=== PATIENT | female | born 1970 | race Caucasian/White ===

== ENCOUNTER 2022-06-15 09:57 | Outpatient (CLI) | payer OTHER, SELFPAY | END 2022-06-15 09:58 | disposition home or self-care (01) | PROVIDERS: PCP Emergency Medicine; Visit Provider Emergency Medicine | DX: Z00.00 Encounter for general adult medical examination without abnormal findings (principal); E11.9 Type 2 diabetes mellitus without complications; E78.5 Hyperlipidemia, unspecified | CPT/HCPCS: 80053; 80061; 82043; 82570 ==

== ENCOUNTER 2023-02-13 14:05 | Outpatient (CLI) | payer OTHER, SELFPAY | END 2023-02-13 14:06 | disposition home or self-care (01) | LOC: LKVREF 14:07 | PROVIDERS: PCP Emergency Medicine; Visit Provider Emergency Medicine | DX: E78.5 Hyperlipidemia, unspecified (principal); E11.9 Type 2 diabetes mellitus without complications; G25.71 Drug induced akathisia; T43.505A Adverse effect of unspecified antipsychotics and neuroleptics, initial encounter | CPT/HCPCS: 84439; 84443 ==

== ENCOUNTER 2023-02-20 12:29 | Outpatient (CLI) | payer OTHER, SELFPAY | END 2023-02-20 12:30 | disposition home or self-care (01) | PROVIDERS: PCP Emergency Medicine; Visit Provider Emergency Medicine | DX: R79.89 Other specified abnormal findings of blood chemistry (principal); E78.5 Hyperlipidemia, unspecified; E11.9 Type 2 diabetes mellitus without complications | CPT/HCPCS: 80053; 80061; 82043; 82570 ==

== ENCOUNTER 2023-03-12 13:33 | Outpatient (CLI) | payer OTHER, SELFPAY ==
--- NOTE | 2023-03-12 13:20 | CRLHL7_ITS ---
For Patients: As a result of the Century Cures Act, medical imaging exams and procedure reports are released immediately into your electronic medical record. You may view this report before your referring provider. If you have questions, please contact your health care provider. BILATERAL SCREENING MAMMOGRAM WITH COMPUTER-AIDED DETECTION TECHNIQUE: CC and MLO views were obtained. These mammographic images have been obtained using full-field digital technique. These mammographic images were interpreted with the benefit of computer-aided detection. COMPARISON FILM: 08/03/20, 07/12/18. FINDINGS: There are scattered areas of fibroglandular density IMPRESSION: There is no radiographic evidence for malignancy. ASSESSMENT: BI-RADS Category 1: Negative RECOMMENDATION: Routine screening mammogram in 1 year. A lay language report of this examination will be provided to the patient. Denilson Huynh M.D. Diagnostic Radiologist [email or web address] HARLEY/[email or web address] Transcribed: 5:04 p.mJacquelin wilson/Dictated by: Denilson Huynh MD @ 03/22/2023 12:48:00 PM (Electronically Signed)
--- NOTE | 2023-03-12 14:00 | CRLHL7_ITS ---
For Patients: As a result of the Century Cures Act, medical imaging exams and procedure reports are released immediately into your electronic medical record. You may view this report before your referring provider. If you have questions, please contact your health care provider. INDICATION: Lung cancer screening. Significant smoking history. TECHNIQUE: Low-dose volumetric helical scanning of the thorax was performed without IV contrast material. Coronal and sagittal reconstructions were obtained. COMPARISON: None. FINDINGS: A noncalcified pleural-based 7 mm right upper lobe nodule is noted on image 33 of series 3. A similar noncalcified pleural-based 5 mm right upper lobe nodule is noted on image 27. A noncalcified 5 mm right apical nodule is noted on image 21. A noncalcified 3 mm right lower lobe nodule is noted on image 55. A noncalcified, triangular, perifissural 6 mm left lower lobe nodule is noted on image 80. The lungs are clear. There is no significant airway abnormality. No pleural effusion is demonstrated. There is no mediastinal or hilar adenopathy. The heart size is normal. Calcified coronary arterial plaque is demonstrated. Images of the upper abdomen are unremarkable except for postop changes of cholecystectomy. IMPRESSION: 1. Noncalcified pulmonary nodules, as above, the largest a pleural-based 7 mm right upper lobe nodule. Lung-RADS CATEGORY 2: BENIGN APPEARANCE OR BEHAVIOR: Continue annual screening with low-dose chest CT in 12 months. 2. Coronary artery disease. Please note that all CT scans at this facility use dose modulation, iterative reconstruction, and/or weight-based dosing when appropriate to reduce radiation dose to as low as reasonably achievable. Dictated by Marcio King MD @ 03/13/2023 8:55:59 AM (Electronically Signed)
== END 2023-03-12 13:34 | disposition home or self-care (01) ==
LOC: MAMMO 13:34
PROVIDERS: PCP Emergency Medicine; Visit Provider Emergency Medicine
DX: Z12.31 Encounter for screening mammogram for malignant neoplasm of breast (principal); F17.210 Nicotine dependence, cigarettes, uncomplicated; R91.8 Other nonspecific abnormal finding of lung field; I25.10 Atherosclerotic heart disease of native coronary artery without angina pectoris; Z12.2 Encounter for screening for malignant neoplasm of respiratory organs
CPT/HCPCS: 71271; 77067

== ENCOUNTER 2023-04-02 09:51 | Outpatient (CLI) | payer OTHER, SELFPAY | END 2023-04-02 09:52 | disposition home or self-care (01) | LOC: OP CLINIC 09:53 | PROVIDERS: PCP Emergency Medicine; Visit Provider Internal Medicine | DX: Z53.8 Procedure and treatment not carried out for other reasons (principal) ==

== ENCOUNTER 2023-04-06 09:47 | Outpatient (CLI) | payer OTHER, SELFPAY ==
--- NOTE | 2023-04-06 10:47 | W.ANESCHARGE ---
Anesthesia Charges Start Date/Time Anesthesia Start Date: 04/06/23 Anesthesia Start Time: 10:40 Stop Date/Time Anesthesia Stop Date: 04/06/23 Anesthesia Stop Time: 11:11
--- NOTE | 2023-04-06 11:14 | W.ANESCHARGE ---
Anesthesia Charges Start Date/Time Anesthesia Start Date: 04/06/23 Anesthesia Start Time: 10:40 Stop Date/Time Anesthesia Stop Date: 04/06/23 Anesthesia Stop Time: 11:11
== END 2023-04-06 09:48 | disposition home or self-care (01) ==
LOC: OP CLINIC 09:48
PROVIDERS: PCP Emergency Medicine; Visit Provider Internal Medicine
DX: Z12.11 Encounter for screening for malignant neoplasm of colon (principal); K57.30 Diverticulosis of large intestine without perforation or abscess without bleeding
CPT/HCPCS: 00811; 00812; 45378; J2704

== ENCOUNTER 2023-04-17 20:37 | Outpatient (CLI) | payer OTHER, SELFPAY | END 2023-04-17 20:38 | disposition home or self-care (01) | LOC: LKVREF 20:38 | PROVIDERS: PCP Emergency Medicine; Visit Provider Emergency Medicine | DX: E11.9 Type 2 diabetes mellitus without complications (principal); Z13.21 Encounter for screening for nutritional disorder | CPT/HCPCS: 82043; 82565; 82570; 82607 ==

== ENCOUNTER 2023-06-21 20:39 | Emergency (ER) | payer OTHER, SELFPAY ==
[2023-06-21 20:49] VITALS: BP 130/84; PULSE 116; RESP 20; TEMP 36.7; O2SAT 95; BMI 30.9
--- NOTE | 2023-06-21 21:01 | CT_ITS ---
Patient: DELMY JORDAN Facility:?[facility] RIS Patient ID:?[id number] Site Patient ID:?[id number] Site :?[id number] Study:?CT-Abdomen/Pelvis W/O-06/21/2023 9:42:23 PM Ordering Physician:GITA Final Report: INDICATION: Pelvic pain, hematuria TECHNIQUE: CT Abdomen and pelvis without i.v. contrast. Coronal and sagittal reformats were obtained. COMPARISON: None FINDINGS: Lower chest: Unremarkable. Liver: Unremarkable. Spleen: Unremarkable. Pancreas: Unremarkable. Gallbladder: Previous cholecystectomy noted with no significant intra- or extrahepatic biliary ductal dilatation seen. Kidney: Mild right hydroureter is present with infiltration of the surrounding periureteral fat seen. No obstructing calculi are identified. Adrenal: Unremarkable. Bowel: Moderate diverticulosis of the sigmoid colon is present with no evidence of diverticulitis. There is a gasless density near the ileocecal valve without any apparent obstruction of the terminal ileum. This is most likely due to small bowel contents incompletely mixing with cecal stool. The appendix is not identified. Vascular: Unremarkable. Lymph: Unremarkable. Peritoneum: Unremarkable. No pneumoperitoneum is seen. No significant ascites is noted. Pelvis: The patient is status post hysterectomy. Soft tissue: Unremarkable. Bone: Ill-defined patchy sclerosis of the left posterior iliac bone is seen. IMPRESSIONS: 1. Mild right hydroureter is present with infiltration of the surrounding periureteral fat seen. No obstructing calculi are identified. Correlation with history and urinalysis is recommended to distinguish between a recently passed stone or an ascending urinary tract infection. 2. Ill-defined patchy sclerosis of the left posterior iliac bone is seen. Further evaluation with MRI or bone scan is recommended, especially if there is history of primary malignancy. Dictated by Carroll Woo MD @ 06/21/2023 9:48:59 PM Please note that all CT scans at this facility use dose modulation, iterative reconstruction, and/or weight-based dosing when appropriate to reduce radiation dose to as low as reasonably achievable. Dictated by: Carroll Woo MD @ 06/21/2023 21:49:02 Signed by:?Carroll Woo MD @06/21/2023 9:49:02 PM (Electronic Signature)
[2023-06-21 21:03] LABS: Appearance Urine Turbid (Clear); Bilirubin Urine Negative (Negative); Blood Urine 3+ (Negative); Glucose Urine Negative (Negative); Ketones Urine Negative (Negative); Leukocyte Esterase Urine Trace (Negative); Nitrite Urine Negative (Negative); Protein Urine 3+ (Negative); Specific Gravity Urine 1.025 (1.000-1.030)
[2023-06-21 21:07] LABS: Color Urine Red (Yellow)
[2023-06-21 21:08] LABS: RBC Urine >100 (0-2); WBC Urine 0-2 (0-5)
[2023-06-21 21:32] LABS: Basophils Absolute Auto 0.02 K/uL (0.00-0.30); Basophils Percent Auto 0.2 % (0.0-3.0); Eosinophils Absolute Auto 0.11 K/uL (0.00-0.50); Eosinophils Percent Auto 1.1 % (0.0-7.0); Hematocrit 40.7 % (33.0-51.0); Hemoglobin* 13.3 gm/dL (12.0-16.0); Immature Granulocytes Abs Auto 0.03 K/uL (0.00-0.30); Immature Granulocytes Pct Auto 0.3 %; Lymphocytes Absolute Auto 2.42 K/uL (0.90-2.90); Lymphocytes Percent Auto 23.6 % (20-44); Mean Corpuscular HGB Conc 33 gm/dL (32-36); Mean Corpuscular Hemoglobin 31 pg (26-34); Mean Corpuscular Volume 96 fL (80-100); Monocytes Percent Auto 5.1 % (0.0-11.0); Neutrophils Absolute Auto 7.16 K/uL (1.7-7.0); Neutrophils Percent Auto 69.7 % (42.0-72.0); Platelet Count* 253 K/uL (140-440); RDW Coefficient of Variation % 14.3 % (11.5-15.5); Red Blood Count 4.25 m/uL (4.00-5.20); White Blood Count* 10.26 K/uL (4.50-11.00)
[2023-06-21 21:33] LABS: Slide Review Reflex No
[2023-06-21 21:49] LABS: Chloride* 108 mmol/L (96-114); Potassium* 3.9 mmol/L (3.6-5.1); Sodium* 140 mmol/L (135-149)
[2023-06-21 21:51] LABS: Creatinine* 0.5 mg/dL (0.5-1.5); Est. Creatinine Clearance* 112.36; Estimated Glomerular Filt Rate 112 ml/min
[2023-06-21 21:52] LABS: Anion Gap 3 mEq/L (7-15); Blood Urea Nitrogen* 12 mg/dL (7-30); Calcium* 9.1 mg/dL (8.4-10.6); Carbon Dioxide* 29 mmol/L (20-32); Glucose* 91 mg/dL (60-115)
[2023-06-21 21:56] LABS: C Reactive Protein* 5.7 mg/dL (0.5-1.0)
[2023-06-21 21:59] VITALS: BP 117/67; PULSE 107; RESP 18; O2SAT 95
--- NOTE | 2023-06-21 23:40 | ED_ITS ---
HPI - General Adult General Date Seen: 06/21/23 Chief complaint: Abdominal Pain Stated complaint: Peeing blood, pelvic pain for a week, diverticulti Time Seen by Provider: 06/21/23 20:45 Source: patient, RN notes reviewed and old records reviewed Mode of arrival: ambulatory Limitations: no limitations History of Present Illness HPI narrative: Patient is a 52-year-old woman here with her for evaluation of hematuria and pelvic discomfort. She has noted some pelvic pain which she says has been across her entire pelvis for the past week to week and a half. She has taken occasional Tylenol for that. She denies any dysuria, frequency, or changes in her chronic urinary urgency. She has not had any vomiting, fevers or chills. Occasionally has had a little nausea. Tonight she noted hematuria which is what ultimately prompted her to come in. She has not had any unilateral flank pain but she says she has had some pain that radiates both sides of her back. She is status post hysterectomy. No vaginal bleeding. Other abdominal surgeries include and cholecystectomy. Other medical history reviewed. She does smoke, denies alcohol use. Here tonight with her . Related Data Home Medications Medication Instructions Recorded Confirmed sertraline 100 mg tablet 100 mg PO DAILY 02/13/23 06/21/23 risperidone 1 mg tablet mg PO 03/15/23 05/08/23 Previous Rx's Medication Instructions Recorded cyclobenzaprine 10 mg tablet 10 mg PO TID PRN muscle spasm #30 12/05/22 tabs lorazepam 0.5 mg tablet 0.5 mg PO BID PRN restlessness 02/13/23 #10 tabs pimecrolimus 1 % topical cream 1 applic topical BID #30 grams 02/20/23 (Elidel) albuterol sulfate 90 mcg/actuation 2 puff inhalation Q4H PRN 03/15/23 aerosol inhaler (Ventolin HFA) shortness of breath or wheezing #8.5 grams atorvastatin 80 mg tablet 80 mg PO QDAY #90 tabs 03/15/23 budesonide-formoterol HFA 160 2 puff inhalation BID #10.2 grams 03/15/23 mcg-4.5 mcg/actuation aerosol inhaler (Symbicort) gabapentin 600 mg tablet 600 mg PO TID #270 tabs 03/15/23 ipratropium 0.5 mg-albuterol 3 mg 3 ml inhalation TID #90 mL 03/15/23 (2.5 mg base)/3 mL nebulization soln metformin 500 mg tablet 1,000 mg (2 x 500 mg) PO BID #360 03/15/23 tabs sumatriptan succinate 100 mg tablet 100 mg PO .As Needed PRN migraine 03/15/23 headache #9 tabs albuterol sulfate 90 mcg/actuation 2 puff inhalation Q4H PRN 03/21/23 aerosol inhaler (Proventil HFA) shortness of breath or wheezing #8.5 grams peg 3350-electrolytes 236 240 ml PO ONCE #4,000 mL 03/30/23 gram-22.74 gram-6.74 gram-5.86 gram solution (Golytely) bupropion HCl 100 mg tablet,12 hr 100 mg PO QAM #30 tabs 04/30/23 sustained-release semaglutide 1 mg/dose (4 mg/3 mL) 1 mg (0.75 mL) subcut QWEEK #3 mL 04/30/23 subcutaneous pen injector (Ozempic) prednisone 20 mg tablet 40 mg (2 x 20 mg) PO QDAY #10 tabs 05/02/23 semaglutide 2 mg/dose (8 mg/3 mL) 2 mg (0.75 mL) subcut QWEEK #3 mL 05/02/23 subcutaneous pen injector (Ozempic) famotidine 20 mg tablet (Pepcid) 20 mg PO BID #60 tabs 05/08/23 ibuprofen 800 mg tablet 800 mg PO TID PRN pain #30 tabs 05/24/23 Allergies Allergy/AdvReac Type Severity Reaction Status Date / Time No Known Allergies Allergy Unknown Verified 06/21/23 20:49 Review of Systems Status of ROS: Reports: 10 or more systems reviewed and unremarkable except as noted in History and below [facility] Medical History SOB (shortness of breath) ?R06.02 - Shortness of breath (ICD-10) Cough ?R05.9 - Cough, unspecified (ICD-10) Rib fracture ?S22.39XA - Fracture of one rib, unspecified side, initial encounter for closed fracture (ICD-10) CAD (coronary artery disease) ?I25.10 - Atherosclerotic heart disease of [place] coronary artery without angina pectoris (ICD-10) Tubular adenoma ?D36.9 - Benign neoplasm, unspecified site (ICD-10) Eyelid dermatitis, allergic/contact ?H01.119 - Allergic dermatitis of unspecified eye, unspecified eyelid (ICD- 10) Elevated TSH ?R79.89 - Other specified abnormal findings of blood chemistry (ICD-10) Hoarseness of voice ?R49.0 - Dysphonia (ICD-10) Screening mammogram for breast cancer ?Z12.31 - Encounter for screening mammogram for malignant neoplasm of breast (ICD-10) Smoking greater than 40 pack years ?F17.210 - Nicotine dependence, cigarettes, uncomplicated (ICD-10) Antipsychotic-induced akathisia ?G25.71 - Drug induced akathisia (ICD-10) ?T43.505A - Adverse effect of unspecified antipsychotics and neuroleptics, initial encounter (ICD-10) Radicular pain ?M54.10 - Radiculopathy, site unspecified (ICD-10) Chronic constipation ?K59.09 - Other constipation (ICD-10) DOS (diffuse esophageal spasm) ?K22.4 - Dyskinesia of esophagus (ICD-10) Diverticulitis ?K57.92 - Diverticulitis of intestine, part unspecified, without perforation or abscess without bleeding (ICD-10) Encounter for smoking cessation counseling ?Z71.6 - Tobacco abuse counseling (ICD-10) Neuropathy ?G62.9 - Polyneuropathy, unspecified (ICD-10) Migraine ?G43.909 - Migraine, unspecified, not intractable, without status migrainosus (ICD-10) Depression ?F32.A - Depression, unspecified (ICD-10) Hand pain ?M79.643 - Pain in unspecified hand (ICD-10) Gestational diabetes ?O24.419 - Gestational diabetes mellitus in , unspecified control (ICD-10) Diabetes mellitus type 2, controlled ?E11.9 - Type 2 diabetes mellitus without complications (ICD-10) Cigarette smoker ?F17.210 - Nicotine dependence, cigarettes, uncomplicated (ICD-10) COPD (chronic obstructive pulmonary disease) ?J44.9 - Chronic obstructive pulmonary disease, unspecified (ICD-10) Hyperlipemia ?E78.5 - Hyperlipidemia, unspecified (ICD-10) Surgical History Hx of tonsillectomy ?Z90.89 - Acquired absence of other organs (ICD-10) History of repair of anterior cruciate ligament of right knee ?Z98.890 - Other specified postprocedural states (ICD-10) S/P NINA-BSO (total abdominal hysterectomy and bilateral salpingo-oophorectomy) ?Z90.710 - Acquired absence of both cervix and uterus (ICD-10) ?Z90.722 - Acquired absence of ovaries, bilateral (ICD-10) ?Z90.79 - Acquired absence of other genital organ(s) (ICD-10) History of endometriosis ?Z87.42 - Personal history of other diseases of the female genital tract (ICD-10) Hx laparoscopic cholecystectomy ?Z90.49 - Acquired absence of other specified parts of digestive tract (ICD- 10) History of carpal tunnel surgery of right wrist ?Z98.890 - Other specified postprocedural states (ICD-10) Hx of hernia repair ?Z98.890 - Other specified postprocedural states (ICD-10) ?Z87.19 - Personal history of other diseases of the digestive system (ICD-10) Hx of section ?Z98.891 - History of uterine scar from previous surgery (ICD-10) History of ear surgery ?Z98.890 - Other specified postprocedural states (ICD-10) Hx of colonoscopy ?Z98.890 - Other specified postprocedural states (ICD-10) Hx of esophagogastroduodenoscopy ?Z98.890 - Other specified postprocedural states (ICD-10) H/O dilation and curettage ?Z98.890 - Other specified postprocedural states (ICD-10) Family History Father Pancreatic cancer Long QT syndrome Brother Bipolar 1 disorder Schizophrenia Mother Coronary artery disease Social History Smoking Status: Current every day smoker Exam Narrative: Exam Narrative: Vital signs as noted above. In general, an alert, well-appearing patient. She looks comfortable. Head: Normocephalic, atraumatic. Eyes: Pupils are equal reactive. Extraocular movements are full. Conjunctivae are normal. ENT: Mucous membranes are moist. Throat is normal. Neck: Supple without lymphadenopathy. Heart: Regular rate and rhythm. No murmur or rub. Lungs: Clear bilaterally. No increased work of breathing, crackles or wheezes. Abdomen: Soft and nontender. No rebound guarding or rigidity. Extremities: Well perfused. No edema. No calf tenderness. Pulses intact. Neurologic: Patient is alert and oriented to person and place. Speech is fluent. Face is symmetric. Moves all extremities equally. Affect: Normal. Skin: Warm and dry. Well perfused. Const: Vital Signs, click to edit/add: Vital Signs - 24 hr 06/21/23 20:49 06/21/23 21:59 Temperature 98.1 F Pulse Rate [Left P ulse Oximeter] 116 H 107 H Respiratory Rate 20 18 Blood Pressure [Ri ght Upper Arm] 130/84 117/67 Pulse Oximetry 95 95 Oxygen Delivery Me thod Room Air Room Air Documenting provider has reviewed patient's vital signs: yes Course Course ED Course: I ordered a CT scan without contrast. Diagnostic considerations would include urinary tract infection, bladder or kidney stones, renal mass, other obstructive process. Labs were notable for a normal white blood cell count of 10.3, normal hemoglobin of 13.3 and normal platelets. Metabolic panel is really unremarkable, CRP was little elevated at 5.7. Creatinine was 0.5. UA notable for greater than 100 red cells, 0-2 white cells. Negative nitrites. Patient was comfortable here while here, did not require anything for pain. CT abdomen read by radiology as follows:FINDINGS: Lower chest: Unremarkable. Liver: Unremarkable. Spleen: Unremarkable. Pancreas: Unremarkable. Gallbladder: Previous cholecystectomy noted with no significant intra- or extrahepatic biliary ductal dilatation seen. Kidney: Mild right hydroureter is present with infiltration of the surrounding periureteral fat seen. No obstructing calculi are identified. Adrenal: Unremarkable. Bowel: Moderate diverticulosis of the sigmoid colon is present with no evidence of diverticulitis. There is a gasless density near the ileocecal valve without any apparent obstruction of the terminal ileum. This is most likely due to small bowel contents incompletely mixing with cecal stool. The appendix is not identified. Vascular: Unremarkable. Lymph: Unremarkable. Peritoneum: Unremarkable. No pneumoperitoneum is seen. No significant ascites is noted. Pelvis: The patient is status post hysterectomy. Soft tissue: Unremarkable. Bone: Ill-defined patchy sclerosis of the left posterior iliac bone is seen. IMPRESSIONS: 1. Mild right hydroureter is present with infiltration of the surrounding periureteral fat seen. No obstructing calculi are identified. Correlation with history and urinalysis is recommended to distinguish between a recently passed stone or an ascending urinary tract infection. 2. Ill-defined patchy sclerosis of the left posterior iliac bone is seen. Further evaluation with MRI or bone scan is recommended, especially if there is history of primary malignancy. I discussed all this with the patient. I did neglect to put the iliac bone findings on her discharge instructions, but I reviewed this carefully with both patient and her has been. She tells me that she has been seeing an orthopedic clinic recently for problems with her sciatic nerve, and has been waiting on ins urance approval to get an MRI of her back. We discussed ways to show the orthopedic clinic the report and or images from tonight CT scan and she plans to follow this up with them. With regard to the hematuria, it is possible that she simply passed a stone. Right now she is comfortable. Discussed with her at this time that there was no evidence of urinary tract infection or obvious source of obstruction but it does look like that kidney is obstructed. If hematuria and discomfort do not resolve over the next day or 2 I would recommend Urology follow-up to make sure that there is not some sort of soft tissue process. Return to the ER at any time for severe uncontrolled pain, fevers, chills, vomiting, urinary retention, or other acute worsening. Vital Signs Vital signs: Initial Vital Signs Temperature 98.1 F 06/21/23 20:49 Temperature Source Temporal Artery Scan 06/21/23 20:49 Pulse Rate 116 H 06/21/23 20:49 Pulse Rhythm Regular, Irregularly Irregular 06/21/23 20:49 Respiratory Rate 20 06/21/23 20:49 Blood Pressure 130/84 06/21/23 20:49 Blood Pressure Mean 99 06/21/23 20:49 Blood Pressure Position Sitting 06/21/23 20:49 Pulse Oximetry 95 06/21/23 20:49 Oxygen Delivery Method Room Air 06/21/23 20:49 Vital Signs Temperature 98.1 F 06/21/23 20:49 Pulse Rate 116 H 06/21/23 20:49 Respiratory Rate 20 06/21/23 20:49 Blood Pressure 130/84 06/21/23 20:49 Pulse Oximetry 95 06/21/23 20:49 Oxygen Delivery Method Room Air 06/21/23 20:49 Temperature 98.1 F 06/21/23 20:49 Pulse Rate 107 H 06/21/23 21:59 Respiratory Rate 18 06/21/23 21:59 Blood Pressure 117/67 06/21/23 21:59 Pulse Oximetry 95 06/21/23 21:59 Oxygen Delivery Method Room Air 06/21/23 21:59 Medical Decision Making Lab Data Labs: Lab Results 06/21/23 06/21/23 Range/Units 20:43 21:25 WBC 10.26 (4.50-11.00) K/uL RBC 4.25 (4.00-5.20) m/uL Hgb 13.3 (12.0-16.0) gm/dL Hct 40.7 (33.0-51.0) % MCV 96 (80-100) fL MCH 31 (26-34) pg MCHC 33 (32-36) gm/dL RDW Coeff of [place] 14.3 (11.5-15.5) % Plt Count 253 (140-440) K/uL Neut % (Auto) 69.7 (42.0-72.0) % Lymph % (Auto) 23.6 (20-44) % [place] % (Auto) 5.1 (0.0-11.0) % Eos % (Auto) 1.1 (0.0-7.0) % Baso % (Auto) 0.2 (0.0-3.0) % Neut # (Auto) 7.16 H (1.7-7.0) K/uL Lymph # (Auto) 2.42 (0.90-2.90) K/uL [place] # (Auto) 0.50 (0.00-0.90) K/UL Eos # (Auto) 0.11 (0.00-0.50) K/uL Baso # (Auto) 0.02 (0.00-0.30) K/uL Abs Immat Gran (auto) 0.03 (0.00-0.30) K/uL Imm/Tot Granulo (auto) 0.3 % Sodium 140 (135-149) mmol/L Potassium 3.9 (3.6-5.1) mmol/L Chloride 108 (96-114) mmol/L Carbon Dioxide 29 (20-32) mmol/L Anion Gap 3 L (7-15) mEq/L BUN 12 (7-30) mg/dL Creatinine 0.5 (0.5-1.5) mg/dL Estimated Creat Clear 112.36 Estimated GFR 112 ml/min Glucose 91 (60-115) mg/dL Calcium 9.1 (8.4-10.6) mg/dL C-Reactive Protein 5.7 H (0.5-1.0) mg/dL Urine Color Red A Cancelled (Yellow) Urine Appearance Turbid A Cancelled (Clear) Urine pH 7.0 Cancelled (5.0-8.5) Ur Specific [place] 1.025 Cancelled (1.000-1.030) Urine Protein 3+ A Cancelled (Negative) Urine Glucose (UA) Negative Cancelled (Negative) Urine Ketones Negative Cancelled (Negative) Urine Blood 3+ A Cancelled (Negative) Urine Nitrite Negative Cancelled (Negative) Urine Bilirubin Negative Cancelled (Negative) Urine Urobilinogen 1.0 Cancelled (0.2-1.0) Ur Leukocyte Esterase Trace A Cancelled (Negative) Urine RBC >100 A Cancelled (0-2) Urine WBC 0-2 Cancelled (0-5) Urine WBC Clumps Cancelled Ur Squamous Epith Cells None Cancelled (None-Few) [place] Biurate Crystals Cancelled Calcium Carbonate Cryst Cancelled Calcium Phosphate Cryst Cancelled Calcium Oxalate Crystal Cancelled Cystine Crystals Cancelled Uric Acid Crystals Cancelled Triple Phos Crystals Cancelled Sulfur Crystals Cancelled Cholesterol Crystals Cancelled Tyrosine Crystals Cancelled Hippuric Acid Crystals Cancelled Amorphous Sediment Cancelled Other Sediment Cancelled Urine Bacteria None Cancelled (None) Fatty Casts Cancelled Hyaline Casts Cancelled Fine Granular Casts Cancelled Coarse Granular Casts Cancelled Waxy Casts Cancelled RBC Casts Cancelled WBC Casts Cancelled Other Casts Cancelled Urine Starch Cancelled Urine Mucus Cancelled Urine Trichomonas Cancelled Urine Yeast Cancelled Discharge Plan Discharge Clinical Impression: Hydronephrosis, Hematuria Patient Disposition: Home, Self-Care Condition: Improved Instructions: Hematuria (ED), Hydronephrosis (ED) Additional Instructions: Ibuprofen if needed. Blood in your urine and discomfort should resolve over the next 1-2 days. If not, please call Urology on Sunday to be seen in follow-up.[phone] is the phone number for [place] [facility]. They have multiple clinic locations. If at any time you have severe uncontrolled pain, new symptoms such as fever, chills, vomiting, inability to void, return to the emergency department. Prescriptions: No Action sertraline 100 mg tablet 100 mg PO DAILY lorazepam 0.5 mg tablet 0.5 mg PO BID PRN (Reason: restlessness ) Qty: 10 0RF risperidone 1 mg tablet PO sumatriptan succinate 100 mg tablet 100 mg PO .As Needed PRN (Reason: migraine headache) Qty: 9 11RF Rx Instructions: ONE TAB AT ONSET OF HEADACHE, MAY REPEAT ONCE IN 2 HRS, MAX 200 MG/24 HRS metformin 500 mg tablet 1,000 mg PO BID Qty: 360 3RF gabapentin 600 mg tablet 600 mg PO TID Qty: 270 3RF budesonide-formoterol [Symbicort] 160-4.5 mcg/actuation HFA aerosol inhaler 2 puff inhalation BID Qty: 10.2 5RF albuterol sulfate [Ventolin HFA] 90 mcg/actuation HFA aerosol inhaler 2 puff inhalation Q4H PRN (Reason: shortness of breath or wheezing) Qty: 8.5 11RF ipratropium-albuterol 0.5 mg-3 mg(2.5 mg base)/3 mL solution for nebulization 3 ml inhalation TID Qty: 90 11RF atorvastatin 80 mg tablet 80 mg PO QDAY Qty: 90 1RF Ozempic 2 mg/dose (8 mg/3 mL) pen injector 2 mg subcut QWEEK Qty: 3 2RF prednisone 20 mg tablet 40 mg PO QDAY Qty: 10 0RF pimecrolimus [Elidel] 1 % cream 1 applic topical BID Qty: 30 0RF famotidine [Pepcid] 20 mg tablet 20 mg PO BID Qty: 60 5RF cyclobenzaprine 10 mg tablet 10 mg PO TID PRN (Reason: muscle spasm) Qty: 30 0RF albuterol sulfate [Proventil HFA] 90 mcg/actuation HFA aerosol inhaler 2 puff inhalation Q4H PRN (Reason: shortness of breath or wheezing) Qty: 8.5 11RF peg 3350-electrolytes [Golytely] 236-22.74-6.74 -5.86 gram recon soln 240 ml PO ONCE Qty: 4000 0RF Rx Instructions: 4pm day prior to procedure. Drink 8oz glass every 15 minutes until 1/2 of solution is gone. 6 hours prior to your procedure time drink 8oz glass every 15 minutes until remaining solution is gone. bupropion HCl 100 mg tablet sustained-release 12 hr 100 mg PO QAM Qty: 30 0RF Ozempic 1 mg/dose (4 mg/3 mL) pen injector 1 mg subcut QWEEK Qty: 3 0RF ibuprofen 800 mg tablet 800 mg PO TID PRN (Reason: pain) Qty: 30 0RF Follow Up/Referrals: Ilana Steve MD [Primary Care Provider] - Stand Alone Forms: [facility] Info Instructions
== END 2023-06-21 22:51 | disposition home or self-care (01) ==
PROVIDERS: Emergency Provider Emergency Medicine; PCP Emergency Medicine
DX: R31.9 Hematuria, unspecified (principal); N13.2 Hydronephrosis with renal and ureteral calculous obstruction
CPT/HCPCS: 36415; 74176; 80048; 81001; 85025; 86140; 87086; 87186; 99284

== ENCOUNTER 2023-10-04 13:37 | Outpatient (REF) | payer OTHER, SELFPAY ==
[2023-10-04 14:06] LABS: Basophils Absolute Auto 0.03 K/uL (0.00-0.30); Basophils Percent Auto 0.6 % (0.0-3.0); Eosinophils Percent Auto 2.1 % (0.0-7.0); Hematocrit 40.2 % (33.0-51.0); Hemoglobin* 13.4 gm/dL (12.0-16.0); Immature Granulocytes Abs Auto 0.06 K/uL (0.00-0.30); Immature Granulocytes Pct Auto 1.3 %; Lymphocytes Absolute Auto 1.17 K/uL (0.90-2.90); Lymphocytes Percent Auto 24.7 % (20-44); Mean Corpuscular HGB Conc 33 gm/dL (32-36); Mean Corpuscular Hemoglobin 32 pg (26-34); Mean Corpuscular Volume 96 fL (80-100); Monocytes Percent Auto 0.4 % (0.0-11.0); Neutrophils Absolute Auto 3.36 K/uL (1.7-7.0); Neutrophils Percent Auto 70.9 % (42.0-72.0); Platelet Count* 240 K/uL (140-440); RDW Coefficient of Variation % 12.3 % (11.5-15.5); White Blood Count* 4.74 K/uL (4.50-11.00)
[2023-10-04 14:21] LABS: Slide Review Reflex No
== END 2023-10-04 13:38 | disposition home or self-care (01) ==
LOC: NPINS 13:37
PROVIDERS: Internal Medicine Hematology & Oncology; PCP Emergency Medicine
DX: J38.1 Polyp of vocal cord and larynx (principal); C83.38 Diffuse large B-cell lymphoma, lymph nodes of multiple sites
CPT/HCPCS: 85025

== ENCOUNTER 2023-10-24 10:11 | Outpatient (CLI) | payer OTHER, SELFPAY | END 2023-10-24 10:12 | disposition home or self-care (01) | LOC: NFLDREF 10-29 07:03 | PROVIDERS: PCP Physician Assistant Medical; Referring Provider Emergency Medicine; Visit Provider Emergency Medicine | DX: E78.2 Mixed hyperlipidemia (principal) | CPT/HCPCS: 80061 ==

== ENCOUNTER 2023-10-25 11:57 | Outpatient (REF) | payer OTHER, SELFPAY ==
[2023-10-25 12:36] LABS: Basophils Absolute Auto 0.02 K/uL (0.00-0.30); Basophils Percent Auto 0.3 % (0.0-3.0); Eosinophils Absolute Auto 0.04 K/uL (0.00-0.50); Eosinophils Percent Auto 0.6 % (0.0-7.0); Hematocrit 42.3 % (33.0-51.0); Hemoglobin* 14.2 gm/dL (12.0-16.0); Immature Granulocytes Abs Auto 0.04 K/uL (0.00-0.30); Immature Granulocytes Pct Auto 0.6 %; Lymphocytes Percent Auto 15.5 % (20-44); Mean Corpuscular HGB Conc 34 gm/dL (32-36); Mean Corpuscular Hemoglobin 32 pg (26-34); Mean Corpuscular Volume 94 fL (80-100); Monocytes Percent Auto 0.6 % (0.0-11.0); Neutrophils Percent Auto 82.4 % (42.0-72.0); Platelet Count* 233 K/uL (140-440); RDW Coefficient of Variation % 12.8 % (11.5-15.5); Red Blood Count 4.51 m/uL (4.00-5.20)
[2023-10-25 12:38] LABS: Slide Review Reflex No
== END 2023-10-25 11:58 | disposition home or self-care (01) ==
LOC: NPINS 11:57
PROVIDERS: PCP Physician Assistant Medical; Visit Provider Internal Medicine Hematology & Oncology
DX: J38.1 Polyp of vocal cord and larynx (principal); C83.38 Diffuse large B-cell lymphoma, lymph nodes of multiple sites
CPT/HCPCS: 85025

== ENCOUNTER 2023-11-01 15:04 | Outpatient (REF) | payer OTHER, SELFPAY ==
[2023-11-01 15:42] LABS: Basophils Percent Auto 1.8 % (0.0-3.0); Eosinophils Percent Auto 2.3 % (0.0-7.0); Hematocrit 39.1 % (33.0-51.0); Hemoglobin* 12.7 gm/dL (12.0-16.0); Lymphocytes Percent Auto 46.2 % (20-44); Mean Corpuscular HGB Conc 33 gm/dL (32-36); Mean Corpuscular Hemoglobin 31 pg (26-34); Mean Corpuscular Volume 97 fL (80-100); Monocytes Percent Auto 14.6 % (0.0-11.0); Neutrophils Percent Auto 35.1 % (42.0-72.0); Platelet Count* 163 K/uL (140-440); RDW Coefficient of Variation % 13.6 % (11.5-15.5); Red Blood Count 4.04 m/uL (4.00-5.20)
[2023-11-01 16:01] LABS: Slide Review Reflex Yes; White Blood Count* 1.71 K/uL (4.50-11.00)
[2023-11-01 16:02] LABS: Slide Review Acceptable Review (Acceptable)
== END 2023-11-01 15:05 | disposition home or self-care (01) ==
LOC: NPINS 15:04
PROVIDERS: PCP Physician Assistant Medical; Visit Provider Internal Medicine Hematology & Oncology
DX: J38.1 Polyp of vocal cord and larynx (principal); C83.38 Diffuse large B-cell lymphoma, lymph nodes of multiple sites
CPT/HCPCS: 85025

== ENCOUNTER 2023-11-20 18:24 | Inpatient (IN) | payer OTHER, SELFPAY ==
[2023-11-20] VITALS (23 sets, daily range): BP systolic 87–132; BP diastolic 37–79; PULSE 91–134; RESP 16–20; TEMP 37.3–39.6; O2SAT 86–96; BMI 29.5; BMI 29.6
--- NOTE | 2023-11-20 18:45 | CRLHL7_ITS ---
For Patients: As a result of the Century Cures Act, medical imaging exams and procedure reports are released immediately into your electronic medical record. You may view this report before your referring provider. If you have questions, please contact your health care provider. INDICATION: Dyspnea. TECHNIQUE: Chest radiographs, 2 views. COMPARISON: None. FINDINGS: Cardiovascular/Mediastinum: Normal heart size. Unremarkable. Lungs: No focal consolidation. Linear band like opacification of the lungs bilaterally, likely subsegmental atelectasis and/or scarring. Airways: Trachea remains midline. Pleura: No pleural effusions or pneumothorax. Bones: No acute osseous abnormalities. Upper abdomen: Unremarkable. IMPRESSION: No acute cardiopulmonary process. Dictated by Stevo Sheldon MD @ 11/20/2023 7:28:36 PM (Electronically Signed)
[2023-11-20] MEDS: ACETAMINOPHEN 500 MG TABLET 1000 MG PO (19:02)
--- OUTSIDE RECORDS SUMMARY | 2023-11-20 19:19 | XMS_ITS | Encounter Summary ---
Author Organization [facility] Address [address] [place] [address] Care Team Providers Care Securities And Real Estate Director Name Role Phone Umberto Mauricio Primary Care Provider [phone] [facility] Encounter Details Date Type Department Care Team (Late st Contact Info) Description 11/08/2021 MyC Medical Advice [facility] [id number] [place] [id number] Jonas Doss, DAG COATER Social History Tobacco Use Types Packs/Day Years Used Date Smoking Tobacco: Every Day Cigarettes Smokeless Tobacco: Never Comments:30 yrs Alcohol Use Standard Drinks/Week Comments No 0 (1 standard drink = 0.6 oz pur e alcohol) Social Connection and Isolation Panel [NHANES] A nswer Date Recorded In a typical week, how many times do you talk on the phone with family, friends, or neighbors? Three times a week 10/20/2021 How often do you get togethe r with friends or relatives? Once a week 10/20/2021 How often do you attend chur ch or sikh services? Patient declined 10/20/2021 Do you belong to any clubs o r organizations such as alevism groups, unions, fraternal or athletic groups, or school groups? Patient declined 10/20/2021 Attends Club or Organization Meetings Not on smitha e 10/20/2021 Are you , , di vorced, , never , or living with a partner? 10/20/2021 AUDIT-C Answer Date Recorded Q1: How often do you have a drink containing alc ohol? Monthly or less 10/20/2021 Q2: How many drinks containi ng alcohol do you have on a typical day when you are drinking? 1 or 2 10/20/2021 Q3: How often do you have si x or more drinks on one occasion? Never 10/20/2021 Overall Financial Resource Strain (CARDIA) Answe r Date Recorded How hard is it for you to pa y for the very basics like food, housing, medical care, and heating? Somewhat hard 10/20/2021 PHQ-2 Answer Date Recorded PHQ-2 Score 0 10/20/2021 [facility] - Occupational Stress Questionnaire Answer Date Recorded Do you feel stress - tense, restless, nervous, or anxious, or unable to sleep at night because your mind is troubled all the time - these days? Not at all 10/20/2021 Exercise Vital Sign Answer Date Recorde d On average, how many days pe r week do you engage in moderate to strenuous exercise (like a brisk walk)? 4 days 10/20/2021 On average, how many minutes do you engage in exercise at this level? 20 min 10/20/2021 Hunger Vital Sign Answer Date Recorded Within the past 12 months, y ou worried that your food would run out before you got the money to buy more. Patient declined Within the past 12 months, t he food you bought just didn't last and you didn't have money to get more. Patient declined 09/2021 PRAPARE - Transportation Answer Date Re corded In the past 12 months, has l ack of transportation kept you from medical appointments or from getting medications? No 09/2021 In the past 12 months, has l ack of transportation kept you from meetings, work, or from getting things needed for daily living? No 10/20/2021 Sex and Gender Information Value Date Recorded Sex Assigned at Not on file Gender Identity Not on file Sexual Orientation Not on file COVID-19 Exposure Response Date Recorded In the last 10 days, have yo u been in contact with someone who was confirmed or suspected to have Coronavirus/COVID-19? No / Unsure 10/20/2021 2:14 PM CDT documented as of this encounter Plan of Treatment Not on file documented as of this encounter Visit Diagnoses Not on filedocumented in this encounter Additional Health Concerns Assessment Noted Time PHQ-9 Depression Total Score: 0 10/21/19 22 2:21 PM CDT documented as of this encounter Care Teams Securities And Real Estate Director Relationship Specialty Start Date End Date Umberto Mauricio PCP - General Family Practice 04/29/19 Clinic - [facility] [id number] [place], [place] [address] [address] Assigned PCP 03/08/23 documented as of this encounter
--- OUTSIDE RECORDS SUMMARY | 2023-11-20 19:19 | XMS_ITS | Encounter Summary ---
Author Organization [facility] Address [address] [place] [address] Care Team Providers Care Eviscerator Name Role Phone Umberto Mauricio Primary Care Provider Asad Coreas MD Unavailable [phone] [facility] e Encounter Details Date Type Department Care Team (Late st Contact Info) Description 08/18/2021 MyC Medical Advice [facility] [id number] [place] [phone] Susie Osei LIBRARY SCIENCE PROFESSOR Social History Tobacco Use Types Packs/Day Years Used Date Smoking Tobacco: Every Day Cigarettes Smokeless Tobacco: Never Comments:30 yrs Alcohol Use Standard Drinks/Week Comments No 0 (1 standard drink = 0.6 oz pur e alcohol) Sex and Gender Information Value Date Recorded Sex Assigned at Not on file Gender Identity Not on file Sexual Orientation Not on file documented as of this encounter Plan of Treatment Not on file documented as of this encounter Visit Diagnoses Not on filedocumented in this encounter Care Teams Eviscerator Relationship Specialty Start Date End Date Umberto Mauricio PCP - General Family Practice 04/29/19 [place] [address] [place] [address] Assigned PCP 05/05/21 10/28/21 [facility] [address] [place] [address] Assigned PCP 03/08/23 documented as of this encounter
--- OUTSIDE RECORDS SUMMARY | 2023-11-20 19:19 | XMS_ITS | Encounter Summary ---
Author Organization [facility] Address [address] [place] [address] Care Team Providers Care Roof Painter Name Role Phone Umberto Mauricio Primary Care Provider Asad Coreas MD Unavailable [phone] [facility] Encounter Details Date Type Department Care Team (Late st Contact Info) Description 05/23/2021 Documentation Only INTERFACED REPORT Unknown, Provider Social History Tobacco Use Types Packs/Day Years Used Date Smoking Tobacco: Every Day Smokeless Tobacco: Never Alcohol Use Standard Drinks/Week Comments No 0 [...] suspected to have Coronavirus/COVID-19? No / Unsure 05/25/2021 12:39 PM CDT documented as of this encounter Plan of Treatment Not on file documented as of this encounter Visit Diagnoses Not on filedocumented in this encounter Additional Health Concerns Infection Onset Date Last Indicated Resolved Time Rule Out COVID-19 05/22/2021 05/22/2021 05/23/2021 12:28 AM CDT documented as of this encounter Care Teams Roof Painter Relationship Specialty Start Date End Date Umberto Mauricio PCP - General Family Practice 04/29/19 [place] [address] [place] [address] Assigned PCP 05/05/21 10/28/21 [facility] [address] [place] [address] Assigned PCP 03/08/23 documented as of this encounter
--- OUTSIDE RECORDS SUMMARY | 2023-11-20 19:19 | XMS_ITS | Encounter Summary ---
Author Organization [facility] Address [address] [place] [address] Care Team Providers Care Windows Server Support Technician Name Role Phone Umberto Mauricio Primary Care Provider [phone] Asad Coreas MD Unavailable [phone] Clinic - [facility] e Reason for Visit * Reason Onset Date Comments Call Back 08/24/2021 Pt would like to be seen for med check Encounter Details Date Type Department Care Team (Late st Contact Info) Description 08/24/2021 Telephone [facility] [id number] [place] [phone] [place] [address] [place] [address] Call Back (Pt would like to be seen for med check) Social History Tobacco Use Types Packs/Day Years Used Date Smoking Tobacco: Every Day Cigarettes Smokeless Tobacco: Never Comments:30 yrs Alcohol Use Standard Drinks/Week Comments No 0 (1 standard drink = 0.6 oz pur e alcohol) Sex and Gender Information Value Date Recorded Sex Assigned at Not on file Gender Identity Not on file Sexual Orientation Not on file documented as of this encounter Miscellaneous Notes * Telephone Encounter - Jaycee Kat - 08/24/2021 8:46 AM CDT Reason for call: Other Patient called regarding (reason for call): call back Additional comments: Patient is calling because she would like to be seen for a medication check with Dr Coreas. Patient needs to have a yearly review of medications. Please call patient if she can orcannot be added to the schedule. Phone number to reach patient: Home number on file [phone] (home) Best Time: Any time Can we leave a detailed message on this number? YES Travel screening: Not Applicable documented in this encounter Plan of Treatment Not on file documented as of this encounter Visit Diagnoses Not on filedocumented in this encounter Care Teams Windows Server Support Technician Relationship Specialty Start Date End Date Umberto Mauricio PCP - General Family Practice 04/29/19 [place] [address] [place] [address] Assigned PCP 05/05/21 10/28/21 [facility] [address] [place] [address] Assigned PCP 03/08/23 documented as of this encounter
--- OUTSIDE RECORDS SUMMARY | 2023-11-20 19:19 | XMS_ITS | Referral Summary ---
Author Organization [facility] Address [address] [place] [address] Care Team Providers Care Finish Specialist Name Role Phone Umberto Mauricio Primary Care Provider [phone] [facility] Unavailabl e Allergies No known active allergies Medications Medication Sig Dispensed Refills Start Date End Date Status ibuprofen (ADVIL/MOTRIN) 600 MG tablet Take 600 mg by mouth 3 times daily as needed (pain) Active blood glucose monitoring (NO BRAND SPECIFIED) meter device kit Use to test blood sugar as directed. Pt tests once monthly when she remembers. Unknown brand. Active acetaminophen (TYLENOL) 500 MG tablet Take 1,500 mg by mouth daily and 1500 mg once daily as needed for migraine prevention. Active albuterol (PROAIR HFA/PROVENTIL HFA/VENTOLIN HFA) 108 (90 Base) MCG/ACT inhalerIndications :COPD with chronic bronchitis (H) Inhale 2 puffs into the lungs every 4 hours as needed for wheezing (1st choice) 18 g 12/14/2022 Active ARIPiprazole (ABILIFY) 10 MG tabletIndications: Severe episode of recurrent major depressive disorder, with psychotic features (H) Take 1 tablet (10 mg) by mouth daily 60 tablet 12/15/2022 Active atorvastatin (LIPITOR) 40 MG tabletIndications: Hypercholesterolem ia Take 1 tablet (40 mg) by mouth every morning 60 tablet 12/14/2022 Active budesonide-formote rol (SYMBICORT) 160-4.5 MCG/ACT InhalerIndications :COPD with chronic bronchitis (H) Inhale 2 puffs into the lungs two times daily 10.2 g 12/14/2022 Active gabapentin (NEURONTIN) 600 MG tabletIndications: Severe episode of recurrent major depressive disorder, with psychotic features (H) Take 1 tablet (600 mg) by mouth 3 times daily 180 tablet 12/14/2022 Active ipratropium - albuterol 0.5 mg/2.5 mg/3 mL (DUONEB) 0.5-2.5 (3) MG/3ML neb solutionIndication s:COPD with chronic bronchitis (H) Take 1 vial (3 mLs) by nebulization 3 times daily 540 mL 12/14/2022 Active metFORMIN (GLUCOPHAGE) 500 MG tabletIndications: Type 2 diabetes mellitus without complication, without long-term current use of insulin (H) Take 2 tablets (1,000 mg) by mouth 2 times daily (with meals) (Morning and lunchtime) 240 tablet 12/14/2022 Active sertraline (ZOLOFT) 100 MG tabletIndications: Severe episode of recurrent major depressive disorder, with psychotic features (H) Take 1 tablet (100 mg) by mouth daily 60 tablet 12/15/2022 Active SUMAtriptan (IMITREX) 100 MG tabletIndications: Intractable chronic migraine without aura and without status migrainosus Take 1 tablet (100 mg) by mouth at onset of headache for migraine -may repeat once in 2 hours. Max 200 mg in 24 hours. 60 tablet 12/14/2022 Active nicotine (NICORETTE) 2 MG gumIndications:Tob acco use disorder Place 1 each (2 mg) inside cheek every hour as needed for smoking cessation 240 each 12/14/2022 Active nicotine (NICODERM CQ) 21 MG/24HR 24 hr patchIndications:T obacco use disorder Place 1 patch onto the skin daily 60 patch 12/15/2022 Active cyclobenzaprine (FLEXERIL) 10 MG tabletIndications: Intractable chronic migraine without aura and without status migrainosus Take 1 tablet (10 mg) by mouth 2 times daily as needed for muscle spasms 45 tablet 1 12/15/2022 Active Active Problems Problem Noted Date Diagnosed Date Major depressive disorder 12/12/2022 Paranoia 12/07/2022 Shortness of breath 04/30/2019 Mixed incontinence 03/02/2016 Chronic constipation 08/28/2015 COPD with chronic bronchitis 08/28/2015 BMI 33.0-33.9,adult 04/23/2014 Asthma, moderate persistent 02/09/2014 COPD (chronic obstructive pulmonary disease) Diabetic neuropathy 05/01/2013 Type 2 diabetes mellitus 04/06/2011 Hypercholesterolemia 04/05/2011 Severe recurrent major depressive disorder with psychosis 03/29/2011 Tobacco use disorder 03/12/2008 Immunizations Name Administration Dates Next Due COVID-19 MONOVALENT 12+ (Pfizer) 08/24/2020,07/14 Flu, Unspecified 12/14/2017, 7,09/25/2015,2014,11/24/2012,01/19/2011,01/10/2007,1 02/13/2001 HepB 09/25/2015,11/13/2012 HepB, Unspecified 09/25/2015,11/13/2012 Hepatitis B, Adult 07/11/2016,09/25/2015, 013 Influenza (IIV3) PF 02/21/2012,01/19/2011,2006 Influenza Vaccine >6 months,quad, PF ,11/28/2018,12/14/2017,2016,09/25/2015,01/06/2015 Influenza Vaccine, 6+MO IM (QUADRIVALENT W/PRESERVATIVES) 09/25/2015 Influenza, seasonal, injectable, PF 01/19/2011,0 03/29/2006 Pneumococcal 20 valent Conju gate (Prevnar 20) 08/21/2021 Pneumococcal 23 valent 01/21/2013,02/21/2012 TDAP (Adacel,Boostrix) 10/05/2021 TDAP Vaccine (Boostrix) 02/21/2012 Td (Adult), Adsorbed 10/28/2002,02/11/1995 Zoster recombinant adjuvante d (SHINGRIX) 08/21/2021,05/23/2021 Social History Tobacco Use Types Packs/Day Years [...] 10/20/2021 How often do you attend chur or quaker services? Patient declined 10/20/2021 Do you belong to any clubs o r organizations such as faith groups, unions, fraternal or athletic groups, or school groups? Patient declined 10/20/2021 Attends Club or Organization Meetings Not on smitha e 10/20/2021 Are you , , di vorced, , never , or living with a partner? 10/20/2021 AUDIT-C Answer Date Recorded Q1: How often do you have a drink containing alc ohol? 2-4 times a month 12/12/2022 Q2: How many drinks containi ng alcohol do you have on a typical day when you are drinking? 3 or 4 12/12/2022 Q3: How often do you have si x or more drinks on one occasion? Never 12/12/2022 Overall Financial Resource Strain (CARDIA) Answe r Date Recorded How hard is it for you to pa y for the very basics like food, housing, medical care, and heating? Somewhat hard 10/20/2021 PHQ-2 Answer Date Recorded PHQ-2 Score 0 10/20/2021 [facility] - Occupational Stress [...] things needed for daily living? No 10/20/2021 Adolescent Education Answer Date Record ed Getting School Help Needed Not on file 11/27 Sex and Gender Information Value Date Recorded Sex Assigned at Not on file Gender Identity Not on file Sexual Orientation Not on file Last Filed Vital Signs Vital Sign Reading Time Taken Comments Blood Pressure 119/69 12/15/2022 5:00 AM CDT Pulse 84 12/15/2022 5:00 AM CDT Temperature 36.8 ??C (98.2 ??F) 12/15/2022 5:00 AM CD T Respiratory Rate 16 12/15/2022 5:00 AM CDT Oxygen Saturation 92% 12/15/2022 5:00 AM CDT Inhaled Oxygen Concentration - - Weight 82.6 kg (182 lb) 12/12/2022 1:41 PM CDT Height 162.6 cm (5' 4) 12/12/2022 1:41 PM CDT Body Mass Index 31.24 12/12/2022 1:41 PM CDT Plan of Treatment Not on file Medical Devices Implanted Type Area Ink Jet Operator Device Identifier Shelf Expiration Date Model / Serial / Lot Mesh Sling Single Incision Altis [id number] Implanted:Qty: 1 on 01/24/2016 by Magnus Denis MD at [facility] Mesh N/A: Vagina COLOPLAST 09/11/2018 [id number] / [id number] / [id number] Procedures Procedure Name Priority Date/Time Associated Diagnosis Comments HEMOGLOBIN A1C Routine 12/12/2022 2:24 PM CDT BASIC METABOLIC PANEL STAT 12/07/2022 1:[address] CHEST PE ABDOMEN PELVIS W CONTRAST STAT 05/23/2021 12:00 AM CDT from Last 3 Months or Most Recently Relevant to Health Maintenance Results * (ABNORMAL) Hemoglobin A1c (12/12/2022 2:24 PM CDT) [facility] Estimated Average Glucose 154 mg/dL 12/12/2022 2:58 PM CDT [facility] Hemoglobin A1C 7.0(H) <5.7 % 12/12/2022 2:58 PM CDT [facility] Comment: Normal <5.7% Prediabetes 5.7-6.4% ?? Diabetes 6.5% or higher Note: Adopted from ADA consensus guidelines. Blood STRUCTURE OF RIGHT UPPER LIMB / Unknown Venipuncture / Unknown 12/12/2022 2:24 PM CDT 12/12/2022 2:28 PM CDT Alfreda Salcido ENGRAVER TENDER LAB - BLOOD ORDERABL ES [facility] [address] [place] [id number], [facility] [phone] * (ABNORMAL) Basic metabolic panel (12/07/2022 1:58 PM CDT) [facility] Sodium 135 135 - 145 mmol/L 12/07/2022 2:51 PM [facility]T [facility] Comment:Reference intervals for this test were updated on 11/07/2022 to more accurately reflect our healthy population. There may be differences in the flagging of prior results with similar values performed with this method. Interpretation of those prior results can be made in the context of the updated reference intervals. Potassium 4.4 3.4 - 5.3 mmol/L 12/07/2022 2:51 PM CDT LAB[facility]ORY Chloride 99 98 - 107 mmol/L 12/07/2022 2:51 PM CDT [facility] Carbon Dioxide (CO2) 25 22 - 29 mmol/L 12/07/2022 2:51 PM CDT [facility] Anion Gap 11 7 - 15 mmol/L 12/07/2022 2:51 PM [facility] Urea Nitrogen 10.5 6.0 - 20.0 mg/dL 12/07/2022 2:51 PM [facility]T [facility] Creatinine 0.72 0.51 - 0.95 mg/dL 12/07/2022 2:51 PM CDT [facility] GFR Estimate >90 >60 mL/min/1. 73m2 12/07/2022 2:51 PM CDT [facility] Calcium 9.2 8.6 - 10.0 mg/dL 12/07/2022 2:51 PM [facility] Glucose 186(H) 70 - 99 mg/dL 12/07/2022 2:51 PM CDT [facility] Blood STRUCTURE OF RIGHT UPPER LIMB / Unknown Venipuncture / Unknown 12/07/2022 1:58 PM CDT 12/07/2022 2:08 PM CDT Jesus Soliz MD LAB - BLOOD ORDERABL ES LABORATORY [facility] Acute Care Lab [address] floor, [address] [place] [address], [facility] [phone] * CT Chest (PE) Abdomen Pelvis w Contrast (05/23/2021 12:00 AM CDT) Anatomical Region Laterality Modality Chest, SUBRAD CT BODY, UMP CT CHEST, RAD CT Computed Tomography 05/22/2021 11:5 9 PM CDT Impressions 05/23/2021 1:14 AM CDT IMPRESSION: 1. Nondisplaced recent-appearing fracture of the lateral aspect of the right seventh rib. 2. No other acute abnormality identified in the chest, abdomen or pelvis. 3. No visualized pulmonary embolus. 4. Colonic diverticulosis without evidence of diverticulitis. Narrative 05/23/2021 1:14 AM CDT EXAM: CT CHEST WITH CONTRAST - PULMONARY EMBOLISM PROTOCOL CT ABDOMEN AND PELVIS WITH CONTRAST LOCATION: [facility] DATE/TIME: 05/22/2021 11:59 PM INDICATION: Pleuritic pain. Right flank pain. Recent rib fracture and pneumonia. COMPARISON: 04/06/2021 and 04/29/2019 - CT chest. 11/30/2017 - CT abdomen and pelvis. TECHNIQUE: CT angiogram chest and routine CT abdomen pelvis with IV contrast. Pulmonary arterial phase through the chest and venous phase through the abdomen and pelvis. Dose reduction techniques were used. CONTRAST: 90 mL Isovue-370. FINDINGS: ANGIOGRAM CHEST: No visualized pulmonary embolus. The thoracic aorta is normal in caliber without dissection. Atherosclerotic calcification in the thoracic aorta. LUNGS AND PLEURA: Mild emphysematous changes in the lungs. 0.5 cm nodule in the central aspect of the right lung apex (series 7 image 42). 0.4 cm subpleural nodule in the posterior aspect of the right upper lobe (series 7 image 48). These nodules were also present on 04/29/2019 and are therefore consistent with benign etiology. A few hazy and curvilinear opacities in the dependent aspects of bilateral lung bases, most likely representing atelectasis and/or scarring. MEDIASTINUM/AXILLAE: Unremarkable. CORONARY ARTERY CALCIFICATION: Absent. HEPATOBILIARY: Small low-attenuation focus in the right lobe of the liver, too small to characterize. Prior cholecystectomy. SPLEEN: Mild splenomegaly. The spleen measures 14.5 cm in craniocaudal dimension. PANCREAS: Unremarkable. ADRENAL GLANDS: Unremarkable. KIDNEYS/BLADDER: Unremarkable. BOWEL: Several colonic diverticula are present without evidence of diverticulitis. The appendix is not visualized. No convincing bowel wall thickening, pneumatosis or free intraperitoneal gas. LYMPH NODES: Unremarkable. PELVIC ORGANS: No acute findings. MUSCULOSKELETAL: Nondisplaced recent-appearing fracture of the lateral aspect of the right seventh rib. Nonacute fracture of the lateral aspect of the right eighth rib. OTHER: None. Procedure Note Julian Mcdonald MD - 05/23/2021 EXAM: CT CHEST WITH CONTRAST - PULMONARY EMBOLISM PROTOCOL CT ABDOMEN AND PELVIS WITH CONTRAST LOCATION: [facility] DATE/TIME: 05/22/2021 11:59 PM INDICATION: Pleuritic pain. Right flank pain. Recent rib fracture andpneumonia. COMPARISON: 04/06/2021 and 04/29/2019 - CT chest. 11/30/2017 - CT abdomen and pelvis. TECHNIQUE: CT angiogram chest and routine CT abdomen pelvis with IVcontrast. Pulmonary arterial phase through the chest and venous phasethrough the abdomen and pelvis. Dose reduction techniques were used. CONTRAST: 90 mL Isovue-370. FINDINGS: ANGIOGRAM CHEST: No visualized pulmonary embolus. The thoracic aorta isnormal in caliber without dissection. Atherosclerotic calcification in thethoracic aorta. LUNGS AND PLEURA: Mild emphysematous changes in the lungs. 0.5 cm nodulein the central aspect of the right lung apex (series 7 image 42). 0.4 cmsubpleural nodule in the posterior aspect of the right upper lobe (series7 image 48). These nodules were also present on 04/29/2019 and are therefore consistent with benignetiology. A few hazy and curvilinear opacities in the dependent aspects ofbilateral lung bases, most likely representing atelectasis and/orscarring. MEDIASTINUM/AXILLAE: Unremarkable. CORONARY ARTERY CALCIFICATION: Absent. HEPATOBILIARY: Small low-attenuation focus in the right lobe of the liver,too small to characterize. Prior cholecystectomy. SPLEEN: Mild splenomegaly. The spleen measures 14.5 cm in craniocaudaldimension. PANCREAS: Unremarkable. ADRENAL GLANDS: Unremarkable. KIDNEYS/BLADDER: Unremarkable. BOWEL: Several colonic diverticula are present without evidence ofdiverticulitis. The appendix is not visualized. No convincing bowel wallthickening, pneumatosis or free intraperitoneal gas. LYMPH NODES: Unremarkable. PELVIC ORGANS: No acute findings. MUSCULOSKELETAL: Nondisplaced recent-appearing fracture of the lateralaspect of the right seventh rib. Nonacute fracture of the lateral aspectof the right eighth rib. OTHER: None. IMPRESSION: 1. Nondisplaced recent-appearing fracture of the lateral aspect of theright seventh rib. 2. No other acute abnormality identified in the chest, abdomen orpelvis. 3. No visualized pulmonary embolus. 4. Colonic diverticulosis without evidence of diverticulitis. Aamir Bethea MD IMG CT ORDERABLES from Last 3 Months or Most Recently Relevant to Health Maintenance Advance Directives For more information, please contact: [phone] * Full Code (Latest Code Status on File) Date Activated Date Inactivated Comments 12/12/2022 12:49 PM 12/15/2022 1:09 PM All basic and advanced life-sustaining interventions are performed as appropriate Question Answer Comments Code status determined by: Unable to dis cuss and no AD/POLST on file; continue PREVIOUSLY ORDERED code status * Full Code Date Activated Date Inactivated Comments 04/30/2019 1:23 AM 05/01/2019 1:10 PM Question Answer Comments Code status determined by: Discussion with dell nt/legal decision maker Care Teams Finish Specialist Relationship Specialty Start Date End Date Umberto Mauricio PCP - General Family Practice 04/29/19 [facility] [address] [place] [address] Assigned PCP 03/08/23
--- OUTSIDE RECORDS SUMMARY | 2023-11-20 19:19 | XMS_ITS | Encounter Summary ---
Author Organization [facility] Address [address] [place] [address] Care Team Providers Care Latex Fashions Designer Name Role Phone Umberto Mauricio Primary Care Provider Asad Coreas MD Unavailable [phone] [facility] e Encounter Details Date Type Department Care Team (Late st Contact Info) Description 08/24/2021 MyC Medical Advice [facility] [id number] [place] [id number] Joseline Steiner Social History Tobacco Use Types Packs/Day Years [...] on filedocumented in this encounter Care Teams Latex Fashions Designer Relationship Specialty Start Date End Date Umberto Mauricio PCP - General Family Practice 04/29/19 [place] [address] [place] [address] Assigned PCP 05/05/21 10/28/21 [facility] [address] [place] [address] Assigned PCP 03/08/23 documented as of this encounter
--- OUTSIDE RECORDS SUMMARY | 2023-11-20 19:19 | XMS_ITS | Clinical Summary ---
Author Organization [facility] Address [address] [place] [address] Care Team Providers Care Planning Advisor Name Role Phone Umberto Mauricio Primary Care Provider [facility] Unavailabl e Allergies No known active allergies [...] 10/28/2002,02/11/1995 Zoster recombinant adjuvante d (SHINGRIX) 08/21/2021,05/23/2021 Family History Medical History Relation Comments Bipolar Disorder Brother Schizophrenia Brother Other Cancer Father Diabetes Mother Hyperlipidemia Mother Hypertension Mother Relation Status Comments Brother Father Mother Social History Tobacco Use Types Packs/Day Years [...] often do you attend chur ch or latter day services? Patient declined 10/20/2021 Do you belong to any clubs o r organizations such as scientology groups, unions, fraternal or athletic groups, or [...] Answer Date Recorded PHQ-2 Score 0 10/20/2021 [facility] - Occupational Stress Questionnaire Answer Date Recorded [...] 12/12/2022 1:41 PM CDT Plan of Treatment Health Maintenance Due Date Last Done Comments ADVANCE CARE PLANNING 1969 ANNUAL REVIEW OF HM ORDERS 1969 COPD ACTION PLAN 1969 CT COLONOGRAPHY 1969 DEPRESSION ACTION PLAN 1969 DIABETIC FOOT EXAM 1969 EYE EXAM 1969 FIT 1969 FLEX SIG 1969 LIPID 1969 MICROALBUMIN 1969 SPIROMETRY 1969 sDNA (Cologuard) 1969 COLONOSCOPY 08/15/1979 COLORECTAL CANCER SCREENING 08/15/1979 HIV SCREENING 1984 DEXA 08/15/1987 HEPATITIS C SCREENING 08/15/1987 PAP 1990 YEARLY PREVENTIVE VISIT 03/29/2012 03/29/2011, 03/12 PHQ-9 04/19/2022 10/20/2021 LUNG CANCER SCREENING 05/23/2022 05/23/2021 , 04/06/2021, 08/06/2019, Additional history exists NICOTINE/TOBACCO CESSATION COUNSELING Q 1 YR 05/25/2022 05/25/2021 MAMMO SCREENING 08/03/2022 08/03/2020, 05/0 04/2012, 03/29/2011 A1C 03/14/2023 12/12/2022, 04/30/2019 COVID-19 Vaccine ( season) 2023 11/08/2022, 08/24/2020, 08/03/2020 INFLUENZA VACCINE (#1) 2023 , 01/08/2022, 11/28/2019, Additional history exists BMP 12/08/2023 12/07/2022, 05/13, 04/30/2019, Additional history exists DTAP/TDAP/TD IMMUNIZATION (3 - Td or Tdap) 10/06/2031 10/05/2021, 02/21/2012, 10/28/2002, Additional history exists RSV VACCINE (1 - 1-dose 75+ series) 2044 HEPATITIS B IMMUNIZATION Completed 017, 09/25/2015, 09/25/2015, Additional history exists Pneumococcal Vaccine: Pediatrics (0 to 5 Years) and At-Risk Patients (6 to 64 Years) Completed 08/21/2021, 01/21/2013, 02/21/2012 ZOSTER IMMUNIZATION Completed 08/21/2021, 2 HPV IMMUNIZATION Aged Out No longer e ligible based on patient's age to complete this topic MENINGITIS IMMUNIZATION Aged Out No l onger eligible based on patient's age to complete this topic RSV MONOCLONAL ANTIBODY Aged Out No l onger eligible based on patient's age to complete this topic Medical Devices Implanted Type Area Wincher Device Identifier Shelf Expiration Date Model / Serial / Lot Mesh Sling Single Incision Altis [id number] Implanted:Qty: 1 on 01/24/2016 by Magnus Denis MD at [facility] Mesh N/A: Vagina COLOPLAST 09/11/2018 [id number] / [id number] / [id number] Procedures Procedure Name Priority Date/Time Associated Diagnosis Comments HEMOGLOBIN A1C Routine 12/12/2022 2:24 PM CDT BASIC METABOLIC PANEL STAT 12/07/2022 1:[address] CHEST PE ABDOMEN PELVIS W CONTRAST STAT 05/23/2021 12:00 AM CDT from Last 3 Months or Most Recently Relevant to Health Maintenance Results * (ABNORMAL) Hemoglobin A1c (12/12/2022 2:24 PM CDT) [facility] Estimated Average Glucose 154 mg/dL 12/12/2022 2:58 PM CDT [facility] Hemoglobin A1C 7.0(H) <5.7 % 12/12/2022 2:58 PM CDT [facility] Comment: Normal <5.7% Prediabetes 5.7-6.4% ?? Diabetes 6.5% or higher Note: Adopted from ADA consensus guidelines. Blood STRUCTURE OF RIGHT UPPER LIMB / Unknown Venipuncture / Unknown 12/12/2022 2:24 PM CDT 12/12/2022 2:28 PM CDT Alfreda Salcido CNP LAB - BLOOD ORDERABL ES [facility] Acute Care Lab [address] [place] [phone], [facility] [phone] * (ABNORMAL) Basic metabolic panel (12/07/2022 1:58 PM CDT) [facility] Sodium 135 135 - 145 mmol/L 12/07/2022 [...] MD LAB - BLOOD ORDERABL ES LABORATORY [facility] Acute Care Lab [address] 1[address] floor, [address] [place] [address], [facility] [phone] * CT Chest (PE) Abdomen Pelvis w [...] CT ABDOMEN AND PELVIS WITH CONTRAST LOCATION: [facility] DATE/TIME: 05/22/2021 11:59 PM INDICATION: Pleuritic pain. [...] CT ABDOMEN AND PELVIS WITH CONTRAST LOCATION: [facility] DATE/TIME: 05/22/2021 11:59 PM INDICATION: Pleuritic pain. [...] Colonic diverticulosis without evidence of diverticulitis. Aamir TORIBIO CT ORDERABLES from Last 3 Months or Most Recently Relevant to Health Maintenance Advance Directives For more information, please contact: [phone] * Full Code (Latest Code Status on [...] with dell nt/legal decision maker Care Teams Planning Advisor Relationship Specialty Start Date End Date Umberto Mauricio PCP - General Family Practice 04/29/19 [facility] [address] [place] [address] Assigned PCP 03/08/23
--- OUTSIDE RECORDS SUMMARY | 2023-11-20 19:19 | XMS_ITS | Encounter Summary ---
Author Organization [place] Address [address] [place] [address] Care Team Providers Care Divisional Merchandising Manager Name Role Phone Umberto Mauricio Primary Care Provider [phone] Asad Coreas MD Unavailable [phone] [facility] e Encounter Details Date Type Department Care Team (Late st Contact Info) Description 05/26/2021 MyC Medical Advice [facility] [address] [place] [address] [place] [address] [place] [address] Social History Tobacco Use Types Packs/Day Years [...] on filedocumented in this encounter Care Teams Divisional Merchandising Manager Relationship Specialty Start Date End Date Umberto Mauricio PCP - General Family Practice 04/29/19 [place] [address] [place] [address] Assigned PCP 05/05/21 10/28/21 [facility] [address] [place] [address] Assigned PCP 03/08/23 documented as of this encounter
--- OUTSIDE RECORDS SUMMARY | 2023-11-20 19:20 | XMS_ITS | Clinical Summary ---
Author Organization [facility] Address [address] [place] [address] Care Team Providers Care Mobile Phone Salesperson Name Role Phone Jessica Rivas MD Primary Care Provider [phone] Source Comments You are receiving this document as you are listed as the primary care provider,follow-up provider, or the patient has been referred to you for consultation.This is in compliance with the Medicare and[facility] EHR Incentive Program,which states Providers who transition their patient to another setting of careor provider of care or refers their patient to another provider of care shouldprovide summary care record for each transition of care or referral. [facility] Allerg[facility] No known active allergies Medications Medication Sig Dispensed Refills Start Date End Date Status blood glucose calibration (ONE TOUCH NORMAL CONTROL) NORMAL liquidIndications:D iabetes mellitus type II (HRC) Use with new strips and prn. Exp 90 days after opening. 1 Each 11 05/03/2011 Active lancets (ONE TOUCH DELICA LANCETS)Indications :Diabetes mellitus, type 2 (HRC) Use once daily as directed. Pharmacy dispense brand based on insurance. 100 Each 3 04/25/2013 Active ONE TOUCH ULTRA TEST strip TEST ONCE DAILY 100 Each 1 09/01/2014 Active MetFORMIN (AKA FORTAMET) 1000 MG ER tabletIndications:D iabetes mellitus, type 2 (HRC) TAKE ONE TABLET BY MOUTH ONCE DAILY WITH BREAKFAST 30 Tab 0 08/12/2015 Active Additional Information Patient taking differently: 2,000 mg, Reported on 06/26/2019 atorvastatin (AKA LIPITOR) 40 MG tabletIndications:D iabetes mellitus, type 2 (HRC) TAKE ONE TABLET BY MOUTH ONCE DAILY 30 Tab 0 08/12/2015 Active gabapentin (NEURONTIN) 600 MG tablet Take 600 mg by mouth. 03/03/2018 Active SUMAtriptan (IMITREX) 100 MG tablet Take 100 mg by mouth. 11/21/2017 Active budesonide-formoter ol (SYMBICORT) 80-4.5 MCG/ACT inhalerIndications: Wheezing Inhale 2 Puffs two times a day. Rinse mouth/gargle after use. 30.6 g 11 04/21/2019 Active ALBUterol sulfate HFA (VENTOLIN HFA) 108 (90 Base) MCG/ACT inhalerIndications: Wheezing Inhale 1-2 Puffs every 6 hours as needed for Wheezing. 1 Inhaler 11 04/21/2019 Active escitalopram (LEXAPRO) 10 MG tabletIndications:P ersistent depressive disorder (HRC),Anxiety (HRC) Take 1 Tablet by mouth daily. 90 Tablet 06/26/2019 Active risperiDONE (RISPERDAL) 4 MG tabletIndications:P sychosis, unspecified psychosis type (HRC) Take 1 Tablet by mouth daily. 90 Tablet 06/26/2019 Active Additional Information Patient not taking.Reported on 04/06/2021 varenicline (CHANTIX) 1 MG tablet Take 1 mg by mouth. 04/01/2019 Activ e buPROPion (WELLBUTRIN XL) 150 MG 24 hour release tablet Take 1 Tablet by mouth every morning. 90 Tablet 04/15/2020 Active Additional Information Patient not taking.Reported on 04/06/2021 naltrexone (REVIA) 50 MG tablet Take 0.25-0.5 Tablets by mouth daily. 45 Tablet 04/15/2020 Active guaiFENesin-codeine (ROBITUSSINAC) 100-10 MG/5ML solution Take 10 mL by mouth every 4 hours as needed. 118 mL 04/06/2021 Active doxycycline hyclate (VIBRA-TABS) 100 MG tabletIndications:C ough Take 1 Tablet (100 mg) by mouth two times a day. Pharmacy may substitute hyclate or monohydrate tab or capsule based on insurance. 20 Tablet 04/06/2021 Active ipratropium-albuter ol (DUONEB) 0.5-2.5 (3) mg/3ml nebulizer solution Inhale 3 mL every 6 hours as needed for Wheezing. 120 mL 3 04/06/2021 Active Active Problems Problem Noted Date Diagnosed Date Tobacco dependence 04/23/2014 BMI 33.0-33.9,adult 04/23/2014 Constipation 04/23/2014 Overview (11/12/2014): Epic Asthma, moderate persistent 02/09/2014 COPD (chronic obstructive pulmonary disease) Diabetic neuropathy 05/01/2013 Type 2 diabetes mellitus wit hout complication, without long-term current use of insulin 04/06/2011 Hypercholesterolemia 04/05/2011 Depression, major, recurrent, severe with psycho sis 03/29/2011 Tobacco use disorder 03/12/2008 Mixed incontinence urge and stress (male)(female ) 03/12/2008 Immunizations Name Administration Dates Next Due Flu Vac (3+ yrs) 02/21/2012,01/19/2011, 7 Flu Vac Preserv Free (3+yrs) 01/19/2011,03/29/19 07 HepB Adult (Engerix-B, 20+ y rs, 3 dose series) 07/11/2016,09/25/2015,11/13/2012 HepB, Unspecified Formulation 09/25/2015, 013 Influenza ([place] Only) (Flul aval Quad 0.5, 3+ yrs) 09/25/2015 Influenza IIV4 (Quadrivalent ) 0.5mL (24705) 11/28/2018,12/14/2017,11/13/2016,2015,01/06/2015 Influenza, Unspecified Formulation 11/24/2012, PPSV23 (Pneumovax) 01/14/2013,02/21/2012 Td 10/28/2002,02/11/1995 Tdap 02/21/2012 Varicella 03/22/1998(Deferred: Immune by [facility]) Family History Medical History Relation Name Comments Alcohol/Drug Abuse Father Cancer, Other Father pancreati c Ca at 53 Diabetes, Type II Mother Hypertension Mother Inflammatory Bowel Disease Mother Migraines Mother Obesity Mother Alcohol/Drug Abuse Brother 2 Obesity Maternal Grandmother Amblyopia/Strabismus Other 1 cousin Anxiety Other 2 siblings Depression Other 3 siblings Migraines Other 4 self Other Other 5 family Osteoporosis Paternal Grandmother Other Sister 3 RA Cancer, Breast Negative Family History Cancer, Ovary Negative Family History Relation Name Status Comments Father (Age 53) Mother Alive Brother 1 Alive Brother 2 Daughter Alive Maternal Grandfather Maternal Grandmother Other 1 Other 2 Other 3 Other 4 Other 5 Paternal Grandfather Paternal Grandmother Sister 1 Alive Sister 2 Alive Sister 3 Son Alive Social History Tobacco Use Types Packs/Day Years Used Date Smoking Tobacco: Former Cigarettes 1 30 Smokeless Tobacco: Never Tobacco Cessation:Ready to Q uit: Yes Alcohol Use Standard Drinks/Week Comments No 0 (1 standard drink = 0.6 oz pur e alcohol) Sex and Gender Information Value Date Recorded Sex Assigned at Not on file Gender Identity Not on file Sexual Orientation Not on file Last Filed Vital Signs Vital Sign Reading Time Taken Comments Blood Pressure 124/85 04/06/2021 1:58 PM WARHEAD MAINTENANCE SPECIALIST Pulse 106 04/06/2021 1:58 PM WARHEAD MAINTENANCE SPECIALIST Temperature 36.8 ??C (98.2 ??F) 04/06/2021 1:58 PM CS T Respiratory Rate 18 04/06/2021 1:58 PM WARHEAD MAINTENANCE SPECIALIST Oxygen Saturation 96% 04/06/2021 1:58 PM WARHEAD MAINTENANCE SPECIALIST Inhaled Oxygen Concentration - - Weight 100.2 kg (221 lb) 04/15/2020 7:41 AM WARHEAD MAINTENANCE SPECIALIST Height 162.6 cm (5' 4) 04/15/2020 7:41 AM WARHEAD MAINTENANCE SPECIALIST Body Mass Index 37.93 04/15/2020 7:41 AM WARHEAD MAINTENANCE SPECIALIST Plan of Treatment Health Maintenance Due Date Last Done Comments Cervical Cancer Screening Due 1969 Colon Cancer Screening Plan Due 1969 Diabetes: Eye Exam 1969 HIV Screening (Preventive Services) 1985 Adult Preventive Visit 03/29/2012 03/29/2011, 2008 Mammogram 06/14/2013 06/14/2012, 03/29/2011 Pneumococcal (2 - PCV) 01/14/2014 01/14/2013, 2012 Diabetes: Foot Exam 04/24/2014 04/24/2013 ( Completed), 02/19/2012 Diabetes: Urine Microalbumin 10/09/2014 10/09/2013, 06/14/2012, 05/03/2011 Diabetes: Lipid Panel 02/25/2019 02/25/2014 , 10/09/2013, 04/22/2013, Additional history exists Zoster/Shingles (1 of 2) 08/15/2019 Diabetes: HGBA1C 12/25/2020 06/24/2020, , 01/22/2019, Additional history exists DTaP/Tdap/Td (2 - Tdap) 02/20/2022 02/20/19 13, 10/28/2002, 02/11/1995 Diabetes: Creatinine 04/06/2022 04/06/2021, 02/25/2014, 04/22/2013, Additional history exists COVID-19 Vaccine ( season) 2023 08/24/2020, 08/03/2020 Influenza (#1) 2023 11/28/2019, 11/12, 12/14/2017, Additional history exists Hep C Screening (Preventive Services) Completed 04/23/2014 HepB Completed 07/11/2016, 09/12, 09/25/2015, Additional history exists HepA Aged Out No longer eligi ble based on patient's age to complete this topic Hib Aged Out No longer eligi ble based on patient's age to complete this topic IPV (Polio) Aged Out No longer eligi ble based on patient's age to complete this topic RSV Aged Out No longer eligi ble based on patient's age to complete this topic MCV4 Aged Out No longer eligi ble based on patient's age to complete this topic Procedures Procedure Name Priority Date/Time Associated Diagnosis Comments BASIC METABOLIC PANEL STAT 04/06/2021 2:43 PM WARHEAD MAINTENANCE SPECIALIST SOB (shortness of breath) Cough HEPATITIS C ANTIBODY, WITH REFLEX Routine 04/23/2014 3:01 PM CDT RUQ pain LIPID PANEL & DIRECT LDL (IF NEEDED) Routine 02/25/2014 8:53 AM WARHEAD MAINTENANCE SPECIALIST Hypercholesterolemia HGB A1C Routine 02/25/2014 8:53 AM WARHEAD MAINTENANCE SPECIALIST Type II or unspecified type diabetes mellitus without mention of complication, not stated as uncontrolled ALBUMIN/CREAT RATIO Routine 10/09/2013 7:37 AM CDT Diabetes mellitus, type 2 MM MAMMOGRAM SCREENING BILAT W CAD Routine 06/14/2012 7:57 AM CDT from Last 3 Months or Most Recently Relevant to Health Maintenance Results * (ABNORMAL) Basic Metabolic Panel (04/06/2021 2:43 PM WARHEAD MAINTENANCE SPECIALIST) Sodium 145 136 - 145 mmol/L 04/06/2021 3:24 PM [facility] Potassium 4.0 3.5 - 5.1 mmol/L 04/06/2021 3:24 PM [facility] Chloride 109 98 - 109 mmol/L 04/06/2021 3:24 PM [facility] CO2 25 20 - 29 mmol/L 04/06/2021 3:24 PM [facility] Anion Gap 11 7 - 16 mmol/L 04/06/2021 3:24 PM [facility] Calcium 9.3 8.4 - 10.4 mg/dL 04/06/2021 3:24 PM [facility] BUN 8 7 - 26 mg/dL 04/06/2021 3:24 PM [facility] Creatinine 0.70 0.55 - 1.02 mg/dL 04/06/2021 3:24 PM [facility] GFR, Estimated >60 >60 mL/min/1.7 3m2 04/06/2021 3:24 PM [facility] Glucose 137(H) 70 - 100 mg/dL 04/06/2021 3:24 PM [facility] Comment:The given reference range is for the fasting state. Non-fasting reference range for glucose is 70 - 180 mg/dL. Hours Fasting Unknown 04/06/2021 3:24 PM [facility] Blood Venipuncture / Unknown 04/06/2021 2:43 PM WARHEAD MAINTENANCE SPECIALIST 04/06/2021 2:45 PM WARHEAD MAINTENANCE SPECIALIST Nitza Mccarty MD LAB_1 [facility] [address] [place] [address], [facility] [phone] * HEPATITIS C ANTIBODY, WITH REFLEX (04/23/2014 3:01 PM CDT) Anti-HCV Negative (Non Reactive) NEGNR [facility] Comment:Does Not Rule Out In fection with HCV 04/23/2014 3:01 PM CDT 04/23/2014 3:03 PM CDT Narrative [facility] - 04/24/2014 11:29 AM CDT Performed at [facility], [address] [place] [address] ??[id number] Juvenal Cabrera MD LAB_1 Performing Organization Address [facility] de Phone Number [facility] [phone] * (ABNORMAL) LIPID PANEL AND DIRECT LDL(IF NEEDED) (02/25/2014 8:53 AM WARHEAD MAINTENANCE SPECIALIST) Hours Fasting 12 hours [facility] Cholesterol 249(H) 0 - 199 mg/dl [facility] Triglyceride 120 0 - 149 mg/dl [facility] HDL 56 >40 mg/dl [facility] LDL, Calc. 169(H) 0 - 129 mg/dl [facility] Non HDL Chol, Calc 193 mg/dl [facility] 02/25/2014 8:53 AM WARHEAD MAINTENANCE SPECIALIST 02/25/2014 9:08 AM WARHEAD MAINTENANCE SPECIALIST Narrative [facility] - 02/25/2014 4:50 PM WARHEAD MAINTENANCE SPECIALIST Performed at [facility], [address] [place] [address] ??[phone] Jessica Rivas MD LAB_1 Performing Organization Address [facility] de Phone Number [facility] [phone] * (ABNORMAL) HGB A1C (02/25/2014 8:53 AM WARHEAD MAINTENANCE SPECIALIST) Hgb A1c 6.2(H) 4.3 - 5.6 % [facility] Comment: See (NOTE) For patients not previously diagnosed with diabetes: 5.7-6.4%: Increased risk for diabetes (prediabetic) 6.5% and greater: Diagnostic for diabetes ?? For diabetic patients: <8.0%: Goal of therapy for ages 18-75 - physicians may recommend a higher or lower goal for specific individuals 02/25/2014 8:53 AM WARHEAD MAINTENANCE SPECIALIST 02/25/2014 9:08 AM WARHEAD MAINTENANCE SPECIALIST Narrative [facility] - 02/25/2014 3:40 PM WARHEAD MAINTENANCE SPECIALIST Performed at [facility], [address] [place] [address] ??[phone] Jessica Rivas MD LAB_1 Performing Organization Address [facility] de Phone Number [facility] [phone] * MICROALB/CREAT RATIO (10/09/2013 7:37 AM CDT) Albumin, Urine, Random <0.5 mg/dl [facility] Creatinine,Ur Random 131.3 mg/dl [facility] Alb/Creat Ratio, Urine, Random <4 <30 mg/g creatinine [facility] Urine specimen (specimen) 10/09/2013 7:37 AM CDT 10/09/2013 7:45 AM CDT Narrative [facility] - 10/09/2013 1:25 PM CDT Performed at [facility], [address] [place] [address] ??[phone] Jessica Rivas MD LAB_1 Performing Organization Address [facility] de Phone Number [facility] [employer] [phone] * MAMMOGRAM SCREENING BILATERAL (06/14/2012 7:57 AM CDT) Anatomical Region Laterality Modality Breast Bilateral Mammography 06/14/2012 7:57 AM CDT Narrative 06/15/2012 4:32 PM CDT Clinical History: ??Asymptomatic. Comparison: 03/29/2011 Breast Density: ??Average. Findings: Conventional craniocaudal and mediolateral oblique views were obtained. ??There is no evidence for spiculated masses, architectural distortion, asymmetry or suspicious calcifications. ?? Impression: ??No evidence of malignancy. Recommend routine annual screening mammography. This study was evaluated with the assistance of Computer-Aided Detection. ACR 1: Negative. A lay language report of this examination will be mailed to the patient. Electronically Signed By: Hannah Sanderson Dictated By: Hannah Sanderson Date: 06/15/2012 16:32:33 Procedure Note Hannah Sanderson MD - 06/25/2012 Clinical History: Asymptomatic. Comparison: 03/29/2011 Breast Density: Average. Findings: Conventional craniocaudal and mediolateral oblique views were obtained. There is no evidence for spiculated masses, architectural distortion, asymmetry or suspicious calcifications. Impression: No evidence of malignancy. Recommend routine annual screening mammography. This study was evaluated with the assistance of Computer-AidedDetection. ACR 1: Negative. A lay language report of this examination will be mailed to the patient. Electronically Signed By: Hannah Sanderson Dictated By: Hannah Sanderson Date: 06/15/2012 16:32:33 Jessica Rivas MD RAD [facility] from Last 3 Months or Most Recently Relevant to Health Maintenance Care Teams Mobile Phone Salesperson Relationship Specialty Start Date End Date Jessica Rivas MD [address] [place] [address] PCP - General Family Practice 05/10/11
--- OUTSIDE RECORDS SUMMARY | 2023-11-20 19:20 | XMS_ITS | Encounter Summary ---
Author Organization [facility] Address [address] [place] [address] Care Team Providers Care Thin Film Technician Name Role Phone Jessica Rivas MD Primary Care Provider Encounter Details Date Type Department Care Team (Late st Contact Info) Description 05/05/2014 Consent for Procedure/Treatme [facility] [address] [facility] [place] [address] Juvenal Cabrera MD INFORMED CONSENT FOR TREATMENTS OR PROCEDURES Social History Tobacco Use Types Packs/Day Years Used Date Smoking Tobacco: Every Day Cigarettes 1 30 Smokeless Tobacco: Never Alcohol Use Standard Drinks/Week [...] Infection Onset Date Last Indicated Resolved Time R/O COVID19 04/06/2021 04/06/2021 04/07/2021 5:46 AM NUTS AND BOLTS ASSEMBLER documented as of this encounter Care Teams Thin Film Technician Relationship Specialty Start Date End Date Jessica Rivas MD [address] [place] [address] PCP - General Family Practice 05/10/11 documented as of this encounter
--- OUTSIDE RECORDS SUMMARY | 2023-11-20 19:20 | XMS_ITS | Continuity of Care Document ---
Author Organization [facility] Address [address] [address] [place] [address] Phone Care Team Providers Care Sr Solutions Consultant Name Role Phone Unavailable Unavailable Unavailable Allergies, Adverse Reactions, Alerts Substance Reaction Status Criticality No Known Allergies Active No Inform ation Medications Medication Instructions Dosage Effective Dates (start - stop) Status Comments DICYCLOMINE 10MG CAP TAKE 1 CAPSULE BY MOUTH THREE TIMES DAILY 10 MG - Active ProAir HFA 90 mcg/actuation aerosol inhaler inhale 2 puff by inhalation route every 4 - 6 hours as needed - Active SYMBICORT (unknown strength) inhale 2 puff by inhalation route 2 times every day in the morning and evening Not Available - Active atorvastatin 40 mg tablet take 1 tablet by oral route every day 40 MG - Active Chantix 1 mg tablet take 1 tablet by oral route 2 times every day with glass of water after meals 1 MG - Active gabapentin 600 mg tablet take 1 tablet by oral route 3 times every day 600 MG - Active metformin 1,000 mg tablet take 1 tablet by oral route every day with morning and evening meals 1000 MG - Active rizatriptan 10 mg tablet take 1 tablet by oral route once daily as needed for migraines - Active dicyclomine 10 mg capsule take 1 capsule by oral route 3 times every day 10 MG - No Longer Active Procedures Procedure Date Offic/outpt E&m New Mod Sever 8 Advance Directives Directive Yes / No Effective Date File Name No Information Encounters Encounter Description Practice Location Reason(s) For Visit Diagnoses Date Provider Providers Copied on Encounter [facility], [address] [address], [place], [id number], [place] tel:[phone] [facility] No Information No Information Offic/outpt E&m New Mod Sever [facility], [address] [address], [place], [id number], [place] tel:[phone] [facility] GI Symptoms or Concerns (chief complaint) Abdominal pain, right upper quadrantDivert iculitis No Information Umberto Mauricio MD. tel:[phone] erring Provider: Referral Self, USE FOR SELF REFERRALS. Family History Family Member Type Diagnosis Age At Onset Father Problem (finding) cancer Payers Payer name Insurance type Covered democrat ID Esha gerardo(iam Morrow [id number] Social History Type Description Quantity Date Captured Comments Sex Female Smoking Status No Information Chief Complaint And Reason For Visit No Information Reason For Referral Reason For Referral No Information Plan Of Treatment Date Type Action Status Referral Ordered: CT Abdomen And Pelvis WITH Contrast Appointment date/timeframe: 11/30/2017 ordered History Of Present Illness Encounter Date Complaint History Of Prese nt Illness GI Symptoms or Concerns New kwasi ent visit.A 47-year-old female, who comes to the office today to discuss right upper quadrant pain. She recently underwent EGD and colonoscopy in January 2017 by [place] [facility] Those procedures are reviewed. EGD was negative and biopsies were negative. Colonoscopy showed an adenoma with otherwise negative biopsies of the colon. In early August 2017, she had an episode of abdominal pain. CT scan performed through the office of her primary care physician, Dr. Mauricio, showed a mild left-sided diverticulitis. She was treated with antibiotics for 2 weeks, which she finished last Sunday.Her pain is located in the right upper quadrant. It is chronic and feels like something is tugging or pulling or something is being kicked in the right upper quadrant. She is status post cholecystectomy. The pain increases with motion and decreases with ibuprofen. It is not related to bowel movements. There is no rectal bleeding or melena. There is n Functional Status Date Functional Assessmen t No Information Instructions Date Instruction Additional Infor kt 1. At this juncture, I would recommend a CT scan of the abdomen to confirm that the diverticulitis is healed. This will be ordered today and it also gives a better chance to reevaluate the right upper quadrant. Patient will be notified of the results.2. Add dicyclomine 10 mg t.i.d. with meals. Patient was given a new prescription #90 to her pharmacy of choice with a refill.3. High-fiber diet 25 g daily was discussed with the patient and we discussed the role of fiber in the maintenance of regular bowel habits. She was given literature regarding this today as part of her after visit summary.4. I do not have followup scheduled with this patient, but I would be more than happy to see her back as needed and/or requested or if any new GI relatable symptoms crop up. Otherwise, she should follow up with her primary care provider in [place], Dr. Mauricio.5. Patient's questions were answered today to her satisfaction. She voices understanding and agrees with the above plan. Related to Abdominal pain, right upper quadrant Abdominal Pain Related to Abdom inal pain, right upper quadrant High Fiber Diet Related to Abdom inal pain, right upper quadrant Assessments Type Assessment Date No Information Patient Care Teams Name Effective Dates (start - stop) Status Members No Information
--- OUTSIDE RECORDS SUMMARY | 2023-11-20 19:20 | XMS_ITS | Encounter Summary ---
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
--- OUTSIDE RECORDS SUMMARY | 2023-11-20 19:20 | XMS_ITS | Encounter Summary ---
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
--- OUTSIDE RECORDS SUMMARY | 2023-11-20 19:20 | XMS_ITS | Clinical Summary ---
Author Organization [facility] Address [address] [place] [address] Care Team Providers Care Carbon Dioxide Operator Name Role Phone Elsewhere, Pcp Primary Care Provider Unavailabl e Source Comments Patient records contain information from all sites at [facility]. For routine questions regarding patient records, call [phone] during business hours, M-F 8:00 AM - 5:00 PM Central Time. Record requests for emergency care only can be directed to [phone] at any time.[facility] Allergies No known active allergies Medications Medication Sig Dispensed Refills Start Date End Date Status SUMAtriptan (IMITREX) 100 mg tablet GIVE AT MINIMUM 2 HOURS APART. MAXIMUM DOSE OF 200 MG PER 24 HOURS. 3 Active ipratropium-albu teroL (DUONEB) 0.5-2.5 mg/3 mL nebulizer solution INHALE 1 VIAL BY MOUTH VIA NEBULIZER EVERY 6 HOURS NEEDED FOR SHORTNESS OF BREATH 3 Active gabapentin (NEURONTIN) 600 mg tablet Take 600 mg by mouth 3 (three) times a day. 3 Active budesonide-formo teroL (Symbicort) 160-4.5 mcg/actuation inhaler Inhale 2 puffs 2 (two) times a day. 2 Active atorvastatin (Lipitor) 80 mg tablet Take 80 mg by mouth daily. 3 Active Ventolin HFA 90 mcg/actuation inhaler INHALE 1 TO 2 PUFFS BY MOUTH EVERY 4 HOURS NEEDED FOR WHEEZING 1ST CHOICE 3 Active nebulizer accessories kit Nebulizer, disposable neb kit x 4, reuseable neb kit x 1, mask x 1, filters x 1. Frequency of use: every 6 hours as needed; Medication: Albuterol or Duoneb. Length of need: 99 months 2 Active blood sugar diagnostic strips (Blood Glucose Test Strips) daily. 5 Active lancets 30 gauge misc Use once daily as directed. Pharmacy dispense brand based on insurance. 4 Active buPROPion (Wellbutrin SR) 100 mg 12 hr tablet Take 1 tablet by mouth daily. Active hydrOXYzine (Atarax) 50 mg tablet Take 50-100 mg by mouth at bedtime as needed for anxiety (sleep). 4 Active QUEtiapine (SEROqueL) 200 mg tablet Take 200 mg by mouth at bedtime as needed. Dosen't take regularly due to drowsiness 4 Active metFORMIN (Glucophage) 500 mg tablet Take 1,000 mg by mouth 2 (two) times a day with meals. 3 Active Mounjaro 5 mg/0.5 mL pen injector injection 4 Active acetaminophen (TylenoL) 500 mg tablet Take 2 tablets (1,000 mg total) by mouth every 6 (six) hours as needed for pain. Please do not take more than 4,000 mg in 24 hours. 4 Active omeprazole (PriLOSEC) [address] capsule Take 1 capsule (40 mg total) by mouth daily before morning meal. 30 capsule 2 4 11/29/19 24 Active cyclobenzaprine (FlexeriL) 10 mg tabletIndication s:Sciatica Left Take 1 tablet (10 mg total) by mouth 3 (three) times a day as needed for muscle spasms for up to 5 days. 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 Take on Days 1 through 10 for tumor lysis syndrome prophylaxis 10 tablet 4 Active lidocaine viscous (Xylocaine) 2 % mucosal solution MIX 5 ML OF LIDOCAINE, ANTACID SUSPENSION, AND DIPHENHYDRAMINE LIQUID AND TAKE BY MOUTH FOUR TIMES A DAY AFTER MEALS AND AT BEDTIME. HOLD IN MOUTH FOR 1 MINUTE. 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 Days 1 through 5 of each cycle. 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 Days 1 through 5 of each cycle. 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 Results 11/14/2023 Orders Only Division of Hematology in [place], [place] [address] [place] [phone] External, Ordering ProviderAlonzo 11/09/2023 10:15 AM CDT Infusion Department of Oncology in [place], [place] [address] [place] [phone] Eric Renner M.D. 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) 11/08/2023 1:51 PM CDT - 11/08/2023 11:59 PM CDT Hospital Encounter Department of Radiology, [facility] in [place], [place] [address] [place] [phone] Eric Renner M.D. 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) Discharge Disposition: Home or Self Care 11/07/2023 10:00 AM CDT Clinical Communication Virtual Review in [place], [place] [address] [place] [address] Previsit Preparation (TAMRA DD) 11/02/2023 Clinical Communication Division of Hematology in [place], [place] [address] [place] [phone] Eric Renner M.D. Results 11/01/2023 Orders Only Division of Hematology in [place], [place] [address] [place] [phone] External, Ordering ProviderAlonzo 11/01/2023 Clinical Communication Division of Hematology in [place], [place] [address] [place] [phone] Eric Renner M.D. Results 10/23/2023 Orders Only Division of Hematology in [place], [place] [address] [place] [phone] Eric Renner M.D. 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 Rst hem lymph chemo 10/19/2023 7:30 AM CDT Infusion Department of Oncology in [place], [place] [address] [place] [phone] Eric Renner M.D. 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) 10/17/2023 Refill Division of Hematology in [address] [phone] Eric Renner M.D. Med Refill 10/17/2023 Orders Only [facility] [address] [place] [phone] Ahmet Martinez, PharmKristine, R.Ph. 10/16/2023 8:00 AM CDT Clinical Communication Virtual Review in [address] [phone] 10/11/2023 Clinical Communication Division of Hematology in [address] [phone] Eliza Collins M.D. External Lab Entry 09/28/2023 9:40 AM CDT Office Visit Department of Oncology in [address] [phone] Marina Rosario APRN, C.N.P., M.S.N. Marjan Bourgeois, R.N., O.C.N. 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 FORM/total and permanent disability loan program 09/28/2023 Clinical Communication Division of Hematology in [place], [place] [address] [place] [phone] Eric Renner M.D. Rst hem lymph chemo 09/27/2023 1:30 PM CDT Office Visit Division of Hematology in [place], [place] [address] [place] [phone] Eric Renner M.D. 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 Med Question 09/18/2023 Clinical Communication Division of Hematology in [place], [place] [address] [place] [phone] Eric Renner M.D. NEW HEM LYMPH CHEMO 09/18/2023 Orders Only Division of Hematology in [place], [place] [address] [place] [phone] Eric Renner M.D. 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 Madeleine Catherine M.A., [facility] Polyp Of Vocal Cord And Larynx 09/14/2023 2:00 PM CDT Ancillary Procedure Department of Otorhinolaryngology 09/14/2023 8:15 AM CDT - 09/14/2023 11:59 PM CDT Hospital Encounter Department of Radiology, [facility], in [place], [place] [address] [place] [phone] Eric Renner M.D. Diffuse Large B Cell Lymphoma Unspecified Site (HCC) Discharge Disposition: Home or Self Care 09/14/2023 6:13 AM CDT - 09/14/2023 8:14 AM CDT Hospital Encounter Department of Cardiovascular Diseases in [place], [place] [address] [place] [phone] Eric Renner M.D. Diffuse Large B Cell Lymphoma Unspecified Site (HCC) Discharge Disposition: Home or Self Care 09/14/2023 2:00 AM CDT Ancillary Procedure Department of Otorhinolaryngology 09/14/2023 Clinical Communication Division of Hematology in [place], [place] [address] [place] [phone] Eric Renner M.D. MARY/FORMS 09/14/2023 Clinical Communication Division of Hematology in [place], [place] [address] [place] [phone] Eric Renner M.D. Med Question 09/12/2023 Orders Only Division of Hematology in [place], [place] [address] [place] [phone] Eric Renner M.D. 09/12/2023 Clinical Communication Division of Hematology in [place], [place] [address] [place] [phone] Eric Renner M.D. Echo Scheduling 09/11/2023 2:34 PM CDT - 09/11/2023 11:59 PM CDT Hospital Encounter Department of Laboratory Medicine and Pathology, [place], [place] [address] [place] [phone] Eric Renner M.D. Diffuse Large B Cell Lymphoma Unspecified Site (HCC) Discharge Disposition: Home or Self Care 09/11/2023 2:30 PM CDT - 09/11/2023 2:33 PM CDT Hospital Encounter Department of Laboratory Medicine and Pathology, [facility] in [place], [place] [address] [place] [phone] Eric Renner M.D. Diffuse Large B Cell Lymphoma Unspecified Site (HCC) Discharge Disposition: Home or Self Care 09/11/2023 1:00 PM CDT Comprehensive Visit Division of Hematology in [place], [place] [address] [place] [phone] Eric Renner M.D. Diffuse Large B Cell Lymphoma Unspecified Site (HCC) 09/11/2023 Clinical Communication Division of Hematology in [place], [place] [address] [place] [phone] Eric Renner M.D. MARY/FORMS 08/31/2023 9:15 PM CDT Ancillary Procedure Department of General Surgery 08/31/2023 2:29 PM CDT Anesthesia Event [facility] [address] [place] [phone] Sugey Underwood M.D., Ph.D. Dereje Hill APRN, ART OBJECTS SALESPERSON, MNA 08/31/2023 12:38 PM CDT - 08/31/2023 2:45 PM CDT Surgery [facility] [address] [place] [phone] Larry Moore M.D. MICROSCOPIC DIRECT LARYNGOSCOPY WITH CARBON DIOXIDE LASER, biopsy, 08/31/2023 8:22 AM CDT - 08/31/2023 5:05 PM CDT Hospital Encounter [facility] [address] [place] [phone] Ghulam Horowitz M.D. Polyp Of Vocal Cord And Larynx Discharge Disposition: Home or Self Care 08/30/2023 Documentation Department of Orthopedic Surgery in [address] [phone] Jose Zhang M.D. 08/30/2023 Orders Only Department of Orthopedic Surgery in [address] [phone] Jose Zhang M.D. Diffuse Large B Cell Lymphoma Unspecified Site (HCC) (Primary Dx) 08/24/2023 Clinical Communication Department of Radiology, [facility] in [place], [place] [address] [place] [phone] Ishmael Zavala M.D. Follow-up (Post procedure call) 08/23/2023 12:27 PM CDT - 08/23/2023 5:28 PM CDT Hospital Encounter Department of Radiology, [facility], in [place], [place] [address] [place] [phone] Jose Zhang M.D. Tumor Bone Discharge Disposition: Home or Self Care 08/23/2023 9:00 AM CDT Comprehensive Visit Department of Orthopedic Surgery in [address] [phone] Jose Zhang M.D. Tumor Bone 08/22/2023 2:00 PM CDT Ancillary Procedure Department of Otorhinolaryngology 08/22/2023 12:08 PM CDT - 08/22/2023 11:59 PM CDT Hospital Encounter Department of Radiology, [facility], in [place], [place] [address] [place] [phone] Kendra Garcia M.D. Polyp Of Vocal Cord And Larynx Discharge Disposition: Home or Self Care 08/22/2023 10:00 AM CDT Comprehensive Visit Department of Otorhinolaryngology in [place], [place] [address] [place] [phone] Caridad Cardozo, Ph.D. 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 Polyp Of Vocal Cord And Larynx 08/22/2023 8:21 AM CDT - 08/22/2023 12:07 PM CDT Hospital Encounter Department of Laboratory Medicine and Pathology, [facility] in [place], [place] [address] [place] [phone] Jose Zhang M.D. Tumor Bone Discharge Disposition: Home or Self Care 08/21/2023 8:30 AM CDT Clinical Communication Virtual Review in [place], [place] [address] [place] [address] Pre-visit Intake 08/21/2023 Clinical Communication Department of Otorhinolaryngology in [address] [phone] Kendra Garcia M.D. from Last 3 Months Family History Medical History Relation Name Comments Pancreatic cancer Father Bonilla Hitchcock at 53 Hypertension Maternal Grandfather Meño Diabetes Maternal Grandmother Zayda Obesity Maternal Grandmother Zayda Stroke Maternal Grandmother Zayda several strokes Coronary artery disease Mother Callie Diabetes Mother Callie Obesity Mother Callie Diabetes Mother's Brother 1 William Diabetes Mother's Brother 2 Mat Diabetes Mother's Brother 3 Aleks Migraines Mother's Brother 3 Aleks Diabetes Mother's Brother 4 Art Thyroid disease Paternal Grandmother Sofia Gestational diabetes Sister 1 Lauren Obesity Sister 1 Lauren Gestational diabetes Sister 2 Monika Obesity Sister 2 Monika Rheum arthritis Sister 2 Monika Thyroid disease Sister 2 Monika underactive thyroid Relation Name Status Comments Father Bonilla Hitchcock Maternal Grandfather Meño Maternal Grandmother Zayda Mother Callie Mother's Brother 1 William Mother's Brother 2 Mat Mother's Brother 3 Aleks Mother's Brother 4 Art Paternal Grandmother Sofia Sister 1 Lauren Sister 2 Monika Social History Tobacco Use Types Packs/Day Years Used Date Smoking Tobacco: Every Day Cigarettes 1.5 81.8 Started: 02/12/1982 Smokeless Tobacco: Never Tobacco Cessation:Ready to Q uit: Not Asked; Counseling Given: Not Answered Alcohol Use Standard Drinks/Week Comments Not Currently 0 (1 standard drink = 0.6 oz pur e alcohol) rarely [facility] Utilities Answer Date Recorded In the past 12 months has e [employer], gas, oil, or water [employer] threatened to shut off services in your home? No 08/15/2023 Exercise Vital Sign Answer Date Recorde d On average, how many days pe r week do you engage in moderate to strenuous exercise (like a brisk walk)? 0 days 08/15/2023 On average, how many minutes do you engage in exercise at this level? 0 min 08/15/2023 Hunger Vital Sign Answer Date Recorded Within the past 12 months, y ou worried that your food would run out before you got the money to buy more. Never true 08/15/19 Within the past 12 months, t he food you bought just didn't last and you didn't have money to get more. Never true 08/15/2023 PRAPARE - Transportation Answer Date Re corded In the past 12 months, has l ack of transportation kept you from medical appointments or from getting medications? No 04/2023 In the past 12 months, has l ack of transportation kept you from meetings, work, or from getting things needed for daily living? No 08/15/2023 Nutrition Answer Date Recorded On average, how many serving s of fruits and vegetables do you eat per day (serving size is equal to 1 cup or approximately the size of a tennis ball)? 0-2 08/15/2023 Dental Answer Date Recorded Dental: Regular Dentist Yes 08/15/19 Employment Answer Date Recorded Employment status Unemployed/not in th e paid workforce but seeking employment 08/15/2023 Housing Stability Answer Date Recorded What is your living situation today? I have a [facility] place to live 08/15/2023 Sex and Gender Information Value Date Recorded Sex Assigned at Female 08/15/2023 7:51 AM CDT Gender Identity Female 08/15/2023 7:51 AM CDT Sexual Orientation Straight 08/15/2023 7: 51 AM CDT Last Filed Vital Signs Vital Sign Reading Time Taken Comments Blood Pressure 112/72 11/09/2023 8:42 AM CDT Pulse 123 11/09/2023 8:42 AM CDT Temperature 36.1 ??C (97 ??F) 11/09/2023 8:42 AM CDT Respiratory Rate 18 08/31/2023 4:40 PM CDT Oxygen Saturation 91% 11/09/2023 8:42 AM CDT Inhaled Oxygen Concentration - - Weight 80.6 kg (177 lb 9.3 oz) 11/09/2023 8:42 A M CDT Height 166.6 cm (5' 5.59) 11/09/2023 8:42 AM CD T Body Mass Index 29.02 11/09/2023 8:42 AM CDT Plan of Treatment Upcoming Encounters Date Type Department Care Team (Latest Contact Info) Description 11/28/2023 2:15 PM CDT Office Visit Department of Otorhinolaryngology in [place], [place] [address] [place] [phone] Kendra Garcia M.D. [address] [place] [phone] 11/29/2023 7:45 AM CDT Clinical Communication Virtual Review in [place], [place] [address] [place] [phone] 11/30/2023 7:00 AM CDT Appointment Department of Laboratory Medicine and Pathology, [facility], in [place], [place] [address] [place] [phone] Eric Renner M.D. [address] [place] [phone] 11/30/2023 9:00 AM CDT Office Visit Division of Hematology in [place], [place] [address] [place] [phone] Aníbal Reece APRN, C.N.P., M.S.N. [address] [place] [phone] 11/30/2023 12:15 PM CDT Infusion Department of Oncology in [place], [place] [address] [place] [phone] Eric Renner M.D. [address] [place] [phone] 12/20/2023 7:45 AM COMMUNICATIONS MARKETING INTERN Clinical Communication Virtual Review in [place], [place] [address] [place] [phone] 12/21/2023 7:00 AM COMMUNICATIONS MARKETING INTERN Appointment Department of Laboratory Medicine and Pathology, [facility] in [place], [place] [address] [place] [phone] Eric Renner M.D. [address] [place] [phone] 12/21/2023 9:00 AM COMMUNICATIONS MARKETING INTERN Office Visit Division of Hematology in [place], [place] [address] [place] [phone] Zulma Hickey APRN, C.N.P., M.S.N. [address] [place] [phone] 12/21/2023 10:00 AM COMMUNICATIONS MARKETING INTERN Infusion Department of Oncology in [place], [place] [address] [place] [phone] Eric Renner M.D. [address] [place] [phone] 01/11/2024 7:00 AM COMMUNICATIONS MARKETING INTERN Appointment Department of Laboratory Medicine and Pathology, [facility], in [place], [place] [address] [place] [phone] Eric Renner M.D. [address] [place] [phone] 01/11/2024 9:00 AM COMMUNICATIONS MARKETING INTERN Office Visit Division of Hematology in [place], [place] [address] [place] [phone] Susu Cameron M.D. [address] [place] [phone] 01/11/2024 10:15 AM COMMUNICATIONS MARKETING INTERN Infusion Department of Oncology in [place], [place] [address] [place] [phone] Eric Renner M.D. [address] [place] [phone] 01/14/2024 9:15 AM COMMUNICATIONS MARKETING INTERN Diagnostic Department of Otorhinolaryngology in [place], [place] [address] [place] [address] Eric Renner M.D. [address] [place] [phone] Wendy Moon Au.D., C.C.C.-A [address] [place] [phone] 01/14/2024 1:00 PM COMMUNICATIONS MARKETING INTERN Diagnostic Department of Otorhinolaryngology in [place], [place] [address] [place] [address] Eric Renner M.D. [address] [place] [phone] Osiel Middleton Au.D. [address] [place] [phone] 01/14/2024 4:00 PM COMMUNICATIONS MARKETING INTERN Clinical Support Department of Otorhinolaryngology in [place], [place] [address] [place] [phone] Eric Renner M.D. [address] [place] [phone] Taj Nicolas PGirish [address] [place] [phone] Health Maintenance Due Date Last Done Comments CT Colonography 1969 Cologuard 1969 FIT 1969 Tobacco Cessation counseling 1969 Lung Cancer Screening 08/05/2020 08/06/2019 COVID-19 Vaccine (3 - Pfizer risk series) 09/21/2020 08/24/2020, 08/03/2020 Mammogram 08/03/2021 08/03/2020, 07/14, 06/14/2012, Additional history exists Depression Screening (Annual PHQ-2) 02/12/2023 Influenza Vaccine (#1) 2023 , 01/08/2022, 11/28/2019, Additional history exists Lipid (Cholesterol) Screening 09/30/2026 09/30/2021, 06/24/2020, 01/22/2019, Additional history exists Fasting Glucose for Diabetes Screening 11/08/2026 11/09/2023, 10/17/2023, 09/27/2023, Additional history exists Colonoscopy 02/06/2027 02/06/2017 Colorectal Cancer Screening 02/06/2027 DTaP,Tdap,and Td Vaccines (3 - Td or Tdap) 10/06/2031 10/05/2021, 02/21/2012, 10/28/2002, Additional history exists Hepatitis B Vaccines Completed 07/11/2016, 09/25/2015, 11/13/2012 Pneumococcal vaccine (0-64 years) Completed 08/21/2021, 01/21/2013, 01/14/2013, Additional history exists Zoster Vaccines Completed 08/21/2021, 05/23/2021 HPV Vaccines Aged Out No longer eligi ble based on patient's age to complete this topic Procedures Procedure Name Priority Date/Time Associated Diagnosis Comments CBC WITH DIFFERENTIAL, B Routine 024 10:00 AM CDT COMPREHENSIVE METABOLIC PANEL, S/P Routine 11/09/2023 7:13 AM CDT 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) CBC WITH DIFFERENTIAL, B Routine 024 7:13 AM CDT 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) PET CT WHOLE BODY RAD - Routine (most inpatients and all outpatients) 11/08/2023 3:56 PM CDT 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) CBC WITH DIFFERENTIAL, B Routine 024 10:15 AM CDT COMPREHENSIVE METABOLIC PANEL, S/P Routine 10/17/2023 10:11 AM CDT 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) CBC WITH DIFFERENTIAL, B Routine 024 10:11 AM CDT 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) HEMATOLOGY/ONCOLOGY - BLOOD, EXTERNAL LAB RESULTS Routine 10/11/2023 LACTATE DEHYDROGENASE (LD), S Routine 09/27/2023 10:24 AM CDT 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) PHOSPHORUS (INORGANIC), S Routine 2023 10:24 AM CDT 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) URIC ACID, S/P Routine 09/27/2023 10:24 AM CDT 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) COMPREHENSIVE METABOLIC PANEL, S/P Routine 09/27/2023 10:24 AM CDT 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) CBC WITH DIFFERENTIAL, B Routine 024 10:24 AM CDT 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) OTORHINOLARYNGOLOGY IMAGE EXAM Routine 09/14/2023 2:[address] WHOLE BODY RAD - Routine (most inpatients and all outpatients) 09/14/2023 11:35 AM CDT Diffuse Large B Cell Lymphoma Unspecified Site (HCC) (TTE) 2D ECHO DOPPLER COLOR Routine 09/14/2023 7:38 AM CDT Diffuse Large B Cell Lymphoma Unspecified Site (HCC) OTORHINOLARYNGOLOGY IMAGE EXAM Routine 09/14/2023 2:00 AM CDT DIPSTICK, U Routine 09/11/2023 3:00 PM CDT IL OSMOLALITY ASSAY URINE Routine 2023 3:00 PM CDT MICROSCOPIC MANUAL Routine 09/11/2023 3:00 PM CDT PH, RANDOM, U Routine 09/11/2023 3:00 PM CDT URINALYSIS WITH MICROSCOPIC Routine 09/11/2023 3:00 PM CDT Diffuse Large B Cell Lymphoma Unspecified Site (HCC) LEUKEMIA/LYMPHOMA PHENOTYPE, B Routine 09/11/2023 2:56 PM CDT Diffuse Large B Cell Lymphoma Unspecified Site (HCC) GLUCOSE, FASTING, S/P Routine 09/11/2023 2:56 PM CDT Diffuse Large B Cell Lymphoma Unspecified Site (HCC) QN LYMPHOCYTE SUBSETS: T, B, AND NK, B Routine 09/11/2023 2:55 PM CDT Diffuse Large B Cell Lymphoma Unspecified Site (HCC) QUANTITATIVE M-PROTEIN STUDY, S Routine 09/11/2023 2:55 PM CDT Diffuse Large B Cell Lymphoma Unspecified Site (HCC) URIC ACID, S/P Routine 09/11/2023 2:55 PM CDT Diffuse Large B Cell Lymphoma Unspecified Site (HCC) POTASSIUM, S/P Routine 09/11/2023 2:55 PM CDT Diffuse Large B Cell Lymphoma Unspecified Site (HCC) LACTATE DEHYDROGENASE (LD), S Routine 09/11/2023 2:55 PM CDT Diffuse Large B Cell Lymphoma Unspecified Site (HCC) CREATININE WITH EGFR, S/P Routine 2023 2:55 PM CDT Diffuse Large B Cell Lymphoma Unspecified Site (HCC) CBC WITH DIFFERENTIAL, B Routine 024 2:55 PM CDT Diffuse Large B Cell Lymphoma Unspecified Site (HCC) CALCIUM, TOT, S/P Routine 09/11/2023 2:55 PM CDT Diffuse Large B Cell Lymphoma Unspecified Site (HCC) BILIRUBIN, TOT, S/P Routine 09/11/2023 2:55 PM CDT Diffuse Large B Cell Lymphoma Unspecified Site (HCC) [id number] (BETA-2-M), S Routine 09/11/2023 2:55 PM CDT Diffuse Large B Cell Lymphoma Unspecified Site (HCC) ASPARTATE AMINOTRANSFERASE (AST), S/P Routine 09/11/2023 2:55 PM CDT Diffuse Large B Cell Lymphoma Unspecified Site (HCC) ALKALINE PHOSPHATASE, S/P Routine 2023 2:55 PM CDT Diffuse Large B Cell Lymphoma Unspecified Site (HCC) 25-HYDROXYVITAMIN D2 AND D3, S Routine 09/11/2023 2:55 PM CDT Diffuse Large B Cell Lymphoma Unspecified Site (HCC) HIV-1/-2 AG AND AB SCREEN, PLASMA Routine 09/11/2023 2:55 PM CDT Diffuse Large B Cell Lymphoma Unspecified Site (HCC) HBS ANTIGEN SCRN, S Routine 09/11/2023 2:55 PM CDT Diffuse Large B Cell Lymphoma Unspecified Site (HCC) HCV AB W/REFLEX TO HCV PCR, S Routine 09/11/2023 2:55 PM CDT Diffuse Large B Cell Lymphoma Unspecified Site (HCC) HBC TOTAL AB SCRN, S Routine 09/11/2023 2:55 PM CDT Diffuse Large B Cell Lymphoma Unspecified Site (HCC) SURGERY IMAGE EXAM Routine 08/31/2023 4:06 PM CDT SURGICAL PATHOLOGY, [facility] Routine 08/31/2023 3:18 PM CDT Polyp Of Vocal Cord And Larynx GLUCOSE POCT, B Routine 08/31/2023 3:07 PM CDT LDA ANE ENDOTRACHEAL AIRWAY Routine 08/31/2023 2:44 PM CDT MICROSCOPIC DIRECT LARYNGOSCOPY WITH CARBON DIOXIDE LASER 08/31/2023 2:13 PM CDT Polyp Of Vocal Cord And Larynx Case Notes 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 at 8:26 CT BONE BIOPSY RAD - Routine (most inpatients and all outpatients) 08/23/2023 3:46 PM CDT Tumor Bone CYTOLOGY FINE NEEDLE ASPIRATION (INCLUDES CORE BIOPSIES Timed 08/23/2023 2:58 PM CDT Tumor Bone GLUCOSE POCT, B Routine 08/23/2023 2:07 PM CDT B-CELL LYMPHOMA, FISH, TISSUE Routine 08/23/2023 10:56 AM CDT ECG Routine 08/22/2023 2:40 PM CDT Polyp Of Vocal Cord And Larynx CT NECK LARYNX WITH IV CONTRAST RAD - Routine (most inpatients and all outpatients) 08/22/2023 1:07 PM CDT Polyp Of Vocal Cord And Larynx OTORHINOLARYNGOLOGY IMAGE EXAM Routine 08/22/2023 10:28 AM CDT LACTATE DEHYDROGENASE (LD), S Routine 08/22/2023 8:49 AM CDT Tumor Bone C-REACTIVE PROTEIN (CRP), S/P Routine 08/22/2023 8:49 AM CDT Tumor Bone COMPREHENSIVE METABOLIC PANEL, S/P Routine 08/22/2023 8:49 AM CDT Tumor Bone [id number] (BETA-2-M), S Routine 08/22/2023 8:49 AM CDT Tumor Bone IMMUNOGLOBULIN FREE LIGHT CHAINS, S Routine 08/22/2023 8:48 AM CDT Tumor Bone SEDIMENTATION RATE, B Routine 08/22/2023 8:48 AM CDT Tumor Bone CBC WITH DIFFERENTIAL, B Routine 024 8:48 AM CDT Tumor Bone from Last 3 Months Results * CBC with Differential, Blood (11/14/2023 10:00 AM CDT) Only the most recent of7 resultswithin the time period is included. EXT Leukocytes 5.80 4.50 - 11.00 K/uL [facility] EXT RBC 4.09 4.00 - 5.20 m/uL [facility] EXT Hemoglobin 13.0 12.0 - 16.0 gm/dL [facility] EXT Hematocrit 39.1 33.0 - 51.0 % [facility] EXT MCV 96 80 - 100 fL [facility] EXT Platelet Count 219 140 - 440 K/uL [facility] EXT Neutrophils 4.80 1.7 - 7.0 K/uL [facility] EXT Lymphocytes 0.90 0.90 - 2.90 K/uL [facility] EXT Monocytes 0.10 0.00 - 0.90 K/UL [facility] EXT Eosinophils 0.07 0.00 - 0.50 K/uL [facility] EXT Basophils 0.02 0.00 - 0.30 K/uL [facility] 11/14/2023 10:0 0 AM CDT Narrative [facility] - 11/14/2023 2:19 PM CDT External results verified in Extract by Zulma Ray on 11/14/2023 at 02:10 PM. Virgil Ordering Provider External MKristine LAB BLOO D ADD-ON [facility] [address] [place] [address], [facility] [phone] * (ABNORMAL) Comprehensive Metabolic Panel (11/09/2023 7:13 AM CDT) Only the most recent of4 resultswithin the time period is included. Potassium, S 5.1 3.6 - 5.2 mmol/L 11/09/2023 8:24 AM CDT DTL Sodium, S 146(H) 135 - 145 mmol/L 11/09/2023 8:24 AM CDT DTL Chloride, S 109(H) 98 - 107 mmol/L 11/09/2023 8:24 AM CDT DTL Bicarbonate, S 26 22 - 29 mmol/L 11/09/2023 8:24 AM CDT DTL Anion Gap 11 7 - 15 11/09/2023 8:24 AM CDT DTL BUN (Blood Urea Nitrogen), S 8 6 - 21 mg/dL 11/09/2023 8:24 AM CDT DTL Creatinine 0.86 0.59 - 1.04 mg/dL 11/09/2023 8:24 AM CDT DTL Estimated GFR (eGFR) 80 >=60 mL/min/BS A 11/09/2023 8:24 AM CDT DTL Comment: Estimated GFR calculated using the 2020 CKD_EPI creatinine equation. Calcium, Total, S 9.5 8.6 - 10.0 mg/dL 11/09/2023 8:24 AM CDT DTL Glucose, S 110 70 - 140 mg/dL 11/09/2023 8:24 AM CDT DTL Protein, Total, S 6.2(L) 6.3 - 7.9 g/dL 11/09/2023 8:24 AM CDT DTL Albumin, S 4.0 3.5 - 5.0 g/dL 11/09/2023 8:24 AM CDT DTL Aspartate Aminotransferase (AST), S 20 8 - 43 U/L 11/09/2023 8:24 AM CDT DTL Alkaline Phosphatase, S 112(H) 35 - 104 U/L 11/09/2023 8:24 AM CDT DTL Alanine Aminotransferase (ALT), S 24 7 - 45 U/L 11/09/2023 8:24 AM CDT DTL Bilirubin, Total, S <0.2 0.0 - 1.2 mg/dL 11/09/2023 8:24 AM CDT DTL Blood (Blood, Venous) 11/09/2023 7:13 AM CDT 11/09/2023 7:58 AM CDT Eric Monzon M.D. LAB BLOOD ADD-ON [facility] [address] [place] [address], [facility] DTL [facility] [address] [place] [address] * PET CT Whole Body FDG (11/08/2023 3:56 PM CDT) Only the most recent of2 resultswithin the time period is included. Anatomical Region Laterality Modality Whole body, Nuclear Medicine PET RST LOS, PET ARZ LOS, Nuclear Medicine PET FLA LOS, Nuclear Medicine N/A Positron Emission Tomogr aphy (PET), Positron Emission Tomography (PET) Impressions 11/08/2023 5:36 PM CDT Positive response to interval chemotherapy. Jc response score 2. Narrative 11/08/2023 5:36 PM CDT EXAM: ??PET CT WHOLE BODY FDG Serum glucose at time of F-18 FDG injection was 106 mg/dL. Patient followed standard dietary/fasting requirements for this exam. RADIOPHARMACEUTICAL/MEDS: Route: intravenous fludeoxyglucose F 18 injection SNF (FDG F-18),9.88 millicurie TECHNIQUE: ??F-18 FDG PET/CT scan was performed from the vertex through the toes with low dose, non-contrast, free-breathing CT images for attenuation correction and anatomic localization (AC/AL), with imaging beginning at approximately 60 minutes after radiotracer injection. COMPARISON: ??09/14/2023 PET/CT. INDICATION: ??Diffuse large B-cell lymphoma, status post therapy. Restaging. ??Subsequent treatment strategy. FINDINGS: ??Compared with 09/14/2023, there has been a positive response to interval chemotherapy. The large intensely FDG avid mass involving the left sacral ala, left iliac bone, and left acetabulum, and extending into the extraosseous soft tissues, including both the iliacus and gluteal musculature shows decreased size and uptake. The extraosseous soft tissue component appears to have completely involuted. There is only mild/moderate heterogeneous activity remaining within the bone. For example within the left sacral ala the current SUVmax measures 3.5 (axial fused image 266), previously 26.8. Previously seen FDG avid retroperitoneal, right common iliac, left internal iliac, and left external iliac chain lymph nodes have decreased in size and now show only faint uptake below mediastinal blood pool. The spleen is now normal sized and demonstrates normal metabolic activity. Mildly FDG avid mediastinal, pulmonary hilar, and bilateral axillary lymph nodes have also resolved. Mild diffuse increased uptake throughout the skeletal bone marrow should be reactive secondary to chemotherapy. No focal FDG avid osseous lesions. Probable inflammatory uptake along the upper esophagus (axial fused image 112). Mild inflammatory uptake along the right tibia from ACL repair. Presumed urinary contamination. Metformin related activity throughout the bowel. The FDG activity is otherwise physiologic. Significant incidental findings on the low-dose unenhanced CT fusion images: Maxillary sinus cysts. Bilateral dependent atelectasis. Coronary artery calcification. Trace pericardial effusion. Cholecystectomy. Hysterectomy. Extensive colonic diverticulosis. Patchy sclerosis in the left ilium. Scattered skeletal degenerative changes. Procedure Note Carson Mason M.D. - 11/08/2023 EXAM: PET CT WHOLE BODY FDG Serum glucose at time of F-18 FDG injection was 106 mg/dL. Patientfollowed standard dietary/fasting requirements for this exam. RADIOPHARMACEUTICAL/MEDS: Route: intravenous fludeoxyglucose F 18 injection SNF (FDG F-18),9.88 millicurie TECHNIQUE: F-18 FDG PET/CT scan was performed from the vertex through thetoes with low dose, non-contrast, free-breathing CT images for attenuationcorrection and anatomic localization (AC/AL), with imaging beginning atapproximately 60 minutes after radiotracer injection. COMPARISON: 09/14/2023 PET/CT. INDICATION: Diffuse large B-cell lymphoma, status post therapy.Restaging. Subsequent treatment strategy. FINDINGS: Compared with 09/14/2023, there has been a positive response tointerval chemotherapy. The large intensely FDG avid mass involving theleft sacral ala, left iliac bone, and left acetabulum, and extending intothe extraosseous soft tissues, including both the iliacus and gluteal musculature shows decreased sizeand uptake. The extraosseous soft tissue component appears to havecompletely involuted. There is only mild/moderate heterogeneous activityremaining within the bone. For example within the left sacral ala the current SUVmax measures 3.5 (axial fusedimage 266), previously 26.8. Previously seen FDG avid retroperitoneal, right common iliac, leftinternal iliac, and left external iliac chain lymph nodes have decreasedin size and now show only faint uptake below mediastinal blood pool. Thespleen is now normal sized and demonstrates normal metabolic activity. Mildly FDG avid mediastinal,pulmonary hilar, and bilateral axillary lymph nodes have also resolved.Mild diffuse increased uptake throughout the skeletal bone marrow shouldbe reactive secondary to chemotherapy. No focal FDG avid osseous lesions. Probable inflammatory uptake along the upper esophagus (axial fused ). Mild inflammatory uptake along the right tibia from ACL repair.Presumed urinary contamination. Metformin related activity throughout thebowel. The FDG activity is otherwise physiologic. Significant incidental findings on the low-dose unenhanced CT fusionimages: Maxillary sinus cysts. Bilateral dependent atelectasis. Coronaryartery calcification. Trace pericardial effusion. Cholecystectomy.Hysterectomy. Extensive colonic diverticulosis. Patchy sclerosis in the left ilium. Scattered skeletaldegenerative changes. IMPRESSION: Positive response to interval chemotherapy. Deauville response score 2. Eric Monzon M.D. IMG NM IL OCEDURES * Hematology/Oncology - Blood, External Lab Results (10/11/2023) Pathologist [facility] EXT Hemoglobin 14 OTHER (SPECIFY IN HYDROELECTRIC OPERATOR) EXT Hematocrit 42.4 OTHER (SPECIFY IN HYDROELECTRIC OPERATOR) EXT WBC 1.30 OTHER (SPE CIFY IN HYDROELECTRIC OPERATOR) EXT Absolute Neutrophil Count 0.10 OTHER (SPECIFY IN HYDROELECTRIC OPERATOR) EXT Lymphs Absolute 0.8 OTHER (SPECIFY IN HYDROELECTRIC OPERATOR) EXT Platelet Count 261 OTHER (SPECIFY IN HYDROELECTRIC OPERATOR) Blood 10/11/2023 Historical Provider LAB BLOOD NON ADD-ON OTHER (SPECIFY IN HYDROELECTRIC OPERATOR) N/A * Uric Acid (09/27/2023 10:24 AM CDT) Only the most recent of2 resultswithin the time period is included. Pathologist [facility] Uric Acid, S 4.0 2.7 - 6.1 mg/dL 09/27/2023 11:18 AM CDT DTL Blood (Blood, Venous) 09/27/2023 10:24 AM CDT 09/27/2023 10:58 AM CDT Eric Monzon M.D. LAB BLOOD ADD-ON [facility] [address] [place] [address], [place] DTL [facility] [address] [place] [address] * Phosphorus Inorganic (09/27/2023 10:24 AM CDT) Phosphorus (Inorganic), S 3.9 2.5 - 4.5 mg/dL 09/27/2023 11:18 AM CDT DTL Blood (Blood, Venous) 09/27/2023 10:24 AM CDT 09/27/2023 10:58 AM CDT Eric Monzon M.D. LAB BLOOD ADD-ON Performing Organization Address City/[facility]/ZIP Co de Phone Number [facility] [address] [place] [address] * (ABNORMAL) LD (Lactate Dehydrogenase) (09/27/2023 10:24 AM CDT) Only the most recent of3 resultswithin the time period is included. Lactate Dehydrogenase (LD), S 285(H) 122 - 222 U/L 09/27/2023 11:18 AM CDT DT Blood (Blood, Venous) 09/27/2023 10:24 AM CDT 09/27/2023 10:58 AM CDT Eric Monzon M.D. LAB BLOOD NON ADD-ON Performing Organization Address City/[facility]/ZIP Co de Phone Number [facility] [address] [place] [address] * Otorhinolaryngology Image Exam-Otorhinolaryngology Image Exam (09/14/2023 2:00 PM CDT) Only the most recent of3 resultswithin the time period is included. 09/14/2023 2:00 PM CDT Narrative [facility] - 09/14/2023 2:20 PM CDT This order has been created and auto-finalized to support the import of images acquired without order. The clinical documentation to support these images can be found on the encounter that produced images. Provider Not In System IMG NON RAD IMAGI NG PROCEDURES [facility] NA * (TTE) 2D ECHO DOPPLER COLOR (09/14/2023 7:38 AM CDT) Ejection Fraction 59 MC CV EIMS Mid-Ascending Aorta 30 MC CV EIMS LV Mass Index 75 MC CV EIMS LV End-Diastolic Diameter 45 MC CV EIMS LV End-Systolic Diameter 31 MC CV EIMS LV End-Diastolic Volume 87 MC CV EIMS LV End-Systolic Volume 36 MC CV EIMS MV E Velocity 0.8 MC CV EIMS MV A Velocity 0.9 MC CV EIMS MV E/A 0.89 MC CV EIMS MV e' Velocity Medial 0.07 MC CV EIMS MV e' Velocity Lateral 0.08 MC CV EIMS MV E/e' Medial 11.4 MC CV EIMS MV E/e' Lateral 10 MC CV EIMS Left ventricular stroke volume index 38 MC CV EIMS Cardiac Output 6.88 MC CV EIMS Cardiac Index 3.62 MC CV EIMS LV Global Longitudinal Strain -17 MC CV EIMS LV Interventricular Septal Wall Thickness 10 MC CV EIMS LV Posterior Wall Thickness 9 MC CV EIMS LV Relative Wall Thickness 40 MC CV EIMS Tricuspid Annular S? 0.11 MC CV EIMS RA Pressure 5 MC CV EIMS AV mean gradient 5 MC CV EIMS Aortic valve area 2.78 MC CV EIMS Aortic Valve Dimensionless Index 0.8 MC CV EIMS Aortic Valve Systolic Peak Velocity 1.4 MC CV EIMS Anatomical Region Laterality Modality Echocardiography 09/14/2023 6:28 AM CDT Impressions 09/14/2023 7:58 AM CDT There are no previous [facility] echocardiograms available for comparison. Patient was in extreme pain laying in left lateral position. Optimal images acquired in left lateral position, intermittently, based on patients pain tolerance. LEFT VENTRICLE:Normal left ventricular chamber size. Normal left ventricular geometry. Calculated 2-D biplane volumetric left ventricular ejection fraction of 59%. Left ventricular strain assessment was performed but not reported based on solar sales rep's judgment (limited image quality) No regional wall motion abnormalities. Normal left ventricular filling pressure. RIGHT VENTRICLE:Normal right ventricular chamber size. Normal right ventricular systolic function. Unable to detect peak tricuspid regurgitation velocity for pulmonary artery systolic pressure calculation. ATRIA:Normal left atrial size by visual estimate. Normal right atrial size. CARDIAC VALVES:Trileaflet aortic valve. Thickened aortic valve. No aortic valve regurgitation. Thickened mitral valve. Calcified mitral annulus. Trivial mitral valve regurgitation. Normal pulmonary valve. Trivial pulmonary valve regurgitation. Normal tricuspid valve. Trivial tricuspid valve regurgitation. OTHER ECHO FINDINGS:Normal inferior vena cava size with normal inspiratory collapse (>50%). Normal mid ascending aorta diameter of 30 mm. Abdominal aorta incompletely visualized. Normal abdominal aorta Doppler flow pattern. No atrial level shunt by color flow imaging. No intracardiac mass or thrombus, but the left atrial appendage cannot be visualized adequately with transthoracic echo to exclude thrombus in this location. No ??pericardial effusion. Prominent anterior epicardial fat layer. For the complete report, see the Order-Level Documents. Narrative 09/14/2023 7:58 AM CDT For the complete report, see the Order-Level Documents. Hemodynamics Heart Rate: 91 BPM Blood Pressure: 97 / 64 mmHg ECG: Sinus rhythm Final Impressions 1. Normal left ventricular chamber size, no regional wall motion abnormalities, calculated 2-D biplane volumetric ejection fraction of 59%. 2. Normal left ventricular geometry, normal filling pressure. 3. Normal right ventricular chamber size, normal systolic function, unable to detect peak tricuspid regurgitation velocity for pulmonary artery systolic pressure calculation. 4. No ??significant valvular heart disease. 5. No ??pericardial effusion. Procedure Note Ivonne Norman M.D., Ph.D. - 09/14/2023 For the complete report, see the Order-Level Documents. Hemodynamics Heart Rate: 91 BPM Blood Pressure: 97 / 64 mmHg ECG: Sinus rhythm Final Impressions 1. Normal left ventricular chamber size, no regional wall motionabnormalities, calculated 2-D biplane volumetric ejection fraction of59%. 2. Normal left ventricular geometry, normal filling pressure. 3. Normal right ventricular chamber size, normal systolic function, unableto detect peak tricuspid regurgitation velocity for pulmonary arterysystolic pressure calculation. 4. No significant valvular heart disease. 5. No pericardial effusion. Findings There are no previous [facility] echocardiograms available forcomparison. Patient was in extreme pain laying in left lateral position.Optimal images acquired in left lateral position, intermittently, based onpatients pain tolerance. LEFT VENTRICLE:Normal left ventricular chamber size. Normal leftventricular geometry. Calculated 2-D biplane volumetric left ventricularejection fraction of 59%. Left ventricular strain assessment was performedbut not reported based on solar sales rep's judgment (limited image quality)No regional wall motion abnormalities. Normal left ventricular fillingpressure. RIGHT VENTRICLE:Normal right ventricular chamber size. Normal rightventricular systolic function. Unable to detect peak tricuspidregurgitation velocity for pulmonary artery systolic pressurecalculation. ATRIA:Normal left atrial size by visual estimate. Normal right atrialsize. CARDIAC VALVES:Trileaflet aortic valve. Thickened aortic valve. No aorticvalve regurgitation. Thickened mitral valve. Calcified mitral annulus.Trivial mitral valve regurgitation. Normal pulmonary valve. Trivialpulmonary valve regurgitation. Normal tricuspid valve. Trivial tricuspidvalve regurgitation. OTHER ECHO FINDINGS:Normal inferior vena cava size with normal inspiratorycollapse (>50%). Normal mid ascending aorta diameter of 30 mm. Abdominalaorta incompletely visualized. Normal abdominal aorta Doppler flowpattern. No atrial level shunt by color flow imaging. No intracardiac massor thrombus, but the left atrial appendage cannot be visualized adequatelywith transthoracic echo to exclude thrombus in this location. Nopericardial effusion. Prominent anterior epicardial fat layer. For the complete report, see the Order-Level Documents. Authorizing Provider Result Aura Monzon M.D. CV ECHO P ROCEDURES * Osmolality, Urine (09/11/2023 3:00 PM CDT) Osmolality, U 536 150 - 1150 mOsm/kg 09/11/2023 3:36 PM CDT DTL Urine 09/11/2023 3:00 PM CDT 09/11/2023 3:22 PM CDT Narrative Authorizing Provider Result Aura Monzon M.D. LAB URINE ORDERABLES [facility] [address] [place] [address], [facility] DTL [facility] [address] [place] [address] * Dipstick, Urine (09/11/2023 3:00 PM CDT) Hemoglobin, QL, U Negative Negative 09/11/2023 3:24 PM CDT DTL Leukocyte Esterase, U Negative Negative 09/11/2023 3:24 PM CDT DTL Nitrite, U Negative Negative 09/11/2023 3:24 PM CDT DTL Ketone, U Negative Negative mg/dL 09/11/2023 3:24 PM CDT DTL Glucose, U Negative Negative mg/dL 09/11/2023 3:24 PM CDT DTL Urine 09/11/2023 3:00 PM CDT 09/11/2023 3:22 PM CDT Eric Monzon M.D. LAB URINE ORDERABLES [facility] [address] [place] [address], [facility] [address] [place] [address] * pH, Random, Urine (09/11/2023 3:00 PM CDT) Pathologist [facility] pH, Random, U 5.1 4.5 - 8.0 09/11/2023 3:36 PM CDT DTL Urine 09/11/2023 3:00 PM CDT 09/11/2023 3:22 PM CDT Narrative Authorizing Provider Result Aura Monzon M.D. LAB URINE ORDERABLES [facility] [address] [place] [address], [address] [address] * (ABNORMAL) Microscopic Manual (09/11/2023 3:00 PM CDT) Microscopy Abnormal 09/11/2023 4:28 PM CDT DTL RBC <3 <3 /hpf 09/11/2023 4:28 PM CDT DTL WBC 1-3 /hpf 09/11/2023 4:28 PM CDT DTL Comment: ----REFERENCE VALUE---- <4 ??(Males) <11 (Females) Casts, Hyaline 11-20 /lpf 09/11/2023 4:28 PM CDT DTL Casts, Granular Occas(A) /lpf 4:28 PM CDT DTL Renal Epithelial Cells 1-3(A) /hpf 09/11/2023 4:28 PM CDT DTL Squamous Epithelial Cells, U 1-3 /hpf 09/11/2023 4:28 PM CDT DTL Urine 09/11/2023 3:00 PM CDT 09/11/2023 3:22 PM CDT Eric Monzon M.D. LAB URINE ORDERABLES [facility] [address] [place] [address], [facility] [address] [place] [address] * Urinalysis, with Microscopic: Urine, Midstream (09/11/2023 3:00 PM CDT) Source Urine, Urine, Midstream 09/11/2023 3:22 PM CDT DTL Color, U Yellow 09/11/2023 3:22 PM CDT DTL Clarity, U Clear 09/11/2023 3:22 PM CDT DTL Protein, U 8 <26 mg/dL 09/11/2023 4:06 PM CDT DTL Protein/Osmol ality 0.15 <0.42 ratio 09/11/2023 4:06 PM CDT DTL Predicted 24 HR Protein, U 119 <229 mg/24 h 09/11/2023 4:06 PM CDT DTL Predicted Range 29-482 mg/24 h 09/11/2023 4:06 PM CDT DTL Comment Micro done on <5 mL 09/11/2023 4:27 PM CDT DTL Urine (Urine, Midstream) 09/11/2023 3:00 PM CDT 09/11/2023 3:22 PM CDT Eric Monzon M.D. LAB URINE ORDERABLES [facility] [address] [place] [address], [place] DTL [facility] [address] [place] [address] * Leukemia/Lymphoma Immunophenotyping by Flow Cytometry, Blood (09/11/2023 2:56 PM CDT) LCMSB Result Performed 09/12/2023 12:36 PM CDT DTL Final Diagnosis: Peripheral blood, flow cytometric immunophenotyping: Normal immunophenotyping results. ??No monotypic B-cell population or increase in blasts identified. Reviewed by: Becca Segovia M.D. 09/12/2023 12:36 PM CDT DTL Special Studies: WBC: ??5.5 x 10(9)/L %Lymphs (CBC/automated differential): ??32% #Lymphs (CBC/automated differential): ??1.7 x 10(9)/L Results: Blasts: ??Not increased by CD45/side scatter and CD34. B-cells: ??No monotypic; normal expression pattern of CD19, CD10, surface kappa and lambda. T-cells/NK-cells: ??No aberrant phenotype by CD3 and CD16. Quality Assessment: ??Specimen received within validated guidelines. 09/12/2023 12:36 PM CDT DTL Microscopic Description A Rusvxj-Fuoizy-dsllfi d slide prepared from the flow cytometry specimen is examined. ??No morphologic features of acute leukemia or lymphoma are identified. 09/12/2023 12:36 PM CDT DTL Comment: ----ADDITIONAL INFORMATION---- This test was developed using an analyte specific reagent. Its performance characteristics were determined by [facility] in a manner consistent with CLIA requirements. This test has not been cleared or approved by the U.S. Food and Drug Administration. Blood (Blood, Venous) 09/11/2023 2:56 PM CDT 09/11/2023 3:20 PM CDT Eric Monzon M.D. LAB SHILO IC TESTING Performing Organization Address [facility]/ZIP Co de Phone Number [facility] [address] [place] [address], [address] [address] * (ABNORMAL) Glucose, Fasting (09/11/2023 2:56 PM CDT) Glucose, P 103(H) 70 - 100 mg/dL 09/11/2023 3:40 PM CDT DTL Last Intake 8 hr 09/11/2023 3:08 PM CDT DTL Blood (Blood, Venous) 09/11/2023 2:56 PM CDT 09/11/2023 3:08 PM CDT Eric Monzon M.D. LAB BLOOD NON ADD-ON Performing Organization Address [facility] Co de Phone Number [facility] [address] [place] [address], [address] [address] * (ABNORMAL) Quantitative M-protein Study (09/11/2023 2:55 PM CDT) Immunoglobulin A (IgA), S 142 61 - 356 mg/dL 09/12/2023 8:05 AM CDT [facility] Immunoglobulin M (IgM), S 319(H) 37 - 286 mg/dL 09/12/2023 8:04 AM CDT [facility] Immunoglobulin G (IgG), S 720(L) 767 - 1590 mg/dL 09/12/2023 8:04 AM CDT [facility] Therapeutic Antibody Administered? Unspecified 09/12/2023 6:09 AM CDT [facility] Flag, M-protein Isotype Negative Negative 09/12/2023 5:43 PM CDT [facility] QMPTS Interpretation No monoclonal protein detected. 09/12/2023 5:43 PM CDT [facility] Comment: ----ADDITIONAL INFORMATION---- The submitted sample was assayed by five separate immunopurifications for IgG, IgA, IgM, kappa and lambda. ??The result reflects the findings of either no monoclonal protein detected or those monoclonal immunoglobulins that were detected. This test was developed and its performance characteristics determined by [facility] in a manner consistent with CLIA requirements. This test has not been cleared or approved by the U.S. Food and Drug Administration. Blood (Blood, Venous) 09/11/2023 2:55 PM CDT 09/12/2023 6:17 AM CDT Narrative [facility] - 09/12/2023 5:43 PM CDT Specimen Information: Specimen ID: [id number] Specimen Type: Blood Specimen Collection Start Date: 09/11/2023 ??2:55 PM Specimen Received Date: 09/12/2023 ??6:17 AM Specimen ID: [id number] Specimen Type: Blood Specimen Collection Start Date: 09/11/2023 ??2:55 PM Specimen Received Date: 09/12/2023 ??6:09 AM Eric Monzon M.D. LAB BLOOD ADD-ON [facility] [address] [place] [address] [facility] [address] [place] [address] [facility] [address] [place] [address] [place] [address] * HBs Antigen Scrn, Serum (09/11/2023 2:55 PM CDT) HBs Antigen Scrn, S Negative Negative 09/11/2023 7:33 PM CDT [facility] Blood (Blood, Venous) 09/11/2023 2:55 PM CDT 09/11/2023 6:41 PM CDT Eric Monzon M.D. LAB MICRO BIOLOGY - BLOOD ORDERABLES [facility] [address] [place] [address] [facility] [address] [place] [address] * HBc Total Ab Scrn, Serum (09/11/2023 2:55 PM CDT) [facility] HBc Total Ab Scrn, S Negative Negative 09/11/2023 7:33 PM CDT [facility] Blood (Blood, Venous) 09/11/2023 2:55 PM CDT 09/11/2023 6:41 PM CDT Eric Monzon M.D. LAB MICRO BIOLOGY - BLOOD ORDERABLES [facility] [address] [place] [address] [facility] [address] [place] [address] * HIV-1/-2 Ag and Ab Screen, Plasma (09/11/2023 2:55 PM CDT) [facility] HIV-1/-2 Ag and Ab Screen, P Negative Negative 09/11/2023 7:28 PM CDT [facility] Comment: Negative result does not rule out HIV infection. If exposure to HIV infection occurred <14 days ago, contact the laboratory to request addition of HIV-1/HIV-2 RNA detection, Plasma (HIP12). Blood (Blood, Venous) 09/11/2023 2:55 PM CDT 09/11/2023 6:41 PM CDT Eric Monzon M.D. LAB MICRO BIOLOGY - BLOOD ORDERABLES [facility] [address] [place] [address] [facility] [address] [place] [address] * (ABNORMAL) Quantitative Lymphocyte Subsets: T, B, and Natural Killer (NK) (09/11/2023 2:55 PM CDT) [facility] CD45 Total Lymph Count 2.40 0.82 - 2.84 thou/mcL 09/12/2023 10:27 AM CDT [facility] % CD3 (T Cells) 49(L) 58 - 86 % 10:27 AM CDT [facility] CD3 (T Cells) 1169 550 - 2202 cells/mcL 09/12/2023 10:27 AM CDT [facility] % CD4 (T Cells) 28(L) 32 - 64 % 10:27 AM CDT [facility] CD4 (T Cells) 676 365 - 1437 cells/mcL 09/12/2023 10:27 AM CDT [facility] % CD8 (T Cells) 21 11 - 40 % 10:27 AM CDT [facility] CD8 T Cells 506 117 - 846 cells/mcL 09/12/2023 10:27 AM CDT [facility] % CD19 (B Cells) 44(H) 5 - 24 % 09/12/19 24 10:27 AM CDT [facility] CD19 (B Cells) 1066(H) 60 - 409 cells/mcL 09/12/2023 10:27 AM CDT [facility] % CD16+CD56 (NK cells) 6 5 - 28 % 09/12/2023 10:27 AM CDT [facility] CD16+CD56 (NK cells) 153 59 - 513 cells/mcL 09/12/2023 10:27 AM CDT [facility] 4/8 Ratio 1.3 >=0.9 09/12/2023 10:27 AM CDT [facility] Comment: ----ADDITIONAL INFORMATION---- This test was developed using an analyte specific reagent. Its performance characteristics were determined by [facility] in a manner consistent with CLIA requirements. This test has not been cleared or approved by the U.S. Food and Drug Administration. Blood (Blood, Venous) 09/11/2023 2:55 PM CDT 09/11/2023 6:38 PM CDT Eric Monzon M.D. LAB BLOOD ADD-ON [facility] [address] [place] [address] [facility] [address] [place] [address] [place] [address] * HCV Ab w/Reflex to HCV PCR, Serum (09/11/2023 2:55 PM CDT) HCV Ab, S Negative Negative 09/11/2023 7:30 PM CDT [facility] Comment: Consumption of high-dose biotin supplement within 12 hours of blood collection for this test can cause false-negative results. Blood (Blood, Venous) 09/11/2023 2:55 PM CDT 09/11/2023 6:41 PM CDT Narrative Authorizing Provider Result Aura Monzon M.D. LAB MICRO BIOLOGY - BLOOD ORDERABLES Performing Organization Address [facility]/ZIP Co de Phone Number [facility] [address] [place] [address] [facility] [address] [place] [address] * 25-Hydroxyvitamin D2 and D3 (09/11/2023 2:55 PM CDT) Pathologist [facility] 25-Hydroxy D2 <4.0 ng/mL 09/12/2023 4:44 PM CDT [facility] 25-Hydroxy D3 29 ng/mL 09/12/2023 4:44 PM CDT SDS 25-Hydroxy D Total 29 ng/mL 2023 4:44 PM CDT [facility] Comment: ----REFERENCE VALUE---- 25-HYDROXY D TOTAL (D2+D3) Optimum levels in the healthy population are 20-50. ----ADDITIONAL INFORMATION---- This test was developed and its performance characteristics determined by [facility] in a manner consistent with CLIA requirements. This test has not been cleared or approved by the U.S. Food and Drug Administration. Blood (Blood, Venous) 09/11/2023 2:55 PM CDT 09/12/2023 7:05 AM CDT Narrative Authorizing Provider Result Aura Monzon M.D. LAB BLOOD ADD-ON Performing Organization Address City/[facility]/ZIP Co de Phone Number [facility] [address] [place] [address] [facility] [address] [place] [address] [place] [address] * AST (Aspartate Aminotransferase) (09/11/2023 2:55 PM CDT) Aspartate Aminotransferase (AST), S 24 8 - 43 U/L 09/11/2023 3:44 PM CDT DTL Blood (Blood, Venous) 09/11/2023 2:55 PM CDT 09/11/2023 3:26 PM CDT Eric Monzon M.D. LAB BLOOD ADD-ON [facility] [address] [place], [place] [address] [place] [address] [address] [place] [address] * Potassium (09/11/2023 2:55 PM CDT) Pathologist [facility] Potassium, S 5.1 3.6 - 5.2 mmol/L 09/11/2023 3:44 PM CDT DTL Blood (Blood, Venous) 09/11/2023 2:55 PM CDT 09/11/2023 3:26 PM CDT Narrative Authorizing Provider Result Aura Monzon M.D. LAB BLOOD ADD-ON Performing Organization Address City/[facility]/ZIP Co de Phone Number [facility] [address] [place] [address], [facility] [address] [place] [address] * (ABNORMAL) Alkaline Phosphatase (09/11/2023 2:55 PM CDT) Alkaline Phosphatase, S 141(H) 35 - 104 U/L 09/11/2023 3:44 PM CDT DTL Blood (Blood, Venous) 09/11/2023 2:55 PM CDT 09/11/2023 3:26 PM CDT Narrative Authorizing Provider Result Aura Monzon M.D. LAB BLOOD ADD-ON [facility] [address] [place] [address], [facility] [address] [place] [address] * Creatinine with Estimated GFR (09/11/2023 2:55 PM CDT) Creatinine 0.95 0.59 - 1.04 mg/dL 09/11/2023 3:44 PM CDT DT Estimated GFR (eGFR) 71 >=60 mL/min/BSA 09/11/2023 3:44 PM CDT DT Comment: Estimated GFR calculated using the 2020 CKD_EPI creatinine equation. Blood (Blood, Venous) 09/11/2023 2:55 PM CDT 09/11/2023 3:26 PM CDT Eric Monzon M.D. LAB BLOOD ADD-ON Performing Organization Address City/[facility]/ZIP Co de Phone Number [facility] [address] [place], [place] [address] [address] [place] [address] * (ABNORMAL) Calcium, Total (09/11/2023 2:55 PM CDT) Calcium, Total, S 10.1(H) 8.6 - 10.0 mg/dL 09/11/2023 3:44 PM CDT DT Blood (Blood, Venous) 09/11/2023 2:55 PM CDT 09/11/2023 3:26 PM CDT Eric Monzon M.D. LAB BLOOD ADD-ON [facility] [address] [place], [place] [address] [place] [address] * Bilirubin, Total (09/11/2023 2:55 PM CDT) Bilirubin, Total, S 0.4 0.0 - 1.2 mg/dL 09/11/2023 3:44 PM CDT DT Blood (Blood, Venous) 09/11/2023 2:55 PM CDT 09/11/2023 3:26 PM CDT Eric Monzon M.D. LAB BLOOD ADD-ON Performing Organization Address [facility] Co de Phone Number [facility] [address] [place] [address], [facility] [address] [place] [address] * (ABNORMAL) Zxit-2-Bhaoymeeuhvtc (Beta-2-M) (09/11/2023 2:55 PM CDT) Only the most recent of2 resultswithin the time period is included. Ycgb-1-Jvnitfg obulin, S 2.97(H) 1.21 - 2.70 mcg/mL 09/12/2023 9:00 AM CDT [facility] Blood (Blood, Venous) 09/11/2023 2:55 PM CDT 09/12/2023 6:17 AM CDT Eric Monzon M.D. LAB BLOOD ADD-ON Performing Organization Address [facility] de Phone Number [facility] [address] [place] [address] [facility] [address] [place] [address] * MICROSCOPIC DIRECT LARYNGOSCOPY WITH CARBON DIOXIDE LASER-Surgery Image Exam (08/31/2023 4:06 PM CDT) Narrative [facility] - 08/31/2023 4:06 PM CDT This order has been created and auto-finalized to support the import of images acquired without order. The clinical documentation to support these images can be found on the encounter that produced images. Provider Not In System IMG NON RAD IMAGI NG PROCEDURES Performing Organization Address [facility] Co de Phone Number [facility] NA * Surgical Pathology, Frozen Lab (08/31/2023 3:18 PM CDT) 09/09/2023 5:17 PM CDT [facility] Participated in the Interpretation Denilson Rendon M.D. -Pathology Resident 09/09/2023 5:17 PM CDT [facility] Report electronically signed by Ruben Isaacs M.D. I verify that I have examined all relevant slides/materials for the specimen(s) and rendered or confirmed the diagnosis. 09/09/2023 5:17 PM CDT [facility] Frozen Intraoperative Report A. ??Larynx, right true vocal fold, biopsy: ??Minute fragment of benign squamous epithelium. ??No definite neoplasm is identified. B. ??Larynx, right true vocal fold No. 2, biopsy: ??Benign squamous mucosa. Signed by Ruben Isaacs M.D. 09/03/2023 5:21 PM 09/09/2023 5:17 PM CDT [facility] Gross Description A. ??Received fresh labeled right true vocal fold biopsy is a 0.6 x 0.6 x 0.2 cm aggregate of mcqueen-white soft tissue. All submitted for frozen and permanent sections. ??Grossed by Jim Art.Shama., P.A. ([facility]). B. ??Received fresh labeled right true vocal fold biopsy No. 2 is a 0.4 x 0.2 x 0.1 cm fragment of mcqueen-white tissue. ??All submitted for frozen and permanent sections. Grossed by Xavi Narvaez M.D.-Pathology Resident. 09/09/2023 5:17 PM CDT [facility] Block Summary A Right true vocal fold biopsy A1 Vocal fold biopsy - Frozen B Right true vocal fold biopsy #2 B1 Biopsy #2- Frozen 09/09/2023 5:17 PM CDT [facility] Interpretation FINAL DIAGNOSIS A. ??Larynx, right true vocal fold, biopsy: ??Minute fragment of hyperkeratotic squamous epithelium. B. ??Larynx, right true vocal fold No. 2, biopsy: ??Benign squamous mucosa. 09/09/2023 5:17 PM CDT [facility] Tissue (Vocal Cord) 08/31/2023 3:18 PM CDT Tissue (Vocal Cord) 08/31/2023 3:38 PM CDT Larry Moore M.D. LAB SURG PATH ORDERA BLES Performing Organization Address City/[facility]/ZIP Co de Phone Number [facility] [address] [place] [address], [facility] STMA 200 [facility] [address] [place] [address] * Glucose, POCT (08/31/2023 3:07 PM CDT) Only the most recent of2 resultswithin the time period is included. Glucose, POCT, B 102 70 - 140 mg/dL 08/31/2023 3:11 PM CDT PCS[facility] Site Capillary 08/31/2023 3:11 PM CDT PCSM Blood 08/31/2023 3:07 PM CDT 08/31/2023 3:11 PM CDT Unknown Provider LAB POCT ORDERABLES- MANUAL Performing Organization Address City/[facility] Co de Phone Number POC RST [facility] [address] [place] [address], [facility] PCSM [facility] POC [address] [place] [address] * LDA ANE ENDOTRACHEAL AIRWAY (08/31/2023 2:44 PM CDT) Narrative Melanie Jones APRN, CRNA, DNAP - 08/31/2023 2:44 PM CDT Melanie Jones APRN, CRNA, DNAP ? 08/31/2023 ??2:51 PM Airway Date/Time: 08/31/2023 2:44 PM Performed by: Melanie Jones APRN, CRNA, DNAP Authorized by: Buddy Morton M.D., M.S. ?? Patient location during procedure: OR / Procedure Area PROCEDURE DETAILS: Mask difficulty assessment: easy mask Final airway type: direct laryngoscopy, intubation Laryngeal Manipulation: no ?? Final airway difficulty of direct laryngoscopy (DL): 0-easy Final best view of glottic structures - Cormack/Lehane Score: grade 2A ETT location: oral Blade type: El 2 Tube size: 5 ETT distance at teeth/gum: 20 Oral tube type: laser Cuffed: yes Leak Test Performed: no ?? Number of attempt to successful placement: 1 Airway confirmation: bilateral breath sounds, positive ETCO2 and bilateral chest rise Other previous techniques attempted: none PRE PROCEDURE DETAILS: Pre evaluation for airway management: procedure Urgency: elective Preop assessment of probable difficulty: no difficulty anticipated Preoxygenation: bag valve mask SEDATION / ANESTHESIA Anesthesia method: anesthesia POST PROCEDURE DETAILS: ? Procedure outcome: successful ?? Notable Events: no complications Buddy Morton M.D., M.S. ANESTHESIA ORDERABLES * CT Bone Biopsy (08/23/2023 3:46 PM CDT) Anatomical Region Laterality Modality Body, Musculoskeletal RST LO S, Abdominal RST LOS, Musculoskeletal ARZ LOS, Neuroradiology ARZ LOS, Vascular Interventional ARZ LOS, Procedure FLA LOS, Muskuloskeletal FLA LOS, Procedural, Procedural NWWI LOS Computed Tomography, C omputed Tomography Impressions 08/23/2023 4:[address]-guided biopsy of the extraosseous soft tissue adjacent to the left iliac bone. 2. CT-guided biopsy of the left iliac bone. EP Narrative 08/23/2023 4:18 PM CDT EXAM: CT BONE BIOPSY PRE-PROCEDURE: Patient seen, evaluated, history reviewed, and approved for sedation. Airway, heart, and lung exam satisfactory for sedation. Discussed risks, benefits, alternatives for procedure, and/or sedation. The roles and responsibilities of care team members, residents, and fellows were discussed. Patient understands information and questions answered. Informed consent obtained from the patient. Immediately prior to starting the procedure, in the presence of the assisting personnel, a procedural pause was conducted to verify correct patient identity and verification of procedure to be performed, and as applicable, correct side and site, correct patient position, availability of implants, special equipment, or special requirements, and all image and specimen identification data. INTRAPROCEDURE: Moderate sedation was administered by sedation nurse under my supervision. The patient was continuously monitored with real time oxygen saturation, heart rate, ECG rhythm strip and blood pressure throughout administration of the sedation and performance of the procedure. The total intra-procedural sedation time was: 33 minutes. TECHNIQUE: Sterile;1% lidocaine for local anesthesia and CT Guidance. Requested was posterior pelvic mass biopsy. Preprocedural imaging of outside MR pelvis 08/07/2023 demonstrates diffuse marrow replacement of the left pelvis, with prominent adjacent extraosseous soft tissue. Case was discussed with the ordering provider Dr. Jose Zhang [phone] who requested the extraosseous soft tissue to biopsy. The nodular area soft tissue demonstrated on MR pelvis 08/07/2023 (series 12 image 7) was selected, because of the prominent flow voids within the dominant component suggesting of encased vasculature (series 9 image 16). In talking with the patient, the patient was adamant that the iliac bone was to be biopsied. Therefore, both locations were biopsied. SITE #1 TARGET LOCATION: Extraosseous soft tissue nodule as seen on MR pelvis 08/07/2023 (series 12 image 7). TARGET LESION SIZE: Approximately 2.5 cm. BIOPSY INSTRUMENT: 17/18 gauge BioPince. NUMBER OF SAMPLES OBTAINED: 10. SITE #2 TARGET LOCATION: Marrow replacement of the left iliac bone. TARGET LESION SIZE: N/a BIOPSY INSTRUMENT: 11/13 gauge On Control. NUMBER OF SAMPLES OBTAINED: 4. COMPLICATION: None immediate. ? BLOOD LOSS: None. PATIENT INSTRUCTIONS: Patient may be dismissed from the radiology department when dismissal criteria met. 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 Procedure Note Ishmael Zavala M.D. - 08/23/2023 EXAM: CT BONE BIOPSY PRE-PROCEDURE: Patient seen, evaluated, history reviewed, and approved forsedation. Airway, heart, and lung exam satisfactory for sedation.Discussed risks, benefits, alternatives for procedure, and/or sedation.The roles and responsibilities of care team members, residents, and fellows were discussed. Patient understandsinformation and questions answered. Informed consent obtained from thepatient. Immediately prior to starting the procedure, in the presence ofthe assisting personnel, a procedural pause was conducted to verify correct patient identity and verificationof procedure to be performed, and as applicable, correct side and site,correct patient position, availability of implants, special equipment, orspecial requirements, and all image and specimen identification data. INTRAPROCEDURE: Moderate sedation was administered by sedation nurse undermy supervision. The patient was continuously monitored with real timeoxygen saturation, heart rate, ECG rhythm strip and blood pressurethroughout administration of the sedation and performance of the procedure. The total intra-procedural sedation timewas: 33 minutes. TECHNIQUE: Sterile;1% lidocaine for local anesthesia and CT Guidance.Requested was posterior pelvic mass biopsy. Preprocedural imaging ofoutside MR pelvis 08/07/2023 demonstrates diffuse marrow replacement of theleft pelvis, with prominent adjacent extraosseous soft tissue. Case was discussed with the ordering providerDr. Jose Zhang [phone] who requested the extraosseous soft tissue tobiopsy. The nodular area soft tissue demonstrated on MR pelvis 08/07/2023(series 12 image 7) was selected, because of the prominent flow voids within the dominant componentsuggesting of encased vasculature (series 9 image 16). In talking with thepatient, the patient was adamant that the iliac bone was to be biopsied.Therefore, both locations were biopsied. SITE #1 TARGET LOCATION: Extraosseous soft tissue nodule as seen on MR pelvis08/07/2023 (series 12 image 7). TARGET LESION SIZE: Approximately 2.5 cm. BIOPSY INSTRUMENT: 17/18 gauge BioPince. NUMBER OF SAMPLES OBTAINED: 10. SITE #2 TARGET LOCATION: Marrow replacement of the left iliac bone. TARGET LESION SIZE: N/a BIOPSY INSTRUMENT: 11/13 gauge On Control. NUMBER OF SAMPLES OBTAINED: 4. COMPLICATION: None immediate. BLOOD LOSS: None. PATIENT INSTRUCTIONS: Patient may be dismissed from the radiologydepartment when dismissal criteria met. POST-PROCEDURE DIAGNOSIS: Indeterminate marrow replacement of the leftiliac bone with prominent extra osseous soft tissue. IMPRESSION: 1. CT-guided biopsy of the extraosseous soft tissue adjacent to the leftiliac bone. 2. CT-guided biopsy of the left iliac bone. EP Jose Zhang M.D. [facility] PROCEDURES * (ABNORMAL) Cytology Fine Needle Aspiration (including core biopsies) (08/23/2023 2:58 PM CDT) (A) 1:09 PM CDT DTL Disclaimer This test was developed and its performance characteristics determined by [facility] in a manner consistent with CLIA requirements. This test has not been cleared or approved by the U.S. Food and Drug Administration. Test results for (IHC or ANNABEL) testing are valid for specimens fixed between 6 and 72 hours. ??Delay to fixation, under fixation or over fixation fall outside of guidelines and may affect these results. (A) 08/30/2023 1:09 PM CDT DTL Participated in the Interpretation Teresa Nicholas M.D., Ph.D. -Pathology Resident(A) 08/30/2023 1:09 PM CDT DTL Report electronically signed by Lyssa Salas M.D. I verify that I have examined all relevant slides/materials for the specimen(s) and rendered or confirmed the diagnosis. (A) 08/30/2023 1:09 PM CDT DTL Gross Description A: Received 10 alcohol-fixed smears and tissue. Additionally, received in formalin labeled with the patient's name, medical record number and pelvis, left, nodule are eight pale mcqueen softtissue cores and nine fragments, measuring 0.1 cm in average diameter and ranging from 0.1-1.2 cm in length. Specimens are submitteden toto in cassettes A1-A2, A1 containing four cores, A2 containing four cores and nine fragments. ??Grossed by MOM B: Received 3 alcohol-fixed smears and tissue. Additionally, received in formalin labeled with the patient's name, medical record number and bone, left iliac lesion are two pale mcqueen firm tissues consistent with bone and four fragments, measuring 0.2 cm in average diameter and ranging from 0.1-0.8 cm in length. ??The specimens are submitted en toto in cassette B1. The specimen was decalcified prior to processing. Additionally, received in the same container are multiple red-brown probable blood clot material, measuring 1.4 x 0.7 x 0.2 cm in aggregate. ??The specimens are submitted en toto in cassette B2. The specimen was not decalcified prior to processing. ??Grossed by [facility](A) 08/30/2023 1:09 PM CDT DTL Source A. Soft Tissue, Pelvis, Left, Nodule, fine needle aspiration B. Bone, Left iliac lesion, fine needle aspiration (A) 08/30/2023 1:09 PM CDT DTL Interpretation A. Soft Tissue, Pelvis, Left, Nodule, fine needle aspiration (smears/core biopsy): Positive for malignancy. Diffuse large B-cell lymphoma, not otherwise specified. Germinal center B-cell phenotype per the Kaden algorithm. BCL2-positive/MYC-nega tive by immunohistochemistry (not a double-expresser). Positive for a BCL2 gene rearrangement but negative for MYC and BCL6 gene rearrangements by interphase FISH (not a double-hit lymphoma). Immunoperoxidase studies were performed on paraffin sections of the soft tissue biopsy, block A1, using antibodies directed against the following antigens: CD3, CD10, CD20, BCL2, BCL6, MUM1 and MYC . ??Current cutoff values for positivity are: CD10, BCL6 and MUM1 greater than/equal to 30%; MYC greater than/equal to 40%; BCL2 greater than 50%. The neoplastic cells are positive for CD10, CD20, BCL2 (90%), BCL6 (80%), and are negative/beneath cut off for all other markers tested. FISH analysis for BLYM, soft tissue, pelvis, left, nodule ([id number]; block A1; 08/23/2023): ?? The result is abnormal and indicates a BCL2 rearrangement in 51% of nuclei. No rearrangement of MYC or BCL6 and no fusion of MYC and IGH was observed. See cytogenetic report for complete details. B. Bone, Left iliac lesion, fine needle aspiration (smears/core biopsy): Positive for malignancy. ??B-cell lymphoma, not further classifiable due to extensive crush artifact. Morphologically, there is trabecular bone in which the bone marrow is extensively replaced by an atypical lymphoid infiltrate with extensive accompanying fibrosis. ??The cell cytology cannot be discerned due to the crush artifact. Immunoperoxidase studies were performed on paraffin sections of the bone biopsy, block B1, using antibodies directed against the following antigens: CD3 and CD20. The neoplastic cells are diffusely [id number] and are negative for CD3.(A) 08/30/2023 1:09 PM CDT DTL Tissue (Pelvis, Left) 08/23/2023 2:58 PM CDT Biopsy (Bone) 08/23/2023 3:0 0 PM CDT Jose Zhang M.D. LAB SURG PATH DANIELLE LOYA [facility] [address] [place] [address], [facility] DTL [address] [place] [address] * B-cell Lymphoma, FISH, Tissue (08/23/2023 10:56 AM CDT) Result Summary Positive 08/30/2023 1:05 PM CDT DTL Disclaimer This test was developed and its performance characteristics determined by [facility] in a manner consistent with CLIA requirements. This test has not been cleared or approved by the U.S. Food and Drug Administration. This test is intended to be used as an adjunct to existing clinical and pathologic information and is not intended as a sole diagnostic or screening assay. Since only a portion of the tumor was evaluated, it is possible the result obtained may not represent the entire tumor population. Testing results are optimized for non-decalcified paraffin embedded specimens with a cold ischemia time of less than 1 hour, fixed in 10% neutral buffered formalin between 6 and 72 hours; results obtained from specimens fixed outside these parameters should be interpreted accordingly. This test does not rule out other chromosome or molecular abnormalities. 08/30/2023 1:05 PM CDT DTL Released By Lyssa Salas M.D. 08/30/2023 1:05 PM CDT DTL Result Table ----- Abnormality Name ? Result ?? Abn% Cutoff% 18q21(BCL2 sep) ? Abnormal 51 ?? <25.0 ?? 8q24.1(MYC sep) ? Normal ? <25.0 ?? t(8;14) MYC/IGH fusion ? Normal ? <15.0 ?? 3q27(BCL6 sep) ? Normal ? <25.0 ?? ----- 08/30/2023 1:05 PM CDT DTL Result nuc annabel(3'WLD9p5-8,5'B SZ9l7-5)(3'BCL2 con 5'NXH5v9-7)[51/100 ] 08/30/2023 1:05 PM CDT DTL Reason for Referral rule out [facility] 08/30/2023 1:05 PM CDT DTL Specimen Tissue, Slides, Formalin 08/30/2023 1:05 PM CDT DTL Source soft tissue, pelvis, left, nodule 08/30/2023 1:05 PM CDT DTL Tissue ID [id number] 08/30/2023 1:05 PM CDT DTL Method Locus and probes ?[Strategy;#Nucle i;Vendor] ----- 3q27(3'BCL6,5'BCL6 ) ?[BAP;100;AM] 8CEN(D8Z2),8q24.1( MYC),14q32(IGH) ?[DFISH;100;AM] 8q24.1(5'MYC,3'MYC ) ?[BAP;100;AM] 18q21(3'BCL2,5'BCL 2) ? [BAP;100;AM] Probe strategies include: DFISH=dual color, double fusion; BAP=break-apart probe. Scoring Method: Manual Probe vendors include: AM = [email or web address] ([place], [place]) 08/30/2023 1:05 PM CDT DTL Additional Information A portion of the testing process was performed at [facility] site [id number]. 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 No rearrangement of MYC or BCL6 and no fusion of MYC and IGH was observed. FISH studies interpreted in consultation with Arielle Pérez M.D. This test was ordered in the context of a [facility] pathology consultation/case (#[id number]), and this result should be interpreted within the context of the pathology consultation/repor t. 08/30/2023 1:05 PM CDT DTL Tissue 08/23/2023 10:5 6 AM CDT 08/28/2023 11:44 AM CDT Jose Zhang M.D. LAB GENETIC TESTIN G Performing Organization Address City/State/RUST Co de Phone Number [facility] [address] [place] [address], [facility] DT [address] [facility] [address] [place] [address] * ECG 12 Lead (08/22/2023 2:40 PM CDT) Ventricular Rate ECG/Min 117 BPM MUSE IL Interval 120 ms MUSE QRSD Interval 78 ms MUSE QT Interval 342 ms MUSE QTC Interval 477 ms MUSE P [place] 57 degrees MUSE R [place] 87 degrees MUSE T Wave [place] 40 degrees MUSE 08/22/2023 2:40 PM CDT 08/22/2023 3:24 PM CDT Impressions MUSE - 08/22/2023 2:53 PM CDT Sinus tachycardia Low anterior forces Nonspecific T wave abnormality No previous ECGs available Reviewed by ALEX Barclay Narrative Procedure Note Mario Garcia M.D. - 08/22/2023 IMPRESSION: Sinus tachycardia Low anterior forces Nonspecific T wave abnormality No previous ECGs available Reviewed by ALEX Barclay Kendra Garcia M.D. ECG ORDERABLES MUSE NA * CT Neck Larynx with IV Contrast (08/22/2023 1:07 PM CDT) Anatomical Region Laterality Modality Neck, Neuroradiology RST LOS , Neuroradiology ARZ LOS, Neuroradiology FLA LOS N/A Computed Tomography, Compute d Tomography 08/23/2023 9:22 AM CDT Impressions 08/22/2023 2:54 PM CDT No clear abnormality identified within the larynx, however adduction of the vocal cords limits evaluation of the larynx. Narrative 08/22/2023 2:54 PM CDT EXAM: CT NECK LARYNX WITH IV CONTRAST COMPARISON: None. FINDINGS: CT of the neck performed with special cuts through the larynx. Imaging acquisition was performed with the larynx fully adducted which limits sensitivity of detection for small submucosal tumors. No clear mass is identified. No evidence for deeper extension of tumor or infiltration within the adjacent fat planes. There is relative narrowing of the supraglottic airway which may be due to underlying adduction of the focal folds or due to mild edema. No evidence for cervical lymphadenopathy. Mildly prominent 6 mm right paratracheal lymph node, presumably reactive. The parotid and some mandibular glands are normal. Normal evaluation through the thyroid. Dominant left vertebral artery. Visualized intracranial contents are normal. Mucous retention cyst left maxillary sinus. Nothing for osseous metastatic disease. Moderate cervical spondylosis which is greatest at C6-7. Kendra Garcia M.D. IMG CT PROCEDURES * (ABNORMAL) CRP (C-Reactive Protein) (08/22/2023 8:49 AM CDT) C-Reactive Protein (CRP), S 12.6(H) <5.0 mg/L 08/22/2023 9:51 AM CDT DTL Blood (Blood, Venous) 08/22/2023 8:49 AM CDT 08/22/2023 9:25 AM CDT Jose Zhang M.D. LAB BLOOD ADD-ON [facility] [address] [place] [address], [facility] [address] [place] [address] * Immunoglobulin Free Light Chains (08/22/2023 8:48 AM CDT) Morley Free Light Chain, S 1.76 0.3300 - 1.94 mg/dL 08/22/2023 1:34 PM CDT SDSC Lambda Free Light Chain, S 1.97 0.5700 - 2.63 mg/dL 08/22/2023 1:35 PM CDT [facility] Morley/Lambda FLC Ratio 0.8934 0.2600 - 1.65 08/22/2023 1:35 PM CDT [facility] Blood (Blood, Venous) 08/22/2023 8:48 AM CDT 08/22/2023 1:04 PM CDT Jose Zhang M.D. LAB BLOOD ADD-ON [facility] [address] [place] [address] [facility] [address] [place] [address] * Sedimentation Rate (08/22/2023 8:48 AM CDT) Sedimentation Rate, B 16 2 - 22 mm/h 08/22/2023 11:23 AM CDT DTL Blood (Blood, Venous) 08/22/2023 8:48 AM CDT 08/22/2023 9:14 AM CDT Jose Zhang M.D. LAB BLOOD ADD-ON [facility] [address] [place] [address], [place] DTL [facility] [address] [place] [address] from Last 3 Months Additional Health Concerns Infection Onset Date Last Indicated Protective Environment 09/19/2023 Care Teams Carbon Dioxide Operator Relationship Specialty Start Date End Date Elsewhere, Pcp PCP - General Internal Medicine 08/21/23
--- OUTSIDE RECORDS SUMMARY | 2023-11-20 19:20 | XMS_ITS | Encounter Summary ---
Author Organization [facility] Address [address] [place] [address] Care Team Providers Care Insole Taper Name Role Phone Jessica Rivas MD Primary Care Provider [phone] Encounter Details Date Type Department Care Team (Late st Contact Info) Description 04/27/2015 Correspondence External to External, [place] [address] [employer] [facility] [employer] Social History Tobacco Use Types Packs/Day Years [...] R/O COVID19 04/06/2021 04/06/2021 04/07/2021 5:46 AM MANAGER CARDIOLOGY documented as of this encounter Care Teams Insole Taper Relationship Specialty Start Date End Date Jessica Rivas MD [address] [place] [address] PCP - General Family Practice 05/10/11 documented as of this encounter
--- OUTSIDE RECORDS SUMMARY | 2023-11-20 19:20 | XMS_ITS | Encounter Summary ---
Author Organization [place] Address [address] [place] [id number] Care Team Providers Care Automobile Appraiser Name Role Phone Deisi Guillen MD Primary Care Provider + [facility] Sarah Germanfield Primary Care Provider Umberto Mauricio Primary Care Provider [phone] Asad Coreas MD Unavailable [phone] [facility] Unavailabl e Reason for Visit * Reason Onset Date Comments MH/CD Inpatient 06/22/2016 Encounter Details Date Type Department Care Team ([facility] st Contact Info) Description 06/22/[address] [facility] Behavioral Health Intake [address] [place] [address] [phone] Generic, Behavioral Intake, MH/CD Inpatient Social History Tobacco Use Types Packs/Day Years [...] encounter Miscellaneous Notes * Telephone Encounter - Marleny Carranza - 06/22/2016 10:40 PM CDT S: pt is a 45 yr old fem in [facility] ED for psychosis report by Aydee Chauhan: Auriculotherapist reports hx of MDD w/ psychosis. Family reports increasing paranoia. Pt reports people are watching them and listening to them. Pt reports people are listening through the TV. reports pt does not believe he is working and that he is bringing home is time sheets. Pt reports SI w/ no plan or intent. A: vol R: pt is d/c home documented in this encounter Plan of Treatment Not on file documented as of this encounter Visit Diagnoses Not on filedocumented in this encounter Additional Health Concerns Infection Onset Date Last Indicated Resolved Time Rule Out COVID-19 Comment:Negative per lab 3..20 04/30/2019 04/30/2019 020 7:13 PM CDT Rule Out COVID-19 05/22/2021 05/22/2021 05/23/2021 12:28 AM CDT documented as of this encounter Care Teams Automobile Appraiser Relationship Specialty Start Date End Date Deisi Guillen MD [facility] [address] [place] [address] PCP - General Family Practice 01/24/16 06/22/18 [facility] [address] [place] [address] PCP - General 06/23/18 04/28/19 Umberto Mauricio [address] [place] [address] PCP - General Family Practice 04/29/19 [place] [address] [place] [address] Assigned PCP 05/05/21 10/28/21 [facility] [address] [place] [address] Assigned PCP 03/08/23 documented as of this encounter
--- OUTSIDE RECORDS SUMMARY | 2023-11-20 19:20 | XMS_ITS | Encounter Summary ---
Author Organization [facility] Address [address] [place] [address] Care Team Providers Care Tape Calender Name Role Phone Jessica Rivas MD Primary Care Provider [phone] Encounter Details Date Type Department Care Team (Latest Contact Info) Description 04/07/1998 Orders Only Anila, Radha Flatwork Presser Social History Tobacco Use Types Packs/Day Years [...] R/O COVID19 04/06/2021 04/06/2021 04/07/2021 5:46 AM CERTIFIED SURGICAL TECH/FIRST ASSISTANT documented as of this encounter Care Teams Tape Calender Relationship Specialty Start Date End Date Jessica Rivas MD [address] [place] [address] PCP - General Family Practice 05/10/11 documented as of this encounter
--- OUTSIDE RECORDS SUMMARY | 2023-11-20 19:21 | XMS_ITS | Encounter Summary ---
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 200 [place] [address] [address] [place] [address] [place] [phone] Referral ID Status Reason Start Date Expiration Date V isits Requested Visits Authorized [id number] Authorized 09/18/2023 09/18/2024 1 99 Encounter Details Date Type Department Care Team (Latest Contact Info) Description 11/09/2023 7:00 AM CDT - 11/09/2023 11:59 PM CDT Hospital Encounter Department of Laboratory Medicine and Pathology, [facility], in [place], [place] [address] [place] [phone] Eric Renner M.D. 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 I have a [facility] place to live 08/15/2023 Sex and Gender Information Value Date Recorded Sex Assigned at Female 08/15/2023 7:51 AM CDT Gender Identity Female 08/15/2023 7:51 AM CDT Sexual Orientation Straight 08/15/2023 7: 51 AM CDT documented as of this encounter Medications at Time of Discharge Medication Sig Dispensed Refills Start Date End Date acetaminophen (TylenoL) 500 mg tablet Take 2 tablets (1,000 mg total) by mouth every 6 (six) hours as needed for pain. Please do not take more than 4,000 mg in 24 hours. 08/31/2023 atorvastatin (Lipitor) 80 mg tablet Take 80 mg by mouth daily. 06/03/2022 blood sugar diagnostic strips (Blood Glucose Test Strips) daily. 09/01/2014 budesonide-formoter oL (Symbicort) 160-4.5 mcg/actuation inhaler Inhale 2 puffs 2 (two) times a day. 10/05/2021 buPROPion (Wellbutrin SR) 100 mg 12 hr tablet Take 1 tablet by mouth daily. gabapentin (NEURONTIN) 600 mg tablet Take 600 mg by mouth 3 (three) times a day. 05/11/2022 hydrOXYzine (Atarax) 50 mg tablet Take 50-100 mg by mouth at bedtime as needed for anxiety (sleep). 08/12/2023 ipratropium-albuter oL (DUONEB) 0.5-2.5 mg/3 mL nebulizer solution INHALE 1 VIAL BY MOUTH VIA NEBULIZER EVERY 6 HOURS NEEDED FOR SHORTNESS OF BREATH 05/09/2022 lancets 30 gauge misc Use once daily as directed. Pharmacy dispense brand based on insurance. 04/25/2013 lidocaine viscous (Xylocaine) 2 % mucosal solution MIX 5 ML OF LIDOCAINE, ANTACID SUSPENSION, AND DIPHENHYDRAMINE LIQUID AND TAKE BY MOUTH FOUR TIMES A DAY AFTER MEALS AND AT BEDTIME. HOLD IN MOUTH FOR 1 MINUTE. DO NOT EAT OR DRINK FOR 15 TO 30 MINUTES AFTER USE 100 mL 2 10/17/2023 metFORMIN (Glucophage) 500 mg tablet Take 1,000 mg by mouth 2 (two) times a day with meals. 12/14/2022 Mounjaro 5 mg/0.5 mL pen injector injection 08/21/2023 nebulizer accessories kit Nebulizer, disposable neb kit x 4, reuseable neb kit x 1, mask x 1, filters x 1. Frequency of use: every 6 hours as needed; Medication: Albuterol or Duoneb. Length of need: 99 months 01/11/2022 omeprazole (PriLOSEC) [address] capsule Take 1 capsule (40 mg total) by mouth daily before morning meal. 30 capsule 2 08/31/2023 11/29/2023 ondansetron (Zofran) 8 mg tabletIndications:D iffuse Large B Cell Lymphoma Lymph Nodes Of Multiple Sites (HCC) Take 1 tablet (8 mg total) by mouth every 8 (eight) hours as needed for nausea or vomiting (unrelieved by prochlorperazine). 30 tablet 3 09/27/2023 09/26/2024 prochlorperazine (Compazine) 10 mg tabletIndications:D iffuse Large B Cell Lymphoma Lymph Nodes Of Multiple Sites (HCC) Take 1 tablet (10 mg total) by mouth every 6 (six) hours as needed for nausea or vomiting. 30 tablet 3 09/27/2023 09/26/2024 QUEtiapine (SEROqueL) 200 mg tablet Take 200 mg by mouth at bedtime as needed. Dosen't take regularly due to drowsiness 07/12/2023 SUMAtriptan (IMITREX) 100 mg tablet GIVE AT MINIMUM 2 HOURS APART. MAXIMUM DOSE OF 200 MG PER 24 HOURS. 06/03/2022 Ventolin HFA 90 mcg/actuation inhaler INHALE 1 TO 2 PUFFS BY MOUTH EVERY 4 HOURS NEEDED FOR WHEEZING 1ST CHOICE 06/05/2022 predniSONE (Deltasone) 50 mg tabletIndications:D iffuse Large B Cell Lymphoma Lymph Nodes Of Multiple Sites (HCC) Take 2 tablets (100 mg total) by mouth daily for 5 doses. Days 1 through 5 of each cycle. (Prior to chemotherapy if a chemo day) 10 tablet 11/09/2023 11/14/2023 documented as of this encounter Plan of Treatment Upcoming Encounters Date Type Department Care Team (Latest Contact Info) Description 11/28/2023 2:15 PM CDT Office Visit Department of Otorhinolaryngology in [place], [place] [address] [place] [phone] Kendra Garcia M.D. [address] [place] [phone] 11/29/2023 7:45 AM CDT Clinical Communication Virtual Review in [place], [place] 200 [place] [phone] 11/30/2023 7:00 AM CDT Appointment Department of Laboratory Medicine and Pathology, [facility] in [place], [place] [address] [place] [phone] Eric Renner M.D. [address] [place] [phone] 11/30/2023 9:00 AM CDT Office Visit Division of Hematology in [place], [place] [address] [place] [phone] Aníbal Reece APRN, C.N.P., M.S.N. [address] [place] [phone] 11/30/2023 12:15 PM CDT Infusion Department of Oncology in [place], [place] [address] [place] [phone] Eric Renner M.D. [address] [place] [phone] 12/20/2023 7:45 AM TRANSMISSION SUPERINTENDENT Clinical Communication Virtual Review in [place], [place] [address] [place] [phone] 12/21/2023 7:00 AM TRANSMISSION SUPERINTENDENT Appointment Department of Laboratory Medicine and Pathology, [facility], in [place], [place] [address] [place] [phone] Eric Renner M.D. [address] [place] [phone] 12/21/2023 9:00 AM TRANSMISSION SUPERINTENDENT Office Visit Division of Hematology in [place], [place] [address] [place] [phone] Zulma Hickey APRN, C.N.P., M.S.N. [address] [place] [phone] 12/21/2023 10:00 AM TRANSMISSION SUPERINTENDENT Infusion Department of Oncology in [place], [place] [address] [place] [phone] Eric Renner M.D. [address] [place] [phone] 01/11/2024 7:00 AM TRANSMISSION SUPERINTENDENT Appointment Department of Laboratory Medicine and Pathology, [facility] in [place], [place] [address] [place] [phone] Eric Renner M.D. [address] [place] [phone] 01/11/2024 9:00 AM TRANSMISSION SUPERINTENDENT Office Visit Division of Hematology in [place], [place] [address] [place] [phone] Susu Cameron M.D. [address] [place] [phone] 01/11/2024 10:15 AM TRANSMISSION SUPERINTENDENT Infusion Department of Oncology in [place], [place] [address] [place] [phone] Eric Renner M.D. [address] [place] [phone] 01/14/2024 9:15 AM TRANSMISSION SUPERINTENDENT Diagnostic Department of Otorhinolaryngology in [place], [place] [address] [place] [phone] Eric Renenr M.D. [address] [place] [phone] Wendy Moon Au.D., C.C.C.-A [address] [place] [phone] 01/14/2024 1:00 PM TRANSMISSION SUPERINTENDENT Diagnostic Department of Otorhinolaryngology in [place], [place] [address] [place] [phone] Eric Renner M.D. [address] [place] [phone] Osiel Middleton Au.D. [address] [place] [phone] 01/14/2024 4:00 PM TRANSMISSION SUPERINTENDENT Clinical Support Department of Otorhinolaryngology in [place], [place] [address] [place] [phone] Eric Renner M.D. 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 LAB BLOOD ADD-ON [facility] [address] [place] [address], [facility] DTL [facility] 200 [place] [address] * (ABNORMAL) CBC with Differential, Blood (11/09/2023 7:13 AM CDT) Hemoglobin 13.7 11.6 - 15.0 g/dL 11/09/2023 7:45 AM CDT DTL Hematocrit 41.5 35.5 - 44.9 % 11/09/2023 7:45 AM CDT DTL Erythrocytes 4.29 3.92 - 5.13 x10(12)/L 11/09/2023 7:45 AM CDT DTL MCV 96.7 78.2 - 97.9 fL 11/09/2023 7:45 AM CDT DTL RBC Distrib Width 15.2 12.2 - 16.1 % 11/09/2023 7:45 AM CDT DTL Platelet Count 282 157 - 371 x10(9)/L 11/09/2023 7:45 AM CDT DTL Leukocytes 9.0 3.4 - 9.6 x10(9)/L 11/09/2023 7:45 AM CDT DTL Neutrophils 6.96(H) 1.56 - 6.45 x10(9)/L 11/09/2023 7:45 AM CDT DHPM Lymphocytes 0.90(L) 0.95 - 3.07 x10(9)/L 11/09/2023 7:45 AM CDT DTL Monocytes 1.01(H) 0.26 - 0.81 x10(9)/L 11/09/2023 7:45 AM CDT DTL Eosinophils <0.03 0.03 - 0.48 x10(9)/L 11/09/2023 7:45 AM CDT DTL Basophils 0.07 0.01 - 0.08 x10(9)/L 11/09/2023 7:45 AM CDT DTL Blood (Blood, Venous) 11/09/2023 7:13 AM CDT 11/09/2023 7:36 AM CDT Eric Monzon M.D. 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
--- OUTSIDE RECORDS SUMMARY | 2023-11-20 19:21 | XMS_ITS | Encounter Summary ---
Author Organization [facility] Address [address] [place] [address] Care Team Providers Care Learning Specialist Name Role Phone Elsewhere, Pcp Primary Care Provider Unavailabl e Encounter Details Date Type Department Care Team (Late st Contact Info) Description 11/14/2023 Orders Only Division of Hematology in [place], [place] [address] [place] [phone] External, Ordering Provider, Alonzo Social History Tobacco Use Types Packs/Day Years Used Date Smoking Tobacco: Every Day Cigarettes 1.5 81.8 Started: 02/12/1982 Smokeless Tobacco: Never Alcohol Use Standard Drinks/Week Comments Not Currently 0 (1 standard drink = 0.6 oz pur e alcohol) rarely [facility] Utilities Answer Date Recorded In the past [...] money to buy more. Never true 08/15/19 24 Within the past 12 months, t he [...] Answer Date Recorded Employment status Unemployed/not in [employer] paid workforce but seeking employment 08/15/2023 Housing Stability Answer Date Recorded What is your living situation today? I have a [facility] place to live 08/15/2023 Sex and Gender Information Value Date Recorded Sex Assigned at Female 08/15/2023 7:51 AM CDT Gender Identity Female 08/15/2023 7:51 AM CDT Sexual Orientation Straight 08/15/2023 7: 51 AM CDT documented as of this encounter Plan of Treatment Upcoming Encounters Date Type Department Care Team (Latest Contact Info) Description 11/28/2023 2:15 PM CDT Office Visit Department of Otorhinolaryngology in [place], [place] [address] [place] [phone] Kendra Garcia M.D. [address] [place] [phone] 11/29/2023 7:45 AM CDT Clinical Communication Virtual Review in [place], [place] [address] [place] [phone] 11/30/2023 7:00 AM CDT Appointment Department of Laboratory Medicine and Pathology, [facility], in [place], [place] [address] [place] [phone] Eric Renner M.D. [address] [place] [phone] 11/30/2023 9:00 AM CDT Office Visit Division of Hematology in [place], [place] [address] [place] [phone] Aníbal Reece APRN, C.N.Ad., M.S.N. [address] [place] [phone] 11/30/2023 12:15 PM CDT Infusion Department of Oncology in [place], [place] [address] [place] [phone] Eric Renner M.D. [address] [place] [phone] 12/20/2023 7:45 AM CRANBERRY SORTER Clinical Communication Virtual Review in [place], [place] [address] [place] [phone] 12/21/2023 7:00 AM CRANBERRY SORTER Appointment Department of Laboratory Medicine and Pathology, [facility] in [place], [place] [address] [place] [phone] Eric Renner M.D. [address] [place] [phone] 12/21/2023 9:00 AM CRANBERRY SORTER Office Visit Division of Hematology in [place], [place] [address] [place] [phone] Zulma Hickey APRN, C.NMaggi., M.S.N. [address] [place] [phone] 12/21/2023 10:00 AM CRANBERRY SORTER Infusion Department of Oncology in [place], [place] [address] [place] [phone] Eric Renner M.D. [address] [place] [phone] 01/11/2024 7:00 AM CRANBERRY SORTER Appointment Department of Laboratory Medicine and Pathology, [facility] in [place], [place] [address] [place] [phone] Eric Renner M.D. [address] [place] [address] 01/11/2024 9:00 AM CRANBERRY SORTER Office Visit Division of Hematology in [place], [place] [address] [place] [phone] Susu Cameron M.D. [address] [place] [phone] 01/11/2024 10:15 AM CRANBERRY SORTER Infusion Department of Oncology in [place], [place] [address] [place] [phone] Eric Renner M.D. [address] [place] [phone] 01/14/2024 9:15 AM CRANBERRY SORTER Diagnostic Department of Otorhinolaryngology in [place], [place] [address] [place] [address] Eric Renner M.D. [address] [place] [phone] Wendy Moon Au.D., C.C.CJacquelin-A [address] [place] [phone] 01/14/2024 1:00 PM CRANBERRY SORTER Diagnostic Department of Otorhinolaryngology in [place], [place] [address] [place] [phone] Eric Renner M.D. [address] [place] [phone] Osiel Middleton Au.D. [address] [place] [phone] 01/14/2024 4:00 PM CRANBERRY SORTER Clinical Support Department of Otorhinolaryngology in [place], [place] [address] [place] [phone] Eric Renner M.D. [address] [place] [phone] Taj Nicolas P.T. [address] [place] [phone] documented as of this encounter Procedures Procedure Name Priority Date/Time Associated Diagnosis Comments CBC WITH DIFFERENTIAL, B Routine 11/14/2023 10:00 AM CDT documented in this encounter Results * CBC with Differential, Blood (11/14/2023 10:00 AM CDT) EXT Leukocytes 5.80 4.50 - 11.00 K/uL [facility] EXT RBC 4.09 4.00 - 5.20 m/uL [facility] EXT Hemoglobin 13.0 12.0 - 16.0 gm/dL [facility] EXT Hematocrit 39.1 33.0 - 51.0 % [facility] EXT MCV 96 80 - [address] [facility] EXT Platelet Count 219 140 - 440 K/uL [facility] EXT Neutrophils 4.80 1.7 - 7.0 K/uL [facility] EXT Lymphocytes 0.90 0.90 - 2.90 K/uL [facility] EXT Monocytes 0.10 0.00 - 0.90 K/UL [facility] EXT Eosinophils 0.07 0.00 - 0.50 K/uL [facility] EXT Basophils 0.02 0.00 - 0.30 K/uL [facility] 11/14/2023 10:[address] [facility] - 11/14/2023 2:19 PM CDT External results verified in Extract by Zulma Ray on 11/14/2023 at 02:10 PM. Virgil Ordering Provider Gonzales Rosado LAB BLOO D ADD-ON [facility] [address] [place] [address] documented in this encounter Visit Diagnoses Not on filedocumented in this encounter Additional Health Concerns Infection Onset Date Last Indicated Resolved Time Protective Environment 09/19/2023 09/19/2023 documented as of this encounter Care Teams Learning Specialist Relationship Specialty Start Date End Date Elsewhere, Pcp PCP - General Internal Medicine 08/21/23 documented as of this encounter
--- OUTSIDE RECORDS SUMMARY | 2023-11-20 19:21 | XMS_ITS ---
Author Organization [facility] Address [address] [place] [address] Care Team Providers Care Nanosystems Engineer Name Role Phone Unavailable Unavailable Unavailable Surgery Details Not on file Complications Check Surgery Details section. Procedure Estimated Blood Loss Check Surgery Details section. Procedure Findings Check Surgery Details section. Procedure Specimens Taken Check Surgery Details section.
--- OUTSIDE RECORDS SUMMARY | 2023-11-20 19:21 | XMS_ITS | Referral Summary ---
Author Organization [facility] Address [address] [place] [id number] Care Team Providers Care Aws Architect Name Role Phone Elsewhere, Pcp Primary Care Provider Unavailabl e Source Comments Patient records contain information from all sites at [facility]. For routine questions regarding patient records, call [phone] during business hours, M-F 8:00 AM - 5:00 PM Central Time. Record requests for emergency care only can be directed to [phone] at any time.[facility] Encounters Date Type Department Care Team Description 11/15/2023 Clinical Communication Division of Hematology in [place], [place] [address] [place] [phone] Eric Renner M.D. Results 11/14/2023 Orders Only Division of Hematology in [place], [place] [address] [place] [phone] External, Ordering Provider, Alonzo 11/09/2023 Orders Only [facility] [address] [place] [phone] Carmen Hudson, Pharm.D., R.Ph. 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) 11/09/2023 10:15 AM CDT Infusion Department of Oncology in [place], [place] [address] [place] [phone] Eric Renner M.D. 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) (Primary Dx) 11/09/2023 7:00 AM CDT - 11/09/2023 11:59 PM CDT Hospital Encounter Department of Laboratory Medicine and Pathology, [facility], in [place], [place] [address] [place] [phone] Eric Renner M.D. 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) Discharge Disposition: Home or Self Care 11/09/2023 9:00 AM CDT Office Visit Division of Hematology in [place], [place] [address] [place] [phone] Eric Renner M.D. 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) 11/08/2023 1:51 PM CDT - 11/08/2023 11:59 PM CDT Hospital Encounter Department of Radiology, [facility] in [place], [place] [address] [place] [phone] Eric Renner M.D. 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) Discharge Disposition: Home or Self Care 11/07/2023 10:00 AM CDT Clinical Communication Virtual Review in [place], [place] 200 [place] [address] Previsit Preparation (TAMRA DD) 11/02/2023 Clinical Communication Division of Hematology in [address] [address] Eric Renner M.D. Results 11/01/2023 Orders Only Division of Hematology in [address] [phone] Gonzales, Dany Asif M.D. 11/01/2023 Clinical Communication Division of Hematology in [place], [place] [address] [place] [phone] Eric Renner M.D. Results 10/23/2023 Orders Only Division of Hematology in [address] [phone] Eric Renner M.D. 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) (Primary Dx) 10/22/2023 Clinical Communication Division of Hematology in [place], [place] [address] [place] [phone] Eric Renner M.D. Rst hem lymph chemo 10/19/2023 7:30 AM CDT Infusion Department of Oncology in [address] [phone] Eric Renner M.D. 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) (Primary Dx) 10/17/2023 Orders Only [facility] [address] [place] [phone] Sal Keen, PharmJacquelinD., R.Ph. 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) 10/17/2023 Refill Division of Hematology in [address] [address] Eric Renner M.D. Med Refill 10/17/2023 Orders Only [facility] [address] [place] [phone] Ahmet Martinez, Milton, R.Ph. 10/17/2023 11:30 AM CDT Office Visit Division of Hematology in [address] [phone] Eric Renner M.D. Vertigo Benign Paroxysmal Positional Bilateral (Primary Dx); 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) 10/17/2023 9:30 AM CDT - 10/17/2023 11:59 PM CDT Hospital Encounter Department of Laboratory Medicine and Pathology, [facility], in [place], [place] [address] [place] [phone] Eric Renner M.D. 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) (Primary Dx) Discharge Disposition: Home or Self Care 10/16/2023 8:00 AM CDT Clinical Communication Virtual Review in [address] [phone] 10/11/2023 Clinical Communication Division of Hematology in [place], [place] [address] [place] [phone] Eliza Collins M.D. External Lab Entry 09/28/2023 Clinical Communication Division of Hematology in [place], [place] [address] [place] [phone] Eric Renner M.D. FORM/total and permanent disability loan program 09/28/2023 9:40 AM CDT Office Visit Department of Oncology in [place], [place] [address] [place] [phone] Marina Rosario APRN, C.N.P., M.S.N. Marjan Bourgeois, R.N., O.C.N. 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) (Primary Dx) 09/28/2023 Clinical Communication Division of Hematology in [place], [place] [address] [place] [phone] Eric Renner M.D. Rst hem lymph chemo 09/28/2023 7:30 AM CDT Infusion Department of Oncology in [place], [place] [address] [place] [phone] Eric Renner M.D. 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) (Primary Dx) 09/27/2023 Clinical Communication Division of Hematology in [place], [place] [address] [place] [phone] Yennifer Montoya PharmJacquelinD., R.Ph., BCOP 09/27/2023 9:57 AM CDT - 09/27/2023 11:59 PM CDT Hospital Encounter Department of Laboratory Medicine and Pathology, [facility], in [place], [place] [address] [place] [phone] Eric Renner M.D. 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) Discharge Disposition: Home or Self Care 09/27/2023 11:00 AM CDT Education Division of Hematology in [address] [phone] Eric Renner M.D. Kimball, Valerie M RJacquelinN. 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) 09/27/2023 1:30 PM CDT Office Visit Division of Hematology in [place], [place] [address] [place] [phone] Eric Renner M.D. 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) (Primary Dx) 09/26/2023 10:00 AM CDT Admin Visit Department of Oncology in [place], [place] [address] [place] [phone] Yennifer Montoya, Pharm.D., R.Ph., BCOP 09/20/2023 Clinical Communication Division of Hematology in [place], [place] [address] [place] [phone] Eric Renner M.D. Med Question 09/18/2023 Clinical Communication Division of Hematology in [place], [place] [address] [place] [phone] Eric Renner M.D. NEW HEM LYMPH CHEMO 09/18/2023 Orders Only Division of Hematology in [place], [place] [address] [place] [phone] Eric Renner M.D. 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) (Primary Dx) 09/14/2023 2:00 PM CDT Ancillary Procedure Department of Otorhinolaryngology 09/14/2023 2:00 AM CDT Ancillary Procedure Department of Otorhinolaryngology 09/14/2023 Clinical Communication Division of Hematology in [place], [place] [address] [place] [phone] Eric Renner M.D. MARY/FORMS 09/14/2023 Clinical Communication Division of Hematology in [place], [place] [address] [place] [phone] Eric Renner M.D. Med Question 09/14/2023 8:15 AM CDT - 09/14/2023 11:59 PM CDT Hospital Encounter Department of Radiology, [facility], in [place], [place] [address] [place] [phone] Eric Renner M.D. Diffuse Large B Cell Lymphoma Unspecified Site (HCC) Discharge Disposition: Home or Self Care 09/14/2023 6:13 AM CDT - 09/14/2023 8:14 AM CDT Hospital Encounter Department of Cardiovascular Diseases in [place], [place] [address] [place] [phone] Eric Renner M.D. Diffuse Large B Cell Lymphoma Unspecified Site (HCC) Discharge Disposition: Home or Self Care 09/14/2023 2:30 PM CDT Clinical Support Department of Otorhinolaryngology in [address] [phone] Kendra Garcia M.D. Rigelman, Lindsay A, M.A., [facility] [employer] Polyp Of Vocal Cord And Larynx 09/12/2023 Orders Only Division of Hematology in [address] [phone] Eric Renner M.D. 09/12/2023 Clinical Communication Division of Hematology in [address] [phone] Eric Renner M.D. Echo Scheduling 09/11/2023 Clinical Communication Division of Hematology in [place], [place] [address] [place] [phone] Eric Renner M.D. MARY/FORMS 09/11/2023 2:34 PM CDT - 09/11/2023 11:59 PM CDT Hospital Encounter Department of Laboratory Medicine and Pathology, [facility], in [place], [place] [address] [place] [phone] Eric Renner M.D. Diffuse Large B Cell Lymphoma Unspecified Site (HCC) Discharge Disposition: Home or Self Care 09/11/2023 2:30 PM CDT - 09/11/2023 2:33 PM CDT Hospital Encounter Department of Laboratory Medicine and Pathology, [facility], in [place], [place] [address] [place] [phone] Eric Renner M.D. Diffuse Large B Cell Lymphoma Unspecified Site (HCC) Discharge Disposition: Home or Self Care 09/11/2023 1:00 PM CDT Comprehensive Visit Division of Hematology in [place], [place] [address] [place] [phone] Eric Renner M.D. Diffuse Large B Cell Lymphoma Unspecified Site (HCC) 08/31/2023 9:15 PM CDT Ancillary Procedure Department of General Surgery 08/31/2023 2:29 PM CDT Anesthesia Event [facility] OR [address] [place] [phone] Sugey Underwood M.D., Ph.D. Dereje Hill, AR MANAGER, [facility], [facility] 08/31/2023 12:38 PM CDT - 08/31/2023 2:45 PM CDT Surgery [facility] OR [address] [place] [phone] Larry Moore M.D. MICROSCOPIC DIRECT LARYNGOSCOPY WITH CARBON DIOXIDE LASER, biopsy, 08/31/2023 8:22 AM CDT - 08/31/2023 5:05 PM CDT Hospital Encounter [facility] [address] [place] [phone] Ghulam Horowitz M.D. Polyp Of Vocal Cord And Larynx Discharge Disposition: Home or Self Care 08/30/2023 Documentation Department of Orthopedic Surgery in [place], [place] [address] [place] [phone] Jose Zhang M.D. 08/30/2023 Orders Only Department of Orthopedic Surgery in [place], [place] [address] [place] [phone] Jose Zhang M.D. Diffuse Large B Cell Lymphoma Unspecified Site (HCC) (Primary Dx) 08/24/2023 Clinical Communication Department of Radiology, [facility] in [place], [place] [address] [place] [phone] Ishmael Zavala M.D. Follow-up (Post procedure call) 08/23/2023 12:27 PM CDT - 08/23/2023 5:28 PM CDT Hospital Encounter Department of Radiology, [facility] in [place], [place] [address] [place] [phone] Jose Zhang M.D. Tumor Bone Discharge Disposition: Home or Self Care 08/23/2023 9:00 AM CDT Comprehensive Visit Department of Orthopedic Surgery in [address] [phone] Jose Zhang M.D. Tumor Bone 08/22/2023 12:08 PM CDT - 08/22/2023 11:59 PM CDT Hospital Encounter Department of Radiology, [facility] in [place], [place] [address] [place] [phone] Kendra Garcia M.D. Polyp Of Vocal Cord And Larynx Discharge Disposition: Home or Self Care 08/22/2023 2:00 PM CDT Ancillary Procedure Department of Otorhinolaryngology 08/22/2023 8:21 AM CDT - 08/22/2023 12:07 PM CDT Hospital Encounter Department of Laboratory Medicine and Pathology, [facility] in [place], [place] [address] [place] [phone] Jose Zhang M.D. Tumor Bone Discharge Disposition: Home or Self Care 08/22/2023 10:00 AM CDT Comprehensive Visit Department of Otorhinolaryngology in [address] [phone] Caridad Cardozo, Ph.D. Polyp Of Vocal Cord And Larynx (Primary Dx) 08/22/2023 9:30 AM CDT Comprehensive Visit Department of Otorhinolaryngology in [address] [phone] Kendra Garcia M.D. Polyp Of Vocal Cord And Larynx 08/21/2023 Clinical Communication Department of Otorhinolaryngology in [place], [place] [address] [place] [address] Kendra Garcia M.D. 08/21/2023 8:30 AM CDT Clinical Communication Virtual Review in [place], [place] 200 [place] [address] Pre-visit Intake from Last 3 Months Allergies No known active allergies Medications Medication [...] Polyp Of Vocal Cord And Larynx 08/22/2023 Social History Tobacco Use Types Packs/Day Years Used Date Smoking Tobacco: Every Day Cigarettes 1.5 81.8 Started: 02/12/1982 Smokeless Tobacco: Never Tobacco Cessation:Ready to Q uit: Not Asked; Counseling Given: Not Answered Alcohol Use Standard Drinks/Week Comments Not Currently 0 (1 standard drink = 0.6 oz pur e alcohol) rarely [facility] Utilities Answer Date Recorded In the past 12 months has e [employer], gas, oil, or water [employer] threatened to shut off services in your [...] your living situation today? I have a [facility] place to live 08/15/2023 Sex and [...] CDT Office Visit Department of Otorhinolaryngology in [place], [place] [address] [place] [phone] Kendra Garcia M.D. [address] [place] [phone] 11/29/2023 7:45 AM CDT Clinical Communication Virtual Review in [address] [phone] 11/30/2023 7:00 AM CDT Appointment Department of Laboratory Medicine and Pathology, [facility] in [place], [place] [address] [place] [phone] Eric Renner M.D. [address] [place] [phone] 11/30/2023 9:00 AM CDT Office Visit Division of Hematology in [address] [phone] Aníbal Reece, FAVIOLA, C.N.P., M.S.N. [address] [place] [phone] 11/30/2023 12:15 PM CDT Infusion Department of Oncology in [address] [phone] Eric Renner M.D. [address] [place] [phone] 12/20/2023 7:45 AM COOK HOUSE SUPERVISOR Clinical Communication Virtual Review in [address] [phone] 12/21/2023 7:00 AM COOK HOUSE SUPERVISOR Appointment Department of Laboratory Medicine and Pathology, [facility] in [place], [place] [address] [place] [phone] Eric Renner M.D. [address] [place] [phone] 12/21/2023 9:00 AM COOK HOUSE SUPERVISOR Office Visit Division of Hematology in [place], [place] [address] [place] [phone] Zulma Hickey APRN, C.N.P., M.S.N. [address] [place] [phone] 12/21/2023 10:00 AM COOK HOUSE SUPERVISOR Infusion Department of Oncology in [place], [place] [address] [place] [phone] Eric Renner M.D. [address] [place] [phone] 01/11/2024 7:00 AM COOK HOUSE SUPERVISOR Appointment Department of Laboratory Medicine and Pathology, [facility], in [place], [place] [address] [place] [phone] Eric Renner M.D. [address] [place] [phone] 01/11/2024 9:00 AM COOK HOUSE SUPERVISOR Office Visit Division of Hematology in [place], [place] [address] [place] [phone] Susu Cameron M.D. [address] [place] [phone] 01/11/2024 10:15 AM COOK HOUSE SUPERVISOR Infusion Department of Oncology in [place], [place] [address] [place] [phone] Eric Renner M.D. [address] [place] [phone] 01/14/2024 9:15 AM COOK HOUSE SUPERVISOR Diagnostic Department of Otorhinolaryngology in [place], [place] [address] [place] [phone] Eric Renner M.D. [address] [place] [phone] Wendy Moon Au.D., C.C.CJacquelin-A [address] [place] [phone] 01/14/2024 1:00 PM COOK HOUSE SUPERVISOR Diagnostic Department of Otorhinolaryngology in [place], [place] [address] [place] [phone] Eric Renner M.D. [address] [place] [phone] Osiel Middleton Au.D. [address] [place] [phone] 01/14/2024 4:00 PM COOK HOUSE SUPERVISOR Clinical Support Department of Otorhinolaryngology in [place], [place] [address] [place] [phone] Eric Renner M.D. 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 at 8:26 CT BONE BIOPSY RAD - [...] Routine 08/22/2023 8:49 AM CDT Tumor Bone [id number] (BETA-2-M), S Routine 08/22/2023 8:49 AM CDT [...] EXT Leukocytes 5.80 4.50 - 11.00 K/uL [facility] EXT RBC 4.09 4.00 - 5.20 m/uL [facility] EXT Hemoglobin 13.0 12.0 - 16.0 gm/dL [facility] EXT Hematocrit 39.1 33.0 - 51.0 % [facility] EXT MCV 96 80 - 100 fL [facility] EXT Platelet Count 219 140 - 440 K/uL [facility] EXT Neutrophils 4.80 1.7 - 7.0 K/uL [facility] EXT Lymphocytes 0.90 0.90 - 2.90 K/uL [facility] EXT Monocytes 0.10 0.00 - 0.90 K/UL [facility] EXT Eosinophils 0.07 0.00 - 0.50 K/uL [facility] EXT Basophils 0.02 0.00 - 0.30 K/uL [facility] 11/14/2023 10:0 0 AM CDT Narrative [facility] - 11/14/2023 2:19 PM CDT External results verified in Extract by Zulma Ray on 11/14/2023 at 02:10 PM. Virgil Ordering Provider External M.DJacquelin LAB BLOO D ADD-ON [facility] [address] [place] [address] * (ABNORMAL) Comprehensive Metabolic Panel (11/09/2023 7:13 [...] Eric Monzon M.D. LAB BLOOD ADD-ON [facility] [address] [place] [address], [facility] DTL [facility] [address] [place] [address] * PET CT Whole Body FDG (11/08/2023 3:56 PM CDT) Only the most recent of2 resultswithin the time period is included. Anatomical Region Laterality Modality Whole body, Nuclear Medicine PET RST LOS, PET ARZ LOS, Nuclear Medicine PET FLA LOS, Nuclear Medicine N/A Positron Emission Tomogr aphy (PET), Positron Emission Tomography (PET) Impressions 11/08/2023 5:36 PM CDT Positive response to interval chemotherapy. Jenille response score 2. Narrative 11/08/2023 5:36 PM CDT EXAM: ??PET CT WHOLE BODY FDG Serum glucose at time of F-18 FDG injection was 106 mg/dL. Patient followed standard dietary/fasting requirements for this exam. RADIOPHARMACEUTICAL/MEDS: Route: intravenous fludeoxyglucose F 18 injection CORRECTION (FDG F-18),9.88 millicurie TECHNIQUE: ??F-18 FDG PET/CT [...] RADIOPHARMACEUTICAL/MEDS: Route: intravenous fludeoxyglucose F 18 injection CORRECTION (FDG F-18),9.88 millicurie TECHNIQUE: F-18 FDG PET/CT [...] uptake along the upper esophagus (axial fused [id number]). Mild inflammatory uptake along the right tibia from ACL repair.Presumed urinary contamination. Metformin related activity throughout thebowel. The FDG activity is otherwise physiologic. Significant incidental findings on the low-dose unenhanced CT fusionimages: Maxillary sinus cysts. Bilateral dependent atelectasis. Coronaryartery calcification. Trace pericardial effusion. Cholecystectomy.Hysterectomy. Extensive colonic diverticulosis. Patchy sclerosis in the left ilium. Scattered skeletaldegenerative changes. IMPRESSION: Positive response to interval chemotherapy. Jc response score 2. Eric Monzon M.D. IMG NM DC OCEDURES * Hematology/Oncology - Blood, External Lab Results (10/11/2023) EXT Hemoglobin 14 OTHER (SPECIFY IN DOG RACES MANAGER) EXT Hematocrit 42.4 OTHER (SPECIFY IN DOG RACES MANAGER) EXT WBC 1.30 OTHER (SPE CIFY IN DOG RACES MANAGER) EXT Absolute Neutrophil Count 0.10 OTHER (SPECIFY IN DOG RACES MANAGER) EXT Lymphs Absolute 0.8 OTHER (SPECIFY IN DOG RACES MANAGER) EXT Platelet Count 261 OTHER (SPECIFY IN DOG RACES MANAGER) Blood 10/11/2023 Historical Provider LAB BLOOD NON ADD-ON OTHER (SPECIFY IN DOG RACES MANAGER) N/A * Uric Acid (09/27/2023 10:24 AM CDT) Only the most recent of2 resultswithin the time period is included. Uric Acid, S 4.0 2.7 - 6.1 mg/dL 09/27/2023 11:18 AM CDT DTL Blood (Blood, Venous) 09/27/2023 10:24 AM CDT 09/27/2023 10:58 AM CDT Eric Monzon M.D. LAB BLOOD ADD-ON [facility] [address] [place] [address], [facility] [address] [place] [address] * Phosphorus Inorganic (09/27/2023 10:24 AM CDT) Phosphorus (Inorganic), S 3.9 2.5 - 4.5 mg/dL 09/27/2023 11:18 AM CDT DTL Blood (Blood, Venous) 09/27/2023 10:24 AM CDT 09/27/2023 10:58 AM CDT Eric Monzon M.D. LAB BLOOD ADD-ON Performing Organization Address [facility] Co de Phone Number [facility] [address] [place] [address], [facility] 200 [place] [address] * (ABNORMAL) LD (Lactate Dehydrogenase) (09/27/2023 10:24 AM CDT) Only the most recent of3 resultswithin the time period is included. Lactate Dehydrogenase (LD), S 285(H) 122 - 222 U/L 09/27/2023 11:18 AM CDT DTL Blood (Blood, Venous) 09/27/2023 10:24 AM CDT 09/27/2023 10:58 AM CDT Eric Monzon M.D. LAB BLOOD NON ADD-ON Performing Organization Address [facility] de Phone Number [facility] [address] [place] [address], [facility] [address] [place] [address] * Otorhinolaryngology Image Exam-Otorhinolaryngology Image Exam (09/14/2023 [...] RAD IMAGI NG PROCEDURES Performing Organization Address [facility] Co de Phone Number [facility]IMS NA * (TTE) 2D ECHO DOPPLER [...] 7:58 AM CDT There are no previous [facility] echocardiograms available for comparison. Patient was in extreme pain laying in left lateral position. Optimal images acquired in left lateral position, intermittently, based on patients pain tolerance. LEFT VENTRICLE:Normal left ventricular chamber size. Normal left ventricular geometry. Calculated 2-D biplane volumetric left ventricular ejection fraction of 59%. Left ventricular strain assessment was performed but not reported based on yellow pages space salesperson's judgment (limited image quality) No regional wall [...] pericardial effusion. Findings There are no previous [facility] echocardiograms available forcomparison. Patient was in extreme pain laying in left lateral position.Optimal images acquired in left lateral position, intermittently, based onpatients pain tolerance. LEFT VENTRICLE:Normal left ventricular chamber size. Normal leftventricular geometry. Calculated 2-D biplane volumetric left ventricularejection fraction of 59%. Left ventricular strain assessment was performedbut not reported based on yellow pages space salesperson's judgment (limited image quality)No regional wall motion [...] the complete report, see the Order-Level Documents. Eric Monzon M.D. CV ECHO P ROCEDURES * Osmolality, Urine (09/11/2023 3:00 PM CDT) Pathologist [facility] Osmolality, U 536 150 - 1150 mOsm/kg 09/11/2023 3:36 PM CDT DTL Urine 09/11/2023 3:00 PM CDT 09/11/2023 3:22 PM CDT Eric Monzon M.D. LAB URINE ORDERABLES [facility] [address] [place] [address], [facility]Department [facility] Affairs [facility] [address] [place] [address] * Dipstick, Urine (09/11/2023 3:00 PM CDT) [...] CDT Eric Monzon M.D. LAB URINE ORDERABLES Performing Organization Address City/[facility]/ZIP Co de Phone Number [facility] [address] [place] [address], [facility] [address] [place] [address] * pH, Random, Urine (09/11/2023 3:00 PM CDT) pH, Random, U 5.1 4.5 - 8.0 09/11/2023 3:36 PM CDT DTL Urine 09/11/2023 3:00 PM CDT 09/11/2023 3:22 PM CDT Eric Monzon M.D. LAB URINE ORDERABLES Performing Organization Address City/[facility] Co de Phone Number [facility] [address] [place] [address], [facility] [address] [place] [address] * (ABNORMAL) Microscopic Manual (09/11/2023 3:00 PM [...] Eric Monzon M.D. LAB URINE ORDERABLES [facility] [address] [place] [address], [facility] DTL [facility] [address] [place] [address] * Urinalysis, with Microscopic: Urine, Midstream (09/11/2023 [...] Eric Monzon M.D. LAB URINE ORDERABLES [facility] [address] [place] [address], [facility] DTL [facility] [address] [place] [address] * Leukemia/Lymphoma Immunophenotyping by Flow Cytometry, Blood [...] 12:36 PM CDT DTL Microscopic Description A Xtvmpb-Labqor-etduop d slide prepared from the flow cytometry specimen is examined. ??No morphologic features of acute leukemia or lymphoma are identified. 09/12/2023 12:36 PM CDT DTL Comment: ----ADDITIONAL INFORMATION---- This test was developed using an analyte specific reagent. Its performance characteristics were determined by [facility] in a manner consistent with CLIA requirements. This test has not been cleared or approved by the U.S. Food and Drug Administration. Blood (Blood, Venous) 09/11/2023 2:56 PM CDT 09/11/2023 3:20 PM CDT Eric Monzon M.D. LAB SHILO IC TESTING [facility] [address] [place] [address], [facility] DTL [address] [place] [address] * (ABNORMAL) Glucose, Fasting (09/11/2023 2:56 PM CDT) Glucose, P 103(H) 70 - 100 mg/dL 09/11/2023 3:40 PM CDT DTL Last Intake 8 hr 09/11/2023 3:08 PM CDT DTL Blood (Blood, Venous) 09/11/2023 2:56 PM CDT 09/11/2023 3:08 PM CDT Eric Monzon M.D. LAB BLOOD NON ADD-ON [facility] [address] [place] [address], [facility] DTDepartment of Veterans Affairs [facility] [address] [place] [address] * (ABNORMAL) Quantitative M-protein Study (09/11/2023 2:55 [...] developed and its performance characteristics determined by [facility] in a manner consistent with CLIA requirements. This test has not been cleared or approved by the U.S. Food and Drug Administration. Blood (Blood, Venous) 09/11/2023 2:55 PM CDT 09/12/2023 6:17 AM CDT Narrative [facility] - 09/12/2023 5:43 PM CDT Specimen Information: Specimen ID: [id number] Specimen Type: Blood Specimen Collection Start Date: 09/11/2023 ??2:55 PM Specimen Received Date: 09/12/2023 ??6:17 AM Specimen ID: [id number] Specimen Type: Blood Specimen Collection Start Date: 09/11/2023 ??2:55 PM Specimen Received Date: 09/12/2023 ??6:09 AM Eric Monzon M.D. LAB BLOOD ADD-ON Performing Organization Address City/[facility]/ZIP Co de Phone Number [facility] [address] [place] [address] [facility] [address] [place] [address] [place] [id number] [place] [address] [place] [address] * HBs Antigen Scrn, Serum (09/11/2023 2:55 PM CDT) Pathologist [facility] HBs Antigen Scrn, S Negative Negative 09/11/2023 7:33 PM CDT [facility] Blood (Blood, Venous) 09/11/2023 2:55 PM CDT 09/11/2023 6:41 PM CDT Eric Monzon M.D. LAB MICRO BIOLOGY - BLOOD ORDERABLES Performing Organization Address City/[facility]/ZIP Co de Phone Number [facility] [address] [place] [address] [facility] [address] [place] [address] * HBc Total Ab Scrn, Serum (09/11/2023 2:55 PM CDT) Pathologist [facility] HBc Total Ab Scrn, S Negative Negative 09/11/2023 7:33 PM CDT [facility] Blood (Blood, Venous) 09/11/2023 2:55 PM CDT 09/11/2023 6:41 PM CDT Eric Monzon M.D. LAB MICRO BIOLOGY - BLOOD ORDERABLES Performing Organization Address City/[facility]/ZIP Co de Phone Number [facility] [address] [place] [address] [facility] [address] [place] [address] * HIV-1/-2 Ag and Ab Screen, Plasma (09/11/2023 2:55 PM CDT) [facility] HIV-1/-2 Ag and Ab Screen, P Negative Negative 09/11/2023 7:28 PM CDT [facility] Comment: Negative result does not rule out HIV infection. If exposure to HIV infection occurred <14 days ago, contact the laboratory to request addition of HIV-1/HIV-2 RNA detection, Plasma (HIP12). Blood (Blood, Venous) 09/11/2023 2:55 PM CDT 09/11/2023 6:41 PM CDT Eric Monzon M.D. LAB MICRO BIOLOGY - BLOOD ORDERABLES Performing Organization Address City/[facility]/ZIP Co de Phone Number [facility] [address] [place] [address] [facility] [address] [place] [address] * (ABNORMAL) Quantitative Lymphocyte Subsets: T, B, and Natural Killer (NK) (09/11/2023 2:55 PM CDT) [facility] CD45 Total Lymph Count 2.40 0.82 - [...] reagent. Its performance characteristics were determined by [facility] in a manner consistent with CLIA requirements. This test has not been cleared or approved by the U.S. Food and Drug Administration. Blood (Blood, Venous) 09/11/2023 2:55 PM CDT 09/11/2023 6:38 PM CDT Eric Monzon M.D. LAB BLOOD ADD-ON [facility] [address] [place] [address] [facility] [address] [place] [address] [place] [address] * HCV Ab w/Reflex to HCV PCR, Serum (09/11/2023 2:55 PM CDT) HCV Ab, S Negative Negative 09/11/2023 7:30 PM CDT [facility] Comment: Consumption of high-dose biotin supplement within 12 hours of blood collection for this test can cause false-negative results. Blood (Blood, Venous) 09/11/2023 2:55 PM CDT 09/11/2023 6:41 PM CDT Narrative Authorizing Provider Result Aura Monzon M.D. LAB MICRO BIOLOGY - BLOOD ORDERABLES Performing Organization Address [facility] Co de Phone Number [facility] [address] [place] [address] [facility] [address] [place] [address] * 25-Hydroxyvitamin D2 and D3 (09/11/2023 2:55 PM CDT) 25-Hydroxy D2 <4.0 ng/mL 09/12/2023 4:44 PM CDT SDSC 25-Hydroxy D3 29 ng/mL 09/12/2023 4:44 PM CDT SDS 25-Hydroxy D Total 29 ng/mL 2023 4:44 PM CDT [facility] Comment: ----REFERENCE VALUE---- 25-HYDROXY D TOTAL (D2+D3) Optimum levels in the healthy population are 20-50. ----ADDITIONAL INFORMATION---- This test was developed and its performance characteristics determined by [facility] in a manner consistent with CLIA requirements. This test has not been cleared or approved by the U.S. Food and Drug Administration. Blood (Blood, Venous) 09/11/2023 2:55 PM CDT 09/12/2023 7:05 AM CDT Narrative Authorizing Provider Result Aura Monzon M.D. LAB BLOOD ADD-ON Performing Organization Address City/[facility] Co de Phone Number [facility] [address] [place] [address] [facility] [place] [address] * AST (Aspartate Aminotransferase) (09/11/2023 2:55 PM CDT) Aspartate Aminotransferase (AST), S 24 8 - 43 U/L 09/11/2023 3:44 PM CDT DTL Blood (Blood, Venous) 09/11/2023 2:55 PM CDT 09/11/2023 3:26 PM CDT Eric Monzon M.D. LAB BLOOD ADD-ON [facility] [address] [place], [place] [id number] [place] [address] 200 [place] [address] * Potassium (09/11/2023 2:55 PM CDT) Potassium, S 5.1 3.6 - 5.2 mmol/L 09/11/2023 3:44 PM CDT DTL Blood (Blood, Venous) 09/11/2023 2:55 PM CDT 09/11/2023 3:26 PM CDT Narrative Authorizing Provider Result Aura Monzon M.D. LAB BLOOD ADD-ON Performing Organization Address City/[facility]/ZIP Co de Phone Number [facility] [address] [place], [place] [phone] [place] [address] [address] [place] [address] * (ABNORMAL) Alkaline Phosphatase (09/11/2023 2:55 PM CDT) Alkaline Phosphatase, S 141(H) 35 - 104 U/L 09/11/2023 3:44 PM CDT DTL Blood (Blood, Venous) 09/11/2023 2:55 PM CDT 09/11/2023 3:26 PM CDT Narrative Authorizing Provider Result Aura Monzon M.D. LAB BLOOD ADD-ON [facility] [address] [place], [place] [phone] [place] [address] * Creatinine with Estimated GFR (09/11/2023 2:55 PM CDT) Creatinine 0.95 0.59 - 1.04 mg/dL 09/11/2023 3:44 PM CDT DTL Estimated GFR (eGFR) 71 >=60 mL/min/BSA 09/11/2023 3:44 PM CDT DTL Comment: Estimated GFR calculated using the 2020 CKD_EPI creatinine equation. Blood (Blood, Venous) 09/11/2023 2:55 PM CDT 09/11/2023 3:26 PM CDT Eric Monzon M.D. LAB BLOOD ADD-ON Performing Organization Address City/[facility]/ZIP Co de Phone Number [facility] [address] [place], [place] [phone] [place] [address] [address] [place] [address] * (ABNORMAL) Calcium, Total (09/11/2023 2:55 PM CDT) Calcium, Total, S 10.1(H) 8.6 - 10.0 mg/dL 09/11/2023 3:44 PM CDT DTL Blood (Blood, Venous) 09/11/2023 2:55 PM CDT 09/11/2023 3:26 PM CDT Eric Monzon M.D. LAB BLOOD ADD-ON Performing Organization Address [facility] Co de Phone Number [facility] [address] [place], [place] [phone] [place] [address] [address] [place] [address] * Bilirubin, Total (09/11/2023 2:55 PM CDT) Bilirubin, Total, S 0.4 0.0 - 1.2 mg/dL 09/11/2023 3:44 PM CDT DTL Blood (Blood, Venous) 09/11/2023 2:55 PM CDT 09/11/2023 3:26 PM CDT Eric Monzon M.D. LAB BLOOD ADD-ON Performing Organization Address City/[facility]/ZIP Co de Phone Number [facility] [address] [place] [id number], [facility] DTL [facility] [facility] [address] [place] [address] * (ABNORMAL) Kyva-2-Pfdwmmqdoaslx (Beta-2-M) (09/11/2023 2:55 PM CDT) Only the most recent of2 resultswithin the time period is included. Xumi-0-Wtwjfgu obulin, S 2.97(H) 1.21 - 2.70 mcg/mL 09/12/2023 9:00 AM CDT [facility] Blood (Blood, Venous) 09/11/2023 2:55 PM CDT 09/12/2023 6:17 AM CDT Eric Monzon M.D. LAB BLOOD ADD-ON Performing Organization Address City/[facility]/ZIP Co de Phone Number [facility] [address] [place] [address] [facility] [address] [place] [address] * MICROSCOPIC DIRECT LARYNGOSCOPY WITH CARBON DIOXIDE [...] RAD IMAGI NG PROCEDURES Performing Organization Address City/[facility]/ZIP Co de Phone Number IIMS NA * [...] for frozen and permanent sections. ??Grossed by Marlon Art, P.A. ([facility]). B. ??Received fresh labeled right true vocal [...] Moore M.D. LAB SURG PATH ORDERA BLES [facility] [address] [place] [address], [facility] [address] [place] [address] * Glucose, POCT (08/31/2023 3:07 PM CDT) Only the most recent of2 resultswithin the time period is included. Glucose, POCT, B 102 70 - 140 mg/dL 08/31/2023 3:11 PM CDT PCSM Site Capillary 08/31/2023 3:11 PM CDT PCSM Blood 08/31/2023 3:07 PM CDT 08/31/2023 3:11 PM CDT Unknown Provider LAB POCT ORDERABLES- [facility] [address] [place] [address], [facility] POC [address] [place] [address] * LDA ANE ENDOTRACHEAL AIRWAY (08/31/2023 2:44 PM CDT) Narrative Melanie Jones APRN, CRNA DNAP - 08/31/2023 2:44 PM CDT Melanie Jones APRN, CRNA DNAAd ? 08/31/2023 ??2:51 PM Airway Date/Time: 08/31/2023 2:44 PM Performed by: Melanie Jones APRN, CRNA DNAAd Authorized by: uBddy Morton M.D., M.S. ?? Patient location during [...] with the ordering provider Dr. Jose Zhang [phone] who requested the extraosseous soft tissue to [...] discussed with the ordering providerDr. Jose Zhang [phone] who requested the extraosseous soft tissue tobiopsy. [...] left iliac bone. EP Jose Zhang M.D. IMG CT PROCEDURES * (ABNORMAL) Cytology Fine Needle Aspiration (including core biopsies) (08/23/2023 2:58 PM CDT) (A) 1:09 PM CDT DTL Disclaimer This test was developed and its performance characteristics determined by [facility] in a manner consistent with CLIA requirements. [...] four cores and nine fragments. ??Grossed by [facility] B: Received 3 alcohol-fixed smears and tissue. [...] not decalcified prior to processing. ??Grossed by [facility](A) 08/30/2023 1:09 PM CDT DTL Source A. [...] for BLYM, soft tissue, pelvis, left, nodule ([id number]; block A1; 08/23/2023): ?? The result is [...] and CD20. The neoplastic cells are diffusely CE94-lvdomans and are negative for CD3.(A) 08/30/2023 1:09 PM CDT DTL Tissue (Pelvis, Left) 08/23/2023 2:58 PM CDT Biopsy (Bone) 08/23/2023 3:0 0 PM CDT Jose Zhang M.D. LAB SURG PATH DANIELLE LOYA [facility] [address] [place] [address], [facility] DTL [address] [place] [address] * B-cell Lymphoma, FISH, Tissue (08/23/2023 10:56 AM CDT) Pathologist [facility] Result Summary Positive 08/30/2023 1:05 PM CDT DTL Disclaimer This test was developed and its performance characteristics determined by [facility] in a manner consistent with CLIA requirements. [...] 08/30/2023 1:05 PM CDT DTL Result nuc annabel(3'WCC4o7-6,5'B GH0z4-3)(3'BCL2 con 5'BSB8t9-6)[51/100 ] 08/30/2023 1:05 PM CDT DTL Reason for Referral rule out [facility] 08/30/2023 1:05 PM CDT DTL Specimen Tissue, Slides, Formalin 08/30/2023 1:05 PM CDT DTL Source soft tissue, pelvis, left, nodule 08/30/2023 1:05 PM CDT DTL Tissue ID [id number] 08/30/2023 1:05 PM CDT DTL Method Locus and probes ?[Strategy;#Nucle i;Vendor] ----- 3q27(3'BCL6,5'BCL6 ) ?[BAP;100;AM] 8CEN(D8Z2),8q24.1( MYC),14q32(IGH) ?[DFISH;100;AM] 8q24.1(5'MYC,3'MYC ) ?[BAP;100;AM] 18q21(3'BCL2,5'BCL 2) ? [BAP;100;AM] Probe strategies include: DFISH=dual color, double fusion; BAP=break-apart probe. Scoring Method: Manual Probe vendors include: AM = [employer] ([place], [place]) 08/30/2023 1:05 PM CDT DTL Additional Information A portion of the testing process was performed at [facility] site [id number]. 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 No rearrangement of MYC or BCL6 and no fusion of MYC and IGH was observed. FISH studies interpreted in consultation with Arielle Pérez M.D. This test was ordered in the context of a [facility] pathology consultation/case (#[id number]), and this result should be interpreted within the context of the pathology consultation/repor t. 08/30/2023 1:05 PM CDT DTL Tissue 08/23/2023 10:5 6 AM CDT 08/28/2023 11:44 AM CDT Jose Zhang M.D. LAB GENETIC TESTIN G Performing Organization Address City/[facility] Co de Phone Number [facility] [address] [place] [address], [facility] DTL 200 [facility] [address] [place] [address] * ECG 12 Lead (08/22/2023 2:40 PM CDT) Ventricular Rate ECG/Min 117 BPM MUSE DC Interval 120 ms MUSE QRSD Interval 78 ms MUSE QT Interval 342 ms MUSE QTC Interval 477 ms MUSE P [place] 57 degrees MUSE R [place] 87 degrees MUSE T Wave [place] 40 degrees MUSE 08/22/2023 2:40 PM CDT [...] Jose Zhang M.D. LAB BLOOD ADD-ON [facility] [address] [place] [address], [place] [facility] [address] [place] [address] * Immunoglobulin Free Light Chains (08/22/2023 8:48 AM CDT) Umbarger Free Light Chain, S 1.76 0.3300 - 1.94 mg/dL 08/22/2023 1:34 PM CDT [facility] Lambda Free Light Chain, S 1.97 0.5700 - 2.63 mg/dL 08/22/2023 1:35 PM CDT [facility] Umbarger/Lambda FLC Ratio 0.8934 0.2600 - 1.65 08/22/2023 1:35 PM CDT [facility] Blood (Blood, Venous) 08/22/2023 8:48 AM CDT 08/22/2023 1:04 PM CDT Jose Zhang M.D. LAB BLOOD ADD-ON [facility] [address] [place] [address] [facility] [address] [place] [address] * Sedimentation Rate (08/22/2023 8:48 AM CDT) Pathologist [facility] Sedimentation Rate, B 16 2 - 22 mm/h 08/22/2023 11:23 AM CDT DT Blood (Blood, Venous) 08/22/2023 8:48 AM CDT 08/22/2023 9:14 AM CDT Jose Zhang M.D. LAB BLOOD ADD-ON [facility] [address] [place] [address], [facility] [address] [place] [address] from Last 3 Months Additional Health Concerns Infection Onset Date Last Indicated Protective Environment 09/19/2023 Care Teams Aws Architect Relationship Specialty Start Date End Date Elsewhere, Pcp PCP - General Internal Medicine 08/21/23
--- OUTSIDE RECORDS SUMMARY | 2023-11-20 19:21 | XMS_ITS | Encounter Summary ---
Author Organization [facility] Address [address] [place] [address] Care Team Providers Care Tool And Die Technician Name Role Phone Elsewhere, Pcp Primary Care Provider Unavailabl e Reason for Visit * Reason Onset Date Comments Results 11/15/2023 Encounter Details Date Type Department Care Team (Late st Contact Info) Description 11/15/2023 Clinical Communication Division of Hematology in [place], [place] [address] [place] [address] Eric Renner M.D. [address] [place] [address] Results Social History Tobacco Use Types Packs/Day Years Used Date Smoking Tobacco: Every Day Cigarettes 1.5 81.8 Started: 02/12/1982 Smokeless Tobacco: Never Alcohol Use Standard Drinks/Week Comments Not Currently 0 (1 standard drink = 0.6 oz pur e alcohol) rarely [facility] Utilities Answer Date Recorded In the past 12 months has [employer] gas, oil, or water [employer] threatened to shut off services in your [...] Answer Date Recorded Employment status Unemployed/not in e paid workforce but seeking employment 08/15/2023 Housing Stability Answer Date Recorded What is your living situation today? [facility] 08/15/2023 Sex and Gender Information Value Date Recorded Sex Assigned at Female 08/15/2023 7:51 AM CDT Gender Identity Female 08/15/2023 7:51 AM CDT Sexual Orientation Straight 08/15/2023 7: 51 AM CDT documented as of this encounter Miscellaneous Notes * Telephone Encounter - Mely Vergara, RJacquelinN. 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 No growth factor. Weekly labs Labs are within normal hematologic parameters. Test Result Information: Resulted Orders CBC with Differential, Blood Result Value Ref Range EXT Leukocytes 5.80 4.50 - 11.00 K/uL EXT RBC 4.09 4.00 - 5.20 m/uL EXT Hemoglobin 13.0 12.0 - 16.0 gm/dL EXT Hematocrit 39.1 33.0 - 51.0 % EXT MCV 96 80 - 100 fL EXT Platelet Count 219 140 - 440 K/uL EXT Neutrophils 4.80 1.7 - 7.0 K/uL EXT Lymphocytes 0.90 0.90 - 2.90 K/uL EXT Monocytes 0.10 0.00 - 0.90 K/UL EXT Eosinophils 0.07 0.00 - 0.50 K/uL EXT Basophils 0.02 0.00 - 0.30 K/uL Narrative External results verified in Extract by Zulma Ray on 11/14/2023 at 02:10 PM. Virgil Disposition/Recommendation: self-care is appropriate at this time, patient encouraged to call back with questions Information/Education: patient/caller able to teach back Caller agreeable to plan of care: yes documented in this encounter Plan of Treatment Upcoming Encounters Date Type Department Care Team (Latest Contact Info) Description 11/28/2023 2:15 PM CDT Office Visit Department of Otorhinolaryngology in [address] [phone] Kendra Garcia M.D. [address] [place] [phone] 11/29/2023 7:45 AM CDT Clinical Communication Virtual Review in [place], [place] [address] [place] [address] 11/30/2023 7:00 AM CDT Appointment Department of Laboratory Medicine and Pathology, [facility] in [address] [phone] Eric Renner M.D. [address] [place] [phone] 11/30/2023 9:00 AM CDT Office Visit Division of Hematology in [address] [phone] Aníbal Reece, ORDER DESK CALLER, C.N.P., M.S.N. [address] [place] [phone] 11/30/2023 12:15 PM CDT Infusion Department of Oncology in [address] [phone] Eric Renner M.D. [address] [place] [phone] 12/20/2023 7:45 AM LAUNDRY MACHINE MECHANIC Clinical Communication Virtual Review in [place], [place] [address] [place] [address] 12/21/2023 7:00 AM LAUNDRY MACHINE MECHANIC Appointment Department of Laboratory Medicine and Pathology, [facility] in [place], [place] [address] [place] [phone] Eric Renner M.D. [address] [place] [phone] 12/21/2023 9:00 AM LAUNDRY MACHINE MECHANIC Office Visit Division of Hematology in [place], [place] [address] [place] [phone] Zulma Hickey APRN, C.N.P., M.S.N. [address] [place] [phone] 12/21/2023 10:00 AM LAUNDRY MACHINE MECHANIC Infusion Department of Oncology in [place], [place] [address] [place] [phone] Eric Renner M.D. [address] [place] [phone] 01/11/2024 7:00 AM LAUNDRY MACHINE MECHANIC Appointment Department of Laboratory Medicine and Pathology, [facility], in [place], [place] [address] [place] [address] Eric Renner M.D. [address] [place] [phone] 01/11/2024 9:00 AM LAUNDRY MACHINE MECHANIC Office Visit Division of Hematology in [place], [place] [address] [place] [phone] Susu Cameron M.D. [address] [place] [address] 01/11/2024 10:15 AM LAUNDRY MACHINE MECHANIC Infusion Department of Oncology in [place], [place] [address] [place] [address] Eric Renner M.D. [address] [place] [phone] 01/14/2024 9:15 AM LAUNDRY MACHINE MECHANIC Diagnostic Department of Otorhinolaryngology in [place], [place] [address] [place] [address] Eric Renner M.D. [address] [place] [phone] Wendy Moon Au.D., C.C.CJacquelin-Grecia [address] [place] [phone] 01/14/2024 1:00 PM LAUNDRY MACHINE MECHANIC Diagnostic Department of Otorhinolaryngology in [place], [place] [address] [place] [address] Eric Renner M.D. [address] [place] [phone] Osiel Middleton Au.D. [address] [place] [phone] 01/14/2024 4:00 PM LAUNDRY MACHINE MECHANIC Clinical Support Department of Otorhinolaryngology in [place], [place] [address] [place] [address] Eric Renner M.D. [address] [place] [phone] Taj Nicolas PJacquelinT. [address] [place] [address] documented as of this encounter Visit Diagnoses Not on filedocumented in this encounter Additional Health Concerns Infection Onset Date Last Indicated Resolved Time Protective Environment 09/19/2023 09/19/2023 documented as of this encounter Care Teams Tool And Die Technician Relationship Specialty Start Date End Date Elsewhere, Pcp PCP - General Internal Medicine 08/21/23 documented as of this encounter
--- OUTSIDE RECORDS SUMMARY | 2023-11-20 19:21 | XMS_ITS | Encounter Summary ---
Author Organization [facility] Address [address] [place] [address] Care Team Providers Care Veterinary Meat Inspector Name Role Phone Elsewhere, Pcp Primary Care Provider Unavailabl e Encounter Details Date Type Department Care Team (Late st Contact Info) Description 11/09/2023 Orders Only [facility] [address] [place] [phone] Carmen Hudson, Pharm.D., R.Ph. 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 I have a [facility] place to live 08/15/2023 Sex and Gender Information Value Date Recorded Sex Assigned at Female 08/15/2023 7:51 AM CDT Gender Identity Female 08/15/2023 7:51 AM CDT Sexual Orientation Straight 08/15/2023 7: 51 AM CDT documented as of this encounter Plan of Treatment Upcoming Encounters Date Type Department Care Team (Latest Contact Info) Description 11/28/2023 2:15 PM CDT Office Visit Department of Otorhinolaryngology in [place], [place] [address] [place] [phone] Kendra Garcia M.D. [address] [place] [phone] 11/29/2023 7:45 AM CDT Clinical Communication Virtual Review in [place], [place] [address] [place] [address] 11/30/2023 7:00 AM CDT Appointment Department of Laboratory Medicine and Pathology, [facility], in [place], [place] [address] [place] [phone] Eric Renner M.D. [address] [place] [phone] 11/30/2023 9:00 AM CDT Office Visit Division of Hematology in [place], [place] [address] [place] [phone] Aníbal Reece APRN, C.N.P., M.S.N. [address] [place] [phone] 11/30/2023 12:15 PM CDT Infusion Department of Oncology in [place], [place] [address] [place] [phone] Eric Renner M.D. [address] [place] [phone] 12/20/2023 7:45 AM MOTHER HELPER Clinical Communication Virtual Review in [place], [place] 200 [place] [address] 12/21/2023 7:00 AM MOTHER HELPER Appointment Department of Laboratory Medicine and Pathology, [facility] in [place], [place] [address] [place] [phone] Eric Renner M.D. [address] [place] [phone] 12/21/2023 9:00 AM MOTHER HELPER Office Visit Division of Hematology in [place], [place] [address] [place] [phone] Zulma Hickey APRN, C.NJacquelinP., M.S.N. [address] [place] [phone] 12/21/2023 10:00 AM MOTHER HELPER Infusion Department of Oncology in [place], [place] [address] [place] [phone] Eric Renner M.D. [address] [place] [phone] 01/11/2024 7:00 AM MOTHER HELPER Appointment Department of Laboratory Medicine and Pathology, [facility], in [place], [place] [address] [place] [address] Eric Renner M.D. [address] [place] [phone] 01/11/2024 9:00 AM MOTHER HELPER Office Visit Division of Hematology in [place], [place] [address] [place] [address] Susu Cameron M.D. [address] [place] [phone] 01/11/2024 10:15 AM MOTHER HELPER Infusion Department of Oncology in [place], [place] [address] [place] [address] Eric Renner M.D. [address] [place] [phone] 01/14/2024 9:15 AM MOTHER HELPER Diagnostic Department of Otorhinolaryngology in [place], [place] [address] [place] [address] Eric Rnener M.D. [address] [place] [phone] Wendy Moon Au.D., C.C.C.-A [address] [place] [phone] 01/14/2024 1:00 PM MOTHER HELPER Diagnostic Department of Otorhinolaryngology in [place], [place] [address] [place] [address] Eric Renner M.D. [address] [place] [phone] Osiel Middleton Au.D. [address] [place] [phone] 01/14/2024 4:00 PM MOTHER HELPER Clinical Support Department of Otorhinolaryngology in [place], [place] [address] [place] [phone] Eric Renner M.D. 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
--- OUTSIDE RECORDS SUMMARY | 2023-11-20 19:21 | XMS_ITS | Encounter Summary ---
Author Organization [facility] Address [address] [place] [address] Care Team Providers Care Fish Agent Name Role Phone Elsewhere, Pcp Primary Care [...] MG VL CHEMO Eric Renner M.D. [address] [place] [phone] [address] [place] [address] [place] [phone] Referral ID Status Reason Start Date Expiration Date V isits Requested Visits Authorized [id number] Authorized 09/18/2023 09/18/2024 1 99 Encounter Details Date Type Department Care Team (Late st Contact Info) Description 11/09/2023 10:15 AM CDT Infusion Department of Oncology in [place], [place] [address] [place] [phone] Eric Renner M.D. 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 I have a [facility] place to live 08/15/2023 Sex and Gender Information Value Date Recorded Sex Assigned at Female 08/15/2023 7:51 AM CDT Gender Identity Female 08/15/2023 7:51 AM CDT Sexual Orientation Straight 08/15/2023 7: 51 AM CDT documented as of this encounter Plan of Treatment Upcoming Encounters Date Type Department Care Team (Latest Contact Info) Description 11/28/2023 2:15 PM CDT Office Visit Department of Otorhinolaryngology in [place], [place] [address] [place] [phone] Kendra Garcia M.D. [address] [place] [phone] 11/29/2023 7:45 AM CDT Clinical Communication Virtual Review in [place], [place] 200 [place] [address] 11/30/2023 7:00 AM CDT Appointment Department of Laboratory Medicine and Pathology, [facility] in [place], [place] [address] [place] [phone] Eric Renner M.D. [address] [place] [phone] 11/30/2023 9:00 AM CDT Office Visit Division of Hematology in [place], [place] [address] [place] [phone] Aníbal Reece, FAVIOLA, C.N.P., M.S.N. [address] [place] [phone] 11/30/2023 12:15 PM CDT Infusion Department of Oncology in [place], [place] [address] [place] [phone] Eric Renner M.D. [address] [place] [phone] 12/20/2023 7:45 AM HISTOLOGIC AIDE Clinical Communication Virtual Review in [place], [place] 200 [place] [address] 12/21/2023 7:00 AM HISTOLOGIC AIDE Appointment Department of Laboratory Medicine and Pathology, [facility] in [place], [place] [address] [place] [phone] Eric Renner M.D. [address] [place] [phone] 12/21/2023 9:00 AM HISTOLOGIC AIDE Office Visit Division of Hematology in [place], [place] [address] [place] [address] Zulma Hickey APRN, C.N.P., M.S.N. [address] [place] [phone] 12/21/2023 10:00 AM HISTOLOGIC AIDE Infusion Department of Oncology in [place], [place] [address] [place] [address] Eric Renner M.D. [address] [place] [phone] 01/11/2024 7:00 AM HISTOLOGIC AIDE Appointment Department of Laboratory Medicine and Pathology, [facility] in [place], [place] [address] [place] [address] Eric Renner M.D. [address] [place] [phone] 01/11/2024 9:00 AM HISTOLOGIC AIDE Office Visit Division of Hematology in [place], [place] [address] [place] [address] Susu Cameron M.D. [address] [place] [phone] 01/11/2024 10:15 AM HISTOLOGIC AIDE Infusion Department of Oncology in [place], [place] [address] [place] [address] Eric Renner M.D. [address] [place] [phone] 01/14/2024 9:15 AM HISTOLOGIC AIDE Diagnostic Department of Otorhinolaryngology in [place], [place] [address] [place] [phone] Eric Renner M.D. [address] [place] [phone] Wendy Moon Au.D., CJacquelinCJacquelinCJacquelin-A [address] [place] [phone] 01/14/2024 1:00 PM HISTOLOGIC AIDE Diagnostic Department of Otorhinolaryngology in [place], [place] [address] [place] [phone] Eric Renner M.D. [address] [place] [phone] Osiel Middleton Au.D. [address] [place] [phone] 01/14/2024 4:00 PM HISTOLOGIC AIDE Clinical Support Department of Otorhinolaryngology in [place], [place] [address] [place] [phone] Eric Renner M.D. [address] [place] [phone] Taj Nicolas, P.TJacquelin [address] [place] [phone] documented as of this encounter Visit Diagnoses Diagnosis 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)- Primary documented in this encounter Administered Medications Inactive Administered Medications - up to 3 most recent administrations Medication Order MAR Action Action Date Dose Rate Site acetaminophen tablet 650 mg (TylenoL) 650 mg, oral, Once, On Sun11/09/23 at 1100, For 1 dose, Administer 30 minutes prior to riTUXimab. Given 11/09/2023 11:00 AM CDT 650 mg cycloPHOSphamide 1,500 mg in NaCl 0.9% 350 mL IVPB (Cytoxan) 1,500 mg (rounded from 1,462.5 mg = 750 mg/m2 ? 1.95 m2 Treatment Plan BSA from Measured weight), intravenous, at 700 mL/hr, Administer over 30 Minutes, Once, On Sun11/09/23 at 1330, For 1 dose New Bag 11/09/2023 2:05 PM CDT 1,500 mg 700 mL/hr diphenhydrAMINE injection 25 mg (BenadryL) 25 mg, intravenous, Once, On Sun11/09/23 at 1100, For 1 dose, Administer 30 minutes prior to riTUXimab. Given 11/09/2023 11:00 AM CDT 25 mg DOXOrubicin injection 100 mg (Adriamycin) 100 mg (rounded from 97.5 mg = 50 mg/m2 ? 1.95 m2 Treatment Plan BSA from Measured weight), intravenous, Administer over 10 Minutes, Once, On Sun11/09/23 at 1300, For 1 dose, Administer IV push through a free flowing IV of 0.9% NaCL over approximately 10 minutes via Y-site. Protect from light. Given 11/09/2023 1:45 PM CDT 100 mg fosaprepitant in NaCl 0.9% IVPB 150 mg (Emend) 150 mg, intravenous, at 500 mL/hr, Administer over 30 Minutes, Once, On Sun11/09/23 at 1106, For 1 dose, Incompatible with solutions containing divalent cations (calcium, magnesium) including lactated Ringer's solution. If oral aprepitant ordered, discontinue IV fosaprepitant., Restriction Criteria (Pharmacy will review and approve if criteria met): Prescribing under the direction of Hematology/Oncology New Bag 11/09/2023 11:06 AM CDT 150 mg 500 mL/hr palonosetron injection 0.25 mg (Aloxi) 0.25 mg, intravenous, Once, On Sun11/09/23 at 1106, For 1 dose Given 11/09/2023 11:05 AM CDT 0.25 mg riTUXimab-abbs 700 mg in NaCl 0.9% IVPB (Truxima) 700 mg (rounded from 731.25 mg = 375 mg/m2 ? 1.95 m2 Treatment Plan BSA from Measured weight), intravenous, Once, On Sun11/09/23 at 1130, For 1 dose, Infuse over 90 minutes at 280 mL/hr for 30 minutes; then 560 mL/hr for 60 minutes., Restriction Criteria (Pharmacy will review and approve if criteria met): Meets rituximab algorithm criteria Rate/Dose Change 11/09/2023 12:30 PM CDT 560 mL/hr New Bag 11/09/2023 11:54 AM CDT 700 mg 280 mL/hr vinCRIStine 2 mg in NaCl 0.9% 60 mL IVPB (Oncovin) 2 mg (set by rule on 09/18/2023 3:34 PM), intravenous, Administer over 10 Minutes, Once, On Sun11/09/23 at 1300, For 1 dose, Not to exceed 2 mg per dose. For Intravenous Use Only -- FATAL if given INTRATHECALLY. If being given via PERIPHERAL IV, medication MUST be administered by gravity. If being given via CENTRAL LINE, medication may be administered by pump or gravity. Protect from light. New Bag 11/09/2023 1:55 PM CDT 2 mg documented in this encounter Additional Health Concerns Infection Onset Date Last Indicated Resolved Time Protective Environment 09/19/2023 09/19/2023 documented as of this encounter Care Teams Fish Agent Relationship Specialty Start Date End Date Elsewhere, Pcp PCP - General Internal Medicine 08/21/23 documented as of this encounter
--- OUTSIDE RECORDS SUMMARY | 2023-11-20 19:21 | XMS_ITS ---
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 Linked Problems Diffuse Large B Cell Lymphom a Lymph Nodes Of Multiple Sites (HCC) Treatment Medications Current Day (Day 1 , Cycle 4 - Planned for 11/30/2023) Next Day (Day 1, Cycle 5 - Planned for 12/21/2023) cycloPHOSphamide (Cytoxan)cycloPHOSphamide (Cytoxan) IVPB in 250 mL (1 g vial) (Cytoxan)DOXOrubicin (Adriamycin)riTUXimab-abbs (Truxima)riTUXimab-abbs (Truxima) IVPB (RESTRICTED) (Truxima)vinCRIStine (Oncovin)vinCRIStine (Oncovin) IVPB in 50 mL solution cycloPHOSphamide 1,500 mg in NaCl 0.9% 325 mL IVPB (Cytoxan)DOXOrubicin injection 100 mg (Adriamycin)riTUXimab-abbs 700 mg in NaCl 0.9% IVPB (Truxima)vinCRIStine 2 mg in NaCl 0.9% 52 mL IVPB (Oncovin) cycloPHOSphamide 1,500 mg in NaCl 0.9% 325 mL IVPB (Cytoxan)DOXOrubicin injection 100 mg (Adriamycin)riTUXimab-abbs 700 mg in NaCl 0.9% IVPB (Truxima)vinCRIStine 2 mg in NaCl 0.9% 52 mL IVPB (Oncovin) Vascular Access Patency - Peripheral Intravenous Catheter and Rapid Infusion Catheter* Plan Start Date:09/28/2023 Plan Provider:Marina Rosario APRN, C.N.P., M.S.N. 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 Past Plans No past plan information found. Radiation Treatments * No radiation treatments are documented for this patient in [facility]. Treatments may have been administered in another system. Lifetime Dose Tracking * Chemical Lifetime Dose Automatic Entry Manual Entr y doxorubicin 154.917 mg/m2 (300 mg) 154.917 mg/m2 (300 mg) 0 mg/m2 (0 mg) Pediatric total anthracycline 154.917 mg/m2 (300 mg) 154.917 mg/m2 (300 mg) 0 mg/m2 (0 mg) Adult total anthracycline 154.917 mg/m2 (300 mg) 154.917 mg/m2 (300 mg) 0 mg/m2 (0 mg)
--- OUTSIDE RECORDS SUMMARY | 2023-11-20 19:22 | XMS_ITS | Encounter Summary ---
Author Organization [facility] Address [address] [place] [address] Care Team Providers Care Marketing Education Teacher Name Role Phone Elsewhere, Pcp Primary Care Provider Unavailabl e Reason for Visit * Reason Onset Date Comments Rst hem lymph chemo 10/22/2023 Encounter Details Date Type Department Care Team (Latest Contact Info) Description 10/22/2023 Clinical Communication Division of Hematology in [place], [place] [address] [place] [address] Eric Renner M.D. [address] [place] [address] Rst hem lymph chemo Social History Tobacco Use Types Packs/Day Years Used Date Smoking Tobacco: Every Day Cigarettes 1.5 81.8 Started: 02/12/1982 Smokeless Tobacco: Never Alcohol Use Standard Drinks/Week Comments Not Currently 0 (1 standard drink = 0.6 oz pur e alcohol) rarely [facility] Utilities Answer Date Recorded In the past 12 months has e [employer], gas, oil, or water [employer] threatened to shut off services in your [...] your living situation today? I have a [facility] place to live 08/15/2023 Sex and [...] CDT Office Visit Department of Otorhinolaryngology in [place], [place] [address] [place] [phone] Kendra Garcia M.D. [address] [place] [phone] 11/29/2023 7:45 AM CDT Clinical Communication Virtual Review in [place], [place] 200 [place] [address] 11/30/2023 7:00 AM CDT Appointment Department of Laboratory Medicine and Pathology, [facility], in [place], [place] [address] [place] [phone] Eric Renner M.D. [address] [place] [phone] 11/30/2023 9:00 AM CDT Office Visit Division of Hematology in [place], [place] [address] [place] [phone] Aníbal Reece APRN, C.N.P., M.S.N. [address] [place] [phone] 11/30/2023 12:15 PM CDT Infusion Department of Oncology in [place], [place] [address] [place] [phone] Eric Renner M.D. [address] [place] [phone] 12/20/2023 7:45 AM TELECOMMUNICATIONS CABLE JOINTER Clinical Communication Virtual Review in [place], [place] 200 [place] [address] 12/21/2023 7:00 AM TELECOMMUNICATIONS CABLE JOINTER Appointment Department of Laboratory Medicine and Pathology, [facility], in [place], [place] [address] [place] [phone] Eric Renner M.D. [address] [place] [phone] 12/21/2023 9:00 AM TELECOMMUNICATIONS CABLE JOINTER Office Visit Division of Hematology in [place], [place] [address] [place] [phone] Zulma Hickey APRN, C.NJacquelinP., M.S.N. [address] [place] [phone] 12/21/2023 10:00 AM TELECOMMUNICATIONS CABLE JOINTER Infusion Department of Oncology in [place], [place] [address] [place] [phone] Eric Renner M.D. [address] [place] [phone] 01/11/2024 7:00 AM TELECOMMUNICATIONS CABLE JOINTER Appointment Department of Laboratory Medicine and Pathology, [facility], in [place], [place] [address] [place] [address] Eric Renner M.D. [address] [place] [phone] 01/11/2024 9:00 AM TELECOMMUNICATIONS CABLE JOINTER Office Visit Division of Hematology in [place], [place] [address] [place] [address] Susu Cameron M.D. [address] [place] [phone] 01/11/2024 10:15 AM TELECOMMUNICATIONS CABLE JOINTER Infusion Department of Oncology in [place], [place] [address] [place] [address] Eric Renner M.D. [address] [place] [phone] 01/14/2024 9:15 AM TELECOMMUNICATIONS CABLE JOINTER Diagnostic Department of Otorhinolaryngology in [place], [place] [address] [place] [address] Eric Renner M.D. [address] [place] [phone] Wendy Moon Au.D., C.C.C.-A [address] [place] [phone] 01/14/2024 1:00 PM TELECOMMUNICATIONS CABLE JOINTER Diagnostic Department of Otorhinolaryngology in [place], [place] [address] [place] [address] Eric Renner M.D. [address] [place] [phone] Osiel Middleton Au.D. [address] [place] [phone] 01/14/2024 4:00 PM TELECOMMUNICATIONS CABLE JOINTER Clinical Support Department of Otorhinolaryngology in [place], [place] [address] [place] [phone] Eric Renner M.D. [address] [place] [phone] Taj Nicolas, P.TJacquelin [address] [place] [phone] documented as of this encounter Visit Diagnoses Not on filedocumented in this encounter Additional Health Concerns Infection Onset Date Last Indicated Resolved Time Protective Environment 09/19/2023 09/19/2023 documented as of this encounter Care Teams Marketing Education Teacher Relationship Specialty Start Date End Date Elsewhere, Pcp PCP - General Internal Medicine 08/21/23 documented as of this encounter
--- OUTSIDE RECORDS SUMMARY | 2023-11-20 19:22 | XMS_ITS | Encounter Summary ---
Author Organization [facility] Address [address] [place] [address] Care Team Providers Care Patternmaker Hand Name Role Phone Elsewhere, Pcp Primary Care Provider Unavailabl e Reason for Visit * Episode Based Medications (Routine) - Authorized Specialty Diagnoses / Procedures Referred By Julio t Referred To Contact Diagnoses 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) Procedures NE ONDANSETRON HCL INJECTION NE PALONOSETRON HCL NE RITUXIMAB-ABBS 10MG INJ NE VINCRISTINE SULFATE 1 MG INJ INJ, CYCLOPHOSPHAMIDE, NOS NE DOXORUBIC HCL 10 MG VL CHEMO Eric Renner M.D. [address] [place] [phone] Rst Hem [place] [address] [place] [phone] Referral ID Status Reason Start Date Expiration Date V isits Requested Visits Authorized [id number] Authorized 09/18/2023 09/18/2024 1 99 Encounter Details Date Type Department Care Team (Late st Contact Info) Description 10/19/2023 7:30 AM CDT Infusion Department of Oncology in [place], [place] [address] [place] [phone] Eric Renner M.D. 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 I have a [facility] place to live 08/15/2023 Sex and [...] CDT Office Visit Department of Otorhinolaryngology in [place], [place] [address] [place] [phone] Kendra Garcia M.D. [address] [place] [phone] 11/29/2023 7:45 AM CDT Clinical Communication Virtual Review in [place], [place] [address] [place] [address] 11/30/2023 7:00 AM CDT Appointment Department of Laboratory Medicine and Pathology, [facility] in [place], [place] [address] [place] [phone] Eric Renner M.D. [address] [place] [phone] 11/30/2023 9:00 AM CDT Office Visit Division of Hematology in [place], [place] [address] [place] [phone] Aníbal Reece, FAVIOLA, C.N.P., M.S.N. [address] [place] [phone] 11/30/2023 12:15 PM CDT Infusion Department of Oncology in [place], [place] [address] [place] [phone] Eric Renner M.D. [address] [place] [phone] 12/20/2023 7:45 AM DIRECTOR OF PSYCHIATRY Clinical Communication Virtual Review in [place], [place] [address] [place] [address] 12/21/2023 7:00 AM DIRECTOR OF PSYCHIATRY Appointment Department of Laboratory Medicine and Pathology, [facility] in [place], [place] [address] [place] [phone] Eric Renner M.D. [address] [place] [phone] 12/21/2023 9:00 AM DIRECTOR OF PSYCHIATRY Office Visit Division of Hematology in [place], [place] [address] [place] [address] Zulma Hickey APRN, C.N.P., M.S.N. [address] [place] [phone] 12/21/2023 10:00 AM DIRECTOR OF PSYCHIATRY Infusion Department of Oncology in [place], [place] [address] [place] [address] Eric Renner M.D. [address] [place] [phone] 01/11/2024 7:00 AM DIRECTOR OF PSYCHIATRY Appointment Department of Laboratory Medicine and Pathology, [facility] in [place], [place] [address] [place] [address] Eric Renner M.D. [address] [place] [phone] 01/11/2024 9:00 AM DIRECTOR OF PSYCHIATRY Office Visit Division of Hematology in [place], [place] [address] [place] [address] Susu Cameron M.D. [address] [place] [phone] 01/11/2024 10:15 AM DIRECTOR OF PSYCHIATRY Infusion Department of Oncology in [place], [place] [address] [place] [address] Eric Renner M.D. [address] [place] [phone] 01/14/2024 9:15 AM DIRECTOR OF PSYCHIATRY Diagnostic Department of Otorhinolaryngology in [place], [place] [address] [place] [phone] Eric Renner M.D. [address] [place] [phone] Wendy Moon Au.D., C.CJacquelinCJacquelin-A [address] [place] [phone] 01/14/2024 1:00 PM DIRECTOR OF PSYCHIATRY Diagnostic Department of Otorhinolaryngology in [place], [place] [address] [place] [phone] Eric Renner M.D. [address] [place] [phone] Osiel Middleton Au.D. [address] [place] [phone] 01/14/2024 4:00 PM DIRECTOR OF PSYCHIATRY Clinical Support Department of Otorhinolaryngology in [place], [place] [address] [place] [phone] Eric Renner M.D. [address] [place] [phone] Taj Nicolas, P.TJacquelin [address] [place] [phone] documented as of this encounter Visit Diagnoses Diagnosis 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)- Primary documented in this encounter Administered Medications Inactive Administered Medications - up to 3 most recent administrations Medication Order MAR Action Action Date Dose Rate Site acetaminophen tablet 650 mg (TylenoL) 650 mg, oral, Once, On Sun10/19/23 at 0815, For 1 dose, Administer 30 minutes prior to riTUXimab. Given 10/19/2023 8:10 AM CDT 650 mg cycloPHOSphamide 1,500 mg in NaCl 0.9% 350 mL IVPB (Cytoxan) 1,500 mg (rounded from 1,462.5 mg = 750 mg/m2 ? 1.95 m2 Treatment Plan BSA from Measured weight), intravenous, at 700 mL/hr, Administer over 30 Minutes, Once, On Sun10/19/23 at 1045, For 1 dose New Bag 10/19/2023 12:25 PM CDT 1,500 mg 700 mL/hr diphenhydrAMINE injection 25 mg (BenadryL) 25 mg, intravenous, Once, On Sun10/19/23 at 0815, For 1 dose, Administer 30 minutes prior to riTUXimab. Given 10/19/2023 8:10 AM CDT 25 mg DOXOrubicin injection 100 mg (Adriamycin) 100 mg (rounded from 97.5 mg = 50 mg/m2 ? 1.95 m2 Treatment Plan BSA from Measured weight), intravenous, Administer over 10 Minutes, Once, On Sun10/19/23 at 1015, For 1 dose, Administer IV push through a free flowing IV of 0.9% NaCL over approximately 10 minutes via Y-site. Protect from light. Given 10/19/2023 12:11 PM CDT 100 mg fosaprepitant in NaCl 0.9% IVPB 150 mg (Emend) 150 mg, intravenous, at 500 mL/hr, Administer over 30 Minutes, Once, On Sun10/19/23 at 1015, For 1 dose, Incompatible with solutions containing divalent cations (calcium, magnesium) including lactated Ringer's solution. If oral aprepitant ordered, discontinue IV fosaprepitant., Restriction Criteria (Pharmacy will review and approve if criteria met): Prescribing under the direction of Hematology/Oncology New Bag 10/19/2023 8:15 AM CDT 150 mg 500 mL/hr palonosetron injection 0.25 mg (Aloxi) 0.25 mg, intravenous, Once, On Sun10/19/23 at 1015, For 1 dose Given 10/19/2023 8:10 AM CDT 0.25 mg riTUXimab-abbs 700 mg in NaCl 0.9% IVPB (Truxima) 700 mg (rounded from 731.25 mg = 375 mg/m2 ? 1.95 m2 Treatment Plan BSA from Measured weight), intravenous, Once, On Sun10/19/23 at 0845, For 1 dose, Proceed with initial rate of 100 mg/hr and increase by 100 mg/hr every 30 minutes to a maximum of 400 mg/hr., Restriction Criteria (Pharmacy will review and approve if criteria met): Meets rituximab algorithm criteria Rate/Dose Change 10/19/2023 10:40 AM CDT 400 mL/hr Rate/Dose Change 10/19/2023 10:08 AM CDT 300 mL /hr Rate/Dose Change 10/19/2023 9:38 AM CDT 200 mL/ hr vinCRIStine 2 mg in NaCl 0.9% 60 mL IVPB (Oncovin) 2 mg (set by rule on 09/18/2023 3:34 PM), intravenous, Administer over 10 Minutes, Once, On Sun10/19/23 at 1015, For 1 dose, Not to exceed 2 mg per dose. For Intravenous Use Only -- FATAL if given INTRATHECALLY. If being given via PERIPHERAL IV, medication MUST be administered by gravity. If being given via CENTRAL LINE, medication may be administered by pump or gravity. Protect from light. New Bag 10/19/2023 12:21 PM CDT 2 mg documented in this encounter Additional Health Concerns Infection Onset Date Last Indicated Resolved Time Protective Environment 09/19/2023 09/19/2023 documented as of this encounter Care Teams Patternmaker Hand Relationship Specialty Start Date End Date Elsewhere, Pcp PCP - General Internal Medicine 08/21/23 documented as of this encounter
--- OUTSIDE RECORDS SUMMARY | 2023-11-20 19:22 | XMS_ITS | Encounter Summary ---
Author Organization [facility] Address [address] [place] [address] Care Team Providers Care Photographic Lithographer Name Role Phone Elsewhere, Pcp Primary Care Provider Unavailabl e Reason for Visit * Reason Onset Date Comments Results 11/02/2023 Encounter Details Date Type Department Care Team (Late st Contact Info) Description 11/02/2023 Clinical Communication Division of Hematology in [place], [place] [address] [place] [address] Eric Renner M.D. [address] [place] [address] Results Social History Tobacco Use Types Packs/Day Years Used Date Smoking Tobacco: Every Day Cigarettes 1.5 81.8 Started: 02/12/1982 Smokeless Tobacco: Never Alcohol Use Standard Drinks/Week Comments Not Currently 0 (1 standard drink = 0.6 oz pur e alcohol) rarely [facility] Utilities Answer Date Recorded In the past 12 months has 20:20 [employer], gas, oil, or water [employer] threatened to shut off services in your [...] living situation today? I have a [facility] place to live 08/15/2023 Sex and Gender Information Value Date Recorded Sex Assigned at Female 08/15/2023 7:51 AM CDT Gender Identity Female 08/15/2023 7:51 AM CDT Sexual Orientation Straight 08/15/2023 7: 51 AM CDT documented as of this encounter Miscellaneous Notes * Telephone Encounter - Mely Vergara, R.N. - 11/02/2023 2:04 PM CDT SUBJECTIVE CHIEF COMPLAINT / REASON FOR CALL Results DLBCL, advanced stage R-CHOP Cycle 2, 10/18. No growth factor. Weekly labs WBC 7.71, ANC 0.6 Neutropenic precautions discussed with patient including good handwashing and oral hygiene, use of high filter mask, avoiding congested public areas and others with upper respiratory symptoms. Patient instructed to be evaluated urgently with fever of 100.4 F or higher, or a temperature of 100.0 F for more than one hour, or shaking chills regardless of temperature. Patient is feeling well. No complaints. Test Result Information: Resulted Orders CBC with Differential, Blood Result Value Ref Range EXT Leukocytes 1.71 (L) 4.50 - 11.00 K/uL EXT RBC 4.04 4.00 - 5.20 m/uL EXT Hemoglobin 12.7 12.0 - 16.0 gm/dL EXT Hematocrit 39.1 33.0 - 51.0 % EXT MCV 97 80 - 100 fL EXT Platelet Count 163 140 - 440 K/uL EXT Neutrophils 0.60 (L) 1.7 - 7.0 K/uL EXT Lymphocytes 0.80 (L) 0.90 - 2.90 K/uL EXT Monocytes 0.20 0.00 - 0.90 K/UL EXT Eosinophils 0.00 0.00 - 0.50 K/uL EXT Basophils 0.00 0.00 - 0.30 K/uL Narrative External results verified in Extract by Zulma Ray on 11/02/2023 at 07:49 AM. Virgil Disposition/Recommendation: self-care is appropriate at this time, patient encouraged to call back with questions Information/Education: patient/caller able to teach back Caller agreeable to plan of care: yes documented in this encounter Plan of Treatment Upcoming Encounters Date Type Department Care Team (Latest Contact Info) Description 11/28/2023 2:15 PM CDT Office Visit Department of Otorhinolaryngology in [place], [place] [address] [place] [phone] Kendra Garcia M.D. [address] [place] [phone] 11/29/2023 7:45 AM CDT Clinical Communication Virtual Review in [place], [place] 200 [place] [address] 11/30/2023 7:00 AM CDT Appointment Department of Laboratory Medicine and Pathology, [facility], in [place], [place] [address] [place] [phone] Eric Renner M.D. [address] [place] [phone] 11/30/2023 9:00 AM CDT Office Visit Division of Hematology in [place], [place] [address] [place] [phone] Aníbal Reece APRN, C.NMaggi., M.S.N. [address] [place] [phone] 11/30/2023 12:15 PM CDT Infusion Department of Oncology in [place], [place] [address] [place] [phone] Eric Renner M.D. [address] [place] [phone] 12/20/2023 7:45 AM SALES AND SUPPORT CENTER AGENT Clinical Communication Virtual Review in [place], [place] 200 [place] [address] 12/21/2023 7:00 AM SALES AND SUPPORT CENTER AGENT Appointment Department of Laboratory Medicine and Pathology, [facility] in [place], [place] [address] [place] [phone] Eric Renner M.D. [address] [place] [phone] 12/21/2023 9:00 AM SALES AND SUPPORT CENTER AGENT Office Visit Division of Hematology in [place], [place] [address] [place] [phone] Zulma Hickey APRN, C.NMaggi., M.S.N. [address] [place] [phone] 12/21/2023 10:00 AM SALES AND SUPPORT CENTER AGENT Infusion Department of Oncology in [place], [place] [address] [place] [phone] Eric Renner M.D. [address] [place] [phone] 01/11/2024 7:00 AM SALES AND SUPPORT CENTER AGENT Appointment Department of Laboratory Medicine and Pathology, [facility], in [place], [place] [address] [place] [phone] Eric Renner M.D. [address] [place] [address] 01/11/2024 9:00 AM SALES AND SUPPORT CENTER AGENT Office Visit Division of Hematology in [place], [place] [address] [place] [address] Susu Cameron M.D. [address] [place] [address] 01/11/2024 10:15 AM SALES AND SUPPORT CENTER AGENT Infusion Department of Oncology in [place], [place] [address] [place] [address] Eric Renner M.D. [address] [place] [phone] 01/14/2024 9:15 AM SALES AND SUPPORT CENTER AGENT Diagnostic Department of Otorhinolaryngology in [place], [place] [address] [place] [address] Eric Renner M.D. [address] [place] [phone] Wendy Moon Au.D., C.C.CJacquelin-A [address] [place] [phone] 01/14/2024 1:00 PM SALES AND SUPPORT CENTER AGENT Diagnostic Department of Otorhinolaryngology in [place], [place] [address] [place] [address] Eric Renner M.D. [address] [place] [phone] Osiel Middleton Au.D. [address] [place] [address] 01/14/2024 4:00 PM SALES AND SUPPORT CENTER AGENT Clinical Support Department of Otorhinolaryngology in [place], [place] [address] [place] [phone] Eric Renner M.D. [address] [place] [phone] Taj Nicolas, P.T. [address] [place] [phone] documented as of this encounter Visit Diagnoses Not on filedocumented in this encounter Additional Health Concerns Infection Onset Date Last Indicated Resolved Time Protective Environment 09/19/2023 09/19/2023 documented as of this encounter Care Teams Photographic Lithographer Relationship Specialty Start Date End Date Elsewhere, Pcp PCP - General Internal Medicine 08/21/23 documented as of this encounter
--- OUTSIDE RECORDS SUMMARY | 2023-11-20 19:22 | XMS_ITS | Encounter Summary ---
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 [address] [place] [phone] [address] [place] [address] [place] [phone] Referral ID Status Reason Start Date Expiration Date V isits Requested Visits Authorized [id number] Authorized 09/18/2023 09/18/2024 1 99 Encounter Details Date Type Department Care Team (Late st Contact Info) Description 11/09/2023 9:00 AM CDT Office Visit Division of Hematology in [place], [place] [address] [place] [phone] Eric Renner M.D. 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 I have a [facility] place to live 08/15/2023 Sex and Gender Information Value Date Recorded Sex Assigned at Female 08/15/2023 7:51 AM CDT Gender Identity Female 08/15/2023 7:51 AM CDT Sexual Orientation Straight 08/15/2023 7: 51 AM CDT documented as of this encounter Last Filed Vital Signs Vital Sign Reading Time Taken Comments Blood Pressure 112/72 11/09/2023 8:42 AM CDT Pulse 123 11/09/2023 8:42 AM CDT Temperature 36.1 ??C (97 ??F) 11/09/2023 8:42 AM CDT Respiratory Rate - - Oxygen Saturation 91% 11/09/2023 8:42 AM CDT Inhaled Oxygen Concentration - - Weight 80.6 kg (177 lb 9.3 oz) 11/09/2023 8:42 A M CDT Height 166.6 cm (5' 5.59) 11/09/2023 8:42 AM CD T Body Mass Index 29.02 11/09/2023 8:42 AM CDT documented in this encounter Progress Notes * Eric Renner M.D. - 11/09/2023 9:00 AM CDT Images from the original note were not included. SUBJECTIVE REFERRING PROVIDER Jose Zhang M.D. REASON FOR VISIT DLBCL, advanced stage IPI24: 33% event risk in 24mo LOG POND WORKER-IPI: 3 (intermediate risk) R-IPI: 2 (good prognosis) M-spike: absent Peripheral blood flow: No clonal B-cell population 1L: R-CHOP HISTORY OF PRESENT ILLNESS Patient is a 53 y.o. woman with previous medical history significant for tobacco use, hyperlipidemia, type 2 diabetes, COPD, and major depressive disorder with psychotic features, whose hematologicalhistory may be summarized as follows: August 07, 2023: MRI of the pelvis with and without contrast obtained to evaluate persistent/progressive pain of the left hip reportedly showed abnormalities on the left hip. Images not reviewed by [facility]. 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 September 14, 2023: Baseline PET-CT shows intensely FDG avid left pelvic mass along with FDG avid lymphadenopathy below diaphragm including spleen. September 28, 2023: Start of frontline therapy with R-CHOP. INTERVAL HISTORY Returns to clinic prior to cycle 3 of frontline therapy with R-CHOP for DLBCL. Last visit on October 17, 2023. In this interim she completed 2nd cycle of therapy, without major events. On my interview today she denies any significant change in baseline neuropathy. MEDICATIONS Reviewed REVIEW OF SYSTEMS All systems reviewed and negative except for HPI. OBJECTIVE Vitals: 11/09/23 0842 BP: 112/72 Patient Position: Sitting Pulse: (!) 123 Temp: 36.1 ??C Height: 166.6 cm Weight: 80.6 kg SpO2: 91% TempSrc: Tympanic Body surface area is 1.93 meters squared. PHYSICAL EXAM BP 112/72 (BP Location: Right arm, Patient Position: Sitting, Cuff Size: Regular) Pulse (!) 123 Temp 36.1 ??C (Tympanic) Ht 166.6 cm Wt 80.6 kg SpO2 91% BMI 29.02 kg/m?? Wt Readings from Last 3 Encounters: 11/09/23 80.6 kg 10/17/23 80 kg 09/28/23 84.1 kg General: Accompanied by . No acute distress. ECOG performance status is 0. Eyes: Examined and normal. ENT: No oral lesions or thrush. Heart: Regular rate and rhythm, S1 and S2 presents, no murmurs or gallops. Lungs: Symmetric expansion, no crackles, rales, rhonchi or wheezing. Abdomen: Soft, not tender to palpation, no peritoneal signs. No palpable masses or organomegaly. Spine: No tenderness to palpation or percussion of the entire spine. Joints: Examined and normal. Extremities: No clubbing, cyanosis, or edema. Neuro: Grossly nonfocal. Skin: No rash on limited examination. DIAGNOSTICS I have reviewed the recent relevant labs, CT, and diagnostics. LABORATORY Recent Results (from the past 72 hour(s)) CBC with Differential, Blood Collection Time: 11/09/23 7:13 AM Result Value Hemoglobin 13.7 Hematocrit 41.5 Erythrocytes 4.29 MCV 96.7 RBC Distrib Width 15.2 Platelet Count 282 Leukocytes 9.0 Neutrophils 6.96 (H) Lymphocytes 0.90 (L) Monocytes 1.01 (H) Eosinophils <0.03 Basophils 0.07 Comprehensive Metabolic Panel Collection Time: 11/09/23 7:13 AM Result Value Potassium, S 5.1 Sodium, S 146 (H) Chloride, S 109 (H) Bicarbonate, S 26 Anion Gap 11 BUN (Blood Urea Nitrogen), S 8 Creatinine 0.86 Estimated GFR (eGFR) 80 Calcium, Total, S 9.5 Glucose, S 110 Protein, Total, S 6.2 (L) Albumin, S 4.0 Aspartate Aminotransferase (AST), S 20 Alkaline Phosphatase, S 112 (H) Alanine Aminotransferase (ALT), S 24 Bilirubin, Total, S <0.2 RADIOLOGY Reviewed reports, per HPI. PATHOLOGY Reviewed report, per HPI. ASSESSMENT / PLAN #1 DLBCL, advanced stage Returns to clinic prior to cycle 3 of R-CHOP for DLBCL. Tolerated cycle 2 without major issues. Interim PET-CT shows a great response. Will proceed with cycle 3 as scheduled, without dose reductions. Follow-up: Return to clinic before next cycle Education We discussed the diagnosis and treatment plan in detail. The patient expressed understanding of thecontent. No apparent learning barriers were identified; learning preferences include listening. No orders of the defined types were placed in this encounter. Signed by: Bandar Monzon M.D. 11/09/2023 documented in this encounter Plan of Treatment Upcoming Encounters Date Type Department Care Team (Latest Contact Info) Description 11/28/2023 2:15 PM CDT Office Visit Department of Otorhinolaryngology in [address] [phone] Kendra Garcia M.D. [address] [place] [phone] 11/29/2023 7:45 AM CDT Clinical Communication Virtual Review in [place], [place] 200 [place] [phone] 11/30/2023 7:00 AM CDT Appointment Department of Laboratory Medicine and Pathology, [facility], in [address] [phone] Eric Renner M.D. [address] [place] [phone] 11/30/2023 9:00 AM CDT Office Visit Division of Hematology in [address] [phone] Aníbal Reece APRN, C.N.Ad., M.S.N. [address] [place] [phone] 11/30/2023 12:15 PM CDT Infusion Department of Oncology in [place], [place] [address] [place] [phone] Eric Renner M.D. [address] [place] [phone] 12/20/2023 7:45 AM ZIG ZAG SPRING MACHINE OPERATOR Clinical Communication Virtual Review in [place], [place] 200 [place] [phone] 12/21/2023 7:00 AM ZIG ZAG SPRING MACHINE OPERATOR Appointment Department of Laboratory Medicine and Pathology, [facility] in [place], [place] [address] [place] [phone] Eric Renner M.D. [address] [place] [phone] 12/21/2023 9:00 AM ZIG ZAG SPRING MACHINE OPERATOR Office Visit Division of Hematology in [address] [phone] Zulma Hickey APRN, C.N.Ad., M.S.N. [address] [place] [phone] 12/21/2023 10:00 AM ZIG ZAG SPRING MACHINE OPERATOR Infusion Department of Oncology in [place], [place] [address] [place] [phone] Eric Renner M.D. [address] [place] [phone] 01/11/2024 7:00 AM ZIG ZAG SPRING MACHINE OPERATOR Appointment Department of Laboratory Medicine and Pathology, [facility] in [address] [phone] Eric Renner M.D. [address] [place] [address] 01/11/2024 9:00 AM ZIG ZAG SPRING MACHINE OPERATOR Office Visit Division of Hematology in [place], [place] [address] [place] [address] Susu Cameron M.D. [address] [place] [phone] 01/11/2024 10:15 AM ZIG ZAG SPRING MACHINE OPERATOR Infusion Department of Oncology in [place], [place] [address] [place] [address] Eric Renner M.D. [address] [place] [phone] 01/14/2024 9:15 AM ZIG ZAG SPRING MACHINE OPERATOR Diagnostic Department of Otorhinolaryngology in [place], [place] [address] [place] [address] Eric Renner M.D. [address] [place] [phone] Wendy Moon Au.D., C.C.CJacquelin-A [address] [place] [phone] 01/14/2024 1:00 PM ZIG ZAG SPRING MACHINE OPERATOR Diagnostic Department of Otorhinolaryngology in [place], [place] [address] [place] [address] Eric Renner M.D. [address] [place] [phone] Osiel Middleton Au.D. [address] [place] [phone] 01/14/2024 4:00 PM ZIG ZAG SPRING MACHINE OPERATOR Clinical Support Department of Otorhinolaryngology in [place], [place] [address] [place] [phone] Eric Renner M.D. 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
--- OUTSIDE RECORDS SUMMARY | 2023-11-20 19:22 | XMS_ITS | Encounter Summary ---
Author Organization [facility] Address [address] [place] [address] Care Team Providers Care Freezer Unloader Name Role Phone Elsewhere, Pcp Primary Care Provider Unavailabl e Encounter Details Date Type Department Care Team (Late st Contact Info) Description 11/01/2023 Orders Only Division of Hematology in [place], [place] [address] [place] [address] External, Ordering Provider, Alonzo Social History Tobacco Use Types Packs/Day Years Used Date Smoking Tobacco: Every Day Cigarettes 1.5 81.8 Started: 02/12/1982 Smokeless Tobacco: Never Alcohol Use Standard Drinks/Week Comments Not Currently 0 (1 standard drink = 0.6 oz pur e alcohol) rarely [facility] Utilities Answer Date Recorded In [...] Answer Date Recorded Employment status Unemployed/not in [employer] paid workforce but seeking employment 08/15/2023 Housing Stability Answer Date Recorded What is your living situation today? I have a [facility] place to live 08/15/2023 Sex and [...] CDT Office Visit Department of Otorhinolaryngology in [place], [place] [address] [place] [phone] Kendra Garcia M.D. [address] [place] [phone] 11/29/2023 7:45 AM CDT Clinical Communication Virtual Review in [place], [place] 200 [place] [address] 11/30/2023 7:00 AM CDT Appointment Department of Laboratory Medicine and Pathology, [facility], in [place], [place] [address] [place] [phone] Eric Renner M.D. [address] [place] [phone] 11/30/2023 9:00 AM CDT Office Visit Division of Hematology in [place], [place] [address] [place] [phone] Aníbal Reece APRN, C.N.Ad., M.S.N. [address] [place] [phone] 11/30/2023 12:15 PM CDT Infusion Department of Oncology in [place], [place] [address] [place] [phone] Eric Renner M.D. [address] [place] [phone] 12/20/2023 7:45 AM EPITAXIAL REACTOR OPERATOR Clinical Communication Virtual Review in [place], [place] 200 [place] [address] 12/21/2023 7:00 AM EPITAXIAL REACTOR OPERATOR Appointment Department of Laboratory Medicine and Pathology, [facility] in [place], [place] [address] [place] [phone] Eric Renner M.D. [address] [place] [phone] 12/21/2023 9:00 AM EPITAXIAL REACTOR OPERATOR Office Visit Division of Hematology in [place], [place] [address] [place] [phone] Zulma Hickey APRN, C.NMaggi., M.S.N. [address] [place] [phone] 12/21/2023 10:00 AM EPITAXIAL REACTOR OPERATOR Infusion Department of Oncology in [place], [place] [address] [place] [phone] Eric Rennre M.D. [address] [place] [phone] 01/11/2024 7:00 AM EPITAXIAL REACTOR OPERATOR Appointment Department of Laboratory Medicine and Pathology, [facility] in [place], [place] [address] [place] [phone] Eric Renner M.D. [address] [place] [address] 01/11/2024 9:00 AM EPITAXIAL REACTOR OPERATOR Office Visit Division of Hematology in [place], [place] [address] [place] [address] Susu Cameron M.D. [address] [place] [phone] 01/11/2024 10:15 AM EPITAXIAL REACTOR OPERATOR Infusion Department of Oncology in [place], [place] [address] [place] [address] Eric Renner M.D. [address] [place] [phone] 01/14/2024 9:15 AM EPITAXIAL REACTOR OPERATOR Diagnostic Department of Otorhinolaryngology in [place], [place] [address] [place] [address] Eric Renner M.D. [address] [place] [phone] Wendy Moon Au.D., C.C.CJacquelin-A [address] [place] [phone] 01/14/2024 1:00 PM EPITAXIAL REACTOR OPERATOR Diagnostic Department of Otorhinolaryngology in [place], [place] [address] [place] [address] Eric Renner M.D. [address] [place] [phone] Osiel Middleton Au.D. [address] [place] [phone] 01/14/2024 4:00 PM EPITAXIAL REACTOR OPERATOR Clinical Support Department of Otorhinolaryngology in [place], [place] [address] [place] [phone] Eric Renner M.D. [address] [place] [phone] Taj Nicolas P.T. [address] [place] [phone] documented as of this encounter Procedures Procedure Name Priority Date/Time Associated Diagnosis Comments CBC WITH DIFFERENTIAL, B Routine 11/01/2023 10:15 AM CDT documented in this encounter Results * (ABNORMAL) CBC with Differential, Blood (11/01/2023 10:15 AM CDT) EXT Leukocytes 1.71(L) 4.50 - 11.00 K/uL [facility] EXT RBC 4.04 4.00 - 5.20 m/uL [facility] EXT Hemoglobin 12.7 12.0 - 16.0 gm/dL [facility] EXT Hematocrit 39.1 33.0 - 51.0 % [facility] EXT MCV 97 80 - 100 fL [facility] EXT Platelet Count 163 140 - 440 K/uL [facility] EXT Neutrophils 0.60(L) 1.7 - 7.0 K/uL [facility] EXT Lymphocytes 0.80(L) 0.90 - 2.90 K/uL [facility] EXT Monocytes 0.20 0.00 - 0.90 K/UL [facility] EXT Eosinophils 0.00 0.00 - 0.50 K/uL [facility] EXT Basophils 0.00 0.00 - 0.30 K/uL [facility] 11/01/2023 10:1 5 AM CDT Narrative [facility] - 11/01/2023 3:56 PM CDT External results verified in Extract by Zulma Ray on 11/02/2023 at 07:49 AM. Virgil Ordering Provider Gonzales Rosado LAB ASHUTOSH Benavidez ADD-ON [facility] [address] [place] [address] documented in this encounter Visit Diagnoses Not on filedocumented in this encounter Additional Health Concerns Infection Onset Date Last Indicated Resolved Time Protective Environment 09/19/2023 09/19/2023 documented as of this encounter Care Teams Freezer Unloader Relationship Specialty Start Date End Date Elsewhere, Pcp PCP - General Internal Medicine 08/21/23 documented as of this encounter
--- OUTSIDE RECORDS SUMMARY | 2023-11-20 19:22 | XMS_ITS | Encounter Summary ---
Author Organization [facility] Address [address] [place] [address] Care Team Providers Care Pipe Fittings Molder Name Role Phone Elsewhere, Pcp Primary Care Provider Unavailabl e Reason for Visit * Reason Onset Date Comments Previsit Preparation 11/07/2023 TAMRA DD Encounter Details Date Type Department Care Team (Latest Contact Info) Description 11/07/2023 10:00 AM CDT Clinical Communication Virtual Review in [place], [place] 200 [place] [address] Previsit Preparation (TAMRA DD) Social History Tobacco Use Types Packs/Day Years Used Date Smoking Tobacco: Every Day Cigarettes 1.5 81.8 Started: 02/12/1982 Smokeless Tobacco: Never Tobacco Cessation:Ready to Q uit: Not Asked; Counseling Given: Not Answered Alcohol Use Standard Drinks/Week Comments Not Currently 0 (1 standard drink = 0.6 oz pur e alcohol) rarely [facility] Utilities Answer Date Recorded In the past 12 months has e [employer] gas, oil, or water [employer] threatened to shut off services in your [...] your living situation today? I have a [facility] place to live 08/15/2023 Sex and Gender Information Value Date Recorded Sex Assigned at Female 08/15/2023 7:51 AM CDT Gender Identity Female 08/15/2023 7:51 AM CDT Sexual Orientation Straight 08/15/2023 7: 51 AM CDT documented as of this encounter Plan of Treatment Upcoming Encounters Date Type Department Care Team (Latest Contact Info) Description 11/28/2023 2:15 PM CDT Office Visit Department of Otorhinolaryngology in [place], [place] [address] [place] [phone] Kendra Garcia M.D. [address] [place] [phone] 11/29/2023 7:45 AM CDT Clinical Communication Virtual Review in [place], [place] 200 [place] [address] 11/30/2023 7:00 AM CDT Appointment Department of Laboratory Medicine and Pathology, [facility], in [place], [place] [address] [place] [phone] Eric Renner M.D. [address] [place] [phone] 11/30/2023 9:00 AM CDT Office Visit Division of Hematology in [place], [place] [address] [place] [phone] Aníbal Reece APRN, C.N.P., M.S.N. [address] [place] [phone] 11/30/2023 12:15 PM CDT Infusion Department of Oncology in [place], [place] [address] [place] [phone] Eric Renner M.D. [address] [place] [phone] 12/20/2023 7:45 AM BAR WELDER Clinical Communication Virtual Review in [place], [place] 200 [place] [address] 12/21/2023 7:00 AM BAR WELDER Appointment Department of Laboratory Medicine and Pathology, [facility] in [place], [place] [address] [place] [phone] Eric Renner M.D. [address] [place] [phone] 12/21/2023 9:00 AM BAR WELDER Office Visit Division of Hematology in [place], [place] [address] [place] [phone] Zulma Hickey APRN, C.N.P., M.S.N. [address] [place] [phone] 12/21/2023 10:00 AM BAR WELDER Infusion Department of Oncology in [place], [place] [address] [place] [phone] Eric Renner M.D. [address] [place] [phone] 01/11/2024 7:00 AM BAR WELDER Appointment Department of Laboratory Medicine and Pathology, [facility], in [place], [place] [address] [place] [address] Eric Renner M.D. [address] [place] [phone] 01/11/2024 9:00 AM BAR WELDER Office Visit Division of Hematology in [place], [place] [address] [place] [address] Susu Cameron M.D. [address] [place] [phone] 01/11/2024 10:15 AM BAR WELDER Infusion Department of Oncology in [place], [place] [address] [place] [address] Eric Renner M.D. [address] [place] [phone] 01/14/2024 9:15 AM BAR WELDER Diagnostic Department of Otorhinolaryngology in [place], [place] [address] [place] [address] Eric Renner M.D. [address] [place] [phone] Wendy Moon Au.D., C.C.C.-A [address] [place] [phone] 01/14/2024 1:00 PM BAR WELDER Diagnostic Department of Otorhinolaryngology in [place], [place] [address] [place] [address] Eric Renner M.D. [address] [place] [phone] Osiel Middleton Au.D. [address] [place] [phone] 01/14/2024 4:00 PM BAR WELDER Clinical Support Department of Otorhinolaryngology in [place], [place] [address] [place] [phone] Eric Renner M.D. [address] [place] [phone] Taj Nicolas, PJacquelinTJacquelin [address] [place] [phone] documented as of this encounter Visit Diagnoses Not on filedocumented in this encounter Additional Health Concerns Infection Onset Date Last Indicated Resolved Time Protective Environment 09/19/2023 09/19/2023 documented as of this encounter Care Teams Pipe Fittings Molder Relationship Specialty Start Date End Date Elsewhere, Pcp PCP - General Internal Medicine 08/21/23 documented as of this encounter
--- OUTSIDE RECORDS SUMMARY | 2023-11-20 19:22 | XMS_ITS | Encounter Summary ---
Author Organization [facility] Address [address] [place] [address] Care Team Providers Care Transportation Job Titles Name Role Phone Elsewhere, Pcp Primary Care Provider Unavailabl e Encounter Details Date Type Department Care Team (Late st Contact Info) Description 10/23/2023 Orders Only Division of Hematology in [place], [place] [address] [place] [address] Eric Renner M.D. 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 I have a [facility] place to live 08/15/2023 Sex and Gender Information Value Date Recorded Sex Assigned at Female 08/15/2023 7:51 AM CDT Gender Identity Female 08/15/2023 7:51 AM CDT Sexual Orientation Straight 08/15/2023 7: 51 AM CDT documented as of this encounter Plan of Treatment Upcoming Encounters Date Type Department Care Team (Latest Contact Info) Description 11/28/2023 2:15 PM CDT Office Visit Department of Otorhinolaryngology in [place], [place] [address] [place] [phone] Kendra Garcia M.D. [address] [place] [phone] 11/29/2023 7:45 AM CDT Clinical Communication Virtual Review in [place], [place] 200 [place] [phone] 11/30/2023 7:00 AM CDT Appointment Department of Laboratory Medicine and Pathology, [facility], in [place], [place] [address] [place] [phone] Eric Renner M.D. [address] [place] [phone] 11/30/2023 9:00 AM CDT Office Visit Division of Hematology in [place], [place] [address] [place] [phone] Aníbal Reece APRN, C.N.P., M.S.N. [address] [place] [phone] 11/30/2023 12:15 PM CDT Infusion Department of Oncology in [place], [place] [address] [place] [phone] Eric Renner M.D. [address] [place] [phone] 12/20/2023 7:45 AM CHIEF SUPPLY CHAIN OFFICER Clinical Communication Virtual Review in [place], [place] 200 [place] [address] 12/21/2023 7:00 AM CHIEF SUPPLY CHAIN OFFICER Appointment Department of Laboratory Medicine and Pathology, [facility], in [place], [place] [address] [place] [phone] Eric Renner M.D. [address] [place] [phone] 12/21/2023 9:00 AM CHIEF SUPPLY CHAIN OFFICER Office Visit Division of Hematology in [place], [place] [address] [place] [phone] Zulma Hickey APRN, C.NMaggi., M.S.N. [address] [place] [phone] 12/21/2023 10:00 AM CHIEF SUPPLY CHAIN OFFICER Infusion Department of Oncology in [place], [place] [address] [place] [phone] Eric Renner M.D. [address] [place] [phone] 01/11/2024 7:00 AM CHIEF SUPPLY CHAIN OFFICER Appointment Department of Laboratory Medicine and Pathology, [facility], in [place], [place] [address] [place] [address] Eric Renner M.D. [address] [place] [phone] 01/11/2024 9:00 AM CHIEF SUPPLY CHAIN OFFICER Office Visit Division of Hematology in [place], [place] [address] [place] [address] Susu Cameron M.D. [address] [place] [phone] 01/11/2024 10:15 AM CHIEF SUPPLY CHAIN OFFICER Infusion Department of Oncology in [place], [place] [address] [place] [address] Eric Renner M.D. [address] [place] [phone] 01/14/2024 9:15 AM CHIEF SUPPLY CHAIN OFFICER Diagnostic Department of Otorhinolaryngology in [place], [place] [address] [place] [address] Eric Renner M.D. [address] [place] [phone] Wendy Moon Au.D., C.C.C.-A [address] [place] [phone] 01/14/2024 1:00 PM CHIEF SUPPLY CHAIN OFFICER Diagnostic Department of Otorhinolaryngology in [place], [place] [address] [place] [address] Eric Renner M.D. [address] [place] [phone] Osiel Middleton Au.D. [address] [place] [phone] 01/14/2024 4:00 PM CHIEF SUPPLY CHAIN OFFICER Clinical Support Department of Otorhinolaryngology in [place], [place] [address] [place] [phone] Eric Renner M.D. [address] [place] [phone] Taj Nicolas, P.TJacquelin [address] [place] [phone] documented as of this encounter Visit Diagnoses Diagnosis 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)- Primary documented in this encounter Additional Health Concerns Infection Onset Date Last Indicated Resolved Time Protective Environment 09/19/2023 09/19/2023 documented as of this encounter Care Teams Transportation Job Titles Relationship Specialty Start Date End Date Elsewhere, Pcp PCP - General Internal Medicine 08/21/23 documented as of this encounter
--- OUTSIDE RECORDS SUMMARY | 2023-11-20 19:22 | XMS_ITS | Encounter Summary ---
Author Organization [facility] Address [address] [place] [id number] Care Team Providers Care Aviation Tactical Readiness Officer Name Role Phone Elsewhere, Pcp Primary Care Provider Unavailabl e Reason for Visit * Reason Onset Date Comments Results 11/01/2023 Encounter Details Date Type Department Care Team ([facility] st Contact Info) Description 11/01/2023 Clinical Communication Division of Hematology in [place], [place] [address] [place] [address] Eric Renner M.D. [address] [place] [address] Results Social History Tobacco Use Types Packs/Day Years Used Date Smoking Tobacco: Every Day Cigarettes 1.5 81.8 Started: 02/12/1982 Smokeless Tobacco: Never Alcohol Use Standard Drinks/Week Comments Not Currently 0 (1 standard drink = 0.6 oz pur e alcohol) rarely [facility] Utilities Answer Date Recorded In the past 12 months has [employer], gas, oil, or water [employer] threatened to shut off services in your [...] your living situation today? I have a [facility] place to live 08/15/2023 Sex and [...] CDT Office Visit Department of Otorhinolaryngology in [place], [place] [address] [place] [phone] Kendra Garcia M.D. [address] [place] [phone] 11/29/2023 7:45 AM CDT Clinical Communication Virtual Review in [place], [place] 200 [place] [phone] 11/30/2023 7:00 AM CDT Appointment Department of Laboratory Medicine and Pathology, [facility], in [place], [place] [address] [place] [phone] Eric Renner M.D. [address] [place] [phone] 11/30/2023 9:00 AM CDT Office Visit Division of Hematology in [place], [place] [address] [place] [phone] Aníbal Reece APRN, C.N.P., M.S.N. [address] [place] [phone] 11/30/2023 12:15 PM CDT Infusion Department of Oncology in [place], [place] [address] [place] [phone] Eric Renner M.D. [address] [place] [phone] 12/20/2023 7:45 AM PCB DESIGN ENGINEER Clinical Communication Virtual Review in [place], [place] 200 [place] [address] 12/21/2023 7:00 AM PCB DESIGN ENGINEER Appointment Department of Laboratory Medicine and Pathology, [facility], in [place], [place] [address] [place] [phone] rEic Renner M.D. [address] [place] [phone] 12/21/2023 9:00 AM PCB DESIGN ENGINEER Office Visit Division of Hematology in [place], [place] [address] [place] [phone] Zulma Hickey APRN, C.NMaggi., M.S.N. [address] [place] [phone] 12/21/2023 10:00 AM PCB DESIGN ENGINEER Infusion Department of Oncology in [place], [place] [address] [place] [phone] Eric Renner M.D. [address] [place] [phone] 01/11/2024 7:00 AM PCB DESIGN ENGINEER Appointment Department of Laboratory Medicine and Pathology, [facility], in [place], [place] [address] [place] [address] Eric Renner M.D. [address] [place] [phone] 01/11/2024 9:00 AM PCB DESIGN ENGINEER Office Visit Division of Hematology in [place], [place] [address] [place] [address] Susu Cameron M.D. [address] [place] [phone] 01/11/2024 10:15 AM PCB DESIGN ENGINEER Infusion Department of Oncology in [place], [place] [address] [place] [address] Eric Renner M.D. [address] [place] [phone] 01/14/2024 9:15 AM PCB DESIGN ENGINEER Diagnostic Department of Otorhinolaryngology in [place], [place] [address] [place] [address] Eric Renner M.D. [address] [place] [phone] Wendy Moon Au.D., C.C.C.-A [address] [place] [phone] 01/14/2024 1:00 PM PCB DESIGN ENGINEER Diagnostic Department of Otorhinolaryngology in [place], [place] [address] [place] [address] Eric Renner M.D. [address] [place] [phone] Osiel Middleton Au.D. [address] [place] [phone] 01/14/2024 4:00 PM PCB DESIGN ENGINEER Clinical Support Department of Otorhinolaryngology in [place], [place] [address] [place] [phone] Eric Renner M.D. [address] [place] [phone] Taj Nicolas, P.TJacquelin [address] [place] [phone] documented as of this encounter Visit Diagnoses Not on filedocumented in this encounter Additional Health Concerns Infection Onset Date Last Indicated Resolved Time Protective Environment 09/19/2023 09/19/2023 documented as of this encounter Care Teams Aviation Tactical Readiness Officer Relationship Specialty Start Date End Date Elsewhere, Pcp PCP - General Internal Medicine 08/21/23 documented as of this encounter
--- OUTSIDE RECORDS SUMMARY | 2023-11-20 19:22 | XMS_ITS | Encounter Summary ---
Author Organization [facility] Address [address] [place] [address] Care Team Providers Care Shellfish Weigher Name Role Phone Elsewhere, Pcp Primary Care Provider Unavailabl e Reason for Referral * MRI/CAT/PET Scan (Routine) - Closed Specialty Diagnoses / Procedures Referred By Julio faustin Referred To Contact Diagnoses 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) Procedures PET CT Whole Body FDG Eric Renner M.D. 200 [place] [address] [facility] Referral ID Status Reason Start Date Expiration Date Visits Re quested Visits Authorized [id number] Closed 11/08/2023 11/07/2024 1 1 Reason for Visit * MRI/CAT/PET Scan (Routine) - Closed Specialty Diagnoses / Procedures Referred By Julio faustin Referred To Contact Radiology Diagnoses 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) Procedures PET CT SKULL TO THIGH FDG RAD NM PET CT SKULL TO THIGH Eric Renner M.D. 200 [place] [address] [address] [facility] [address] [place] [address] Referral ID Status Reason Start Date Expiration Date Visits Re quested Visits Authorized [id number] Closed 11/08/2023 11/07/2024 1 1 Encounter Details Date Type Department Care Team (Latest Contact Info) Description 11/08/2023 1:51 PM CDT - 11/08/2023 11:59 PM CDT Hospital Encounter Department of Radiology, [facility], in [place], [place] [address] [place] [address] Eric Renner M.D. [address] [place] [address] 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) Discharge Disposition: Home or Self Care Social History Tobacco Use Types Packs/Day Years Used Date Smoking Tobacco: Every Day Cigarettes 1.5 81.8 Started: 02/12/1982 Smokeless Tobacco: Never Alcohol Use Standard Drinks/Week Comments Not Currently 0 (1 standard drink = 0.6 oz pur e alcohol) rarely [facility] Utilities Answer Date Recorded In the past 12 months has e [employer], gas, oil, or water [employer] threatened to shut off services in your [...] your living situation today? I have a [facility] place to live 08/15/2023 Sex and Gender [...] chemotherapy if a chemo day) 10 tablet 10/19/2023 11/09/2023 documented as of this encounter Plan of Treatment Upcoming Encounters Date Type Department Care Team (Latest Contact Info) Description 11/28/2023 2:15 PM CDT Office Visit Department of Otorhinolaryngology in [place], [place] [address] [place] [phone] Kendra Garcia M.D. [address] [place] [phone] 11/29/2023 7:45 AM CDT Clinical Communication Virtual Review in [place], [place] 200 [place] [address] 11/30/2023 7:00 AM CDT Appointment Department of Laboratory Medicine and Pathology, [place], [place] [address] [place] [phone] Eric Renner M.D. [address] [place] [phone] 11/30/2023 9:00 AM CDT Office Visit Division of Hematology in [address] [address] Aníbal Reece, FAVIOLA, C.N.P., M.S.N. [address] [place] [phone] 11/30/2023 12:15 PM CDT Infusion Department of Oncology in [place], [place] [address] [place] [phone] Eric Renner M.D. [address] [place] [phone] 12/20/2023 7:45 AM CNC LATHE PROGRAMMER Clinical Communication Virtual Review in [address] [phone] 12/21/2023 7:00 AM CNC LATHE PROGRAMMER Appointment Department of Laboratory Medicine and Pathology, [facility] in [place], [place] [address] [place] [phone] Eric Renner M.D. [address] [place] [phone] 12/21/2023 9:00 AM CNC LATHE PROGRAMMER Office Visit Division of Hematology in [place], [place] [address] [place] [address] Zulma Hickey APRN, C.N.P., M.S.N. [address] [place] [phone] 12/21/2023 10:00 AM CNC LATHE PROGRAMMER Infusion Department of Oncology in [place], [place] [address] [place] [address] Eric Renner M.D. [address] [place] [phone] 01/11/2024 7:00 AM CNC LATHE PROGRAMMER Appointment Department of Laboratory Medicine and Pathology, [facility] in [place], [place] [address] [place] [address] Eric Renner M.D. [address] [place] [phone] 01/11/2024 9:00 AM CNC LATHE PROGRAMMER Office Visit Division of Hematology in [place], [place] [address] [place] [phone] Susu Cameron M.D. [address] [place] [phone] 01/11/2024 10:15 AM CNC LATHE PROGRAMMER Infusion Department of Oncology in [place], [place] [address] [place] [phone] Eric Renner M.D. [address] [place] [phone] 01/14/2024 9:15 AM CNC LATHE PROGRAMMER Diagnostic Department of Otorhinolaryngology in [place], [place] [address] [place] [phone] Eric Renner M.D. [address] [place] [phone] Wendy Moon Au.D., C.CJacquelinCJacquelin-Grecia [address] [place] [phone] 01/14/2024 1:00 PM CNC LATHE PROGRAMMER Diagnostic Department of Otorhinolaryngology in [place], [place] [address] [place] [phone] Eric Renner M.D. [address] [place] [phone] Osiel Middleton Au.D. [address] [place] [phone] 01/14/2024 4:00 PM CNC LATHE PROGRAMMER Clinical Support Department of Otorhinolaryngology in [place], [place] [address] [place] [phone] Eric Renner M.D. [address] [place] [phone] Taj Nicolas, P.TJacquelin [address] [place] [phone] documented as of this encounter Procedures Procedure Name Priority Date/Time Associated Diagnosis Comments PET CT WHOLE BODY RAD - Routine (most inpatients and all outpatients) 11/08/2023 3:56 PM CDT 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) documented in this encounter Results * PET CT Whole Body FDG (11/08/2023 3:56 PM CDT) Anatomical Region Laterality Modality Whole body, Nuclear Medicine PET RST LOS, PET ARZ LOS, Nuclear Medicine PET FLA LOS, Nuclear Medicine N/A Positron Emission Tomogr aphy (PET), Positron Emission Tomography (PET) Impressions 11/08/2023 5:36 PM CDT Positive response to interval chemotherapy. Deauville response score 2. Narrative 11/08/2023 5:36 PM CDT EXAM: ??PET CT WHOLE BODY FDG Serum glucose at time of F-18 FDG injection was 106 mg/dL. Patient followed standard dietary/fasting requirements for this exam. RADIOPHARMACEUTICAL/MEDS: Route: intravenous fludeoxyglucose F 18 injection PENITENTIARY (FDG F-18),9.88 millicurie TECHNIQUE: ??F-18 FDG PET/CT [...] RADIOPHARMACEUTICAL/MEDS: Route: intravenous fludeoxyglucose F 18 injection PENITENTIARY (FDG F-18),9.88 millicurie TECHNIQUE: F-18 FDG PET/CT [...] uptake along the upper esophagus (axial fused [id number]). Mild inflammatory uptake along the right tibia [...] score 2. Eric Monzon M.D. IMG NM IA OCEDURES documented in this encounter Visit Diagnoses Diagnosis 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) documented in this encounter Administered Medications Inactive Administered Medications - up to 3 most recent administrations Medication Order MAR Action Action Date Dose Rate Site fludeoxyglucose F 18 injection PENITENTIARY (FDG F-18) 4.5-16.5 millicurie, intravenous, Once, On Jayleen 11/08/23 at 1445, For 1 dose, Imaging Protocol Orders Given 11/08/2023 2:19 PM CDT 9.88 millicuries documented in this encounter Additional Health Concerns Infection Onset Date Last Indicated Resolved Time Protective Environment 09/19/2023 09/19/2023 documented as of this encounter Care Teams Shellfish Weigher Relationship Specialty Start Date End Date Elsewhere, Pcp PCP - General Internal Medicine 08/21/23 documented as of this encounter
--- OUTSIDE RECORDS SUMMARY | 2023-11-20 19:23 | XMS_ITS | Encounter Summary ---
Author Organization [facility] Address [address] [place] [address] Care Team Providers Care Control Systems Technician Name Role Phone Elsewhere, Pcp Primary Care Provider Unavailabl e Reason for Referral * Outpatient (Routine) - Closed Specialty Diagnoses / Procedures Referred By Julio faustin Referred To Contact Hematology Oncology Marina Rosario APRN, C.N.P., M.S.N. 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 [address] [place] [address] [address] [place] [address] [place] [address] Referral ID Status Reason Start Date Expiration Date V isits Requested Visits Authorized [id number] Authorized 09/18/2023 09/18/2024 1 99 Encounter Details Date Type Department Care Team (Late st Contact Info) Description 09/28/2023 7:30 AM CDT Infusion Department of Oncology in [place], [place] [address] [place] [address] Eric Renner M.D. 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 I have a [facility] place to live 08/15/2023 Sex and Gender Information Value Date Recorded Sex Assigned at Female 08/15/2023 7:51 AM CDT Gender Identity Female 08/15/2023 7:51 AM CDT Sexual Orientation Straight 08/15/2023 7: 51 AM CDT documented as of this encounter Last Filed Vital Signs Vital Sign Reading Time Taken Comments Blood Pressure 120/66 09/28/2023 7:52 AM CDT Pulse 102 09/28/2023 7:52 AM CDT Temperature 36.8 ??C (98.2 ??F) 09/28/2023 7:52 AM CD T Respiratory Rate - - Oxygen Saturation - - Inhaled Oxygen Concentration - - Weight 84.1 kg (185 lb 4.8 oz) 09/28/2023 7:52 A M CDT Height - - Body Mass Index 30.8 09/27/2023 10:43 AM CDT documented in this encounter Plan of Treatment Upcoming Encounters Date Type Department Care Team (Latest Contact Info) Description 11/28/2023 2:15 PM CDT Office Visit Department of Otorhinolaryngology in [place], [place] [address] [place] [phone] Kendra Garcia M.D. [address] [place] [phone] 11/29/2023 7:45 AM CDT Clinical Communication Virtual Review in [place], [place] 200 [place] [address] 11/30/2023 7:00 AM CDT Appointment Department of Laboratory Medicine and Pathology, [facility], in [place], [place] [address] [place] [phone] Eric Renner M.D. [address] [place] [phone] 11/30/2023 9:00 AM CDT Office Visit Division of Hematology in [place], [place] [address] [place] [phone] Aníbal Reece APRN, C.N.P., M.S.N. [address] [place] [phone] 11/30/2023 12:15 PM CDT Infusion Department of Oncology in [place], [place] [address] [place] [phone] Eric Renner M.D. [address] [place] [phone] 12/20/2023 7:45 AM ACTIVITIES VOLUNTEER Clinical Communication Virtual Review in [place], [place] 200 [place] [address] 12/21/2023 7:00 AM ACTIVITIES VOLUNTEER Appointment Department of Laboratory Medicine and Pathology, [facility] in [place], [place] [address] [place] [phone] Eric Renner M.D. [address] [place] [phone] 12/21/2023 9:00 AM ACTIVITIES VOLUNTEER Office Visit Division of Hematology in [place], [place] [address] [place] [phone] Zulma Hickey APRN, C.N.P., M.S.N. [address] [place] [phone] 12/21/2023 10:00 AM ACTIVITIES VOLUNTEER Infusion Department of Oncology in [place], [place] [address] [place] [phone] Eric Renner M.D. [address] [place] [phone] 01/11/2024 7:00 AM ACTIVITIES VOLUNTEER Appointment Department of Laboratory Medicine and Pathology, [facility], in [place], [place] [address] [place] [address] Eric Renner M.D. [address] [place] [phone] 01/11/2024 9:00 AM ACTIVITIES VOLUNTEER Office Visit Division of Hematology in [place], [place] [address] [place] [address] Susu Cameron M.D. [address] [place] [phone] 01/11/2024 10:15 AM ACTIVITIES VOLUNTEER Infusion Department of Oncology in [place], [place] [address] [place] [address] Eric Renner M.D. [address] [place] [phone] 01/14/2024 9:15 AM ACTIVITIES VOLUNTEER Diagnostic Department of Otorhinolaryngology in [place], [place] [address] [place] [address] Eric Renner M.D. [address] [place] [phone] Wendy Moon Au.D., C.C.CJcaquelin-A [address] [place] [phone] 01/14/2024 1:00 PM ACTIVITIES VOLUNTEER Diagnostic Department of Otorhinolaryngology in [place], [place] [address] [place] [phone] Eric Renner M.D. [address] [place] [phone] Osiel Middleton Au.D. [address] [place] [phone] 01/14/2024 4:00 PM [facility] Clinical Support Department of Otorhinolaryngology in [place], [place] [address] [place] [phone] Eric Renner M.D. 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 Given 09/28/2023 8:06 AM CDT 650 mg cycloPHOSphamide 1,500 mg in NaCl 0.9% 350 mL IVPB (Cytoxan) 1,500 mg (rounded from 1,462.5 mg = 750 mg/m2 ? 1.95 m2 Treatment Plan BSA from Measured weight), intravenous, at 700 mL/hr, Administer over 30 Minutes, Once, On Sun09/28/23 at 1315, For 1 dose New Bag 09/28/2023 4:15 PM CDT 1,500 mg 700 mL/hr diphenhydrAMINE injection 50 mg (BenadryL) 50 mg, intravenous, Once, On Sun09/28/23 at 0815, For 1 dose, Administer 30 minutes prior to riTUXimab. Given 09/28/2023 8:14 AM CDT 50 mg DOXOrubicin injection 100 mg (Adriamycin) 100 mg (rounded from 97.5 mg = 50 mg/m2 ? 1.95 m2 Treatment Plan BSA from Measured weight), intravenous, Administer over 10 Minutes, Once, On Sun09/28/23 at 1245, For 1 dose, Administer IV push through a free flowing IV of 0.9% NaCL over approximately 10 minutes via Y-site. Protect from light. Given 09/28/2023 3:57 PM CDT 100 mg famotidine injection 20 mg (Pepcid) 20 mg, intravenous, Once, On Sun09/28/23 at 1045, For 1 dose, IV push over 2 minutes. Administer Famotidine (Pepcid??) if not already given for reaction management., Drug Monitoring Program: Pharmacist to adjust medication dosing based on indication and drug clearance factors. Given 09/28/2023 10:10 AM CDT 20 mg fosaprepitant in NaCl 0.9% IVPB 150 mg (Emend) 150 mg, intravenous, at 500 mL/hr, Administer over 30 Minutes, Once, On Sun09/28/23 at 1245, For 1 dose, Incompatible with solutions containing divalent cations (calcium, magnesium) including lactated Ringer's solution. If oral aprepitant ordered, discontinue IV fosaprepitant., Restriction Criteria (Pharmacy will review and approve if criteria met): Prescribing under the direction of Hematology/Oncology Yoshi Roberson 09/28/2023 3:26 PM CDT 150 mg 500 mL/hr palonosetron injection 0.25 mg (Aloxi) 0.25 mg, intravenous, Once, On Sun09/28/23 at 1245, For 1 dose Given 09/28/2023 3:23 PM CDT 0.25 mg riTUXimab-abbs 700 mg in NaCl 0.9% IVPB (Truxima) 700 mg (rounded from 731.25 mg = 375 mg/m2 ? 1.95 m2 Treatment Plan BSA from Measured weight), intravenous, Once, On Sun09/28/23 at 0845, For 1 dose, Initial infusion: Start rate of 50 mg/hour; if there is no reaction, increase the rate by 50 mg/hour increments every 30 minutes, to a maximum rate of 400 mg/hour.If adverse events occur, slow or stop, then continue at half previous rate. Start rate of 50 mg/hour; if there is no reaction, increase the rate by 50 mg/hour increments every 30 minutes, to a maximum rate of 400 mg/hour., Restriction Criteria (Pharmacy will review and approve if criteria met): Meets rituximab algorithm criteria Rate/Dose Change 09/28/2023 3:19 PM CDT 350 mL/hr Rate/Dose Change 09/28/2023 2:14 PM CDT 250 mL/ hr Rate/Dose Change 09/28/2023 1:57 PM CDT 200 mL/ hr vinCRIStine 2 mg in NaCl 0.9% 60 mL IVPB (Oncovin) 2 mg (set by rule on 09/18/2023 3:34 PM), intravenous, Administer over 10 Minutes, Once, On Sun09/28/23 at 1245, For 1 dose, Not to exceed 2 mg. For Intravenous Use Only -- FATAL if given INTRATHECALLY. If being given via PERIPHERAL IV, medication MUST be administered by gravity. If being given via CENTRAL LINE, medication may be administered by pump or gravity. Protect from light. New Bag 09/28/2023 3:57 PM CDT 2 mg documented in this encounter Additional Health Concerns Infection Onset Date Last Indicated Resolved Time Protective Environment 09/19/2023 09/19/2023 documented as of this encounter Care Teams Control Systems Technician Relationship Specialty Start Date End Date Elsewhere, Pcp PCP - General Internal Medicine 08/21/23 documented as of this encounter
--- OUTSIDE RECORDS SUMMARY | 2023-11-20 19:23 | XMS_ITS | Encounter Summary ---
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 200 [place] [address] [address] [place] [address] [place] [phone] Referral ID Status Reason Start Date Expiration Date V isits Requested Visits Authorized [id number] Authorized 09/18/2023 09/18/2024 1 99 Encounter Details Date Type Department Care Team (Latest Contact Info) Description 10/17/2023 9:30 AM CDT - 10/17/2023 11:59 PM CDT Hospital Encounter Department of Laboratory Medicine and Pathology, [facility], in [place], [place] [address] [place] [address] Eric Renner M.D. 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 I have a [facility] place to live 08/15/2023 Sex and [...] CDT Office Visit Department of Otorhinolaryngology in [place], [place] [address] [place] [phone] Kendra Garcia M.D. [address] [place] [phone] 11/29/2023 7:45 AM CDT Clinical Communication Virtual Review in [place], [place] 200 [place] [address] 11/30/2023 7:00 AM CDT Appointment Department of Laboratory Medicine and Pathology, [facility] in [place], [place] [address] [place] [phone] Eric Renner M.D. [address] [place] [phone] 11/30/2023 9:00 AM CDT Office Visit Division of Hematology in [place], [place] [address] [place] [phone] Aníbal Reece APRN, C.N.P., M.S.N. [address] [place] [phone] 11/30/2023 12:15 PM CDT Infusion Department of Oncology in [place], [place] [address] [place] [phone] Eric Renner M.D. [address] [place] [phone] 12/20/2023 7:45 AM HOME FIRE ALARM INSTALLER Clinical Communication Virtual Review in [place], [place] [address] [place] [address] 12/21/2023 7:00 AM HOME FIRE ALARM INSTALLER Appointment Department of Laboratory Medicine and Pathology, [facility], in [place], [place] [address] [place] [phone] Eric Renner M.D. [address] [place] [phone] 12/21/2023 9:00 AM HOME FIRE ALARM INSTALLER Office Visit Division of Hematology in [place], [place] [address] [place] [phone] Zulma Hickey APRN, C.N.P., M.S.N. [address] [place] [phone] 12/21/2023 10:00 AM HOME FIRE ALARM INSTALLER Infusion Department of Oncology in [place], [place] [address] [place] [phone] Eric Renner M.D. [address] [place] [phone] 01/11/2024 7:00 AM HOME FIRE ALARM INSTALLER Appointment Department of Laboratory Medicine and Pathology, [facility] in [place], [place] [address] [place] [phone] Eric Renner M.D. [address] [place] [phone] 01/11/2024 9:00 AM HOME FIRE ALARM INSTALLER Office Visit Division of Hematology in [place], [place] [address] [place] [phone] Susu Cameron M.D. [address] [place] [phone] 01/11/2024 10:15 AM HOME FIRE ALARM INSTALLER Infusion Department of Oncology in [place], [place] [address] [place] [phone] Eric Renner M.D. [address] [place] [phone] 01/14/2024 9:15 AM HOME FIRE ALARM INSTALLER Diagnostic Department of Otorhinolaryngology in [place], [place] [address] [place] [phone] Eric Renner M.D. [address] [place] [phone] Wendy Moon Au.D., C.C.C.-A [address] [place] [phone] 01/14/2024 1:00 PM HOME FIRE ALARM INSTALLER Diagnostic Department of Otorhinolaryngology in [place], [place] [address] [place] [address] Eric Renner M.D. [address] [place] [phone] Osiel Middleton Au.D. [address] [place] [phone] 01/14/2024 4:00 PM HOME FIRE ALARM INSTALLER Clinical Support Department of Otorhinolaryngology in [place], [place] [address] [place] [phone] Eric Renner M.D. 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) documented in this encounter Results * (ABNORMAL) Comprehensive Metabolic Panel (10/17/2023 10:11 AM CDT) Potassium, S 4.4 3.6 - 5.2 mmol/L 10/17/2023 11:30 AM CDT DTL Sodium, S 142 135 - 145 mmol/L 10/17/2023 11:30 AM CDT DTL Chloride, S 102 98 - 107 mmol/L 10/17/2023 11:30 AM CDT DTL Bicarbonate, S 28 22 - 29 mmol/L 10/17/2023 11:30 AM CDT DTL Anion Gap 12 7 - 15 10/17/2023 11:30 AM CDT DTL BUN (Blood Urea Nitrogen), S 18 6 - 21 mg/dL 10/17/2023 11:30 AM CDT DTL Creatinine 0.81 0.59 - 1.04 mg/dL 10/17/2023 11:30 AM CDT DTL Estimated GFR (eGFR) 86 >=60 mL/min/BS A 10/17/2023 11:30 AM CDT DTL Comment: Estimated GFR calculated using the 2020 CKD_EPI creatinine equation. Calcium, Total, S 9.7 8.6 - 10.0 mg/dL 10/17/2023 11:30 AM CDT DTL Glucose, S 131 70 - 140 mg/dL 10/17/2023 11:30 AM CDT DTL Protein, Total, S 6.8 6.3 - 7.9 g/dL 10/17/2023 11:30 AM CDT DTL Albumin, S 4.2 3.5 - 5.0 g/dL 10/17/2023 11:30 AM CDT DTL Aspartate Aminotransferase (AST), S 20 8 - 43 U/L 10/17/2023 11:30 AM CDT DTL Alkaline Phosphatase, S 111(H) 35 - 104 U/L 10/17/2023 11:30 AM CDT DTL Alanine Aminotransferase (ALT), S 30 7 - 45 U/L 10/17/2023 11:30 AM CDT DTL Bilirubin, Total, S <0.2 0.0 - 1.2 mg/dL 10/17/2023 11:30 AM CDT DTL Blood (Blood, Venous) 10/17/2023 10:11 AM CDT 10/17/2023 11:01 AM CDT Eric Monzon M.D. LAB BLOOD ADD-ON [facility] [address] [place] [address], [facility] [address] [place] [address] * (ABNORMAL) CBC with Differential, Blood (10/17/2023 10:11 AM CDT) Hemoglobin 13.9 11.6 - 15.0 g/dL 10/17/2023 11:23 AM CDT DTL Hematocrit 42.7 35.5 - 44.9 % 10/17/2023 11:23 AM CDT DTL Erythrocytes 4.47 3.92 - 5.13 x10(12)/L 10/17/2023 11:23 AM CDT DTL MCV 95.5 78.2 - 97.9 fL 10/17/2023 11:23 AM CDT DTL RBC Distrib Width 13.1 12.2 - 16.1 % 10/17/2023 11:23 AM CDT DTL Platelet Count 419(H) 157 - 371 x10(9)/L 10/17/2023 11:23 AM CDT DTL Leukocytes 6.8 3.4 - 9.6 x10(9)/L 10/17/2023 11:23 AM CDT DTL Neutrophils 4.52 1.56 - 6.45 x10(9)/L 10/17/2023 11:23 AM CDT DHPM Lymphocytes 1.48 0.95 - 3.07 x10(9)/L 10/17/2023 11:23 AM CDT DTL Monocytes 0.65 0.26 - 0.81 x10(9)/L 10/17/2023 11:23 AM CDT DTL Eosinophils 0.03 0.03 - 0.48 x10(9)/L 10/17/2023 11:23 AM CDT DTL Basophils 0.08 0.01 - 0.08 x10(9)/L 10/17/2023 11:23 AM CDT DTL Blood (Blood, Venous) 10/17/2023 10:11 AM CDT 10/17/2023 10:44 AM CDT Eric Monzon M.D. 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
--- OUTSIDE RECORDS SUMMARY | 2023-11-20 19:23 | XMS_ITS | Encounter Summary ---
Author Organization [facility] Address [address] [place] [address] Care Team Providers Care Electronic Imaging System Operator Name Role Phone Elsewhere, Pcp Primary Care Provider Unavailabl e Reason for Visit * Reason Onset Date Comments External Lab Entry 10/11/2023 Encounter Details Date Type Department Care Team (Latest Contact Info) Description 10/11/2023 Clinical Communication Division of Hematology in [place], [place] [address] [place] [address] Eliza Collins M.D. [address] [place] [address] External Lab Entry Social History Tobacco Use Types Packs/Day Years Used Date Smoking Tobacco: Every Day Cigarettes 1.5 81.8 Started: 02/12/1982 Smokeless Tobacco: Never Alcohol Use Standard Drinks/Week Comments Not Currently 0 (1 standard drink = 0.6 oz pur e alcohol) rarely [facility] Utilities Answer Date Recorded In the past 12 months has [employer], gas, oil, or water [employer] threatened to shut off services in your [...] your living situation today? I have a [facility] place to live 08/15/2023 Sex and Gender Information Value Date Recorded Sex Assigned at Female 08/15/2023 7:51 AM CDT Gender Identity Female 08/15/2023 7:51 AM CDT Sexual Orientation Straight 08/15/2023 7: 51 AM CDT documented as of this encounter Miscellaneous Notes * Addendum Note - Liat Ambriz, R.N. - 10/12/2023 11:49 AM CDTAddended by: LIAT AMBRIZ on: 10/12/2023 11:49 AM Modules accepted: Orders * Telephone Encounter - Liat Ambriz, R.N. - 10/12/2023 10:18 AM CDT SUBJECTIVE CHIEF COMPLAINT / REASON FOR CALL External Lab Entry DLBCL R-CHOP cycle 1 given on 09/28/23 I called and spoke with Ana and she is doing well other than her mouth feeling very tender. She has gingivitis at baseline. She has two mouth sores and has been using the sodium bicarb mouth rinses.I recommended that she brush her teeth with an extra soft toothbrush after every meal and to use the rinses very often. Will also discuss sending prescription for magic mouthwash with Dr. Herman. Neutropenic precautions discussed with patient including good handwashing and oral hygiene, use of high filter mask, avoiding congested public areas and others with upper respiratory symptoms. Patient instructed to be evaluated urgently with fever of 101 F or higher, or a temperature of 100.4 F formore than one hour, or shaking chills regardless of temperature. Test Result Information: 10/11/23 00:00 EXT Hemoglobin 14 (E) EXT Hematocrit 42.4 (E) EXT Platelet Count 261 (E) EXT Leukocytes 1.30 (E) EXT Lymphs Absolute 0.8 (E) EXT Absolute Neutrophil Count 0.10 (E) (E): External lab result Disposition/Recommendation: self-care is appropriate at this time, patient encouraged to call back with questions Information/Education: patient/caller able to teach back Caller agreeable to plan of care: yes * Telephone Encounter - Anne Marie Gaines - 10/12/2023 8:20 AM CDT Outside labs collected on 10/11/2023 have been received. The fax has been scanned into the patient record via [employer], and the CBC results are as noted below. Hemoglobin: 14.0 Hematocrit: 42.4 WBC: 1.30 ANC: 0.10 Platelets: 261 Please note: Are there additional labs reported on the outside report? No documented in this encounter Plan of Treatment Upcoming Encounters Date Type Department Care Team (Latest Contact Info) Description 11/28/2023 2:15 PM CDT Office Visit Department of Otorhinolaryngology in [address] [phone] Kendra Garcia M.D. [address] [place] [phone] 11/29/2023 7:45 AM CDT Clinical Communication Virtual Review in [place], [place] 200 [place] [phone] 11/30/2023 7:00 AM CDT Appointment Department of Laboratory Medicine and Pathology, [facility] in [place], [place] [address] [place] [phone] Eric Renner M.D. [address] [place] [phone] 11/30/2023 9:00 AM CDT Office Visit Division of Hematology in [place], [place] [address] [place] [phone] Aníbal Reece APRN, C.N.P., M.S.N. [address] [place] [phone] 11/30/2023 12:15 PM CDT Infusion Department of Oncology in [place], [place] [address] [place] [phone] Eric Renner M.D. [address] [place] [phone] 12/20/2023 7:45 AM RADIOLOGIC TECHNOLOGIST Clinical Communication Virtual Review in [place], [place] 200 [place] [phone] 12/21/2023 7:00 AM RADIOLOGIC TECHNOLOGIST Appointment Department of Laboratory Medicine and Pathology, [facility], in [place], [place] [address] [place] [phone] Eric Renner M.D. [address] [place] [phone] 12/21/2023 9:00 AM RADIOLOGIC TECHNOLOGIST Office Visit Division of Hematology in [place], [place] [address] [place] [phone] Zulma Hickey APRN, C.N.P., M.S.N. [address] [place] [phone] 12/21/2023 10:00 AM RADIOLOGIC TECHNOLOGIST Infusion Department of Oncology in [place], [place] [address] [place] [phone] Eric Renner M.D. [address] [place] [phone] 01/11/2024 7:00 AM RADIOLOGIC TECHNOLOGIST Appointment Department of Laboratory Medicine and Pathology, [facility] in [place], [place] [address] [place] [phone] Eric Renner M.D. [address] [place] [phone] 01/11/2024 9:00 AM RADIOLOGIC TECHNOLOGIST Office Visit Division of Hematology in [place], [place] [address] [place] [phone] Ssuu Cameron M.D. [address] [place] [phone] 01/11/2024 10:15 AM RADIOLOGIC TECHNOLOGIST Infusion Department of Oncology in [place], [place] [address] [place] [phone] Eric Renner M.D. [address] [place] [phone] 01/14/2024 9:15 AM RADIOLOGIC TECHNOLOGIST Diagnostic Department of Otorhinolaryngology in [place], [place] [address] [place] [phone] Eric Renner M.D. [address] [place] [phone] Wendy Moon Au.D., C.C.C.-A [address] [place] [phone] 01/14/2024 1:00 PM RADIOLOGIC TECHNOLOGIST Diagnostic Department of Otorhinolaryngology in [place], [place] [address] [place] [address] Eric Renner M.D. [address] [place] [phone] Osiel Middleton Au.D. [address] [place] [phone] 01/14/2024 4:00 PM RADIOLOGIC TECHNOLOGIST Clinical Support Department of Otorhinolaryngology in [place], [place] [address] [place] [address] Eric Renner M.D. [address] [place] [phone] Taj Nicolas P.T. [address] [place] [phone] documented as of this encounter Procedures Procedure Name Priority Date/Time Associated Diagnosis Comments HEMATOLOGY/ONCOLOGY - BLOOD, EXTERNAL LAB RESULTS Routine 10/11/2023 documented in this encounter Results * Hematology/Oncology - Blood, External Lab Results (10/11/2023) EXT Hemoglobin 14 OTHER (SPECIFY IN DOBBY LOOM WEAVER) EXT Hematocrit 42.4 OTHER (SPECIFY IN DOBBY LOOM WEAVER) EXT WBC 1.30 OTHER (SPE CIFY IN DOBBY LOOM WEAVER) EXT Absolute Neutrophil Count 0.10 OTHER (SPECIFY IN DOBBY LOOM WEAVER) EXT Lymphs Absolute 0.8 OTHER (SPECIFY IN DOBBY LOOM WEAVER) EXT Platelet Count 261 OTHER (SPECIFY IN DOBBY LOOM WEAVER) Blood 10/11/2023 Historical Provider LAB BLOOD NON ADD-ON OTHER (SPECIFY IN DOBBY LOOM WEAVER) N/A documented in this encounter Visit Diagnoses Not on filedocumented in this encounter Additional Health Concerns Infection Onset Date Last Indicated Resolved Time Protective Environment 09/19/2023 09/19/2023 documented as of this encounter Care Teams Electronic Imaging System Operator Relationship Specialty Start Date End Date Elsewhere, Pcp PCP - General Internal Medicine 08/21/23 documented as of this encounter
--- OUTSIDE RECORDS SUMMARY | 2023-11-20 19:23 | XMS_ITS | Encounter Summary ---
Author Organization [facility] Address [address] [place] [address] Care Team Providers Care Bottling Equipment Sales Representative Name Role Phone Elsewhere, Pcp Primary Care Provider Unavailabl e Encounter Details Date Type Department Care Team (Late st Contact Info) Description 10/17/2023 Orders Only [facility] [address] [place] [phone] Sal Keen, Pharm.D., R.Ph. 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 I have a [facility] place to live 08/15/2023 Sex and [...] CDT Office Visit Department of Otorhinolaryngology in [place], [place] [address] [place] [phone] Kendra Garcia M.D. [address] [place] [phone] 11/29/2023 7:45 AM CDT Clinical Communication Virtual Review in [place], [place] 200 [place] [phone] 11/30/2023 7:00 AM CDT Appointment Department of Laboratory Medicine and Pathology, [facility], in [place], [place] [address] [place] [phone] Eric Renner M.D. [address] [place] [phone] 11/30/2023 9:00 AM CDT Office Visit Division of Hematology in [place], [place] [address] [place] [phone] Aníbal Reece APRN, C.N.P., M.S.N. [address] [place] [phone] 11/30/2023 12:15 PM CDT Infusion Department of Oncology in [place], [place] [address] [place] [phone] Eric Renner M.D. [address] [place] [phone] 12/20/2023 7:45 AM TAIL TRIMMER Clinical Communication Virtual Review in [place], [place] 200 [place] [phone] 12/21/2023 7:00 AM TAIL TRIMMER Appointment Department of Laboratory Medicine and Pathology, [facility] in [place], [place] [address] [place] [phone] Eric Renner M.D. [address] [place] [phone] 12/21/2023 9:00 AM TAIL TRIMMER Office Visit Division of Hematology in [place], [place] [address] [place] [phone] Zulma Hickey APRN, C.N.P., M.S.N. [address] [place] [phone] 12/21/2023 10:00 AM TAIL TRIMMER Infusion Department of Oncology in [place], [place] [address] [place] [phone] Eric Renner M.D. [address] [place] [phone] 01/11/2024 7:00 AM TAIL TRIMMER Appointment Department of Laboratory Medicine and Pathology, [facility], in [place], [place] [address] [place] [address] Eric Renner M.D. [address] [place] [phone] 01/11/2024 9:00 AM TAIL TRIMMER Office Visit Division of Hematology in [place], [place] [address] [place] [phone] Susu Cameron M.D. [address] [place] [phone] 01/11/2024 10:15 AM TAIL TRIMMER Infusion Department of Oncology in [place], [place] [address] [place] [phone] Eric Renner M.D. [address] [place] [phone] 01/14/2024 9:15 AM TAIL TRIMMER Diagnostic Department of Otorhinolaryngology in [place], [place] [address] [place] [address] Eric Renner M.D. [address] [place] [phone] Wendy Moon Au.D., C.C.C.-A [address] [place] [phone] 01/14/2024 1:00 PM TAIL TRIMMER Diagnostic Department of Otorhinolaryngology in [place], [place] [address] [place] [address] Eric Renner M.D. [address] [place] [phone] Osiel Middleton Au.D. [address] [place] [phone] 01/14/2024 4:00 PM TAIL TRIMMER Clinical Support Department of Otorhinolaryngology in [place], [place] [address] [place] [phone] Eric Renner M.D. 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
--- OUTSIDE RECORDS SUMMARY | 2023-11-20 19:23 | XMS_ITS | Encounter Summary ---
Author Organization [facility] Address [address] [place] [address] Care Team Providers Care Script Supervisor Name Role Phone Elsewhere, Pcp Primary Care Provider Unavailabl e Encounter Details Date Type Department Care Team (Late st Contact Info) Description 10/17/2023 Orders Only [facility] [address] [place] [phone] Ahmet Martinez, Pharm.D., R.Ph. [address] [place] [phone] Social History Tobacco Use Types Packs/Day Years Used Date Smoking Tobacco: Every Day Cigarettes 1.5 81.8 Started: 02/12/1982 Smokeless Tobacco: Never Alcohol Use Standard Drinks/Week Comments Not Currently 0 (1 standard drink = 0.6 oz pur e alcohol) rarely [facility] Utilities Answer Date Recorded In the past 12 months has e [employer], gas, oil, or water [employer] threatened to shut off services in your [...] your living situation today? I have a [facility] place to live 08/15/2023 Sex and [...] CDT Office Visit Department of Otorhinolaryngology in [place], [place] [address] [place] [phone] Kendra Garcia M.D. [address] [place] [phone] 11/29/2023 7:45 AM CDT Clinical Communication Virtual Review in [place], [place] 200 [place] [phone] 11/30/2023 7:00 AM CDT Appointment Department of Laboratory Medicine and Pathology, [facility], in [place], [place] [address] [place] [phone] Eric Renner M.D. [address] [place] [phone] 11/30/2023 9:00 AM CDT Office Visit Division of Hematology in [place], [place] [address] [place] [phone] Aníbal Reece APRN C.N.Ad., M.S.N. [address] [place] [phone] 11/30/2023 12:15 PM CDT Infusion Department of Oncology in [place], [place] [address] [place] [phone] Eric Renner M.D. [address] [place] [phone] 12/20/2023 7:45 AM PIGMENT FURNACE TENDER Clinical Communication Virtual Review in [place], [place] 200 [place] [address] 12/21/2023 7:00 AM PIGMENT FURNACE TENDER Appointment Department of Laboratory Medicine and Pathology, [facility] in [place], [place] [address] [place] [phone] Eric Renner M.D. [address] [place] [phone] 12/21/2023 9:00 AM PIGMENT FURNACE TENDER Office Visit Division of Hematology in [place], [place] [address] [place] [phone] Zulma Hickey APRN, C.N.P., M.S.N. [address] [place] [phone] 12/21/2023 10:00 AM PIGMENT FURNACE TENDER Infusion Department of Oncology in [place], [place] [address] [place] [phone] Eric Renner M.D. [address] [place] [phone] 01/11/2024 7:00 AM PIGMENT FURNACE TENDER Appointment Department of Laboratory Medicine and Pathology, [facility], in [place], [place] [address] [place] [address] Eric Renner M.D. [address] [place] [phone] 01/11/2024 9:00 AM PIGMENT FURNACE TENDER Office Visit Division of Hematology in [place], [place] [address] [place] [address] Susu Cameron M.D. [address] [place] [phone] 01/11/2024 10:15 AM PIGMENT FURNACE TENDER Infusion Department of Oncology in [place], [place] [address] [place] [address] Eric Renner M.D. [address] [place] [phone] 01/14/2024 9:15 AM PIGMENT FURNACE TENDER Diagnostic Department of Otorhinolaryngology in [place], [place] [address] [place] [address] Eric Renner M.D. [address] [place] [phone] Wendy Moon Au.D., C.C.C.-A [address] [place] [phone] 01/14/2024 1:00 PM PIGMENT FURNACE TENDER Diagnostic Department of Otorhinolaryngology in [place], [place] [address] [place] [address] Eric Renner M.D. [address] [place] [phone] Osiel Middleton Au.D. [address] [place] [phone] 01/14/2024 4:00 PM PIGMENT FURNACE TENDER Clinical Support Department of Otorhinolaryngology in [place], [place] [address] [place] [phone] Eric Renner M.D. [address] [place] [phone] Taj Nicolas, P.TJacquelin [address] [place] [phone] documented as of this encounter Visit Diagnoses Not on filedocumented in this encounter Additional Health Concerns Infection Onset Date Last Indicated Resolved Time Protective Environment 09/19/2023 09/19/2023 documented as of this encounter Care Teams Script Supervisor Relationship Specialty Start Date End Date Elsewhere, Pcp PCP - General Internal Medicine 08/21/23 documented as of this encounter
--- OUTSIDE RECORDS SUMMARY | 2023-11-20 19:23 | XMS_ITS | Encounter Summary ---
Author Organization [facility] Address [address] [place] [address] Care Team Providers Care Water Mangle Tender Name Role Phone Elsewhere, Pcp Primary Care Provider Unavailabl e Reason for Visit * Outpatient (Routine) - Closed Specialty Diagnoses / Procedures Referred By Contac t Referred To Contact Hematology Oncology Marina Rosario APRN C.N.P., M.S.N. [address] [place] [phone] [facility] Referral ID Status Reason Start Date Expiration Date Visits Re quested Visits Authorized [id number] Closed 09/28/2023 03/29/2025 1 1 Encounter Details Date Type Department Care Team (Late st Contact Info) Description 09/28/2023 9:40 AM CDT Office Visit Department of Oncology in [place], [place] [address] [place] [phone] Marina Rosario APRN C.N.P., M.S.N. [address] [place] [phone] Marjan Bourgeois R.N., O.C.N. 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 - 09/28/2023 9:40 AM CDT Encounter created in error. documented in this encounter Plan of Treatment Upcoming Encounters Date Type Department Care Team (Latest Contact Info) Description 11/28/2023 2:15 PM CDT Office Visit Department of Otorhinolaryngology in [address] [phone] Kendra Garcia M.D. [address] [place] [phone] 11/29/2023 7:45 AM CDT Clinical Communication Virtual Review in [address] [phone] 11/30/2023 7:00 AM CDT Appointment Department of Laboratory Medicine and Pathology, [facility] in [address] [phone] Eric Renner M.D. [address] [place] [phone] 11/30/2023 9:00 AM CDT Office Visit Division of Hematology in [address] [phone] Aníbal Reece, FAVIOLA, C.N.P., M.S.N. [address] [place] [phone] 11/30/2023 12:15 PM CDT Infusion Department of Oncology in [place], [place] [address] [place] [phone] Eric Renner M.D. [address] [place] [phone] 12/20/2023 7:45 AM CAMPUS RECRUITING COORDINATOR Clinical Communication Virtual Review in [address] [phone] 12/21/2023 7:00 AM CAMPUS RECRUITING COORDINATOR Appointment Department of Laboratory Medicine and Pathology, [facility] in [place], [place] [address] [place] [address] Eric Renner M.D. [address] [place] [phone] 12/21/2023 9:00 AM CAMPUS RECRUITING COORDINATOR Office Visit Division of Hematology in [place], [place] [address] [place] [address] Zulma Hickey APRN, C.N.P., M.S.N. [address] [place] [phone] 12/21/2023 10:00 AM CAMPUS RECRUITING COORDINATOR Infusion Department of Oncology in [place], [place] [address] [place] [address] Eric Renner M.D. [address] [place] [phone] 01/11/2024 7:00 AM CAMPUS RECRUITING COORDINATOR Appointment Department of Laboratory Medicine and Pathology, [facility], in [place], [place] [address] [place] [address] Eric Renner M.D. [address] [place] [phone] 01/11/2024 9:00 AM CAMPUS RECRUITING COORDINATOR Office Visit Division of Hematology in [place], [place] [address] [place] [address] Susu Cameron M.D. [address] [place] [phone] 01/11/2024 10:15 AM CAMPUS RECRUITING COORDINATOR Infusion Department of Oncology in [place], [place] [address] [place] [address] Eric Renner M.D. [address] [place] [phone] 01/14/2024 9:15 AM CAMPUS RECRUITING COORDINATOR Diagnostic Department of Otorhinolaryngology in [place], [place] [address] [place] [address] Eric Renner M.D. [address] [place] [phone] Wendy Moon Au.D., C.CJacquelinCJacquelin-A [address] [place] [phone] 01/14/2024 1:00 PM CAMPUS RECRUITING COORDINATOR Diagnostic Department of Otorhinolaryngology in [place], [place] [address] [place] [address] Eric Renner M.D. [address] [place] [phone] Osiel Middleton Au.D. [address] [place] [phone] 01/14/2024 4:00 PM CAMPUS RECRUITING COORDINATOR Clinical Support Department of Otorhinolaryngology in [place], [place] [address] [place] [address] Eric Renner M.D. 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
--- OUTSIDE RECORDS SUMMARY | 2023-11-20 19:23 | XMS_ITS | Encounter Summary ---
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 200 [place] [address] [address] [place] [address] [place] [phone] Referral ID Status Reason Start Date Expiration Date V isits Requested Visits Authorized [id number] Authorized 09/18/2023 09/18/2024 1 99 Encounter Details Date Type Department Care Team (Latest Contact Info) Description 09/27/2023 9:57 AM CDT - 09/27/2023 11:59 PM CDT Hospital Encounter Department of Laboratory Medicine and Pathology, [facility], in [place], [place] [address] [place] [address] Eric Renner M.D. 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 I have a [facility] place to live 08/15/2023 Sex and [...] than 4,000 mg in 24 hours. 08/31/2023 allopurinoL (Zyloprim) 300 mg tabletIndications:Dif fuse Large B Cell Lymphoma Lymph Nodes Of Multiple Sites (HCC) Take 1 tablet (300 mg total) by mouth daily for 10 days. Take on Days 1 through 10 for tumor lysis syndrome prophylaxis 10 tablet 09/27/2023 atorvastatin (Lipitor) 80 mg tablet Take 80 mg by mouth daily. 06/03/2022 blood sugar diagnostic strips (Blood Glucose Test Strips) daily. 09/01/2014 budesonide-formoteroL (Symbicort) 160-4.5 mcg/actuation inhaler Inhale 2 puffs 2 (two) times a day. 10/05/2021 buPROPion (Wellbutrin SR) 100 mg 12 hr tablet Take 1 tablet by mouth daily. gabapentin (NEURONTIN) 600 mg tablet Take 600 mg by mouth 3 (three) times a day. 05/11/2022 hydrOXYzine (Atarax) 50 mg tablet Take 50-100 mg by mouth at bedtime as needed for anxiety (sleep). 08/12/2023 ipratropium-albuteroL (DUONEB) 0.5-2.5 mg/3 mL nebulizer solution INHALE 1 VIAL BY MOUTH VIA NEBULIZER EVERY 6 HOURS NEEDED FOR SHORTNESS OF BREATH 05/09/2022 lancets 30 gauge misc Use once daily as directed. Pharmacy dispense brand based on insurance. 04/25/2013 metFORMIN (Glucophage) 500 mg tablet Take 1,000 [...] 2 08/31/2023 11/29/2023 ondansetron (Zofran) 8 mg tabletIndications:Dif fuse Large B Cell Lymphoma Lymph Nodes Of Multiple Sites (HCC) Take 1 tablet (8 mg total) by mouth every 8 (eight) hours as needed for nausea or vomiting (unrelieved by prochlorperazine). 30 tablet 3 09/27/2023 09/26/2024 prochlorperazine (Compazine) 10 mg tabletIndications:Dif fuse Large B Cell Lymphoma Lymph Nodes Of [...] HOURS NEEDED FOR WHEEZING 1ST CHOICE 06/05/2022 oxyCODONE (Roxicodone) 5 mg immediate release tabletIndications:Pro longed Acute Pain/Traumatic Injury Take 1 tablet (5 mg total) by mouth every 6 (six) hours as needed for moderate pain or score 4-6 of 10 for up to 21 days Indication: Prolonged Acute Pain/Traumatic Injury. 30 tablet 09/11/2023 10/02/2023 predniSONE (Deltasone) 50 mg tabletIndications:Dif fuse Large B Cell Lymphoma Lymph Nodes Of Multiple Sites (HCC) Take 2 tablets (100 mg total) by mouth daily for 5 doses. Days 1 through 5 of each cycle. (Prior to chemotherapy if a chemo day) 10 tablet 09/28/2023 10/03/2023 famotidine (Pepcid) 20 mg tablet Take 20 mg by mouth daily. 07/27/2023 10/16/2023 documented as of this encounter Plan of Treatment Upcoming Encounters Date Type Department Care Team (Latest Contact Info) Description 11/28/2023 2:15 PM CDT Office Visit Department of Otorhinolaryngology in [place], [place] [address] [place] [address] Kendra Garcia M.D. [address] [place] [phone] 11/29/2023 7:45 AM CDT Clinical Communication Virtual Review in [place], [place] 200 [place] [address] 11/30/2023 7:00 AM CDT Appointment Department of Laboratory Medicine and Pathology, [facility] in [place], [place] [address] [place] [phone] Eric Renner M.D. [address] [place] [phone] 11/30/2023 9:00 AM CDT Office Visit Division of Hematology in [place], [place] [address] [place] [address] Aníbal Reece APRN, C.N.P., M.S.N. [address] [place] [phone] 11/30/2023 12:15 PM CDT Infusion Department of Oncology in [place], [place] [address] [place] [address] Eric Renner M.D. [address] [place] [phone] 12/20/2023 7:45 AM NUTRITION INTERNSHIP Clinical Communication Virtual Review in [place], [place] 200 [place] [address] 12/21/2023 7:00 AM NUTRITION INTERNSHIP Appointment Department of Laboratory Medicine and Pathology, [facility] in [place], [place] [address] [place] [phone] Eric Renner M.D. [address] [place] [phone] 12/21/2023 9:00 AM NUTRITION INTERNSHIP Office Visit Division of Hematology in [place], [place] [address] [place] [address] Zulma Hickey APRN, C.N.P., M.S.N. [address] [place] [phone] 12/21/2023 10:00 AM NUTRITION INTERNSHIP Infusion Department of Oncology in [place], [place] [address] [place] [address] Eric Renner M.D. [address] [place] [phone] 01/11/2024 7:00 AM NUTRITION INTERNSHIP Appointment Department of Laboratory Medicine and Pathology, [facility] in [place], [place] [address] [place] [address] Eric Renner M.D. [address] [place] [phone] 01/11/2024 9:00 AM NUTRITION INTERNSHIP Office Visit Division of Hematology in [place], [place] [address] [place] [phone] Susu Cameron M.D. [address] [place] [phone] 01/11/2024 10:15 AM NUTRITION INTERNSHIP Infusion Department of Oncology in [place], [place] [address] [place] [phone] Eric Renner M.D. [address] [place] [phone] 01/14/2024 9:15 AM NUTRITION INTERNSHIP Diagnostic Department of Otorhinolaryngology in [place], [place] [address] [place] [address] Eric Renner M.D. [address] [place] [address] Wendy Moon Au.D., CJacquelinCJacquelinCJacquelin-Grecia [address] [place] [phone] 01/14/2024 1:00 PM NUTRITION INTERNSHIP Diagnostic Department of Otorhinolaryngology in [place], [place] [address] [place] [address] Eric Renner M.D. [address] [place] [phone] Osiel Middleton Au.D. [address] [place] [phone] 01/14/2024 4:00 PM NUTRITION INTERNSHIP Clinical Support Department of Otorhinolaryngology in [place], [place] [address] [place] [address] Eric Renner M.D. 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 LAB BLOOD NON ADD-ON Performing Organization Address City/[facility]/ZIP Co de Phone Number [facility] 200 [place] [address], [facility] 200 [place] [address] * Phosphorus Inorganic (09/27/2023 10:24 AM CDT) Phosphorus (Inorganic), S 3.9 2.5 - 4.5 mg/dL 09/27/2023 11:18 AM CDT DTL Blood (Blood, Venous) 09/27/2023 10:24 AM CDT 09/27/2023 10:58 AM CDT Narrative Authorizing Provider Result Aura Monzon M.D. LAB BLOOD ADD-ON [facility] [address] [place] [address], [facility] 200 [place] [id number] * Uric Acid (09/27/2023 10:24 AM CDT) Uric Acid, S 4.0 2.7 - 6.1 mg/dL 09/27/2023 11:18 AM CDT DTL Blood (Blood, Venous) 09/27/2023 10:24 AM CDT 09/27/2023 10:58 AM CDT Eric Monzon M.D. LAB BLOOD ADD-ON [facility] [address] [place] [address], [facility] [address] [place] [address] * (ABNORMAL) Comprehensive Metabolic Panel (09/27/2023 10:24 AM CDT) Potassium, S 5.3(H) 3.6 - 5.2 mmol/L 09/27/2023 11:18 AM CDT DTL Sodium, S 143 135 - 145 mmol/L 09/27/2023 11:18 AM CDT DTL Chloride, S 105 98 - 107 mmol/L 09/27/2023 11:18 AM CDT DTL Bicarbonate, S 28 22 - 29 mmol/L 09/27/2023 11:18 AM CDT DTL Anion Gap 10 7 - 15 09/27/2023 11:18 AM CDT DTL BUN (Blood Urea Nitrogen), S 15 6 - 21 mg/dL 09/27/2023 11:18 AM CDT DTL Creatinine 0.76 0.59 - 1.04 mg/dL 09/27/2023 11:18 AM CDT DTL Estimated GFR (eGFR) >90 >=60 mL/min/BS A 09/27/2023 11:18 AM CDT DTL Comment: Estimated GFR calculated using the 2020 CKD_EPI creatinine equation. Calcium, Total, S 9.4 8.6 - 10.0 mg/dL 09/27/2023 11:18 AM CDT DTL Glucose, S 101 70 - 140 mg/dL 09/27/2023 11:18 AM CDT DTL Protein, Total, S 6.2(L) 6.3 - 7.9 g/dL 09/27/2023 11:18 AM CDT DTL Albumin, S 3.9 3.5 - 5.0 g/dL 09/27/2023 11:18 AM CDT DTL Aspartate Aminotransferase (AST), S 15 8 - 43 U/L 09/27/2023 11:18 AM CDT DTL Alkaline Phosphatase, S 137(H) 35 - 104 U/L 09/27/2023 11:18 AM CDT DTL Alanine Aminotransferase (ALT), S 14 7 - 45 U/L 09/27/2023 11:18 AM CDT DTL Bilirubin, Total, S <0.2 0.0 - 1.2 mg/dL 09/27/2023 11:18 AM CDT DTL Blood (Blood, Venous) 09/27/2023 10:24 AM CDT 09/27/2023 10:58 AM CDT Eric Monzon M.D. LAB BLOOD ADD-ON [address] [address], [facility] 200 [place] [address] * CBC with Differential, Blood (09/27/2023 10:24 AM CDT) Hemoglobin 13.3 11.6 - 15.0 g/dL 09/27/2023 11:18 AM CDT DTL Hematocrit 40.3 35.5 - 44.9 % 09/27/2023 11:18 AM CDT DTL Erythrocytes 4.13 3.92 - 5.13 x10(12)/L 09/27/2023 11:18 AM CDT DTL MCV 97.6 78.2 - 97.9 fL 09/27/2023 11:18 AM CDT DTL RBC Distrib Width 13.2 12.2 - 16.1 % 09/27/2023 11:18 AM CDT DTL Platelet Count 247 157 - 371 x10(9)/L 09/27/2023 11:18 AM CDT DTL Leukocytes 6.2 3.4 - 9.6 x10(9)/L 09/27/2023 11:18 AM CDT DTL Neutrophils 3.73 1.56 - 6.45 x10(9)/L 09/27/2023 11:54 AM CDT DHPM Comment:Rechecked Lymphocytes 1.77 0.95 - 3.07 x10(9)/L 09/27/2023 11:54 AM CDT DTL Monocytes 0.50 0.26 - 0.81 x10(9)/L 09/27/2023 11:54 AM CDT DTL Eosinophils 0.15 0.03 - 0.48 x10(9)/L 09/27/2023 11:54 AM CDT DTL Basophils 0.03 0.01 - 0.08 x10(9)/L 09/27/2023 11:54 AM CDT DTL Blood (Blood, Venous) 09/27/2023 10:24 AM CDT 09/27/2023 10:48 AM CDT Eric Monzon M.D. LAB BLOOD ADD-ON [facility] 200 [place] [address], [facility] DTL [facility] [address] [place] [address] 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
--- OUTSIDE RECORDS SUMMARY | 2023-11-20 19:23 | XMS_ITS | Encounter Summary ---
Author Organization [facility] Address [address] [place] [address] Care Team Providers Care Dairy Supplies Sales Representative Name Role Phone Elsewhere, Pcp Primary Care Provider Unavailabl e Reason for Visit * Reason Onset Date Comments Rst hem lymph chemo 09/28/2023 Encounter Details Date Type Department Care Team (Latest Contact Info) Description 09/28/2023 Clinical Communication Division of Hematology in [place], [place] [address] [place] [address] Eric Renner M.D. [address] [place] [address] Rst hem lymph chemo Social History Tobacco Use Types Packs/Day Years Used Date Smoking Tobacco: Every Day Cigarettes 1.5 81.8 Started: 02/12/1982 Smokeless Tobacco: Never Alcohol Use Standard Drinks/Week Comments Not Currently 0 (1 standard drink = 0.6 oz pur e alcohol) rarely [facility] Utilities Answer Date Recorded In the past 12 months has e [employer], gas, oil, or water [employer] threatened to shut off services in your [...] your living situation today? I have a [facility] place to live 08/15/2023 Sex and [...] CDT Office Visit Department of Otorhinolaryngology in [place], [place] [address] [place] [phone] Kendra Garcia M.D. [address] [place] [phone] 11/29/2023 7:45 AM CDT Clinical Communication Virtual Review in [place], [place] 200 [place] [address] 11/30/2023 7:00 AM CDT Appointment Department of Laboratory Medicine and Pathology, [facility], in [place], [place] [address] [place] [phone] Eric Renner M.D. [address] [place] [phone] 11/30/2023 9:00 AM CDT Office Visit Division of Hematology in [place], [place] [address] [place] [phone] Aníbal Reece APRN, C.N.P., M.S.N. [address] [place] [phone] 11/30/2023 12:15 PM CDT Infusion Department of Oncology in [place], [place] [address] [place] [phone] Eric Renner M.D. [address] [place] [phone] 12/20/2023 7:45 AM BUSINESS ACCOUNT EXECUTIVE Clinical Communication Virtual Review in [place], [place] 200 [place] [address] 12/21/2023 7:00 AM BUSINESS ACCOUNT EXECUTIVE Appointment Department of Laboratory Medicine and Pathology, [facility], in [place], [place] [address] [place] [phone] Eric Renner M.D. [address] [place] [phone] 12/21/2023 9:00 AM BUSINESS ACCOUNT EXECUTIVE Office Visit Division of Hematology in [place], [place] [address] [place] [phone] Zulma Hickey APRN, C.NJacquelinP., M.S.N. [address] [place] [phone] 12/21/2023 10:00 AM BUSINESS ACCOUNT EXECUTIVE Infusion Department of Oncology in [place], [place] [address] [place] [phone] Eric Renner M.D. [address] [place] [phone] 01/11/2024 7:00 AM BUSINESS ACCOUNT EXECUTIVE Appointment Department of Laboratory Medicine and Pathology, [facility], in [place], [place] [address] [place] [address] Eric Renner M.D. [address] [place] [phone] 01/11/2024 9:00 AM BUSINESS ACCOUNT EXECUTIVE Office Visit Division of Hematology in [place], [place] [address] [place] [address] Susu Cameron M.D. [address] [place] [phone] 01/11/2024 10:15 AM BUSINESS ACCOUNT EXECUTIVE Infusion Department of Oncology in [place], [place] [address] [place] [address] Eric Renner M.D. [address] [place] [phone] 01/14/2024 9:15 AM BUSINESS ACCOUNT EXECUTIVE Diagnostic Department of Otorhinolaryngology in [place], [place] [address] [place] [address] Eric Renner M.D. [address] [place] [phone] Wendy Moon Au.D., C.C.C.-A [address] [place] [phone] 01/14/2024 1:00 PM BUSINESS ACCOUNT EXECUTIVE Diagnostic Department of Otorhinolaryngology in [place], [place] [address] [place] [address] Eric Renner M.D. [address] [place] [phone] Osiel Middleton Au.D. [address] [place] [phone] 01/14/2024 4:00 PM BUSINESS ACCOUNT EXECUTIVE Clinical Support Department of Otorhinolaryngology in [place], [place] [address] [place] [phone] Eric Renner M.D. [address] [place] [phone] Taj Nicolas, P.TJacquelin [address] [place] [phone] documented as of this encounter Visit Diagnoses Not on filedocumented in this encounter Additional Health Concerns Infection Onset Date Last Indicated Resolved Time Protective Environment 09/19/2023 09/19/2023 documented as of this encounter Care Teams Dairy Supplies Sales Representative Relationship Specialty Start Date End Date Elsewhere, Pcp PCP - General Internal Medicine 08/21/23 documented as of this encounter
--- OUTSIDE RECORDS SUMMARY | 2023-11-20 19:23 | XMS_ITS | Encounter Summary ---
Author Organization [facility] Address [address] [place] [address] Care Team Providers Care Fretted Instruments Inspector Name Role Phone Elsewhere, Pcp Primary Care Provider Unavailabl e Reason for Visit * Reason Onset Date Comments FORM/total and permanent disability loan program 09/28/2023 Encounter Details Date Type Department Care Team (Latest Contact Info) Description 09/28/2023 Clinical Communication Division of Hematology in [place], [place] [address] [place] [address] Eric Renner M.D. [address] [place] [address] FORM/total and permanent disability loan program Social History Tobacco Use Types Packs/Day Years Used Date Smoking Tobacco: Every Day Cigarettes 1.5 81.8 Started: 02/12/1982 Smokeless Tobacco: Never Alcohol Use Standard Drinks/Week Comments Not Currently 0 (1 standard drink = 0.6 oz pur e alcohol) rarely [facility] Utilities Answer Date Recorded In the past 12 months has th e [employer], gas, oil, or water [employer] threatened to shut off services in your [...] your living situation today? I have a [facility] place to live 08/15/2023 Sex and [...] CDT Office Visit Department of Otorhinolaryngology in [place], [place] [address] [place] [phone] Kendra Garcia M.D. [address] [place] [phone] 11/29/2023 7:45 AM CDT Clinical Communication Virtual Review in [place], [place] 200 [place] [address] 11/30/2023 7:00 AM CDT Appointment Department of Laboratory Medicine and Pathology, [facility], in [place], [place] [address] [place] [phone] Eric Renner M.D. [address] [place] [phone] 11/30/2023 9:00 AM CDT Office Visit Division of Hematology in [place], [place] [address] [place] [phone] Aníbal Reece APRN, Yassine.N.P., M.S.N. [address] [place] [phone] 11/30/2023 12:15 PM CDT Infusion Department of Oncology in [place], [place] [address] [place] [phone] Eric Renner M.D. [address] [place] [phone] 12/20/2023 7:45 AM PEDIATRIC RN Clinical Communication Virtual Review in [place], [place] 200 [place] [address] 12/21/2023 7:00 AM PEDIATRIC RN Appointment Department of Laboratory Medicine and Pathology, [facility] in [place], [place] [address] [place] [phone] Eric Renner M.D. [address] [place] [phone] 12/21/2023 9:00 AM PEDIATRIC RN Office Visit Division of Hematology in [place], [place] [address] [place] [phone] Zulma Hickey APRN, Yassine.N.P., M.S.N. [address] [place] [phone] 12/21/2023 10:00 AM PEDIATRIC RN Infusion Department of Oncology in [place], [place] [address] [place] [phone] Eric Renner M.D. [address] [place] [phone] 01/11/2024 7:00 AM PEDIATRIC RN Appointment Department of Laboratory Medicine and Pathology, [facility], in [place], [place] [address] [place] [address] Eric Renner M.D. [address] [place] [phone] 01/11/2024 9:00 AM PEDIATRIC RN Office Visit Division of Hematology in [place], [place] [address] [place] [address] Susu Cameron M.D. [address] [place] [phone] 01/11/2024 10:15 AM PEDIATRIC RN Infusion Department of Oncology in [place], [place] [address] [place] [address] Eric Renner M.D. [address] [place] [phone] 01/14/2024 9:15 AM PEDIATRIC RN Diagnostic Department of Otorhinolaryngology in [place], [place] [address] [place] [address] Eric Renner M.D. [address] [place] [phone] Wendy Moon Au.D., C.C.C.-A [address] [place] [phone] 01/14/2024 1:00 PM PEDIATRIC RN Diagnostic Department of Otorhinolaryngology in [place], [place] [address] [place] [address] Eric Renner M.D. [address] [place] [phone] Osiel Middleton Au.D. [address] [place] [phone] 01/14/2024 4:00 PM PEDIATRIC RN Clinical Support Department of Otorhinolaryngology in [place], [place] [address] [place] [phone] Eric Renner M.D. [address] [place] [phone] Taj Nicolas, P.TJacquelin [address] [place] [phone] documented as of this encounter Visit Diagnoses Not on filedocumented in this encounter Additional Health Concerns Infection Onset Date Last Indicated Resolved Time Protective Environment 09/19/2023 09/19/2023 documented as of this encounter Care Teams Fretted Instruments Inspector Relationship Specialty Start Date End Date Elsewhere, Pcp PCP - General Internal Medicine 08/21/23 documented as of this encounter
--- OUTSIDE RECORDS SUMMARY | 2023-11-20 19:23 | XMS_ITS | Encounter Summary ---
Author Organization [facility] Address [address] [place] [address] Care Team Providers Care Fancy Wire Drawer Name Role Phone Elsewhere, Pcp Primary Care Provider Unavailabl e Encounter Details Date Type Department Care Team (Latest Contact Info) Description 10/16/2023 8:00 AM CDT Clinical Communication Virtual Review in [place], [place] [address] [place] [address] Social History Tobacco Use Types Packs/Day Years Used Date Smoking Tobacco: Every Day Cigarettes 1.5 81.8 Started: 02/12/1982 Smokeless Tobacco: Never Alcohol Use Standard Drinks/Week Comments Not Currently 0 (1 standard drink = 0.6 oz pur e alcohol) rarely [facility] Utilities Answer Date Recorded In the [...] Answer Date Recorded Employment status Unemployed/not in [employer] paid workforce but seeking employment 08/15/2023 Housing Stability Answer Date Recorded What is your living situation today? I have a [facility] place to live 08/15/2023 Sex and [...] CDT Office Visit Department of Otorhinolaryngology in [place], [place] [address] [place] [phone] Kendra Garcia M.D. [address] [place] [phone] 11/29/2023 7:45 AM CDT Clinical Communication Virtual Review in [place], [place] [address] [place] [address] 11/30/2023 7:00 AM CDT Appointment Department of Laboratory Medicine and Pathology, [facility], in [place], [place] [address] [place] [phone] Eric Renner M.D. [address] [place] [phone] 11/30/2023 9:00 AM CDT Office Visit Division of Hematology in [place], [place] [address] [place] [phone] Aníbal Reece APRN, C.NMaggi., M.S.N. [address] [place] [phone] 11/30/2023 12:15 PM CDT Infusion Department of Oncology in [place], [place] [address] [place] [phone] Eric Renner M.D. [address] [place] [phone] 12/20/2023 7:45 AM SHAREPOINT ENGINEER Clinical Communication Virtual Review in [place], [place] 200 [place] [address] 12/21/2023 7:00 AM SHAREPOINT ENGINEER Appointment Department of Laboratory Medicine and Pathology, [facility] in [place], [place] [address] [place] [phone] Eric Renner M.D. [address] [place] [phone] 12/21/2023 9:00 AM SHAREPOINT ENGINEER Office Visit Division of Hematology in [place], [place] [address] [place] [phone] Zulma Hickey APRN, C.NWalter, M.S.N. [address] [place] [phone] 12/21/2023 10:00 AM SHAREPOINT ENGINEER Infusion Department of Oncology in [place], [place] [address] [place] [phone] Eric Renner M.D. [address] [place] [phone] 01/11/2024 7:00 AM SHAREPOINT ENGINEER Appointment Department of Laboratory Medicine and Pathology, [facility], in [place], [place] [address] [place] [phone] Eric Renner M.D. [address] [place] [address] 01/11/2024 9:00 AM SHAREPOINT ENGINEER Office Visit Division of Hematology in [place], [place] [address] [place] [phone] Susu Cameron M.D. [address] [place] [phone] 01/11/2024 10:15 AM SHAREPOINT ENGINEER Infusion Department of Oncology in [place], [place] [address] [place] [address] Eric Renner M.D. [address] [place] [phone] 01/14/2024 9:15 AM SHAREPOINT ENGINEER Diagnostic Department of Otorhinolaryngology in [place], [place] [address] [place] [address] Eric Renner M.D. [address] [place] [phone] Wendy Moon Au.D., C.C.CJacquelin-A [address] [place] [phone] 01/14/2024 1:00 PM SHAREPOINT ENGINEER Diagnostic Department of Otorhinolaryngology in [place], [place] [address] [place] [address] Eric Renner M.D. [address] [place] [phone] Osiel Middleton Au.D. [address] [place] [phone] 01/14/2024 4:00 PM SHAREPOINT ENGINEER Clinical Support Department of Otorhinolaryngology in [place], [place] [address] [place] [phone] Eric Renner M.D. [address] [place] [phone] Taj Nicolas, P.T. 200 [place] [phone] documented as of this encounter Visit Diagnoses Not on filedocumented in this encounter Additional Health Concerns Infection Onset Date Last Indicated Resolved Time Protective Environment 09/19/2023 09/19/2023 documented as of this encounter Care Teams Fancy Wire Drawer Relationship Specialty Start Date End Date Elsewhere, Pcp PCP - General Internal Medicine 08/21/23 documented as of this encounter
--- OUTSIDE RECORDS SUMMARY | 2023-11-20 19:23 | XMS_ITS | Encounter Summary ---
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 200 [place] [address] [facility] Referral ID Status Reason Start Date Expiration Date Visits Re quested Visits Authorized [id number] Closed 11/08/2023 11/07/2024 1 1 * Outpatient (Routine) - Authorized Specialty Diagnoses / Procedures Referred By Julio faustin Referred To Contact Diagnoses Vertigo Benign Paroxysmal Positional Bilateral Procedures Vestibular rehabilitation therapy PT/OT Eric Renner M.D. 200 [place] [address] [facility] Referral ID Status Reason Start Date Expiration Date V isits Requested Visits Authorized [id number] Authorized 10/17/2023 10/16/2024 1 1 * Outpatient (Routine) - Authorized Specialty Diagnoses / Procedures Referred By Julio faustin Referred To Contact Diagnoses Vertigo Benign Paroxysmal Positional Bilateral Procedures Audio-Vestibular Balance evaluation Eric Renner M.D. 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 [address] [place] [phone] [facility] [place] [address] [place] [phone] Referral ID Status Reason Start Date Expiration Date V isits Requested Visits Authorized [id number] Authorized 09/18/2023 09/18/2024 1 99 Encounter Details Date Type Department Care Team (Late st Contact Info) Description 10/17/2023 11:30 AM CDT Office Visit Division of Hematology in [place], [place] [address] [place] [phone] Eric Renner M.D. 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) Social History Tobacco Use Types Packs/Day Years Used Date Smoking Tobacco: Every Day Cigarettes 1.5 81.8 Started: 02/12/1982 Smokeless Tobacco: Never Alcohol Use Standard Drinks/Week Comments Not Currently 0 (1 standard drink = 0.6 oz pur e alcohol) rarely [facility] Utilities Answer Date Recorded In the past 12 months has e electric, gas, oil, or water company [...] Sign Reading Time Taken Comments Blood Pressure 124/81 10/17/2023 11:32 AM CDT Pulse 121 10/17/2023 11:32 AM CDT Temperature 36.3 ??C (97.3 ??F) 10/17/2023 11:32 AM C DT Respiratory Rate - - Oxygen Saturation 96% 10/17/2023 11:32 AM CDT Inhaled Oxygen Concentration - - Weight 80 kg (176 lb 7.7 oz) 10/17/2023 11:32 AM CDT Height 165.7 cm (5' 5.24) 10/17/2023 11:32 AM C DT Body Mass Index 29.16 10/17/2023 11:32 AM CDT documented in this encounter Progress Notes * Eric Renner M.D. - 10/17/2023 11:30 AM CDT SUBJECTIVE REFERRING PROVIDER Jose Zhang M.D. REASON FOR VISIT DLBCL, advanced stage IPI24: 33% event risk in 24mo [employer]ER-IPI: 3 (intermediate risk) R-IPI: 2 (good prognosis) [...] the left hip. Images not reviewed by [facility] Radiology. August 23, 2023: CT-guided needle [...] HISTORY Returns to clinic prior to cycle 2 of frontline therapy with R-CHOP for DLBCL. Last visit on 2023, prior to starting therapy. No major interval events. She did experience mucositis of the 1st cycle. A prescription for magic mouthwash was sent to her local pharmacy but this was not available locally. She was evaluated locally in an urgent care facility and given a prescription for antibiotics with interval improvement. On my interview today, she reports to be feeling well and ready for another treatment. Denies any significant peripheral neuropathy at this time. MEDICATIONS Reviewed REVIEW OF SYSTEMS All systems reviewed and negative except for HPI. OBJECTIVE Vitals: 10/17/23 1132 BP: 124/81 Patient Position: Sitting Pulse: (!) 121 Temp: 36.3 ??C Height: 165.7 cm Weight: 80 kg SpO2: 96% TempSrc: Tympanic Body surface area is 1.92 meters squared. PHYSICAL EXAM BP 124/81 (BP Location: Right arm, Patient Position: Sitting, Cuff Size: Regular) Pulse (!) 121 Temp 36.3 ??C (Tympanic) Ht 165.7 cm Wt 80 kg SpO2 96% BMI 29.16 kg/m?? Wt Readings from Last 3 Encounters: 10/17/23 80 kg 09/28/23 84.1 kg 09/27/23 84 kg General: Accompanied by . No acute distress. ECOG performance status is 0. Eyes: Examined and normal. ENT: No oral lesions or thrush. Lymph: No palpable lymphadenopathy on the neck, supraclavicular, infraclavicular, axillary, epitrochlear regions. Heart: Regular rate and rhythm, S1 and [...] DIAGNOSTICS I have reviewed the recent relevant labs and diagnostics. LABORATORY Recent Results (from the past 72 hour(s)) CBC with Differential, Blood Collection Time: 10/17/23 10:11 AM Result Value Hemoglobin 13.9 Hematocrit 42.7 Erythrocytes 4.47 MCV 95.5 RBC Distrib Width 13.1 Platelet Count 419 (H) Leukocytes 6.8 Neutrophils 4.52 Lymphocytes 1.48 Monocytes 0.65 Eosinophils 0.03 Basophils 0.08 Comprehensive Metabolic Panel Collection Time: 10/17/23 10:11 AM Result Value Potassium, S 4.4 Sodium, S 142 Chloride, S 102 Bicarbonate, S 28 Anion Gap 12 BUN (Blood Urea Nitrogen), S 18 Creatinine 0.81 Estimated GFR (eGFR) 86 Calcium, Total, S 9.7 Glucose, S 131 Protein, Total, S 6.8 Albumin, S 4.2 Aspartate Aminotransferase (AST), S 20 Alkaline Phosphatase, S 111 (H) Alanine Aminotransferase (ALT), S 30 Bilirubin, Total, S <0.2 RADIOLOGY Reviewed reports, per HPI. PATHOLOGY Reviewed report, per HPI. ASSESSMENT / PLAN #1 DLBCL, advanced stage Returns to clinic prior to cycle 2 of R-CHOP for DLBCL. Tolerated cycle 1 without major issues. Alltests are appropriate to proceed with cycle 2 without any delays or dose reductions. Plan is to repeat PET-CT before next cycle. #2 Mucositis She developed mucositis after cycle 1 of R-CHOP. Prescription for magic mouthwash was given but shewas unable to access it from local pharmacy. Prescription is ready for her at the [facility] pharmacy today. She may use it as needed. Follow-up: Return to clinic before next cycle Education We discussed the diagnosis and treatment plan in detail. The patient expressed understanding of thecontent. No apparent learning barriers were identified; learning preferences include listening. No orders of the defined types were placed in this encounter. Signed by: Bandar Monzon M.D. 10/17/2023 documented in this encounter Plan of Treatment Upcoming Encounters Date Type Department Care Team (Latest Contact Info) Description 11/28/2023 2:15 PM CDT Office Visit Department of Otorhinolaryngology in [place], [place] [address] [place] [phone] Kendra Garcia M.D. [address] [place] [phone] 11/29/2023 7:45 AM CDT Clinical Communication Virtual Review in [place], [place] 200 [place] [phone] 11/30/2023 7:00 AM CDT Appointment Department of Laboratory Medicine and Pathology, [facility], in [place], [place] [address] [place] [phone] Eric Renner M.D. [address] [place] [phone] 11/30/2023 9:00 AM CDT Office Visit Division of Hematology in [place], [place] [address] [place] [phone] Aníbal Reece APRN, C.N.P., M.S.N. [address] [place] [phone] 11/30/2023 12:15 PM CDT Infusion Department of Oncology in [place], [place] [address] [place] [phone] Eric Renner M.D. [address] [place] [phone] 12/20/2023 7:45 AM RN NEUROSURGICAL Clinical Communication Virtual Review in [place], [place] 200 [place] [phone] 12/21/2023 7:00 AM RN NEUROSURGICAL Appointment Department of Laboratory Medicine and Pathology, [facility] in [place], [place] [address] [place] [phone] Eric Renner M.D. [address] [place] [phone] 12/21/2023 9:00 AM RN NEUROSURGICAL Office Visit Division of Hematology in [place], [place] [address] [place] [phone] Zulma Hickey APRN, C.N.P., M.S.N. [address] [place] [phone] 12/21/2023 10:00 AM RN NEUROSURGICAL Infusion Department of Oncology in [place], [place] [address] [place] [phone] Eric Renner M.D. [address] [place] [phone] 01/11/2024 7:00 AM RN NEUROSURGICAL Appointment Department of Laboratory Medicine and Pathology, [facility], in [place], [place] [address] [place] [address] Eric Renner M.D. [address] [place] [phone] 01/11/2024 9:00 AM RN NEUROSURGICAL Office Visit Division of Hematology in [place], [place] [address] [place] [phone] Susu Cameron M.D. [address] [place] [phone] 01/11/2024 10:15 AM RN NEUROSURGICAL Infusion Department of Oncology in [place], [place] [address] [place] [phone] Eric Renner M.D. [address] [place] [phone] 01/14/2024 9:15 AM RN NEUROSURGICAL Diagnostic Department of Otorhinolaryngology in [place], [place] [address] [place] [phone] Eric Renner M.D. [address] [place] [phone] Wendy Moon Au.D., C.C.C.-A [address] [place] [phone] 01/14/2024 1:00 PM RN NEUROSURGICAL Diagnostic Department of Otorhinolaryngology in [place], [place] [address] [place] [phone] Eric Renner M.D. [address] [place] [phone] Osiel Middleton Au.D. [address] [place] [phone] 01/14/2024 4:00 PM RN NEUROSURGICAL Clinical Support Department of Otorhinolaryngology in [place], [place] [address] [place] [phone] Eric Renner M.D. [address] [place] [phone] Taj Nicolas P.T. [address] [place] [phone] documented as of this encounter Results * PET CT Whole [...] RADIOPHARMACEUTICAL/MEDS: Route: intravenous fludeoxyglucose F 18 injection [facility] (FDG F-18),9.88 millicurie TECHNIQUE: ??F-18 FDG PET/CT [...] RADIOPHARMACEUTICAL/MEDS: Route: intravenous fludeoxyglucose F 18 injection [facility] (FDG F-18),9.88 millicurie TECHNIQUE: F-18 FDG PET/CT [...] uptake along the upper esophagus (axial fused [id number]). Mild inflammatory uptake along the right tibia [...] Deauville response score 2. Eric Monzon M.D. 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
--- OUTSIDE RECORDS SUMMARY | 2023-11-20 19:23 | XMS_ITS | Encounter Summary ---
Author Organization [facility] Address [address] [place] [address] Care Team Providers Care Bryologist Name Role Phone Elsewhere, Pcp Primary Care Provider Unavailabl e Reason for Visit * Reason Comments Med Refill Encounter Details Date Type Department Care Team (Late st Contact Info) Description 10/17/2023 Refill Division of Hematology in [place], [place] [address] [place] [phone] Eric Renner M.D. [address] [place] [address] Med Refill Social History Tobacco Use Types Packs/Day Years Used Date Smoking Tobacco: Every Day Cigarettes 1.5 81.8 Started: 02/12/1982 Smokeless Tobacco: Never Alcohol Use Standard Drinks/Week Comments Not Currently 0 (1 standard drink = 0.6 oz pur e alcohol) rarely [facility] Utilities Answer Date Recorded In the past 12 months has [employer], gas, oil, or water [employer] threatened to shut off services in your [...] living situation today? I have a [facility] place to live 08/15/2023 Sex [...] CDT Office Visit Department of Otorhinolaryngology in [place], [place] [address] [place] [phone] Kendra Garcia M.D. [address] [place] [phone] 11/29/2023 7:45 AM CDT Clinical Communication Virtual Review in [place], [place] [address] [place] [address] 11/30/2023 7:00 AM CDT Appointment Department of Laboratory Medicine and Pathology, [facility], in [place], [place] [address] [place] [phone] Eric Renner M.D. [address] [place] [phone] 11/30/2023 9:00 AM CDT Office Visit Division of Hematology in [place], [place] [address] [place] [phone] Aníbal Reece APRN, C.N.P., M.S.N. [address] [place] [phone] 11/30/2023 12:15 PM CDT Infusion Department of Oncology in [place], [place] [address] [place] [phone] Eric Renner M.D. [address] [place] [phone] 12/20/2023 7:45 AM DIRECT CARE COUNSELOR Clinical Communication Virtual Review in [place], [place] 200 [place] [address] 12/21/2023 7:00 AM DIRECT CARE COUNSELOR Appointment Department of Laboratory Medicine and Pathology, [facility] in [place], [place] [address] [place] [phone] Eric Renner M.D. [address] [place] [phone] 12/21/2023 9:00 AM DIRECT CARE COUNSELOR Office Visit Division of Hematology in [place], [place] [address] [place] [phone] Zulma Hickey APRN, Yassine.N.P., M.S.N. [address] [place] [phone] 12/21/2023 10:00 AM DIRECT CARE COUNSELOR Infusion Department of Oncology in [place], [place] [address] [place] [phone] Eric Renner M.D. [address] [place] [phone] 01/11/2024 7:00 AM DIRECT CARE COUNSELOR Appointment Department of Laboratory Medicine and Pathology, [facility], in [place], [place] [address] [place] [address] Eric Renner M.D. [address] [place] [phone] 01/11/2024 9:00 AM DIRECT CARE COUNSELOR Office Visit Division of Hematology in [place], [place] [address] [place] [address] Susu Cameron M.D. [address] [place] [phone] 01/11/2024 10:15 AM DIRECT CARE COUNSELOR Infusion Department of Oncology in [place], [place] [address] [place] [address] Eric Renner M.D. [address] [place] [phone] 01/14/2024 9:15 AM DIRECT CARE COUNSELOR Diagnostic Department of Otorhinolaryngology in [place], [place] [address] [place] [address] Eric Renner M.D. [address] [place] [phone] Wendy Moon Au.D., C.C.C.-A [address] [place] [phone] 01/14/2024 1:00 PM DIRECT CARE COUNSELOR Diagnostic Department of Otorhinolaryngology in [place], [place] [address] [place] [address] Eric Renner M.D. [address] [place] [phone] Osiel Middleton Au.D. [address] [place] [phone] 01/14/2024 4:00 PM DIRECT CARE COUNSELOR Clinical Support Department of Otorhinolaryngology in [place], [place] [address] [place] [phone] Eric Renner M.D. 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
--- OUTSIDE RECORDS SUMMARY | 2023-11-20 19:23 | XMS_ITS | Encounter Summary ---
Author Organization [facility] Address [address] [place] [address] Care Team Providers Care Wood Casket Maker Name Role Phone Elsewhere, Pcp Primary Care Provider Unavailabl e Encounter Details Date Type Department Care Team (Late st Contact Info) Description 09/27/2023 Clinical Communication Division of Hematology in [place], [place] [address] [place] [address] Yennifer Montoya, Pharm.D., R.Ph., [facility] [address] [place] [address] Social History Tobacco Use Types Packs/Day Years Used Date Smoking Tobacco: Every Day Cigarettes 1.5 81.8 Started: 02/12/1982 Smokeless Tobacco: Never Alcohol Use Standard Drinks/Week Comments Not Currently 0 (1 standard drink = 0.6 oz pur e alcohol) rarely C Utilities Answer Date Recorded In the past 12 months has e [employer], gas, oil, or water [employer] threatened to shut off services in your [...] your living situation today? I have a [facility] place to live 08/15/2023 Sex and [...] CDT Office Visit Department of Otorhinolaryngology in [place], [place] [address] [place] [phone] Kendra Garcia M.D. [address] [place] [phone] 11/29/2023 7:45 AM CDT Clinical Communication Virtual Review in [place], [place] [address] [place] [address] 11/30/2023 7:00 AM CDT Appointment Department of Laboratory Medicine and Pathology, [facility], in [place], [place] [address] [place] [phone] Eric Renner M.D. [address] [place] [phone] 11/30/2023 9:00 AM CDT Office Visit Division of Hematology in [place], [place] [address] [place] [phone] Aníbal Reece APRN, C.N.P., M.S.N. [address] [place] [phone] 11/30/2023 12:15 PM CDT Infusion Department of Oncology in [place], [place] [address] [place] [phone] Eric Renner M.D. [address] [place] [phone] 12/20/2023 7:45 AM DIRECTOR IMAGING Clinical Communication Virtual Review in [place], [place] 200 [place] [address] 12/21/2023 7:00 AM DIRECTOR IMAGING Appointment Department of Laboratory Medicine and Pathology, [facility] in [place], [place] [address] [place] [phone] Eric Renner M.D. [address] [place] [phone] 12/21/2023 9:00 AM DIRECTOR IMAGING Office Visit Division of Hematology in [place], [place] [address] [place] [phone] Zulma Hickey APRN, C.N.Ad., M.S.N. [address] [place] [phone] 12/21/2023 10:00 AM DIRECTOR IMAGING Infusion Department of Oncology in [place], [place] [address] [place] [phone] Eric Renner M.D. [address] [place] [phone] 01/11/2024 7:00 AM DIRECTOR IMAGING Appointment Department of Laboratory Medicine and Pathology, [facility], in [place], [place] [address] [place] [address] Eric Renner M.D. [address] [place] [phone] 01/11/2024 9:00 AM DIRECTOR IMAGING Office Visit Division of Hematology in [place], [place] [address] [place] [address] Susu Cameron M.D. [address] [place] [phone] 01/11/2024 10:15 AM DIRECTOR IMAGING Infusion Department of Oncology in [place], [place] [address] [place] [address] Eric Renner M.D. [address] [place] [phone] 01/14/2024 9:15 AM DIRECTOR IMAGING Diagnostic Department of Otorhinolaryngology in [place], [place] [address] [place] [address] Eric Renner M.D. [address] [place] [phone] Wendy Moon Au.D., C.C.CJacquelin-A [address] [place] [phone] 01/14/2024 1:00 PM DIRECTOR IMAGING Diagnostic Department of Otorhinolaryngology in [place], [place] [address] [place] [address] Eric Renner M.D. [address] [place] [phone] Osiel Middleton Au.D. [address] [place] [phone] 01/14/2024 4:00 PM DIRECTOR IMAGING Clinical Support Department of Otorhinolaryngology in [place], [place] [address] [place] [phone] Eric Renner M.D. [address] [place] [phone] Taj Nicolas, PJacquelinTJacquelin [address] [place] [phone] documented as of this encounter Visit Diagnoses Not on filedocumented in this encounter Additional Health Concerns Infection Onset Date Last Indicated Resolved Time Protective Environment 09/19/2023 09/19/2023 documented as of this encounter Care Teams Wood Casket Maker Relationship Specialty Start Date End Date Elsewhere, Pcp PCP - General Internal Medicine 08/21/23 documented as of this encounter
--- NOTE | 2023-11-20 19:24 | ED_ITS ---
<Statement entered by Shanna Molina MD - 11/20/23 21:11> I didn't participate in this note. No billing. HPI - General Adult General Chief complaint: Fever Stated complaint: Fever, short of breath Time Seen by Provider: 11/20/23 18:43 Source: patient and family Mode of arrival: ambulatory Limitations: no limitations History of Present Illness HPI narrative: 53-year-old female presenting today with fevers, body aches, chills that started today. Patient has been having body aches for about a week but the fever started today. She is currently undergoing chemotherapy for lymphoma, has had 3/6 treatments so far. She has a cough that is generally nonproductive. She does not feel short of breath. No new diarrhea or constipation. Appetite is decreased today. She took Tylenol this morning. Related Data Home Medications ?Medication ?Instructions ?Recorded ?Confirmed oxycodone 5 mg capsule 5 mg PO BID PRN 09/18/23 10/24/23 Previous Rx's ?Medication ?Instructions ?Recorded lorazepam 0.5 mg tablet 0.5 mg PO BID PRN restlessness 02/13/23 #10 tabs albuterol sulfate 90 mcg/actuation 2 puff inhalation Q4H PRN 03/15/23 aerosol inhaler (Ventolin HFA) shortness of breath or wheezing #8.5 grams gabapentin 600 mg tablet 600 mg PO TID #270 tabs 03/15/23 ipratropium 0.5 mg-albuterol 3 mg 3 ml inhalation TID #90 mL 03/15/23 (2.5 mg base)/3 mL nebulization soln metformin 500 mg tablet 1,000 mg (2 x 500 mg) PO BID #360 03/15/23 tabs sumatriptan succinate 100 mg tablet 100 mg PO .As Needed PRN migraine 03/15/23 headache #9 tabs bupropion HCl 100 mg tablet,12 hr 100 mg PO QAM #30 tabs 04/30/23 sustained-release atorvastatin 80 mg tablet 80 mg PO QDAY #90 tabs 07/25/23 budesonide-formoterol HFA 160 2 puff inhalation BID #10.2 grams 07/31/23 mcg-4.5 mcg/actuation aerosol inhaler (Symbicort) oxycodone 5 mg tablet 2.5 - 5 mg (0.5 - 1 x 5 mg) PO Q6H 08/27/23 PRN pain #30 tabs nystatin 100,000 unit/mL oral 500,000 unit (5 mL) PO QID #120 mL 10/04/23 suspension tirzepatide 10 mg/0.5 mL 10 mg (0.5 mL) subcut QWEEK #2 mL 10/16/23 subcutaneous pen injector (Mounjaro) lidocaine HCl 2 % mucosal solution 1 applic mucous membrane BID PRN 10/24/23 (Lidocaine Viscous) pain #100 mL nicotine 21 mg/24 hr daily 1 patch transdermal Q24H #28 ea 10/24/23 transdermal patch tirzepatide 12.5 mg/0.5 mL 12.5 mg (0.5 mL) subcut QWEEK #2 mL 10/24/23 subcutaneous pen injector (Mounjaro) tirzepatide 15 mg/0.5 mL 15 mg (0.5 mL) subcut QWEEK #2 mL 10/24/23 subcutaneous pen injector (Mounjaro) varenicline 0.5 mg (11)-1 mg (42) See Rx Instructions PO PER PKG DIR 10/24/23 tablets in a dose pack (Chantix #53 ea Starting Month Box) varenicline 1 mg tablet (Chantix 1 mg PO BID #56 tabs 10/24/23 Continuing Month Box) ibuprofen 800 mg tablet 800 mg PO TID PRN pain #60 tabs 11/14/23 oxycodone 5 mg tablet 5 - 10 mg (1 - 2 x 5 mg) PO Q4-6H 11/14/23 PRN pain #60 tabs cyclobenzaprine 10 mg tablet 10 mg PO TID PRN muscle spasm #30 11/19/23 tabs Allergies Allergy/AdvReac Type Severity Reaction Status Date / Time No Known Allergies Allergy Unknown Verified 10/24/23 09:29 Review of Systems Status of ROS: Reports: 10 or more systems reviewed and unremarkable except as noted in History and below [facility] Medical History Stomatitis ?K12.1 - Other forms of stomatitis (ICD-10) At risk for inadequate pain control ?Z91.89 - Other specified personal risk factors, not elsewhere classified (ICD-10) Diffuse large B cell lymphoma ?C83.30 - Diffuse large B-cell lymphoma, unspecified site (ICD-10) Bone lesion ?M89.9 - Disorder of bone, unspecified (ICD-10) SOB (shortness of breath) ?R06.02 - Shortness of breath (ICD-10) Cough ?R05.9 - Cough, unspecified (ICD-10) Rib fracture ?S22.39XA - Fracture of one rib, unspecified side, initial encounter for closed fracture (ICD-10) CAD (coronary artery disease) ?I25.10 - Atherosclerotic heart disease of [place] coronary artery without angina pectoris (ICD-10) Tubular adenoma ?D36.9 - Benign neoplasm, unspecified site (ICD-10) Eyelid dermatitis, allergic/contact ?H01.119 - Allergic dermatitis of unspecified eye, unspecified eyelid (ICD- 10) Elevated TSH ?R79.89 - Other specified abnormal findings of blood chemistry (ICD-10) Hoarseness of voice ?R49.0 - Dysphonia (ICD-10) Screening mammogram for breast cancer ?Z12.31 - Encounter for screening mammogram for malignant neoplasm of breast (ICD-10) Smoking greater than 40 pack years ?F17.210 - Nicotine dependence, cigarettes, uncomplicated (ICD-10) Antipsychotic-induced akathisia ?G25.71 - Drug induced akathisia (ICD-10) ?T43.505A - Adverse effect of unspecified antipsychotics and neuroleptics, initial encounter (ICD-10) Radicular pain ?M54.10 - Radiculopathy, site unspecified (ICD-10) Chronic constipation ?K59.09 - Other constipation (ICD-10) DOS (diffuse esophageal spasm) ?K22.4 - Dyskinesia of esophagus (ICD-10) Diverticulitis ?K57.92 - Diverticulitis of intestine, part unspecified, without perforation or abscess without bleeding (ICD-10) Encounter for smoking cessation counseling ?Z71.6 - Tobacco abuse counseling (ICD-10) Neuropathy ?G62.9 - Polyneuropathy, unspecified (ICD-10) Migraine ?G43.909 - Migraine, unspecified, not intractable, without status migrainosus (ICD-10) Depression ?F32.A - Depression, unspecified (ICD-10) Hand pain ?M79.643 - Pain in unspecified hand (ICD-10) Gestational diabetes ?O24.419 - Gestational diabetes mellitus in , unspecified control (ICD-10) Diabetes mellitus type 2, controlled ?E11.9 - Type 2 diabetes mellitus without complications (ICD-10) Cigarette smoker ?F17.210 - Nicotine dependence, cigarettes, uncomplicated (ICD-10) COPD (chronic obstructive pulmonary disease) ?J44.9 - Chronic obstructive pulmonary disease, unspecified (ICD-10) Hyperlipemia ?E78.5 - Hyperlipidemia, unspecified (ICD-10) Surgical History Hx of tonsillectomy ?Z90.89 - Acquired absence of other organs (ICD-10) History of repair of anterior cruciate ligament of right knee ?Z98.890 - Other specified postprocedural states (ICD-10) S/P NINA-BSO (total abdominal hysterectomy and bilateral salpingo-oophorectomy) ?Z90.710 - Acquired absence of both cervix and uterus (ICD-10) ?Z90.722 - Acquired absence of ovaries, bilateral (ICD-10) ?Z90.79 - Acquired absence of other genital organ(s) (ICD-10) History of endometriosis ?Z87.42 - Personal history of other diseases of the female genital tract (ICD-10) Hx laparoscopic cholecystectomy ?Z90.49 - Acquired absence of other specified parts of digestive tract (ICD- 10) History of carpal tunnel surgery of right wrist ?Z98.890 - Other specified postprocedural states (ICD-10) Hx of hernia repair ?Z98.890 - Other specified postprocedural states (ICD-10) ?Z87.19 - Personal history of other diseases of the digestive system (ICD-10) Hx of section ?Z98.891 - History of uterine scar from previous surgery (ICD-10) History of ear surgery ?Z98.890 - Other specified postprocedural states (ICD-10) Hx of colonoscopy ?Z98.890 - Other specified postprocedural states (ICD-10) Hx of esophagogastroduodenoscopy ?Z98.890 - Other specified postprocedural states (ICD-10) H/O dilation and curettage ?Z98.890 - Other specified postprocedural states (ICD-10) Family History Father Pancreatic cancer Long QT syndrome Brother Bipolar 1 disorder Schizophrenia Mother Coronary artery disease Social History Smoking Status: Current every day smoker Non-prescribed substance use: denies use Exam Narrative: Exam Narrative: Well-nourished well-developed patient in no acute distress. Alert and oriented. Answers questions appropriately. Mood and affect are appropriate. Thoughts are goal oriented and rational. No tangential or magical thinking noted. Patient speaks in full sentences without needing to catch her breath. HEENT: Normocephalic atraumatic. Pupils are equally round reactive to light. Extraocular muscles are intact. Conjunctivae are moist without any icterus noted. Moist mucous membranes. Posterior pharynx is normal. Cardiovascular: Heart is regular rate and rhythm S1 and S2 are present without any murmurs. Lungs: Clear to auscultation bilaterally no wheezes rhonchi or rales are appreciated. Patient takes deep breaths without any discomfort. Abdomen: Soft and nontender nondistended with normal bowel sounds. Extremities: Bilateral lower extremities are without edema. Skin: Well perfused. Const: Vital Signs, click to edit/add: Vital Signs - 24 hr 11/20/23 18:34 11/20/23 18:45 11/20/23 19:02 Temperature 103.2 F H 103.2 F H Pulse Rate [Left P ulse Oximeter] 134 H Respiratory Rate 20 Blood Pressure [Ri ght Upper Arm] 123/79 Pulse Oximetry 92 90 Oxygen Delivery Me thod Room Air 11/20/23 19:24 11/20/23 19:51 Temperature 103.2 F H 100.0 F H Pulse Rate [Left P ulse Oximeter] Respiratory Rate Blood Pressure [Ri ght Upper Arm] Pulse Oximetry Oxygen Delivery Me thod Course Course ED Course: Patient received a 1000 mg of Tylenol. She did not receive IV fluids as there is a national IV fluids shortage at this time patient does not appear to be septic. Chest x-ray, read by me, does not show any acute pathology. CBC shows a white cell count of 0.7, hemoglobin 11, platelet count 124. 20% neutrophils. Absolute neutrophil count of 140. Despite Tylenol temperature remain elevated at 100, pulse remained elevated at 112. Blood culture was drawn. Started the patient on IV Zosyn for neutropenic fever. Chemistries were unremarkable. Lactate 1.6. Normal LFTs. CRP elevated at 13.4. Normal procalcitonin. UA was turbid, otherwise unremarkable. Triple swab negative. Vital Signs Vital signs: Initial Vital Signs Temperature 103.2 F H 11/20/23 18:34 Temperature Source Oral 11/20/23 18:34 Pulse Rate 134 H 11/20/23 18:34 Respiratory Rate 20 11/20/23 18:34 Blood Pressure 123/79 11/20/23 18:34 Blood Pressure Mean 93 11/20/23 18:34 Blood Pressure Position Sitting 11/20/23 18:34 Pulse Oximetry 92 11/20/23 18:34 Oxygen Delivery Method Room Air 11/20/23 18:34 Vital Signs Temperature 103.2 F H 11/20/23 18:34 Pulse Rate 134 H 11/20/23 18:34 Respiratory Rate 20 11/20/23 18:34 Blood Pressure 123/79 11/20/23 18:34 Pulse Oximetry 92 11/20/23 18:34 Oxygen Delivery Method Room Air 11/20/23 18:34 Temperature 100.0 F H 11/20/23 19:51 Pulse Rate 134 H 11/20/23 18:34 Respiratory Rate 20 11/20/23 18:34 Blood Pressure 123/79 11/20/23 18:34 Pulse Oximetry 90 11/20/23 18:45 Oxygen Delivery Method Room Air 11/20/23 18:34 Medications Administered Medications: Discontinued Medications Generic Name Dose Route Start Last Admin Trade Name Freq PRN Reason Stop Dose Admin Acetaminophen 1,000 mg 11/20/23 18:45 11/20/23 19:02 Acetaminophen 500 Mg Tablet PO 11/20/23 18:46 1,000 mg ONCE ONE Administration Piperacillin Sod/Tazobactam 100 mls @ 200 mls/hr 11/20/23 19:52 11/20/23 20:26 Sod 3.375 gm/ Sodium Chloride IVPB 11/20/23 19:53 200 mls/hr ONCE ONE Administration Medical Decision Making MDM Narrative Medical decision making narrative: 53-year-old female with neutropenic fever, source unclear. Patient will be admitted for further management. Lab Data Lab results reviewed: Yes I reviewed the patient's lab results Labs: Lab Results 11/20/23 Range/Units 19:10 WBC 0.70 L* (4.50-11.00) K/uL RBC 3.41 L (4.00-5.20) m/uL Hgb 11.0 L (12.0-16.0) gm/dL Hct 33.0 (33.0-51.0) % MCV 97 (80-100) fL MCH 32 (26-34) pg MCHC 33 (32-36) gm/dL RDW Coeff of Randall 14.5 (11.5-15.5) % Plt Count 124 L (140-440) K/uL Neut % (Auto) 20.0 L (42.0-72.0) % Lymph % (Auto) 50.0 H (20-44) % Tama % (Auto) 25.7 H (0.0-11.0) % Eos % (Auto) 1.4 (0.0-7.0) % Baso % (Auto) 2.9 (0.0-3.0) % Neut # (Auto) 0.10 L (1.7-7.0) K/uL Lymph # (Auto) 0.40 L (0.90-2.90) K/uL Tama # (Auto) 0.20 (0.00-0.90) K/UL Eos # (Auto) 0.00 (0.00-0.50) K/uL Baso # (Auto) 0.00 (0.00-0.30) K/uL Abs Immat Gran (auto) 0.00 (0.00-0.30) K/uL Imm/Tot Granulo (auto) 0.0 % Diff Slide Review Acceptable Review (Acceptable) Sodium 136 (135-149) mmol/L Potassium 3.6 (3.6-5.1) mmol/L Chloride 104 (96-114) mmol/L Carbon Dioxide 28 (20-32) mmol/L Anion Gap 4 L (7-15) mEq/L BUN 11 (7-30) mg/dL Creatinine 0.6 (0.5-1.5) mg/dL Estimated Creat Clear 92.56 Estimated GFR 107 ml/min Glucose 165 H (60-115) mg/dL Lactate 1.6 (0.5-1.9) mmol/L Calcium 8.9 (8.4-10.6) mg/dL Total Bilirubin 0.3 (0.1-1.5) mg/dL Direct Bilirubin 0.1 (0.0-0.5) mg/dL AST 16 (12-35) U/L ALT 17 (4-35) U/L Alkaline Phosphatase 82 (40-150) U/L C-Reactive Protein 13.4 H (0.5-1.0) mg/dL Total Protein 6.4 (6.0-8.3) g/dL Albumin 3.9 (3.3-5.0) g/dL Procalcitonin 0.07 (<0.50) ng/mL Urine Color Yellow (Yellow) Urine Appearance Turbid A (Clear) Urine pH 7.5 (5.0-8.5) Ur Specific Mobile 1.020 (1.000-1.030) Urine Protein Negative (Negative) Urine Glucose (UA) Negative (Negative) Urine Ketones Trace A (Negative) Urine Blood Negative (Negative) Urine Nitrite Negative (Negative) Urine Bilirubin Negative (Negative) Urine Urobilinogen 0.2 (0.2-1.0) Ur Leukocyte Esterase Negative (Negative) Urine RBC 0-2 (0-2) Urine WBC 0-2 (0-5) Ur Squamous Epith Cells Few (None-Few) Urine Bacteria None (None) SARS-CoV-2 (PCR) Negative SARS-CoV-2 (Negative) Influenza Type A (PCR) Negative PCR FLU A (Negative) Influenza Type B (PCR) Negative PCR FLU B (Negative) RSV (PCR) Negative PCR RSV (Negative) Imaging Data Chest x-ray: Attestation: I have reviewed the pertinent imaging results. Radiologist's impression: Chest radiographs, 2 views. COMPARISON: None. FINDINGS: Cardiovascular/Mediastinum: Normal heart size. Unremarkable. Lungs: No focal consolidation. Linear band like opacification of the lungs bilaterally, likely subsegmental atelectasis and/or scarring. Airways: Trachea remains midline. Pleura: No pleural effusions or pneumothorax. Bones: No acute osseous abnormalities. Upper abdomen: Unremarkable. IMPRESSION: No acute cardiopulmonary process. Discharge Plan Discharge Clinical Impression: Neutropenic fever Patient Disposition: Admitted As Observation Condition: Stable Prescriptions: No Action lorazepam 0.5 mg tablet 0.5 mg PO BID PRN (Reason: restlessness ) Qty: 10 0RF sumatriptan succinate 100 mg tablet 100 mg PO .As Needed PRN (Reason: migraine headache) Qty: 9 11RF Rx Instructions: ONE TAB AT ONSET OF HEADACHE, MAY REPEAT ONCE IN 2 HRS, MAX 200 MG/24 HRS metformin 500 mg tablet 1,000 mg PO BID Qty: 360 3RF gabapentin 600 mg tablet 600 mg PO TID Qty: 270 3RF albuterol sulfate [Ventolin HFA] 90 mcg/actuation HFA aerosol inhaler 2 puff inhalation Q4H PRN (Reason: shortness of breath or wheezing) Qty: 8.5 11RF ipratropium-albuterol 0.5 mg-3 mg(2.5 mg base)/3 mL solution for nebulization 3 ml inhalation TID Qty: 90 11RF oxycodone 5 mg capsule 5 mg PO BID PRN Rx Instructions: 2-3 Mounjaro 12.5 mg/0.5 mL pen injector 12.5 mg subcut QWEEK Qty: 2 0RF Mounjaro 15 mg/0.5 mL pen injector 15 mg subcut QWEEK Qty: 2 0RF nicotine 21 mg/24 hr patch 24 hour 1 patch transdermal Q24H Qty: 28 1RF varenicline [Chantix Starting Month Box] 0.5 mg (11)- 1 mg (42) tablets,dose pack See Rx Instructions PO PER PKG DIR Qty: 53 0RF Rx Instructions: PO PER PKG DIR brand name varenicline [Chantix Continuing Month Box] 1 mg tablet 1 mg PO BID Qty: 56 0RF lidocaine HCl [Lidocaine Viscous] 2 % solution 1 applic mucous membrane BID PRN (Reason: pain) Qty: 100 1RF bupropion HCl 100 mg tablet sustained-release 12 hr 100 mg PO QAM Qty: 30 0RF atorvastatin 80 mg tablet 80 mg PO QDAY Qty: 90 1RF budesonide-formoterol [Symbicort] 160-4.5 mcg/actuation HFA aerosol inhaler 2 puff inhalation BID Qty: 10.2 2RF oxycodone 5 mg tablet 2.5 - 5 mg PO Q6H PRN (Reason: pain) Qty: 30 0RF nystatin 100,000 unit/mL suspension 500,000 unit PO QID Qty: 120 0RF Rx Instructions: swish and swallow 4 times a day. Mounjaro 10 mg/0.5 mL pen injector 10 mg subcut QWEEK Qty: 2 0RF oxycodone 5 mg tablet 5 - 10 mg PO Q4-6H PRN (Reason: pain) Qty: 60 0RF ibuprofen 800 mg tablet 800 mg PO TID PRN (Reason: pain) Qty: 60 0RF cyclobenzaprine 10 mg tablet 10 mg PO TID PRN (Reason: muscle spasm) Qty: 30 0RF Follow Up/Referrals: Porfirio Orosco PA-C [Primary Care Provider] -
--- OUTSIDE RECORDS SUMMARY | 2023-11-20 19:24 | XMS_ITS | Encounter Summary ---
Author Organization [facility] Address [address] [place] [address] Care Team Providers Care School Boat Driver Name Role Phone Elsewhere, Pcp Primary Care Provider Unavailabl e Reason for Visit * Reason Onset Date Comments MARY/FORMS 09/14/2023 Encounter Details Date Type Department Care Team (Late st Contact Info) Description 09/14/2023 Clinical Communication Division of Hematology in [place], [place] [address] [place] [address] Eric Renner M.D. [address] [place] [address] MARY/FORMS Social History Tobacco Use Types Packs/Day Years Used Date Smoking Tobacco: Every Day Cigarettes 1.5 81.8 Started: 02/12/1982 Smokeless Tobacco: Never Alcohol Use Standard Drinks/Week Comments Not Currently 0 (1 standard drink = 0.6 oz pur e alcohol) rarely [facility] Utilities Answer Date Recorded In the past 12 months has e [employer], gas, oil, or water [employer] threatened to shut off services in your [...] living situation today? I have a [facility] place to live 08/15/2023 Sex and [...] CDT Office Visit Department of Otorhinolaryngology in [place], [place] [address] [place] [phone] Kendra Garcia M.D. [address] [place] [phone] 11/29/2023 7:45 AM CDT Clinical Communication Virtual Review in [place], [place] 200 [place] [address] 11/30/2023 7:00 AM CDT Appointment Department of Laboratory Medicine and Pathology, [facility], in [place], [place] [address] [place] [phone] Eric Renner M.D. [address] [place] [phone] 11/30/2023 9:00 AM CDT Office Visit Division of Hematology in [place], [place] [address] [place] [phone] Aníbal Reece APRN, C.N.P., M.S.N. [address] [place] [phone] 11/30/2023 12:15 PM CDT Infusion Department of Oncology in [place], [place] [address] [place] [phone] Eric Renner M.D. [address] [place] [phone] 12/20/2023 7:45 AM FORGING DIE SINKER Clinical Communication Virtual Review in [place], [place] 200 [place] [address] 12/21/2023 7:00 AM FORGING DIE SINKER Appointment Department of Laboratory Medicine and Pathology, [facility], in [place], [place] [address] [place] [phone] Eric Renner M.D. [address] [place] [phone] 12/21/2023 9:00 AM FORGING DIE SINKER Office Visit Division of Hematology in [place], [place] [address] [place] [phone] Zulma Hickey APRN, C.NJacquelinP., M.S.N. [address] [place] [phone] 12/21/2023 10:00 AM FORGING DIE SINKER Infusion Department of Oncology in [place], [place] [address] [place] [phone] Eric Renner M.D. [address] [place] [phone] 01/11/2024 7:00 AM FORGING DIE SINKER Appointment Department of Laboratory Medicine and Pathology, [facility], in [place], [place] [address] [place] [address] Eric Renner M.D. [address] [place] [phone] 01/11/2024 9:00 AM FORGING DIE SINKER Office Visit Division of Hematology in [place], [place] [address] [place] [address] Susu Cameron M.D. [address] [place] [phone] 01/11/2024 10:15 AM FORGING DIE SINKER Infusion Department of Oncology in [place], [place] [address] [place] [address] Eric Renner M.D. [address] [place] [phone] 01/14/2024 9:15 AM FORGING DIE SINKER Diagnostic Department of Otorhinolaryngology in [place], [place] [address] [place] [address] Eric Renner M.D. [address] [place] [phone] Wendy Moon Au.D., C.C.C.-A [address] [place] [phone] 01/14/2024 1:00 PM FORGING DIE SINKER Diagnostic Department of Otorhinolaryngology in [place], [place] [address] [place] [address] Eric Renner M.D. [address] [place] [phone] Osiel Middleton Au.D. [address] [place] [phone] 01/14/2024 4:00 PM FORGING DIE SINKER Clinical Support Department of Otorhinolaryngology in [place], [place] [address] [place] [phone] Eric Renner M.D. [address] [place] [phone] Taj Nicolas, P.TJacquelin [address] [place] [phone] documented as of this encounter Visit Diagnoses Not on filedocumented in this encounter Additional Health Concerns Infection Onset Date Last Indicated Resolved Time Protective Environment 09/19/2023 09/19/2023 documented as of this encounter Care Teams School Boat Driver Relationship Specialty Start Date End Date Elsewhere, Pcp PCP - General Internal Medicine 08/21/23 documented as of this encounter
--- OUTSIDE RECORDS SUMMARY | 2023-11-20 19:24 | XMS_ITS | Encounter Summary ---
Author Organization [facility] Address [address] [place] [address] Care Team Providers Care Turning Sander Operator Name Role Phone Elsewhere, Pcp Primary Care Provider Unavailabl e Encounter Details Date Type Department Care Team (Late st Contact Info) Description 09/26/2023 10:00 AM CDT Admin Visit Department of Oncology in [place], [place] [address] [place] [address] Yennifer Montoya, Pharm.D., R.Ph., [facility] [address] [place] [address] Social History Tobacco Use Types Packs/Day Years Used Date Smoking Tobacco: Every Day Cigarettes 1.5 81.8 Started: 02/12/1982 Smokeless Tobacco: Never Alcohol Use Standard Drinks/Week Comments Not Currently 0 (1 standard drink = 0.6 oz pur e alcohol) rarely [facility] Utilities Answer Date Recorded In the past 12 months has e [employer], gas, oil, or water [email or web address] threatened to shut off services in your [...] living situation today? I have a [facility] place to live 08/15/2023 Sex and Gender Information Value Date Recorded Sex Assigned at Female 08/15/2023 7:51 AM CDT Gender Identity Female 08/15/2023 7:51 AM CDT Sexual Orientation Straight 08/15/2023 7: 51 AM CDT documented as of this encounter Plan of Treatment Upcoming Encounters Date Type Department Care Team (Latest Contact Info) Description 11/28/2023 2:15 PM CDT Office Visit Department of Otorhinolaryngology in [place], [place] [address] [place] [phone] Kendra Garcia M.D. [address] [place] [phone] 11/29/2023 7:45 AM CDT Clinical Communication Virtual Review in [place], [place] 200 [place] [address] 11/30/2023 7:00 AM CDT Appointment Department of Laboratory Medicine and Pathology, [facility], in [place], [place] [address] [place] [phone] Eric Renner M.D. [address] [place] [phone] 11/30/2023 9:00 AM CDT Office Visit Division of Hematology in [place], [place] [address] [place] [phone] Aníbal Reece APRN, C.N.P., M.S.N. [address] [place] [phone] 11/30/2023 12:15 PM CDT Infusion Department of Oncology in [place], [place] [address] [place] [phone] Eric Renner M.D. [address] [place] [phone] 12/20/2023 7:45 AM CAPONIZER Clinical Communication Virtual Review in [place], [place] 200 [place] [address] 12/21/2023 7:00 AM CAPONIZER Appointment Department of Laboratory Medicine and Pathology, [facility] in [place], [place] [address] [place] [phone] Eric Renner M.D. [address] [place] [phone] 12/21/2023 9:00 AM CAPONIZER Office Visit Division of Hematology in [place], [place] [address] [place] [phone] Zulma Hickey APRN, C.N.P., M.S.N. [address] [place] [phone] 12/21/2023 10:00 AM CAPONIZER Infusion Department of Oncology in [place], [place] [address] [place] [phone] Eric Renner M.D. [address] [place] [phone] 01/11/2024 7:00 AM CAPONIZER Appointment Department of Laboratory Medicine and Pathology, [facility], in [place], [place] [address] [place] [address] Eric Renner M.D. [address] [place] [phone] 01/11/2024 9:00 AM CAPONIZER Office Visit Division of Hematology in [place], [place] [address] [place] [address] Susu Cameron M.D. [address] [place] [phone] 01/11/2024 10:15 AM CAPONIZER Infusion Department of Oncology in [place], [place] [address] [place] [address] Eric Renner M.D. [address] [place] [phone] 01/14/2024 9:15 AM CAPONIZER Diagnostic Department of Otorhinolaryngology in [place], [place] [address] [place] [address] Eric Renner M.D. [address] [place] [phone] Wendy Moon Au.D., C.C.C.-A [address] [place] [phone] 01/14/2024 1:00 PM CAPONIZER Diagnostic Department of Otorhinolaryngology in [place], [place] [address] [place] [address] Eric Renner M.D. [address] [place] [phone] Osiel Middleton Au.D. [address] [place] [phone] 01/14/2024 4:00 PM CAPONIZER Clinical Support Department of Otorhinolaryngology in [place], [place] [address] [place] [phone] Eric Renner M.D. [address] [place] [phone] Taj Nicolas, PJacquelinTJacquelin [address] [place] [phone] documented as of this encounter Visit Diagnoses Not on filedocumented in this encounter Additional Health Concerns Infection Onset Date Last Indicated Resolved Time Protective Environment 09/19/2023 09/19/2023 documented as of this encounter Care Teams Turning Sander Operator Relationship Specialty Start Date End Date Elsewhere, Pcp PCP - General Internal Medicine 08/21/23 documented as of this encounter
--- OUTSIDE RECORDS SUMMARY | 2023-11-20 19:24 | XMS_ITS | Encounter Summary ---
Author Organization [facility] Address [address] [place] [address] Care Team Providers Care Tread Cutter Name Role Phone Elsewhere, Pcp Primary Care Provider Unavailabl e Reason for Visit * Reason Onset Date Comments Med Question 09/14/2023 Encounter Details Date Type Department Care Team (Late st Contact Info) Description 09/14/2023 Clinical Communication Division of Hematology in [place], [place] [address] [place] [address] Eric Renner M.D. [address] [place] [address] Med Question Social History Tobacco Use Types Packs/Day Years Used Date Smoking Tobacco: Every Day Cigarettes 1.5 81.8 Started: 02/12/1982 Smokeless Tobacco: Never Alcohol Use Standard Drinks/Week Comments Not Currently 0 (1 standard drink = 0.6 oz pur e alcohol) rarely [facility] Utilities Answer Date Recorded In the past 12 months has [employer], gas, oil, or water [employer] threatened to shut off services in your [...] living situation today? I have a [facility] place to live 08/15/2023 Sex [...] CDT Office Visit Department of Otorhinolaryngology in [place], [place] [address] [place] [phone] Kendra Garcia M.D. [address] [place] [phone] 11/29/2023 7:45 AM CDT Clinical Communication Virtual Review in [place], [place] 200 [place] [address] 11/30/2023 7:00 AM CDT Appointment Department of Laboratory Medicine and Pathology, [facility], in [place], [place] [address] [place] [phone] Eric Renner M.D. [address] [place] [phone] 11/30/2023 9:00 AM CDT Office Visit Division of Hematology in [place], [place] [address] [place] [phone] Aníbal Reece APRN, C.N.P., M.S.N. [address] [place] [phone] 11/30/2023 12:15 PM CDT Infusion Department of Oncology in [place], [place] [address] [place] [phone] Eric Renner M.D. [address] [place] [phone] 12/20/2023 7:45 AM TILE FINISHER Clinical Communication Virtual Review in [place], [place] 200 [place] [address] 12/21/2023 7:00 AM TILE FINISHER Appointment Department of Laboratory Medicine and Pathology, [facility], in [place], [place] [address] [place] [phone] Eric Renner M.D. [address] [place] [phone] 12/21/2023 9:00 AM TILE FINISHER Office Visit Division of Hematology in [place], [place] [address] [place] [phone] Zulma Hickey APRN, C.NMaggi., M.S.N. [address] [place] [phone] 12/21/2023 10:00 AM TILE FINISHER Infusion Department of Oncology in [place], [place] [address] [place] [phone] Eric Renner M.D. [address] [place] [phone] 01/11/2024 7:00 AM TILE FINISHER Appointment Department of Laboratory Medicine and Pathology, [facility], in [place], [place] [address] [place] [address] Eric Renner M.D. [address] [place] [phone] 01/11/2024 9:00 AM TILE FINISHER Office Visit Division of Hematology in [place], [place] [address] [place] [address] Susu Cameron M.D. [address] [place] [phone] 01/11/2024 10:15 AM TILE FINISHER Infusion Department of Oncology in [place], [place] [address] [place] [address] Eric Renner M.D. [address] [place] [phone] 01/14/2024 9:15 AM TILE FINISHER Diagnostic Department of Otorhinolaryngology in [place], [place] [address] [place] [address] Eric Renner M.D. [address] [place] [phone] Wendy Moon Au.D., C.C.C.-A [address] [place] [phone] 01/14/2024 1:00 PM TILE FINISHER Diagnostic Department of Otorhinolaryngology in [place], [place] [address] [place] [address] Eric Renner M.D. [address] [place] [phone] Osiel Middleton Au.D. [address] [place] [phone] 01/14/2024 4:00 PM TILE FINISHER Clinical Support Department of Otorhinolaryngology in [place], [place] [address] [place] [phone] Eric Renner M.D. [address] [place] [phone] Taj Nicolas, P.TJacquelin [address] [place] [phone] documented as of this encounter Visit Diagnoses Not on filedocumented in this encounter Additional Health Concerns Infection Onset Date Last Indicated Resolved Time Protective Environment 09/19/2023 09/19/2023 documented as of this encounter Care Teams Tread Cutter Relationship Specialty Start Date End Date Elsewhere, Pcp PCP - General Internal Medicine 08/21/23 documented as of this encounter
--- OUTSIDE RECORDS SUMMARY | 2023-11-20 19:24 | XMS_ITS | Encounter Summary ---
Author Organization [facility] Address [address] [place] [address] Care Team Providers Care Stand Up Forklift Operator Name Role Phone Elsewhere, Pcp Primary Care Provider Unavailabl e Reason for Visit * Reason Onset Date Comments Med Question 09/20/2023 Encounter Details Date Type Department Care Team (Late st Contact Info) Description 09/20/2023 Clinical Communication Division of Hematology in [place], [place] [address] [place] [address] Eric Renner M.D. [address] [place] [address] Med Question Social History Tobacco Use Types Packs/Day Years Used Date Smoking Tobacco: Every Day Cigarettes 1.5 81.8 Started: 02/12/1982 Smokeless Tobacco: Never Alcohol Use Standard Drinks/Week Comments Not Currently 0 (1 standard drink = 0.6 oz pur e alcohol) rarely [facility] Utilities Answer Date Recorded In the past 12 months has [employer], gas, oil, or water [employer] threatened to shut off services in your [...] your living situation today? I have a [facility] place to live 08/15/2023 Sex and [...] CDT Office Visit Department of Otorhinolaryngology in [place], [place] [address] [place] [phone] Kendra Garcia M.D. [address] [place] [phone] 11/29/2023 7:45 AM CDT Clinical Communication Virtual Review in [place], [place] 200 [place] [address] 11/30/2023 7:00 AM CDT Appointment Department of Laboratory Medicine and Pathology, [facility], in [place], [place] [address] [place] [phone] Eric Renner M.D. [address] [place] [phone] 11/30/2023 9:00 AM CDT Office Visit Division of Hematology in [place], [place] [address] [place] [phone] Aníbal Reece APRN, C.N.P., M.S.N. [address] [place] [phone] 11/30/2023 12:15 PM CDT Infusion Department of Oncology in [place], [place] [address] [place] [phone] Eric Renner M.D. [address] [place] [phone] 12/20/2023 7:45 AM NETBACKUP ENGINEER Clinical Communication Virtual Review in [place], [place] 200 [place] [address] 12/21/2023 7:00 AM NETBACKUP ENGINEER Appointment Department of Laboratory Medicine and Pathology, [facility], in [place], [place] [address] [place] [phone] Eric Renner M.D. [address] [place] [phone] 12/21/2023 9:00 AM NETBACKUP ENGINEER Office Visit Division of Hematology in [place], [place] [address] [place] [phone] Zulma Hickey APRN, C.NMaggi., M.S.N. [address] [place] [phone] 12/21/2023 10:00 AM NETBACKUP ENGINEER Infusion Department of Oncology in [place], [place] [address] [place] [phone] Eric Renner M.D. [address] [place] [phone] 01/11/2024 7:00 AM NETBACKUP ENGINEER Appointment Department of Laboratory Medicine and Pathology, [facility], in [place], [place] [address] [place] [address] Eric Renner M.D. [address] [place] [phone] 01/11/2024 9:00 AM NETBACKUP ENGINEER Office Visit Division of Hematology in [place], [place] [address] [place] [address] Susu Cameron M.D. [address] [place] [phone] 01/11/2024 10:15 AM NETBACKUP ENGINEER Infusion Department of Oncology in [place], [place] [address] [place] [address] Eric Renner M.D. [address] [place] [phone] 01/14/2024 9:15 AM NETBACKUP ENGINEER Diagnostic Department of Otorhinolaryngology in [place], [place] [address] [place] [address] Eric Renner M.D. [address] [place] [phone] Wendy Moon Au.D., C.C.C.-A [address] [place] [phone] 01/14/2024 1:00 PM NETBACKUP ENGINEER Diagnostic Department of Otorhinolaryngology in [place], [place] [address] [place] [address] Eric Renner M.D. [address] [place] [phone] Osiel Middleton Au.D. [address] [place] [phone] 01/14/2024 4:00 PM NETBACKUP ENGINEER Clinical Support Department of Otorhinolaryngology in [place], [place] [address] [place] [phone] Eric Renner M.D. [address] [place] [phone] Taj Nicolas, P.TJacquelin [address] [place] [phone] documented as of this encounter Visit Diagnoses Diagnosis Sciatica Left documented in this encounter Additional Health Concerns Infection Onset Date Last Indicated Resolved Time Protective Environment 09/19/2023 09/19/2023 documented as of this encounter Care Teams Stand Up Forklift Operator Relationship Specialty Start Date End Date Elsewhere, Pcp PCP - General Internal Medicine 08/21/23 documented as of this encounter
--- OUTSIDE RECORDS SUMMARY | 2023-11-20 19:24 | XMS_ITS | Encounter Summary ---
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 200 [place] [address] [facility] Referral ID Status Reason Start Date Expiration Date Visits Re quested Visits Authorized [id number] Closed 09/11/2023 09/10/2024 1 1 Encounter Details Date Type Department Care Team (Latest Contact Info) Description 09/14/2023 8:15 AM CDT - 09/14/2023 11:59 PM CDT Hospital Encounter Department of Radiology, [facility], in [place], [place] [address] [place] [address] Eric Renner M.D. [address] [place] [address] Diffuse Large B Cell Lymphoma Unspecified Site [...] the past 12 months has th e [employer], gas, oil, or water [employer] threatened to shut off services in your [...] [facility] today? [facility] 08/15/2023 Sex and Gender [...] morning meal. 30 capsule 2 08/31/2023 11/29/2023 QUEtiapine (SEROqueL) 200 mg tablet Take 200 [...] 06/05/2022 oxyCODONE (Roxicodone) 5 mg immediate release tabletIndications:Prol onged Acute Pain/Traumatic Injury Take 1 tablet (5 mg total) by mouth every 6 (six) hours as needed for moderate pain or score 4-6 of 10 for up to 21 days Indication: Prolonged Acute Pain/Traumatic Injury. 30 tablet 09/11/2023 10/02/2023 cyclobenzaprine (FLEXERIL) 10 mg tabletIndications:Scia corry Left Take 1 tablet (10 mg total) by mouth 3 (three) times a day as needed for muscle spasms for up to 5 days. 15 tablet 06/06/2022 09/20/2023 famotidine (Pepcid) 20 mg tablet Take 20 mg by mouth daily. 07/27/2023 10/16/2023 documented as of this encounter Plan of Treatment Upcoming Encounters Date Type Department Care Team (Latest Contact Info) Description 11/28/2023 2:15 PM CDT Office Visit Department of Otorhinolaryngology in [place], [place] [address] [place] [phone] Kendra Garcia M.D. [address] [place] [phone] 11/29/2023 7:45 AM CDT Clinical Communication Virtual Review in [place], [place] [address] [place] [phone] 11/30/2023 7:00 AM CDT Appointment Department of Laboratory Medicine and Pathology, [facility], in [place], [place] [address] [place] [phone] Eric Renner M.D. [address] [place] [phone] 11/30/2023 9:00 AM CDT Office Visit Division of Hematology in [place], [place] [address] [place] [phone] Aníbal Reece APRN, C.N.P., M.S.N. [address] [place] [phone] 11/30/2023 12:15 PM CDT Infusion Department of Oncology in [place], [place] [address] [place] [phone] Eric Renner M.D. [address] [place] [phone] 12/20/2023 7:45 AM PALEONTOLOGICAL HELPER Clinical Communication Virtual Review in [place], [place] [address] [place] [address] 12/21/2023 7:00 AM PALEONTOLOGICAL HELPER Appointment Department of Laboratory Medicine and Pathology, [facility], in [place], [place] [address] [place] [phone] Eric Renner M.D. [address] [place] [phone] 12/21/2023 9:00 AM PALEONTOLOGICAL HELPER Office Visit Division of Hematology in [place], [place] [address] [place] [phone] Zulma Hickey APRN, C.N.P., M.S.N. [address] [place] [phone] 12/21/2023 10:00 AM PALEONTOLOGICAL HELPER Infusion Department of Oncology in [place], [place] [address] [place] [address] Eric Renner M.D. [address] [place] [phone] 01/11/2024 7:00 AM PALEONTOLOGICAL HELPER Appointment Department of Laboratory Medicine and Pathology, [facility] in [place], [place] [address] [place] [address] Eric Renner M.D. [address] [place] [phone] 01/11/2024 9:00 AM PALEONTOLOGICAL HELPER Office Visit Division of Hematology in [place], [place] [address] [place] [phone] Susu Cameron M.D. [address] [place] [phone] 01/11/2024 10:15 AM PALEONTOLOGICAL HELPER Infusion Department of Oncology in [place], [place] [address] [place] [phone] Eric Renner M.D. [address] [place] [phone] 01/14/2024 9:15 AM PALEONTOLOGICAL HELPER Diagnostic Department of Otorhinolaryngology in [place], [place] [address] [place] [phone] Eric Renner M.D. [address] [place] [phone] Wendy Moon Au.D., C.C.C.-A [address] [place] [phone] 01/14/2024 1:00 PM PALEONTOLOGICAL HELPER Diagnostic Department of Otorhinolaryngology in [place], [place] [address] [place] [address] Eric Renner M.D. [address] [place] [phone] Osiel Middleton Au.D. [address] [place] [phone] 01/14/2024 4:00 PM PALEONTOLOGICAL HELPER Clinical Support Department of Otorhinolaryngology in [place], [place] [address] [place] [address] Eric Renner M.D. 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 ??Intense FDG activity at the left pelvic mass consistent with biopsy-proven lymphoma. 2. ??Intense FDG activity within lymphadenopathy below the diaphragm. Mild uptake in the right hilum is indeterminate, could be reactive; however, involvement by lymphoproliferative disease cannot be completely excluded. 3. ??Hypermetabolic splenomegaly suggestive of splenic involvement by lymphoproliferative disease. Narrative 09/14/2023 12:06 PM CDT EXAM: ??PET CT WHOLE BODY FDG Serum glucose at time of F-18 FDG injection was 130 mg/dL. Patient followed standard dietary/fasting requirements for this exam. RADIOPHARMACEUTICAL/MEDS: Route: intravenous fludeoxyglucose F 18 injection CORRECTION (FDG F-18),4.93 millicurie TECHNIQUE: ??F-18 FDG PET/CT scan was performed from the vertex through the toes with low dose, non-contrast, free-breathing CT images for attenuation correction and anatomic localization (AC/AL), with imaging beginning at approximately 60 minutes after radiotracer injection. COMPARISON: ??MR pelvis 08/07/2023. CT neck 08/22/2023. INDICATION: ??Staging lymphoma. New diagnosis of diffuse large B-cell lymphoma of the left pelvis. Initial treatment strategy. The patient reports no recent vaccinations. FINDINGS: ??Intense FDG activity at the infiltrative mass centered in the left iliac bone extending to the left sacrum and left acetabulum as well as surrounding left pelvic musculature with SUV max of 26.8 (images 256). Intense FDG uptake in a few retroperitoneal and left pelvic lymph nodes. For example a 14 mm in short axis aortocaval node with SUV max of 20.8 (images 228), a 10 mm in short axis left periaortic node with SUV max of 17.4 (images 228), a retrocaval node with SUV max of 5.5 (images 221), a right common iliac node measuring 9 mm with SUV max of 6.7 (images 249) and a 24 x 15 mm node along the left pelvic wall with SUV max of 18.1 (images 275). Mild FDG activity in the right hilum with SUV max of 4 (image 132) is indeterminate, could represent reactive lymph node; however, involvement by lymphoproliferative disease cannot be excluded. Splenomegaly with diffuse FDG activity, greater than hepatic parenchyma. Spleen measures 18.5 cm on coronal views. No focal hepatic lesions. Diffuse uptake throughout the left hemicolon without any distinct mass or inflammatory fat stranding on CT fused images. No evidence of additional hypermetabolic osseous lesions. Incidental findings on low-dose unenhanced CT fused images: ??Mucous retention cyst versus polyp in the left maxillary sinus. Cholecystectomy. Scattered aortic calcification. Colonic diverticulosis. Scattered degenerative-like of the skeleton. Eric Monzon M.D. 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
--- OUTSIDE RECORDS SUMMARY | 2023-11-20 19:24 | XMS_ITS | Encounter Summary ---
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 200 [place] [address] [facility] Referral ID Status Reason Start Date Expiration Date Visits Re quested Visits Authorized [id number] Closed 09/11/2023 09/10/2024 1 1 Encounter Details Date Type Department Care Team (Latest Contact Info) Description 09/14/2023 6:13 AM CDT - 09/14/2023 8:14 AM CDT Hospital Encounter Department of Cardiovascular Diseases in [place], [place] [address] [place] [address] [place] [address] Diffuse Large B Cell Lymphoma Unspecified Site [...] your living situation today? I have a [employer] [facility] place to live 08/15/2023 Sex and Gender [...] CDT Office Visit Department of Otorhinolaryngology in [place], [place] [address] [place] [phone] Kendra Garcia M.D. [address] [place] [phone] 11/29/2023 7:45 AM CDT Clinical Communication Virtual Review in [place], [place] 200 [place] [address] 11/30/2023 7:00 AM CDT Appointment Department of Laboratory Medicine and Pathology, [facility], in [place], [place] [address] [place] [phone] Eric Renner M.D. [address] [place] [phone] 11/30/2023 9:00 AM CDT Office Visit Division of Hematology in [place], [place] [address] [place] [address] Aníbal Reece APRN, C.N.P., M.S.N. [address] [place] [phone] 11/30/2023 12:15 PM CDT Infusion Department of Oncology in [place], [place] [address] [place] [phone] Eric Renner M.D. [address] [place] [phone] 12/20/2023 7:45 AM TON CONTAINER FILLER Clinical Communication Virtual Review in [place], [place] [address] [place] [address] 12/21/2023 7:00 AM TON CONTAINER FILLER Appointment Department of Laboratory Medicine and Pathology, [facility] in [place], [place] [address] [place] [phone] Eric Renner M.D. [address] [place] [phone] 12/21/2023 9:00 AM TON CONTAINER FILLER Office Visit Division of Hematology in [place], [place] [address] [place] [address] Zulma Hickey APRN, C.N.P., M.S.N. [address] [place] [phone] 12/21/2023 10:00 AM TON CONTAINER FILLER Infusion Department of Oncology in [place], [place] [address] [place] [phone] Eric Renner M.D. [address] [place] [phone] 01/11/2024 7:00 AM TON CONTAINER FILLER Appointment Department of Laboratory Medicine and Pathology, [facility] in [place], [place] [address] [place] [phone] Eric Renner M.D. [address] [place] [phone] 01/11/2024 9:00 AM TON CONTAINER FILLER Office Visit Division of Hematology in [place], [place] [address] [place] [phone] Susu Cameron M.D. [address] [place] [phone] 01/11/2024 10:15 AM TON CONTAINER FILLER Infusion Department of Oncology in [place], [place] [address] [place] [phone] Eric Renner M.D. [address] [place] [phone] 01/14/2024 9:15 AM TON CONTAINER FILLER Diagnostic Department of Otorhinolaryngology in [place], [place] [address] [place] [phone] Eric Renner M.D. [address] [place] [phone] Wendy Moon Au.D., C.C.C.-A [address] [place] [phone] 01/14/2024 1:00 PM TON CONTAINER FILLER Diagnostic Department of Otorhinolaryngology in [place], [place] [address] [place] [address] Eric Renner M.D. [address] [place] [phone] Osiel Middleton Au.D. [address] [place] [phone] 01/14/2024 4:00 PM TON CONTAINER FILLER Clinical Support Department of Otorhinolaryngology in [place], [place] [address] [place] [phone] Eric Renner M.D. 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 Patient was in extreme pain laying in left lateral position. Optimal images acquired in left lateral position, intermittently, based on patients pain tolerance. LEFT VENTRICLE:Normal left ventricular chamber size. Normal left ventricular geometry. Calculated 2-D biplane volumetric left ventricular ejection fraction of 59%. Left ventricular strain assessment was performed but not reported based on tensioning machine operator's judgment (limited image quality) No regional wall [...] pericardial effusion. Findings There are no previous [facility] echocardiograms available forcomparison. Patient was in extreme pain laying in left lateral position.Optimal images acquired in left lateral position, intermittently, based onpatients pain tolerance. LEFT VENTRICLE:Normal left ventricular chamber size. Normal leftventricular geometry. Calculated 2-D biplane volumetric left ventricularejection fraction of 59%. Left ventricular strain assessment was performedbut not reported based on tensioning machine operator's judgment (limited image quality)No regional wall motion [...] Documents. Eric Monzon M.D. 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
--- OUTSIDE RECORDS SUMMARY | 2023-11-20 19:24 | XMS_ITS | Encounter Summary ---
Author Organization [facility] Address [address] [place] [address] Care Team Providers Care Manager Development Name Role Phone Elsewhere, Pcp Primary Care Provider Unavailabl e Reason for Referral * Outpatient (Routine) Specialty Diagnoses / Procedures Referred By Contac t Referred To Contact Hematology Oncology Eric Barr M.D. [address] [place] [address] [facility] Referral ID Status Reason Start Date Expiration Date Visits Re quested Visits Authorized * Outpatient (Routine) Specialty Diagnoses / Procedures Referred By Contac t Referred To Contact Hematology Oncology Eric Barr M.D. [address] [place] [address] [facility] Referral ID Status Reason Start Date Expiration Date Visits Re quested Visits Authorized * Outpatient (Routine) Specialty Diagnoses / Procedures Referred By Contac t Referred To Contact Hematology Oncology Eric Barr M.D. [address] [place] [address] [facility] Referral ID Status Reason Start Date Expiration Date Visits Re quested Visits Authorized * Outpatient (Routine) Specialty Diagnoses / Procedures Referred By Julio faustin Referred To Contact Hematology Oncology Eric Barr M.D. [address] [place] [phone] [facility] Referral ID Status Reason Start Date Expiration Date Visits Re quested Visits Authorized * Outpatient (Routine) Specialty Diagnoses / Procedures Referred By Julio t Referred To Contact Hematology Oncology Eric Barr M.D. [address] [place] [address] [facility] Referral ID Status Reason Start Date Expiration Date Visits Re quested Visits Authorized Reason for Visit * Outpatient (Routine) - Closed Specialty Diagnoses / Procedures Referred By Julio t Referred To Contact Hematology Oncology Eric Barr M.D. [address] [place] [phone] [facility] Referral ID Status Reason Start Date Expiration Date Visits Re quested Visits Authorized [id number] Closed 09/18/2023 03/19/2025 1 1 Encounter Details Date Type Department Care Team (Late st Contact Info) Description 09/27/2023 1:30 PM CDT Office Visit Division of Hematology in [place], [place] [address] [place] [phone] Eric Barr M.D. [address] [place] [phone] 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) (Primary Dx) Social History Tobacco Use Types Packs/Day Years Used Date Smoking Tobacco: Every Day Cigarettes 1.5 81.8 Started: 02/12/1982 Smokeless Tobacco: Never Alcohol Use Standard Drinks/Week Comments Not Currently 0 (1 standard drink = 0.6 oz pur e alcohol) rarely [facility] Utilities Answer Date Recorded In the past [...] your living situation today? I have a [facility] place to live 08/15/2023 Sex and Gender Information Value Date Recorded Sex Assigned at Female 08/15/2023 7:51 AM CDT Gender Identity Female 08/15/2023 7:51 AM CDT Sexual Orientation Straight 08/15/2023 7: 51 AM CDT documented as of this encounter Progress Notes * Eric Barr M.D. - 09/27/2023 1:30 PM CDT SUBJECTIVE REFERRING PROVIDER Jose Zhang M.D. REASON FOR VISIT DLBCL, advanced stage IPI24: 33% event risk in 24mo HAND SUTURE WINDER-IPI: 3 (intermediate risk) R-IPI: 2 (good prognosis) [...] the left hip. Images not reviewed by [facility]. August 23, 2023: CT-guided needle biopsy [...] with R-CHOP. INTERVAL HISTORY Returns to clinic for discussion of treatment for her newly diagnosed diffuse large B-cell lymphoma. Last clinic visit on September 11, 2023, in this interim no major clinical events. MEDICATIONS Reviewed REVIEW OF SYSTEMS All systems reviewed and negative except for HPI. OBJECTIVE There were no vitals filed for this visit. There is no height or weight on file to calculate BSA. PHYSICAL EXAM There were no vitals taken for this visit. Wt Readings from Last 3 Encounters: 09/27/23 84 kg 09/11/23 82.3 kg 08/31/23 80.2 kg General: Accompanied by . No acute distress. ECOG performance status is [0]. Counseling visit, patient not fully examined. DIAGNOSTICS I have reviewed the recent relevant labs, CT, MRI, and diagnostics. LABORATORY Recent Results (from the past 72 hour(s)) CBC with Differential, Blood Collection Time: 09/27/23 10:24 AM Result Value Hemoglobin 13.3 Hematocrit 40.3 Erythrocytes 4.13 MCV 97.6 RBC Distrib Width 13.2 Platelet Count 247 Leukocytes 6.2 Neutrophils 3.73 Lymphocytes 1.77 Monocytes 0.50 Eosinophils 0.15 Basophils 0.03 Comprehensive Metabolic Panel Collection Time: 09/27/23 10:24 AM Result Value Potassium, S 5.3 (H) Sodium, S 143 Chloride, S 105 Bicarbonate, S 28 Anion Gap 10 BUN (Blood Urea Nitrogen), S 15 Creatinine 0.76 Estimated GFR (eGFR) >90 Calcium, Total, S 9.4 Glucose, S 101 Protein, Total, S 6.2 (L) Albumin, S 3.9 Aspartate Aminotransferase (AST), S 15 Alkaline Phosphatase, S 137 (H) Alanine Aminotransferase (ALT), S 14 Bilirubin, Total, S <0.2 Uric Acid Collection Time: 09/27/23 10:24 AM Result Value Uric Acid, S 4.0 Phosphorus Inorganic Collection Time: 09/27/23 10:24 AM Result Value Phosphorus (Inorganic), S 3.9 LD (Lactate Dehydrogenase) Collection Time: 09/27/23 10:24 AM Result Value Lactate Dehydrogenase (LD), S 285 (H) RADIOLOGY Reviewed reports, per HPI. PATHOLOGY Reviewed report, per HPI. ASSESSMENT / PLAN #1 DLBCL, advanced stage Reviewed with the patient the results of the tests obtained since our last visit which confirms my initial impression. She has advanced stage diffuse large B- cell lymphoma in day recommend treatment with R-CHOP for 6 cycles. This is scheduled to begin tomorrow. Prednisone has been kept at 100 mg daily for 5 days. [facility]. Plan to obtain interim PET-CT after 2 cycles. I personally reviewed with the patient the purpose of treatment which is curative intent along with potential risks of therapy. Patient in agreement to proceed. #2 Nicotine dependence #3 Tobacco use Discussed with the patient the importance of smoking cessation with the goal of optimizing cancer treatment outcomes. Offered referral to the smoking cessation clinic which she has declined at this time. Follow-up: Return to clinic before next cycle Education We discussed the diagnosis and treatment plan in detail. The patient expressed understanding of thecontent. No apparent learning barriers were identified; learning preferences include listening. Orders Placed This Encounter Procedures CBC with Differential, Blood Comprehensive Metabolic Panel CBC with Differential, Blood Comprehensive Metabolic Panel CBC with Differential, Blood Comprehensive Metabolic Panel CBC with Differential, Blood Comprehensive Metabolic Panel CBC with Differential, Blood Comprehensive Metabolic Panel Hematology office visit (clinic) [facility]; Lymphoma; Pre-Chemo Hematology office visit (clinic) [facility]; Lymphoma; Pre-Chemo Hematology office visit (clinic) [place]; Lymphoma; Pre-Chemo Hematology office visit (clinic) [facility]; Lymphoma; Pre-Chemo Hematology office visit (clinic) [facility]; Lymphoma; Pre-Chemo Signed by: Bandar Monzon M.D. 09/27/2023 documented in this encounter Miscellaneous Notes * Addendum Note - Eric Barr M.D. - 09/27/2023 1:30 PM CDT Addended by: ERIC BARR on: 09/27/2023 02:41 PM Modules accepted: Orders * Addendum Note - Winsome Montoya Pharm.D., R.Ph., [facility] - 09/27/2023 1:30 PM CDTAddended by: WINSOME MONTOYA on: 09/27/2023 05:03 PM Modules accepted: Orders Electronically signed by Winsome Montoya Pharm.DJacquelin, R.Ph., [facility] at 09/27/2023 5:03 PM CDT documented in this encounter Plan of Treatment Upcoming Encounters Date Type Department Care Team (Latest Contact Info) Description 11/28/2023 2:15 PM CDT Office Visit Department of Otorhinolaryngology in [place], [place] [address] [place] [phone] Kendra Garcia M.D. [address] [place] [phone] 11/29/2023 7:45 AM CDT Clinical Communication Virtual Review in [place], [place] [address] [place] [address] 11/30/2023 7:00 AM CDT Appointment Department of Laboratory Medicine and Pathology, [facility], in [place], [place] [address] [place] [phone] Eric Barr M.D. [address] [place] [phone] 11/30/2023 9:00 AM CDT Office Visit Division of Hematology in [place], [place] [address] [place] [phone] Aníbal Reece APRN, C.N.P., M.S.N. [address] [place] [phone] 11/30/2023 12:15 PM CDT Infusion Department of Oncology in [place], [place] [address] [place] [phone] Eric Barr M.D. [address] [place] [phone] 12/20/2023 7:45 AM PENSION ADMINISTRATOR Clinical Communication Virtual Review in [place], [place] [address] [place] [phone] 12/21/2023 7:00 AM PENSION ADMINISTRATOR Appointment Department of Laboratory Medicine and Pathology, [facility] in [place], [place] [address] [place] [phone] Eric Barr M.D. [address] [place] [phone] 12/21/2023 9:00 AM PENSION ADMINISTRATOR Office Visit Division of Hematology in [place], [place] [address] [place] [phone] Zulma Hickey APRN, C.N.P., M.S.N. [address] [place] [phone] 12/21/2023 10:00 AM PENSION ADMINISTRATOR Infusion Department of Oncology in [place], [place] [address] [place] [phone] Eric Barr M.D. [address] [place] [phone] 01/11/2024 7:00 AM PENSION ADMINISTRATOR Appointment Department of Laboratory Medicine and Pathology, [facility], in [place], [place] [address] [place] [address] Eric Barr M.D. [address] [place] [phone] 01/11/2024 9:00 AM PENSION ADMINISTRATOR Office Visit Division of Hematology in [place], [place] [address] [place] [phone] Susu Cameron M.D. [address] [place] [phone] 01/11/2024 10:15 AM PENSION ADMINISTRATOR Infusion Department of Oncology in [place], [place] [address] [place] [address] Eric Barr M.D. [address] [place] [phone] 01/14/2024 9:15 AM PENSION ADMINISTRATOR Diagnostic Department of Otorhinolaryngology in [place], [place] [address] [place] [phone] Eric Barr M.D. [address] [place] [phone] Wendy Moon Au.D., C.C.C.-A [address] [place] [phone] 01/14/2024 1:00 PM PENSION ADMINISTRATOR Diagnostic Department of Otorhinolaryngology in [place], [place] [address] [place] [address] Eric Barr M.D. [address] [place] [address] Osiel Middleton Au.D. [address] [place] [phone] 01/14/2024 4:00 PM [facility] Clinical Support Department of Otorhinolaryngology in [place], [place] [address] [place] [address] Eric Barr M.D. [address] [place] [phone] Taj Nicolas P.T. [address] [place] [phone] Scheduled Orders Name Type Priority Associated Diagnoses Orde r Schedule CBC with Differential, Blood Lab Routine 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) Expected: 11/30/2023, Expires: 11/29/2026 Comprehensive Metabolic Panel Lab Routine 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) Expected: 11/30/2023, Expires: 11/29/2024 CBC with Differential, Blood Lab Routine 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) Expected: 12/21/2023, Expires: 12/20/2026 Comprehensive Metabolic Panel Lab Routine 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) Expected: 12/21/2023, Expires: 12/20/2024 CBC with Differential, Blood Lab Routine 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) Expected: 01/11/2024, Expires: 01/10/2027 Comprehensive Metabolic Panel Lab Routine 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) Expected: 01/11/2024, Expires: 01/10/2025 Scheduled Referrals Name Type Priority Associated Diagnoses Order Schedule Hematology office visit (clinic) [place]; Lymphoma; Pre-Chemo Outpatient Referral Routine 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) Expected: 10/19/2023, Expires: 10/18/2024 Hematology office visit (clinic) [facility]; Lymphoma; Pre-Chemo Outpatient Referral Routine 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) Expected: 11/09/2023, Expires: 11/08/2024 Hematology office visit (clinic) [facility]; Lymphoma; Pre-Chemo Outpatient Referral Routine 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) Expected: 11/30/2023, Expires: 11/29/2024 Hematology office visit (clinic) [facility]; Lymphoma; Pre-Chemo Outpatient Referral Routine 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) Expected: 12/21/2023, Expires: 12/20/2024 Hematology office visit (clinic) [facility]; Lymphoma; Pre-Chemo Outpatient Referral Routine 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) Expected: 01/11/2024, Expires: 01/10/2025 documented as of this encounter Results * (ABNORMAL) Comprehensive Metabolic Panel (11/09/2023 7:13 AM CDT) [facility] Potassium, S 5.1 3.6 - 5.2 mmol/L [...] CDT Eric Monzon M.D. LAB BLOOD ADD-ON [address] [address], [facility] [address] [address] * (ABNORMAL) CBC with Differential, Blood (11/09/2023 [...] - 6.45 x10(9)/L 11/09/2023 7:45 AM CDT PM Lymphocytes 0.90(L) 0.95 - 3.07 x10(9)/L 11/09/2023 7:45 AM CDT DTL Monocytes 1.01(H) 0.26 - 0.81 x10(9)/L 11/09/2023 7:45 AM CDT DTL Eosinophils <0.03 0.03 - 0.48 x10(9)/L 11/09/2023 7:45 AM CDT DTL Basophils 0.07 0.01 - 0.08 x10(9)/L 11/09/2023 7:45 AM CDT DTL Blood (Blood, Venous) 11/09/2023 7:13 AM CDT 11/09/2023 7:36 AM CDT Eric Monzon M.D. LAB BLOOD ADD-ON [facility] [address] [place] [address], [facility] DTL [facility] [address] [place] [address] [facility] [address] [place] [address] * (ABNORMAL) Comprehensive Metabolic Panel (10/17/2023 10:11 AM CDT) [facility] Potassium, S 4.4 3.6 - 5.2 mmol/L [...] CDT Eric Monzon M.D. LAB BLOOD ADD-ON [facility] [address] [place] [address], [facility] DTL [facility] [address] [place] [address] * (ABNORMAL) CBC with Differential, Blood (10/17/2023 [...] CDT Eric Monzon M.D. LAB BLOOD ADD-ON [facility] [address] [place], [place] [phone] DTL [facility] [place] [address] [place] [address] [facility] [address] [place] [address] documented in this encounter Visit Diagnoses Diagnosis 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)- Primary documented in this encounter Additional Health Concerns Infection Onset Date Last Indicated Resolved Time Protective Environment 09/19/2023 09/19/2023 documented as of this encounter Care Teams Manager Development Relationship Specialty Start Date End Date Elsewhere, Pcp PCP - General Internal Medicine 08/21/23 documented as of this encounter
--- OUTSIDE RECORDS SUMMARY | 2023-11-20 19:24 | XMS_ITS | Encounter Summary ---
Author Organization [facility] Address [address] [place] [address] Care Team Providers Care Furniture Stainer Name Role Phone Elsewhere, Pcp Primary Care Provider Unavailabl e Reason for Visit * Outpatient (Routine) - Closed Specialty Diagnoses / Procedures Referred By Contdelia t Referred To Contact Diagnoses Polyp Of Vocal Cord And Larynx Procedures ENT Speech therapy Kendra Garcia M.D. [address] [place] [phone] [facility] Referral ID Status Reason Start Date Expiration Date Visits Re quested Visits Authorized [id number] Closed 08/31/2023 08/30/2024 1 1 Encounter Details Date Type Department Care Team (Latest Contact Info) Description 09/14/2023 2:30 PM CDT Clinical Support Department of Otorhinolaryngology in [place], [place] [address] [place] [phone] Kendra Garcia M.D. [address] [place] [phone] Madeleine Catherine M.A., [facility]ER [facility]IC-MINING CONSULTANT [address] [place] [phone] Polyp Of Vocal Cord And Larynx Social History Tobacco Use Types Packs/Day Years Used Date Smoking Tobacco: Every Day Cigarettes 1.5 81.8 Started: 02/12/1982 Smokeless Tobacco: Never Alcohol Use Standard Drinks/Week Comments Not Currently 0 (1 standard drink = 0.6 oz pur e alcohol) rarely [facility] Utilities Answer Date Recorded In the past [...] your living situation today? I have a [facility] place to live 08/15/2023 Sex and Gender Information Value Date Recorded Sex Assigned at Female 08/15/2023 7:51 AM CDT Gender Identity Female 08/15/2023 7:51 AM CDT Sexual Orientation Straight 08/15/2023 7: 51 AM CDT documented as of this encounter Consult Notes * Madeleine Catherine M.A., CCC-MINING CONSULTANT - 09/14/2023 2:30 PM CDT Images from the original note were not included. CHIEF COMPLAINT/ PURPOSE OF VISIT Dysphonia HISTORY OF PRESENT ILLNESS Ana Fuller is a pleasant 53 y.o. woman referred to Speech Pathology ENT by Dr. Moore of [facility]hin[facility]. 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 On August 22, 2023, she underwent an ENT evaluation with Dr. Garcia. Her laryngeal exam was notable for bilateral polypoid carditis with leukoplakic change. On August 31, 2023, she underwent Microdirect laryngoscopy with CO2 laser excision of bilateral vocal folds lesions. Pathology demonstrated minute fragment of hyperkeratotic squamous epithelium. 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 She is currently undergoing further workup but will likely require chemo immunotherapy. Please refer to clinical notes for complete history and details. The patient was accompanied to today's consultation by her spouse, Tino. Ms. Fuller reported that she has been recovering well from surgery. She denied persistent tongue pain/numbness or altered taste. She completed nearly two weeks of voice rest and has been gradually increasing her voice use. Shefeels that her speaking voice has improved and is now 90% of normal. She enjoys singing for fun in the car and continues to have reduced vocal range with particular difficulty with the higher ranges.She denied changes in her swallowing or breathing. She quit smoking for 2 weeks but reported that she has now resumed smoking a few cigarettes a day. PHYSICAL EXAMINATION I. Phonation: Phonatory quality during connected speech and sustained phonation is mildly rough/hoarse (+1) and low in pitch (-1) though much improved from her initial evaluation on 08/22/2023. Breathing pattern is nonlabored at rest. II. Patient Self-Assessment: Patient rates the speaking voice today as 90 percent of normal. Patient rates concern about voice as 3/7, and effort when speaking as 3/10, both on a scale where 7 equalsmost extreme concern or extreme effort. Patient has difficulty within 20-30 minutes of speaking. Total score on the Voice Handicap Index-10 (VHI-10) is 31/40. Social History Tobacco Use Smoking status: Every Day Current packs/day: 1.50 Average packs/day: 1.5 packs/day for 81.6 years (122.4 ttl pk-yrs) Types: Cigarettes Start date: 02/12/1982 Smokeless tobacco: Never Vaping Use Vaping status: never used Substance Use Topics Alcohol use: Not Currently Comment: rarely Drug use: Never V. Videostrobolaryngoscopy Description: To assess structure and function of the larynx and vocal folds relative to the patient's chief complaint, flexible laryngoscopy with videostroboscopy was performed as a separate procedure. Verbal consent was obtained, universal protocol was followed. Lidocaine and phenylephrine were instilled into the right and/or left nostril(s). Olympus chip tip scope waspassed and larynx visualized. Upon completion,scope was removed and patient tolerated the procedurewell. Videostrobolaryngoscopy Specific Findings: Vocal folds are mobile bilaterally with full abduction during sniff and adduction during phonation. There is some fullness of the bilateral true vocal foldsas well as some healing tissue along the medial and superior aspects of the true vocal folds. Basedon videostroboscopy, mucosal waveform is mildly reduced, right > left. Closure is near complete with only a small posterior glottic gap appreciated. There is minimal supraglottic compression. IMPRESSION Ms. Fuller is doing well status post C02 laser excision of bilateral vocal fold lesions. Her laryngeal exam shows continued healing and her voice clarity is improved. Today, she rated her speaking voice at 90% of normal. We discussed the importance of ongoing vocal hygiene with emphasis on smokingcessation. She was also instructed in a gentle gargling with phonation technique. She is scheduled to see Dr. Garcia for follow-up on November 28, 2023. She was encouraged to contact us with any questions or concerns. I wished her the best with her upcoming treatments for recently diagnosed lymphoma. It was a pleasure participating in her care. PATIENT EDUCATION Ready to learn, no apparent learning barriers identified; learning preferences include listening. Diagnosis and treatment plan explained; opportunity to ask questions given; patient expressed understanding of content. DIAGNOSIS #1 Dysphonia documented in this encounter Plan of Treatment Upcoming Encounters Date Type Department Care Team (Latest Contact Info) Description 11/28/2023 2:15 PM CDT Office Visit Department of Otorhinolaryngology in [place], [place] [address] [place] [phone] Kendra Garcia M.D. [address] [place] [phone] 11/29/2023 7:45 AM CDT Clinical Communication Virtual Review in [place], [place] 200 [place] [phone] 11/30/2023 7:00 AM CDT Appointment Department of Laboratory Medicine and Pathology, [facility] in [place], [place] [address] [place] [phone] Eric Renner M.D. [address] [place] [phone] 11/30/2023 9:00 AM CDT Office Visit Division of Hematology in [place], [place] [address] [place] [phone] Aníbal Reece, FAVIOLA, C.N.P., M.S.N. [address] [place] [phone] 11/30/2023 12:15 PM CDT Infusion Department of Oncology in [place], [place] [address] [place] [phone] Eric Renner M.D. [address] [place] [phone] 12/20/2023 7:45 AM HOT MILL SHEARER Clinical Communication Virtual Review in [place], [place] 200 [place] [phone] 12/21/2023 7:00 AM HOT MILL SHEARER Appointment Department of Laboratory Medicine and Pathology, [facility], in [place], [place] [address] [place] [phone] Eric Renner M.D. [address] [place] [phone] 12/21/2023 9:00 AM HOT MILL SHEARER Office Visit Division of Hematology in [place], [place] [address] [place] [phone] Zulma Hickey APRN, C.N.P., M.S.N. [address] [place] [phone] 12/21/2023 10:00 AM HOT MILL SHEARER Infusion Department of Oncology in [place], [place] [address] [place] [phone] Eric Renner M.D. [address] [place] [phone] 01/11/2024 7:00 AM HOT MILL SHEARER Appointment Department of Laboratory Medicine and Pathology, [facility] in [place], [place] [address] [place] [phone] Eric Renner M.D. [address] [place] [phone] 01/11/2024 9:00 AM HOT MILL SHEARER Office Visit Division of Hematology in [place], [place] [address] [place] [phone] Susu Cameron M.D. [address] [place] [phone] 01/11/2024 10:15 AM HOT MILL SHEARER Infusion Department of Oncology in [place], [place] [address] [place] [phone] Eric Renner M.D. [address] [place] [phone] 01/14/2024 9:15 AM HOT MILL SHEARER Diagnostic Department of Otorhinolaryngology in [place], [place] [address] [place] [phone] Eric Renner M.D. [address] [place] [phone] Wendy Moon Au.D., C.CJacquelinCJacquelin-A [address] [place] [phone] 01/14/2024 1:00 PM HOT MILL SHEARER Diagnostic Department of Otorhinolaryngology in [place], [place] [address] [place] [phone] Eric Renner M.D. [address] [place] [phone] Osiel Middleton Au.D. [address] [place] [phone] 01/14/2024 4:00 PM HOT MILL SHEARER Clinical Support Department of Otorhinolaryngology in [place], [place] [address] [place] [phone] Eric Renner M.D. [address] [place] [phone] Taj Nicolas, P.TJacquelin [address] [place] [phone] documented as of this encounter Visit Diagnoses Diagnosis Polyp Of Vocal Cord And Larynx documented in this encounter Care Teams Furniture Stainer Relationship Specialty Start Date End Date Elsewhere, Pcp PCP - General Internal Medicine 08/21/23 documented as of this encounter
--- OUTSIDE RECORDS SUMMARY | 2023-11-20 19:24 | XMS_ITS | Encounter Summary ---
Author Organization [facility] Address [address] [place] [phone] Care Team Providers Care Bass String Winder Name Role Phone Elsewhere, Pcp Primary Care Provider Unavailabl e Reason for Visit * Episode Based Medications (Routine) - Authorized Specialty Diagnoses / Procedures Referred By Julio t Referred To Contact Diagnoses 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) Procedures SD ONDANSETRON HCL INJECTION SD PALONOSETRON HCL SD RITUXIMAB-ABBS 10MG INJ SD VINCRISTINE SULFATE 1 MG INJ INJ, CYCLOPHOSPHAMIDE, NOS SD DOXORUBIC HCL 10 MG VL CHEMO Eric Renner M.D. [address] [place] [phone] [facility] [address] [place] [phone] Referral ID Status Reason Start Date Expiration Date V isits Requested Visits Authorized [id number] Authorized 09/18/2023 09/18/2024 1 99 Encounter Details Date Type Department Care Team (Late st Contact Info) Description 09/27/2023 11:00 AM CDT Education Division of Hematology in [place], [place] [address] [place] [phone] Eric Renner M.D. [address] [place] [phone] Martha Holman R.N. [address] [place] [address] [phone] 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) Social History Tobacco Use Types Packs/Day Years Used Date Smoking Tobacco: Every Day Cigarettes 1.5 81.8 Started: 02/12/1982 Smokeless Tobacco: Never Alcohol Use Standard Drinks/Week Comments Not Currently 0 (1 standard drink = 0.6 oz pur e alcohol) rarely [facility] Utilities Answer Date Recorded In [...] your living situation today? I have a [facility] place to live 08/15/2023 Sex and Gender Information Value Date Recorded Sex Assigned at Female 08/15/2023 7:51 AM CDT Gender Identity Female 08/15/2023 7:51 AM CDT Sexual Orientation Straight 08/15/2023 7: 51 AM CDT documented as of this encounter Last Filed Vital Signs Vital Sign Reading Time Taken Comments Blood Pressure 118/75 09/27/2023 10:43 AM CDT Pulse 101 09/27/2023 10:43 AM CDT Temperature 36.7 ??C (98.1 ??F) 09/27/2023 10:43 AM C DT Respiratory Rate - - Oxygen Saturation 95% 09/27/2023 10:43 AM CDT Inhaled Oxygen Concentration - - Weight 84 kg (185 lb 1.2 oz) 09/27/2023 10:43 AM CDT Height 165.2 cm (5' 5.04) 09/27/2023 10:43 AM C DT Body Mass Index 30.76 09/27/2023 10:43 AM CDT documented in this encounter Progress Notes * Martha Holman R.N., O.C.N. - 09/27/2023 11:00 AM CDT Chemotherapy education. Diagnosis: Diffuse Large B Cell Lymphoma Lab preference: Dr. Steve - [facility], [facility] Therapy plan: R-CHOP LEARNING NEEDS ASSESSMENT: done with patient and spouse. No apparent barriers to learning present, ready to learn. Learning preferences include listening, seeing, reading, doing. INSTRUCTED ON THE FOLLOWING EDUCATION TOPIC(s) Chemotherapy: R-CHOP. Patient verbalizes understanding. Potential side effects: patient may experience, but not limited to: fatigue, weakness, anorexia, nausea, vomiting, diarrhea, constipation, neutropenia, increased risk for infection, increased risk for bleeding. EDUCATION MATERIAL(s) PROVIDED: - Chemocare/Micromedex and supplemental drug sheets specific to treatment plan - Cardio-Oncology Exercise Program [id number] - Navigator Notes [id number] - Chemotherapy and You Support for People With Cancer ([employer] [place]) [id number] - Eating Hints Patients Before, During , and After Treatment [id number] - Information For Patients Receiving Chemotherapy [id number] (green sheet) - Live Well After Cancer Treatment [id number], Integrative Medicine Program [id number] - Lymphoma Post-Treatment Summary Visit [id number] - Lymphoma Treatment Workbook [id number] - Managing Side Effects of Chemotherapy video [id number]. Reviewed what to expect in chemo treatment area, contact info, side effects of chemotherapy and howto manage, as well as when to call. Questions answered. Per Dr. Herman treatment letter completed for weekly CBC with differential. RESPONSE: Will need reinforced teaching throughout treatment and subsequent cycles TIME WITH PATIENT: 90 min #1 Nurse education visit. documented in this encounter Plan of Treatment Upcoming Encounters Date Type Department Care Team (Latest Contact Info) Description 11/28/2023 2:15 PM CDT Office Visit Department of Otorhinolaryngology in [address] [phone] Kendra Garcia M.D. [address] [place] [phone] 11/29/2023 7:45 AM CDT Clinical Communication Virtual Review in [address] [phone] 11/30/2023 7:00 AM CDT Appointment Department of Laboratory Medicine and Pathology, [facility], in [address] [phone] Eric Renner M.D. [address] [place] [phone] 11/30/2023 9:00 AM CDT Office Visit Division of Hematology in [address] [phone] Aníbal Reece, FAVIOLA, C.N.P., M.S.N. [address] [place] [phone] 11/30/2023 12:15 PM CDT Infusion Department of Oncology in [address] [phone] Eric Renner M.D. [address] [place] [phone] 12/20/2023 7:45 AM CHAIN HOIST OPERATOR Clinical Communication Virtual Review in [place], [place] 200 [place] [phone] 12/21/2023 7:00 AM CHAIN HOIST OPERATOR Appointment Department of Laboratory Medicine and Pathology, [facility] in [place], [place] [address] [place] [phone] Eric Renner M.D. [address] [place] [phone] 12/21/2023 9:00 AM CHAIN HOIST OPERATOR Office Visit Division of Hematology in [place], [place] [address] [place] [phone] Zulma Hickey APRN, C.N.P., M.S.N. [address] [place] [phone] 12/21/2023 10:00 AM CHAIN HOIST OPERATOR Infusion Department of Oncology in [place], [place] [address] [place] [phone] Eric Renner M.D. [address] [place] [phone] 01/11/2024 7:00 AM CHAIN HOIST OPERATOR Appointment Department of Laboratory Medicine and Pathology, [facility], in [place], [place] [address] [place] [phone] Eric Renner M.D. [address] [place] [phone] 01/11/2024 9:00 AM CHAIN HOIST OPERATOR Office Visit Division of Hematology in [place], [place] [address] [place] [phone] Susu Cameron M.D. [address] [place] [phone] 01/11/2024 10:15 AM CHAIN HOIST OPERATOR Infusion Department of Oncology in [place], [place] [address] [place] [phone] Eric Renner M.D. [address] [place] [phone] 01/14/2024 9:15 AM CHAIN HOIST OPERATOR Diagnostic Department of Otorhinolaryngology in [place], [place] [address] [place] [phone] Eric Renner M.D. [address] [place] [phone] Wendy Moon Au.D., C.CJacquelinCJacquelin-Grecia [address] [place] [phone] 01/14/2024 1:00 PM CHAIN HOIST OPERATOR Diagnostic Department of Otorhinolaryngology in [place], [place] [address] [place] [phone] Eric Renner M.D. [address] [place] [phone] Osiel Middleton Au.D. [address] [place] [phone] 01/14/2024 4:00 PM CHAIN HOIST OPERATOR Clinical Support Department of Otorhinolaryngology in [place], [place] [address] [place] [phone] Eric Renner M.D. [address] [place] [phone] Taj Nicolas, P.TJacquelin [address] [place] [phone] documented as of this encounter Visit Diagnoses Diagnosis 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) documented in this encounter Additional Health Concerns Infection Onset Date Last Indicated Resolved Time Protective Environment 09/19/2023 09/19/2023 documented as of this encounter Care Teams Bass String Winder Relationship Specialty Start Date End Date Elsewhere, Pcp PCP - General Internal Medicine 08/21/23 documented as of this encounter
--- OUTSIDE RECORDS SUMMARY | 2023-11-20 19:24 | XMS_ITS | Encounter Summary ---
Author Organization [facility] Address [address] [place] [address] Care Team Providers Care Bike Mechanic Name Role Phone Elsewhere, Pcp Primary Care Provider Unavailabl e Encounter Details Date Type Department Care Team (Latest Contact Info) Description 09/14/2023 2:00 PM CDT Ancillary Procedure Department of Otorhinolaryngology Social History Tobacco Use Types Packs/Day Years Used Date Smoking Tobacco: Every Day Cigarettes 1.5 81.8 Started: 02/12/1982 Smokeless Tobacco: Never Alcohol Use Standard Drinks/Week Comments Not Currently 0 (1 standard drink = 0.6 oz pur e alcohol) rarely C Utilities Answer Date Recorded In the past 12 months has th e electric, gas, oil, or water [employer] threatened to shut off services in your [...] your living situation today? I have a [facility] place to live 08/15/2023 Sex and [...] CDT Office Visit Department of Otorhinolaryngology in [place], [place] [address] [place] [phone] Kendra Garcia M.D. [address] [place] [phone] 11/29/2023 7:45 AM CDT Clinical Communication Virtual Review in [place], [place] 200 [place] [phone] 11/30/2023 7:00 AM CDT Appointment Department of Laboratory Medicine and Pathology, [facility], in [place], [place] [address] [place] [phone] Eric Renner M.D. [address] [place] [phone] 11/30/2023 9:00 AM CDT Office Visit Division of Hematology in [place], [place] [address] [place] [address] Aníbal Reece, FAVIOLA, C.N.P., M.S.N. [address] [place] [phone] 11/30/2023 12:15 PM CDT Infusion Department of Oncology in [place], [place] [address] [place] [phone] Eric Renner M.D. [address] [place] [phone] 12/20/2023 7:45 AM TUBE TELLER Clinical Communication Virtual Review in [place], [place] 200 [place] [address] 12/21/2023 7:00 AM TUBE TELLER Appointment Department of Laboratory Medicine and Pathology, [facility] in [place], [place] [address] [place] [phone] Eric Renner M.D. [address] [place] [phone] 12/21/2023 9:00 AM TUBE TELLER Office Visit Division of Hematology in [place], [place] [address] [place] [phone] Zulma Hickey APRN, C.N.P., M.S.N. [address] [place] [phone] 12/21/2023 10:00 AM TUBE TELLER Infusion Department of Oncology in [place], [place] [address] [place] [phone] Eric Renner M.D. [address] [place] [phone] 01/11/2024 7:00 AM TUBE TELLER Appointment Department of Laboratory Medicine and Pathology, [facility], in [place], [place] [address] [place] [address] Eric Renner M.D. [address] [place] [address] 01/11/2024 9:00 AM TUBE TELLER Office Visit Division of Hematology in [place], [place] [address] [place] [address] Susu Cameron M.D. [address] [place] [phone] 01/11/2024 10:15 AM TUBE TELLER Infusion Department of Oncology in [place], [place] [address] [place] [address] Eric Renner M.D. [address] [place] [phone] 01/14/2024 9:15 AM TUBE TELLER Diagnostic Department of Otorhinolaryngology in [place], [place] [address] [place] [address] Eric Renner M.D. [address] [place] [phone] Wendy Moon Au.D., C.CJacquelinCJacquelin-Grecia [address] [place] [phone] 01/14/2024 1:00 PM TUBE TELLER Diagnostic Department of Otorhinolaryngology in [place], [place] [address] [place] [address] Eric Renner M.D. [address] [place] [phone] Osiel Middleton Au.D. [address] [place] [phone] 01/14/2024 4:00 PM TUBE TELLER Clinical Support Department of Otorhinolaryngology in [place], [place] [address] [place] [address] Eric Renner M.D. [address] [place] [address] Taj Nicolas PGirish [address] [place] [phone] documented as of this encounter Procedures Procedure Name Priority Date/Time Associated Diagnosis Comments OTORHINOLARYNGOLOGY IMAGE EXAM Routine 09/14/2023 2:00 PM CDT documented in this encounter Results * Otorhinolaryngology Image Exam-Otorhinolaryngology Image Exam (09/14/2023 2:00 PM CDT) 09/14/2023 2:00 PM CDT Narrative IIMS - 09/14/2023 2:20 PM CDT This order has been created and auto-finalized to support the import of images acquired without order. The clinical documentation to support these images can be found on the encounter that produced images. Provider Not In System IMG NON RAD IMAGI NG PROCEDURES IIMS NA documented in this encounter Visit Diagnoses Not on filedocumented in this encounter Care Teams Bike Mechanic Relationship Specialty Start Date End Date Elsewhere, Pcp PCP - General Internal Medicine 08/21/23 documented as of this encounter
--- OUTSIDE RECORDS SUMMARY | 2023-11-20 19:24 | XMS_ITS | Encounter Summary ---
Author Organization [facility] Address [address] [place] [address] Care Team Providers Care Monkey Trainer Name Role Phone Elsewhere, Pcp Primary Care Provider Unavailabl e Encounter Details Date Type Department Care Team (Latest Contact Info) Description 09/14/2023 2:00 AM CDT Ancillary Procedure Department of Otorhinolaryngology Social History Tobacco Use Types Packs/Day Years Used Date Smoking Tobacco: Every Day Cigarettes 1.5 81.8 Started: 02/12/1982 Smokeless Tobacco: Never Alcohol Use Standard Drinks/Week Comments Not Currently 0 (1 standard drink = 0.6 oz pur e alcohol) rarely C Utilities Answer Date Recorded In the past 12 months has th e electric, gas, oil, or water [employer] threatened to shut off services in your [...] living situation today? I have a [facility] place to live 08/15/2023 Sex and Gender Information Value Date Recorded Sex Assigned at Female 08/15/2023 7:51 AM CDT Gender Identity Female 08/15/2023 7:51 AM CDT Sexual Orientation Straight 08/15/2023 7: 51 AM CDT documented as of this encounter Plan of Treatment Upcoming Encounters Date Type Department Care Team (Latest Contact Info) Description 11/28/2023 2:15 PM CDT Office Visit Department of Otorhinolaryngology in [place], [place] [address] [place] [phone] Kendra Garcia M.D. [address] [place] [phone] 11/29/2023 7:45 AM CDT Clinical Communication Virtual Review in [place], [place] 200 [place] [address] 11/30/2023 7:00 AM CDT Appointment Department of Laboratory Medicine and Pathology, [facility], in [place], [place] [address] [place] [phone] Eric Renner M.D. [address] [place] [phone] 11/30/2023 9:00 AM CDT Office Visit Division of Hematology in [place], [place] [address] [place] [address] Aníbal Reece, FAVIOLA, C.N.P., M.S.N. [address] [place] [phone] 11/30/2023 12:15 PM CDT Infusion Department of Oncology in [place], [place] [address] [place] [phone] Eric Renner M.D. [address] [place] [phone] 12/20/2023 7:45 AM THREADING MACHINE FEEDER AUTOMATIC Clinical Communication Virtual Review in [place], [place] 200 [place] [address] 12/21/2023 7:00 AM THREADING MACHINE FEEDER AUTOMATIC Appointment Department of Laboratory Medicine and Pathology, [facility] in [place], [place] [address] [place] [phone] Eric Renner M.D. [address] [place] [phone] 12/21/2023 9:00 AM THREADING MACHINE FEEDER AUTOMATIC Office Visit Division of Hematology in [place], [place] [address] [place] [phone] Zulma Hickey APRN, C.N.P., M.S.N. [address] [place] [phone] 12/21/2023 10:00 AM THREADING MACHINE FEEDER AUTOMATIC Infusion Department of Oncology in [place], [place] [address] [place] [phone] Eric Renner M.D. [address] [place] [phone] 01/11/2024 7:00 AM THREADING MACHINE FEEDER AUTOMATIC Appointment Department of Laboratory Medicine and Pathology, [facility], in [place], [place] [address] [place] [address] Eric Renner M.D. [address] [place] [address] 01/11/2024 9:00 AM THREADING MACHINE FEEDER AUTOMATIC Office Visit Division of Hematology in [place], [place] [address] [place] [address] Susu Cameron M.D. [address] [place] [phone] 01/11/2024 10:15 AM THREADING MACHINE FEEDER AUTOMATIC Infusion Department of Oncology in [place], [place] [address] [place] [address] Eric Renner M.D. [address] [place] [phone] 01/14/2024 9:15 AM THREADING MACHINE FEEDER AUTOMATIC Diagnostic Department of Otorhinolaryngology in [place], [place] [address] [place] [address] Eric Renner M.D. [address] [place] [phone] Wendy Moon Au.D., C.CJacquelinCJacquelin-Grecia [address] [place] [phone] 01/14/2024 1:00 PM THREADING MACHINE FEEDER AUTOMATIC Diagnostic Department of Otorhinolaryngology in [place], [place] [address] [place] [address] Eric Renner M.D. [address] [place] [phone] Osiel Middleton Au.D. [address] [place] [phone] 01/14/2024 4:00 PM THREADING MACHINE FEEDER AUTOMATIC Clinical Support Department of Otorhinolaryngology in [place], [place] [address] [place] [address] Eric Renner M.D. [address] [place] [address] Taj Nicolas PGirish [address] [place] [phone] documented as of this encounter Procedures Procedure Name Priority Date/Time Associated Diagnosis Comments OTORHINOLARYNGOLOGY IMAGE EXAM Routine 09/14/2023 2:00 AM CDT documented in this encounter Results * ENT Procedure-Otorhinolaryngology Image Exam (09/14/2023 2:00 AM CDT) Narrative IIMS - 09/14/2023 2:19 PM CDT This order has been created and auto-finalized to support the import of images acquired without order. The clinical documentation to support these images can be found on the encounter that produced images. Provider Not In System IMG NON RAD IMAGI NG PROCEDURES IIMS NA documented in this encounter Visit Diagnoses Not on filedocumented in this encounter Care Teams Monkey Trainer Relationship Specialty Start Date End Date Elsewhere, Pcp PCP - General Internal Medicine 08/21/23 documented as of this encounter
--- OUTSIDE RECORDS SUMMARY | 2023-11-20 19:24 | XMS_ITS | Encounter Summary ---
Author Organization [facility] Address [address] [place] [address] Care Team Providers Care Loaders Name Role Phone Elsewhere, Pcp Primary Care Provider Unavailabl e Reason for Referral * Outpatient (Routine) - Closed Specialty Diagnoses / Procedures Referred By Contac roxie Referred To Contact Hematology Oncology Eric Renner M.D. 200 [place] [address] [facility] Referral ID Status Reason Start Date Expiration Date Visits Re quested Visits Authorized [id number] Closed 09/18/2023 03/19/2025 1 1 * Specialty Diagnoses / Procedures Referred By Julio faustin Referred To Contact Eric Renner M.D. 200 [place] [address] [facility] Referral ID Status Reason Start Date Expiration Date Visits Re quested Visits Authorized Encounter Details Date Type Department Care Team (Late st Contact Info) Description 09/18/2023 Orders Only Division of Hematology in [place], [place] [address] [place] [phone] Eric Renner M.D. 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 I have a [facility] place to live 08/15/2023 Sex [...] CDT Office Visit Department of Otorhinolaryngology in [place], [place] [address] [place] [phone] Kendra Garcia M.D. [address] [place] [phone] 11/29/2023 7:45 AM CDT Clinical Communication Virtual Review in [place], [place] 200 [place] [address] 11/30/2023 7:00 AM CDT Appointment Department of Laboratory Medicine and Pathology, [facility] in [place], [place] [address] [place] [phone] Eric Renner M.D. [address] [place] [phone] 11/30/2023 9:00 AM CDT Office Visit Division of Hematology in [address] [phone] Aníbal Reece, PICKER OPERATOR, C.N.P., M.S.N. [address] [place] [phone] 11/30/2023 12:15 PM CDT Infusion Department of Oncology in [place], [place] [address] [place] [phone] Eric Renner M.D. [address] [place] [phone] 12/20/2023 7:45 AM HAT TRIMMER Clinical Communication Virtual Review in [place], [place] 200 [place] [address] 12/21/2023 7:00 AM HAT TRIMMER Appointment Department of Laboratory Medicine and Pathology, [facility] in [place], [place] [address] [place] [address] Eric Renner M.D. [address] [place] [phone] 12/21/2023 9:00 AM HAT TRIMMER Office Visit Division of Hematology in [place], [place] [address] [place] [address] Zulma Hickey APRN, C.N.P., M.S.N. [address] [place] [phone] 12/21/2023 10:00 AM HAT TRIMMER Infusion Department of Oncology in [place], [place] [address] [place] [address] Eric Renner M.D. [address] [place] [phone] 01/11/2024 7:00 AM HAT TRIMMER Appointment Department of Laboratory Medicine and Pathology, [facility], in [place], [place] [address] [place] [address] Eric Renner M.D. [address] [place] [phone] 01/11/2024 9:00 AM HAT TRIMMER Office Visit Division of Hematology in [place], [place] [address] [place] [phone] Susu Cameron M.D. [address] [place] [phone] 01/11/2024 10:15 AM HAT TRIMMER Infusion Department of Oncology in [place], [place] [address] [place] [address] Eric Renner M.D. [address] [place] [phone] 01/14/2024 9:15 AM HAT TRIMMER Diagnostic Department of Otorhinolaryngology in [place], [place] [address] [place] [address] Eric Renner M.D. [address] [place] [phone] Wendy Moon Au.D., C.CJacquelinCJacquelin-A [address] [place] [phone] 01/14/2024 1:00 PM HAT TRIMMER Diagnostic Department of Otorhinolaryngology in [place], [place] [address] [place] [phone] Eric Renner M.D. [address] [place] [phone] Osiel Middleton Au.D. [address] [place] [phone] 01/14/2024 4:00 PM HAT TRIMMER Clinical Support Department of Otorhinolaryngology in [place], [place] [address] [place] [phone] Eric Renner M.D. [address] [place] [phone] Taj Nicolas, P.TJacquelin [address] [place] [phone] Scheduled Referrals Name Type Priority Associated Diagnoses Order Schedule Hematology - Chemo education visit (clinic) Outpatient Referral Routine 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) Expected: 09/27/2023, Expires: 09/26/2024 Hematology office visit (clinic) [place]; Lymphoma; Pre-Chemo Outpatient Referral Routine Expected : 09/27/2023, Expires: 12/18/2024 documented as of this encounter Results * (ABNORMAL) LD (Lactate Dehydrogenase) (09/27/2023 10:24 AM CDT) Lactate Dehydrogenase (LD), S 285(H) 122 - 222 U/L 09/27/2023 11:18 AM CDT DTL Blood (Blood, Venous) 09/27/2023 10:24 AM CDT 09/27/2023 10:58 AM CDT Eric Monzon M.D. LAB BLOOD NON ADD-ON Performing Organization Address City/[facility]/ZIP Co de Phone Number [facility] 200 [place] [address] * Phosphorus Inorganic (09/27/2023 10:24 AM CDT) [facility] Phosphorus (Inorganic), S 3.9 2.5 - 4.5 mg/dL 09/27/2023 11:18 AM CDT DT Blood (Blood, Venous) 09/27/2023 10:24 AM CDT 09/27/2023 10:58 AM CDT Eric Monzon M.D. LAB BLOOD ADD-ON [facility] [address] 200 [place] [address] * Uric Acid (09/27/2023 10:24 AM CDT) Pathologist [facility] Uric Acid, S 4.0 2.7 - 6.1 mg/dL 09/27/2023 11:18 AM CDT DTL Blood (Blood, Venous) 09/27/2023 10:24 AM CDT 09/27/2023 10:58 AM CDT Eric Monzon M.D. LAB BLOOD ADD-ON [facility] [address] [place] [address], [place] DTL [facility] [address] [place] [address] * (ABNORMAL) Comprehensive Metabolic Panel (09/27/2023 10:24 AM CDT) Pathologist [facility] Potassium, S 5.3(H) 3.6 - 5.2 mmol/L [...] CDT Eric Monzon M.D. LAB BLOOD ADD-ON [facility] [address] [place] [address], [facility] DTL [place] [address] [place] [address] * CBC with Differential, Blood (09/27/2023 10:24 [...] - 6.45 x10(9)/L 09/27/2023 11:54 AM CDT [facility] Comment:Rechecked Lymphocytes 1.77 0.95 - 3.07 x10(9)/L 09/27/2023 11:54 AM CDT DTL Monocytes 0.50 0.26 - 0.81 x10(9)/L 09/27/2023 11:54 AM CDT DTL Eosinophils 0.15 0.03 - 0.48 x10(9)/L 09/27/2023 11:54 AM CDT DTL Basophils 0.03 0.01 - 0.08 x10(9)/L 09/27/2023 11:54 AM CDT DTL Blood (Blood, Venous) 09/27/2023 10:24 AM CDT 09/27/2023 10:48 AM CDT Eric Monzon M.D. LAB BLOOD ADD-ON [facility] 200 [place] [address], [facility] DTL [facility] [address] [place] [address] DHPM [facility] 200 [place] [address] documented in this encounter Visit Diagnoses Diagnosis 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)- Primary documented in this encounter Care Teams Loaders Relationship Specialty Start Date End Date Elsewhere, Pcp PCP - General Internal Medicine 08/21/23 documented as of this encounter
--- OUTSIDE RECORDS SUMMARY | 2023-11-20 19:24 | XMS_ITS | Encounter Summary ---
Author Organization [facility] Address [address] [place] [address] Care Team Providers Care Pmo Business Analyst Name Role Phone Elsewhere, Pcp Primary Care Provider Unavailabl e Reason for Visit * Reason Onset Date Comments NEW HEM LYMPH CHEMO 09/18/2023 Encounter Details Date Type Department Care Team (Latest Contact Info) Description 09/18/2023 Clinical Communication Division of Hematology in [place], [place] [address] [place] [address] Eric Renner M.D. [address] [place] [address] NEW HEM LYMPH CHEMO Social History Tobacco Use Types Packs/Day Years Used Date Smoking Tobacco: Every Day Cigarettes 1.5 81.8 Started: 02/12/1982 Smokeless Tobacco: Never Alcohol Use Standard Drinks/Week Comments Not Currently 0 (1 standard drink = 0.6 oz pur e alcohol) rarely [facility] Utilities Answer Date Recorded In the past 12 months has e [employer], gas, oil, or water [employer] threatened to shut off services in your [...] Date Recorded Dental: Regular Dentist Yes 08/15/19 24 Employment Answer Date Recorded Employment status Unemployed/not in th e paid workforce but seeking employment 08/15/2023 Housing Stability Answer Date Recorded What is your living situation today? I have a [facility] place to live 08/15/2023 Sex and [...] CDT Office Visit Department of Otorhinolaryngology in [place], [place] [address] [place] [phone] Kenrda Garcia M.D. [address] [place] [phone] 11/29/2023 7:45 AM CDT Clinical Communication Virtual Review in [place], [place] 200 [place] [address] 11/30/2023 7:00 AM CDT Appointment Department of Laboratory Medicine and Pathology, [facility], in [place], [place] [address] [place] [phone] Eric Renner M.D. [address] [place] [phone] 11/30/2023 9:00 AM CDT Office Visit Division of Hematology in [place], [place] [address] [place] [phone] Aníbal Reece APRN, C.N.P., M.S.N. [address] [place] [phone] 11/30/2023 12:15 PM CDT Infusion Department of Oncology in [place], [place] [address] [place] [phone] Eric Renner M.D. [address] [place] [phone] 12/20/2023 7:45 AM MANAGER ADMINISTRATIVE SERVICES Clinical Communication Virtual Review in [place], [place] 200 [place] [address] 12/21/2023 7:00 AM MANAGER ADMINISTRATIVE SERVICES Appointment Department of Laboratory Medicine and Pathology, [facility], in [place], [place] [address] [place] [phone] Eric Renner M.D. [address] [place] [phone] 12/21/2023 9:00 AM MANAGER ADMINISTRATIVE SERVICES Office Visit Division of Hematology in [place], [place] [address] [place] [phone] Zulma Hickey APRN, C.NMaggi., M.S.N. [address] [place] [phone] 12/21/2023 10:00 AM MANAGER ADMINISTRATIVE SERVICES Infusion Department of Oncology in [place], [place] [address] [place] [phone] Eric Renner M.D. [address] [place] [phone] 01/11/2024 7:00 AM MANAGER ADMINISTRATIVE SERVICES Appointment Department of Laboratory Medicine and Pathology, [facility], in [place], [place] [address] [place] [address] Eric Renner M.D. [address] [place] [phone] 01/11/2024 9:00 AM MANAGER ADMINISTRATIVE SERVICES Office Visit Division of Hematology in [place], [place] [address] [place] [address] Susu Cameron M.D. [address] [place] [phone] 01/11/2024 10:15 AM MANAGER ADMINISTRATIVE SERVICES Infusion Department of Oncology in [place], [place] [address] [place] [address] Eric Renner M.D. [address] [place] [address] 01/14/2024 9:15 AM MANAGER ADMINISTRATIVE SERVICES Diagnostic Department of Otorhinolaryngology in [place], [place] [address] [place] [address] Eric Renner M.D. [address] [place] [address] Wendy Moon Au.D., C.C.C.-A [address] [place] [phone] 01/14/2024 1:00 PM MANAGER ADMINISTRATIVE SERVICES Diagnostic Department of Otorhinolaryngology in [place], [place] [address] [place] [address] Eric Renner M.D. [address] [place] [phone] Osiel Middleton Au.D. [address] [place] [phone] 01/14/2024 4:00 PM MANAGER ADMINISTRATIVE SERVICES Clinical Support Department of Otorhinolaryngology in [place], [place] [address] [place] [phone] Eric Renner M.D. [address] [place] [phone] Taj Nicolas, P.TJacquelin [address] [place] [phone] documented as of this encounter Visit Diagnoses Not on filedocumented in this encounter Additional Health Concerns Infection Onset Date Last Indicated Resolved Time Protective Environment 09/19/2023 09/19/2023 documented as of this encounter Care Teams Pmo Business Analyst Relationship Specialty Start Date End Date Elsewhere, Pcp PCP - General Internal Medicine 08/21/23 documented as of this encounter
--- OUTSIDE RECORDS SUMMARY | 2023-11-20 19:25 | XMS_ITS | Encounter Summary ---
Author Organization [facility] Address [address] [place] [address] Care Team Providers Care Industrial Economics Teacher Name Role Phone Elsewhere, Pcp Primary Care Provider Unavailabl e Reason for Visit * Reason Onset Date Comments MARY/FORMS 09/11/2023 Encounter Details Date Type Department Care Team (Late st Contact Info) Description 09/11/2023 Clinical Communication Division of Hematology in [place], [place] [address] [place] [address] Eric Renner M.D. [address] [place] [address] MARY/FORMS Social History Tobacco Use Types Packs/Day Years Used Date Smoking Tobacco: Every Day Cigarettes 1.5 81.8 Started: 02/12/1982 Smokeless Tobacco: Never Alcohol Use Standard Drinks/Week Comments Not Currently 0 (1 standard drink = 0.6 oz pur e alcohol) rarely [facility] Utilities Answer Date Recorded In the past 12 months has e [employer], gas, oil, or water [employer] threatened to shut off services in your [...] your living situation today? I have a [facility] place to live 08/15/2023 Sex [...] CDT Office Visit Department of Otorhinolaryngology in [place], [place] [address] [place] [phone] Kendra Garcia M.D. [address] [place] [phone] 11/29/2023 7:45 AM CDT Clinical Communication Virtual Review in [place], [place] 200 [place] [address] 11/30/2023 7:00 AM CDT Appointment Department of Laboratory Medicine and Pathology, [facility], in [place], [place] [address] [place] [phone] Eric Renner M.D. [address] [place] [phone] 11/30/2023 9:00 AM CDT Office Visit Division of Hematology in [place], [place] [address] [place] [phone] Aníbal Reece APRN, C.N.P., M.S.N. [address] [place] [phone] 11/30/2023 12:15 PM CDT Infusion Department of Oncology in [place], [place] [address] [place] [phone] Eric Renner M.D. [address] [place] [phone] 12/20/2023 7:45 AM ROUGH ROUNDER MACHINE Clinical Communication Virtual Review in [place], [place] 200 [place] [address] 12/21/2023 7:00 AM ROUGH ROUNDER MACHINE Appointment Department of Laboratory Medicine and Pathology, [facility], in [place], [place] [address] [place] [phone] Eric Renner M.D. [address] [place] [phone] 12/21/2023 9:00 AM ROUGH ROUNDER MACHINE Office Visit Division of Hematology in [place], [place] [address] [place] [phone] Zulma Hickey APRN, C.NJacquelinP., M.S.N. [address] [place] [phone] 12/21/2023 10:00 AM ROUGH ROUNDER MACHINE Infusion Department of Oncology in [place], [place] [address] [place] [phone] Eric Renner M.D. [address] [place] [phone] 01/11/2024 7:00 AM ROUGH ROUNDER MACHINE Appointment Department of Laboratory Medicine and Pathology, [facility], in [place], [place] [address] [place] [address] Eric Renner M.D. [address] [place] [phone] 01/11/2024 9:00 AM ROUGH ROUNDER MACHINE Office Visit Division of Hematology in [place], [place] [address] [place] [address] Susu Cameron M.D. [address] [place] [phone] 01/11/2024 10:15 AM ROUGH ROUNDER MACHINE Infusion Department of Oncology in [place], [place] [address] [place] [address] Eric Renner M.D. [address] [place] [phone] 01/14/2024 9:15 AM ROUGH ROUNDER MACHINE Diagnostic Department of Otorhinolaryngology in [place], [place] [address] [place] [address] Eric Renner M.D. [address] [place] [phone] Wendy Moon Au.D., C.C.C.-A [address] [place] [phone] 01/14/2024 1:00 PM ROUGH ROUNDER MACHINE Diagnostic Department of Otorhinolaryngology in [place], [place] [address] [place] [address] Eric Renner M.D. [address] [place] [phone] Osiel Middleton Au.D. [address] [place] [phone] 01/14/2024 4:00 PM ROUGH ROUNDER MACHINE Clinical Support Department of Otorhinolaryngology in [place], [place] [address] [place] [phone] Eric Renner M.D. [address] [place] [phone] Taj Nicolas, P.TJacquelin [address] [place] [phone] documented as of this encounter Visit Diagnoses Not on filedocumented in this encounter Additional Health Concerns Infection Onset Date Last Indicated Resolved Time Protective Environment 09/19/2023 09/19/2023 documented as of this encounter Care Teams Industrial Economics Teacher Relationship Specialty Start Date End Date Elsewhere, Pcp PCP - General Internal Medicine 08/21/23 documented as of this encounter
--- OUTSIDE RECORDS SUMMARY | 2023-11-20 19:25 | XMS_ITS | Encounter Summary ---
Author Organization [facility] Address [address] [place] [address] Care Team Providers Care Coil Wrapper Name Role Phone Elsewhere, Pcp Primary Care Provider Unavailabl e Encounter Details Date Type Department Care Team (Late st Contact Info) Description 09/12/2023 Orders Only Division of Hematology in [place], [place] [address] [place] [address] Eric Renner M.D. [address] [place] [address] Social History Tobacco Use Types Packs/Day Years Used Date Smoking Tobacco: Every Day Cigarettes 1.5 81.8 Started: 02/12/1982 Smokeless Tobacco: Never Alcohol Use Standard Drinks/Week Comments Not Currently 0 (1 standard drink = 0.6 oz pur e alcohol) rarely [facility] Utilities Answer Date Recorded In the past 12 months has e [employer], gas, oil, or water PPI threatened to shut off services in your [...] today? I have a [facility] place to live 08/15/2023 Sex and [...] CDT Office Visit Department of Otorhinolaryngology in [place], [place] [address] [place] [phone] Kendra Garcia M.D. [address] [place] [phone] 11/29/2023 7:45 AM CDT Clinical Communication Virtual Review in [place], [place] 200 [place] [address] 11/30/2023 7:00 AM CDT Appointment Department of Laboratory Medicine and Pathology, [facility], in [place], [place] [address] [place] [phone] Eric Renner M.D. [address] [place] [phone] 11/30/2023 9:00 AM CDT Office Visit Division of Hematology in [place], [place] [address] [place] [phone] Aníbal Reece APRN, C.N.P., M.S.N. [address] [place] [phone] 11/30/2023 12:15 PM CDT Infusion Department of Oncology in [place], [place] [address] [place] [phone] Eric Renner M.D. [address] [place] [phone] 12/20/2023 7:45 AM FACILITIES MAINTENANCE ENGINEER Clinical Communication Virtual Review in [place], [place] 200 [place] [address] 12/21/2023 7:00 AM FACILITIES MAINTENANCE ENGINEER Appointment Department of Laboratory Medicine and Pathology, [facility] in [place], [place] [address] [place] [phone] Eric Renner M.D. [address] [place] [phone] 12/21/2023 9:00 AM FACILITIES MAINTENANCE ENGINEER Office Visit Division of Hematology in [place], [place] [address] [place] [phone] Zulma Hickey APRN, C.N.P., M.S.N. [address] [place] [phone] 12/21/2023 10:00 AM FACILITIES MAINTENANCE ENGINEER Infusion Department of Oncology in [place], [place] [address] [place] [phone] Eric Renner M.D. [address] [place] [phone] 01/11/2024 7:00 AM FACILITIES MAINTENANCE ENGINEER Appointment Department of Laboratory Medicine and Pathology, [facility], in [place], [place] [address] [place] [address] Eric Renner M.D. [address] [place] [phone] 01/11/2024 9:00 AM FACILITIES MAINTENANCE ENGINEER Office Visit Division of Hematology in [place], [place] [address] [place] [address] Susu Cameron M.D. [address] [place] [phone] 01/11/2024 10:15 AM FACILITIES MAINTENANCE ENGINEER Infusion Department of Oncology in [place], [place] [address] [place] [address] Eric Renner M.D. [address] [place] [phone] 01/14/2024 9:15 AM FACILITIES MAINTENANCE ENGINEER Diagnostic Department of Otorhinolaryngology in [place], [place] [address] [place] [address] Eric Renner M.D. [address] [place] [phone] Wendy Moon Au.D., C.C.C.-A [address] [place] [phone] 01/14/2024 1:00 PM FACILITIES MAINTENANCE ENGINEER Diagnostic Department of Otorhinolaryngology in [place], [place] [address] [place] [address] Eric Renner M.D. [address] [place] [phone] Osiel Middleton Au.D. [address] [place] [phone] 01/14/2024 4:00 PM FACILITIES MAINTENANCE ENGINEER Clinical Support Department of Otorhinolaryngology in [place], [place] [address] [place] [phone] Eric Renner M.D. [address] [place] [phone] Taj Nicolas, PJacquelinTJacquelin [address] [place] [phone] documented as of this encounter Visit Diagnoses Not on filedocumented in this encounter Care Teams Coil Wrapper Relationship Specialty Start Date End Date Elsewhere, Pcp PCP - General Internal Medicine 08/21/23 documented as of this encounter
--- OUTSIDE RECORDS SUMMARY | 2023-11-20 19:25 | XMS_ITS | Encounter Summary ---
Author Organization [facility] Address [address] [place] [address] Care Team Providers Care Mutuel Machine Operator Name Role Phone Elsewhere, Pcp Primary Care Provider Unavailabl e Encounter Details Date Type Department Care Team (Latest Contact Info) Description 09/11/2023 2:30 PM CDT - 09/11/2023 2:33 PM CDT Hospital Encounter Department of Laboratory Medicine and Pathology, [facility] in [place], [place] [address] [place] [address] Eric Renner M.D. [address] [place] [address] Diffuse Large B Cell Lymphoma Unspecified Site (HCC) Discharge Disposition: Home or Self Care Social History Tobacco Use Types Packs/Day Years Used Date Smoking Tobacco: Every Day Cigarettes 1.5 81.8 Started: 02/12/1982 Smokeless Tobacco: Never Alcohol Use Standard Drinks/Week Comments Not Currently 0 (1 standard drink = 0.6 oz pur e alcohol) rarely [facility] Utilities Answer Date Recorded In [...] your living situation today? I have a [facility] place to live 08/15/2023 Sex and [...] HOURS NEEDED FOR WHEEZING 1ST CHOICE 06/05/2022 cyclobenzaprine (FLEXERIL) 10 mg tabletIndications:Scia corry Left [...] CDT Office Visit Department of Otorhinolaryngology in [place], [place] [address] [place] [phone] Kendra Garcia M.D. [address] [place] [phone] 11/29/2023 7:45 AM CDT Clinical Communication Virtual Review in [place], [place] 200 [place] [address] 11/30/2023 7:00 AM CDT Appointment Department of Laboratory Medicine and Pathology, [facility] in [place], [place] [address] [place] [phone] Eric Renner M.D. [address] [place] [phone] 11/30/2023 9:00 AM CDT Office Visit Division of Hematology in [place], [place] [address] [place] [phone] Aníbal Reece, FAVIOLA, C.N.P., M.S.N. [address] [place] [phone] 11/30/2023 12:15 PM CDT Infusion Department of Oncology in [place], [place] [address] [place] [phone] Eric Renner M.D. [address] [place] [phone] 12/20/2023 7:45 AM SMOKING PIPE REPAIRER Clinical Communication Virtual Review in [place], [place] 200 [place] [phone] 12/21/2023 7:00 AM SMOKING PIPE REPAIRER Appointment Department of Laboratory Medicine and Pathology, [facility], in [place], [place] [address] [place] [phone] Eric eRnner M.D. [address] [place] [phone] 12/21/2023 9:00 AM SMOKING PIPE REPAIRER Office Visit Division of Hematology in [place], [place] [address] [place] [address] Zulma Hickey APRN, C.N.P., M.S.N. [address] [place] [phone] 12/21/2023 10:00 AM SMOKING PIPE REPAIRER Infusion Department of Oncology in [place], [place] [address] [place] [phone] Eric Renner M.D. [address] [place] [phone] 01/11/2024 7:00 AM SMOKING PIPE REPAIRER Appointment Department of Laboratory Medicine and Pathology, [facility] in [place], [place] [address] [place] [phone] Eric Renner M.D. [address] [place] [phone] 01/11/2024 9:00 AM SMOKING PIPE REPAIRER Office Visit Division of Hematology in [place], [place] [address] [place] [address] Susu Cameron M.D. [address] [place] [phone] 01/11/2024 10:15 AM SMOKING PIPE REPAIRER Infusion Department of Oncology in [place], [place] [address] [place] [phone] Eric Renner M.D. [address] [place] [phone] 01/14/2024 9:15 AM SMOKING PIPE REPAIRER Diagnostic Department of Otorhinolaryngology in [place], [place] [address] [place] [phone] Eric Renner M.D. [address] [place] [phone] Wendy Moon Au.D., CJacquelinCJacquelinCJacquelin-Grecia [address] [place] [phone] 01/14/2024 1:00 PM SMOKING PIPE REPAIRER Diagnostic Department of Otorhinolaryngology in [place], [place] [address] [place] [phone] Eric Renner M.D. [address] [place] [phone] Osiel Middleton Au.D. [address] [place] [phone] 01/14/2024 4:00 PM SMOKING PIPE REPAIRER Clinical Support Department of Otorhinolaryngology in [place], [place] [address] [place] [phone] Eric Renner M.D. [address] [place] [phone] Taj Nicolas, P.TJacquelin [address] [place] [phone] documented as of this encounter Procedures Procedure Name Priority Date/Time Associated Diagnosis Comments LEUKEMIA/LYMPHOMA PHENOTYPE, B Routine 09/11/2023 2:56 PM CDT Diffuse Large B Cell Lymphoma Unspecified Site (HCC) GLUCOSE, FASTING, S/P Routine 09/11/2023 2:56 PM CDT Diffuse Large B Cell Lymphoma Unspecified Site (HCC) QUANTITATIVE M-PROTEIN STUDY, S Routine 09/11/2023 2:55 PM CDT Diffuse Large B Cell Lymphoma Unspecified Site (HCC) HBS ANTIGEN SCRN, S Routine 09/11/2023 2 :55 PM CDT Diffuse Large B Cell Lymphoma [...] Unspecified Site (HCC) ALKALINE PHOSPHATASE, S/P Routine 09/11/2023 2:55 PM CDT Diffuse Large B Cell Lymphoma Unspecified Site (HCC) LACTATE DEHYDROGENASE (LD), S Routine 09/11/2023 2:55 PM CDT Diffuse Large B Cell Lymphoma Unspecified Site (HCC) CREATININE WITH EGFR, S/P Routine 09/11/2023 2:55 PM CDT Diffuse Large B Cell Lymphoma Unspecified Site (HCC) CALCIUM, TOT, S/P Routine 09/11/2023 2:5 5 PM CDT Diffuse Large B Cell Lymphoma Unspecified Site (HCC) BILIRUBIN, TOT, S/P Routine 09/11/2023 2 :55 PM CDT Diffuse Large B Cell Lymphoma Unspecified Site (HCC) QFOS-1-[id number] (BETA-2-M), S Routine 09/11/2023 2:55 PM CDT Diffuse Large B Cell Lymphoma Unspecified Site (HCC) documented in this encounter Results * Leukemia/Lymphoma Immunophenotyping by Flow Cytometry, Blood [...] 12:36 PM CDT DTL Microscopic Description A Sbvdge-Qmbfzr-yzygdv d slide prepared from the flow cytometry specimen is examined. ??No morphologic features of acute leukemia or lymphoma are identified. 09/12/2023 12:36 PM CDT DTL Comment: ----ADDITIONAL INFORMATION---- This test was developed using an analyte specific reagent. Its performance characteristics were determined by [facility] in a manner consistent with CLIA requirements. This test has not been cleared or approved by the U.S. Food and Drug Administration. Blood (Blood, Venous) 09/11/2023 2:56 PM CDT 09/11/2023 3:20 PM CDT Eric Monzon M.D. LAB SHILO IC TESTING Performing Organization Address [facility]/ZIP Co de Phone Number [facility] [place] [address] [place] [address], [facility] [address] [address] * (ABNORMAL) Glucose, Fasting (09/11/2023 2:56 PM CDT) Glucose, P 103(H) 70 - 100 mg/dL 09/11/2023 3:40 PM CDT DTL Last Intake 8 hr 09/11/2023 3:08 PM CDT DTL Blood (Blood, Venous) 09/11/2023 2:56 PM CDT 09/11/2023 3:08 PM CDT Eric Monzon M.D. LAB BLOOD NON ADD-ON Performing Organization Address City/[facility]/ZIP Co de Phone Number [facility] [place] [address] [place] [address], [facility] [address] [place] [address] * (ABNORMAL) Quantitative Lymphocyte Subsets: T, B, and Natural Killer (NK) (09/11/2023 2:55 PM CDT) CD45 Total Lymph Count 2.40 0.82 - [...] reagent. Its performance characteristics were determined by [facility] in a manner consistent with CLIA requirements. This test has not been cleared or approved by the U.S. Food and Drug Administration. Blood (Blood, Venous) 09/11/2023 2:55 PM CDT 09/11/2023 6:38 PM CDT Eric Monzon M.D. LAB BLOOD ADD-ON [facility] [address] [place] [address] [facility] [address] [place] [address] [place] [address] * (ABNORMAL) Quantitative M-protein Study (09/11/2023 2:55 [...] developed and its performance characteristics determined by [facility] in a manner consistent with CLIA requirements. This test has not been cleared or approved by the U.S. Food and Drug Administration. Blood (Blood, Venous) 09/11/2023 2:55 PM CDT 09/12/2023 6:17 AM CDT Narrative [facility] - 09/12/2023 5:43 PM CDT Specimen Information: Specimen ID: [id number] Specimen Type: Blood Specimen Collection Start Date: 09/11/2023 ??2:55 PM Specimen Received Date: 09/12/2023 ??6:17 AM Specimen ID: [id number] Specimen Type: Blood Specimen Collection Start Date: 09/11/2023 ??2:55 PM Specimen Received Date: 09/12/2023 ??6:09 AM Eric Monzon M.D. LAB BLOOD ADD-ON [facility] [address] [place] [address] [facility] [address] [place] [address] [facility] [address] [place] [address] [place] [address] * Uric Acid (09/11/2023 2:55 PM CDT) Uric Acid, S 5.5 2.7 - 6.1 mg/dL 09/11/2023 3:44 PM CDT DTL Blood (Blood, Venous) 09/11/2023 2:55 PM CDT 09/11/2023 3:26 PM CDT Eric Monzon M.D. LAB BLOOD ADD-ON [facility] [place] [address] [place], [place] [phone] [place] [address] 200 [place] [address] * Potassium (09/11/2023 2:55 PM CDT) Pathologist [facility] Potassium, S 5.1 3.6 - 5.2 mmol/L 09/11/2023 3:44 PM CDT DTL Blood (Blood, Venous) 09/11/2023 2:55 PM CDT 09/11/2023 3:26 PM CDT Eric Monzon M.D. LAB BLOOD ADD-ON [facility] [place] [address] [place], [place] [phone] [place] [address] 200 [place] [address] * (ABNORMAL) LD (Lactate Dehydrogenase) (09/11/2023 2:55 PM CDT) Lactate Dehydrogenase (LD), S 320(H) 122 - 222 U/L 09/11/2023 3:44 PM CDT DTL Blood (Blood, Venous) 09/11/2023 2:55 PM CDT 09/11/2023 3:26 PM CDT Narrative Authorizing Provider Result Aura Monzon M.D. LAB BLOOD NON ADD-ON [facility] [place] [address] [place] [address], [place] DTL [facility] [address] [place] [address] * HIV-1/-2 Ag and Ab Screen, Plasma (09/11/2023 2:55 PM CDT) Pathologist [facility] HIV-1/-2 Ag and Ab Screen, P Negative Negative 09/11/2023 7:28 PM CDT [facility] Comment: Negative result does not rule out HIV infection. If exposure to HIV infection occurred <14 days ago, contact the laboratory to request addition of HIV-1/HIV-2 RNA detection, Plasma (HIP12). Blood (Blood, Venous) 09/11/2023 2:55 PM CDT 09/11/2023 6:41 PM CDT Narrative Authorizing Provider Result Aura Monzon M.D. LAB MICRO BIOLOGY - BLOOD ORDERABLES Performing Organization Address City/[facility]/ZIP Co de Phone Number [facility] [address] [place] [address] [facility] [address] [place] [address] * HBs Antigen Scrn, Serum (09/11/2023 2:55 PM CDT) Pathologist [facility] HBs Antigen Scrn, S Negative Negative 09/11/2023 7:33 PM CDT [facility] Blood (Blood, Venous) 09/11/2023 2:55 PM CDT 09/11/2023 6:41 PM CDT Narrative Authorizing Provider Result Aura Monzon M.D. LAB MICRO BIOLOGY - BLOOD ORDERABLES [facility] [address] [place] [address] [facility] [address] [place] [address] * HCV Ab w/Reflex to HCV PCR, Serum (09/11/2023 2:55 PM CDT) Pathologist [facility] HCV Ab, S Negative Negative 09/11/2023 7:30 PM CDT [facility] Comment: Consumption of high-dose biotin supplement within 12 hours of blood collection for this test can cause false-negative results. Blood (Blood, Venous) 09/11/2023 2:55 PM CDT 09/11/2023 6:41 PM CDT Eric Monzon M.D. LAB MICRO BIOLOGY - BLOOD ORDERABLES [facility] [address] [place] [address] [facility] [address] [place] [address] * HBc Total Ab Scrn, Serum (09/11/2023 2:55 PM CDT) [facility] HBc Total Ab Scrn, S Negative Negative 09/11/2023 7:33 PM CDT [facility] Blood (Blood, Venous) 09/11/2023 2:55 PM CDT 09/11/2023 6:41 PM CDT Eric Monzon M.D. LAB MICRO BIOLOGY - BLOOD ORDERABLES [facility] [address] [place] [address] [facility] [address] [place] [address] * Creatinine with Estimated GFR (09/11/2023 2:55 PM CDT) [facility] Creatinine 0.95 0.59 - 1.04 mg/dL 09/11/2023 3:44 PM CDT DTL Estimated GFR (eGFR) 71 >=60 mL/min/BSA 09/11/2023 3:44 PM CDT DTL Comment: Estimated GFR calculated using the 2020 CKD_EPI creatinine equation. Blood (Blood, Venous) 09/11/2023 2:55 PM CDT 09/11/2023 3:26 PM CDT Eric Monzon M.D. LAB BLOOD ADD-ON [facility] [address] [place] [address], [facility] DTL [facility] [address] [place] [address] * CBC with Differential, Blood (09/11/2023 2:55 PM CDT) Hemoglobin 14.4 11.6 - 15.0 g/dL 09/11/2023 3:21 PM CDT DTL Hematocrit 43.4 35.5 - 44.9 % 09/11/2023 3:21 PM CDT DTL Erythrocytes 4.51 3.92 - 5.13 x10(12)/L 09/11/2023 3:21 PM CDT DTL MCV 96.2 78.2 - 97.9 fL 09/11/2023 3:21 PM CDT DTL RBC Distrib Width 12.6 12.2 - 16.1 % 09/11/2023 3:21 PM CDT DTL Platelet Count 239 157 - 371 x10(9)/L 09/11/2023 3:21 PM CDT DTL Leukocytes 6.7 3.4 - 9.6 x10(9)/L 09/11/2023 3:21 PM CDT DTL Neutrophils 3.80 1.56 - 6.45 x10(9)/L 09/11/2023 7:02 PM CDT [facility] Comment:Rechecked Lymphocytes 2.28 0.95 - 3.07 x10(9)/L 09/11/2023 7:03 PM CDT DTL Monocytes 0.47 0.26 - 0.81 x10(9)/L 09/11/2023 7:03 PM CDT DTL Eosinophils 0.15 0.03 - 0.48 x10(9)/L 09/11/2023 7:03 PM CDT DTL Basophils 0.03 0.01 - 0.08 x10(9)/L 09/11/2023 7:03 PM CDT DTL Blood (Blood, Venous) 09/11/2023 2:55 PM CDT 09/11/2023 3:12 PM CDT Narrative Authorizing Provider Result Aura Monzon M.D. LAB BLOOD ADD-ON [facility] [place] [address] [place] [address], [facility] [address] [place] [address] [facility] [address] [place] [address] * (ABNORMAL) Calcium, Total (09/11/2023 2:55 PM CDT) Calcium, Total, S 10.1(H) 8.6 - 10.0 mg/dL 09/11/2023 3:44 PM CDT DTL Blood (Blood, Venous) 09/11/2023 2:55 PM CDT 09/11/2023 3:26 PM CDT Narrative Authorizing Provider Result Aura Monzon M.D. LAB BLOOD ADD-ON Performing Organization Address City/[facility]/ZIP Co de Phone Number [facility] [place] [address] [place] [address], [facility] [address] [place] [address] * Bilirubin, Total (09/11/2023 2:55 PM CDT) Bilirubin, Total, S 0.4 0.0 - 1.2 mg/dL 09/11/2023 3:44 PM CDT DTL Blood (Blood, Venous) 09/11/2023 2:55 PM CDT 09/11/2023 3:26 PM CDT Narrative Authorizing Provider Result Aura Monzon M.D. LAB BLOOD ADD-ON [facility] [place] [address] [place] [address], [facility] [address] [place] [address] * (ABNORMAL) Rneu-5-Jmffvqznghsxz (Beta-2-M) (09/11/2023 2:55 PM CDT) Ozgc-5-Jquwkoo obulin, S 2.97(H) 1.21 - 2.70 mcg/mL 09/12/2023 9:00 AM CDT [facility] Blood (Blood, Venous) 09/11/2023 2:55 PM CDT 09/12/2023 6:17 AM CDT Eric Monzon M.D. LAB BLOOD ADD-ON [facility] [address] [place] [address] [facility] [address] [place] [address] * AST (Aspartate Aminotransferase) (09/11/2023 2:55 PM CDT) Pathologist [facility] Aspartate Aminotransferase (AST), S 24 8 - 43 U/L 09/11/2023 3:44 PM CDT DT Blood (Blood, Venous) 09/11/2023 2:55 PM CDT 09/11/2023 3:26 PM CDT Eric Monzon M.D. LAB BLOOD ADD-ON [facility] [place] [address] [place] [address], [facility] [address] [place] [address] * (ABNORMAL) Alkaline Phosphatase (09/11/2023 2:55 PM CDT) Alkaline Phosphatase, S 141(H) 35 - 104 U/L 09/11/2023 3:44 PM CDT DT Blood (Blood, Venous) 09/11/2023 2:55 PM CDT 09/11/2023 3:26 PM CDT Eric Monzon M.D. LAB BLOOD ADD-ON [facility] [address] [place] [address], [place] DTL [facility] [address] [place] [address] * 25-Hydroxyvitamin D2 and D3 (09/11/2023 2:55 PM CDT) Pathologist [facility] 25-Hydroxy D2 <4.0 ng/mL 09/12/2023 4:44 PM CDT [facility] 25-Hydroxy D3 29 ng/mL 09/12/2023 4:44 PM CDT [facility] 25-Hydroxy D Total 29 ng/mL 2023 4:44 PM CDT [facility] Comment: ----REFERENCE VALUE---- 25-HYDROXY D TOTAL (D2+D3) Optimum levels in the healthy population are 20-50. ----ADDITIONAL INFORMATION---- This test was developed and its performance characteristics determined by [facility] in a manner consistent with CLIA requirements. This test has not been cleared or approved by the U.S. Food and Drug Administration. Blood (Blood, Venous) 09/11/2023 2:55 PM CDT 09/12/2023 7:05 AM CDT Eric Monzon M.D. LAB BLOOD ADD-ON [facility] [address] [place] [address] [facility] [address] [place] [address] [place] [address] documented in this encounter Visit Diagnoses Diagnosis Diffuse Large B Cell Lymphoma Unspecified Site (HCC) documented in this encounter Care Teams Mutuel Machine Operator Relationship Specialty Start Date End Date Elsewhere, Pcp PCP - General Internal Medicine 08/21/23 documented as of this encounter
--- OUTSIDE RECORDS SUMMARY | 2023-11-20 19:25 | XMS_ITS | Encounter Summary ---
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 [address] [place] [phone] Referral ID Status Reason Start Date Expiration Date Visits Re quested Visits Authorized [id number] 1 1 Encounter Details Date Type Department Care Team (Late st Contact Info) Description 08/31/2023 2:29 PM CDT Anesthesia Event RST ROMB MAIN OR [address] [place] [phone] Sugey Underwood M.D., Ph.D. [address] [place] [phone] Dereje Hill, CHIEF ENGINEER [employer]LLING [employer]OVERY, ALYSSA, MNA [address] [place] [phone] Anesthesia Record Procedure Summary Procedure Name Responsible Anesthesiologist Anesthesia Start Time Anesthesia Stop Time MICROSCOPIC DIRECT LARYNGOSCOPY WITH CARBON DIOXIDE LASER, biopsy, (Bilateral) Sugey Underwood M.D., Ph.D. 08/31/23 1429 08/31/23 1631 Events Date Time Event Comment 08/31/2023 1249 1429 An Start Machine/Equipme nt Checked Infection Precautions Followed Procedure/Site Verified NPO Status Verified Supine Standard ASA Monitors Applied 1440 An Induction 1444 An Intubation 1451 Turnover to Proceduralist 1458 Proc Start 1601 Proc Fin 1609 Turnover to ANE Staff 1610 Airway Removal Criteria Met 1610 Extubation/Airway Removed 1615 an stop data 1631 An End I completed my handoff to the receiving staff during which we 1. Identified the patient 2. Identified the responsible provider 3. Reviewed the pertinent medical history 4. Discussed the surgical course 5. Reviewed intra-op anesthesia management and issues during anesthesia 6. Set expectations for post-procedure period 7. Allowed opportunity for questions and acknowledgement of understanding. Meds Name Total fentanyl injection 50 mcg/mL 50 mcg lidocaine 2% (mg) injection 100 mg rocuronium 10 mg/mL injection 90 mg phenylephrine 100 mcg/mL injection 200 m cg ondansetron 4 mg/2 mL injection 4 mg propofol 10 mg/mL infusion 669.67 mg propofol 10 mg/mL injection 65 mg ketamine 10 mg/mL injection 65 mg remifentaniL 20 mcg/mL in NaCl 0.9% 100 mL infusion (Ultiva) 1.36 mg ceFAZolin injection 2,000 mg (Ancef) 2 g dexAMETHasone (Decadron) injection 4 mg/ mL 8 mg haloperidol 5 mg/mL injection 1 mg Lactated Ringers Free Drip 1,000 mL * Agents No agents on file. * Blood No blood administrations on file. Lines, Drains, and Airways Type Details Placement Removal Wound 08/31/23; 1523; N; Incision; Mouth; CO2 laser 08/31/23 1523 by Lizz Lopez RGavin Peripheral IV Placement Date: 08/12 11/05; Placement Time: 1220; Catheter Size: 20 G; Orientation: Left, Posterior; Location: Hand; Site Prep: Chlorhexidine (Preferred); Technique: Anatomical landmarks; Insertion Attempts: 1; Removal Date: 08/31/23; Removal Time: 17008/31/23 1220 by Nicolas Cameron 08/31/23 1701 by Phillip Costa RJacquelinNJacquelin ETT Placement Date: 08/12 11/05; Placement Time: 1444 (created via procedure documentation); Mask Ventilation: Easy mask; Technique: Direct laryngoscopy, intubation; Type: Laser; Single Lumen Tube Size: 5 mm; Cuffed: Yes; Blade Size: El 2; Location: Oral; Grade View: Grade 2A; Insertion Attempts: 1; Placement Verification: Bilateral breath sounds, Positive ETCO2, Symmetrical chest wall movement; Removal Date: 08/31/23; Removal Time: 1610 08/31/23 1444 by Melanie Jones APRN, ALYSSA, DNAAd 08/31/23 1610 by Melanie Jones APRN, CRNA, DNAP documented in this encounter Social History Tobacco Use Types Packs/Day Years Used Date Smoking Tobacco: Every Day Cigarettes 1.5 81.8 Started: 02/12/1982 Smokeless Tobacco: Never Alcohol Use Standard Drinks/Week Comments Not Currently 0 (1 standard drink = 0.6 oz pur e alcohol) rarely [facility] [employer] Answer Date Recorded In the past 12 months has [employer], gas, oil, or water [employer] threatened to shut off services in your [...] your living situation today? I have a [facility] place to live 08/15/2023 Sex and Gender Information Value Date Recorded Sex Assigned at Female 08/15/2023 7:51 AM CDT Gender Identity Female 08/15/2023 7:51 AM CDT Sexual Orientation Straight 08/15/2023 7: 51 AM CDT documented as of this encounter OR Notes * Anesthesia Postprocedure Evaluation - Sugey Underwood M.D., Ph.D. 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 Responsible Provider: Sugey Underwood M.D., Ph.D. Anesthesia Type: general ASA Status: 2 Anesthesia Type: general Last vitals Vitals Value Taken Time BP 118/73 08/31/23 1631 Temp 36.6 ??C 08/31/23 1625 Pulse 82 08/31/23 1640 Resp 18 08/31/23 1640 SpO2 94 % 08/31/23 1640 Please reference Vitals flowsheet for most recent vital signs. Anesthesia Post Evaluation Patient Disposition: dismissal Cardiovascular status: hemodynamics (HR & BP) acceptable Respiratory status: patent airway with spontaneous effort Temperature: normothermic Oxygen requirements: room air Level of consciousness: awake Pain score: pain adequately controlled and/or at baseline Post Op nausea/vomiting: none Hydration status: euvolemic * Anesthesia Procedure Notes - Melanie Jones APRN, FIRE CONTROL OFFICER, DNAP - 08/31/2023 2:50 PM CDTAssociated Order(s): Airway Airway Date/Time: 08/31/2023 2:44 PM Performed by: Melanie Jones APRN, CRNA, DNAP Authorized by: Buddy Morton M.D., M.S. Patient location during procedure: OR / Procedure Area PROCEDURE DETAILS: Mask difficulty assessment: easy mask Final airway type: direct laryngoscopy, intubation Laryngeal Manipulation: no Final airway difficulty of direct laryngoscopy (DL): 0-easy Final best view of glottic structures - Cormack/Lehane Score: grade 2A ETT location: oral Blade type: El 2 Tube size: 5 ETT distance at teeth/gum: 20 Oral tube type: laser Cuffed: yes Leak Test Performed: no Number of attempt to successful placement: 1 Airway confirmation: bilateral breath sounds, positive ETCO2 and bilateral chest rise Other previous techniques attempted: none PRE PROCEDURE DETAILS: Pre evaluation for airway management: procedure Urgency: elective Preop assessment of probable difficulty: no difficulty anticipated Preoxygenation: bag valve mask SEDATION / ANESTHESIA Anesthesia method: anesthesia POST PROCEDURE DETAILS: Procedure outcome: successful Notable Events: no complications * Anesthesia Preprocedure Evaluation - Buddy Morton M.D., M.S. - 08/31/2023 12:01 PM CDT Preprocedure Anesthesia & H&P Assessment Procedure Summary Date/Time: 08/31/23 1238 Procedure: MICROSCOPIC DIRECT LARYNGOSCOPY WITH CARBON DIOXIDE LASER, proceed as indicated. 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 Location: [address] / [facility] in [place], [place] Providers: Kendra Garcia M.D. Pertinent components of the patient's history including current problem list, medical history, surgical history, family history, social history, medications and allergies were reviewed. Present illness and pre-op diagnosis were confirmed. The planned surgery / procedure was verified with the patient / legal guardian. The patient's general health condition remains unchanged RELEVANT COMORBID CONDITIONS Respiratory (+) Polyp Of Vocal Cord And Larynx OBJECTIVE PHYSICAL EXAMINATION Airway (HEENT) Mallampati: III TM Distance: >3 FB Neck ROM: Full Mouth Opening: >3 cm Cardiovascular Rhythm: Regular Rate: Normal Functional Capacity: >4 METS Pulmonary Pulmonary Assessment: Non labored General / Constitutional Constitutional Assessment: Obese General State of Health:: healthy appearing and calm Neurological Neurologic Assessment: alert and alert and oriented x 3 Dental Dental Assessment: dentition intact ASSESSMENT / PLAN ANESTHESIA PLAN ASA: 2 Anesthesia Plan: general Patient seen and allergies reviewed, anesthesia plan and risks discussed directly with patient /legal guardian or through an payroll processor. The use of blood products not discussed Approval to Proceed: approved for anesthesia documented in this encounter Plan of Treatment Upcoming Encounters Date Type Department Care Team (Latest Contact Info) Description 11/28/2023 2:15 PM CDT Office Visit Department of Otorhinolaryngology in [address] [phone] Kendra Garcia M.D. [address] [place] [phone] 11/29/2023 7:45 AM CDT Clinical Communication Virtual Review in [place], [place] [address] [place] [phone] 11/30/2023 7:00 AM CDT Appointment Department of Laboratory Medicine and Pathology, [facility], in [place], [place] [address] [place] [phone] Eric Renner M.D. [address] [place] [phone] 11/30/2023 9:00 AM CDT Office Visit Division of Hematology in [place], [place] [address] [place] [phone] Aníbal Reece APRN, C.NMaggi., M.S.N. [address] [place] [phone] 11/30/2023 12:15 PM CDT Infusion Department of Oncology in [place], [place] [address] [place] [phone] Eric Renner M.D. [address] [place] [phone] 12/20/2023 7:45 AM COMBINE MECHANIC Clinical Communication Virtual Review in [place], [place] [address] [place] [phone] 12/21/2023 7:00 AM COMBINE MECHANIC Appointment Department of Laboratory Medicine and Pathology, [facility] in [place], [place] [address] [place] [phone] Eric Renner M.D. [address] [place] [phone] 12/21/2023 9:00 AM COMBINE MECHANIC Office Visit Division of Hematology in [place], [place] [address] [place] [phone] Zulma Hickey APRN, C.NWalter, M.S.N. [address] [place] [phone] 12/21/2023 10:00 AM COMBINE MECHANIC Infusion Department of Oncology in [place], [place] [address] [place] [phone] Eric Renner M.D. [address] [place] [phone] 01/11/2024 7:00 AM COMBINE MECHANIC Appointment Department of Laboratory Medicine and Pathology, [facility], in [place], [place] [address] [place] [phone] Eric Renner M.D. [address] [place] [phone] 01/11/2024 9:00 AM COMBINE MECHANIC Office Visit Division of Hematology in [place], [place] [address] [place] [phone] Susu Cameron M.D. [address] [place] [phone] 01/11/2024 10:15 AM COMBINE MECHANIC Infusion Department of Oncology in [place], [place] [address] [place] [phone] Eric Renner M.D. [address] [place] [phone] 01/14/2024 9:15 AM COMBINE MECHANIC Diagnostic Department of Otorhinolaryngology in [place], [place] [address] [place] [phone] Eric Renner M.D. [address] [place] [phone] Wendy Moon Au.D., C.C.CJacquelin-A [address] [place] [phone] 01/14/2024 1:00 PM COMBINE MECHANIC Diagnostic Department of Otorhinolaryngology in [place], [place] [address] [place] [phone] Eric Renner M.D. [address] [place] [phone] Osiel Middleton Au.D. [address] [place] [phone] 01/14/2024 4:00 PM COMBINE MECHANIC Clinical Support Department of Otorhinolaryngology in [place], [place] [address] [place] [phone] Eric Renner M.D. [address] [place] [phone] Taj Nicolas PGirish [address] [place] [address] [phone] documented as of this encounter Procedures Procedure Name Priority Date/Time Associated Diagnosis Comments LDA ANE ENDOTRACHEAL AIRWAY Routine 08/31/2023 2:44 PM CDT documented in this encounter Results * LDA ANE ENDOTRACHEAL AIRWAY (08/31/2023 2:44 PM CDT) Narrative Melanie Jones APRN, CRNA DNAP - 08/31/2023 2:44 PM CDT Melanie Jones APRN, CRNA DNAAd ? 08/31/2023 ??2:51 PM Airway Date/Time: 08/31/2023 2:44 PM Performed by: Melanie Jones APRN, CRNA DNAP Authorized by: Buddy Morton M.D., M.S. [...] complications Buddy Morton M.D., M.S. ANESTHESIA ORDERABLES documented in this encounter Visit Diagnoses Not on filedocumented in this encounter Administered Medications Inactive Administered Medications - up to 3 most recent administrations Medication Order MAR Action Action Date Dose Rate Site ceFAZolin injection 2,000 mg (Ancef) 2,000 mg (rounded from 2,005 mg = 25 mg/kg ? 80.2 kg), intravenous, Once, On Sun08/31/23 at 1430, For 1 dose, Intra-Op, Administer within 1 hour prior to surgical incision For immediate IV push administration, reconstitute vial per IVAG or package insert instructions. See IVAG for administration guidelines., Drug Monitoring Program: Pharmacist to adjust medication dosing based on indication and drug clearance factors., Indications: Prophylaxis, surgical Given 08/31/2023 2:52 PM CDT 2 g dexAMETHasone injection (Decadron) intravenous, As needed, Starting on Sun08/31/23 at 1452, Anesthesia Intra-op Given 08/31/2023 2:52 PM CDT 8 mg fentaNYL injection (Sublimaze) intravenous, As needed, Starting on Sun08/31/23 at 1436, Anesthesia Intra-op Given 08/31/2023 2:36 PM CDT 50 mcg haloperidol lactate injection (HaldoL) intravenous, As needed, Starting on Sun08/31/23 at 1527, Anesthesia Intra-op Given 08/31/2023 3:27 PM CDT 1 mg ketamine injection (Ketalar) intravenous, As needed, Starting on Sun08/31/23 at 1440, Anesthesia Intra-op Given 08/31/2023 2:40 PM CDT 65 mg Lactated Ringer's intravenous, Continuous Infusion: Per Instructions PRN, Starting on Sun08/31/23 at 1430, Anesthesia Intra-op New Bag 08/31/2023 4:12 PM CDT New Bag 08/31/2023 2:30 PM CDT lidocaine (PF) (cardiac) injection intravenous, As needed, Starting on Sun08/31/23 at 1440, Anesthesia Intra-op Given 08/31/2023 2:40 PM CDT 100 mg ondansetron (PF) injection (Zofran) intravenous, As needed, Starting on Sun08/31/23 at 1550, Anesthesia Intra-op Given 08/31/2023 3:50 PM CDT 4 mg phenylephrine injection intravenous, As needed, Starting on Sun08/31/23 at 1453, Anesthesia Intra-op Given 08/31/2023 2:57 PM CDT 100 mcg Given 08/31/2023 2:53 PM CDT 100 mcg propofol 10 mg/mL infusion (Diprivan) intravenous, Continuous Infusion: Per Instructions PRN, Starting on Sun08/31/23 at 1440, Anesthesia Intra-op Rate/Dose Change 08/31/2023 3:49 PM CDT 75 mcg/kg/min 36.09 mL/hr Rate/Dose Change 08/31/2023 3:04 PM CDT 100 mcg/kg/min 48. 12 mL/hr Rate/Dose Change 08/31/2023 3:01 PM CDT 125 mcg/kg/min 60. 15 mL/hr propofoL injection (Diprivan) intravenous, As needed, Starting on Sun08/31/23 at 1440, Anesthesia Intra-op Given 08/31/2023 2:40 PM CDT 65 mg remifentaniL 20 mcg/mL in NaCl 0.9% 100 mL infusion (Ultiva) intravenous, Continuous Infusion: Per Instructions PRN, Starting on Sun08/31/23 at 1440, Anesthesia Intra-op Rate/Dose Change 08/31/2023 3:01 PM CDT 0.2 mcg/kg/min 48.12 mL/hr Rate/Dose Change 08/31/2023 2:45 PM CDT 0.25 mcg/kg/min 60 .15 mL/hr New Bag 08/31/2023 2:40 PM CDT 0.2 mcg/kg/min 48.12 mL/ hr rocuronium injection (Zemuron) intravenous, As needed, Starting on Sun08/31/23 at 1441, Anesthesia Intra-op Given 08/31/2023 3:45 PM CDT 10 mg Given 08/31/2023 3:27 PM CDT 20 mg Given 08/31/2023 2:57 PM CDT 10 mg documented in this encounter Care Teams Mobile Plant Operators Relationship Specialty Start Date End Date Elsewhere, Pcp PCP - General Internal Medicine 08/21/23 documented as of this encounter
--- OUTSIDE RECORDS SUMMARY | 2023-11-20 19:25 | XMS_ITS | Encounter Summary ---
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 [address] [place] [phone] Referral ID Status Reason Start Date Expiration Date Visits Re quested Visits Authorized [id number] 1 1 Encounter Details Date Type Department Care Team (Late st Contact Info) Description 08/31/2023 12:38 PM CDT - 08/31/2023 2:45 PM CDT Surgery [facility]IN OR [address] [place] [phone] Larry Moore M.D. [address] [place] [phone] MICROSCOPIC DIRECT LARYNGOSCOPY WITH CARBON DIOXIDE LASER, biopsy, Social History Tobacco Use Types Packs/Day Years Used Date Smoking Tobacco: Every Day Cigarettes 1.5 81.8 Started: 02/12/1982 Smokeless Tobacco: Never Alcohol Use Standard Drinks/Week Comments Not Currently 0 (1 standard drink = 0.6 oz pur e alcohol) rarely [facility] Utilities Answer Date Recorded In the [...] your living situation today? I have a [facility] place to live 08/15/2023 Sex and Gender Information Value Date Recorded Sex Assigned at Female 08/15/2023 7:51 AM CDT Gender Identity Female 08/15/2023 7:51 AM CDT Sexual Orientation Straight 08/15/2023 7: 51 AM CDT documented as of this encounter Last Filed Vital Signs Vital Sign Reading Time Taken Comments Blood Pressure 109/74 08/31/2023 8:46 AM CDT Pulse 96 08/31/2023 8:46 AM CDT Temperature 37.3 ??C (99.1 ??F) 08/31/2023 8:46 AM CD T Respiratory Rate 16 08/31/2023 8:46 AM CDT Oxygen Saturation 91% 08/31/2023 8:46 AM CDT Inhaled Oxygen Concentration - - Weight 80.2 kg (176 lb 12.9 oz) 08/31/2023 8:46 AM CDT Height 162.5 cm (5' 3.98) 08/31/2023 8:46 AM CD T Body Mass Index 30.37 08/31/2023 8:46 AM CDT documented in this encounter Medications at Time of Discharge [...] 20 mg by mouth daily. 07/27/2023 10/16/2023 HYDROcodone-acetaminop hen (NORCO) 5-325 mg per tabletIndications:Acut e Pain Take 1 tablet by mouth every 6 (six) hours as needed for severe pain or score 7-10 of 10 for up to 6 doses Indication: Acute Pain. 6 tablet 06/06/2022 09/11/2023 ibuprofen 200 mg capsule Take 3 capsules (600 mg total) by mouth every 6 (six) hours as needed for pain. 08/31/2023 09/11/2023 ibuprofen 800 mg tablet Take 800 mg by mouth 3 (three) times a day as needed for pain. 09/11/2023 oxyCODONE (Roxicodone) 5 mg immediate release tablet Take 5 mg by mouth every 6 (six) hours as needed. 08/15/2023 09/11/2023 oxyCODONE (Roxicodone) 5 mg immediate release tabletIndications:Acut e Pain Take 1 tablet (5 mg total) by mouth every 4 (four) hours as needed for pain Indication: Acute Pain. 5 tablet 08/31/2023 09/11/2023 documented as of this encounter OR Notes * Op Note - Douse, Dontre M, M.D. - 08/31/2023 2:58 PM CDT Pre-op Diagnosis Polyp Of Vocal Cord And Larynx Post-op Diagnosis Polyp Of Vocal Cord And Larynx Fur Tanner A first responder actively participated and was necessary for one or more of the following: opening, exposure and visualization during the case, maintaining hemostasis, wound closure resulting in itssafe and expeditious completion. Findings As expected. Complications None Operative Note Narrative The patient was brought to the operating room and placed in the supine position. Jes[place] protocolwas followed. Informed consent was confirmed in the patient's chart. Patient was transferred over to the operative bed. General endotracheal anesthesia was induced, and the patient was intubated by the Anesthesia Team with a 5.0 laser-safe endotracheal tube without difficulty.The head of the bed was turned 90 degrees. The patient was positioned and draped in the usual fashion for this procedure. A procedure pause was taken to identify patient by name, clinic number, date of , procedure to be performed, weight, antibiotics, allergies, fire risk. Upper and lower dentition were protected with Aquaplast mouth guards. The Dedo laryngoscope was suspended and allowed for good visualization ofthe larynx. Pictures were taken with 0 degree and 70 degree Jj gama telescopes. Wet eyepads were placed, face was protected with wet towels, and a saline-soaked pledget was placed over the endotracheal tube cuff for laser precautions. The CO2 laser was used to perform 2 microflap biopsies of the right true vocal fold. Any residual leukoplakia was carefully ablated with the laser at 1 W defocused. Both the left and right true vocalcords did also have polypoid change consistent with polypoid corditis. I used the CO2 laser on 1 watt defocused again to shrink down the polypoid change taking care to preserve the superficial laminapropria layer bilaterally. Once this was accomplished, pictures were again taken with 0 degree and 70 degree Jj gama telescopes. Bleeding spots were cauterized. Hemostasis was achieved. The laryngoscope, pledget and mouth guards were removed. Counts were correct at the end of the case. Dakotah Garcia M.D. documented in this encounter Miscellaneous Notes * Pre-Procedure Note - Kendra Garcia M.D. - 08/31/2023 2:12 AM CDT OTORHINOLARYNGOLOGY - HEAD AND NECK SURGERY BRIEFING NOTE Ana Fuller is a 53 y.o. female who has PMH significant for polypoid corditis and leukoplakia who we will perform a MDL with CO2-assisted microflap biopsy proceeding as indicated bilaterally with the plan to possibly use KTP ANESTHESIA - ETT: 5-0 laser safe ETT taped to the left - Fio2: <30% while lasering - Paralysis: Yes full paralysis at induction if maskable - Abx: no abx - Decadron: 10mg (unless diabetic) - Pt position: supine - Arm tuck: Right arm tucked, Left arm out to anesthesia - Bed position: 90 degree turn with Left arm adjacent to anesthesia machine - Estimated Time: 1.5-2hr NURSING - Albarado: no - Patient postop status/disposition: outpatient - Meds: Epi pledgets - Prep: Aquaplast mouthguard prior to induction - Special equipment: Modified Dedo, Microscope, CO2 laser with micromanipulator, KTP laser available, 0 and 70-degree gama telescopes - Other concerns: none - follow-up: with me Dakotah Garcia M.D. Chief Administrative Manager [facility] Dept. of Otorhinolaryngology-Head & Neck Surgery documented in this encounter Plan of Treatment Upcoming Encounters Date Type Department Care Team (Latest Contact Info) Description 11/28/2023 2:15 PM CDT Office Visit Department of Otorhinolaryngology in [place], [place] [address] [place] [phone] Kendra Garcia M.D. [address] [place] [phone] 11/29/2023 7:45 AM CDT Clinical Communication Virtual Review in [place], [place] 200 [place] [phone] 11/30/2023 7:00 AM CDT Appointment Department of Laboratory Medicine and Pathology, [facility], in [place], [place] [address] [place] [phone] Eric Renner M.D. [address] [place] [phone] 11/30/2023 9:00 AM CDT Office Visit Division of Hematology in [place], [place] [address] [place] [phone] Aníbal Reece APRN, C.N.P., M.S.N. [address] [place] [phone] 11/30/2023 12:15 PM CDT Infusion Department of Oncology in [place], [place] [address] [place] [phone] Eric Renner M.D. [address] [place] [phone] 12/20/2023 7:45 AM ASSOCIATE BRAND MANAGER Clinical Communication Virtual Review in [place], [place] 200 [place] [phone] 12/21/2023 7:00 AM ASSOCIATE BRAND MANAGER Appointment Department of Laboratory Medicine and Pathology, [facility], in [place], [place] [address] [place] [phone] Eric Renner M.D. [address] [place] [phone] 12/21/2023 9:00 AM ASSOCIATE BRAND MANAGER Office Visit Division of Hematology in [place], [place] [address] [place] [phone] Zulma Hickey APRN, C.N.P., M.S.N. [address] [place] [phone] 12/21/2023 10:00 AM ASSOCIATE BRAND MANAGER Infusion Department of Oncology in [place], [place] [address] [place] [phone] Eric Renner M.D. [address] [place] [phone] 01/11/2024 7:00 AM ASSOCIATE BRAND MANAGER Appointment Department of Laboratory Medicine and Pathology, [facility] in [place], [place] [address] [place] [phone] Eric Renner M.D. [address] [place] [phone] 01/11/2024 9:00 AM ASSOCIATE BRAND MANAGER Office Visit Division of Hematology in [place], [place] [address] [place] [phone] Susu Cameron M.D. [address] [place] [phone] 01/11/2024 10:15 AM ASSOCIATE BRAND MANAGER Infusion Department of Oncology in [place], [place] [address] [place] [phone] Eric Renner M.D. [address] [place] [phone] 01/14/2024 9:15 AM ASSOCIATE BRAND MANAGER Diagnostic Department of Otorhinolaryngology in [place], [place] [address] [place] [phone] Eric Renner M.D. [address] [place] [phone] Wendy Moon Au.D., C.C.C.-A [address] [place] [phone] 01/14/2024 1:00 PM ASSOCIATE BRAND MANAGER Diagnostic Department of Otorhinolaryngology in [place], [place] [address] [place] [phone] Eric Renner M.D. [address] [place] [phone] Osiel Middleton Au.D. [address] [place] [phone] 01/14/2024 4:00 PM ASSOCIATE BRAND MANAGER Clinical Support Department of Otorhinolaryngology in [place], [place] [address] [place] [phone] Eric Renner M.D. [address] [place] [phone] Taj Nicolas PJacquelinTJacquelin [address] [place] [phone] Scheduled Referrals Name Type Priority Associated Diagnoses Order Schedule Otorhinolaryngology Post Op (clinic) Outpatient Referral Routine Expected: 12/01/2023, Expires: 11/30/2024 documented as of this encounter Procedures Procedure Name Priority Date/Time Associated Diagnosis Comments SURGICAL PATHOLOGY, FROZEN LAB Routine 08/31/2023 3:18 PM CDT Polyp Of Vocal Cord And Larynx GLUCOSE POCT, B Routine 08/31/2023 3:07 PM CDT MICROSCOPIC DIRECT LARYNGOSCOPY WITH CARBON DIOXIDE LASER 08/31/2023 2:13 PM CDT Polyp Of Vocal Cord And Larynx Case Notes BARREL RIFLER at 8:26 documented in this encounter Results * Surgical Pathology, Frozen Lab (08/31/2023 3:18 [...] permanent sections. ??Grossed by Marlon Art, P.A. ([facility]). B. ??Received fresh labeled right true [...] SURG PATH ORDERA BLES Performing Organization Address [facility]/ZIP Co de Phone Number [facility] [address] [place] [address], [facility] 200 [facility] 200 [place] [address] * Glucose, POCT (08/31/2023 3:07 PM CDT) Glucose, POCT, B 102 70 - 140 mg/dL 08/31/2023 3:11 PM CDT PCSM Site Capillary 08/31/2023 3:11 PM CDT PCSM Blood 08/31/2023 3:07 PM CDT 08/31/2023 3:11 PM CDT Unknown Provider LAB POCT ORDERABLES- MANUAL Performing Organization Address [facility] [[email or web address]] Co de Phone Number POC [facility] 200 [place] [address], [facility] PCSM [facility] POC [address] [place] [phone] documented in this encounter Visit Diagnoses Diagnosis Polyp Of Vocal Cord And Larynx- Primary Polyp Of Vocal Cord And Larynx documented in this encounter Admitting Diagnoses Diagnosis Polyp Of Vocal Cord And Larynx documented in this encounter Administered Medications Inactive Administered Medications - up to 3 most recent administrations Medication Order MAR Action Action Date Dose Rate Site acetaminophen tablet 1,000 mg (TylenoL) 1,000 mg, oral, Once, On Sun08/31/23 at 1230, For 1 dose, Pre-Op Given 08/31/2023 12:19 PM CDT 1,000 mg ipratropium-albuteroL 0.5-2.5 mg/3 mL nebulizer solution 3 mL (DuoNeb) 3 mL, nebulization, Once, On Sun08/31/23 at 1230, For 1 dose, Pre-Op Given 08/31/2023 1:32 PM CDT 3 mL lidocaine 4 % laryngotracheal solution (Xylocaine) As needed, Starting on Sun08/31/23 at 1604, Intra-Op Given 08/31/2023 4:04 PM CDT 4 mL Trachea documented in this encounter Active and Recently Administered Medications Times are shown in CDT. Scheduled Medication Order 08/29/2023 08/30/2023 08/31/2023 acetaminophen tablet 1,000 mg (TylenoL) (COMPLETED) 1,000 mg, oral, Once, On Sun08/31/23 at 1230, For 1 dose, Pre-Op 1219 (Given - Provid er: Francia Francis RJacquelinN.) ceFAZolin injection 2,000 mg (Ancef) (COMPLETED) 2,000 mg (rounded from 2,005 mg = [...] and drug clearance factors., Indications: Prophylaxis, surgical 1452 (Given - Provid er: Melanie Jones, TEXTILE MACHINE OPERATOR, CRYSTAL ATTACHER, DNAP) ipratropium-albuteroL 0.5-2.5 mg/3 mL nebulizer solution 3 mL (DuoNeb) (COMPLETED) 3 mL, nebulization, Once, On Sun08/31/23 at 1230, For 1 dose, Pre-Op 1332 (Given - Provid er: Zulma Cameron, R.N.) sodium chloride 0.9 % injection 3 mL 3 mL, intravenous, Every 12 hours scheduled, First dose on Sun08/31/23 at 2100, Pre-Op, Peripheral Intravenous Catheter and Rapid Infusion Catheter, when no infusion to maintain patency Continuous Medication Order 08/29/2023 08/30/2023 08/31/2023 Lactated Ringer's 20 mL/hr, intravenous, Continuous, Starting on Sun08/31/23 at 1230, Pre-Op 1230 (Due) Lactated Ringer's 50 mL/hr, intravenous, Continuous, Starting on Sun08/31/23 at 1530, PACU & Post-Op 1530 (Due) PRN Medication Order 08/29/2023 08/30/2023 08/31/2023 lidocaine 4 % laryngotracheal solution (Xylocaine) (CANCELED) As needed, Starting on Sun08/31/23 at 1604, Intra-Op 1604 (Given - Provid er: Larry Moore M.D.) sodium chloride 0.9 % injection 10 mL 10 mL, intravenous, As needed, line care, Starting on Sun08/31/23 at 1201, Pre-Op, Peripheral Intravenous Catheter and Rapid Infusion Catheter, prior to blood sampling, post blood transfusion or post blood sampling sodium chloride 0.9 % injection 3 mL 3 mL, intravenous, As needed, line care, Starting on Sun08/31/23 at 1201, Pre-Op, Prior to and following infusion and between multiple consecutive infusions: sodium chloride 0.9 % injection documented in this encounter Care Teams Sports Analyst Relationship Specialty Start Date End Date Elsewhere, Pcp PCP - General Internal Medicine 08/21/23 documented as of this encounter
--- OUTSIDE RECORDS SUMMARY | 2023-11-20 19:25 | XMS_ITS | Encounter Summary ---
Author Organization [facility] Address [address] [place] [address] Care Team Providers Care Corporate Aircraft Mechanic Name Role Phone Elsewhere, Pcp Primary Care Provider Unavailabl e Encounter Details Date Type Department Care Team (Late st Contact Info) Description 08/31/2023 9:15 PM CDT Ancillary Procedure Department of General Surgery Social History Tobacco Use Types Packs/Day Years [...] CDT Office Visit Department of Otorhinolaryngology in [place], [place] [address] [place] [phone] Kendra Garcia M.D. [address] [place] [phone] 11/29/2023 7:45 AM CDT Clinical Communication Virtual Review in [place], [place] 200 [place] [phone] 11/30/2023 7:00 AM CDT Appointment Department of Laboratory Medicine and Pathology, [facility], in [place], [place] [address] [place] [phone] Eric Renner M.D. [address] [place] [phone] 11/30/2023 9:00 AM CDT Office Visit Division of Hematology in [place], [place] [address] [place] [phone] Aníbal Reece, FAVIOLA, C.N.P., M.S.N. [address] [place] [phone] 11/30/2023 12:15 PM CDT Infusion Department of Oncology in [place], [place] [address] [place] [phone] Eric Renner M.D. [address] [place] [phone] 12/20/2023 7:45 AM CASCARA BARK CUTTER Clinical Communication Virtual Review in [place], [place] 200 [place] [phone] 12/21/2023 7:00 AM CASCARA BARK CUTTER Appointment Department of Laboratory Medicine and Pathology, [facility] in [place], [place] [address] [place] [phone] Eric Renner M.D. [address] [place] [phone] 12/21/2023 9:00 AM CASCARA BARK CUTTER Office Visit Division of Hematology in [place], [place] [address] [place] [phone] Zulma Hickey APRN, C.N.P., M.S.N. [address] [place] [phone] 12/21/2023 10:00 AM CASCARA BARK CUTTER Infusion Department of Oncology in [place], [place] [address] [place] [phone] Eric Renner M.D. [address] [place] [phone] 01/11/2024 7:00 AM CASCARA BARK CUTTER Appointment Department of Laboratory Medicine and Pathology, [facility], in [place], [place] [address] [place] [address] Eric Renner M.D. [address] [place] [phone] 01/11/2024 9:00 AM CASCARA BARK CUTTER Office Visit Division of Hematology in [place], [place] [address] [place] [address] Susu Cameron M.D. [address] [place] [phone] 01/11/2024 10:15 AM CASCARA BARK CUTTER Infusion Department of Oncology in [place], [place] [address] [place] [phone] Eric Renner M.D. [address] [place] [phone] 01/14/2024 9:15 AM CASCARA BARK CUTTER Diagnostic Department of Otorhinolaryngology in [place], [place] [address] [place] [address] Eric Renner M.D. [address] [place] [phone] Wendy Moon Au.D., C.C.CJacquelin-A [address] [place] [phone] 01/14/2024 1:00 PM CASCARA BARK CUTTER Diagnostic Department of Otorhinolaryngology in [place], [place] [address] [place] [address] Eric Renner M.D. [address] [place] [phone] Osiel Middleton Au.D. [address] [place] [phone] 01/14/2024 4:00 PM CASCARA BARK CUTTER Clinical Support Department of Otorhinolaryngology in [place], [place] [address] [place] [address] Eric Renner M.D. [address] [place] [phone] Taj Nicolas PGirish [address] [place] [phone] documented as of this encounter Procedures Procedure Name Priority Date/Time Associated Diagnosis Comments SURGERY IMAGE EXAM Routine 08/31/2023 4: 06 PM CDT documented in this encounter Results * MICROSCOPIC DIRECT LARYNGOSCOPY WITH CARBON DIOXIDE [...] on filedocumented in this encounter Care Teams Corporate Aircraft Mechanic Relationship Specialty Start Date End Date Elsewhere, Pcp PCP - General Internal Medicine 08/21/23 documented as of this encounter
--- OUTSIDE RECORDS SUMMARY | 2023-11-20 19:25 | XMS_ITS | Encounter Summary ---
Author Organization [facility] Address [address] [place] [address] Care Team Providers Care Video Technician Name Role Phone Elsewhere, Pcp Primary Care Provider Unavailabl e Encounter Details Date Type Department Care Team (Latest Contact Info) Description 09/11/2023 2:34 PM CDT - 09/11/2023 11:59 PM CDT Hospital Encounter Department of Laboratory Medicine and Pathology, [facility] in [place], [place] [address] [place] [address] Eric Renner M.D. 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 [address] [place] [phone] 11/29/2023 7:45 AM CDT Clinical Communication Virtual Review in [address] [phone] 11/30/2023 7:00 AM CDT Appointment Department of Laboratory Medicine and Pathology, [facility] in [place], [place] [address] [place] [phone] Eric Renner M.D. [address] [place] [phone] 11/30/2023 9:00 AM CDT Office Visit Division of Hematology in [address] [phone] Aníbal Reece, NATIONAL [employer]AT[employer] TRUCK DRIVER, C.N.P., M.S.N. [address] [place] [phone] 11/30/2023 12:15 PM CDT Infusion Department of Oncology in [address] [phone] Eric Renner M.D. [address] [place] [phone] 12/20/2023 7:45 AM MOVEMENT ASSEMBLER Clinical Communication Virtual Review in [address] [place] [phone] 12/21/2023 7:00 AM MOVEMENT ASSEMBLER Appointment Department of Laboratory Medicine and Pathology, [facility] in [place], [place] [address] [place] [phone] Eric Renner M.D. [address] [place] [phone] 12/21/2023 9:00 AM MOVEMENT ASSEMBLER Office Visit Division of Hematology in [place], [place] [address] [place] [phone] Zulma Hickey APRN, C.N.P., M.S.N. [address] [place] [phone] 12/21/2023 10:00 AM MOVEMENT ASSEMBLER Infusion Department of Oncology in [place], [place] [address] [place] [phone] Eric Renner M.D. [address] [place] [phone] 01/11/2024 7:00 AM MOVEMENT ASSEMBLER Appointment Department of Laboratory Medicine and Pathology, [facility], in [address] [phone] Eric Renner M.D. [address] [place] [phone] 01/11/2024 9:00 AM MOVEMENT ASSEMBLER Office Visit Division of Hematology in [address] [phone] Susu Cameron M.D. [address] [place] [phone] 01/11/2024 10:15 AM MOVEMENT ASSEMBLER Infusion Department of Oncology in [place], [place] [address] [place] [phone] Eric Renenr M.D. [address] [place] [phone] 01/14/2024 9:15 AM MOVEMENT ASSEMBLER Diagnostic Department of Otorhinolaryngology in [place], [place] [address] [place] [phone] Eric Renner M.D. [address] [place] [phone] Wendy Moon Au.D., C.C.CJacquelin-A [address] [place] [phone] 01/14/2024 1:00 PM MOVEMENT ASSEMBLER Diagnostic Department of Otorhinolaryngology in [place], [place] [address] [place] [phone] Eric Renner M.D. [address] [place] [phone] Osiel Middleton Au.D. [address] [place] [phone] 01/14/2024 4:00 PM MOVEMENT ASSEMBLER Clinical Support Department of Otorhinolaryngology in [place], [place] [address] [place] [phone] Eric Renner M.D. 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 LAB URINE ORDERABLES [facility] [place] [address] [place] [address], [facility] [address] [place] [address] * Osmolality, Urine (09/11/2023 3:00 PM CDT) Pathologist [facility] Osmolality, U 536 150 - 1150 mOsm/kg 09/11/2023 3:36 PM CDT DTL Urine 09/11/2023 3:00 PM CDT 09/11/2023 3:22 PM CDT Eric Monzon M.D. LAB URINE ORDERABLES Performing Organization Address City/[facility]/ZIP Co de Phone Number [facility] [place] [address] [place], [place] [phone] [place] [address] [address] [place] [address] * (ABNORMAL) Microscopic Manual (09/11/2023 3:00 PM [...] CDT Eric Monzon M.D. LAB URINE ORDERABLES [facility] [place] [address] [place] [address], [facility] [address] [place] [address] * pH, Random, Urine (09/11/2023 3:00 PM CDT) pH, Random, U 5.1 4.5 - 8.0 09/11/2023 3:36 PM CDT DTL Urine 09/11/2023 3:00 PM CDT 09/11/2023 3:22 PM CDT Eric Monzon M.D. LAB URINE ORDERABLES Performing Organization Address City/[facility] Co de Phone Number [facility] [place] [address] [place] [address], [facility] DTL [facility] [address] [place] [address] * Urinalysis, with Microscopic: Urine, Midstream (09/11/2023 [...] CDT Eric Monzon M.D. LAB URINE ORDERABLES [facility] [place] [address] [place] [address], [facility] [address] [place] [address] documented in this encounter Visit Diagnoses Diagnosis Diffuse Large B Cell Lymphoma Unspecified Site (HCC) documented in this encounter Care Teams Video Technician Relationship Specialty Start Date End Date Elsewhere, Pcp PCP - General Internal Medicine 08/21/23 documented as of this encounter
--- OUTSIDE RECORDS SUMMARY | 2023-11-20 19:25 | XMS_ITS | Encounter Summary ---
Author Organization [facility] Address [address] [place] [address] Care Team Providers Care National Account Manager Name Role Phone Elsewhere, Pcp Primary Care Provider Unavailabl e Reason for Visit * Reason Onset Date Comments Echo Scheduling 09/12/2023 Encounter Details Date Type Department Care Team (Latest Contact Info) Description 09/12/2023 Clinical Communication Division of Hematology in [place], [place] [address] [place] [address] Eric Renner M.D. [address] [place] [phone] Echo Scheduling Social History Tobacco Use Types Packs/Day Years Used Date Smoking Tobacco: Every Day Cigarettes 1.5 81.8 Started: 02/12/1982 Smokeless Tobacco: Never Alcohol Use Standard Drinks/Week Comments Not Currently 0 (1 standard drink = 0.6 oz pur e alcohol) rarely [facility] Utilities Answer Date Recorded In the past 12 months has [employer], gas, oil, or water [employer] threatened to shut off services in your [...] your living situation today? [facility] have a [facility] place [facility] 08/15/2023 Sex [...] CDT Office Visit Department of Otorhinolaryngology in [place], [place] [address] [place] [phone] Kendra Garcia M.D. [address] [place] [phone] 11/29/2023 7:45 AM CDT Clinical Communication Virtual Review in [place], [place] 200 [place] [phone] 11/30/2023 7:00 AM CDT Appointment Department of Laboratory Medicine and Pathology, [facility] in [place], [place] [address] [place] [phone] Eric Renner M.D. [address] [place] [phone] 11/30/2023 9:00 AM CDT Office Visit Division of Hematology in [place], [place] [address] [place] [phone] Aníbal Reece APRN, C.N.P., M.S.N. [address] [place] [phone] 11/30/2023 12:15 PM CDT Infusion Department of Oncology in [place], [place] [address] [place] [phone] Eric Renner M.D. [address] [place] [phone] 12/20/2023 7:45 AM SENIOR TAX SPECIALIST Clinical Communication Virtual Review in [place], [place] [address] [place] [phone] 12/21/2023 7:00 AM SENIOR TAX SPECIALIST Appointment Department of Laboratory Medicine and Pathology, [facility], in [place], [place] [address] [place] [phone] Eric Renner M.D. [address] [place] [phone] 12/21/2023 9:00 AM SENIOR TAX SPECIALIST Office Visit Division of Hematology in [place], [place] [address] [place] [phone] Zulma Hickey APRN, C.NMaggi., M.S.N. [address] [place] [phone] 12/21/2023 10:00 AM SENIOR TAX SPECIALIST Infusion Department of Oncology in [place], [place] [address] [place] [phone] Eric Renner M.D. [address] [place] [phone] 01/11/2024 7:00 AM SENIOR TAX SPECIALIST Appointment Department of Laboratory Medicine and Pathology, [facility] in [place], [place] [address] [place] [address] Eric Renner M.D. [address] [place] [phone] 01/11/2024 9:00 AM SENIOR TAX SPECIALIST Office Visit Division of Hematology in [place], [place] [address] [place] [address] Susu Cameron M.D. [address] [place] [phone] 01/11/2024 10:15 AM SENIOR TAX SPECIALIST Infusion Department of Oncology in [place], [place] [address] [place] [address] Eric Renner M.D. [address] [place] [phone] 01/14/2024 9:15 AM SENIOR TAX SPECIALIST Diagnostic Department of Otorhinolaryngology in [place], [place] [address] [place] [address] Eric Renner M.D. [address] [place] [phone] Wendy Moon Au.D., C.C.C.-A [address] [place] [phone] 01/14/2024 1:00 PM SENIOR TAX SPECIALIST Diagnostic Department of Otorhinolaryngology in [place], [place] [address] [place] [address] Eric Renner M.D. [address] [place] [phone] Osiel Middleton Au.D. [address] [place] [phone] 01/14/2024 4:00 PM SENIOR TAX SPECIALIST Clinical Support Department of Otorhinolaryngology in [place], [place] [address] [place] [phone] Eric Renner M.D. [address] [place] [phone] Taj Nicolas, P.TJacquelin [address] [place] [phone] documented as of this encounter Visit Diagnoses Not on filedocumented in this encounter Additional Health Concerns Infection Onset Date Last Indicated Resolved Time Protective Environment 09/19/2023 09/19/2023 documented as of this encounter Care Teams National Account Manager Relationship Specialty Start Date End Date Elsewhere, Pcp PCP - General Internal Medicine 08/21/23 documented as of this encounter
--- OUTSIDE RECORDS SUMMARY | 2023-11-20 19:25 | XMS_ITS | Encounter Summary ---
Author Organization [facility] Address [address] [place] [address] Care Team Providers Care Claims Consultant Name Role Phone Elsewhere, Pcp Primary Care Provider Unavailabl e Reason for Referral * MRI/CAT/PET Scan (Routine) - Closed Specialty Diagnoses / Procedures Referred By Julio faustin Referred To Contact Diagnoses Diffuse Large B Cell Lymphoma Unspecified Site (HCC) Procedures PET CT Whole Body FDG PET CT Skull to Thigh FDG PET CT Skull to Thigh FDG Eric Renner M.D. [address] [place] [address] [facility] Referral ID Status Reason Start Date Expiration Date Visits Re quested Visits Authorized [id number] Closed 09/11/2023 09/10/2024 1 1 * Medication Prior Authorization - Authorized Specialty Diagnoses / Procedures Referred By Julio t Referred To Contact Eric Renner M.D. [address] [place] [address] Referral ID Status Reason Start Date Expiration Date V isits Requested Visits Authorized [id number] Authorized 09/13/2023 09/12/2024 1 1 * Cardiovascular-Diagnostic (Routine) - Closed Specialty Diagnoses / Procedures Referred By Contdelia t Referred To Contact Diagnoses Diffuse Large B Cell Lymphoma Unspecified Site (HCC) Procedures Echo Transthoracic (TTE) Eric Renner M.D. [address] [place] [phone] [facility] Referral ID Status Reason Start Date Expiration Date Visits Re quested Visits Authorized [id number] Closed 09/11/2023 09/10/2024 1 1 Reason for Visit * Outpatient (Routine) - Closed Specialty Diagnoses / Procedures Referred By Julio faustin Referred To Contact Hematology Diagnoses Diffuse Large B Cell Lymphoma Unspecified Site (HCC) Jose Zhang M.D. [address] [place] [phone] [facility] Referral ID Status Reason Start Date Expiration Date Visits Re quested Visits Authorized [id number] Closed 08/30/2023 02/28/2025 1 1 Encounter Details Date Type Department Care Team (Latest Contact Info) Description 09/11/2023 1:00 PM CDT Comprehensive Visit Division of Hematology in [place], [place] [address] [place] [phone] Eric Renner M.D. [address] [place] [phone] Diffuse Large B Cell Lymphoma Unspecified Site (HCC) Social History Tobacco Use Types Packs/Day Years Used Date Smoking Tobacco: Every Day Cigarettes 1.5 81.8 Started: 02/12/1982 Smokeless Tobacco: Never Alcohol Use Standard Drinks/Week Comments Not Currently 0 (1 standard drink = 0.6 oz pur e alcohol) rarely [facility] Utilities Answer Date Recorded In the past 12 months has [employer], gas, oil, or water [employer] threatened to shut off services in your [...] your living situation today? I have a [facility] place to live 08/15/2023 Sex and Gender Information Value Date Recorded Sex Assigned at Female 08/15/2023 7:51 AM CDT Gender Identity Female 08/15/2023 7:51 AM CDT Sexual Orientation Straight 08/15/2023 7: 51 AM CDT documented as of this encounter Last Filed Vital Signs Vital Sign Reading Time Taken Comments Blood Pressure 107/73 09/11/2023 1:07 PM CDT Pulse 99 09/11/2023 1:07 PM CDT Temperature 36.6 ??C (97.8 ??F) 09/11/2023 1:07 PM CD T Respiratory Rate - - Oxygen Saturation 94% 09/11/2023 1:07 PM CDT Inhaled Oxygen Concentration - - Weight 82.3 kg (181 lb 8.8 oz) 09/11/2023 1:07 P M CDT Height 165.4 cm (5' 5.12) 09/11/2023 1:07 PM CD T Body Mass Index 30.1 09/11/2023 1:07 PM CDT documented in this encounter Consult Notes * Eric Renner M.D. - 09/11/2023 1:00 PM CDT SUBJECTIVE REFERRING PROVIDER Jose Zhang M.D. REASON FOR VISIT DLBCL HISTORY OF PRESENT ILLNESS Patient is a [...] the left hip. Images not reviewed by [facility]. 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 INTERVAL HISTORY Arriving in lymphoma clinic with a new diagnosis of DLBCL. Complains of pain of the left hip, worseat night, currently managed with oxycodone 5 mg Q 5 hours p.r.n. and ibuprofen. Admits to drenchingnight sweats. Denies unintentional weight loss. MEDICATIONS Reviewed MEDICAL/SURGICAL HISTORY Hyperlipidemia Type 2 diabetes, on metformin and Mounjaro COPD Vocal cord polyps Major depressive disorder with psychotic features Lymphoma, per HPI SOCIAL HISTORY Lives in [place], [place] with (Tino) and 3 dogs. Two adult children living in the [place]. Works in [employer]. Started smoking at age 12, smoked between 1-1/2 and 2-1/2 packs per day, quit2 weeks ago. Rare use of alcoholic beverages, maybe 3 times a year. FAMILY HISTORY Father of pancreatic cancer at age 53. No family history of hematological malignancies to her knowledge. REVIEW OF SYSTEMS All systems reviewed and negative except for HPI. OBJECTIVE There were no vitals filed for this visit. There is no height or weight on file to calculate BSA. PHYSICAL EXAM There were no vitals taken for this visit. Wt Readings from Last 3 Encounters: 08/31/23 80.2 kg General: Accompanied by . No acute distress. ECOG performance status is [0]. Counseling visit, patient not fully examined. DIAGNOSTICS I have reviewed the recent relevant labs, CT, MRI, and diagnostics. LABORATORY No results found for this or any previous visit (from the past 72 hour(s)). RADIOLOGY Reviewed reports, per HPI. PATHOLOGY Reviewed report, per HPI. ASSESSMENT / PLAN #1 DLBCL, advanced stage We had a long discussion during which I reviewed the general medical history, family history, social history, and the details of the lymphoma history. We proceeded to have a discussion regarding the classification of lymphoma histological subtypes during which I placed the patient's lymphoma in context with the other different lymphoma subtypes. She has been diagnosed with diffuse large B-cell lymphoma presenting with involvement of the left pelvic bone and a soft tissue adjacent mass. Additional testing will be required to complete initial investigation and are listed below. She will require treatment with chemo immunotherapy, additional details to be provided at next visit. #2 Nicotine dependence #3 Tobacco use Discussed with the patient the importance of smoking cessation with the goal of optimizing cancer treatment outcomes. Offered referral to the smoking cessation clinic which she has declined at this time. #4 Pain in the left pelvis secondary to #1 She is currently managing her pain with ibuprofen and oxycodone p.r.n.. I recommend her using as little ibuprofen as possible. I will provide her with a refill of her oxycodone immediate release prescription to last for approximately 3 weeks. I anticipate that her oxycodone requirements will decrease significantly once treatment starts. Follow-up: Return to clinic after tests Education We discussed the diagnosis and treatment plan in detail. The patient expressed understanding of thecontent. No apparent learning barriers were identified; learning preferences include listening. Orders Placed This Encounter Procedures HBc Total Ab Scrn, Serum HCV Ab w/Reflex to HCV PCR, Serum HBs Antigen Scrn, Serum HIV-1/-2 Ag and Ab Screen, Plasma PET CT Skull to Thigh FDG 25-Hydroxyvitamin D2 and D3 Alkaline Phosphatase AST (Aspartate Aminotransferase) Fuqi-0-Zsmrmthsmkzyr (Beta-2-M) Bilirubin, Total Calcium, Total CBC with Differential, Blood Creatinine with Estimated GFR Glucose, Fasting LD (Lactate Dehydrogenase) Potassium Urinalysis, with Microscopic: Urine, Midstream Uric Acid Quantitative M-protein Study Immunoglobulins (IgG, IgA, and IgM) Leukemia/Lymphoma Immunophenotyping by Flow Cytometry, Blood Quantitative Lymphocyte Subsets: T, B, and Natural Killer (NK) Hematology office visit (clinic) Echo Transthoracic (TTE) I personally spent 64 minutes in care of the patient today. Time includes both non face to face andface to face patient care. Signed by: Bandar Monzon M.D. 09/11/2023 documented in this encounter Plan of Treatment Upcoming Encounters Date Type Department Care Team (Latest Contact Info) Description 11/28/2023 2:15 PM CDT Office Visit Department of Otorhinolaryngology in [address] [phone] Kendra Garcia M.D. [address] [place] [phone] 11/29/2023 7:45 AM CDT Clinical Communication Virtual Review in [place], [place] 200 [place] [phone] 11/30/2023 7:00 AM CDT Appointment Department of Laboratory Medicine and Pathology, [facility] in [place], [place] [address] [place] [phone] Eric Renner M.D. [address] [place] [phone] 11/30/2023 9:00 AM CDT Office Visit Division of Hematology in [address] [phone] Aníbal Reece, ELECTRONEURODIAGNOSTIC TECHNICIAN, C.N.P., M.S.N. [address] [place] [phone] 11/30/2023 12:15 PM CDT Infusion Department of Oncology in [place], [place] [address] [place] [phone] Eric Renner M.D. [address] [place] [phone] 12/20/2023 7:45 AM BREWER HELPER Clinical Communication Virtual Review in [place], [place] [address] [place] [phone] 12/21/2023 7:00 AM BREWER HELPER Appointment Department of Laboratory Medicine and Pathology, [facility] in [place], [place] [address] [place] [phone] Eric Renner M.D. [address] [place] [phone] 12/21/2023 9:00 AM BREWER HELPER Office Visit Division of Hematology in [place], [place] [address] [place] [phone] Zulma Hickey APRN, C.N.P., M.S.N. [address] [place] [phone] 12/21/2023 10:00 AM BREWER HELPER Infusion Department of Oncology in [place], [place] [address] [place] [phone] Eric Renner M.D. [address] [place] [phone] 01/11/2024 7:00 AM BREWER HELPER Appointment Department of Laboratory Medicine and Pathology, [facility], in [place], [place] [address] [place] [phone] Eric Renner M.D. [address] [place] [phone] 01/11/2024 9:00 AM BREWER HELPER Office Visit Division of Hematology in [place], [place] [address] [place] [phone] Susu Cameron M.D. [address] [place] [phone] 01/11/2024 10:15 AM BREWER HELPER Infusion Department of Oncology in [place], [place] [address] [place] [address] Eric Renner M.D. [address] [place] [phone] 01/14/2024 9:15 AM BREWER HELPER Diagnostic Department of Otorhinolaryngology in [place], [place] [address] [place] [address] Eric Renner M.D. [address] [place] [phone] Wendy Moon Au.D., C.CJacquelinCJacquelin-Grceia [address] [place] [phone] 01/14/2024 1:00 PM BREWER HELPER Diagnostic Department of Otorhinolaryngology in [place], [place] [address] [place] [address] Eric Renner M.D. [address] [place] [phone] Osiel Middleton Au.D. [address] [place] [phone] 01/14/2024 4:00 PM BREWER HELPER Clinical Support Department of Otorhinolaryngology in [place], [place] [address] [place] [phone] Eric Renner M.D. [address] [place] [phone] Taj Nicolas, P.TJacquelin [address] [place] [phone] documented as of this encounter Results * [...] RADIOPHARMACEUTICAL/MEDS: Route: intravenous fludeoxyglucose F 18 injection MCC (FDG F-18),4.93 millicurie TECHNIQUE: ??F-18 FDG PET/CT [...] the skeleton. Eric Monzon M.D. IMG NM SD OCEDUBRIAN * (TTE) 2D ECHO DOPPLER COLOR (09/14/2023 [...] 7:58 AM CDT There are no previous [facility] echocardiograms available for comparison. Patient was in extreme pain laying in left lateral position. Optimal images acquired in left lateral position, intermittently, based on patients pain tolerance. LEFT VENTRICLE:Normal left ventricular chamber size. Normal left ventricular geometry. Calculated 2-D biplane volumetric left ventricular ejection fraction of 59%. Left ventricular strain assessment was performed but not reported based on waffle machine operator's judgment (limited image quality) No [...] pericardial effusion. Findings There are no previous [facility] echocardiograms available forcomparison. Patient was in extreme pain laying in left lateral position.Optimal images acquired in left lateral position, intermittently, based onpatients pain tolerance. LEFT VENTRICLE:Normal left ventricular chamber size. Normal leftventricular geometry. Calculated 2-D biplane volumetric left ventricularejection fraction of 59%. Left ventricular strain assessment was performedbut not reported based on waffle machine operator's judgment (limited image quality)No regional [...] Monzon M.D. CV ECHO P ROCEDURES * Urinalysis, with Microscopic: Urine, Midstream (09/11/2023 [...] CDT Eric Monzon M.D. LAB URINE ORDERABLES [facility] [address] [place] [address], [facility] [address] [place] [address] * Leukemia/Lymphoma Immunophenotyping by Flow Cytometry, Blood (09/11/2023 2:56 PM CDT) Pathologist [facility] LCMSB Result Performed 09/12/2023 12:36 PM CDT [...] 12:36 PM CDT DTL Microscopic Description A Fhixvc-Qzrmrf-kpswxd d slide prepared from the flow cytometry specimen is examined. ??No morphologic features of acute leukemia or lymphoma are identified. 09/12/2023 12:36 PM CDT DTL Comment: ----ADDITIONAL INFORMATION---- This test was developed using an analyte specific reagent. Its performance characteristics were determined by [facility] in a manner consistent with CLIA requirements. This test has not been cleared or approved by the U.S. Food and Drug Administration. Blood (Blood, Venous) 09/11/2023 2:56 PM CDT 09/11/2023 3:20 PM CDT Eric Monzon M.D. LAB SHILO IC TESTING Performing Organization Address City/[facility]/ZIP Co de Phone Number [facility] 200 [place] [address], [facility] DTL 200 [facility] 200 [place] [address] * (ABNORMAL) Glucose, Fasting (09/11/2023 2:56 PM CDT) Glucose, P 103(H) 70 - 100 mg/dL 09/11/2023 3:40 PM CDT DTL Last Intake 8 hr 09/11/2023 3:08 PM CDT DTL Blood (Blood, Venous) 09/11/2023 2:56 PM CDT 09/11/2023 3:08 PM CDT Eric Monzon M.D. LAB BLOOD NON ADD-ON [facility] [address] [place] [address], [facility] DTL [facility] [address] [place] [address] * (ABNORMAL) Quantitative Lymphocyte Subsets: T, B, and Natural Killer (NK) (09/11/2023 2:55 PM CDT) CD45 Total Lymph Count 2.40 0.82 - 2.84 thou/[facility] 09/12/2023 10:27 AM CDT SDSC % CD3 (T Cells) 49(L) 58 - 86 % 10:27 AM CDT SDSC CD3 (T Cells) 1169 550 - 2202 cells/[facility] 09/12/2023 10:27 AM CDT SDSC % CD4 (T Cells) 28(L) 32 - 64 % 10:27 AM CDT SDSC CD4 (T Cells) 676 365 - 1437 cells/[facility] 09/12/2023 10:27 AM CDT SDSC % CD8 (T Cells) 21 11 - 40 % 10:27 AM CDT SDSC CD8 T Cells 506 117 - 846 cells/[facility] 09/12/2023 10:27 AM CDT SDSC % CD19 (B Cells) 44(H) 5 - 24 % 09/12/19 24 10:27 AM CDT SDSC CD19 (B Cells) 1066(H) 60 - 409 cells/mcL 09/12/2023 10:27 AM CDT SDSC % CD16+CD56 (NK cells) 6 5 - 28 % 09/12/2023 10:27 AM CDT SDSC CD16+CD56 (NK cells) 153 59 - 513 cells/[facility] 09/12/2023 10:27 AM CDT SDSC 4/8 Ratio 1.3 >=0.9 09/12/2023 10:27 AM CDT SDSC Comment: ----ADDITIONAL INFORMATION---- This test was developed using an analyte specific reagent. Its performance characteristics were determined by [facility] in a manner consistent with CLIA requirements. This test has not been cleared or approved by the U.S. Food and Drug Administration. Blood (Blood, Venous) 09/11/2023 2:55 PM CDT 09/11/2023 6:38 PM CDT Eric Monzon M.D. LAB BLOOD ADD-ON [facility] [address] [place] [address] [facility] [address] [place] [address] [place] [address] * (ABNORMAL) Quantitative M-protein Study (09/11/2023 2:55 PM CDT) Pathologist [facility] Immunoglobulin A (IgA), S 142 61 - [...] developed and its performance characteristics determined by [facility] in a manner consistent with CLIA requirements. This test has not been cleared or approved by the U.S. Food and Drug Administration. Blood (Blood, Venous) 09/11/2023 2:55 PM CDT 09/12/2023 6:17 AM CDT Narrative [facility] - 09/12/2023 5:43 PM CDT Specimen Information: Specimen ID: [id number] Specimen Type: Blood Specimen Collection Start Date: 09/11/2023 ??2:55 PM Specimen Received Date: 09/12/2023 ??6:17 AM Specimen ID: [id number] Specimen Type: Blood Specimen Collection Start Date: 09/11/2023 ??2:55 PM Specimen Received Date: 09/12/2023 ??6:09 AM Eric Monzon M.D. LAB BLOOD ADD-ON [facility] [address] [place] [address] [facility] [address] [place] [address] [facility] [address] [place] [address] [place] [address] * Uric Acid (09/11/2023 2:55 PM CDT) Uric Acid, S 5.5 2.7 - 6.1 mg/dL 09/11/2023 3:44 PM CDT DTL Blood (Blood, Venous) 09/11/2023 2:55 PM CDT 09/11/2023 3:26 PM CDT Eric Monzon M.D. LAB BLOOD ADD-ON [facility] [address] [place] [address], [facility] [address] [place] [address] * Potassium (09/11/2023 2:55 PM CDT) Potassium, S 5.1 3.6 - 5.2 mmol/L 09/11/2023 3:44 PM CDT DTL Blood (Blood, Venous) 09/11/2023 2:55 PM CDT 09/11/2023 3:26 PM CDT Eric Monzon M.D. LAB BLOOD ADD-ON [facility] [address] [place] [address], [facility] [address] [place] [address] * (ABNORMAL) LD (Lactate Dehydrogenase) (09/11/2023 2:55 PM CDT) Pathologist [facility] Lactate Dehydrogenase (LD), S 320(H) 122 - 222 U/L 09/11/2023 3:44 PM CDT [facility] Blood (Blood, Venous) 09/11/2023 2:55 PM CDT 09/11/2023 3:26 PM CDT Eric Monzon M.D. LAB BLOOD NON ADD-ON [facility] [address] [place] [address], [facility] [address] [place] [address] * HIV-1/-2 Ag and Ab Screen, Plasma (09/11/2023 2:55 PM CDT) Pathologist [facility] HIV-1/-2 Ag and Ab Screen, P Negative Negative 09/11/2023 7:28 PM CDT [facility] Comment: Negative result does not rule out HIV infection. If exposure to HIV infection occurred <14 days ago, contact the laboratory to request addition of HIV-1/HIV-2 RNA detection, Plasma (HIP12). Blood (Blood, Venous) 09/11/2023 2:55 PM CDT 09/11/2023 6:41 PM CDT Narrative Authorizing Provider Result Aura Monzon M.D. LAB MICRO BIOLOGY - BLOOD ORDERABLES [facility] [address] [place] [address] [facility] [address] [place] [address] * HBs Antigen Scrn, Serum (09/11/2023 2:55 PM CDT) Pathologist [facility] HBs Antigen Scrn, S Negative Negative 09/11/2023 7:33 PM CDT [facility] Blood (Blood, Venous) 09/11/2023 2:55 PM CDT 09/11/2023 6:41 PM CDT Narrative Authorizing Provider Result Aura Monzon M.D. LAB MICRO BIOLOGY - BLOOD ORDERABLES [facility] [address] [place] [address] [facility] [address] [place] [address] * HCV Ab w/Reflex to HCV PCR, Serum (09/11/2023 2:55 PM CDT) HCV Ab, S Negative Negative 09/11/2023 7:30 PM CDT [facility] Comment: Consumption of high-dose biotin supplement within 12 hours of blood collection for this test can cause false-negative results. Blood (Blood, Venous) 09/11/2023 2:55 PM CDT 09/11/2023 6:41 PM CDT Narrative Authorizing Provider Result Aura Monzon M.D. LAB MICRO BIOLOGY - BLOOD ORDERABLES [facility] [address] [place] [address] [facility] [address] [place] [address] * HBc Total Ab Scrn, Serum (09/11/2023 2:55 PM CDT) HBc Total Ab Scrn, S Negative Negative 09/11/2023 7:33 PM CDT [facility] Blood (Blood, Venous) 09/11/2023 2:55 PM CDT 09/11/2023 6:41 PM CDT Narrative Authorizing Provider Result Aura Monzon M.D. LAB MICRO BIOLOGY - BLOOD ORDERABLES [facility] [address] [place] [address] [facility] [address] [place] [address] * Creatinine with Estimated GFR (09/11/2023 2:55 PM CDT) Creatinine 0.95 0.59 - 1.04 mg/dL 09/11/2023 3:44 PM CDT DTL Estimated GFR (eGFR) 71 >=60 mL/min/BSA 09/11/2023 3:44 PM CDT DTL Comment: Estimated GFR calculated using the 2020 CKD_EPI creatinine equation. Blood (Blood, Venous) 09/11/2023 2:55 PM CDT 09/11/2023 3:26 PM CDT Eric Monzon M.D. LAB BLOOD ADD-ON [facility] [address] [place] [address], [facility] [address] [place] [address] * CBC with Differential, Blood (09/11/2023 2:55 PM CDT) Pathologist [facility] Hemoglobin 14.4 11.6 - 15.0 g/dL 09/11/2023 [...] - 6.45 x10(9)/L 09/11/2023 7:02 PM CDT [facility] Comment:Rechecked Lymphocytes 2.28 0.95 - 3.07 x10(9)/L 09/11/2023 7:03 PM CDT DTL Monocytes 0.47 0.26 - 0.81 x10(9)/L 09/11/2023 7:03 PM CDT DTL Eosinophils 0.15 0.03 - 0.48 x10(9)/L 09/11/2023 7:03 PM CDT DTL Basophils 0.03 0.01 - 0.08 x10(9)/L 09/11/2023 7:03 PM CDT DTL Blood (Blood, Venous) 09/11/2023 2:55 PM CDT 09/11/2023 3:12 PM CDT Eric Monzon M.D. LAB BLOOD ADD-ON [facility] [address] [place], [place] [phone] [place] [phone] [place] [address] * (ABNORMAL) Calcium, Total (09/11/2023 2:55 PM CDT) Calcium, Total, S 10.1(H) 8.6 - 10.0 mg/dL 09/11/2023 3:44 PM CDT DTL Blood (Blood, Venous) 09/11/2023 2:55 PM CDT 09/11/2023 3:26 PM CDT Eric Monzon M.D. LAB BLOOD ADD-ON [facility] [address] [place], [place] [phone] [place] [address] * Bilirubin, Total (09/11/2023 2:55 PM CDT) Bilirubin, Total, S 0.4 0.0 - 1.2 mg/dL 09/11/2023 3:44 PM CDT DTL Blood (Blood, Venous) 09/11/2023 2:55 PM CDT 09/11/2023 3:26 PM CDT Narrative Authorizing Provider Result Aura Monzon M.D. LAB BLOOD ADD-ON [facility] [address] [place] [address], [facility] [address] [place] [address] * (ABNORMAL) Avpv-5-Xwmlcoalaiecg (Beta-2-M) (09/11/2023 2:55 PM CDT) Tepj-8-Lkumxwt obulin, S 2.97(H) 1.21 - 2.70 mcg/mL 09/12/2023 9:00 AM CDT [facility] Blood (Blood, Venous) 09/11/2023 2:55 PM CDT 09/12/2023 6:17 AM CDT Narrative Authorizing Provider Result Aura Monzon M.D. LAB BLOOD ADD-ON Performing Organization Address City/[facility]/ZIP Co de Phone Number [facility] [address] [place] [address] [facility] [address] [place] [address] * AST (Aspartate Aminotransferase) (09/11/2023 2:55 PM CDT) Aspartate Aminotransferase (AST), S 24 8 - 43 U/L 09/11/2023 3:44 PM CDT DT Blood (Blood, Venous) 09/11/2023 2:55 PM CDT 09/11/2023 3:26 PM CDT Narrative Authorizing Provider Result Aura Monzon M.D. LAB BLOOD ADD-ON [facility] [address] [place] [address], [facility] DTL [facility] [address] [place] [address] * (ABNORMAL) Alkaline Phosphatase (09/11/2023 2:55 PM CDT) Alkaline Phosphatase, S 141(H) 35 - 104 U/L 09/11/2023 3:44 PM CDT DTL Blood (Blood, Venous) 09/11/2023 2:55 PM CDT 09/11/2023 3:26 PM CDT Narrative Authorizing Provider Result Aura Monzon M.D. LAB BLOOD ADD-ON [facility] 200 [place] [address], [facility] [address] [place] [address] * 25-Hydroxyvitamin D2 and D3 (09/11/2023 2:55 PM CDT) Pathologist [facility] 25-Hydroxy D2 <4.0 ng/mL 09/12/2023 4:44 PM CDT SDS 25-Hydroxy D3 29 ng/mL 09/12/2023 4:44 PM CDT SDSC 25-Hydroxy D Total 29 ng/mL 2023 4:44 PM CDT SDS Comment: ----REFERENCE VALUE---- 25-HYDROXY D TOTAL (D2+D3) Optimum levels in the healthy population are 20-50. ----ADDITIONAL INFORMATION---- This test was developed and its performance characteristics determined by [facility] in a manner consistent with CLIA requirements. This test has not been cleared or approved by the U.S. Food and Drug Administration. Blood (Blood, Venous) 09/11/2023 2:55 PM CDT 09/12/2023 7:05 AM CDT Narrative Authorizing Provider Result Aura Monzon M.D. LAB BLOOD ADD-ON [facility] SUPPORT [facility] [address] [place] [address] [facility] [address] DIAZ [address] [place] [address] documented in this encounter Visit Diagnoses Diagnosis Diffuse Large B Cell Lymphoma Unspecified Site (HCC) Diffuse Large B Cell Lymphoma Unspecified Site (HCC) Diffuse Large B Cell Lymphoma Unspecified Site (HCC) Diffuse Large B Cell Lymphoma Unspecified Site (HCC) documented in this encounter Care Teams Claims Consultant Relationship Specialty Start Date End Date Elsewhere, Pcp PCP - General Internal Medicine 08/21/23 documented as of this encounter
--- OUTSIDE RECORDS SUMMARY | 2023-11-20 19:26 | XMS_ITS | Encounter Summary ---
Author Organization [facility] Address [address] [place] [address] Care Team Providers Care Steel Buffer Name Role Phone Elsewhere, Pcp Primary Care Provider Unavailabl e Encounter Details Date Type Department Care Team (Latest Contact Info) Description 08/21/2023 Clinical Communication Department of Otorhinolaryngology in [place], [place] [address] [place] [address] Kendra Garcia M.D. [address] [place] [address] Social History Tobacco Use Types Packs/Day Years Used Date Smoking Tobacco: Every Day Cigarettes 1.5 81.8 Started: 02/12/1982 Smokeless Tobacco: Never Alcohol Use Standard Drinks/Week Comments Not Currently 0 (1 standard drink = 0.6 oz pur e alcohol) rarely [facility] Utilities Answer Date Recorded In the past 12 months has e [employer], gas, oil, or water company threatened to [...] your living situation today? [facility] [employer] [facility] to live 08/15/2023 [...] CDT Office Visit Department of Otorhinolaryngology in [place], [place] [address] [place] [phone] Kendra Garcia M.D. [address] [place] [phone] 11/29/2023 7:45 AM CDT Clinical Communication Virtual Review in [place], [place] 200 [place] [address] 11/30/2023 7:00 AM CDT Appointment Department of Laboratory Medicine and Pathology, [facility], in [place], [place] [address] [place] [phone] Eric Renner M.D. [address] [place] [phone] 11/30/2023 9:00 AM CDT Office Visit Division of Hematology in [place], [place] [address] [place] [address] Aníbal Reece APRN, C.N.P., M.S.N. [address] [place] [phone] 11/30/2023 12:15 PM CDT Infusion Department of Oncology in [place], [place] [address] [place] [phone] Eric Renner M.D. [address] [place] [phone] 12/20/2023 7:45 AM KITCHEN CLEANER Clinical Communication Virtual Review in [place], [place] 200 [place] [address] 12/21/2023 7:00 AM KITCHEN CLEANER Appointment Department of Laboratory Medicine and Pathology, [facility] in [place], [place] [address] [place] [phone] Eric Renner M.D. [address] [place] [phone] 12/21/2023 9:00 AM KITCHEN CLEANER Office Visit Division of Hematology in [place], [place] [address] [place] [phone] Zulma Hickey APRN, C.N.P., M.S.N. [address] [place] [phone] 12/21/2023 10:00 AM KITCHEN CLEANER Infusion Department of Oncology in [place], [place] [address] [place] [address] Eric Renner M.D. [address] [place] [phone] 01/11/2024 7:00 AM KITCHEN CLEANER Appointment Department of Laboratory Medicine and Pathology, [facility], in [place], [place] [address] [place] [address] Eric Renner M.D. [address] [place] [phone] 01/11/2024 9:00 AM KITCHEN CLEANER Office Visit Division of Hematology in [place], [place] [address] [place] [address] Susu Cameron M.D. [address] [place] [phone] 01/11/2024 10:15 AM KITCHEN CLEANER Infusion Department of Oncology in [place], [place] [address] [place] [address] Eric Renner M.D. [address] [place] [phone] 01/14/2024 9:15 AM KITCHEN CLEANER Diagnostic Department of Otorhinolaryngology in [place], [place] [address] [place] [address] Eric Renner M.D. [address] [place] [phone] Wendy Moon Au.D., C.C.C.-A [address] [place] [phone] 01/14/2024 1:00 PM KITCHEN CLEANER Diagnostic Department of Otorhinolaryngology in [place], [place] [address] [place] [address] Eric Renner M.D. [address] [place] [phone] Osiel Middleton Au.D. [address] [place] [phone] 01/14/2024 4:00 PM KITCHEN CLEANER Clinical Support Department of Otorhinolaryngology in [place], [place] [address] [place] [phone] Eric Renner M.D. [address] [place] [phone] Taj Nicolas, P.TJacquelin [address] [place] [phone] documented as of this encounter Visit Diagnoses Not on filedocumented in this encounter Care Teams Steel Buffer Relationship Specialty Start Date End Date Elsewhere, Pcp PCP - General Internal Medicine 08/21/23 documented as of this encounter
--- OUTSIDE RECORDS SUMMARY | 2023-11-20 19:26 | XMS_ITS | Encounter Summary ---
Author Organization [facility] Address 200 [place] [address] Care Team Providers Care Enrollment Counselor Name Role Phone Elsewhere, Pcp Primary Care Provider Unavailabl e Reason for Visit * MRI/CAT/PET Scan (Routine) - Closed Specialty Diagnoses / Procedures Referred By Julio t Referred To Contact Radiology Diagnoses Polyp Of Vocal Cord And Larynx Procedures CT Neck Larynx with IV Contrast CT Neck Soft Tissue with IV Contrast Kendra Garcia M.D. 200 [place] [address] [facility] Referral ID Status Reason Start Date Expiration Date Visits Re quested Visits Authorized [id number] Closed 08/22/2023 08/21/2024 1 1 Encounter Details Date Type Department Care Team (Latest Contact Info) Description 08/22/2023 12:08 PM CDT - 08/22/2023 11:59 PM CDT Hospital Encounter Department of Radiology, [facility], in [place], [place] [address] [place] [address] Kendra Garcia M.D. [address] [place] [phone] Polyp Of Vocal Cord And Larynx Discharge Disposition: Home or Self Care Social History Tobacco Use Types Packs/Day Years Used Date Smoking Tobacco: Every Day Cigarettes 1.5 81.8 Started: 02/12/1982 Smokeless Tobacco: Never Alcohol Use Standard Drinks/Week Comments Not Currently 0 (1 standard drink = 0.6 oz pur e alcohol) rarely [facility] Utilities Answer Date Recorded In the [...] your living situation today? I have a [facility] place to live 08/15/2023 Sex and [...] Indication: Acute Pain. 5 tablet 08/31/2023 09/11/2023 Ozempic 2 mg/dose (8 mg/3 mL) injection Inject 2 mg under the skin every 7 (seven) days. 07/18/2023 08/31/2023 documented as of this encounter Plan of Treatment Upcoming Encounters Date Type Department Care Team (Latest Contact Info) Description 11/28/2023 2:15 PM CDT Office Visit Department of Otorhinolaryngology in [place], [place] [address] [place] [phone] Kendra Garcia M.D. [address] [place] [phone] 11/29/2023 7:45 AM CDT Clinical Communication Virtual Review in [place], [place] 200 [place] [phone] 11/30/2023 7:00 AM CDT Appointment Department of Laboratory Medicine and Pathology, [facility], in [place], [place] [address] [place] [phone] Eric Renner M.D. [address] [place] [phone] 11/30/2023 9:00 AM CDT Office Visit Division of Hematology in [place], [place] [address] [place] [phone] Aníbal Reece APRN, C.N.P., M.S.N. [address] [place] [phone] 11/30/2023 12:15 PM CDT Infusion Department of Oncology in [place], [place] [address] [place] [phone] Eric Renner M.D. [address] [place] [phone] 12/20/2023 7:45 AM EQUIPMENT ASSOCIATE Clinical Communication Virtual Review in [place], [place] 200 [place] [address] 12/21/2023 7:00 AM EQUIPMENT ASSOCIATE Appointment Department of Laboratory Medicine and Pathology, [facility], in [place], [place] [address] [place] [phone] Eric Renner M.D. [address] [place] [phone] 12/21/2023 9:00 AM EQUIPMENT ASSOCIATE Office Visit Division of Hematology in [place], [place] [address] [place] [phone] Zulma Hickey APRN, C.N.P., M.S.N. [address] [place] [phone] 12/21/2023 10:00 AM EQUIPMENT ASSOCIATE Infusion Department of Oncology in [place], [place] [address] [place] [phone] Eric Renner M.D. [address] [place] [phone] 01/11/2024 7:00 AM EQUIPMENT ASSOCIATE Appointment Department of Laboratory Medicine and Pathology, [facility] in [place], [place] [address] [place] [address] Eric Renner M.D. [address] [place] [phone] 01/11/2024 9:00 AM EQUIPMENT ASSOCIATE Office Visit Division of Hematology in [place], [place] [address] [place] [phone] Susu Cameron M.D. [address] [place] [phone] 01/11/2024 10:15 AM EQUIPMENT ASSOCIATE Infusion Department of Oncology in [place], [place] [address] [place] [phone] Eric Renner M.D. [address] [place] [phone] 01/14/2024 9:15 AM EQUIPMENT ASSOCIATE Diagnostic Department of Otorhinolaryngology in [place], [place] [address] [place] [phone] Eric Renner M.D. [address] [place] [phone] Wendy Moon Au.D., C.C.C.-A [address] [place] [phone] 01/14/2024 1:00 PM EQUIPMENT ASSOCIATE Diagnostic Department of Otorhinolaryngology in [place], [place] [address] [place] [address] Eric Renner M.D. [address] [place] [phone] Osiel Middleton Au.D. [address] [place] [phone] 01/14/2024 4:00 PM EQUIPMENT ASSOCIATE Clinical Support Department of Otorhinolaryngology in [place], [place] [address] [place] [address] Eric Renner M.D. [address] [place] [phone] Taj Nicloas PGirish [address] [place] [phone] documented as of this encounter Procedures Procedure Name Priority Date/Time Associated Diagnosis Comments CT NECK LARYNX WITH IV CONTRAST RAD - Routine (most inpatients and all outpatients) 08/22/2023 1:07 PM CDT Polyp Of Vocal Cord And Larynx documented in this encounter Results * CT Neck Larynx with IV Contrast [...] spondylosis which is greatest at C6-7. Kendra TORIBIO CT PROCEDURES documented in this encounter Visit Diagnoses Diagnosis Polyp Of Vocal Cord And Larynx documented in this encounter Administered Medications Inactive Administered Medications - up to 3 most recent administrations Medication Order MAR Action Action Date Dose Rate Site iohexoL 300 mg iodine/mL solution 1-200 mL (Omnipaque) 1-200 mL, intravenous, Once in imaging, contrast, Starting on Sun08/22/23 at 1218, For 1 dose, Imaging Protocol Orders, Dose per Radiant Medication Guidelines Given 08/22/2023 12:39 PM CDT 120 mL sodium chloride (PF) 0.9 % injection 1-100 mL 1-100 mL, intravenous, Once, On Sun08/22/23 at 1245, For 1 dose, Imaging Protocol Orders, Dose per Radiant Medication Guidelines Given 08/22/2023 12:39 PM CDT 50 mL documented in this encounter Care Teams Enrollment Counselor Relationship Specialty Start Date End Date Elsewhere, Pcp PCP - General Internal Medicine 08/21/23 documented as of this encounter
--- OUTSIDE RECORDS SUMMARY | 2023-11-20 19:26 | XMS_ITS | Encounter Summary ---
Author Organization [facility] Address [address] [place] [address] Care Team Providers Care Municipal Maintenance Worker Name Role Phone Elsewhere, Pcp Primary Care Provider Unavailabl e Reason for Referral * Outpatient (Routine) - Closed Specialty Diagnoses / Procedures Referred By Julio faustin Referred To Contact Diagnoses Polyp Of Vocal Cord And Larynx Procedures ENT Speech therapy Kendra Garcia M.D. 200 [place] [address] [facility] Referral ID Status Reason Start Date Expiration Date Visits Re quested Visits Authorized [id number] Closed 08/31/2023 08/30/2024 1 1 * Outpatient (Routine) - Authorized Specialty Diagnoses / Procedures Referred By Julio faustin Referred To Contact Otorhinolaryngology Kendra Garcia M.D. 200 [place] [address] Kendra Garcia M.D. 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 200 [place] [address] Referral ID Status Reason Start Date Expiration Date Visits Re quested Visits Authorized [id number] 1 1 Encounter Details Date Type Department Care Team (Latest Contact Info) Description 08/31/2023 8:22 AM CDT - 08/31/2023 5:05 PM CDT Hospital Encounter [facility] [place] [address] [place] [phone] Ghulam Horowitz M.D. 200 [place] [phone] Polyp Of Vocal Cord And Larynx Discharge Disposition: Home or Self Care Social History Tobacco Use Types Packs/Day Years Used Date Smoking Tobacco: Every Day Cigarettes 1.5 81.8 Started: 02/12/1982 Smokeless Tobacco: Never Alcohol Use Standard Drinks/Week Comments Not Currently 0 (1 standard drink = 0.6 oz pur e alcohol) rarely [facility] Utilities Answer Date Recorded In the past 12 months has th e [employer], gas, oil, or water [employer] threatened to shut off services in your [...] your living situation today? I have a [facility] place to live 08/15/2023 Sex and Gender Information Value Date Recorded Sex Assigned at Female 08/15/2023 7:51 AM CDT Gender Identity Female 08/15/2023 7:51 AM CDT Sexual Orientation Straight 08/15/2023 7: 51 AM CDT documented as of this encounter Last Filed Vital Signs Vital Sign Reading Time Taken Comments Blood Pressure 118/73 08/31/2023 4:30 PM CDT Pulse 82 08/31/2023 4:40 PM CDT Temperature 36.6 ??C (97.9 ??F) 08/31/2023 4:25 PM CD T Respiratory Rate 18 08/31/2023 4:40 PM CDT Oxygen Saturation 94% 08/31/2023 4:40 PM CDT Inhaled Oxygen Concentration - - [...] encounter OR Notes * Op Note - Kendra Garcia M.D. 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 Findings As expected. Complications None Operative Note Narrative The patient was brought to the operating room and placed in the supine position. [place] protocolwas followed. Informed consent was confirmed in [...] Other concerns: none - follow-up: with me Dkaotah Garcia M.D. Chief Onsite Case Manager [facility] Dept. of Otorhinolaryngology-Head & Neck Surgery documented in this encounter Plan of Treatment Upcoming Encounters Date Type Department Care Team (Latest Contact Info) Description 11/28/2023 2:15 PM CDT Office Visit Department of Otorhinolaryngology in [address] [phone] Kendra Garcia M.D. [address] [place] [phone] 11/29/2023 7:45 AM CDT Clinical Communication Virtual Review in [place], [place] 200 [place] [phone] 11/30/2023 7:00 AM CDT Appointment Department of Laboratory Medicine and Pathology, [facility], in [address] [phone] Eric Renner M.D. [address] [place] [phone] 11/30/2023 9:00 AM CDT Office Visit Division of Hematology in [address] [phone] Aníbal Reece, FINGERNAIL SCULPTURER, C.N.P., M.S.N. [address] [place] [phone] 11/30/2023 12:15 PM CDT Infusion Department of Oncology in [place], [place] [address] [place] [phone] Eric Renner M.D. [address] [place] [phone] 12/20/2023 7:45 AM CHOKE SETTER Clinical Communication Virtual Review in [place], [place] 200 [place] [phone] 12/21/2023 7:00 AM CHOKE SETTER Appointment Department of Laboratory Medicine and Pathology, [facility] in [place], [place] [address] [place] [phone] Eric Renner M.D. [address] [place] [phone] 12/21/2023 9:00 AM CHOKE SETTER Office Visit Division of Hematology in [place], [place] [address] [place] [phone] Zulma Hickey APRN, C.N.P., M.S.N. [address] [place] [phone] 12/21/2023 10:00 AM CHOKE SETTER Infusion Department of Oncology in [place], [place] [address] [place] [phone] Eric Renner M.D. [address] [place] [phone] 01/11/2024 7:00 AM CHOKE SETTER Appointment Department of Laboratory Medicine and Pathology, [facility], in [place], [place] [address] [place] [phone] Eric Renner M.D. [address] [place] [phone] 01/11/2024 9:00 AM CHOKE SETTER Office Visit Division of Hematology in [place], [place] [address] [place] [phone] Susu Cameron M.D. [address] [place] [phone] 01/11/2024 10:15 AM CHOKE SETTER Infusion Department of Oncology in [place], [place] [address] [place] [phone] Eric Renner M.D. [address] [place] [phone] 01/14/2024 9:15 AM CHOKE SETTER Diagnostic Department of Otorhinolaryngology in [place], [place] [address] [place] [phone] Eric Renner M.D. [address] [place] [phone] Wendy Moon Au.D., C.C.CJacquelin-Grecia [address] [place] [phone] 01/14/2024 1:00 PM CHOKE SETTER Diagnostic Department of Otorhinolaryngology in [place], [place] [address] [place] [phone] Eric Renner M.D. [address] [place] [phone] Osiel Middleton Au.D. [address] [place] [phone] 01/14/2024 4:00 PM CHOKE SETTER Clinical Support Department of Otorhinolaryngology in [place], [place] [address] [place] [phone] Eric Renner M.D. 200 [place] [phone] Taj Nicolas P.T. 200 [place] [address] Scheduled Referrals Name Type Priority Associated Diagnoses [...] Of Vocal Cord And Larynx Case Notes FIREWORKS INSPECTOR at 8:26 documented in this encounter Results [...] permanent sections. ??Grossed by Marlon Art, P.A. ([facility]). B. ??Received fresh labeled right true vocal [...] SURG PATH ORDERA BLES Performing Organization Address City/State/[facility] Co de Phone Number [facility] [address] [place] [address], [facility] [address] [facility] [address] [place] [address] * Glucose, POCT (08/31/2023 3:07 PM CDT) Glucose, POCT, B 102 70 - 140 mg/dL 08/31/2023 3:11 PM CDT PCSM Site Capillary 08/31/2023 3:11 PM CDT PCSM Blood 08/31/2023 3:07 PM CDT 08/31/2023 3:11 PM CDT Unknown Provider LAB POCT ORDERABLES- MANUAL POC [facility] [address] [place] [address], [facility] POC [address] [place] [address] documented in this encounter Visit Diagnoses Diagnosis Polyp Of Vocal Cord And Larynx- Primary documented in this encounter Admitting Diagnoses Diagnosis [...] Given 08/31/2023 1:32 PM CDT 3 mL documented in this encounter Active and Recently Administered Medications Times are shown in CDT. Scheduled Medication Order 08/29/2023 08/30/2023 08/31/2023 acetaminophen tablet 1,000 mg (TylenoL) (COMPLETED) 1,000 mg, oral, Once, On Sun08/31/23 at 1230, For 1 dose, Pre-Op 1219 (Given - Provid er: Francia Francis R.N.) ceFAZolin injection 2,000 mg (Ancef) (COMPLETED) 2,000 [...] and drug clearance factors., Indications: Prophylaxis, surgical 5582 (Given - Provid er: Melanie Jones, FINGERNAIL SCULPTURER, ANESTHESIOLOGY FELLOW, DNAP) ipratropium-albuteroL 0.5-2.5 mg/3 mL nebulizer solution 3 mL (DuoNeb) (COMPLETED) 3 mL, nebulization, Once, On Sun08/31/23 at 1230, For 1 dose, Pre-Op 1332 (Given - Provid er: Zulma Cameron R.N.) sodium chloride 0.9 % injection 3 [...] injection documented in this encounter Care Teams Municipal Maintenance Worker Relationship Specialty Start Date End Date Elsewhere, Pcp PCP - General Internal Medicine 08/21/23 documented as of this encounter
--- OUTSIDE RECORDS SUMMARY | 2023-11-20 19:26 | XMS_ITS | Encounter Summary ---
Author Organization [facility] Address [address] [place] [address] Care Team Providers Care Ict Developer Name Role Phone Elsewhere, Pcp Primary Care Provider Unavailabl e Encounter Details Date Type Department Care Team (Late st Contact Info) Description 08/30/2023 Documentation Department of Orthopedic Surgery in [place], [place] [address] [place] [address] Jose Zhang M.D. [address] [place] [address] Social History Tobacco Use Types Packs/Day Years Used Date Smoking Tobacco: Every Day Cigarettes 1.5 81.8 Started: 02/12/1982 Smokeless Tobacco: Never Alcohol Use Standard Drinks/Week Comments Not Currently 0 (1 standard drink = 0.6 oz pur e alcohol) rarely C Utilities Answer Date Recorded In the past 12 months has e [employer], gas, oil, or water [employer] threatened to shut off services in your [...] your living situation today? I have a [facility] place to live 08/15/2023 Sex and Gender Information Value Date Recorded Sex Assigned at Female 08/15/2023 7:51 AM CDT Gender Identity Female 08/15/2023 7:51 AM CDT Sexual Orientation Straight 08/15/2023 7: 51 AM CDT documented as of this encounter Progress Notes * Jose Zhang M.D. - 08/30/2023 2:15 PM CDT I called Ms. Fuller to go over the results of her biopsy with her. 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 We discuss that treatment for this is directed by Hematology. We will place orders for her to be evaluated by our hematology team to discuss her care moving forward. Multiple questions were answered to the best of our ability and she understands that the Hematology team we will be directing her care moving forward. We will always be available to assist in any way possible. documented in this encounter Plan of Treatment Upcoming Encounters Date Type Department Care Team (Latest Contact Info) Description 11/28/2023 2:15 PM CDT Office Visit Department of Otorhinolaryngology in [place], [place] [address] [place] [address] Kendra Garcia M.D. [address] [place] [phone] 11/29/2023 7:45 AM CDT Clinical Communication Virtual Review in [place], [place] 200 [place] [address] 11/30/2023 7:00 AM CDT Appointment Department of Laboratory Medicine [facility], [facility] [place] [place] [address] [place] [phone] Eric Renner M.D. [address] [place] [phone] 11/30/2023 9:00 AM CDT Office Visit Division of Hematology in [place], [place] [address] [place] [phone] Aníbal Reece, FAVIOLA, C.N.P., M.S.N. [address] [place] [phone] 11/30/2023 12:15 PM CDT Infusion Department of Oncology in [place], [place] [address] [place] [phone] Eric Renner M.D. [address] [place] [phone] 12/20/2023 7:45 AM LUMBER HANDLER Clinical Communication Virtual Review in [place], [place] 200 [place] [address] 12/21/2023 7:00 AM LUMBER HANDLER Appointment Department of Laboratory Medicine and Pathology, [facility], in [place], [place] [address] [place] [phone] Eric Renner M.D. [address] [place] [phone] 12/21/2023 9:00 AM LUMBER HANDLER Office Visit Division of Hematology in [place], [place] [address] [place] [address] Zulma Hickey APRN, C.N.P., M.S.N. [address] [place] [phone] 12/21/2023 10:00 AM LUMBER HANDLER Infusion Department of Oncology in [place], [place] [address] [place] [phone] Eric Renner M.D. [address] [place] [phone] 01/11/2024 7:00 AM LUMBER HANDLER Appointment Department of Laboratory Medicine and Pathology, [facility] [place], [place] [address] [place] [phone] Eric Renner M.D. [address] [place] [phone] 01/11/2024 9:00 AM LUMBER HANDLER Office Visit Division of Hematology in [place], [place] [address] [place] [phone] Susu Cameron M.D. [address] [place] [phone] 01/11/2024 10:15 AM LUMBER HANDLER Infusion Department of Oncology in [place], [place] [address] [place] [address] Eric Renner M.D. [address] [place] [phone] 01/14/2024 9:15 AM LUMBER HANDLER Diagnostic Department of Otorhinolaryngology in [place], [place] [address] [place] [phone] Eric Renner M.D. [address] [place] [phone] Wendy Moon Au.D., C.CJacquelinCJacquelin-A [address] [place] [phone] 01/14/2024 1:00 PM LUMBER HANDLER Diagnostic Department of Otorhinolaryngology in [place], [place] [address] [place] [phone] Eric Renner M.D. [address] [place] [phone] Osiel Middleton Au.D. [address] [place] [phone] 01/14/2024 4:00 PM LUMBER HANDLER Clinical Support Department of Otorhinolaryngology in [place], [place] [address] [place] [phone] Eric Renner M.D. [address] [place] [phone] Taj Nicolas, P.TJacquelin [address] [place] [phone] documented as of this encounter Visit Diagnoses Not on filedocumented in this encounter Care Teams Ict Developer Relationship Specialty Start Date End Date Elsewhere, Pcp PCP - General Internal Medicine 08/21/23 documented as of this encounter
--- OUTSIDE RECORDS SUMMARY | 2023-11-20 19:26 | XMS_ITS | Encounter Summary ---
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 200 [place] [address] [facility] Referral ID Status Reason Start Date Expiration Date Visits Re quested Visits Authorized [id number] Closed 08/30/2023 02/28/2025 1 1 Encounter Details Date Type Department Care Team (Late st Contact Info) Description 08/30/2023 Orders Only Department of Orthopedic Surgery in [place], [place] [address] [place] [phone] Jose Zhang M.D. 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 I have a [facility] place to live 08/15/2023 Sex [...] CDT Office Visit Department of Otorhinolaryngology in [place], [place] [address] [place] [address] Kendra Garcia M.D. [address] [place] [address] 11/29/2023 7:45 AM CDT Clinical Communication Virtual Review in [place], [place] 200 [place] [address] 11/30/2023 7:00 AM CDT Appointment Department of Laboratory Medicine and Pathology, [facility] in [place], [place] [address] [place] [phone] Eric Renner M.D. [address] [place] [phone] 11/30/2023 9:00 AM CDT Office Visit Division of Hematology in [place], [place] [address] [place] [phone] Aníbal Reece, FAVIOLA, C.N.P., M.S.N. [address] [place] [phone] 11/30/2023 12:15 PM CDT Infusion Department of Oncology in [place], [place] [address] [place] [phone] Eric Renner M.D. [address] [place] [phone] 12/20/2023 7:45 AM ARMAMENT REPAIRER Clinical Communication Virtual Review in [place], [place] 200 [place] [address] 12/21/2023 7:00 AM ARMAMENT REPAIRER Appointment Department of Laboratory Medicine and Pathology, [facility], in [place], [place] [address] [place] [phone] Eric Renner M.D. [address] [place] [phone] 12/21/2023 9:00 AM ARMAMENT REPAIRER Office Visit Division of Hematology in [place], [place] [address] [place] [phone] Zulma Hickey APRN, C.N.P., M.S.N. [address] [place] [phone] 12/21/2023 10:00 AM ARMAMENT REPAIRER Infusion Department of Oncology in [place], [place] [address] [place] [address] Eric Renner M.D. [address] [place] [phone] 01/11/2024 7:00 AM ARMAMENT REPAIRER Appointment Department of Laboratory Medicine and Pathology, [facility] in [place], [place] [address] [place] [phone] Eric Renner M.D. [address] [place] [phone] 01/11/2024 9:00 AM ARMAMENT REPAIRER Office Visit Division of Hematology in [place], [place] [address] [place] [phone] Susu Cameron M.D. [address] [place] [phone] 01/11/2024 10:15 AM ARMAMENT REPAIRER Infusion Department of Oncology in [place], [place] [address] [place] [phone] Eric Renner M.D. [address] [place] [phone] 01/14/2024 9:15 AM ARMAMENT REPAIRER Diagnostic Department of Otorhinolaryngology in [place], [place] [address] [place] [phone] Eric Renner M.D. [address] [place] [phone] Wendy Moon Au.D., C.C.C.-A [address] [place] [phone] 01/14/2024 1:00 PM ARMAMENT REPAIRER Diagnostic Department of Otorhinolaryngology in [place], [place] [address] [place] [phone] Eric Renner M.D. [address] [place] [phone] Osiel Middleton Au.D. [address] [place] [phone] 01/14/2024 4:00 PM ARMAMENT REPAIRER Clinical Support Department of Otorhinolaryngology in [place], [place] [address] [place] [phone] Eric Renner M.D. 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
--- OUTSIDE RECORDS SUMMARY | 2023-11-20 19:26 | XMS_ITS | Encounter Summary ---
Author Organization [facility] Address [address] [place] [address] Care Team Providers Care Chart Reader Name Role Phone Elsewhere, Pcp Primary Care Provider Unavailabl e Reason for Referral * Outpatient (Routine) - Closed Specialty Diagnoses / Procedures Referred By Julio faustin Referred To Contact Diagnoses Polyp Of Vocal Cord And Larynx Procedures ECG 12 Lead Kendra Garcia M.D. [address] [place] [address] [facility] Referral ID Status Reason Start Date Expiration Date Visits Re quested Visits Authorized [id number] Closed 08/22/2023 08/21/2024 1 1 Reason for Visit * Reason Comments Dysphonia * Outpatient (Routine) - Closed Specialty Diagnoses / Procedures Referred By Julio faustin Referred To Contact Otorhinolaryngology Diagnoses Polyp Of Vocal Cord And Larynx Guanakito Wills M.D. [address] [place] [address] [facility] Referral ID Status Reason Start Date Expiration Date Visits Re quested Visits Authorized [id number] Closed 05/08/2023 11/06/2024 1 1 Encounter Details Date Type Department Care Team (Latest Contact Info) Description 08/22/2023 9:30 AM CDT Comprehensive Visit Department of Otorhinolaryngology in [place], [place] 200 [place] [phone] Kendra Garcia M.D. [address] [place] [address] Polyp Of Vocal Cord And Larynx Social History Tobacco Use Types Packs/Day Years Used Date Smoking Tobacco: Every Day Cigarettes 1.5 81.8 Started: 02/12/1982 Smokeless Tobacco: Never Alcohol Use Standard Drinks/Week Comments Not Currently 0 (1 standard drink = 0.6 oz pur e alcohol) rarely [facility] Utilities Answer Date Recorded In [...] your living situation today? I have a [facility] place to live 08/15/2023 Sex and Gender Information Value Date Recorded Sex Assigned at Female 08/15/2023 7:51 AM CDT Gender Identity Female 08/15/2023 7:51 AM CDT Sexual Orientation Straight 08/15/2023 7: 51 AM CDT documented as of this encounter Consult Notes * Kendra Garcia M.D. - 08/22/2023 9:30 AM CDT Images from the original note were not included. [facility] Referring provider: Guanakito Wills M.D. CHIEF COMPLAINT Hoarseness HISTORY OF PRESENT ILLNESS Ms. Fuller is a 53 y.o. year old woman presenting in consultation at the request of Guanakito Wills M.D. for evaluation of hoarseness. This is a 53-year-old female with a 40 pack year history of smoking, presenting with dysphonia for over 10 to 15 years. She was previously seen by a local dovetailer who noted polypoid change of her vocal cords in 2008 or 2009. Surgical intervention was recommended, but she was unable to quitsmoking and did not undergo polyp removal. She now presents with worsening dysphonia and vocal strain. 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 A vocal cord biopsy was recommended. She presented here today for further evaluation and recommendations for management. The following portions of the patient's history were reviewed and updated as appropriate: allergies, current medications, family history, medical history, social history, surgical history, and problem list. Encounter review of systems was reviewed and pertinent responses are noted in the history. Social History Tobacco Use Smoking status: Every Day Current packs/day: 1.50 Average packs/day: 1.5 packs/day for 81.5 years (122.3 ttl pk-yrs) Types: Cigarettes Start date: 02/12/1982 Smokeless tobacco: Never Vaping Use Vaping status: never used Substance Use Topics Alcohol use: Not Currently Comment: rarely Drug use: Never PHYSICAL EXAMINATION Gen: Resting comfortably in no acute distress. Alert and oriented. No stridor or increased respiratory effort. Conversational voice is raspy and strained with a rough quality. Maximal phonation time is less than 10 seconds. ENT Ears: Externally normal in appearance, without scars, lesions, or masses. Nose: Externally normal in appearance. The mucosa is pink, the septum is midline, and the visible turbinates are normal on anterior rhinoscopy. Oral cavity: Mandibular simi are absent Dentition is present. No concerning lesions Oropharynx: Clear and free of masses or lesions. Neck: Supple without lymphadenopathy or thyromegaly. Thyrohyoid space is tight as in tender Neuro:Cranial nerves grossly intact. Skin: No incisions or scars in the neck. Flexible laryngoscopy: Verbal consent obtained and universal protocol followed. In order to evaluate the chief complaint, a flexible laryngoscopy was performed as a separate identifiable procedure. Two percent lidocaine with phenylephrine was instilled into the right and left nares. The flexible scope was passed. The larynx was examined, specifically the supraglottis, true vocal folds, and subglottis. Vocal fold adduction and abduction were assessed. The true vocal folds, arytenoids, and interarytenoid spaces were closely visualized to confirm presence or absence of erythema, edema, or structural lesions. Videostroboscopy was also performed to evaluate the vibratory potential and closure patterns of thetrue vocal folds. Mucosal wave and amplitude were assessed for symmetry. Periodicity and glottic closure were evaluated. The scope was removed. Specific findings: The patient's supraglottis was notable for supraglottic squeeze. The arytenoids were mobile on abduction and adduction. The mucosal wave was significantly distorted. There was notable leukoplakic post exchange manager the anterior 2/3 of the right vocal cord in the posterior third of the left true vocal fold. There was a view into the subglottis which was widely patent. IMPRESSION 1. Polyp Of Vocal Cord And Larynx 53 y.o. year old woman presenting with hoarseness. Assessment/plan: Ana Fuller is a 53 y.o. 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 The differential includes dysplasia (mild, moderate, or severe) and invasive squamous cell carcinoma, with infectious etiology such as fungal or bacterial laryngitis being lower on the list due to her extensive smoking history. The plan is to proceedwith a vocal cord biopsy in the operating room. Smoking cessation is strongly encouraged both before and after surgery to improve wound healing and prevent worsening of dysphonia and vocal strain. The patient understands the importance of quitting smoking and is aware of available smoking cessationclinics. Risks and benefits of direct laryngoscopy and biopsy were discussed. If the lesion is benign, a decision will be made to either end the case or work to reduce the polypoid corditis, with the expectation that the patient will quit smoking to allow her vocal cords to heal. Vocal rest for five to seven days will be required should she wish to proceed with surgical debulking of her polypoid corditis.If the lesion shows dysplasia, it will be removed during surgery. If invasive squamous cell carcinoma is found, the extent of the disease will determine the course of action, which may include chemotherapy, radiation, or surgery (if limited to a small are on the cords). A CT of the larynx will be ob tained for better evaluation of the larynx and potential neck disease. All questions were welcomed and addressed to the best of my abilities. PLAN I reviewed the exam with the patient and explained the findings. PATIENT EDUCATION Ready to learn, no apparent learning barriers were identified; learning preferences include listening. Explained diagnosis and treatment plan; patient expressed understanding of the content. documented in this encounter Plan of Treatment Upcoming Encounters Date Type Department Care Team (Latest Contact Info) Description 11/28/2023 2:15 PM CDT Office Visit Department of Otorhinolaryngology in [address] [phone] Kendra Garcia M.D. [address] [place] [phone] 11/29/2023 7:45 AM CDT Clinical Communication Virtual Review in [place], [place] [address] [place] [address] 11/30/2023 7:00 AM CDT Appointment Department of Laboratory Medicine and Pathology, [facility], in [address] [phone] Eric Renner M.D. [address] [place] [phone] 11/30/2023 9:00 AM CDT Office Visit Division of Hematology in [address] [place] [address] Aníbal Reece APRN, Yassine.N.P., M.S.N. [address] [place] [phone] 11/30/2023 12:15 PM CDT Infusion Department of Oncology in [place], [place] [address] [place] [phone] Eric Renner M.D. [address] [place] [phone] 12/20/2023 7:45 AM DIRECT SUPPORT PROFESSIONAL Clinical Communication Virtual Review in [place], [place] 200 [place] [address] 12/21/2023 7:00 AM DIRECT SUPPORT PROFESSIONAL Appointment Department of Laboratory Medicine and Pathology, [facility] in [place], [place] [address] [place] [phone] Eric Renner M.D. [address] [place] [phone] 12/21/2023 9:00 AM DIRECT SUPPORT PROFESSIONAL Office Visit Division of Hematology in [place], [place] [address] [place] [phone] Zulma Hickey APRN, C.N.P., M.S.N. [address] [place] [phone] 12/21/2023 10:00 AM DIRECT SUPPORT PROFESSIONAL Infusion Department of Oncology in [place], [place] [address] [place] [phone] Eric Renner M.D. [address] [place] [phone] 01/11/2024 7:00 AM DIRECT SUPPORT PROFESSIONAL Appointment Department of Laboratory Medicine and Pathology, [place], in [place], [place] [address] [place] [address] Eric Renner M.D. [address] [place] [phone] 01/11/2024 9:00 AM DIRECT SUPPORT PROFESSIONAL Office Visit Division of Hematology in [place], [place] [address] [place] [phone] Susu Cameron M.D. [address] [place] [phone] 01/11/2024 10:15 AM DIRECT SUPPORT PROFESSIONAL Infusion Department of Oncology in [place], [place] [address] [place] [phone] Eric Renner M.D. [address] [place] [phone] 01/14/2024 9:15 AM DIRECT SUPPORT PROFESSIONAL Diagnostic Department of Otorhinolaryngology in [place], [place] [address] [place] [phone] Eric Renner M.D. [address] [place] [phone] Wendy Moon Au.D., C.C.CJacquelin-A [address] [place] [phone] 01/14/2024 1:00 PM DIRECT SUPPORT PROFESSIONAL Diagnostic Department of Otorhinolaryngology in [place], [place] [address] [place] [phone] Eric Renner M.D. [address] [place] [phone] Osiel Middleton Au.D. [address] [place] [phone] 01/14/2024 4:00 PM DIRECT SUPPORT PROFESSIONAL Clinical Support Department of Otorhinolaryngology in [place], [place] [address] [place] [phone] Eric Renner M.D. [address] [place] [phone] Taj Nicolas PGirish [address] [place] [phone] documented as of this encounter Results * ECG 12 Lead (08/22/2023 2:40 PM CDT) Ventricular Rate ECG/Min 117 BPM MUSE DE Interval 120 ms MUSE QRSD Interval 78 ms MUSE QT Interval 342 ms MUSE QTC Interval 477 ms MUSE P [place] 57 degrees MUSE R [place] 87 degrees MUSE T Wave [place] 40 degrees MUSE 08/22/2023 2:40 PM CDT [...] Kendra Garcia M.D. ECG ORDERABLES MUSE NA documented in this encounter Visit Diagnoses Diagnosis Polyp Of Vocal Cord And Larynx documented in this encounter Care Teams Chart Reader Relationship Specialty Start Date End Date Elsewhere, Pcp PCP - General Internal Medicine 08/21/23 documented as of this encounter
--- OUTSIDE RECORDS SUMMARY | 2023-11-20 19:26 | XMS_ITS | Encounter Summary ---
Author Organization [facility] Address [address] [place] [address] Care Team Providers Care Powerhouse Tender Name Role Phone Elsewhere, Pcp Primary Care Provider Unavailabl e Reason for Visit * Outpatient (Routine) - Closed Specialty Diagnoses / Procedures Referred By Contac t Referred To Contact Otorhinolaryngology Diagnoses Polyp Of Vocal Cord And Larynx Guanakito Wills M.D. [address] [place] [address] [facility] Referral ID Status Reason Start Date Expiration Date Visits Re quested Visits Authorized [id number] Closed 05/08/2023 11/06/2024 1 1 Encounter Details Date Type Department Care Team (Latest Contact Info) Description 08/22/2023 10:00 AM CDT Comprehensive Visit Department of Otorhinolaryngology in [place], [place] [address] [place] [address] Caridad Cardozo, Ph.D. [address] [place] [address] Polyp Of Vocal Cord And Larynx (Primary Dx) Social History Tobacco Use Types [...] your living situation today? I have a [facility] place to live 08/15/2023 Sex and Gender Information Value Date Recorded Sex Assigned at Female 08/15/2023 7:51 AM CDT Gender Identity Female 08/15/2023 7:51 AM CDT Sexual Orientation Straight 08/15/2023 7: 51 AM CDT documented as of this encounter Consult Notes * Caridad Cardozo, Ph.D. - 08/22/2023 10:00 AM CDT DATE OF VISIT: 08/22/23 Referring provider: Guanakito Wills M.D. REASON FOR VISIT: Dysphonia HISTORY OF PRESENT ILLNESS Ana Fuller is a 53 y.o. year old woman with longstanding dysphonia and longstanding smoking. Her local ear nose and throat physician sent her to [facility] and told her that she would likely need abiopsy. She had been told many years ago that she had polyps and would need surgery but the surgeonwanted her to stop smoking for at least 8 months prior to surgery. She never stopped smoking and never followed up at that time. Her voice has worsened over the past year. PHYSICAL EXAMINATION I. Phonation: Phonatory quality during connected speech is rough hoarse +3. Sustained phonation is rough hoarse +3. She does report some pain at times especially if she smokes a great deal and a given day. She typically smokes a pack and a half per day. II. Patient Self-Assessment: Please see flow sheets for answers to questionnaires III. Videostrobolaryngoscopy Description: To assess structure and function of the larynx and vocal folds relative to the patient's chief complaint, flexible laryngoscopy with videostroboscopy was performed as a separate procedure. Verbal consent was obtained, universal protocol was followed. Lidocaine and phenylephrine were instilled into the right and/or left nostril(s). Olympus chip tip scope was passed and larynx visualized. Upon completion,scope was removed and patient tolerated the procedure well. IIIa. Videostrobolaryngoscopy Specific Findings: Vocal folds are mobile bilaterally with full abduction during sniff and adduction during phonation. Vocal fold edges quite irregular and reddish in the parents. She does appear to have some abnormal vascularity and whitish material on the underside of the vocal folds. She has no mucosal waveforms and poor amplitude of vibration. She so dysphonic itwas difficult for the stroboscopy to track but we were able to get some sections of stroboscopy that were able to track her vocal fold vibration.. IMPRESSION, REPORT, PLAN Ana Fuller has a significant dysphonia and needs further workup to understand the underlying etiology of her voice disorder. Voice therapy is not likely to be helpful at this time. I spent time educating her on the difference of normal and abnormal vocal folds and reviewed her endoscopy in detail with her. She also saw who will follow up with her for additional testing as needed. DIAGNOSIS #1 Dysphonia #2 Polypoid changes to the vocal folds PATIENT EDUCATION Ready to learn, no apparent learning barriers identified; learning preferences include listening. Diagnosis and treatment plan explained; opportunity to ask questions given; patient expressed understanding of content. This note was partially constructed using [employer] Direct speech recognition medical dictation system. All attempts have been made to review for accuracy; although, some nonsensical information may persist despite proofreading. documented in this encounter Plan of Treatment Upcoming Encounters Date Type Department Care Team (Latest Contact Info) Description 11/28/2023 2:15 PM CDT Office Visit Department of Otorhinolaryngology in [address] [phone] Kendra Garcia M.D. [address] [place] [phone] 11/29/2023 7:45 AM CDT Clinical Communication Virtual Review in [place], [place] [address] [place] [address] 11/30/2023 7:00 AM CDT Appointment Department of Laboratory Medicine and Pathology, [facility], in [place], [place] [address] [place] [phone] Eric Renner M.D. [address] [place] [phone] 11/30/2023 9:00 AM CDT Office Visit Division of Hematology in [address] [phone] Aníbal Reece, METAL ROOM DENTAL TECHNICIAN, C.N.P., M.S.N. [address] [place] [phone] 11/30/2023 12:15 PM CDT Infusion Department of Oncology in [place], [place] [address] [place] [phone] Eric Renner M.D. [address] [place] [phone] 12/20/2023 7:45 AM SUPERINTENDENT GENERATING PLANT Clinical Communication Virtual Review in [place], [place] [address] [place] [address] 12/21/2023 7:00 AM SUPERINTENDENT GENERATING PLANT Appointment Department of Laboratory Medicine and Pathology, [facility] in [place], [place] [address] [place] [phone] Eric Renner M.D. [address] [place] [phone] 12/21/2023 9:00 AM SUPERINTENDENT [employer]ATING [employer]ANT Office Visit Division of Hematology in [place], [place] [address] [place] [phone] Zulma Hickey APRN, C.N.P., M.S.N. [address] [place] [phone] 12/21/2023 10:00 AM SUPERINTENDENT [employer]ATING PLANT Infusion Department of Oncology in [place], [place] [address] [place] [phone] Eric Renner M.D. [address] [place] [phone] 01/11/2024 7:00 AM SUPERINTENDENT GENERATING PLANT Appointment Department of Laboratory Medicine and Pathology, [facility], in [place], [place] [address] [place] [phone] Eric Renner M.D. [address] [place] [phone] 01/11/2024 9:00 AM SUPERINTENDENT GENERATING [employer]ANT Office Visit Division of Hematology in [place], [place] [address] [place] [phone] Susu Cameron M.D. [address] [place] [phone] 01/11/2024 10:15 AM SUPERINTENDENT [employer]ATING [employer]ANT Infusion Department of Oncology in [place], [place] [address] [place] [phone] Eric Renner M.D. [address] [place] [phone] 01/14/2024 9:15 AM SUPERINTENDENT [employer]ANT Diagnostic Department of Otorhinolaryngology in [place], [place] [address] [place] [phone] Eric Renner M.D. [address] [place] [phone] Wendy Moon Au.D., C.CJacquelinCJacquelin-A [address] [place] [phone] 01/14/2024 1:00 PM SUPERINTENDENT [employer]ATING PLANT Diagnostic Department of Otorhinolaryngology in [place], [place] [address] [place] [phone] Eric Renner M.D. [address] [place] [phone] Osiel Middleton Au.D. [address] [place] [phone] 01/14/2024 4:00 PM SUPERINTENDENT [employer] Clinical Support Department of Otorhinolaryngology in [place], [place] [address] [place] [phone] Eric Renner M.D. [address] [place] [phone] Taj Nicolas, P.TJacquelin [address] [place] [phone] documented as of this encounter Visit Diagnoses Diagnosis Polyp Of Vocal Cord And Larynx- Primary documented in this encounter Care Teams Powerhouse Tender Relationship Specialty Start Date End Date Elsewhere, Pcp PCP - General Internal Medicine 08/21/23 documented as of this encounter
--- OUTSIDE RECORDS SUMMARY | 2023-11-20 19:26 | XMS_ITS | Encounter Summary ---
Author Organization [facility] Address [address] [place] [address] Care Team Providers Care Cytology Supervisor Name Role Phone Elsewhere, Pcp Primary Care Provider Unavailabl e Encounter Details Date Type Department Care Team (Latest Contact Info) Description 08/22/2023 8:21 AM CDT - 08/22/2023 12:07 PM CDT Hospital Encounter Department of Laboratory Medicine and Pathology, [facility] in [place], [place] [address] [place] [address] Jose Zhang M.D. [address] [place] [address] Tumor Bone Discharge Disposition: Home or Self Care Social History Tobacco Use Types Packs/Day Years Used Date Smoking Tobacco: Every Day Cigarettes 1.5 81.8 Started: 02/12/1982 Smokeless Tobacco: Never Alcohol Use Standard Drinks/Week Comments Not Currently 0 (1 standard drink = 0.6 oz pur e alcohol) rarely [facility] Utilities Answer Date Recorded In the past 12 months has e Booster, gas, oil, or water [employer] threatened to shut off services in your [...] your living situation today? I have a [facility] place to live 08/15/2023 Sex and Gender [...] CDT Office Visit Department of Otorhinolaryngology in [place], [place] [address] [place] [phone] Kendra Garcia M.D. [address] [place] [phone] 11/29/2023 7:45 AM CDT Clinical Communication Virtual Review in [place], [place] [address] [place] [address] 11/30/2023 7:00 AM CDT Appointment Department of Laboratory Medicine and Pathology, [facility], in [place], [place] [address] [place] [phone] Eric Renner M.D. [address] [place] [phone] 11/30/2023 9:00 AM CDT Office Visit Division of Hematology in [place], [place] [address] [place] [phone] Aníbal Reece APRN, Yassine.N.Ad., M.S.N. [address] [place] [phone] 11/30/2023 12:15 PM CDT Infusion Department of Oncology in [place], [place] [address] [place] [phone] Eric Renner M.D. [address] [place] [phone] 12/20/2023 7:45 AM RECREATION COUNSELOR Clinical Communication Virtual Review in [place], [place] [address] [place] [address] 12/21/2023 7:00 AM RECREATION COUNSELOR Appointment Department of Laboratory Medicine and Pathology, [facility] in [place], [place] [address] [place] [phone] Eric Renner M.D. [address] [place] [phone] 12/21/2023 9:00 AM RECREATION COUNSELOR Office Visit Division of Hematology in [address] [phone] Zulma Hickey APRN, C.N.Ad., M.S.N. [address] [place] [phone] 12/21/2023 10:00 AM RECREATION COUNSELOR Infusion Department of Oncology in [place], [place] [address] [place] [phone] Eric Renner M.D. [address] [place] [phone] 01/11/2024 7:00 AM RECREATION COUNSELOR Appointment Department of Laboratory Medicine and Pathology, [facility] in [place], [place] [address] [place] [address] Eric Renner M.D. [address] [place] [phone] 01/11/2024 9:00 AM RECREATION COUNSELOR Office Visit Division of Hematology in [place], [place] [address] [place] [address] Susu Cameron M.D. [address] [place] [phone] 01/11/2024 10:15 AM RECREATION COUNSELOR Infusion Department of Oncology in [place], [place] [address] [place] [address] Eric Renner M.D. [address] [place] [phone] 01/14/2024 9:15 AM RECREATION COUNSELOR Diagnostic Department of Otorhinolaryngology in [place], [place] [address] [place] [address] Eric Renner M.D. [address] [place] [phone] Wendy Moon Au.D., C.C.CJacquelin-A [address] [place] [phone] 01/14/2024 1:00 PM RECREATION COUNSELOR Diagnostic Department of Otorhinolaryngology in [place], [place] [address] [place] [phone] Eric Renner M.D. [address] [place] [phone] Osiel Middleton Au.D. [address] [place] [phone] 01/14/2024 4:00 PM RECREATION COUNSELOR Clinical Support Department of Otorhinolaryngology in [place], [place] [address] [place] [phone] Eric Renner M.D. [address] [place] [phone] Taj Nicolas, PGirish [address] [place] [phone] documented as of this encounter Procedures Procedure Name Priority Date/Time Associated Diagnosis Comments C-REACTIVE PROTEIN (CRP), S/P Routine 08/22/2023 8:49 AM CDT Tumor Bone LACTATE DEHYDROGENASE (LD), S Routine 08/22/2023 8:49 AM CDT Tumor Bone NHHA-8-YJPTEVBRCEUSL (BETA-2-M), S Routine 08/22/2023 8:49 AM CDT Tumor Bone COMPREHENSIVE METABOLIC PANEL, S/P Routine 08/22/2023 8:49 AM CDT Tumor Bone IMMUNOGLOBULIN FREE LIGHT CHAINS, S Routine 08/22/2023 8:48 AM CDT Tumor Bone SEDIMENTATION RATE, B Routine 08/22/2023 8:48 AM CDT Tumor Bone CBC WITH DIFFERENTIAL, B Routine 08/22/2023 8:48 AM CDT Tumor Bone documented in this encounter Results * (ABNORMAL) LD (Lactate Dehydrogenase) (08/22/2023 8:49 AM CDT) Lactate Dehydrogenase (LD), S 281(H) 122 - 222 U/L 08/22/2023 9:51 AM CDT DTL Blood (Blood, Venous) 08/22/2023 8:49 AM CDT 08/22/2023 9:25 AM CDT Jose Zhang M.D. LAB BLOOD NON ADD- ON Performing Organization Address City/[facility]/ZIP Co de Phone Number [facility] [address] [place] [address], [facility] [address] [place] [address] * (ABNORMAL) CRP (C-Reactive Protein) (08/22/2023 8:49 AM CDT) C-Reactive Protein (CRP), S 12.6(H) <5.0 mg/L 08/22/2023 9:51 AM CDT DTL Blood (Blood, Venous) 08/22/2023 8:49 AM CDT 08/22/2023 9:25 AM CDT Jose Zhang M.D. LAB BLOOD ADD-ON Performing Organization Address [facility] Co de Phone Number [facility] [address] [place] [address], [facility] [address] [place] [address] * (ABNORMAL) Comprehensive Metabolic Panel (08/22/2023 8:49 AM CDT) Potassium, S 4.9 3.6 - 5.2 mmol/L 08/22/2023 9:51 AM CDT DTL Sodium, S 143 135 - 145 mmol/L 08/22/2023 9:51 AM CDT DTL Chloride, S 103 98 - 107 mmol/L 08/22/2023 9:51 AM CDT DTL Bicarbonate, S 26 22 - 29 mmol/L 08/22/2023 9:51 AM CDT DTL Anion Gap 14 7 - 15 08/22/2023 9:51 AM CDT DTL BUN (Blood Urea Nitrogen), S 13 6 - 21 mg/dL 08/22/2023 9:51 AM CDT DTL Creatinine 0.88 0.59 - 1.04 mg/dL 08/22/2023 9:51 AM CDT DTL Estimated GFR (eGFR) 78 >=60 mL/min/BS A 08/22/2023 9:51 AM CDT DTL Comment: Estimated GFR calculated using the 2020 CKD_EPI creatinine equation. Calcium, Total, S 10.1(H) 8.6 - 10.0 mg/dL 08/22/2023 9:51 AM CDT DTL Glucose, S 108 70 - 140 mg/dL 08/22/2023 9:51 AM CDT DTL Protein, Total, S 7.1 6.3 - 7.9 g/dL 08/22/2023 9:51 AM CDT DTL Albumin, S 4.4 3.5 - 5.0 g/dL 08/22/2023 9:51 AM CDT DTL Aspartate Aminotransferase (AST), S 16 8 - 43 U/L 08/22/2023 9:51 AM CDT DTL Alkaline Phosphatase, S 116(H) 35 - 104 U/L 08/22/2023 9:51 AM CDT DTL Alanine Aminotransferase (ALT), S 21 7 - 45 U/L 08/22/2023 9:51 AM CDT DTL Bilirubin, Total, S 0.3 0.0 - 1.2 mg/dL 08/22/2023 9:51 AM CDT DTL Blood (Blood, Venous) 08/22/2023 8:49 AM CDT 08/22/2023 9:25 AM CDT Jose Zhang M.D. LAB BLOOD ADD-ON [facility] [address] [place] [address], [facility] [address] [place] [address] * Dbot-6-Lxqhguarbtofu (Beta-2-M) (08/22/2023 8:49 AM CDT) Oysm-1-Igrtiksm bulin, S 2.25 1.21 - 2.70 mcg/mL 08/22/2023 2:38 PM CDT [facility] Blood (Blood, Venous) 08/22/2023 8:49 AM CDT 08/22/2023 12:38 PM CDT Jose Zhang M.D. LAB BLOOD ADD-ON [facility] [address] [place] [address] [facility] [address] [place] [address] * Immunoglobulin Free Light Chains (08/22/2023 8:48 AM CDT) [place] Free Light Chain, S 1.76 0.3300 - 1.94 mg/dL 08/22/2023 1:34 PM CDT [facility] Lambda Free Light Chain, S 1.97 0.5700 - 2.63 mg/dL 08/22/2023 1:35 PM CDT [facility] [place]/Lambda FLC Ratio 0.8934 0.2600 - 1.65 08/22/2023 1:35 PM CDT [facility] Blood (Blood, Venous) 08/22/2023 8:48 AM CDT 08/22/2023 1:04 PM CDT Jose Zhang M.D. LAB BLOOD ADD-ON [facility] [address] [place] [address] [facility] [address] [place] [address] * Sedimentation Rate (08/22/2023 8:48 AM CDT) Sedimentation Rate, B 16 2 - 22 mm/h 08/22/2023 11:23 AM CDT DTL Blood (Blood, Venous) 08/22/2023 8:48 AM CDT 08/22/2023 9:14 AM CDT Jose Zhang M.D. LAB BLOOD ADD-ON [facility] [address] [place] [address], [facility] DTL [facility] [address] [address] * (ABNORMAL) CBC with Differential, Blood (08/22/2023 8:48 AM CDT) Hemoglobin 14.7 11.6 - 15.0 g/dL 08/22/2023 10:15 AM CDT DTL Hematocrit 45.1(H) 35.5 - 44.9 % 08/22/2023 10:15 AM CDT DTL Erythrocytes 4.60 3.92 - 5.13 x10(12)/L 08/22/2023 10:15 AM CDT DTL MCV 98.0(H) 78.2 - 97.9 fL 08/22/2023 10:15 AM CDT DTL RBC Distrib Width 14.1 12.2 - 16.1 % 08/22/2023 10:15 AM CDT DTL Platelet Count 271 157 - 371 x10(9)/L 08/22/2023 10:15 AM CDT DTL Leukocytes 8.9 3.4 - 9.6 x10(9)/L 08/22/2023 10:15 AM CDT DTL Neutrophils 5.63 1.56 - 6.45 x10(9)/L 08/22/2023 10:52 AM CDT [facility] Comment:Rechecked Lymphocytes 2.44 0.95 - 3.07 x10(9)/L 08/22/2023 10:52 AM CDT DTL Monocytes 0.69 0.26 - 0.81 x10(9)/L 08/22/2023 10:52 AM CDT DTL Eosinophils 0.12 0.03 - 0.48 x10(9)/L 08/22/2023 10:52 AM CDT DTL Basophils 0.03 0.01 - 0.08 x10(9)/L 08/22/2023 10:52 AM CDT DTL Blood (Blood, Venous) 08/22/2023 8:48 AM CDT 08/22/2023 9:14 AM CDT Jose Zhang M.D. LAB BLOOD ADD-ON [facility] [address] [place] [address], [place] DTL [facility] [address] [place] [address] [facility] [address] [place] [address] documented in this encounter Visit Diagnoses Diagnosis Tumor Bone documented in this encounter Care Teams Cytology Supervisor Relationship Specialty Start Date End Date Elsewhere, Pcp PCP - General Internal Medicine 08/21/23 documented as of this encounter
--- OUTSIDE RECORDS SUMMARY | 2023-11-20 19:26 | XMS_ITS | Encounter Summary ---
Author Organization [facility] Address [address] [place] [address] Care Team Providers Care Network Control Operator Name Role Phone Elsewhere, Pcp Primary Care Provider Unavailabl e Encounter Details Date Type Department Care Team (Latest Contact Info) Description 08/22/2023 2:00 PM CDT Ancillary Procedure Department [...] th e electric, gas, oil, or water [employer] threatened to shut off services in your [...] have a [facility] place to live 08/15/2023 Sex and Gender Information Value Date Recorded Sex Assigned at Female 08/15/2023 7:51 AM CDT Gender Identity Female 08/15/2023 7:51 AM CDT Sexual Orientation Straight 08/15/2023 7: 51 AM CDT documented as of this encounter Plan of Treatment Upcoming Encounters Date Type Department Care Team (Latest Contact Info) Description 11/28/2023 2:15 PM CDT Office Visit Department of Otorhinolaryngology in [place], [place] [address] [place] [phone] Kendra Garcia M.D. [address] [place] [phone] 11/29/2023 7:45 AM CDT Clinical Communication Virtual Review in [place], [place] 200 [place] [address] 11/30/2023 7:00 AM CDT Appointment Department of Laboratory Medicine and Pathology, [facility], in [place], [place] [address] [place] [phone] Eric Renner M.D. [address] [place] [phone] 11/30/2023 9:00 AM CDT Office Visit Division of Hematology in [place], [place] [address] [place] [address] Aníbal Reece, FAVIOLA, C.N.P., M.S.N. [address] [place] [phone] 11/30/2023 12:15 PM CDT Infusion Department of Oncology in [place], [place] [address] [place] [phone] Eric Renner M.D. [address] [place] [phone] 12/20/2023 7:45 AM FLOORMAN Clinical Communication Virtual Review in [place], [place] 200 [place] [address] 12/21/2023 7:00 AM FLOORMAN Appointment Department of Laboratory Medicine and Pathology, [facility] in [place], [place] [address] [place] [phone] Eric Renner M.D. [address] [place] [phone] 12/21/2023 9:00 AM FLOORMAN Office Visit Division of Hematology in [place], [place] [address] [place] [phone] Zulma Hickey APRN, C.N.P., M.S.N. [address] [place] [phone] 12/21/2023 10:00 AM FLOORMAN Infusion Department of Oncology in [place], [place] [address] [place] [phone] Eric Renner M.D. [address] [place] [phone] 01/11/2024 7:00 AM FLOORMAN Appointment Department of Laboratory Medicine and Pathology, [facility], in [place], [place] [address] [place] [address] Eric Renner M.D. [address] [place] [address] 01/11/2024 9:00 AM FLOORMAN Office Visit Division of Hematology in [place], [place] [address] [place] [address] Susu Cameron M.D. [address] [place] [phone] 01/11/2024 10:15 AM FLOORMAN Infusion Department of Oncology in [place], [place] [address] [place] [address] Eric Renner M.D. [address] [place] [phone] 01/14/2024 9:15 AM FLOORMAN Diagnostic Department of Otorhinolaryngology in [place], [place] [address] [place] [address] Eric Renner M.D. [address] [place] [phone] Wendy oMon Au.D., C.CJacquelinCJacquelin-Grecia [address] [place] [phone] 01/14/2024 1:00 PM FLOORMAN Diagnostic Department of Otorhinolaryngology in [place], [place] [address] [place] [address] Eric Renner M.D. [address] [place] [phone] Osiel Middleton Au.D. [address] [place] [phone] 01/14/2024 4:00 PM FLOORMAN Clinical Support Department of Otorhinolaryngology in [place], [place] [address] [place] [address] Eric Renner M.D. [address] [place] [address] Taj Nicolas PGirish [address] [place] [phone] documented as of this encounter Procedures Procedure Name Priority Date/Time Associated Diagnosis Comments OTORHINOLARYNGOLOGY IMAGE EXAM Routine 08/22/2023 10:28 AM CDT documented in this encounter Results * Otorhinolaryngology Image Exam-Otorhinolaryngology Image Exam (08/22/2023 10:28 AM CDT) 08/22/2023 1:59 PM CDT Narrative IIMS - 08/22/2023 10:28 AM CDT This order has been created and auto-finalized to support the import of images acquired without order. The clinical documentation to support these images can be found on the encounter that produced images. Provider Not In System IMG NON RAD IMAGI NG PROCEDURES IIMS NA documented in this encounter Visit Diagnoses Not on filedocumented in this encounter Care Teams Network Control Operator Relationship Specialty Start Date End Date Elsewhere, Pcp PCP - General Internal Medicine 08/21/23 documented as of this encounter
--- OUTSIDE RECORDS SUMMARY | 2023-11-20 19:26 | XMS_ITS | Encounter Summary ---
Author Organization [facility] Address [address] [place] [address] Care Team Providers Care Adobe Architect Name Role Phone Elsewhere, Pcp Primary Care Provider Unavailabl e Reason for Referral * MRI/CAT/PET Scan (Routine) - Closed Specialty Diagnoses / Procedures Referred By Julio faustin Referred To Contact Radiology Diagnoses Tumor Bone Procedures CT Bone Biopsy Jose Zhang M.D. 200 [place] [address] [facility] Referral ID Status Reason Start Date Expiration Date Visits Re quested Visits Authorized [id number] Closed 08/13/2023 08/12/2024 1 1 Reason for Visit * MRI/CAT/PET Scan (Routine) - Closed Specialty Diagnoses / Procedures Referred By Julio faustin Referred To Contact Radiology Diagnoses Tumor Bone Procedures CT Bone Biopsy Jose Zhang M.D. 200 [place] [address] [facility] Referral ID Status Reason Start Date Expiration Date Visits Re quested Visits Authorized [id number] Closed 08/13/2023 08/12/2024 1 1 Encounter Details Date Type Department Care Team (Latest Contact Info) Description 08/23/2023 12:27 PM CDT - 08/23/2023 5:28 PM CDT Hospital Encounter Department of Radiology, [facility], in [place], [place] [address] [place] [address] Jose Zhang M.D. [address] [place] [phone] Tumor Bone Discharge Disposition: Home or Self [...] Sign Reading Time Taken Comments Blood Pressure 107/74 08/23/2023 4:12 PM CDT Pulse 87 08/23/2023 4:27 PM CDT Temperature 36.9 ??C (98.4 ??F) 08/23/2023 1:59 PM CD T Respiratory Rate 13 08/23/2023 4:27 PM CDT Oxygen Saturation 96% 08/23/2023 4:27 PM CDT Inhaled Oxygen Concentration - - Weight - - Height - - Body Mass Index - - documented in this encounter Discharge Instructions * Attachments The following attachments cannot be sent through Care Everywhere. * About Your Bone Biopsy (Armenian) documented in this encounter Medications at Time [...] 07/18/2023 08/31/2023 documented as of this encounter Miscellaneous Notes * Result Encounter Note - Jose Zhang M.D. - 08/30/2023 2:16 PM CDT I have reviewed the final pathology report and the identified diagnosis is consistent with the patient's clinical presentation. documented in this encounter Plan of Treatment Upcoming Encounters Date Type Department Care Team (Latest Contact Info) Description 11/28/2023 2:15 PM CDT Office Visit Department of Otorhinolaryngology in [address] [phone] Kendra Garcia M.D. [address] [place] [phone] 11/29/2023 7:45 AM CDT Clinical Communication Virtual Review in [place], [place] 200 [place] [address] 11/30/2023 7:00 AM CDT Appointment Department of Laboratory Medicine and Pathology, [facility], in [place], [place] [address] [place] [phone] Eric Renner M.D. [address] [place] [phone] 11/30/2023 9:00 AM CDT Office Visit Division of Hematology in [place], [place] [address] [place] [phone] Aníbal Reece APRN, Yassine.N.Ad., M.S.N. [address] [place] [phone] 11/30/2023 12:15 PM CDT Infusion Department of Oncology in [place], [place] [address] [place] [phone] Eric Renner M.D. [address] [place] [phone] 12/20/2023 7:45 AM METAL BONDING ASSEMBLER Clinical Communication Virtual Review in [place], [place] 200 [place] [address] 12/21/2023 7:00 AM METAL BONDING ASSEMBLER Appointment Department of Laboratory Medicine and Pathology, [facility] in [place], [place] [address] [place] [phone] Eric Renner M.D. [address] [place] [phone] 12/21/2023 9:00 AM METAL BONDING ASSEMBLER Office Visit Division of Hematology in [place], [place] [address] [place] [phone] Zulma Hickey APRN, C.N.Ad., M.S.N. [address] [place] [phone] 12/21/2023 10:00 AM METAL BONDING ASSEMBLER Infusion Department of Oncology in [place], [place] [address] [place] [phone] Eric Renner M.D. [address] [place] [phone] 01/11/2024 7:00 AM METAL BONDING ASSEMBLER Appointment Department of Laboratory Medicine and Pathology, [facility] in [place], [place] [address] [place] [address] Eric Renner M.D. [address] [place] [phone] 01/11/2024 9:00 AM METAL BONDING ASSEMBLER Office Visit Division of Hematology in [place], [place] [address] [place] [address] Susu Cameron M.D. [address] [place] [phone] 01/11/2024 10:15 AM METAL BONDING ASSEMBLER Infusion Department of Oncology in [place], [place] [address] [place] [address] Eric Renner M.D. [address] [place] [phone] 01/14/2024 9:15 AM METAL BONDING ASSEMBLER Diagnostic Department of Otorhinolaryngology in [place], [place] [address] [place] [address] Eric Renner M.D. [address] [place] [phone] Wendy Moon Au.D., C.C.CJacquelin-A [address] [place] [phone] 01/14/2024 1:00 PM METAL BONDING ASSEMBLER Diagnostic Department of Otorhinolaryngology in [place], [place] [address] [place] [phone] Eric Renner M.D. [address] [place] [phone] Osiel Middleton Au.D. [address] [place] [phone] 01/14/2024 4:00 PM METAL BONDING ASSEMBLER Clinical Support Department of Otorhinolaryngology in [place], [place] [address] [place] [address] Eric Renner M.D. [address] [place] [phone] Taj Nicolas P.T. [address] [place] [phone] documented as of this encounter Procedures Procedure Name Priority Date/Time Associated Diagnosis Comments CT BONE BIOPSY RAD - Routine (most inpatients and all outpatients) 08/23/2023 3:46 PM CDT Tumor Bone CYTOLOGY FINE NEEDLE ASPIRATION (INCLUDES CORE BIOPSIES Timed 08/23/2023 2:58 PM CDT Tumor Bone GLUCOSE POCT, B Routine 08/23/2023 2:07 PM CDT B-CELL LYMPHOMA, FISH, TISSUE Routine 08/23/2023 10:56 AM CDT documented in this encounter Results * CT Bone Biopsy (08/23/2023 3:46 PM [...] with the ordering provider Dr. Jose Zhang [phone] who requested the extraosseous soft tissue to [...] discussed with the ordering providerDr. Jose Zhang [phone] who requested the extraosseous soft tissue tobiopsy. [...] left iliac bone. EP Jose Zhang M.D. [facility] [place] CT PROCEDURES * (ABNORMAL) Cytology Fine Needle Aspiration (including core biopsies) (08/23/2023 2:58 PM CDT) (A) 1:09 PM CDT DTL Disclaimer This test was developed and its performance characteristics determined by [facility] in a manner consistent with CLIA [...] four cores and nine fragments. ??Grossed by [facility] B: Received 3 alcohol-fixed smears and tissue. [...] not decalcified prior to processing. ??Grossed by MOM(A) 08/30/2023 1:09 PM CDT DTL Source A. [...] for BLYM, soft tissue, pelvis, left, nodule ([id number]; block A1; 08/23/2023): ?? The result is [...] and CD20. The neoplastic cells are diffusely IU73-[id number] and are negative for CD3.(A) 08/30/2023 1:09 PM CDT DTL Tissue (Pelvis, Left) 08/23/2023 2:58 PM CDT Biopsy (Bone) 08/23/2023 3:0 0 PM CDT Jose Zhang M.D. LAB SURG PATH DANIELLE LOYA Performing Organization Address City/[facility]/ZIP Co de Phone Number [facility] [address] [place] [address] [place] 200 [place] [address] * Glucose, POCT (08/23/2023 2:07 PM CDT) Pathologist [facility] Glucose, POCT, B 105 70 - 140 mg/dL 08/23/2023 2:15 PM CDT [facility] Blood 08/23/2023 2:07 PM CDT 08/23/2023 2:15 PM CDT Unknown Provider LAB POCT ORDERABLES- MANUAL POC [facility] 200 [place] [address], [facility] 200 [place] [address] * B-cell Lymphoma, FISH, Tissue (08/23/2023 10:56 AM CDT) Result Summary Positive 08/30/2023 1:05 PM CDT DTL Disclaimer This test was developed and its performance characteristics determined by [facility] in a manner consistent with CLIA [...] 08/30/2023 1:05 PM CDT DTL Result nuc annabel(3'STT3v2-2,5'B KB7z5-9)(3'BCL2 con 5'GRR1x6-1)[51/100 ] 08/30/2023 1:05 PM CDT DTL Reason for Referral rule out [facility] 08/30/2023 1:05 PM CDT DTL Specimen Tissue, Slides, Formalin 08/30/2023 1:05 PM CDT DTL Source soft tissue, pelvis, left, nodule 08/30/2023 1:05 PM CDT DTL Tissue ID [id number] 08/30/2023 1:05 PM CDT DTL Method Locus and probes ?[Strategy;#Nucle i;Vendor] ----- 3q27(3'BCL6,5'BCL6 ) ?[BAP;100;AM] 8CEN(D8Z2),8q24.1( MYC),14q32(IGH) ?[DFISH;100;AM] 8q24.1(5'MYC,3'MYC ) ?[BAP;100;AM] 18q21(3'BCL2,5'BCL 2) ? [BAP;100;AM] Probe strategies include: DFISH=dual color, double fusion; BAP=break-apart probe. Scoring Method: Manual Probe vendors include: AM = [email or web address] ([place], [place]) 08/30/2023 1:05 PM CDT DTL Additional Information A portion of the testing process was performed at [facility] site [id number]. 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 No rearrangement of MYC or BCL6 and no fusion of MYC and IGH was observed. FISH studies interpreted in consultation with Arielle Pérez M.D. This test was ordered in the context of a [facility] pathology consultation/case (#[id number]), and this result should be interpreted within the context of the pathology consultation/repor t. 08/30/2023 1:05 PM CDT DTL Tissue 08/23/2023 10:5 6 AM CDT 08/28/2023 11:44 AM CDT Jose Zhang M.D. LAB GENETIC TESTIN G [facility] [address] [place] [address], [facility] [address] [place] [address] documented in this encounter Visit Diagnoses Diagnosis Tumor Bone documented in this encounter Administered Medications Inactive Administered Medications - up to 3 most recent administrations Medication Order MAR Action Action Date Dose Rate Site fentaNYL injection 25 mcg (Sublimaze) 25 mcg, intravenous, Every 2 min PRN, sedation, Administer over 1 minute immediately prior to the procedure. May repeat every 2 minutes to a maximum of 200 mcg, until pain score of 3 or less, or until the patient meets the pain comfort goal, or RASS 0 to -2. Do not give if respiratory rate is less than 8 breaths/minute., Starting on Jayleen 08/23/23 at 1452, For 3 hours, Intraprocedure (RAD), Subsequent doses Given 08/23/2023 3:29 PM CDT 25 mcg Given 08/23/2023 3:22 PM CDT 25 mcg Given 08/23/2023 3:15 PM CDT 25 mcg fentaNYL injection 25 mcg (Sublimaze) 25 mcg, intravenous, Once as needed, sedation, Starting on Jayleen 08/23/23 at 1452, For 1 dose, Intraprocedure (RAD), IV Push, Initial dose flumazeniL injection 0.2 mg (Romazicon) 0.2 mg, intravenous, Once as needed, reversal, Starting on Jayleen 08/23/23 at 1452, For 1 dose, Intraprocedure (RAD), Administer once if patient has a RASS score of -4, -5 and has a respiratory rate less than 8 breaths/minute. Lactated Ringer's 20 mL/hr, intravenous, Once as needed, to keep vein open, Starting on Jayleen 08/23/23 at 1452, For 1 dose, Intraprocedure (RAD) lidocaine (PF) 10 mg/mL (1 %) injection (Xylocaine) As needed, Starting on Jayleen 08/23/23 at 1552, Intra-Op Given 08/23/2023 3:52 PM CDT 15 mL Oth er midazolam (PF) injection 0.25 mg (Versed) 0.25 mg, intravenous, Every 2 min PRN, sedation, RASS -2, Starting on Jayleen 08/23/23 at 1452, For 3 hours, Intraprocedure (RAD), May repeat every 2 minutes to a maximum of 5 mg. Do not give if respiratory rate is less than 8 breaths/minute. midazolam (PF) injection 0.5 mg (Versed) 0.5 mg, intravenous, Once as needed, sedation, Starting on Jayleen 08/23/23 at 1452, For 1 dose, Intraprocedure (RAD) midazolam (PF) injection 0.5 mg (Versed) 0.5 mg, intravenous, Every 2 min PRN, sedation, RASS -1, Starting on Jayleen 08/23/23 at 1452, For 3 hours, Intraprocedure (RAD), May repeat every 2 minutes for a maximum of 5 mg. Do not give if respiratory rate is less than 8 breaths/minute. Given 08/23/2023 3:29 PM CDT 0.5 mg Given 08/23/2023 3:22 PM CDT 0.5 mg Given 08/23/2023 3:15 PM CDT 0.5 mg midazolam (PF) injection 1 mg (Versed) 1 mg, intravenous, Every 2 min PRN, sedation, RASS 0, Starting on Jayleen 08/23/23 at 1452, For 3 hours, Intraprocedure (RAD), May repeat every 2 minutes for a maximum of 5 mg. Do not give if respiratory rate is less than 8 breaths/minute. Given 08/23/2023 3 :06 PM CDT 1 mg naloxone injection 0.2 mg (Narcan) 0.2 mg, intravenous, Once as needed, respiratory depression, Starting on Jayleen 08/23/23 at 1452, For 1 dose, Intraprocedure (RAD), Administer once if patient has a RASS score of -4, -5 and has a respiratory rate less than 8 breaths/minute. documented in this encounter Active and Recently Administered Medications Times are shown in CDT. Scheduled Medication Order 08/21/2023 08/22/2023 08/23/2023 insulin aspart U-100 injection 0-5 Units (NovoLOG) 0-5 Units, subcutaneous, Once, On Jayleen 08/23/23 at 1430, For 1 dose, If patient reported an allergy to Aspart (Novolog??) insulin or has taken a rapid acting insulin in past two hours or has consumed a carbohydrate containing beverage in past four hours, DO NOT ADMINISTER the Aspart (Novolog??) insulin: contact primary provider for procedure. Contact primary provider for procedure prior to administering dose per correction scale For glucose: less than 260 = 0 units - document as not given 260-299 mg/dL = 2 units Insulin 300-339 mg/dL = 3 units Insulin 340-379 mg/dL = 4 units Insulin 380 - 399 mg/dL= 5 units Insulin Greater than or equal to 400 mg/dL = Contact primary provider for procedure for further instructions 1430 (Due) PRN Medication Order 08/21/2023 08/22/2023 08/23/2023 fentaNYL injection 25 mcg (Sublimaze) 25 mcg, intravenous, Every 2 min PRN, sedation, Administer over 1 minute immediately prior to the procedure. May repeat every 2 minutes to a maximum of 200 mcg, until pain score of 3 or less, or until the patient meets the pain comfort goal, or RASS 0 to -2. Do not give if respiratory rate is less than 8 breaths/minute., Starting on Jayleen 08/23/23 at 1452, For 3 hours, Intraprocedure (RAD), Subsequent doses 1506 (Given - Provid er: Buck Cerrato R.N.)1508 (Given - Provider: Buck Cerrato R.N.)1511 (Given - Provider: Buck Cerrato R.N.)1515 (Given - Provider: Buck Cerrato R.N.)1522 (Given - Provider: Buck Cerrato R.N.)1529 (Given - Provider: Buck Cerrato R.N.) fentaNYL injection 25 mcg (Sublimaze) 25 mcg, intravenous, Once as needed, sedation, Starting on Jayleen 08/23/23 at 1452, For 1 dose, Intraprocedure (RAD), IV Push, Initial dose flumazeniL injection 0.2 mg (Romazicon) 0.2 mg, intravenous, Once as needed, reversal, Starting on Jayleen 08/23/23 at 1452, For 1 dose, Intraprocedure (RAD), Administer once if patient has a RASS score of -4, -5 and has a respiratory rate less than 8 breaths/minute. Lactated Ringer's 20 mL/hr, intravenous, Once as needed, to keep vein open, Starting on Jayleen 08/23/23 at 1452, For 1 dose, Intraprocedure (RAD) lidocaine (PF) 10 mg/mL (1 %) injection (Xylocaine) (COMPLETED) As needed, Starting on Jayleen 08/23/23 at 1552, Intra-Op 1552 (Given - Provid er: Ishmael Zavala M.D.) midazolam (PF) injection 0.25 mg (Versed) 0.25 mg, intravenous, Every 2 min PRN, sedation, RASS -2, Starting on Jayleen 08/23/23 at 1452, For 3 hours, Intraprocedure (RAD), May repeat every 2 minutes to a maximum of 5 mg. Do not give if respiratory rate is less than 8 breaths/minute. midazolam (PF) injection 0.5 mg (Versed) 0.5 mg, intravenous, Once as needed, sedation, Starting on Jayleen 08/23/23 at 1452, For 1 dose, Intraprocedure (RAD) midazolam (PF) injection 0.5 mg (Versed) 0.5 mg, intravenous, Every 2 min PRN, sedation, RASS -1, Starting on Jayleen 724 at 1452, For 3 hours, Intraprocedure (RAD), May repeat every 2 minutes for a maximum of 5 mg. Do not give if respiratory rate is less than 8 breaths/minute. 1511 (Given - Provid er: Buck Cerrato R.N.)1515 (Given - Provider: Buck Cerrato R.N.)1522 (Given - Provider: Buck Cerrato R.N.)1529 (Given - Provider: Buck Cerrato R.N.) midazolam (PF) injection 1 mg (Versed) 1 mg, intravenous, Every 2 min PRN, sedation, RASS 0, Starting on Jayleen 08/23/23 at 1452, For 3 hours, Intraprocedure (RAD), May repeat every 2 minutes for a maximum of 5 mg. Do not give if respiratory rate is less than 8 breaths/minute. 1506 (Given - Provid er: Buck Cerrato R.N.) naloxone injection 0.2 mg (Narcan) 0.2 mg, intravenous, Once as needed, respiratory depression, Starting on Jayleen 08/23/23 at 1452, For 1 dose, Intraprocedure (RAD), Administer once if patient has a RASS score of -4, -5 and has a respiratory rate less than 8 breaths/minute. documented in this encounter Care Teams Adobe Architect Relationship Specialty Start Date End Date Elsewhere, Pcp PCP - General Internal Medicine 08/21/23 documented as of this encounter
--- OUTSIDE RECORDS SUMMARY | 2023-11-20 19:26 | XMS_ITS | Encounter Summary ---
Author Organization [facility] Address [address] [place] [address] Care Team Providers Care Ms Sql Developer Name Role Phone Elsewhere, Pcp Primary Care Provider Unavailabl e Reason for Visit * Outpatient (Routine) - Closed Specialty Diagnoses / Procedures Referred By Julio faustin Referred To Contact Orthopedic Surgery Diagnoses Tumor Bone Jose Zhang M.D. [address] [place] [address] [facility] Referral ID Status Reason Start Date Expiration Date Visits Re quested Visits Authorized [id number] Closed 08/13/2023 02/11/2025 1 1 Encounter Details Date Type Department Care Team (Late st Contact Info) Description 08/23/2023 9:00 AM CDT Comprehensive Visit Department of Orthopedic Surgery in [place], [place] [address] [place] [phone] Jose Zhnag M.D. [address] [place] [phone] Tumor Bone Social History Tobacco Use Types Packs/Day Years [...] as of this encounter Consult Notes * Brien Vargas M.D. - 08/23/2023 9:00 AM CDT REFERRAL SOURCE Srinivas Celis MD CHIEF COMPLAINT No reported reason for consult SUBJECTIVE HISTORY OF PRESENT ILLNESS Ana Fuller is a 53 y.o. female with a past medical history significant for hypertension, diabetes, COPD, asthma, anxiety/depression, and current tobacco use who presents for evaluation of of a left pelvic mass. Patient was seen by an outside orthopedist for symptoms of low back pain and radiculopathy. An MRI of the lumbar spine was performed on 07/31/2023 which demonstrate abnormal finding in her left ilium. Because of this a dedicated pelvic MRI was performed 08/07/2023 which demonstrated signs concerning for malignancy. Patient reports her pain previously felt like sciatica with radiating pain all the way down her leg. Now, she reports pain is more localized to her hip, both in the front and back as well as her groin. She describes her pain as tightness and sometimes limps secondary to pain. Patient denies newor worsening cough, changes in appetite or weight. PAST MEDICAL & SURGICAL HISTORY Past Medical History: Diagnosis Date Anxiety Generalized Disorder Asthma NOS 10-15 yrs Chronic Obstructive Pulmonary Disease (HCC) 10-15 yrs Depressive Disorder Diabetes Mellitus NOS 2002 Gallbladder Disorder removed 10+ yrs ago Hyperlipidemia 10 yrs Malignant Primary Neoplasm (Unknown Site) Unspecified (HCC) waiting to get biopsy for bone on pelvis, tailbone and soft tissue Stone Kidney ? 2 months ago ? Past Surgical History: Procedure Laterality Date BLADDER SURGERY 1974 SECTION 1994 & 2001 DILATATION AND CURETTAGE had 4, miscarriages GALLBLADDER SURGERY 2013 HERNIA REPAIR 1995 JOINT REPLACEMENT 2020 ACL OOPHORECTOMY, PARTIAL OR TOTAL, UNILATERAL OR BILATERAL;.. 2003 SALPINGECTOMY 2003 TONSILLECTOMY 1980 TOTAL HYSTERECTOMY 2003 ALLERGIES FAMILY HISTORY Family History Problem Relation Name Age of Onset Coronary artery disease Mother Callie Diabetes Mother Callie Obesity Mother Callie Pancreatic cancer Father Bonilla Hitchcock at 53 Hypertension Maternal Grandfather Meño Stroke Maternal Grandmother Zayda several strokes Diabetes Maternal Grandmother Zayda Obesity Maternal Grandmother Zayda Thyroid disease Paternal Grandmother Sofia Diabetes Mother's Brother William Diabetes Mother's Brother Mat Diabetes Mother's Brother Aleks Migraines Mother's Brother Aleks Diabetes Mother's Brother Art Gestational diabetes Sister Lauren Obesity Sister Lauren Gestational diabetes Sister Monika Thyroid disease Sister Monika underactive thyroid Rheum arthritis Sister Monika Obesity Sister Monika SOCIAL HISTORY Lives in [place], [place]. Not currently working. Does some yard work and ambulates stairs at home. Active smoker, 1.5 packs per day for approximately 40 years. OBJECTIVE VITAL SIGNS No intake/output data recorded. PHYSICAL EXAM General: No acute distress. Alert and oriented. Musculoskeletal: RLE: No pain with ROM throughout the RLE. Calf soft and non-tender. Neurovascularly intact with palpable DP pulse. Sensation intact grossly to light touch throughout dermatomes. Full strength throughL2-S1 dermatomes. LLE: No pain with palpation about the left hip.Calf soft and non-tender. Neurovascularly intact with palpable DP pulse. Sensation intact grossly to light touch throughout dermatomes. Full strength through L2-S1 dermatomes. Negative log roll. Negative straight leg raise. Pain with terminal hip flexion and FADIR/MELLY maneuvers. DIAGNOSTICS Lab Results Component Value Date WBC 8.9 08/22/2023 HGB 14.7 08/22/2023 HCT 45.1 (H) 08/22/2023 MCV 98.0 (H) 08/22/2023 PLT 271 08/22/2023 Lab Results Component Value Date NA 143 08/22/2023 CL 103 08/22/2023 CO2 27 09/30/2021 Lab Results Component Value Date CREATININE 0.88 08/22/2023 LDH 281, CRP 12.6, Normal kappa/ben light chains. IMAGING: MRI from 08/07/2023 was reviewed and demonstrates a marrow replacing lesion involving the left iliac wing and sacral ala with an associated soft tissue component. ASSESSMENT / PLAN IMPRESSION/REPORT/PLAN #1 Left pelvic mass Please see Dr. Zhang's supervisory note for final assessment and plan. Please contact Dr. Zhang's service pager at [phone] with any questions or concerns regarding management of this patient. Associated attestation - Jose Zhang M.D. - 08/23/2023 11:42 AM CDT I saw and evaluated the patient, participating in the marrero portions of the service. I reviewed the resident/fellow???s note. I agree with the resident/fellow???s findings and plan. 1. Left pelvic bone tumor Ms. Alina quiroz is a 53-year-old female who was being evaluated for low back pain with radiculopathy. She underwent an MRI of her lumbar spine which showed abnormal finding of the ilium. This promptedan MRI of her pelvis. There is concerns for potential malignancy and as such she was referred to [facility]. In speaking with her, her main pain at this time is in her groin. She previously had pain which felt like sciatica radiating down her entire leg however at this time, feels is more like a tight tendon, and does limp secondary to pain. She does not use gait aids. Physical exam General: Alert and oriented no acute distress Gait: Slightly antalgic favoring left Musculoskeletal: No pain with gentle hip range of motion. No pain with resisted abduction, however some pain with resisted hip flexion. Imaging studies MRI shows a marrow replacing lesion involving the ilium. There is a soft-tissue mass also involvingthe gluteal muscles and iliacus. There also is some a large lymph nodes around the obturator chain 1. Left pelvic bone tumor I had a discussion with Ms. Fuller about her imaging, and the plan moving forward. We discussed the need for a CT-guided biopsy at this time. We are initially concern we would potentially for secondary process, or a hematological malignancy. We did discuss that rarely this would be a primary bone tumor. We discussed the different treatment options that were available based off of the type of tumor that this is. Multiple questions were answered to the best of our ability, and once we have the results of the biopsy, we will contact her and develop a treatment plan moving forward. I provided her with my card should she have any questions or concerns, she knows she can reach out to me at any time. documented in this encounter Plan of Treatment Upcoming Encounters Date Type Department Care Team (Latest Contact Info) Description 11/28/2023 2:15 PM CDT Office Visit Department of Otorhinolaryngology in [address] [phone] Kendra Garcia M.D. [address] [place] [phone] 11/29/2023 7:45 AM CDT Clinical Communication Virtual Review in [place], [place] [address] [place] [address] 11/30/2023 7:00 AM CDT Appointment Department of Laboratory Medicine and Pathology, [facility], in [address] [phone] Eric Renner M.D. [address] [place] [phone] 11/30/2023 9:00 AM CDT Office Visit Division of Hematology in [address] [phone] Aníbal Reece APRN, C.N.P., M.S.N. [address] [place] [phone] 11/30/2023 12:15 PM CDT Infusion Department of Oncology in [place], [place] [address] [place] [phone] Eric Renner M.D. [address] [place] [phone] 12/20/2023 7:45 AM EFFICIENCY MINER Clinical Communication Virtual Review in [place], [place] [address] [place] [address] 12/21/2023 7:00 AM EFFICIENCY MINER Appointment Department of Laboratory Medicine and Pathology, [facility], in [address] [phone] Eric Renner M.D. [address] [place] [phone] 12/21/2023 9:00 AM EFFICIENCY MINER Office Visit Division of Hematology in [place], [place] [address] [place] [phone] Zulma Hickey APRN, C.N.P., M.S.N. [address] [place] [phone] 12/21/2023 10:00 AM EFFICIENCY MINER Infusion Department of Oncology in [address] [address] VillEric Keene M.D. [address] [place] [phone] 01/11/2024 7:00 AM EFFICIENCY MINER Appointment Department of Laboratory Medicine and Pathology, [facility], in [place], [place] [address] [place] [address] Eric Renner M.D. [address] [place] [phone] 01/11/2024 9:00 AM EFFICIENCY MINER Office Visit Division of Hematology in [place], [place] [address] [place] [address] Susu Cameron M.D. [address] [place] [phone] 01/11/2024 10:15 AM EFFICIENCY MINER Infusion Department of Oncology in [place], [place] [address] [place] [address] Eric Renner M.D. [address] [place] [phone] 01/14/2024 9:15 AM EFFICIENCY MINER Diagnostic Department of Otorhinolaryngology in [place], [place] [address] [place] [phone] Eric Renner M.D. [address] [place] [phone] Wendy Moon Au.D., C.C.C.-A [address] [place] [phone] 01/14/2024 1:00 PM EFFICIENCY MINER Diagnostic Department of Otorhinolaryngology in [place], [place] [address] [place] [address] Eric Renner M.D. [address] [place] [phone] Osiel Middleton Au.D. [address] [place] [phone] 01/14/2024 4:00 PM EFFICIENCY MINER Clinical Support Department of Otorhinolaryngology in [place], [place] [address] [place] [phone] Eric Renner M.D. [address] [place] [phone] Taj Nicolas, P.TJacquelin [address] [place] [phone] documented as of this encounter Visit Diagnoses Diagnosis Tumor Bone documented in this encounter Care Teams Ms Sql Developer Relationship Specialty Start Date End Date Elsewhere, Pcp PCP - General Internal Medicine 08/21/23 documented as of this encounter
--- OUTSIDE RECORDS SUMMARY | 2023-11-20 19:26 | XMS_ITS | Encounter Summary ---
Author Organization [facility] Address [address] [place] [address] Care Team Providers Care Cost Recorder Name Role Phone Elsewhere, Pcp Primary Care Provider Unavailabl e Reason for Visit * Reason Onset Date Comments Follow-up 08/24/2023 Post procedure c all Encounter Details Date Type Department Care Team (Latest Contact Info) Description 08/24/2023 Clinical Communication Department of Radiology, [facility], in [place], [place] [address] [place] [address] Ishmael Zavala M.D. [address] [place] [address] Follow-up (Post procedure call) Social History Tobacco Use Types Packs/Day Years Used Date Smoking Tobacco: Every Day Cigarettes 1.5 81.8 Started: 02/12/1982 Smokeless Tobacco: Never Alcohol Use Standard Drinks/Week Comments Not Currently 0 (1 standard drink = 0.6 oz pur e alcohol) rarely [employer] Answer Date Recorded In the past 12 months has th e [employer], gas, oil, or water [employer] threatened to shut off services in your [...] encounter Miscellaneous Notes * Telephone Encounter - Catalina Lea R.N. - 08/24/2023 8:26 AM CDT Information Discussed Post procedure phone call information. Biopsy or procedure performed Bone and mass Date of procedure: 08/23/23 Performing practitioner: Ishmael Zavala Emergent signs and symptoms: Denies emergent signs or symptoms including continuous bleeding from the biopsy/procedure site, new or worsening problems with shortness of breath, or pain at the biopsy/procedure site greater or equal to 6. Non emergent signs/symptoms: Denies non-emergent signs/symptoms including new or increasing rednessor tenderness surrounding the biopsy/procedure site, pain at biopsy/procedure site is unacceptable compared with pre-procedure pain, abnormal warmth/heating from site, new or increasing swelling, andoral temp greater than 100.4 F Other Medical Problems unrelated to biopsy: Pt denies other problems unrelated to biopsy Pt Disposition: Pt denies any biopsy complications. Pt instructed to call primary care for additional concerns PLAN Disposition/Recommendation: self-care . appropriate at this time, patient encouraged to call back with questions Information/Education: patient/caller able to teach back Caller agreeable to plan of care: yes The following references were used: nursing clinical judgement documented in this encounter Plan of Treatment Upcoming Encounters Date Type Department Care Team (Latest Contact Info) Description 11/28/2023 2:15 PM CDT Office Visit Department of Otorhinolaryngology in [address] [phone] Kendra Garcia M.D. [address] [place] [phone] 11/29/2023 7:45 AM CDT Clinical Communication Virtual Review in [place], [place] 200 [place] [address] 11/30/2023 7:00 AM CDT Appointment Department of Laboratory Medicine and Pathology, [facility], in [address] [phone] Eric Renner M.D. [address] [place] [phone] 11/30/2023 9:00 AM CDT Office Visit Division of Hematology in [address] [phone] Aníbal Reece, FAVIOLA, C.N.P., M.S.N. [address] [place] [phone] 11/30/2023 12:15 PM CDT Infusion Department of Oncology in [address] [phone] Eric Renner M.D. [address] [place] [phone] 12/20/2023 7:45 AM TAX ACCOUNTANT Clinical Communication Virtual Review in [place], [place] 200 [place] [address] 12/21/2023 7:00 AM TAX ACCOUNTANT Appointment Department of Laboratory Medicine and Pathology, [facility] in [place], [place] [address] [place] [phone] Eric Renner M.D. [address] [place] [phone] 12/21/2023 9:00 AM TAX ACCOUNTANT Office Visit Division of Hematology in [place], [place] [address] [place] [phone] Zulma Hickey APRN, C.N.P., M.S.N. [address] [place] [phone] 12/21/2023 10:00 AM TAX ACCOUNTANT Infusion Department of Oncology in [place], [place] [address] [place] [phone] Eric Renner M.D. [address] [place] [phone] 01/11/2024 7:00 AM TAX ACCOUNTANT Appointment Department of Laboratory Medicine and Pathology, [facility], in [place], [place] [address] [place] [phone] Eric Renner M.D. [address] [place] [phone] 01/11/2024 9:00 AM TAX ACCOUNTANT Office Visit Division of Hematology in [place], [place] [address] [place] [phone] Susu Cameron M.D. [address] [place] [phone] 01/11/2024 10:15 AM TAX ACCOUNTANT Infusion Department of Oncology in [place], [place] [address] [place] [phone] Eric Renner M.D. [address] [place] [phone] 01/14/2024 9:15 AM TAX ACCOUNTANT Diagnostic Department of Otorhinolaryngology in [place], [place] [address] [place] [phone] Eric Renner M.D. [address] [place] [phone] Wendy Moon Au.D., C.CJacquelinCJacquelin-Grecia [address] [place] [phone] 01/14/2024 1:00 PM TAX ACCOUNTANT Diagnostic Department of Otorhinolaryngology in [place], [place] [address] [place] [phone] Eric Renner M.D. [address] [place] [phone] Osiel Middleton Au.D. [address] [place] [phone] 01/14/2024 4:00 PM TAX ACCOUNTANT Clinical Support Department of Otorhinolaryngology in [place], [place] [address] [place] [phone] Eric Renner M.D. [address] [place] [phone] Taj Nicolas, P.TJacquelin [address] [place] [phone] documented as of this encounter Visit Diagnoses Not on filedocumented in this encounter Care Teams Cost Recorder Relationship Specialty Start Date End Date Elsewhere, Pcp PCP - General Internal Medicine 08/21/23 documented as of this encounter
--- OUTSIDE RECORDS SUMMARY | 2023-11-20 19:27 | XMS_ITS | Encounter Summary ---
Author Organization [facility] Address [address] [place] [phone] Care Team Providers Care Youth Worker Name Role Phone Elsewhere, Pcp Primary Care Provider Unavailabl e Reason for Visit * Reason Onset Date Comments Pre-visit Intake 08/21/2023 Encounter Details Date Type Department Care Team (Latest Contact Info) Description 08/21/2023 8:30 AM CDT Clinical Communication Virtual Review in [place], [place] [address] [place] [address] Pre-visit Intake Social History Tobacco Use Types Packs/Day Years [...] CDT Office Visit Department of Otorhinolaryngology in [place], [place] [address] [place] [phone] Kendra Garcia M.D. [address] [place] [phone] 11/29/2023 7:45 AM CDT Clinical Communication Virtual Review in [place], [place] [address] [place] [address] 11/30/2023 7:00 AM CDT Appointment Department of Laboratory Medicine and Pathology, [facility], in [place], [place] [address] [place] [phone] Eric Renner M.D. [address] [place] [phone] 11/30/2023 9:00 AM CDT Office Visit Division of Hematology in [place], [place] [address] [place] [phone] Aníbal Reece APRN, Yassine.N.Ad., M.S.N. [address] [place] [phone] 11/30/2023 12:15 PM CDT Infusion Department of Oncology in [place], [place] [address] [place] [phone] Eric Renner M.D. [address] [place] [phone] 12/20/2023 7:45 AM FIELD REVIEWER Clinical Communication Virtual Review in [place], [place] [address] [place] [address] 12/21/2023 7:00 AM FIELD REVIEWER Appointment Department of Laboratory Medicine and Pathology, [facility] in [place], [place] [address] [place] [phone] Eric Renner M.D. [address] [place] [phone] 12/21/2023 9:00 AM FIELD REVIEWER Office Visit Division of Hematology in [address] [phone] Zulma Hickey APRN, C.N.Ad., M.S.N. [address] [place] [phone] 12/21/2023 10:00 AM FIELD REVIEWER Infusion Department of Oncology in [place], [place] [address] [place] [phone] Eric Renner M.D. [address] [place] [phone] 01/11/2024 7:00 AM FIELD REVIEWER Appointment Department of Laboratory Medicine and Pathology, [facility] in [place], [place] [address] [place] [address] Eric Renner M.D. [address] [place] [phone] 01/11/2024 9:00 AM FIELD REVIEWER Office Visit Division of Hematology in [place], [place] [address] [place] [address] Susu Cameron M.D. [address] [place] [phone] 01/11/2024 10:15 AM FIELD REVIEWER Infusion Department of Oncology in [place], [place] [address] [place] [address] Eric Renner M.D. [address] [place] [phone] 01/14/2024 9:15 AM FIELD REVIEWER Diagnostic Department of Otorhinolaryngology in [place], [place] [address] [place] [address] Eric Renner M.D. [address] [place] [phone] Wendy Moon Au.D., C.C.CJacquelin-A [address] [place] [phone] 01/14/2024 1:00 PM FIELD REVIEWER Diagnostic Department of Otorhinolaryngology in [place], [place] [address] [place] [phone] Eric Renner M.D. [address] [place] [phone] Osiel Middleton Au.D. [address] [place] [phone] 01/14/2024 4:00 PM FIELD REVIEWER Clinical Support Department of Otorhinolaryngology in [place], [place] [address] [place] [phone] Eric Renner M.D. [address] [place] [phone] Taj Nicolas, P.TJacquelin [address] [place] [phone] documented as of this encounter Visit Diagnoses Not on filedocumented in this encounter Care Teams Youth Worker Relationship Specialty Start Date End Date Elsewhere, Pcp PCP - General Internal Medicine 08/21/23 documented as of this encounter
--- OUTSIDE RECORDS SUMMARY | 2023-11-20 19:27 | XMS_ITS | Clinical Summary ---
Author Organization [facility] [facility] Address [place], [place] [address] Care Team Providers Care Stove Mechanic Name Role Phone Unavailable Primary Care Provider Unavailabl e Allergies No known active allergies Medications Medication Sig Dispensed Refills Start Date End Date Status varenicline (Chantix) 1 mg tabletIndications:T obacco abuse Take 1 mg by mouth 2 times daily with meals. 60 Tablet 2 06/24/2020 Active dulaglutide (TRULICITY) 1.5 mg/0.5 mL injectionIndication s:Controlled type 2 diabetes mellitus without complication, without long-term current use of insulin (HC),Obesity, Class II, BMI 35-39.9 Inject 1.5 mg subcutaneous once weekly. 2 mL 2 08/03/2020 Active atorvastatin (LIPITOR) 40 mg tabletIndications:C ontrolled type 2 diabetes mellitus without complication, without long-term current use of insulin (HC) Take 1 Tablet (40 mg) by mouth once daily. 90 Tablet 3 10/05/2021 Active gabapentin (NEURONTIN) 600 mg tabletIndications:P eripheral sensory neuropathy Take 1 Tablet (600 mg) by mouth 3 times daily. 270 Tablet 3 10/05/2021 Active metFORMIN (GLUCOPHAGE XR) 500 mg Extended-Release tabletIndications:C ontrolled type 2 diabetes mellitus without complication, without long-term current use of insulin (HC) Take 4 Tablets (2,000 mg) by mouth once daily. 360 Tablet 1 10/05/2021 Active Symbicort 160-4.5 mcg/actuation (160-4.5 mcg each actuation) inhalerIndications: COPD with chronic bronchitis (HC),Mild intermittent asthma without complication Inhale 2 Puffs by mouth 2 times daily. 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 5.9 g 13 12/12/2021 Active NebulizerIndication s:COPD with chronic bronchitis (HC) Nebulizer, disposable neb kit x 4, reuseable neb kit x 1, mask x 1, filters x 1. Frequency of use: every 6 hours as needed; Medication: Albuterol or Duoneb. Length of need: 99 months 1 Each 01/11/2022 Active SUMAtriptan (IMITREX) 100 mg tabletIndications:M igraine syndrome Give at minimum 2hrs apart. Max Dose: 200mg per 24hrs. 9 Tablet 1 01/22/2022 Active Ventolin HFA 90 mcg/actuation inhalerIndications: Mild intermittent asthma without complication INHALE 1 TO 2 PUFFS BY MOUTH EVERY 4 HOURS NEEDED FOR WHEEZING 1ST CHOICE 18 g 1 06/05/2022 Active albuterol-ipratropi um (DUONEB) (2.5-0.5 mg) in 3 mL NEBULIZATION solutionIndications :COPD with chronic bronchitis (HC) USE 1 AMPULE IN NEBULIZER EVERY 6 HOURS NEEDED FOR SHORTNESS OF BREATH 270 mL 11/24/2022 Active Active Problems Problem Noted Date Diagnosed Date Severe recurrent depression with psychosis 04/01 Colon polyp, repeat in 01/202202/14/2017 Overview (02/14/2017): COLON, DESCENDING, POLYPECTOMY: 1. Tubular adenoma 3mm Diabetes mellitus type II, controlled 08/28/2015 COPD with chronic bronchitis 08/28/2015 Mild intermittent asthma without complication Chronic constipation 08/28/2015 Vaginal inclusion cyst, both anterior and transport conductor ior vagina 08/19/2014 Mixed incontinence 08/19/2014 RUQ pain Overview (02/14/2017): Diagnostic colonoscopy and EGD 02/06/2017 - repeat in 5 years 3 mm polyp in the cecum - tubular adenoma 2 mm polyp in the rectum - hyperplastic Biopsies were taken with a cold forceps from the right colon and left colon for evaluation of microscopic colitis. EGD normal, biopsies normal Intermittent diarrhea Resolved Problems Problem Noted Date Diagnosed Date Resolved Date Major depressive disorder, s parul episode, severe, specified as with psychotic behavior 01/17/2011 04/01/2019 Chest pain, unspecified 06/11/2008 1209/2015 DOS (diffuse esophageal spasm) 06/11/2008 01/20/2016 Immunizations Name Administration Dates Next Due COVID-19 vaccine ([employer] 30mcg/0.3mL) PF, MDV 08/24/2020,08/03/2020 Hepatitis B (Adult) 07/11/2016,09/25/2015,2012 Hepatitis B, Unspecified 09/25/2015,09/12,11/13/2012,2012 Influenza Virus, Unspecified 12/14/2017, 11/13/2016,09/25/2015,2014,01/19/2011,01/10/2007 Influenza, IIV3 (Age >=3 years) 01/19/2011 Influenza, IIV4 11/28/2019, 9,12/14/2017,2016,09/25/2015,01/06/2015 Pneumococcal Conj 20-valent (Prevnar 20) 08/21/2021 Pneumococcal Poly,23-Valent (Pneumovax) 01/21/2013,01/14/2013,02/21/2012 Td (Age >=7 Years) 10/28/2002,02/11/1995 Tdap 10/05/2021,02/21/2012 Zoster (Shingrix-RZV, recombinant) 08/21/2021, Family History Medical History Relation Name Comments Cancer Father Pancreas,liver Hypertension Maternal Grandfather Hypertension Maternal Grandmother Hypertension Mother Anesthesia Problem No Family History Cancer-breast No Family History Relation Name Status Comments Father Maternal Grandfather Maternal Grandmother Mother Social History Tobacco Use Types Packs/Day Years Used Date Smoking Tobacco: Every Day Cigarettes 0.3 20 Started: 04/24/2000; Last attempted to quit: 04/24/2020 Smokeless Tobacco: Never Tobacco Cessation:Ready to Q uit: No; Counseling Given: Yes Comments:about 5 a day/ on chantix 1 month ago Alcohol Use Standard Drinks/Week Comments Yes 0 (1 standard drink = 0.6 oz pure alcohol) alcohol use varies. couple times a year to intoxication PHQ-2 Answer Date Recorded PHQ-2 TOTAL SCORE 2 06/24/2020 Social Connections Answer Date Recorded Frequency of Communication with Friends and Fami ly Not on file 02/12/2021 Financial Resource Strain Answer Date R ecorded Difficulty of Paying Living Expenses Not on file 02/12/2021 Difficulty of Paying Living Expenses Not on file 02/12/2021 Sex and Gender Information Value Date Recorded Sex Assigned at Not on file Gender Identity Not on file Sexual Orientation Not on file Obstetrics History Para Term AB IAB SAB Ectopic Multiple Livin g Live Births 6 2 2 4 4 2 Date Outcome GA Total Labor Labor/2nd/3rd Weight Sex Type Anes PTL Laurie A1 A5 Name Clin Term Term SAB SAB SAB SAB Last Filed Vital Signs Vital Sign Reading Time Taken Comments Blood Pressure 112/78 10/05/2021 12:00 PM CDT Pulse 112 10/05/2021 12:00 PM CDT Temperature 36.7 ??C (98.1 ??F) 05/06/2019 9:20 AM CD T Respiratory Rate 16 03/28/2019 8:00 AM EATING DISORDER SPECIALIST Oxygen Saturation 96% 10/05/2021 12:00 PM CDT Inhaled Oxygen Concentration - - Weight 92.8 kg (204 lb 9.6 oz) 10/05/2021 12:00 PM CDT Height 165.1 cm (5' 5) 10/05/2021 12:00 PM CDT Body Mass Index 34.05 10/05/2021 12:00 PM CDT Plan of Treatment Health Maintenance Due Date Last Done Comments HIV for age 15-65 1984 Hepatitis C screening for age 18-79 08/15/1987 Depression screening for age 12+ 06/24/2021 06/24/2020, 06/24/2020, 03/24/2019, Additional history exists Mammogram for age 45-75 08/03/2021 08/04/19 21, 07/12/2018, 01/29/2017, Additional history exists Colonoscopy through age 75 02/06/2022 02/06/2017 BMI (ht and wt on same day) for age 18+ 10/05/2022 10/05/2021, 06/24/2020, 01/22/2019, Additional history exists COVID-19 vaccine series ( season) 2023 08/24/2020, 08/03/2020 Influenza for age 50-64 10/14/2023 11/28/19 20, 11/28/2018, 12/14/2017, Additional history exists Lipids for age 45-75 09/30/2026 09/30/2021, 06/24/2020, 01/22/2019, Additional history exists Tetanus booster 10/06/2031 10/05/2021, 10/2012, 10/28/2002, Additional history exists Pneumococcal series for age 6-64 Aged Out 08/21/2021, 01/21/2013, 01/14/2013, Additional history exists No longer eligible based on patient's age to complete this topic Zoster (shingles) series for age 50+ Completed 08/21/2021, 05/23/2021 Tdap Completed 10/05/2021, 02/21/2012 Procedures Procedure Name Priority Date/Time Associated Diagnosis Comments LIPID PANEL W REFLEX MEASURED LDL Routine 09/30/2021 8:33 AM CDT Controlled type 2 diabetes mellitus without complication, without long-term current use of insulin (HC) XR MAMMO NESHA BILAT DIAG Routine 08/03/2020 2:26 PM CDT Breast pain, left COLONOSCOPY 02/06/2017 1:06 PM EATING DISORDER SPECIALIST from Last 3 Months or Most Recently Relevant to Health Maintenance Results * LIPID PANEL W REFLEX MEASURED LDL (09/30/2021 8:33 AM CDT) CHOLESTEROL,TOTAL 157 100 - 199 mg/dL 09/30/2021 5:49 PM CDT [facility] TRIGLYCERIDES 105 <150 mg/dL 09/30/2021 5:49 PM CDT [facility] HDL CHOLESTEROL 47 >40 mg/dL 5:49 PM CDT [facility] NON-HDL CHOLESTEROL 110 <145 mg/dl 09/30/2021 5:49 PM CDT [facility] CHOL/HDL RATIO 3.34 <4.50 09/30/2021 5:49 PM CDT [facility] LDL CHOLESTEROL 89 <=130 mg/dL 09/30/2021 5:49 PM CDT [facility] VLDL CHOLESTEROL 21 <=30 mg/dL 09/30/2021 5:49 PM CDT [facility] PROVIDER ORDERED STATUS RANDOM 09/30/2021 5:49 PM CDT [facility] Blood BLOOD SPECIMEN / Unknown Venipuncture / Unknown 09/30/2021 8:33 AM CDT 09/30/2021 8:34 AM CDT Umberto Mauricio MD CHEMISTRY [facility] [address] [place] [address], [place] * XR MAMMO NESHA BILAT DIAG (08/03/2020 2:26 PM CDT) Anatomical Region Laterality Modality BREASTS, Breast Left, Breast Right Bilateral Mammography 08/03/2020 3:40 PM CDT Impressions 08/03/2020 4:48 PM CDT Normal BILATERAL 3D mammograms. No evidence of malignancy. RECOMMENDATIONS: Annual BILATERAL screening mammography. Results and recommendations discussed with the patient. BI-RADS Category 1: Negative Dictated by: Denilson Huynh MD @08/03/2020 3:40:38 PM / CRL:jj Narrative 08/03/2020 4:48 PM CDT PATIENTS: You will also receive a letter with your examination results in an easy to read format. ??If you have questions about your results, please contact your referring provider. DIGITAL DIAGNOSTIC BILATERAL MAMMOGRAM USING TOMOSYNTHESIS AND COMPUTER-AIDED DETECTION, 08/03/2020 CLINICAL HISTORY: LEFT breast pain. COMPARISON: 07/12/2018, 01/29/2017. TECHNIQUE: Digital BILATERAL mammogram in four projections. ??Tomosynthesis and CAD utilized. BREAST COMPOSITION: The breasts are almost entirely fatty. FINDINGS: Normal breast tissue. No solid masses or architectural distortion. No suspicious calcifications or adenopathy. Umberto Mauricio MD MAMMO * COLONOSCOPY (02/06/2017 1:06 PM EATING DISORDER SPECIALIST) 02/06/2017 1:06 PM EATING DISORDER SPECIALIST Narrative Transcriptions Alysha Guzman MD - 02/09/2017 8:11 AM CST Endoscopy Patient Name: [facility] Procedure Date: 02/06/2017 Gender: Female Date of : 1970 Admit Type: Ambulatory Procedure: Colonoscopy Proceduralist: Alysha Guzman MD Referring MD: Deisi Guillen Indications/Pre-Op Diagnosis: Abdominal pain in the right upper quadrant Medications: Monitored Anesthesia Care Procedure Description: The patient had risks, benefits and alternatives explained to andgave informed consent. The patient had a stable cardiopulmonary status and judged an adequate candidate for conscious sedation. The endoscope was passed through the anus and advanced to the cecum, identified by appendiceal orifice and ileocecal valve. Thecolonoscopy was performed without difficulty. The patient tolerated the procedure well. The quality of the bowel preparation was adequate and 10percent obscured. The ileocecal valve, appendiceal orifice, and rectum were photographed. Complications: No immediate complications. Estimated Blood Loss & Specimen: Estimated blood loss: none. Specimen collected: Yes and sent to Laboratory Findings: A 3 mm polyp was found in the cecum. The polyp was semi-pedunculated. The polyp was removed with a hot snare. Resection and retrieval were complete. A 2 mm polyp was found in the rectum. The polyp was sessile. Thepolyp was removed with a cold biopsy forceps. Resection and retrieval were complete. The exam was otherwise without abnormality. Biopsies for histology were taken with a cold forceps from the right colon and left colon for evaluation of microscopic colitis. Impressions/Post-Op Diagnosis: - One 3 mm polyp in the cecum, removed with a hot snare. Resected and retrieved. - One 2 mm polyp in the rectum, removed with a cold biopsy forceps. Resected and retrieved. - The examination was otherwise normal. - Biopsies were taken with a cold forceps from the right colon andleft colon for evaluation of microscopic colitis. Recommendation: - Follow up colonoscopy recommendations will depend on the pathologyof the polyp. - A letter will be sent to the patient with pathology results andfuture screening colonoscopy recommendations. - Resume regular diet daily. - Use citrus or orange sugared Metamucil one tablespoon PO daily indefinitely. Alysha Guzman MD 02/09/2017 8:11:41 AM This report has been signed electronically. Note Initiated On: 02/06/2017 1:06 PM Alysha Guzman MD PROCEDURE ORD from Last 3 Months or Most Recently Relevant to Health Maintenance Advance Directives * Full Code (Latest Code Status on File) Date Activated Date Inactivated Comments 03/25/2019 12:00 AM 03/28/2019 3:47 PM Question Answer Comments Code Status Discussion: Not Discussed * Full Code Date Activated Date Inactivated Comments 01/16/2011 4:59 PM 01/19/2011 4:27 PM * Full Code Date Activated Date Inactivated Comments 06/11/2008 2:09 AM 06/11/2008 10:00 PM
--- OUTSIDE RECORDS SUMMARY | 2023-11-20 19:27 | XMS_ITS | Encounter Summary ---
Author Organization [facility] Address [address] [place] [address] Care Team Providers Care Marketing [employer] Name Role Phone Unavailable Primary Care Provider Unavailabl e Reason for Referral * Outpatient (Routine) - Closed Specialty Diagnoses / Procedures Referred By Julio faustin Referred To Contact Orthopedic Surgery Diagnoses Tumor Bone Jose Zhang M.D. [address] [place] [address] [facility] Referral ID Status Reason Start Date Expiration Date Visits Re quested Visits Authorized [id number] Closed 08/13/2023 02/11/2025 1 1 * MRI/CAT/PET Scan (Routine) - Closed Specialty Diagnoses / Procedures Referred By Julio faustin Referred To Contact Radiology Diagnoses Tumor Bone Procedures CT Bone Biopsy Jose Zhang M.D. [address] [place] [address] [facility] Referral ID Status Reason Start Date Expiration Date Visits Re quested Visits Authorized [id number] Closed 08/13/2023 08/12/2024 1 1 Encounter Details Date Type Department Care Team (Late st Contact Info) Description 08/13/2023 Orders Only Department of Orthopedic Surgery in [place], [place] [address] [place] [phone] Jose Zhang M.D. [address] [place] [address] Tumor Bone (Primary Dx) Social History Tobacco Use Types Packs/Day Years Used Date Smoking Tobacco: Never Assessed [facility] Utilities Answer Date Recorded In the [...] your living situation today? [facility] 08/15/2023 Sex and [...] CDT Office Visit Department of Otorhinolaryngology in [place], [place] [address] [place] [phone] Kendra Garcia M.D. [address] [place] [phone] 11/29/2023 7:45 AM CDT Clinical Communication Virtual Review in [place], [place] [address] [place] [address] 11/30/2023 7:00 AM CDT Appointment Department of Laboratory Medicine and Pathology, [facility] in [place], [place] [address] [place] [phone] Eric Renner M.D. [address] [place] [phone] 11/30/2023 9:00 AM CDT Office Visit Division of Hematology in [address] [phone] Aníbal Reece, FAVIOLA, C.N.P., M.S.N. [address] [place] [phone] 11/30/2023 12:15 PM CDT Infusion Department of Oncology in [place], [place] [address] [place] [phone] Eric Renner M.D. [address] [place] [phone] 12/20/2023 7:45 AM PRACTICE ADMINISTRATOR Clinical Communication Virtual Review in [place], [place] [address] [place] [address] 12/21/2023 7:00 AM PRACTICE ADMINISTRATOR Appointment Department of Laboratory Medicine and Pathology, [facility] in [place], [place] [address] [place] [phone] Eric Renner M.D. [address] [place] [phone] 12/21/2023 9:00 AM PRACTICE ADMINISTRATOR Office Visit Division of Hematology in [place], [place] [address] [place] [address] Zulma Hickey APRN, C.N.P., M.S.N. [address] [place] [phone] 12/21/2023 10:00 AM PRACTICE ADMINISTRATOR Infusion Department of Oncology in [place], [place] [address] [place] [phone] Eric Renner M.D. [address] [place] [phone] 01/11/2024 7:00 AM PRACTICE ADMINISTRATOR Appointment Department of Laboratory Medicine and Pathology, [facility] in [place], [place] [address] [place] [address] Eric Renner M.D. [address] [place] [phone] 01/11/2024 9:00 AM PRACTICE ADMINISTRATOR Office Visit Division of Hematology in [place], [place] [address] [place] [phone] Susu Cameron M.D. [address] [place] [phone] 01/11/2024 10:15 AM PRACTICE ADMINISTRATOR Infusion Department of Oncology in [place], [place] [address] [place] [phone] Eric Renner M.D. [address] [place] [phone] 01/14/2024 9:15 AM PRACTICE ADMINISTRATOR Diagnostic Department of Otorhinolaryngology in [place], [place] [address] [place] [phone] Eric Renner M.D. [address] [place] [phone] Wendy Moon Au.D., C.CJacquelinCJacquelin-Grecia [address] [place] [phone] 01/14/2024 1:00 PM PRACTICE ADMINISTRATOR Diagnostic Department of Otorhinolaryngology in [place], [place] [address] [place] [phone] Eric Renner M.D. [address] [place] [phone] Osiel Middleton Au.D. [address] [place] [phone] 01/14/2024 4:00 PM PRACTICE ADMINISTRATOR Clinical Support Department of Otorhinolaryngology in [address] [phone] Eric Renner M.D. [address] [place] [phone] Taj Nicolas, P.TJacquelin [address] [place] [phone] Scheduled Referrals Name Type Priority Associated Diagnoses Order Schedule Orthopedic Surgery - Oncology (non spine) surgical consult (clinic) Outpatient Referral Routine Tumor Bone Expected: 08/13/2023, Expires: 11/12/2024 documented as of this encounter Results * CT Bone Biopsy [...] with the ordering provider Dr. Jose Zhang [phone] who requested the extraosseous soft tissue to [...] discussed with the ordering providerDr. Jose Zhang [phone] who requested the extraosseous soft tissue tobiopsy. [...] Zhang M.D. IMG CT PROCEDURES * (ABNORMAL) LD (Lactate Dehydrogenase) (08/22/2023 8:49 AM CDT) Pathologist [facility] Lactate Dehydrogenase (LD), S 281(H) 122 - 222 U/L 08/22/2023 9:51 AM CDT DT Blood (Blood, Venous) 08/22/2023 8:49 AM CDT 08/22/2023 9:25 AM CDT Jose Zhang M.D. LAB BLOOD NON ADD- ON [facility] [address] [place] [address], [facility] [address] [place] [address] * (ABNORMAL) CRP (C-Reactive Protein) (08/22/2023 8:49 AM CDT) Pathologist [facility] C-Reactive Protein (CRP), S 12.6(H) <5.0 mg/L 08/22/2023 9:51 AM CDT DTL Blood (Blood, Venous) 08/22/2023 8:49 AM CDT 08/22/2023 9:25 AM CDT Jose Zhang M.D. LAB BLOOD ADD-ON [facility] [address] [place] [address], [facility] [address] [place] [address] * (ABNORMAL) Comprehensive Metabolic Panel (08/22/2023 8:49 [...] LAB BLOOD ADD-ON Performing Organization Address City/[facility]/ZIP Co de Phone Number [facility] [address] [place] [address], [facility] [address] [place] [address] * Bvqt-4-Xkzmzerdyvzsy (Beta-2-M) (08/22/2023 8:49 AM CDT) Pathologist [facility] Sezt-8-Wdwybbof bulin, S 2.25 1.21 - 2.70 mcg/mL 08/22/2023 2:38 PM CDT [facility] Blood (Blood, Venous) 08/22/2023 8:49 AM CDT 08/22/2023 12:38 PM CDT Jose Zhang M.D. LAB BLOOD ADD-ON [facility] [address] [place] [address] [facility] [address] [place] [address] * Immunoglobulin Free Light Chains (08/22/2023 8:48 AM CDT) Biehle Free Light Chain, S 1.76 0.3300 - 1.94 mg/dL 08/22/2023 1:34 PM CDT [facility] Lambda Free Light Chain, S 1.97 0.5700 - 2.63 mg/dL 08/22/2023 1:35 PM CDT [facility] Biehle/Lambda FLC Ratio 0.8934 0.2600 - 1.65 08/22/2023 1:35 PM CDT [facility] Blood (Blood, Venous) 08/22/2023 8:48 AM CDT 08/22/2023 1:04 PM CDT Jose Zhang M.D. LAB BLOOD ADD-ON Performing Organization Address City/[facility]/ZIP Co de Phone Number [facility] [address] [place] [address] [facility] [address] [place] [address] * Sedimentation Rate (08/22/2023 8:48 AM CDT) Sedimentation Rate, B 16 2 - 22 mm/h 08/22/2023 11:23 AM CDT DTL Blood (Blood, Venous) 08/22/2023 8:48 AM CDT 08/22/2023 9:14 AM CDT Jose Zhang M.D. LAB BLOOD ADD-ON Performing Organization Address [facility]/ZIP Co de Phone Number [facility] [address] [place] [address], [facility] [address] [place] [address] * (ABNORMAL) CBC with Differential, Blood (08/22/2023 [...] - 6.45 x10(9)/L 08/22/2023 10:52 AM CDT [facility] Comment:Rechecked Lymphocytes 2.44 0.95 - 3.07 x10(9)/L 08/22/2023 10:52 AM CDT DTL Monocytes 0.69 0.26 - 0.81 x10(9)/L 08/22/2023 10:52 AM CDT DTL Eosinophils 0.12 0.03 - 0.48 x10(9)/L 08/22/2023 10:52 AM CDT DTL Basophils 0.03 0.01 - 0.08 x10(9)/L 08/22/2023 10:52 AM CDT DTL Blood (Blood, Venous) 08/22/2023 8:48 AM CDT 08/22/2023 9:14 AM CDT Jose Zhang M.D. LAB BLOOD ADD-ON [facility] [address] [place] [address], [facility] DTL [facility] [address] [place] [address] [facility] [address] [place] [address] documented in this encounter Visit Diagnoses Diagnosis Tumor Bone- Primary Tumor Bone documented in this encounter
--- OUTSIDE RECORDS SUMMARY | 2023-11-20 19:27 | XMS_ITS | Encounter Summary ---
Author Organization [facility] Address [address] [place] [address] Care Team Providers Care Packing Clerk Name Role Phone Elsewhere, Pcp Primary Care Provider Unavailabl e Encounter Details Date Type Department Care Team (Late st Contact Info) Description 08/17/2023 Clinical Communication Department of Orthopedic Surgery in [place], [place] [address] [place] [address] Jose Zhang M.D. [address] [place] [address] Social History Tobacco Use Types Packs/Day Years Used Date Smoking Tobacco: Never Assessed [facility] Utilities Answer Date Recorded In the [...] Answer Date Recorded Employment status Unemployed/not in [employer] paid workforce but seeking employment 08/15/2023 Housing Stability Answer Date Recorded What is your living situation today? I have a [facility] place to live 08/15/2023 Sex [...] CDT Office Visit Department of Otorhinolaryngology in [place], [place] [address] [place] [phone] Kendra Garcia M.D. [address] [place] [phone] 11/29/2023 7:45 AM CDT Clinical Communication Virtual Review in [place], [place] [address] [place] [address] 11/30/2023 7:00 AM CDT Appointment Department of Laboratory Medicine and Pathology, [facility], in [place], [place] [address] [place] [phone] Eric Renner M.D. [address] [place] [phone] 11/30/2023 9:00 AM CDT Office Visit Division of Hematology in [place], [place] [address] [place] [phone] KleAníbal tomlinson APRN, C.N.P., M.S.N. [address] [place] [phone] 11/30/2023 12:15 PM CDT Infusion Department of Oncology in [place], [place] [address] [place] [phone] Eric Renner M.D. [address] [place] [phone] 12/20/2023 7:45 AM SHOE PLANNER Clinical Communication Virtual Review in [place], [place] [address] [place] [address] 12/21/2023 7:00 AM SHOE PLANNER Appointment Department of Laboratory Medicine and Pathology, [facility] in [place], [place] [address] [place] [phone] Eric Renner M.D. [address] [place] [phone] 12/21/2023 9:00 AM SHOE PLANNER Office Visit Division of Hematology in [place], [place] [address] [place] [phone] Zulma Hickey APRN, C.N.P., M.S.N. [address] [place] [phone] 12/21/2023 10:00 AM SHOE PLANNER Infusion Department of Oncology in [place], [place] [address] [place] [phone] Eric Renner M.D. [address] [place] [phone] 01/11/2024 7:00 AM SHOE PLANNER Appointment Department of Laboratory Medicine and Pathology, [facility] in [place], [place] [address] [place] [phone] Eric Renner M.D. [address] [place] [phone] 01/11/2024 9:00 AM SHOE PLANNER Office Visit Division of Hematology in [place], [place] [address] [place] [address] Susu Cameron M.D. [address] [place] [phone] 01/11/2024 10:15 AM SHOE PLANNER Infusion Department of Oncology in [place], [place] [address] [place] [address] Eric Renner M.D. [address] [place] [phone] 01/14/2024 9:15 AM SHOE PLANNER Diagnostic Department of Otorhinolaryngology in [place], [place] [address] [place] [address] Eric Renner M.D. [address] [place] [phone] Wendy Moon Au.D., C.C.CJacquelin-A [address] [place] [phone] 01/14/2024 1:00 PM SHOE PLANNER Diagnostic Department of Otorhinolaryngology in [place], [place] [address] [place] [address] Eric Renner M.D. [address] [place] [phone] Osiel Middleton Au.D. [address] [place] [phone] 01/14/2024 4:00 PM SHOE PLANNER Clinical Support Department of Otorhinolaryngology in [place], [place] [address] [place] [phone] Eric Renner M.D. [address] [place] [phone] Taj Nicolas, P.T. [address] [place] [phone] documented as of this encounter Visit Diagnoses Not on filedocumented in this encounter Care Teams Packing Clerk Relationship Specialty Start Date End Date Elsewhere, Pcp PCP - General Internal Medicine 08/21/23 documented as of this encounter
--- OUTSIDE RECORDS SUMMARY | 2023-11-20 19:27 | XMS_ITS | Encounter Summary ---
Author Organization [facility] Address [address] [place] [id number] Care Team Providers Care Corporate Director Talent Assessment Name Role Phone Elsewhere, Pcp Primary Care Provider Unavailabl e Reason for Visit * Reason Onset Date Comments Appointment 2023 Encounter Details Date Type Department Care Team (Late st Contact Info) Description 2023 Clinical Communication Department of Orthopedic Surgery in [place], [place] [address] [place] [phone] Jose Zhang M.D. [address] [place] [address] Appointment Social History Tobacco Use Types Packs/Day Years Used Date Smoking Tobacco: Never Assessed [facility] Utilities Answer Date Recorded In the [...] Date Recorded Employment status Unemployed/not in th [employer] paid workforce but seeking employment 08/15/2023 Housing Stability Answer Date Recorded What is your living situation today? I have a [facility] place to live 08/15/2023 Sex [...] CDT Office Visit Department of Otorhinolaryngology in [place], [place] [address] [place] [phone] Kendra Garcia M.D. [address] [place] [phone] 11/29/2023 7:45 AM CDT Clinical Communication Virtual Review in [place], [place] 200 [place] [address] 11/30/2023 7:00 AM CDT Appointment Department of Laboratory Medicine and Pathology, [facility], in [place], [place] [address] [place] [phone] Eric Renner M.D. [address] [place] [phone] 11/30/2023 9:00 AM CDT Office Visit Division of Hematology in [place], [place] [address] [place] [phone] Aníbal Reece APRN, C.N.Ad., M.S.N. [address] [place] [phone] 11/30/2023 12:15 PM CDT Infusion Department of Oncology in [place], [place] [address] [place] [phone] Eric Renner M.D. [address] [place] [phone] 12/20/2023 7:45 AM UPPER LEATHER CUTTER Clinical Communication Virtual Review in [place], [place] 200 [place] [address] 12/21/2023 7:00 AM UPPER LEATHER CUTTER Appointment Department of Laboratory Medicine and Pathology, [facility] in [place], [place] [address] [place] [phone] Eric Renner M.D. [address] [place] [phone] 12/21/2023 9:00 AM UPPER LEATHER CUTTER Office Visit Division of Hematology in [address] [phone] Zulma Hickey APRN, C.NMaggi., M.S.N. [address] [place] [phone] 12/21/2023 10:00 AM UPPER LEATHER CUTTER Infusion Department of Oncology in [place], [place] [address] [place] [phone] Eric Renner M.D. [address] [place] [phone] 01/11/2024 7:00 AM UPPER LEATHER CUTTER Appointment Department of Laboratory Medicine and Pathology, [facility] in [place], [place] [address] [place] [address] [place] [phone] Eric Renner M.D. [address] [place] [phone] 01/11/2024 9:00 AM UPPER LEATHER CUTTER Office Visit Division of Hematology in [place], [place] [address] [place] [phone] Susu Cameron M.D. [address] [place] [phone] 01/11/2024 10:15 AM UPPER LEATHER CUTTER Infusion Department of Oncology in [place], [place] [address] [place] [address] Eric Renner M.D. [address] [place] [phone] 01/14/2024 9:15 AM UPPER LEATHER CUTTER Diagnostic Department of Otorhinolaryngology in [place], [place] [address] [place] [phone] Eric Renner M.D. [address] [place] [phone] Wendy Moon Au.D., C.C.CJacquelin-A [address] [place] [phone] 01/14/2024 1:00 PM UPPER LEATHER CUTTER Diagnostic Department of Otorhinolaryngology in [place], [place] [address] [place] [address] Eric Renner M.D. [address] [place] [phone] Osiel Middleton Au.D. [address] [place] [phone] 01/14/2024 4:00 PM UPPER LEATHER CUTTER Clinical Support Department of Otorhinolaryngology in [place], [place] [address] [place] [phone] Eric Renner M.D. [address] [place] [phone] Taj Nicolas, P.TJacquelin [address] [place] [phone] documented as of this encounter Visit Diagnoses Not on filedocumented in this encounter Care Teams Corporate Director Talent Assessment Relationship Specialty Start Date End Date Elsewhere, Pcp PCP - General Internal Medicine 08/21/23 documented as of this encounter
[2023-11-20 19:29] LABS: Lactate* 1.6 mmol/L (0.5-1.9)
[2023-11-20 19:32] LABS: Basophils Percent Auto 2.9 % (0.0-3.0); Eosinophils Percent Auto 1.4 % (0.0-7.0); Mean Corpuscular HGB Conc 33 gm/dL (32-36); Mean Corpuscular Hemoglobin 32 pg (26-34); Mean Corpuscular Volume 97 fL (80-100); Monocytes Percent Auto 25.7 % (0.0-11.0); Platelet Count* 124 K/uL (140-440); RDW Coefficient of Variation % 14.5 % (11.5-15.5); Red Blood Count 3.41 m/uL (4.00-5.20)
[2023-11-20 19:38] LABS: Slide Review Reflex Yes
[2023-11-20 19:47] LABS: Albumin* 3.9 g/dL (3.3-5.0); Chloride* 104 mmol/L (96-114)
[2023-11-20 19:48] LABS: Potassium* 3.6 mmol/L (3.6-5.1); Sodium* 136 mmol/L (135-149)
[2023-11-20 19:50] LABS: Creatinine* 0.6 mg/dL (0.5-1.5); Est. Creatinine Clearance* 92.56; Estimated Glomerular Filt Rate 107 ml/min
[2023-11-20 19:51] LABS: Alanine Aminotransferase* 17 U/L (4-35); Alkaline Phosphatase* 82 U/L (40-150); Anion Gap 4 mEq/L (7-15); Aspartate Amino Transferase* 16 U/L (12-35); Bilirubin Direct* 0.1 mg/dL (0.0-0.5); Bilirubin Total* 0.3 mg/dL (0.1-1.5); Blood Urea Nitrogen* 11 mg/dL (7-30); Calcium* 8.9 mg/dL (8.4-10.6); Carbon Dioxide* 28 mmol/L (20-32); Glucose* 165 mg/dL (60-115); Total Protein* 6.4 g/dL (6.0-8.3)
[2023-11-20 20:06] LABS: C Reactive Protein* 13.4 mg/dL (0.5-1.0)
[2023-11-20 20:08] LABS: Procalcitonin* 0.07 ng/mL (<0.50)
[2023-11-20 20:10] LABS: PCR FLU A Negative PCR FLU A (Negative); PCR FLU B Negative PCR FLU B (Negative); PCR RSV Negative PCR RSV (Negative); SARS PCR* Negative SARS-CoV-2 (Negative)
[2023-11-20 20:20] LABS: Appearance Urine Turbid (Clear); Bilirubin Urine Negative (Negative); Blood Urine Negative (Negative); Color Urine Yellow (Yellow); Glucose Urine Negative (Negative); Ketones Urine Trace (Negative); Leukocyte Esterase Urine Negative (Negative); Nitrite Urine Negative (Negative); Protein Urine Negative (Negative); Urobilinogen Urine 0.2 (0.2-1.0); pH Urine 7.5 (5.0-8.5)
[2023-11-20] MEDS: PIPERACILLIN/TAZOBACTAM 3.375 GM in 0.9 % SODIUM CHLORIDE Mini-bag 100 ML IVPB (20:26)
[2023-11-20 20:29] LABS: Slide Review Acceptable Review (Acceptable)
[2023-11-20 20:30] LABS: RBC Urine 0-2 (0-2); Squamous Epithelial Cell Urine Few (None-Few); WBC Urine 0-2 (0-5)
[2023-11-20] MEDS: 0.9 % SODIUM CHLORIDE 1000 ml 1,000 ML IV (22:11)
--- NOTE | 2023-11-20 22:25 | PM.IMHP1 ---
Hospitalist- H&P: HPI History of Present Illness Date Seen: 11/20/23 Chief complaint: Fever, short of breath Narrative: Ana Fuller is a 53 year old female with past medical history of Diffuse Large B Cell Lymphoma, DM, COPD, HLD & severe recurrent depression with psychosis. Patient is being treated with R-CHOP for advanced stage DLBCL presenting today with body aches that started after her last session of chemotherapy back in November 08. In addition, fever and chills started today. Patient states that she is having cough at baseline but recently she has been coughing more frequent, but it is a dry cough no phlegm and no blood. Patient also added that she has combined COPD and asthma and for the past 6 months she did not have to use her nebulizer, she was only using her inhalers, but for the past week she has been using her nebulizer in addition to her inhalers due to increased shortness of breath. She has also orthopnea at baseline she mentioned that she cannot breathe well when laying flat but that has been there for years. No history of cardiac disease or heart catheterization. The patient mentions that this is the 1st time she is having neutropenic fever though her wbc's ones went down to few 100s but no fever or other symptoms. Patient denies new headache, visual changes, chest pain, skin rash, joint pain, toothache or urinary symptoms. She had a few intermittent episodes of loose bowel movements/diarrhea recently but she thinks it is due to using GLP 1 agonist injections. She only had 1 formed/normal bowel movement today morning. Also she had that she has intermittent abdominal pain. No history of peptic ulcer disease or gastritis. At the ED patient was tachycardic, hemodynamically stable. No murmurs at P/E. WBCs count was 700 and absolute neutrophil count was 100. Review of Systems Status of ROS: Reports: 10 or more systems reviewed and unremarkable except as noted in History and below [facility] Medical History Stomatitis ?K12.1 - Other forms of stomatitis (ICD-10) At risk for inadequate pain control ?Z91.89 - Other specified personal risk factors, not elsewhere classified (ICD-10) Diffuse large B cell lymphoma ?C83.30 - Diffuse large B-cell lymphoma, unspecified site (ICD-10) Bone lesion ?M89.9 - Disorder of bone, unspecified (ICD-10) SOB (shortness of breath) ?R06.02 - Shortness of breath (ICD-10) Cough ?R05.9 - Cough, unspecified (ICD-10) Rib fracture ?S22.39XA - Fracture of one rib, unspecified side, initial encounter for closed fracture (ICD-10) CAD (coronary artery disease) ?I25.10 - Atherosclerotic heart disease of [place] coronary artery without angina pectoris (ICD-10) Tubular adenoma ?D36.9 - Benign neoplasm, unspecified site (ICD-10) Eyelid dermatitis, allergic/contact ?H01.119 - Allergic dermatitis of unspecified eye, unspecified eyelid (ICD-10) Elevated TSH ?R79.89 - Other specified abnormal findings of blood chemistry (ICD-10) Hoarseness of voice ?R49.0 - Dysphonia (ICD-10) Screening mammogram for breast cancer ?Z12.31 - Encounter for screening mammogram for malignant neoplasm of breast (ICD-10) Smoking greater than 40 pack years ?F17.210 - Nicotine dependence, cigarettes, uncomplicated (ICD-10) Antipsychotic-induced akathisia ?G25.71 - Drug induced akathisia (ICD-10) ?T43.505A - Adverse effect of unspecified antipsychotics and neuroleptics, initial encounter (ICD-10) Radicular pain ?M54.10 - Radiculopathy, site unspecified (ICD-10) Chronic constipation ?K59.09 - Other constipation (ICD-10) DOS (diffuse esophageal spasm) ?K22.4 - Dyskinesia of esophagus (ICD-10) Diverticulitis ?K57.92 - Diverticulitis of intestine, part unspecified, without perforation or abscess without bleeding (ICD-10) Encounter for smoking cessation counseling ?Z71.6 - Tobacco abuse counseling (ICD-10) Neuropathy ?G62.9 - Polyneuropathy, unspecified (ICD-10) Migraine ?G43.909 - Migraine, unspecified, not intractable, without status migrainosus (ICD-10) Depression ?F32.A - Depression, unspecified (ICD-10) Hand pain ?M79.643 - Pain in unspecified hand (ICD-10) Gestational diabetes ?O24.419 - Gestational diabetes mellitus in , unspecified control (ICD-10) Diabetes mellitus type 2, controlled ?E11.9 - Type 2 diabetes mellitus without complications (ICD-10) Cigarette smoker ?F17.210 - Nicotine dependence, cigarettes, uncomplicated (ICD-10) COPD (chronic obstructive pulmonary disease) ?J44.9 - Chronic obstructive pulmonary disease, unspecified (ICD-10) Hyperlipemia ?E78.5 - Hyperlipidemia, unspecified (ICD-10) Surgical History Hx of tonsillectomy ?Z90.89 - Acquired absence of other organs (ICD-10) History of repair of anterior cruciate ligament of right knee ?Z98.890 - Other specified postprocedural states (ICD-10) S/P NINA-BSO (total abdominal hysterectomy and bilateral salpingo-oophorectomy) ?Z90.710 - Acquired absence of both cervix and uterus (ICD-10) ?Z90.722 - Acquired absence of ovaries, bilateral (ICD-10) ?Z90.79 - Acquired absence of other genital organ(s) (ICD-10) History of endometriosis ?Z87.42 - Personal history of other diseases of the female genital tract (ICD-10) Hx laparoscopic cholecystectomy ?Z90.49 - Acquired absence of other specified parts of digestive tract (ICD-10) History of carpal tunnel surgery of right wrist ?Z98.890 - Other specified postprocedural states (ICD-10) Hx of hernia repair ?Z98.890 - Other specified postprocedural states (ICD-10) ?Z87.19 - Personal history of other diseases of the digestive system (ICD-10) Hx of section ?Z98.891 - History of uterine scar from previous surgery (ICD-10) History of ear surgery ?Z98.890 - Other specified postprocedural states (ICD-10) Hx of colonoscopy ?Z98.890 - Other specified postprocedural states (ICD-10) Hx of esophagogastroduodenoscopy ?Z98.890 - Other specified postprocedural states (ICD-10) H/O dilation and curettage ?Z98.890 - Other specified postprocedural states (ICD-10) Family History Father Pancreatic cancer Long QT syndrome Brother Bipolar 1 disorder Schizophrenia Mother Coronary artery disease Social History Smoking Status: Current every day smoker Non-prescribed substance use: denies use Meds Home Medications and Allergies Home Medications ?Medication ?Instructions ?Recorded ?Confirmed ?Type oxycodone 5 mg capsule 5 mg PO BID PRN 09/18/23 10/24/23 History Allergies Allergy/AdvReac Type Severity Reaction Status Date / Time No Known Allergies Allergy Unknown Verified 10/24/23 09:29 Exam Narrative: Exam Narrative: Physical exam GENERAL: Comfortable, was having food at the time I visited there, no acute distress but a bit anxious. HEAD AND NECK: Atraumatic, normocephalic, lost her hair. CARDIOVASCULAR: RRR. Normal S1, S2. No murmurs. No lower limb edema. RESPIRATORY: Clear to auscultation B/L. Good air entry B/L. No wheezes or rhonchi. GASTROINTESTINAL: Not distended, some epigastric tenderness to palpation. NEUROLOGY: Alert, awake, oriented X 3. Normal speech. PSYCH: Normal mood, normal affect. Const: Vital Signs, click to edit/add: Vital Signs - 24 hr 11/20/23 18:34 11/20/23 18:45 11/20/23 18:58 Temperature 103.2 F H Pulse Rate 124 H Pulse Rate [Left P ulse Oximeter] 134 H Respiratory Rate 20 Blood Pressure Blood Pressure [Ri ght Upper Arm] 123/79 Pulse Oximetry 92 90 86 L Oxygen Delivery Me thod Room Air 11/20/23 19:00 11/20/23 19:02 11/20/23 19:24 Temperature 103.2 F H 103.2 F H Pulse Rate 134 H Pulse Rate [Left P ulse Oximeter] Respiratory Rate Blood Pressure Blood Pressure [Ri ght Upper Arm] Pulse Oximetry 91 Oxygen Delivery Me thod 11/20/23 19:24 11/20/23 19:25 11/20/23 19:30 Temperature Pulse Rate 122 H 118 H 114 H Pulse Rate [Left P ulse Oximeter] Respiratory Rate Blood Pressure 132/67 Blood Pressure [Ri ght Upper Arm] Pulse Oximetry 92 93 90 Oxygen Delivery Me thod 11/20/23 19:32 11/20/23 19:45 11/20/23 19:47 Temperature Pulse Rate 114 H 113 H 113 H Pulse Rate [Left P ulse Oximeter] Respiratory Rate Blood Pressure 102/55 L 107/47 L Blood Pressure [Ri ght Upper Arm] Pulse Oximetry 90 89 89 Oxygen Delivery Me thod 11/20/23 19:51 11/20/23 20:00 11/20/23 20:02 Temperature 100.0 F H Pulse Rate 118 H 124 H Pulse Rate [Left P ulse Oximeter] Respiratory Rate Blood Pressure 122/70 Blood Pressure [Ri ght Upper Arm] Pulse Oximetry 95 95 Oxygen Delivery Me od 11/20/23 20:15 11/20/23 20:17 11/20/23 20:30 Temperature Pulse Rate 111 H 110 H 110 H Pulse Rate [Left P ulse Oximeter] Respiratory Rate Blood Pressure 113/59 L Blood Pressure [Ri ght Upper Arm] Pulse Oximetry 91 91 [facility] 20:31 11/20/23 20:45 11/20/23 20:47 Temperature Pulse Rate 108 H 108 H 113 H Pulse Rate [Left P ulse Oximeter] Respiratory Rate Blood Pressure 92/37 L 121/69 Blood Pressure [Ri ght Upper Arm] Pulse Oximetry 92 92 96 [facility] 11/20/23 21:44 Temperature 99.2 F Pulse Rate Pulse Rate [Left P ulse Oximeter] Respiratory Rate Blood Pressure Blood Pressure [Ri ght Upper Arm] Pulse Oximetry Oxygen Delivery Me od Hospitalist - H&P: Result Labs Labs: Short CBC 11/20/23 Range/Units 19:10 WBC 0.70 L* (4.50-11.00) K/uL Hgb 11.0 L (12.0-16.0) gm/dL Hct 33.0 (33.0-51.0) % Plt Count 124 L (140-440) K/uL BMP 11/20/23 19:10 Sodium 136 Potassium 3.6 Chloride 104 Carbon Dioxide 28 BUN 11 Creatinine 0.6 Glucose 165 H Calcium 8.9 Liver Function 11/20/23 Range/Units 19:10 Total Bilirubin 0.3 (0.1-1.5) mg/dL Direct Bilirubin 0.1 (0.0-0.5) mg/dL AST 16 (12-35) U/L ALT 17 (4-35) U/L Alkaline Phosphatase 82 (40-150) U/L Albumin 3.9 (3.3-5.0) g/dL Urine 11/20/23 Range/Units 19:10 Urine Color Yellow (Yellow) Urine Appearance Turbid A (Clear) Urine pH 7.5 (5.0-8.5) Ur Specific Pope 1.020 (1.000-1.030) Urine Protein Negative (Negative) Urine Glucose (UA) Negative (Negative) Imaging Chest x-ray: Radiologist's impression: Chest radiographs, 2 views. COMPARISON: None. FINDINGS: Cardiovascular/Mediastinum: Normal heart size. Unremarkable. Lungs: No focal consolidation. Linear band like opacification of the lungs bilaterally, likely subsegmental atelectasis and/or scarring. Airways: Trachea remains midline. Pleura: No pleural effusions or pneumothorax. Bones: No acute osseous abnormalities. Upper abdomen: Unremarkable. IMPRESSION: No acute cardiopulmonary process. Dictated by Stevo Sheldon MD @ 11/20/2023 7:28:36 PM Assessment and Plan Assessment and plan (1) Neutropenic fever: Problem comment: -Patient is being treated with R-CHOP for advanced stage DLBCL presenting today with body aches that started after her last session of chemotherapy back in November 08. -she is having cough at baseline but recently she has been coughing more frequently (dry cough no phlegm) + more short of breath -WBCs count is 700 and absolute neutrophil count is 100. -Empiric IV Abx with Zosyn. -IVF ordered, 1 L bolus as pt was tachycardic -May need to discuss the case with her entry level paralegal/oncologist for more at [facility] recommendations Dr Eric Monzon. -R-chop chemotherapy regimen including doxorubicin, patient needs outpatient echo to check her ejection fraction. Status: Acute (2) Diffuse large B cell lymphoma: Problem comment: stage IV metastatic her last session of chemotherapy back in November 08. Status: Acute (3) Stomatitis: Problem comment: Uses lidocaine. Status: Acute (4) SOB (shortness of breath): Problem comment: - Patient has combined COPD and asthma and for the past 6 months she did not have to use her nebulizer, she was only using her inhalers, but for the past week she has been using her nebulizer in addition to her inhalers due to increased shortness of breath. - chest x-ray without acute pathology, infiltrates or pleural effusion. Status: Acute (5) Cough: Problem comment: - Patient states that she is having cough at baseline but recently she has been coughing more frequent, but it is a dry cough no phlegm and no blood. - differential diagnosis includes but is not limited to GERD, post viral, cough secondary to postnasal drip or asthma. - need to rule out congestive heart failure with an echo as an outpatient especially that patient gets chemotherapy containing doxorubicin. Status: Acute (6) Diabetes mellitus type 2, controlled: Problem comment: Low-dose insulin sliding scale Status: Acute (7) COPD (chronic obstructive pulmonary disease): Problem comment: Asthma combined with chronic bronchitis Status: Acute (8) Hyperlipemia: Problem comment: Resume her statin Status: Chronic (9) Depression: Problem comment: severe recurrent depression with psychosis Resume bupropion. Status: Acute Plan As above Total Time Spent Total Time Spent: Time spent: Today I spent 75 minutes seeing the patient, discussing the patient with ER staff, reviewing Expanse and EPIC notes/diagnostics, discussing the care plan with our care time that includes social work, PT/OT, pharmacy and documenting my impressions and plan in the medical record.
[2023-11-21] MEDS: PIPERACILLIN/TAZOBACTAM 4.5 GM in 0.9 % SODIUM CHLORIDE Mini-bag 100 ML IVPB ×4 (02:17→20:17)
[2023-11-21] MEDS: IBUPROFEN 400 MG TABLET 800 MG PO ×3 (02:20→21:12)
[2023-11-21] MEDS: OXYCODONE 5 MG TABLET PO ×4 (02:21→21:18)
[2023-11-21 02:49] VITALS: BP 104/67; PULSE 97; RESP 20; TEMP 36.9; O2SAT 92
--- NOTE | 2023-11-21 06:12 | PC.NURSE ---
End of shift report [phone]: Patient admitted to floor at 2099 with neutropenic fever. Denies any SOB at this time but does state that she has SOB intermittently, well managed with inhalers. Intermittent cough that is dry throughout the night but moist during the day, unable to expectorate sputum. Lung sounds clear to auscultation. O2 sats >92% on room air. Fever and chills which prompted ER visit as patient is currently receiving chemo for Large B cell lymphoma. Last chemo treatment on 11/06. Has remained afebrile throughout the shift, continues to have chills and periods of sweating, bedding and gown changed x 2 due to moisture. Pain to low back reported, well managed with PRN oxycodone and PRN ibuprofen. Ambulates with SBA. Denies any nausea or vomiting.
[2023-11-21 06:32] LABS: Basophils Percent Auto 2.1 % (0.0-3.0); Eosinophils Percent Auto 2.1 % (0.0-7.0); Hematocrit 32.1 % (33.0-51.0); Hemoglobin* 10.6 gm/dL (12.0-16.0); Immature Granulocytes Pct Auto 1.1 %; Lymphocytes Percent Auto 51.6 % (20-44); Mean Corpuscular HGB Conc 33 gm/dL (32-36); Mean Corpuscular Hemoglobin 33 pg (26-34); Mean Corpuscular Volume 99 fL (80-100); Monocytes Percent Auto 30.5 % (0.0-11.0); Neutrophils Percent Auto 12.6 % (42.0-72.0); Platelet Count* 112 K/uL (140-440); RDW Coefficient of Variation % 14.8 % (11.5-15.5); Red Blood Count 3.26 m/uL (4.00-5.20)
[2023-11-21 06:39] LABS: Slide Review Reflex No; White Blood Count* 0.95 K/uL (4.50-11.00)
[2023-11-21 06:55] LABS: Albumin* 3.3 g/dL (3.3-5.0); Chloride* 108 mmol/L (96-114); Sodium* 141 mmol/L (135-149)
[2023-11-21 06:56] LABS: Potassium* 4.2 mmol/L (3.6-5.1)
[2023-11-21 06:58] LABS: Alanine Aminotransferase* 15 U/L (4-35); Alkaline Phosphatase* 72 U/L (40-150); Anion Gap 3 mEq/L (7-15); Aspartate Amino Transferase* 17 U/L (12-35); Bilirubin Total* 0.3 mg/dL (0.1-1.5); Blood Urea Nitrogen* 10 mg/dL (7-30); Carbon Dioxide* 30 mmol/L (20-32); Creatinine* 0.6 mg/dL (0.5-1.5); Est. Creatinine Clearance* 92.56; Estimated Glomerular Filt Rate 107 ml/min; Glucose* 126 mg/dL (60-115); Total Protein* 5.8 g/dL (6.0-8.3)
--- NOTE | 2023-11-21 06:58 | CRLHL7_ITS ---
For Patients: As a result of the Century Cures Act, medical imaging exams and procedure reports are released immediately into your electronic medical record. You may view this report before your referring provider. If you have questions, please contact your health care provider. INDICATION: Large B-cell lymphoma, on treatment, neutropenic fever. COMPARISON: Chest CT 03/12/2023, CT abdomen pelvis 06/21/2023 TECHNIQUE: CT chest, abdomen, and pelvis with contrast. Multiplanar axial, coronal, and sagittal reformats are included. MIP images to improve detection of pulmonary nodules are included. Intravenous contrast: 84 mL Isovue 370. FINDINGS: CHEST Airway: Mild circumferential bronchial wall thickening. No endobronchial lesions or significant endobronchial impaction. Lungs: Diffuse tree-in-bud nodular opacities. Small focal sub solid consolidation in the posterior apical right upper lobe measures about 2 centimeters. No large consolidation. No cavities or necrosis. Pleura: No pleural effusion. No pneumothorax. Lymph nodes: No thoracic adenopathy. Mediastinum: No pneumomediastinum. No mass. Heart and great vessels: No pericardial effusion. Normal cardiac chamber size. Scattered atherosclerotic plaques. No aortic aneurysm. Normal caliber main pulmonary artery. Chest wall: Normal. No masses. ABDOMEN AND PELVIS Liver: Normal. No mass. Gallbladder and bile ducts: Cholecystectomy. No bile duct dilation. Pancreas: Normal. Spleen: Normal spleen size and enhancement. Adrenal glands: Normal. Kidneys: Normal parenchyma. No cyst or solid mass. No calculi. No urinary tract dilation. Urinary bladder: Barely filled. Pelvis: No cyst or mass. Vessels: Atherosclerotic vascular calcifications. No aortic aneurysm. Mesenteric vessels are widely patent. Bowel: No dilated or inflamed bowel. Appendix not seen. Heavy diverticular burden in the distal descending colon and sigmoid colon. No diverticulitis. Moderate stool burden. Lymph nodes: Previously seen hazy michael mass at the aortic bifurcation and extending along the right common iliac chain has resolved. Very minimally prominent left upper periaortic lymph node between the cure of the diaphragm in the adrenal gland measures 1.9 x 0.7 centimeters on series 2, image 147 and is unchanged compared to prior. This lymph node is not technically enlarged by size criteria but it is somewhat prominent compared to other regional lymph nodes. Peritoneum: No ascites. Abdominal wall: No hernia. BONES: No acute or healing fractures. There is an old healed right rib fractures. No change in the appearance of the left iliac bone with some irregular patchy sclerosis and lucency as well as ground-glass density, may be fibrous dysplasia. No discrete focally destructive bone lesion. IMPRESSION: 1. Multifocal infectious airways disease. Single small consolidative opacity in the right upper lobe may be an area of developing bronchopneumonia. No cavitation or parapneumonic effusion. 2. Resolved periaortic and right iliac michael mass. No new or worsening adenopathy or soft tissue masses. No splenomegaly. No visceral lesions seen. Please note that all CT scans at this facility use dose modulation, iterative reconstruction, and/or weight-based dosing when appropriate to reduce radiation dose to as low as reasonably achievable. Dictated by Sara Wagoner MD @ 11/21/2023 11:06:28 AM (Electronically Signed)
[2023-11-21 06:59] LABS: Calcium* 8.8 mg/dL (8.4-10.6)
[2023-11-21 07:45] LABS: NT Pro B Type NatriureticPept* 282 pg/mL
[2023-11-21 07:50] LABS: C Reactive Protein* 19.3 mg/dL (0.5-1.0)
[2023-11-21 08:00] VITALS: BP 115/77; PULSE 100; PULSE 96; RESP 20; TEMP 36.7; O2SAT 97
[2023-11-21] MEDS: ATORVASTATIN CALCIUM 40 MG TABLET 80 MG PO (08:09)
[2023-11-21] MEDS: SODIUM CHLORIDE 0.9 % (FLUSH) 10 ML SYRINGE 5 ML IVF ×2 (08:10→21:12)
[2023-11-21] MEDS: BUDESONIDE FORMOTEROL 2 EACH IH ×2 (08:11→21:13)
--- NOTE | 2023-11-21 08:20 | P.IMPN_ITS ---
Progress Note: A&P Assessment and plan (1) Multifocal pneumonia: Problem details: -azithromycin oral (500mg x 3 doses) -IV zosyn 4.5mg dose q 6 -resp hygiene and support (duo nebs; IS, aerobika) -sputum culture ordered -legionella and strep pneumo neg -PCR multiplex for viral etiologies? -blood culture NGTD -urine culture NGTD Status: Acute (2) Abnormal echocardiogram: Problem details: -mass or MAC (mitral annulus calcification) or vegetation on mitral valve -follow blood culture; discuss with cardiology TBD (awaiting final report from cards) Status: Acute (3) Neutropenic fever: Problem details: -last R-CHOP was 11/09/23. no growth factor -DLBCL, advanced stage IPI24: 33% event risk in 24mo PUMPER HEAD-IPI: 3 (intermediate risk) R-IPI: 2 (good prognosis) M-spike: absent Peripheral blood flow: No clonal B-cell population Status: Acute (4) Diffuse large B cell lymphoma: Problem details: stage IV metastatic her last session of chemotherapy back in November 08. #1 DLBCL, advanced stage Returns to clinic prior to cycle 3 of R-CHOP for DLBCL. Tolerated cycle 2 without major issues. Interim PET-CT shows a great response. Will proceed with cycle 3 as scheduled, without dose reductions. DLBCL, advanced stage R-CHOP Cycle 3, 11/09/23. No growth factor. Patient is a 53 y.o. woman with previous medical history significant for tobacco use, hyperlipidemia, type 2 diabetes, COPD, and major depressive disorder with psychotic features, whose hematological history may be summarized as follows: August 07, 2023: MRI of the pelvis with and without contrast obtained to evaluate persistent/progressive pain of the left hip reportedly showed abnormalities on the left hip. Images not reviewed by [facility]. 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 September 14, 2023: Baseline PET-CT shows intensely FDG avid left pelvic mass along with FDG avid lymphadenopathy below diaphragm including spleen. September 28, 2023: Start of frontline therapy with R-CHOP. Status: Acute (5) Stomatitis: Problem details: Uses lidocaine. Status: Acute (6) At risk for inadequate pain control: Problem details: In the setting of metastatic cancer Status: Acute (7) Depression: Problem details: severe recurrent depression with psychosis Resume bupropion. Status: Acute (8) Diabetes mellitus type 2, controlled: Problem details: Low-dose insulin sliding scale Status: Acute (9) Cigarette smoker: Problem details: age 12 2ppd Status: Acute (10) COPD (chronic obstructive pulmonary disease): Problem details: Asthma combined with chronic bronchitis Status: Acute (11) Smoking greater than 40 pack years: Status: Acute Subjective Date Seen: 11/21/23 Interval history: Daily Progress Note - Hospital Medicine Day #: 2 CC: Neutropenic fever; bilateral pneumonia 24 HOUR UPDATE: patient feels better than yesterday; she has been afebrile (however given tylenol and ibuprofen). less weak. hungry. no air hunger or tachypnea. Notable Labs, Micro, Rads, Interventions: CBC reflects a neutropenia of 0.7 total white blood cell count and is up to 0.95 total white blood cell count however the fraction of neutrophils by% has gone down from 20% to 12.6% Hemoglobin is down to 10.6 from 11.0 Her electrolytes are normal, her renal function is normal. Her blood sugars 126. Yesterday on admission her lactate was normal, her LFTs were normal CRP went from 13.4 up to 19.3 She has a very reasonable BNP at 282 Her procalcitonin is 0.1 which is up from 0.07 yesterday. Urine studies are essentially negative. She has some trace ketones but otherwise no evidence of infection. Urine culture is pending. Her strep pneumo and Legionella antigens are negative. Negative SARs, FLU, RSV CT chest/abd/pelvis 1. Multifocal infectious airways disease. Single small consolidative opacity in the right upper lobe may be an area of developing bronchopneumonia. No cavitation or parapneumonic effusion. 2. Resolved periaortic and right iliac michael mass. No new or worsening adenopathy or soft tissue masses. No splenomegaly. No visceral lesions seen. BC negative to date (1 bottle) UC negative to date Objective: Alert and orientated. Clear sensorium. Vitals: see above Lungs: Clear - scattered rhonchi. no wheeze. Cardiac: S1S2. No murmur. Disposition/Potential discharge - at least three days for IV abx and surveillance; at least 24 hours no fever. Today I spent 50minutes seeing the patient, reviewing Expanse and EPIC notes/diagnostics, discussing the care plan with our care time that includes so cial work, PT/OT, pharmacy, RT, penitentiary and documenting my impressions and plan in the medical record. Prolonged Physician Services [id number] ([facility]) in conjunction with: 25061 (subsequent visit; 50 mins + 15 mins prolonged services = 65 mins total) I then went back for 15 mins to discuss the findings of ..... Alcohol 04056 >30 mins. We went over all the stigmata of alcoholism I see in this patient. I discussed the effects of chronic alcohol on the brain, liver, and heart. I recommended complete abstinence from alcohol and instructed on programs available at discharge from acute care. Smoking/Tobacco 75918 >10 mins. I went over the clinical stigmata of chronic tobacco use on the body. I explained the effect on the vasculature, lungs, heart, skin. I recommended complete abstinence from tobacco products and instructed on programs available at discharge from acute care. ACP first 30 mins [id number] I went over options for care during this current hospitalization and explained the difference between palliative care and hospice care. I described the likelihood of returning to previous functioning and what the options are going forward for care. #1 DLBCL, advanced stage Returns to clinic prior to cycle 3 of R-CHOP for DLBCL. Tolerated cycle 2 without major issues. Interim PET-CT shows a great response. Will proceed with cycle 3 as scheduled, without dose reductions. DLBCL, advanced stage No growth factor. Patient is a 53 y.o. woman with previous medical history significant for tobacco use, hyperlipidemia, type 2 diabetes, COPD, and major depressive disorder with psychotic features, whose hematological history may be summarized as follows: August 07, 2023: MRI of the pelvis with and without contrast obtained to evaluate persistent/progressive pain of the left hip reportedly showed abnormalities on the left hip. Images not reviewed by [facility]. 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 September 14, 2023: Baseline PET-CT shows intensely FDG avid left pelvic mass along with FDG avid lymphadenopathy below diaphragm including spleen. September 28, 2023: Start of frontline therapy with R-CHOP. Exam Const: Vital Signs, click to edit/add: Vital Signs - 24 hr 11/20/23 18:34 11/20/23 18:45 11/20/23 18:58 Temperature 103.2 F H Pulse Rate 124 H Pulse Rate [Left P ulse Oximeter] 134 H Pulse Rate [Right Pulse Oximeter] Respiratory Rate 20 Blood Pressure Blood Pressure [Ri ght Arm] Blood Pressure [Ri ght Upper Arm] 123/79 Pulse Oximetry 92 90 86 L Oxygen Delivery Me thod Room Air 11/20/23 19:00 11/20/23 19:02 11/20/23 19:24 Temperature 103.2 F H 103.2 F H Pulse Rate 134 H Pulse Rate [Left P ulse Oximeter] Pulse Rate [Right Pulse Oximeter] Respiratory Rate Blood Pressure Blood Pressure [Ri ght Arm] Blood Pressure [Ri ght Upper Arm] Pulse Oximetry 91 Oxygen Delivery Me thod 11/20/23 19:24 11/20/23 19:25 11/20/23 19:30 Temperature Pulse Rate 122 H 118 H 114 H Pulse Rate [Left P ulse Oximeter] Pulse Rate [Right Pulse Oximeter] Respiratory Rate Blood Pressure 132/67 Blood Pressure [Ri ght Arm] Blood Pressure [Ri ght Upper Arm] Pulse Oximetry 92 93 90 Oxygen Delivery Me thod 11/20/23 19:32 11/20/23 19:45 11/20/23 19:47 Temperature Pulse Rate 114 H 113 H 113 H Pulse Rate [Left P ulse Oximeter] Pulse Rate [Right Pulse Oximeter] Respiratory Rate Blood Pressure 102/55 L 107/47 L Blood Pressure [Ri ght Arm] Blood Pressure [Ri ght Upper Arm] Pulse Oximetry 90 89 89 Oxygen Delivery Me thod 11/20/23 19:51 11/20/23 20:00 11/20/23 20:02 Temperature 100.0 F H Pulse Rate 118 H 124 H Pulse Rate [Left P ulse Oximeter] Pulse Rate [Right Pulse Oximeter] Respiratory Rate Blood Pressure 122/70 Blood Pressure [Ri ght Arm] Blood Pressure [Ri ght Upper Arm] Pulse Oximetry 95 95 Oxygen Delivery Me thod 11/20/23 20:15 11/20/23 20:17 11/20/23 20:30 Temperature Pulse Rate 111 H 110 H 110 H Pulse Rate [Left P ulse Oximeter] Pulse Rate [Right Pulse Oximeter] Respiratory Rate Blood Pressure 113/59 L Blood Pressure [Ri ght Arm] Blood Pressure [Ri ght Upper Arm] Pulse Oximetry 91 91 93 Oxygen Delivery Me thod 11/20/23 20:31 11/20/23 20:45 11/20/23 20:47 Temperature Pulse Rate 108 H 108 H 113 H Pulse Rate [Left P ulse Oximeter] Pulse Rate [Right Pulse Oximeter] Respiratory Rate Blood Pressure 92/37 L 121/69 Blood Pressure [Ri ght Arm] Blood Pressure [Ri ght Upper Arm] Pulse Oximetry 92 92 96 Oxygen Delivery Me thod 11/20/23 21:00 11/20/23 21:00 11/20/23 21:44 Temperature 99.2 F 99.2 F Pulse Rate Pulse Rate [Left P ulse Oximeter] Pulse Rate [Right Pulse Oximeter] 100 Respiratory Rate 20 20 Blood Pressure Blood Pressure [Ri ght Arm] 112/69 Blood Pressure [Ri ght Upper Arm] Pulse Oximetry 94 94 Oxygen Delivery Me thod Room Air Room Air 11/20/23 23:00 11/20/23 23:00 11/20/23 23:00 Temperature 99.2 F Pulse Rate 91 Pulse Rate [Left P ulse Oximeter] Pulse Rate [Right Pulse Oximeter] 104 H 104 H Respiratory Rate 20 16 Blood Pressure Blood Pressure [Ri ght Arm] 87/56 L Blood Pressure [Ri ght Upper Arm] Pulse Oximetry 90 Oxygen Delivery Me thod Room Air 11/21/23 02:49 Temperature 98.4 F Pulse Rate Pulse Rate [Left P ulse Oximeter] Pulse Rate [Right Pulse Oximeter] 97 Respiratory Rate 20 Blood Pressure Blood Pressure [Ri ght Arm] 104/67 Blood Pressure [Ri ght Upper Arm] Pulse Oximetry 92 Oxygen Delivery Me thod Room Air Labs Labs: Laboratory Results - last 24 hr 11/20/23 11/21/23 11/21/23 19:10 06:09 06:55 WBC 0.70 L* 0.95 L* RBC 3.41 L 3.26 L Hgb 11.0 L 10.6 L Hct 33.0 32.1 L MCV 97 99 MCH 32 33 MCHC 33 33 RDW Coeff of Randall 14.5 14.8 Plt Count 124 L 112 L Neut % (Auto) 20.0 L 12.6 L Lymph % (Auto) 50.0 H 51.6 H [place] % (Auto) 25.7 H 30.5 H Eos % (Auto) 1.4 2.1 Baso % (Auto) 2.9 2.1 Neut # (Auto) 0.10 L 0.10 L Lymph # (Auto) 0.40 L 0.50 L [place] # (Auto) 0.20 0.30 Eos # (Auto) 0.00 0.00 Baso # (Auto) 0.00 0.00 Abs Immat Gran (auto) 0.00 0.00 Imm/Tot Granulo (auto) 0.0 1.1 Diff Slide Review Acceptable Review Sodium 136 141 Potassium 3.6 4.2 Chloride 104 108 Carbon Dioxide 28 30 Anion Gap 4 L 3 L BUN 11 10 Creatinine 0.6 0.6 Estimated Creat Clear 92.56 92.56 Estimated GFR 107 107 Glucose 165 H 126 H Lactate 1.6 Calcium 8.9 8.8 Magnesium 2.0 Total Bilirubin 0.3 0.3 Direct Bilirubin 0.1 AST 16 17 ALT 17 15 Alkaline Phosphatase 82 72 C-Reactive Protein 13.4 H 19.3 H NT-Pro-B Natriuret Pep 282 Total Protein 6.4 5.8 L Albumin 3.9 3.3 Procalcitonin 0.07 0.10 Urine Color Yellow Urine Appearance Turbid A Urine pH 7.5 Ur Specific [place] 1.020 Urine Protein Negative Urine Glucose (UA) Negative Urine Ketones Trace A Urine Blood Negative Urine Nitrite Negative Urine Bilirubin Negative Urine Urobilinogen 0.2 Ur Leukocyte Esterase Negative Urine RBC 0-2 Urine WBC 0-2 Ur Squamous Epith Cells Few Urine Bacteria None SARS-CoV-2 (PCR) Negative SARS-CoV-2 Influenza Type A (PCR) Negative PCR FLU A Influenza Type B (PCR) Negative PCR FLU B RSV (PCR) Negative PCR RSV Lab Acknowledgement Test Added
[2023-11-21] MEDS: GABAPENTIN 600 MG TABLET PO ×3 (08:47→21:12)
[2023-11-21] MEDS: IPRAT-ALBUT 0.5-2.5 MG/3 ML NEB 1 NEB IH ×2 (08:47→19:42)
[2023-11-21] MEDS: buPROPion HCL 100 MG TAB.SR.12H PO (08:47)
[2023-11-21 10:47] LABS: Legionella pneumo Ag Urine L. pneumo Negative (Negative); S pneumo Ag Urine S. pneumo Negative (Negative)
[2023-11-21 11:00] VITALS: PULSE 88; RESP 20; O2SAT 96
[2023-11-21] MEDS: NICOTINE 21 MG PATCH 1 PATCH TRANSDERMA (13:50)
[2023-11-21] MEDS: AZITHROMYCIN 250 MG TABLET 500 MG PO (13:52)
[2023-11-21] MEDS: LIDOCAINE 5% PATCH 2 PATCH TRANSDERMA (13:55)
[2023-11-21 14:42] VITALS: BMI 29.6
[2023-11-21 15:00] VITALS: RESP 20
[2023-11-21] MEDS: DIPHEN/LIDO/ALUM/MAG/SIMETH 5 ML SUSPENSION MUCOUS MEM (15:26)
[2023-11-21] MEDS: ACETAMINOPHEN 325 MG TABLET 975 MG PO (16:30)
[2023-11-21 19:00] VITALS: BP 99/60; PULSE 86; RESP 18; TEMP 37; O2SAT 90
[2023-11-21] MEDS: TRAMADOL HCL 50 MG TABLET 100 MG PO (19:44)
[2023-11-21] MEDS: METFORMIN 500 MG TABLET 1000 MG PO (19:47)
[2023-11-21] MEDS: BENZONATATE 100 MG CAPSULE 200 MG PO (21:12)
[2023-11-21] MEDS: ENOXAPARIN 40 MG/0.4 ML INJ SUBCUT (21:13)
[2023-11-21 23:00] VITALS: BP 98/72; PULSE 103; RESP 16; TEMP 36.9; O2SAT 99
[2023-11-21] MEDS: ONDANSETRON 2 MG/ML inj 4 MG IVP (23:17)
[2023-11-22] VITALS (8 sets, daily range): BP systolic 96–118; BP diastolic 62–72; PULSE 65–96; RESP 15–18; TEMP 36.5–36.9; O2SAT 93–97
[2023-11-22] MEDS: PIPERACILLIN/TAZOBACTAM 4.5 GM in 0.9 % SODIUM CHLORIDE Mini-bag 100 ML IVPB ×4 (01:56→20:15)
[2023-11-22] MEDS: TRAMADOL HCL 50 MG TABLET 100 MG PO (01:56)
[2023-11-22] MEDS: CYCLOBENZAPRINE HCL 10 MG TABLET PO (03:57)
[2023-11-22] MEDS: BENZONATATE 100 MG CAPSULE 200 MG PO ×3 (04:00→20:37)
[2023-11-22 06:16] LABS: HCO3 VBG 30 mmol/L (21-28); PCO2 VBG 57 mmHG (40-50); PO2 VBG < 30.1 mmHG (25-47); pH VBG 7.335 (7.32-7.43)
--- NOTE | 2023-11-22 06:19 | PC.NURSE ---
End of shift report [id number]: Cooperative with cares, alert and oriented x 4. Pain to low back which radiates into legs managed with current regimen. Increased cough this shift, new order for tracie tuttle, patient reports effective results with medication for cough. Declined duoneb, patient did not receive relief of cough or SOB with use. Afebrile throughout this shift. At 2300 patient reported 4 large emesis of undigested food and fluid, PRN ondansetron administered and effective for nausea. Abdominal discomfort reported with emesis. Independent with ambulation in room.
[2023-11-22 06:21] LABS: Basophils Percent Auto 1.9 % (0.0-3.0); Eosinophils Percent Auto 1.9 % (0.0-7.0); Hematocrit 31.1 % (33.0-51.0); Hemoglobin* 10.1 gm/dL (12.0-16.0); Immature Granulocytes Pct Auto 0.9 %; Lymphocytes Percent Auto 51.9 % (20-44); Mean Corpuscular HGB Conc 33 gm/dL (32-36); Mean Corpuscular Hemoglobin 32 pg (26-34); Mean Corpuscular Volume 100 fL (80-100); Monocytes Percent Auto 27.8 % (0.0-11.0); Neutrophils Percent Auto 15.6 % (42.0-72.0); Platelet Count* 147 K/uL (140-440); RDW Coefficient of Variation % 14.7 % (11.5-15.5); Red Blood Count 3.12 m/uL (4.00-5.20)
[2023-11-22 06:23] LABS: White Blood Count* 1.08 K/uL (4.50-11.00)
[2023-11-22 06:24] LABS: Slide Review Reflex No
[2023-11-22 06:33] LABS: Chloride* 106 mmol/L (96-114)
[2023-11-22 06:34] LABS: Albumin* 3.2 g/dL (3.3-5.0); Sodium* 140 mmol/L (135-149)
[2023-11-22 06:36] LABS: Creatinine* 0.6 mg/dL (0.5-1.5); Est. Creatinine Clearance* 92.56; Estimated Glomerular Filt Rate 107 ml/min
[2023-11-22 06:37] LABS: Alanine Aminotransferase* 14 U/L (4-35); Alkaline Phosphatase* 62 U/L (40-150); Anion Gap 3 mEq/L (7-15); Aspartate Amino Transferase* 15 U/L (12-35); Bilirubin Total* 0.1 mg/dL (0.1-1.5); Blood Urea Nitrogen* 11 mg/dL (7-30); Carbon Dioxide* 31 mmol/L (20-32); Glucose* 94 mg/dL (60-115)
[2023-11-22 06:38] LABS: Calcium* 8.6 mg/dL (8.4-10.6)
[2023-11-22 06:54] LABS: Procalcitonin* 0.06 ng/mL (<0.50)
[2023-11-22 06:55] LABS: C Reactive Protein* 20.8 mg/dL (0.5-1.0)
--- NOTE | 2023-11-22 08:05 | CRLHL7_ITS ---
For Patients: As a result of the Cures Act, medical imaging exams and procedure reports are released immediately into your electronic medical record. You may view this report before your referring provider. If you have questions, please contact your health care provider. Indication: Neutropenia, pneumonia Comparison: CT chest November 20, 2023 Technique: PA and lateral views of the chest Findings: Again seen is moderate central bronchial thickening with airspace opacity in the upper greater than lower lobes likely representing slightly increasing infiltrates from previous. The cardiomediastinal silhouette is within normal limits. The bony thorax is grossly intact. Impression: Moderate central bronchial thickening with airspace in the upper greater than lower lobes likely representing slightly increasing infiltrates from previous exam. Dictated by Franko Deras MD @ 11/22/2023 8:45:39 AM (Electronically Signed)
[2023-11-22] MEDS: METFORMIN 500 MG TABLET 1000 MG PO ×2 (08:17→17:36)
[2023-11-22] MEDS: ACETAMINOPHEN 325 MG TABLET 975 MG PO ×2 (08:17→16:01)
--- NOTE | 2023-11-22 09:36 | PM.IMPN1 ---
Progress Note: A&P Assessment and plan (1) Multifocal pneumonia: Problem details: -azithromycin oral (500mg x 3 doses) -IV zosyn 4.5mg dose q 6 -Not on steroids -resp hygiene and support (duo nebs; IS, aerobika) -sputum culture ordered -legionella and strep pneumo neg -PCR multiplex for viral etiologies ordered for today to [facility] -blood culture NGTD -urine culture NGTD Status: Acute (2) Abnormal echocardiogram: Problem details: -calcification on posterior leaflet of mitral valve -follow blood culture; discuss with cardiology TBD (awaiting final report from cards) - 1. Technically limited exam. 2. Normal LV size, normal wall thickness, normal global systolic function with an estimated EF of 55 - 60%. 3. Right ventricular cavity size is normal, global systolic RV function is normal. 4. Posterior leaflet of the mitral valve is calcified. Mild mitral insufficiency. Consider MARLEE if there's concern for endocarditis. 5. Strain value not reported due to suboptimal endocardial definition. Status: Acute (3) Neutropenic fever: Problem details: -last R-CHOP was 11/09/23. no growth factor -DLBCL, advanced stage IPI24: 33% event risk in 24mo TALENT ACQUISITION SPECIALIST-IPI: 3 (intermediate risk) R-IPI: 2 (good prognosis) M-spike: absent Peripheral blood flow: No clonal B-cell population Status: Acute (4) Diffuse large B cell lymphoma: Problem details: stage IV metastatic her last session of chemotherapy back in November 08. #1 DLBCL, advanced stage Returns to clinic prior to cycle 3 of R-CHOP for DLBCL. Tolerated cycle 2 without major issues. Interim PET-CT shows a great response. Will proceed with cycle 3 as scheduled, without dose reductions. DLBCL, advanced stage R-CHOP Cycle 3, 11/09/23. No growth factor. Patient is a 53 y.o. woman with previous medical history significant for tobacco use, hyperlipidemia, type 2 diabetes, COPD, and major depressive disorder with psychotic features, whose hematological history may be summarized as follows: August 07, 2023: MRI of the pelvis with and without contrast obtained to evaluate persistent/progressive pain of the left hip reportedly showed abnormalities on the left hip. Images not reviewed by [facility]. 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 September 14, 2023: Baseline PET-CT shows intensely FDG avid left pelvic mass along with FDG avid lymphadenopathy below diaphragm including spleen. September 28, 2023: Start of frontline therapy with R-CHOP. Status: Acute (5) Stomatitis: Problem details: Uses magic mouth wash Status: Acute (6) At risk for inadequate pain control: Problem details: In the setting of metastatic cancer -11/20 started MS Contin 15mg BID with scheduled ibuprofen, gabapentin, lidoderm patches. PRN tylenol, cyclobenzaprine and oxycodone (IR) Status: Acute (7) Depression: Problem details: severe recurrent depression with psychosis Resume bupropion. Status: Acute (8) Diabetes mellitus type 2, controlled: Problem details: Low-dose insulin sliding scale Status: Acute (9) Cigarette smoker: Problem details: age 12 2ppd as nicotine patch on Status: Acute (10) COPD (chronic obstructive pulmonary disease): Problem details: Asthma combined with chronic bronchitis Status: Acute (11) Smoking greater than 40 pack years: Status: Acute Subjective Date Seen: 11/22/23 Interval history: Daily Progress Note - Hospital Medicine Day #: 3 CC: Neutropenic fever; bilateral pneumonia 24 HOUR UPDATE: patient continues to improve. Afebrile in the last 24 hours (however on ibu and tylenol). Vomited last night about 11 pm. no diarrhea. hungry. eating. no air hunger. cough is productive. Notable Labs, Micro, Rads, Interventions: CBC reflects a neutropenia. trending upward, today ANC is 168 up from a low of 120 yesterday. Hemoglobin is downtrending. 11.0, today 10.1 Her electrolytes are normal, her renal function is normal. Her blood sugars 126. Yesterday on admission her lactate was normal, her LFTs were normal CRP went from 13.4 up to 19.3, 20.8, so rate of rise is much less. She has a very reasonable BNP at 282 Her procalcitonin has peaked and is downtrending Urine studies are essentially negative. She has some trace ketones but otherwise no evidence of infection. Urine culture is NGTD. Her strep pneumo and Legionella antigens are negative. Negative SARs, FLU, RSV Updated CXR this morning: Moderate central bronchial thickening with airspace in the upper greater than lower lobes likely representing slightly increasing infiltrates from previous exam. BC negative to date (1 bottle) UC negative to date Objective: Alert and orientated. Clear sensorium. Vitals: see above Lungs: Clear - scattered rhonchi. no wheeze. Cardiac: S1S2. No murmur. Disposition/Potential discharge - at least three days for IV abx and surveillance; at least 24 hours no fever. Today I spent 50minutes seeing the patient, reviewing Expanse and [facility] notes/diagnostics, discussing the care plan with our care time that includes social work, PT/OT, pharmacy, RT, half-way and documenting my impressions and plan in the medical record. Exam Const: Vital Signs, click to edit/add: Vital Signs - 24 hr 11/21/23 11:00 11/21/23 15:00 11/21/23 19:00 Temperature 98.6 F Pulse Rate [Right Pulse Oximeter] 88 86 Respiratory Rate 20 20 18 Blood Pressure [Ri ght Arm] 99/60 Pulse Oximetry 96 90 Oxygen Delivery Me thod Room Air Room Air 11/21/23 23:00 11/21/23 23:00 11/22/23 03:00 Temperature 98.5 F Pulse Rate [Right Pulse Oximeter] 103 H 103 H 82 Respiratory Rate 16 16 18 Blood Pressure [Ri ght Arm] 98/72 Pulse Oximetry 99 94 Oxygen Delivery Me thod Room Air Room Air 11/22/23 07:58 11/22/23 07:58 Temperature 97.8 F Pulse Rate [Right Pulse Oximeter] 94 94 Respiratory Rate 18 18 Blood Pressure [Ri ght Arm] 97/65 Pulse Oximetry 93 Oxygen Delivery Me thod Room Air Labs Labs: Laboratory Results - last 24 hr 11/20/23 11/21/23 11/22/23 19:10 10:00 05:57 WBC 1.08 L* RBC 3.12 L Hgb 10.1 L Hct 31.1 L MCV 100 MCH 32 MCHC 33 RDW Coeff of Randall 14.7 Plt Count 147 Neut % (Auto) 15.6 L Lymph % (Auto) 51.9 H [place] % (Auto) 27.8 H Eos % (Auto) 1.9 Baso % (Auto) 1.9 Neut # (Auto) 0.20 L Lymph # (Auto) 0.60 L [place] # (Auto) 0.30 Eos # (Auto) 0.00 Baso # (Auto) 0.00 Abs Immat Gran (auto) 0.00 Imm/Tot Granulo (auto) 0.9 VBG pH 7.335 VBG pCO2 57 H VBG pO2 < 30.1 VBG HCO3 30 H Sodium 140 Potassium 4.0 Chloride 106 Carbon Dioxide 31 Anion Gap 3 L BUN 11 Creatinine 0.6 Estimated Creat Clear 92.56 Estimated GFR 107 Glucose 94 Calcium 8.6 Total Bilirubin 0.1 AST 15 ALT 14 Alkaline Phosphatase 62 C-Reactive Protein 20.8 H Total Protein 6.0 Albumin 3.2 L Procalcitonin 0.06 Urine L. pneumophilia Ag L. pneumo Negative Urine Strep pneumoniae Ag S. pneumo Negative Lab Acknowledgement Test Added
[2023-11-22] MEDS: ATORVASTATIN CALCIUM 40 MG TABLET 80 MG PO (09:37)
[2023-11-22] MEDS: NYSTATIN 500,000 UNIT/5 ML 500000 UNIT PO ×4 (09:37→20:37)
[2023-11-22] MEDS: IBUPROFEN 400 MG TABLET 800 MG PO ×3 (09:37→20:39)
[2023-11-22] MEDS: GABAPENTIN 600 MG TABLET PO ×3 (09:37→20:39)
[2023-11-22] MEDS: BUDESONIDE FORMOTEROL 2 EACH IH ×2 (09:38→20:40)
[2023-11-22] MEDS: buPROPion HCL 100 MG TAB.SR.12H PO (09:38)
[2023-11-22] MEDS: OXYCODONE 5 MG TABLET PO ×2 (09:38→18:36)
[2023-11-22] MEDS: SODIUM CHLORIDE 0.9 % (FLUSH) 10 ML SYRINGE 5 ML IVF ×2 (09:39→20:40)
[2023-11-22] MEDS: NICOTINE 21 MG PATCH 1 PATCH TRANSDERMA (10:55)
[2023-11-22] MEDS: AZITHROMYCIN 250 MG TABLET 500 MG PO (10:56)
[2023-11-22] MEDS: CALCIUM CARBONATE 500 MG CHEW PO ×2 (13:30→16:00)
[2023-11-22] MEDS: OMEPRAZOLE 20 MG CAPSULE DR PO (13:30)
--- NOTE | 2023-11-22 14:51 | PC.NURSE ---
Nursing Care Hours: [id number] Pt this shift calm and cooperative, alert and oriented. Pain controlled per scheduled and PRN meds per eMAR. Pt declined the lidocaine patches stating they do not work. Declined the duonebs as well. Rare dry cough noted. LS clear but diminished lower lobes. Spo2 stable on RA. BP running softer mid 90's systolic, pt asymptomatic. Independent in room. Pt educated on neutropenic precautions such as avoiding raw fruits and vegetables. Pt was unaware of this. Print outs given and went over with pt regarding hand washing, mask wearing, avoiding crowds, and food safety. Pt curious if illness caused by her eating a handful of unwashed grapes a few days prior or being around grade school daughter. Maintenance Specialist confirmed that these could be possible causes but we can not confirm if it is the cause. Nasal swab collected per order. Nicotine patch applied to R shoulder.
[2023-11-22] MEDS: ENOXAPARIN 40 MG/0.4 ML INJ SUBCUT (20:39)
[2023-11-23] MEDS: ACETAMINOPHEN 325 MG TABLET 975 MG PO ×3 (00:34→16:50)
[2023-11-23] MEDS: OXYCODONE 5 MG TABLET PO ×3 (00:35→16:55)
[2023-11-23] MEDS: PIPERACILLIN/TAZOBACTAM 4.5 GM in 0.9 % SODIUM CHLORIDE Mini-bag 100 ML IVPB ×3 (02:38→14:33)
[2023-11-23 02:42] VITALS: BP 110/74; PULSE 95; RESP 14; TEMP 36.6; O2SAT 93
--- NOTE | 2023-11-23 06:12 | PC.NURSE ---
End of shift [id number]: Pt AxOx4, cooperative, and pleasant. Pt rated pain 6/10. Life Skills Coordinator utilized scheduled and PRN pain medication as well as repositioning.?Dry cough noted. Spo2 stable on RA. BP running softer low 100s systolic, pt asymptomatic. Independent in room. Pt denies N/V/dizziness/CP/SOB. Nicotine patch in place?to the R shoulder. Pt refused medications during the night and stated, ?Why would I need to be awaked every 2 hours for a different medication when all of these meds I take are as needed at home.? Pt also requested to take omeprazole with morning medications because she ?Doesnt eat breakfast or lunch so my stomach will still be empty.? Pt appears resting comfortably with call light in reach.
[2023-11-23 06:30] LABS: Basophils Percent Auto 1.9 % (0.0-3.0); Eosinophils Percent Auto 1.3 % (0.0-7.0); Hematocrit 30.8 % (33.0-51.0); Immature Granulocytes Pct Auto 5.7 %; Lymphocytes Percent Auto 39.2 % (20-44); Mean Corpuscular HGB Conc 33 gm/dL (32-36); Mean Corpuscular Hemoglobin 32 pg (26-34); Mean Corpuscular Volume 98 fL (80-100); Monocytes Percent Auto 27.8 % (0.0-11.0); Neutrophils Percent Auto 24.1 % (42.0-72.0); Platelet Count* 192 K/uL (140-440); RDW Coefficient of Variation % 14.8 % (11.5-15.5); Red Blood Count 3.15 m/uL (4.00-5.20)
[2023-11-23 06:32] LABS: Slide Review Reflex Yes; White Blood Count* 1.58 K/uL (4.50-11.00)
[2023-11-23 06:47] LABS: Chloride* 104 mmol/L (96-114); Potassium* 3.9 mmol/L (3.6-5.1); Sodium* 139 mmol/L (135-149)
[2023-11-23 06:50] LABS: Creatinine* 0.7 mg/dL (0.5-1.5); Est. Creatinine Clearance* 79.34; Estimated Glomerular Filt Rate 103 ml/min
[2023-11-23 06:51] LABS: Anion Gap 7 mEq/L (7-15); Blood Urea Nitrogen* 8 mg/dL (7-30); Calcium* 8.9 mg/dL (8.4-10.6); Carbon Dioxide* 28 mmol/L (20-32); Glucose* 86 mg/dL (60-115)
[2023-11-23 07:05] LABS: C Reactive Protein* 11.5 mg/dL (0.5-1.0)
[2023-11-23 07:24] LABS: Slide Review Acceptable Review (Acceptable)
[2023-11-23 09:15] VITALS: BP 130/79; PULSE 97; RESP 16; TEMP 36.8; O2SAT 95
[2023-11-23] MEDS: OMEPRAZOLE 20 MG CAPSULE DR PO (09:19)
[2023-11-23] MEDS: METFORMIN 500 MG TABLET 1000 MG PO (09:19)
[2023-11-23] MEDS: buPROPion HCL 100 MG TAB.SR.12H PO (09:24)
[2023-11-23] MEDS: GABAPENTIN 600 MG TABLET PO ×2 (09:24→14:33)
[2023-11-23] MEDS: NYSTATIN 500,000 UNIT/5 ML 500000 UNIT PO ×3 (09:25→16:52)
[2023-11-23] MEDS: BUDESONIDE FORMOTEROL 2 EACH IH (09:25)
[2023-11-23] MEDS: IBUPROFEN 400 MG TABLET 800 MG PO ×2 (09:25→14:32)
[2023-11-23] MEDS: ATORVASTATIN CALCIUM 40 MG TABLET 80 MG PO (09:25)
[2023-11-23] MEDS: SODIUM CHLORIDE 0.9 % (FLUSH) 10 ML SYRINGE 5 ML IVF ×2 (09:26→14:35)
[2023-11-23] MEDS: NICOTINE 21 MG PATCH 1 PATCH TRANSDERMA (09:35)
[2023-11-23 11:29] VITALS: BP 128/80; PULSE 88; RESP 12; TEMP 36.6; O2SAT 97
[2023-11-23] MEDS: AZITHROMYCIN 250 MG TABLET 500 MG PO (11:32)
[2023-11-23] MEDS: BENZONATATE 100 MG CAPSULE 200 MG PO (12:36)
--- NOTE | 2023-11-23 14:49 | PC.NURSE ---
End of Shift: Patient pleasant and cooperative. Patient vitally stable, lungs clear, BS WNL, IV SL and intact. Patient independent in room and denies pain. Patient tolerating regular diet and urinating well, no BM. Patient drinks a lot of fluids. Nicotine patch on right hip.
[2023-11-23 15:00] VITALS: RESP 12
[2023-11-23] MEDS: IPRAT-ALBUT 0.5-2.5 MG/3 ML NEB 1 NEB IH (15:17)
--- NOTE | 2023-11-23 15:22 | PM.DS1 ---
DS: Providers Provider Date Seen: 11/23/23 Date of admission: 11/20/23 21:35 Primary care physician: Porfirio Orosco PA-C Admitting Clinician: Shanna Molina MD Attending Physician on discharge: Maricarmen Brown MD [facility] Hospitalist Date of Discharge: 11/23/23 DS: Diagnosis Discharge Diagnosis (1) Neutropenic fever: Status: Acute Problem details: -last R-CHOP was 11/09/23. no growth factor -DLBCL, advanced stage IPI24: 33% event risk in 24mo LOSS PREVENTION MANAGER-IPI: 3 (intermediate risk) R-IPI: 2 (good prognosis) M-spike: absent Peripheral blood flow: No clonal B-cell population (2) Multifocal pneumonia: Status: Acute Problem details: -azithromycin oral (500mg x 3 doses) -IV zosyn 4.5mg dose q 6 -Not on steroids -resp hygiene and support (duo nebs; IS, aerobika) -sputum culture ordered -legionella and strep pneumo neg -PCR multiplex for viral etiologies ordered and resulted by [facility] - NEG -blood culture NGTD -urine culture NGTD (3) Diffuse large B cell lymphoma: Status: Acute Problem details: stage IV metastatic her last session of chemotherapy back in November 08. #1 DLBCL, advanced stage Returns to clinic prior to cycle 3 of R-CHOP for DLBCL. Tolerated cycle 2 without major issues. Interim PET-CT shows a great response. Will proceed with cycle 3 as scheduled, without dose reductions. DLBCL, advanced stage R-CHOP Cycle 3, 11/09/23. No growth factor. Patient is a 53 y.o. woman with previous medical history significant for tobacco use, hyperlipidemia, type 2 diabetes, COPD, and major depressive disorder with psychotic features, whose hematological history may be summarized as follows: August 07, 2023: MRI of the pelvis with and without contrast obtained to evaluate persistent/progressive pain of the left hip reportedly showed abnormalities on the left hip. Images not reviewed by [facility]. 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 September 14, 2023: Baseline PET-CT shows intensely FDG avid left pelvic mass along with FDG avid lymphadenopathy below diaphragm including spleen. September 28, 2023: Start of frontline therapy with R-CHOP. (4) Stomatitis: Status: Acute Problem details: Uses magic mouth wash (5) Cancer associated pain: Status: Acute Problem details: Morphine ER 15mg BID (+gwendolyn ibuprofen and gabapentin) breakthrough coverage with Tylenol, flexeril, oxy pt did not think tramadol, Lidoderm helped (6) At risk for inadequate pain control: Status: Acute Problem details: In the setting of metastatic cancer -11/20 started MS Contin 15mg BID with scheduled ibuprofen, gabapentin, lidoderm patches. PRN tylenol, cyclobenzaprine and oxycodone (IR) (7) Depression: Status: Acute Problem details: severe recurrent depression with psychosis Resume bupropion. (8) Diabetes mellitus type 2, controlled: Status: Acute Problem details: Low-dose insulin sliding scale (9) Cigarette smoker: Status: Acute Problem details: age 12 2ppd as nicotine patch on (10) COPD (chronic obstructive pulmonary disease): Status: Acute Problem details: Asthma combined with chronic bronchitis (11) Smoking greater than 40 pack years: Status: Acute DS: Summary Hospital Course Hospital Course: FINAL DIAGNOSIS/FOLLOW UP ISSUES: Neutropenic fever-likely related to multifocal pneumonia. Viral PCR negative. Likely bacterial. Treated with azithromycin and IV piperacillin/tazobactam. Transition to oral Vantin at discharge. She was kept 72 hours, awaiting negative blood culture. She had no fever in greater than 24 hours. She improved clinically. Large B-cell advanced lymphoma-she will continue to follow with Oncology Chronic pain-we started her on morphine extended release 15 mg p.o. b.i.d. with scheduled ibuprofen and gabapentin. This was supplemented with p.r.n. Tylenol, Flexeril and oxycodone. BRIEF HOSPITAL COURSE: Patient was admitted for 3 days. Synopsis of acute inpatient issues are outlined above. Chronic medical conditions with notable findings outlined above. Essentially she defervesced within the 1st few hours of admission and improved rapidly. She was afebrile the rest of her stay. Her blood culture, urine culture were negative. Two separate viral PCRs were negative for any viral illnesses. We mostly addressed her pain and kept her on IV antibiotics until we were at the 72 hour point of negativity. She was anxious for discharge and will have close follow-up with her PCP. DISCHARGE MEDICATIONS: See Reconciled list - SIGNIFICANT CHANGES: Morphine extended release 15 mg b.i.d. Vantin 200 mg b.i.d. for 1 week Specific instructions to the patient and follow-up are outlined below. REVIEW OF SYSTEMS No new chest pain or dyspnea Pain controlled No voiding difficulties Tolerating diet challenge PHYSICAL EXAM: CONSTITUTIONAL: Color, activity, mood much improved. VITAL SIGNS: see record. HEENT: Normocephalic, atraumatic. PERRL, EOMI, conjunctivae pink, no scleral icterus. Ears and nose externally normal. Pharynx normal. NECK: No JVD. No carotid bruit, no thyromegaly, no adenopathy. CHEST: Clear to auscultation bilaterally. HEART: S1 and S2 normal. Edema ABDOMEN: Soft, nontender. Normal bowel sounds. MUSCULOSKELETAL: No gross joint deformity or swelling. NEURO: Cranial nerves intact. Grossly intact. No asymmetric findings. SKIN: No rashes, petechiae, concerning changes PSYCHIATRIC: Mood euthymic. DISPOSITION: Home with Time spent on discharge 37 minutes. Status at Discharge Functional status at discharge: independent ambulation Overall status at discharge: patient is progressing back to baseline Time Spent with Patient Time attestation: Total time spent providing and/or coordinating discharge services: Time spent: Greater than 30 minutes Exam Const: Vital Signs, click to edit/add: Vital Signs - 24 hr 11/22/23 19:23 11/22/23 20:39 11/22/23 21:19 Temperature 98.4 F 98.4 F 98.4 F Pulse Rate [Right Pulse Oximeter] 68 Respiratory Rate 16 Blood Pressure [Le ft Arm] 118/72 Blood Pressure [Ri ght Arm] Pulse Oximetry 96 Oxygen Delivery Me thod Room Air 11/22/23 23:00 11/23/23 02:42 11/23/23 09:15 Temperature 97.7 F 97.9 F Pulse Rate [Right Pulse Oximeter] 65 95 97 Respiratory Rate 16 14 16 Blood Pressure [Le ft Arm] Blood Pressure [Ri ght Arm] 101/69 110/74 Pulse Oximetry 97 93 Oxygen Delivery Me thod Room Air Room Air 11/23/23 09:15 11/23/23 11:29 Temperature 98.3 F 98 F Pulse Rate [Right Pulse Oximeter] 97 88 Respiratory Rate 16 12 Blood Pressure [Le ft Arm] Blood Pressure [Ri ght Arm] 130/79 128/80 Pulse Oximetry 95 97 Oxygen Delivery Me thod Room Air Room Air DS: Data Data Completed and Pending Labs on day of discharge: Labs from last 24 hours 11/23/23 06:02 WBC 1.58 L* RBC 3.15 L Hgb 10.0 L Hct 30.8 L MCV 98 MCH 32 MCHC 33 RDW Coeff of Rnadall 14.8 Plt Count 192 Neut % (Auto) 24.1 L Lymph % (Auto) 39.2 Centre % (Auto) 27.8 H Eos % (Auto) 1.3 Baso % (Auto) 1.9 Neut # (Auto) 0.40 L Lymph # (Auto) 0.60 L Centre # (Auto) 0.40 Eos # (Auto) 0.00 Baso # (Auto) 0.00 Abs Immat Gran (auto) 0.10 Imm/Tot Granulo (auto) 5.7 Diff Slide Review Acceptable Review Sodium 139 Potassium 3.9 Chloride 104 Carbon Dioxide 28 Anion Gap 7 BUN 8 Creatinine 0.7 Estimated Creat Clear 79.34 Estimated GFR 103 Glucose 86 Calcium 8.9 C-Reactive Protein 11.5 H Preliminary micro results at discharge 11/20/23 20:15 Blood Culture - Preliminary Blood NO GROWTH AFTER 48 HOURS Discharge Plan Discharge Disposition: Home w/ Parent or Adult Date of Admission: 11/20/23 21:35 Attending Provider on Discharge: Maricarmen Brown Primary Care Provider: Porfirio Orosco Condition: Stable Anticipated Discharge Date/Time: 11/23/23 18:00 Discharge Medications: New morphine 15 mg Tablet Extended Release 15 mg PO BID Qty: 30 0RF cefpodoxime 200 mg tablet 200 mg PO BID Qty: 14 0RF Rx Instructions: must administer with a meal/food azithromycin 500 mg tablet 500 mg PO DAILY Qty: 1 0RF Rx Instructions: just one dose on the morning of 11/23 acetaminophen [Acetaminophen Extra Strength] 500 mg tablet 500 mg PO Q6H PRNQty: 60 0RF Continued metformin 500 mg tablet 1,000 mg PO BID Qty: 360 3RF gabapentin 600 mg tablet 600 mg PO TID Qty: 270 3RF albuterol sulfate [Ventolin HFA] 90 mcg/actuation HFA aerosol inhaler 2 puff inhalation Q4H PRN (Reason: shortness of breath or wheezing) Qty: 8.5 11RF ipratropium-albuterol 0.5 mg-3 mg(2.5 mg base)/3 mL solution for nebulization 3 ml inhalation TID Qty: 90 11RF Mounjaro 15 mg/0.5 mL pen injector 15 mg subcut QWEEK Qty: 2 0RF nicotine 21 mg/24 hr patch 24 hour 1 patch transdermal Q24H Qty: 28 1RF lidocaine HCl [Lidocaine Viscous] 2 % solution 1 applic mucous membrane BID PRN (Reason: pain) Qty: 100 1RF atorvastatin 80 mg tablet 80 mg PO DAILY sumatriptan succinate 100 mg tablet 100 mg PO Q2H PRN (Reason: migraine headache) Rx Instructions: ONE TAB AT ONSET OF HEADACHE, MAY REPEAT ONCE IN 2 HRS, MAX 200 MG/24 HRS bupropion HCl 100 mg tablet sustained-release 12 hr 100 mg PO QAM Qty: 30 0RF budesonide-formoterol [Symbicort] 160-4.5 mcg/actuation HFA aerosol inhaler 2 puff inhalation BID Qty: 10.2 2RF nystatin 100,000 unit/mL suspension 500,000 unit PO QID Qty: 120 0RF Rx Instructions: swish and swallow 4 times a day. ibuprofen 800 mg tablet 800 mg PO TID PRN (Reason: pain) Qty: 60 0RF cyclobenzaprine 10 mg tablet 10 mg PO TID PRN (Reason: muscle spasm) Qty: 30 0RF Changed oxycodone 5 mg tablet 5 mg PO Q4-6H PRN (Reason: pain) Qty: 60 0RF Discharge Orders: Discharge Order (Routine); Ordered 11/23/23 Ordered By: Maricarmen Brown Patient Education: Acetaminophen (By mouth), Azithromycin (By mouth), Cefpodoxime Proxetil (By mouth), Morphine, Slow Release (By mouth), Fever in Adults (ED), Neutropenia (GEN) Additional Instructions: 1. Pain management: OxyContin (extended release morphine) 15mg twice a day, Ibuprofen 800mg three times a day, Gabapentin 600mg three times a day. These are Scheduled. If needed, You can add acetaminophen (500mg-1,000mg) every 4-6 hours, Flexeril (muscle relaxant), and then an oxycodone 5mg every 4-6 hours as a last resort. 2. You need antibiotics for 10 days total (counting your inpatient days) for the pneumonia. 3. See your PCP next week. Activity Level: Activity as Tolerated Discharge Diet: Diabetic Follow Up Appointments: Porfirio Orosco, LEANNE [Primary Care Provider] - None ( ) Ilana Steve MD [Staff Physician] - 11/27/23 2:15 pm ([facility] for follow-up.) Forms: [employer] Info Instructions
[2023-11-23] MEDS: ONDANSETRON 2 MG/ML inj 4 MG IVP (15:41)
--- NOTE | 2023-11-23 17:48 | PC.NURSE ---
Pt VSS. A & O. Tolerated a regular diet. IV removed and intact. Patient D/C at 1735 to home with significant other via wheelchair. Discharge education given by RN. Discharge packet signed by pt and RN.
== END 2023-11-23 17:35 | disposition home or self-care (01) | DRG 808 ==
LOC: ED 20:33 → MEDSURG 21:04
PROVIDERS: Family Medicine; Admitting Provider Student in an Organized Health Care Education/Training Program; Emergency Provider Family Medicine; PCP Physician Assistant Medical; Visit Provider Student in an Organized Health Care Education/Training Program
DX: D70.3 Neutropenia due to infection (principal); J18.8 Other pneumonia, unspecified organism; C83.38 Diffuse large B-cell lymphoma, lymph nodes of multiple sites; F33.3 Major depressive disorder, recurrent, severe with psychotic symptoms; J44.0 Chronic obstructive pulmonary disease with (acute) lower respiratory infection; K12.1 Other forms of stomatitis; E11.9 Type 2 diabetes mellitus without complications; Z79.4 Long term (current) use of insulin; R93.1 Abnormal findings on diagnostic imaging of heart and coronary circulation; G89.3 Neoplasm related pain (acute) (chronic); F17.210 Nicotine dependence, cigarettes, uncomplicated; E78.5 Hyperlipidemia, unspecified
CPT/HCPCS: 36415; 71046; 71260; 74177; 80048; 80053; 80076; 81001; 82803; 82962; 83605; 83735; 83880; 84145; 85025; 86140; 87040; 87070; 87086; 87449; 87581; 87631; 87899; 93306; 94761; 99284; 99285; A9270; J1650; J2405; J2543; J7030; Q9967; S4990

== ENCOUNTER 2023-12-27 10:51 | Outpatient (RCR) | payer OTHER, SELFPAY ==
[2023-10-11 17:03] LABS: Hematocrit* 42.4 % (33.0-51.0); Hemoglobin* 14.0 gm/dL (12.0-16.0); Immature Granulocytes Abs Auto 0.00 K/uL (0.00-0.30); Immature Granulocytes Pct Auto 0.0 %; Mean Corpuscular HGB Conc 33 gm/dL (32-36); Mean Corpuscular Hemoglobin 32 pg (26-34); Mean Corpuscular Volume 97 fL (80-100); RDW Coefficient of Variation % 12.9 % (11.5-15.5); Red Blood Count* 4.36 m/uL (4.00-5.20)
[2023-10-11 19:24] LABS: Lymphocytes Absolute Auto 0.80 K/uL (0.90-2.90); Slide Review Reflex Yes; White Blood Count* 1.30 K/uL (4.50-11.00)
[2023-10-11 20:32] LABS: Slide Review Acceptable Review (Acceptable)
[2023-10-18 12:45] LABS: Hematocrit* 45.9 % (33.0-51.0); Hemoglobin* 15.1 gm/dL (12.0-16.0); Immature Granulocytes Abs Auto 0.28 K/uL (0.00-0.30); Immature Granulocytes Pct Auto 2.7 %; Lymphocytes Absolute Auto 2.06 K/uL (0.90-2.90); Mean Corpuscular HGB Conc 33 gm/dL (32-36); Mean Corpuscular Hemoglobin 32 pg (26-34); Mean Corpuscular Volume 96 fL (80-100); RDW Coefficient of Variation % 13.1 % (11.5-15.5); Red Blood Count* 4.80 m/uL (4.00-5.20); White Blood Count* 10.19 K/uL (4.50-11.00)
[2023-10-18 13:02] LABS: Slide Review Reflex No
[2023-11-14 12:00] LABS: Hematocrit* 39.1 % (33.0-51.0); Hemoglobin* 13.0 gm/dL (12.0-16.0); Immature Granulocytes Abs Auto 0.02 K/uL (0.00-0.30); Immature Granulocytes Pct Auto 0.3 %; Mean Corpuscular HGB Conc 33 gm/dL (32-36); Mean Corpuscular Hemoglobin 32 pg (26-34); Mean Corpuscular Volume 96 fL (80-100); RDW Coefficient of Variation % 14.2 % (11.5-15.5); Red Blood Count* 4.09 m/uL (4.00-5.20); White Blood Count* 5.80 K/uL (4.50-11.00)
[2023-11-14 12:01] LABS: Lymphocytes Absolute Auto 0.90 K/uL (0.90-2.90); Slide Review Reflex No
[2023-12-06 14:47] LABS: Hematocrit* 33.8 % (33.0-51.0); Hemoglobin* 11.0 gm/dL (12.0-16.0); Immature Granulocytes Abs Auto 1.43 K/uL (0.00-0.30); Immature Granulocytes Pct Auto 17.1 %; Mean Corpuscular HGB Conc 33 gm/dL (32-36); Mean Corpuscular Hemoglobin 33 pg (26-34); Mean Corpuscular Volume 100 fL (80-100); RDW Coefficient of Variation % 15.9 % (11.5-15.5); Red Blood Count* 3.38 m/uL (4.00-5.20); White Blood Count* 8.38 K/uL (4.50-11.00)
[2023-12-06 15:04] LABS: Lymphocytes Absolute Auto 0.80 K/uL (0.90-2.90); Slide Review Reflex No
[2023-12-13 10:05] LABS: Hematocrit* 37.8 % (33.0-51.0); Hemoglobin* 12.4 gm/dL (12.0-16.0); Immature Granulocytes Abs Auto 0.55 K/uL (0.00-0.30); Immature Granulocytes Pct Auto 6.9 %; Mean Corpuscular HGB Conc 33 gm/dL (32-36); Mean Corpuscular Hemoglobin 33 pg (26-34); Mean Corpuscular Volume 100 fL (80-100); RDW Coefficient of Variation % 17.2 % (11.5-15.5); Red Blood Count* 3.80 m/uL (4.00-5.20); White Blood Count* 8.02 K/uL (4.50-11.00)
[2023-12-13 10:08] LABS: Lymphocytes Absolute Auto 0.90 K/uL (0.90-2.90); Slide Review Reflex Yes
[2023-12-13 10:32] LABS: Slide Review Acceptable Review (Acceptable)
[2023-12-27 11:32] LABS: Hematocrit* 35.8 % (33.0-51.0); Hemoglobin* 11.9 gm/dL (12.0-16.0); Immature Granulocytes Pct Auto 17.7 %; Mean Corpuscular HGB Conc 33 gm/dL (32-36); Mean Corpuscular Hemoglobin 34 pg (26-34); Mean Corpuscular Volume 102 fL (80-100); RDW Coefficient of Variation % 17.3 % (11.5-15.5); Red Blood Count* 3.50 m/uL (4.00-5.20); White Blood Count* 11.02 K/uL (4.50-11.00)
[2023-12-27 11:35] LABS: Immature Granulocytes Abs Auto 2.00 K/uL (0.00-0.30); Lymphocytes Absolute Auto 0.30 K/uL (0.90-2.90)
[2023-12-27 11:36] LABS: Slide Review Reflex No
[2024-01-03 09:22] LABS: Hematocrit* 36.1 % (33.0-51.0); Hemoglobin* 11.9 gm/dL (12.0-16.0); Immature Granulocytes Abs Auto 0.25 K/uL (0.00-0.30); Immature Granulocytes Pct Auto 3.3 %; Mean Corpuscular HGB Conc 33 gm/dL (32-36); Mean Corpuscular Hemoglobin 34 pg (26-34); Mean Corpuscular Volume 103 fL (80-100); RDW Coefficient of Variation % 18.1 % (11.5-15.5); Red Blood Count* 3.50 m/uL (4.00-5.20); White Blood Count* 7.53 K/uL (4.50-11.00)
[2024-01-03 09:26] LABS: Lymphocytes Absolute Auto 0.60 K/uL (0.90-2.90)
[2024-01-03 09:27] LABS: Slide Review Reflex No
== END 2024-12-12 23:59 | disposition home or self-care (01) ==
LOC: LAB 10:51
PROVIDERS: PCP Physician Assistant Medical; Referring Provider Internal Medicine Hematology & Oncology; Visit Provider Internal Medicine Hematology & Oncology
DX: J38.1 Polyp of vocal cord and larynx (principal); C83.38 Diffuse large B-cell lymphoma, lymph nodes of multiple sites
CPT/HCPCS: 36415; 85025

== ENCOUNTER 2024-01-17 18:52 | Emergency (ER) | payer OTHER, SELFPAY ==
[2024-01-17 18:57] VITALS: BP 107/70; PULSE 106; RESP 14; TEMP 36.9; O2SAT 97; BMI 28.2
--- NOTE | 2024-01-17 19:29 | CRLHL7_ITS ---
For Patients: As a result of the Century Cures Act, medical imaging exams and procedure reports are released immediately into your electronic medical record. You may view this report before your referring provider. If you have questions, please contact your health care provider. INDICATION: Headache, memory loss, history of lymphoma. TECHNIQUE: Multisequence multiplanar MRI of the brain prior to and following administration of 15 cc Dotarem gadolinium-based intravenous contrast. COMPARISON: None available. FINDINGS: Two punctate foci of hyperintensity on diffusion-weighted imaging in the left parietal lobe (series 3, image 40) without convincing correlate on the ADC map but mild associated T2/FLAIR hyperintensity. No focus of abnormal enhancement. No abnormal susceptibility artifact. 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 The ventricles are normal in size. Flow voids of the larger intracranial arteries are preserved. Bone marrow signal intensity of the calvarium is within normal limits. The orbits are unremarkable. A left maxillary mucous retention cyst is noted. IMPRESSION: 1. Punctate foci of hyperintensity on diffusion-weighted imaging within the left parietal lobe most consistent with subacute infarcts. No evidence of hemorrhagic conversion. 2. No focus of abnormal enhancement or evidence of PRECISION CROP MANAGER lymphoma. 3. 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 Dictated by Flakito Prasad MD @ 01/17/2024 9:51:52 PM (Electronically Signed)
--- NOTE | 2024-01-17 19:38 | CRLHL7_ITS ---
For Patients: As a result of the Century Cures Act, medical imaging exams and procedure reports are released immediately into your electronic medical record. You may view this report before your referring provider. If you have questions, please contact your health care provider. INDICATION: Back pain, history of lymphoma. TECHNIQUE: Multisequence multiplanar MRI of the lumbar spine without the use of intravenous contrast. COMPARISON: Correlated with CT abdomen/pelvis dated 11/21/2023. FINDINGS: Normal vertebral alignment and stature. Diffuse T1 hypointensity throughout the left bertha sacrum and pelvis with patchy associated postcontrast enhancement. No focus of abnormal intrathecal enhancement. T12-L1, L1-L2, L2-L3, and L3-L4: No significant spinal canal or neural foraminal stenosis. L4-L5: Mild disc desiccation and height loss. Shallow symmetric disc bulge. Mild facet joint arthrosis. No significant spinal canal or neural foraminal stenosis. L5-S1: Symmetric disc bulge. Moderate facet joint arthrosis. No significant spinal canal or neural foraminal stenosis. IMPRESSION: 1. Diffuse T1 hypointensity and heterogeneous postcontrast enhancement throughout the left bertha sacrum and pelvis. Findings raise concern for a marrow replacing process and further CT characterization could be considered. 2. No focus of abnormal intrathecal enhancement. 3. Symmetric disc bulging and facet joint arthrosis at L4-L5 and L5-S1 without significant spinal canal or neural foraminal stenosis. Dictated by Flakito Prasad MD @ 01/17/2024 10:17:03 PM (Electronically Signed)
--- NOTE | 2024-01-17 19:38 | CRLHL7_ITS ---
For Patients: As a result of the Century Cures Act, medical imaging exams and procedure reports are released immediately into your electronic medical record. You may view this report before your referring provider. If you have questions, please contact your health care provider. Indication: Back pain, history of lymphoma. Technique: Multisequence multiplanar MRI thoracic spine prior to and following administration 15 cc Dotarem gadolinium based intravenous contrast. Comparison: None available. Findings: Normal vertebral alignment, stature, and intrinsic marrow signal intensity. Mild multilevel disc desiccation loss most pronounced from T6-T9. The thoracic spinal cord is normal signal intensity. No focus of abnormal enhancement is identified. There is no high-grade spinal canal or neural foraminal stenosis. Impression: 1. No evidence of abnormal enhancement within the thoracic spine. 2. Mild multilevel thoracic spondylosis without significant spinal canal or neural foraminal stenosis. Dictated by Flakito Prasad MD @ 01/17/2024 9:56:29 PM (Electronically Signed)
--- OUTSIDE RECORDS SUMMARY | 2024-01-17 19:39 | XMS_ITS | Encounter Summary ---
Author Organization [facility] Address [address] [place] [id number] Care Team Providers Care Armored Car Guard Name Role Phone Umberto Mauricio Primary Care Provider [phone] Asad Coreas MD Unavailable [phone] [facility] e Reason for Visit * Reason Onset Date Comments Call Back 08/24/2021 Pt would like to be seen for med check Encounter Details Date Type Department Care Team (Late st Contact Info) Description 08/24/2021 Telephone [facility] [id number] [place] [phone] [place] [address] [place], [place] [phone] Call Back (Pt would like to be seen for med check) Social History Tobacco Use Types Packs/Day Years Used Date Smoking Tobacco: Every Day Cigarettes Smokeless Tobacco: Never Comments:30 yrs Alcohol Use Standard Drinks/Week Comments No 0 (1 standard drink = 0.6 oz pur e alcohol) Comments No Sex and Gender Information Value Date Recorded Sex Assigned at Not on file Legal 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 YES Travel screening: Not Applicable documented in this encounter Plan of Treatment Not on file documented as of this encounter Visit Diagnoses Not on filedocumented in this encounter Care Teams Armored Car Guard Relationship Specialty Start Date End Date Umberto Mauricio PCP - General Family Practice 04/29/19 [place] [address] [place] [address] Assigned PCP 05/05/21 10/28/21 [facility] [address] [place] [address] Assigned PCP 03/08/23 documented as of this encounter
--- OUTSIDE RECORDS SUMMARY | 2024-01-17 19:39 | XMS_ITS | Encounter Summary ---
Author Organization [facility] Address [address] [place] [address] Care Team Providers Care Director Of Family Service Center Name Role Phone Umberto Mauricio Primary Care Provider Asad Coreas MD Unavailable [phone] 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
--- OUTSIDE RECORDS SUMMARY | 2024-01-17 19:39 | XMS_ITS | Clinical Summary ---
Author Organization [place] Address [address] [place] [address] Care Team Providers Care Electrician Station Assistant Name Role Phone Umberto Mauricio Primary Care Provider [phone] [facility] Unavailabl e Allergies No known active allergies Medications ibuprofen (ADVIL/MOTRIN) 600 MG tablet Take 600 [...] HFA/PROVENTIL HFA/VENTOLIN HFA) 108 (90 Base) MCG/ACT inhalerIndicati ons:COPD with chronic bronchitis (H) Inhale 2 puffs into the lungs every 4 hours as needed for wheezing (1st choice) 18 g 3 Active ARIPiprazole (ABILIFY) 10 MG tabletIndicatio ns:Severe episode of recurrent major depressive disorder, with psychotic features (H) Take 1 tablet (10 mg) by mouth daily 60 tablet 3 Active atorvastatin (LIPITOR) 40 MG tabletIndicatio ns:Hypercholest erolemia Take 1 tablet (40 mg) by mouth every morning 60 tablet 3 Active budesonide-form oterol (SYMBICORT) 160-4.5 MCG/ACT InhalerIndicati ons:COPD with chronic bronchitis (H) Inhale 2 puffs into the lungs two times daily 10.2 g 3 Active gabapentin (NEURONTIN) 600 MG tabletIndicatio ns:Severe episode of recurrent major depressive disorder, with psychotic features (H) Take 1 tablet (600 mg) by mouth 3 times daily 180 tablet 3 Active ipratropium - albuterol 0.5 mg/2.5 mg/3 mL (DUONEB) 0.5-2.5 (3) MG/3ML neb solutionIndicat ions:COPD with chronic bronchitis (H) Take 1 vial (3 mLs) by nebulization 3 times daily 540 mL 3 Active metFORMIN (GLUCOPHAGE) 500 MG tabletIndicatio ns:Type 2 diabetes mellitus without complication, without long-term current use of insulin (H) Take 2 tablets (1,000 mg) by mouth 2 times daily (with meals) (Morning and lunchtime) 240 tablet 3 Active sertraline (ZOLOFT) 100 MG tabletIndicatio ns:Severe episode of recurrent major depressive disorder, with psychotic features (H) Take 1 tablet (100 mg) by mouth daily 60 tablet 3 Active SUMAtriptan (IMITREX) 100 MG tabletIndicatio ns:Intractable chronic migraine without aura and without status migrainosus Take 1 tablet (100 mg) by mouth at onset of headache for migraine -may repeat once in 2 hours. Max 200 mg in 24 hours. 60 tablet 3 Active nicotine (NICORETTE) 2 MG gumIndications: Tobacco use disorder Place 1 each (2 mg) inside cheek every hour as needed for smoking cessation 240 each 3 Active nicotine (NICODERM CQ) 21 MG/24HR 24 hr patchIndication s:Tobacco use disorder Place 1 patch onto the skin daily 60 patch 3 Active cyclobenzaprine (FLEXERIL) 10 MG tabletIndicatio ns:Intractable chronic migraine without aura and without status migrainosus Take 1 tablet (10 mg) by mouth 2 times daily as needed for muscle spasms 45 tablet 1 3 Active Active Problems Problem Noted Date Diagnosed [...] 07/11/2016,09/25/2015, 013 Influenza (IIV3) PF 02/21/2012,01/19/2011,2006 Influenza (prior to 2023) 01/19/2011,03/29/2006 Influenza Vaccine >6 months,quad, PF ,11/28/2018,12/14/2017,2016,09/25/2015,01/06/2015 Influenza Vaccine, 6+MO IM (QUADRIVALENT W/PRESERVATIVES) 09/25/2015 Pneumococcal 20 valent Conju gate (Prevnar 20) [...] week 10/20/2021 How often do you attend [facility] or baptism services? 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 Gender Identity Not on file Sexual Orientation Not on file Last Filed Vital Signs Vital Sign Reading Time Taken Comments Blood Pressure 119/69 12/15/2022 5:00 AM CDT Pulse 84 12/15/2022 5:00 AM CDT Temperature 36.8 C (98.2 F) 12/15/2022 5:00 AM CDT Respiratory Rate 16 12/15/2022 5:00 AM CDT [...] this topic Medical Devices Implanted Type Area Perlite Grinder Device Identifier Shelf Expiration Date Model / Serial / Lot Mesh Sling Single Incision Altis [id number] Implanted:Qty: 1 on 01/24/2016 by Magnus Denis MD at [facility] Mesh N/A: Vagina COLOPLAST 09/11/2018 [id number] / [id number] / [id number] Procedures Procedure Name Priority Date/Time Associated Diagnosis Comments RESPIRATORY PANEL PCR Routine 11/22/2023 10:20 AM CDT HEMOGLOBIN A1C Routine 12/12/2022 2:24 PM CDT BASIC METABOLIC PANEL STAT 12/07/2022 1:[address] CHEST PE ABDOMEN PELVIS W CONTRAST STAT 05/23/2021 12:00 AM CDT from Last 3 Months or Most Recently Relevant to Health Maintenance Results * Respiratory Panel PCR (11/22/2023 10:20 AM CDT) Adenovirus Not Detected Not Detected 11/22/2023 7:55 PM CDT [facility] Coronavirus Not Detected Not Detected 11/22/2023 7:55 PM CDT [facility] Comment:This test detects Co ronavirus 229E, HKU1, NL63 and OC43 but does not distinguish between them. It does not detect MERS ( Respiratory Syndrome), SARS (Severe Acute Respiratory Syndrome) or 2019-nCoV (Novel 2018) Coronavirus. Human Metapneumovirus Not Detected Not Detected 11/22/2023 7:55 PM CDT [facility] Human Rhin/Enterovirus Not Detected Not Detected 11/22/2023 7:55 PM CDT [facility] Influenza A Not Detected Not Detected 11/22/2023 7:55 PM CDT [facility] Influenza A, H1 Not Detected Not Detected 11/22/2023 7:55 PM CDT [facility] Influenza A 2009 H1N1 Not Detected Not Detected 11/22/2023 7:55 PM CDT [facility] Influenza A, H3 Not Detected Not Detected 11/22/2023 7:55 PM CDT [facility] Influenza B Not Detected Not Detected 11/22/2023 7:55 PM CDT [facility] Parainfluenza Virus 1 Not Detected Not Detected 11/22/2023 7:55 PM CDT [facility] Parainfluenza Virus 2 Not Detected Not Detected 11/22/2023 7:55 PM CDT [facility] Parainfluenza Virus 3 Not Detected Not Detected 11/22/2023 7:55 PM CDT [facility] Parainfluenza Virus 4 Not Detected Not Detected 11/22/2023 7:55 PM CDT [facility] Respiratory Syncytial Virus A Not Detected Not Detected 11/22/2023 7:55 PM CDT [facility] Respiratory Syncytial Virus B Not Detected Not Detected 11/22/2023 7:55 PM CDT [facility] Chlamydia Pneumoniae Not Detected Not Detected 11/22/2023 7:55 PM CDT [facility] Mycoplasma Pneumoniae Not Detected Not Detected 11/22/2023 7:55 PM CDT [facility] Swab NASOPHARYNGEAL STRUCTURE / Unknown Non-blood Collection / Unknown 11/22/2023 10:20 AM CDT 11/22/2023 12:45 PM CDT Narrative [facility] - 11/22/2023 7:55 PM CDT The ePlex Respiratory Panel is a qualitative nucleic acid, multiplex, in vitro diagnostic test for the simultaneous detection and identification of multiple respiratory viral and bacterial nucleic acids in nasopharyngeal swabs collected in viral transport media from individual exhibiting signs and symptoms of respiratory infection. The assay has received FDA approval for the testing of nasopharyngeal (NARCOTICS DETECTIVE) swabs only. This test is used for clinical purposes and should not be regarded as investigational or for research. This laboratory is certified under the Clinical Laboratory Improvement Amendments of 1988 (CLIA-88) as qualified to perform high complexity clinical laboratory testing. Maricarmen Brown MD LAB - MICRO GENERAL ORDE SHALINI Final Result [facility] Inf. Diseases Diag. Lab [address] [facility], [address] [place] [address], [facility] * (ABNORMAL) Hemoglobin A1c (12/12/2022 2:24 PM CDT) Pathologist [facility] Estimated Average Glucose 154 mg/dL 12/12/2022 2:58 PM CDT [facility] Hemoglobin A1C 7.0(H) <5.7 % 12/12/2022 2:58 PM CDT [facility] Comment: Normal <5.7% Prediabetes 5.7-6.4% Diabetes 6.5% or higher Note: Adopted from ADA consensus guidelines. Blood STRUCTURE OF RIGHT UPPER LIMB / Unknown Venipuncture / Unknown 12/12/2022 2:24 PM CDT 12/12/2022 2:28 PM CDT us Alfreda Salcido CNP LAB - BLOOD ORDERABLES Final Re sult [facility] [address] [place] [address], [facility] [phone] * (ABNORMAL) Basic metabolic panel (12/07/2022 1:58 PM CDT) Sodium 135 135 - 145 mmol/L 12/07/2022 [...] CDT Jesus Soliz MD LAB - BLOOD ORDERABLES Final Result LABORATORY [facility] [address] floor, [address] [place] [address], [facility] [phone] * CT Chest (PE) Abdomen Pelvis w [...] CT ABDOMEN AND PELVIS WITH CONTRAST LOCATION: [facility] DATE/TIME: 05/22/2021 11:59 PM INDICATION: Pleuritic pain. [...] CT ABDOMEN AND PELVIS WITH CONTRAST LOCATION: [facility] DATE/TIME: 05/22/2021 11:59 PM INDICATION: Pleuritic pain. [...] without evidence of diverticulitis. Aamir Bethea MD IM CT ORDERABLES Final Result from Last 3 Months or Most Recently Relevant to Health Maintenance Insurance [facility] * Guarantor: Tejas Bhatt Account Type Relation to Patient Date of Phone Billing Address Employer Related Employer [address] [facility] [id number] [facility] Advance Directives For more information, please contact: [phone] * Full Code (Latest Code Status on [...] with dell nt/legal decision maker Care Teams Electrician Station Assistant Relationship Specialty Start Date End Date Umberto Mauricio PCP - General Family Practice 04/29/19 Clinic - [facility] [address] [place] [address] Assigned PCP 03/08/23
--- OUTSIDE RECORDS SUMMARY | 2024-01-17 19:39 | XMS_ITS | Encounter Summary ---
[facility] Organization [facility] Address [address] [place] [address] Care Team Providers Care Metal Products Viewer Name Role Phone Jessica Rivas MD Primary Care Provider [phone] Encounter Details Date Type Department Care Team (Late st Contact Info) Description 04/27/2015 Correspondence External to External, [place] [address] [facility] [facility] [employer] Social History Tobacco [...] R/O COVID19 04/06/2021 04/06/2021 04/07/2021 5:46 AM IMPORT/EXPORT ANALYST documented as of this encounter Care Teams Metal Products Viewer Relationship Specialty Start Date End Date Jessica Rivas MD [address] [place] [address] PCP - General Family Practice 05/10/11 documented as of this encounter
--- OUTSIDE RECORDS SUMMARY | 2024-01-17 19:39 | XMS_ITS | Encounter Summary ---
Author Organization [place] Address [address] [place] [address] Care Team Providers Care Kiln Head House Operator Name Role Phone Umberto Mauricio Primary Care Provider Asad Coreas MD Unavailable [phone] [facility] e Encounter Details Date Type Department Care Team (Late st Contact Info) Description 05/26/2021 MyC Medical Advice [facility] [address] [place] [address] [place] [address] [place] [address] Social History Tobacco Use Types Packs/Day Years Used Date Smoking Tobacco: Every Day Cigarettes Smokeless Tobacco: Never Comments:30 yrs Alcohol Use Standard Drinks/Week Comments No 0 (1 standard drink = 0.6 oz pur e alcohol) Comments No Sex and Gender Information Value Date Recorded Sex Assigned at Not on file Legal Sex Female 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
--- OUTSIDE RECORDS SUMMARY | 2024-01-17 19:39 | XMS_ITS | Encounter Summary ---
Author Organization [place] Address [address] [place] [address] Care Team Providers Care Supervisor Pole Yard Name Role Phone Umberto Mauricio Primary Care Provider [phone] Asad Coreas MD Unavailable [phone] [facility] e Encounter Details Date Type Department Care Team (Late st Contact Info) Description 08/24/2021 MyC Medical Advice [facility] [id number] [place] [id number] Joseline Steiner Social History Tobacco Use Types Packs/Day Years Used Date Smoking Tobacco: Every Day Cigarettes Smokeless Tobacco: Never Comments:30 yrs Alcohol Use Standard Drinks/Week Comments No 0 (1 standard drink = 0.6 oz pur e alcohol) Comments No Sex and Gender Information Value Date Recorded Sex Assigned at Not on file Legal Sex Female 4: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
--- OUTSIDE RECORDS SUMMARY | 2024-01-17 19:39 | XMS_ITS | Encounter Summary ---
Author Organization [place] Address [address] [place] [address] Care Team Providers Care Certified Addiction Counselor Name Role Phone Umberto Mauricio Primary Care Provider [phone] [facility] Encounter Details Date Type Department Care Team (Late st Contact Info) Description 11/08/2021 MyC Medical Advice [facility] [id number] [place] [phone] Jonas Doss, DIETETIC TECHNICIAN REGISTERED Social History Tobacco Use Types Packs/Day Years [...] often do you attend chur ch or episcopal services? Patient declined 10/20/2021 Do you belong to any clubs o r organizations such as methodist groups, unions, fraternal or athletic groups, or [...] Answer Date Recorded PHQ-2 Score 0 10/20/2021 [facility] of Occupat ional Health - Occupational Stress [...] things needed for daily living? 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
--- OUTSIDE RECORDS SUMMARY | 2024-01-17 19:39 | XMS_ITS | Clinical Summary ---
Author Organization [facility] Address [address] [place] [address] Care Team Providers Care Shop Lead Name Role Phone Jessica Rivas MD Primary Care Provider [phone] Source Comments You are receiving this document as you are listed as the primary care provider,follow-up provider, or the patient has been referred to you for consultation.This is in compliance with the Medicare and[facility] Hospital[facility] EHR Incentive Program,which states Providers who transition their patient to another setting of careor provider of care or refers their patient to another provider of care shouldprovide summary care record for each transition of care or referral. [facility] Allergies No known active allergies Medications Medication [...] 07/11/2016,09/25/2015,11/13/2012 HepB, Unspecified Formulation 09/25/2015, 013 Influenza ([place] Only) (Flul aval Quad 0.5, 3+ yrs) 09/25/2015 Influenza IIV4 (Quadrivalent ) 0.5mL (53480) 11/28/2018,12/14/2017,11/13/2016,2015,01/06/2015 Influenza, Unspecified Formulation 11/24/2012, PPSV23 (Pneumovax) [...] Comments Blood Pressure 124/85 04/06/2021 1:58 PM PERSONNEL INTERVIEWER Pulse 106 04/06/2021 1:58 PM PERSONNEL INTERVIEWER Temperature 36.8 C (98.2 F) 04/06/2021 1:58 PM PERSONNEL INTERVIEWER Respiratory Rate 18 04/06/2021 1:58 PM PERSONNEL INTERVIEWER Oxygen Saturation 96% 04/06/2021 1:58 PM PERSONNEL INTERVIEWER Inhaled Oxygen Concentration - - Weight 100.2 kg (221 lb) 04/15/2020 7:41 AM PERSONNEL INTERVIEWER Height 162.6 cm (5' 4) 04/15/2020 7:41 AM PERSONNEL INTERVIEWER Body Mass Index 37.93 04/15/2020 7:41 AM PERSONNEL INTERVIEWER Plan of Treatment Health Maintenance Due Date [...] BASIC METABOLIC PANEL STAT 04/06/2021 2:43 PM PERSONNEL INTERVIEWER SOB (shortness of breath) Cough HEPATITIS C ANTIBODY, WITH REFLEX Routine 04/23/2014 3:01 PM CDT RUQ pain LIPID PANEL & DIRECT LDL (IF NEEDED) Routine 02/25/2014 8:53 AM PERSONNEL INTERVIEWER Hypercholesterolemia HGB A1C Routine 02/25/2014 8:53 AM PERSONNEL INTERVIEWER Type II or unspecified type diabetes mellitus without mention of complication, not stated as uncontrolled ALBUMIN/CREAT RATIO Routine 10/09/2013 7:37 AM CDT Diabetes mellitus, type 2 MM MAMMOGRAM SCREENING BILAT W CAD Routine 06/14/2012 7:57 AM CDT from Last 3 Months or Most Recently Relevant to Health Maintenance Results * (ABNORMAL) Basic Metabolic Panel (04/06/2021 2:43 PM PERSONNEL INTERVIEWER) Sodium 145 136 - 145 mmol/L 04/06/2021 3:24 PM [facility] Potassium 4.0 3.5 - 5.1 mmol/L 04/06/2021 3:24 PM [facility] Chloride 109 98 - 109 mmol/L 04/06/2021 3:24 PM [facility] CO2 25 20 - 29 mmol/L 04/06/2021 3:24 PM [facility] Anion Gap 11 7 - 16 mmol/L 04/06/2021 3:24 PM [facility] Calcium 9.3 8.4 - 10.4 mg/dL 04/06/2021 3:24 PM [facility] BUN 8 7 - 26 mg/dL 04/06/2021 3:24 PM [facility] Creatinine 0.70 0.55 - 1.02 mg/dL 04/06/2021 3:24 PM [facility] GFR, Estimated >60 >60 mL/min/1.7 3m2 04/06/2021 3:24 PM [facility] Glucose 137(H) 70 - 100 mg/dL 04/06/2021 3:24 PM [facility] Comment:The given reference range is for the fasting state. Non-fasting reference range for glucose is 70 - 180 mg/dL. Hours Fasting Unknown 04/06/2021 3:24 PM [facility] Blood Venipuncture / Unknown 04/06/2021 2:43 PM PERSONNEL INTERVIEWER 04/06/2021 2:45 PM PERSONNEL INTERVIEWER Nitza Mccarty MD LAB_1 [facility] [address] [place] [address], [facility] [phone] * HEPATITIS C ANTIBODY, WITH REFLEX (04/23/2014 3:01 PM CDT) Anti-HCV Negative (Non Reactive) NEGNR [facility] Comment:Does Not Rule Out In fection with HCV 04/23/2014 3:01 PM CDT 04/23/2014 3:03 PM CDT Narrative [facility] - 04/24/2014 11:29 AM CDT Performed at [facility], [address] [place] [address] Juvenal Cabrera MD LAB_1 Performing Organization Address [facility] de Phone Number [facility] [phone] * (ABNORMAL) LIPID PANEL AND DIRECT LDL(IF NEEDED) (02/25/2014 8:53 AM PERSONNEL INTERVIEWER) Hours Fasting 12 hours [facility] Cholesterol 249(H) 0 - 199 mg/dl [facility] Triglyceride 120 0 - 149 mg/dl [facility] HDL 56 >40 mg/dl [facility] LDL, Calc. 169(H) 0 - 129 mg/dl [facility] Non HDL Chol, Calc 193 mg/dl [facility] 02/25/2014 8:53 AM PERSONNEL INTERVIEWER 02/25/2014 9:08 AM PERSONNEL INTERVIEWER Narrative [facility] - 02/25/2014 4:50 PM PERSONNEL INTERVIEWER Performed at [facility], [address] [place] [address] Jessica Rivas MD LAB_1 Performing Organization Address [facility] de Phone Number [facility] [phone] * (ABNORMAL) HGB A1C (02/25/2014 8:53 AM PERSONNEL INTERVIEWER) Hgb A1c 6.2(H) 4.3 - 5.6 % [facility] Comment: See (NOTE) For patients not previously diagnosed with diabetes: 5.7-6.4%: Increased risk for diabetes (prediabetic) 6.5% and greater: Diagnostic for diabetes For diabetic patients: <8.0%: Goal of therapy for ages 18-75 - physicians may recommend a higher or lower goal for specific individuals 02/25/2014 8:53 AM PERSONNEL INTERVIEWER 02/25/2014 9:08 AM PERSONNEL INTERVIEWER Narrative [facility] - 02/25/2014 3:40 PM PERSONNEL INTERVIEWER Performed at [facility], [address] [place], [place] [id number] Jessica Rivas MD LAB_1 Performing Organization Address [facility] de Phone Number [facility] [phone] * MICROALB/CREAT RATIO (10/09/2013 7:37 AM CDT) Albumin, Urine, Random <0.5 mg/dl [facility] Creatinine,Ur Random 131.3 mg/dl [facility] Alb/Creat Ratio, Urine, Random <4 <30 mg/g creatinine [facility] Urine specimen (specimen) 10/09/2013 7:37 AM CDT 10/09/2013 7:45 AM CDT Narrative [facility] - 10/09/2013 1:25 PM CDT Performed at [facility], [address] [place], [place] [id number] Jessica Rivas MD LAB_1 Performing Organization Address [facility] de Phone Number [facility] [phone] * MAMMOGRAM SCREENING BILATERAL (06/14/2012 7:57 AM CDT) Anatomical Region Laterality Modality Breast Bilateral Mammography 06/14/2012 7:57 AM CDT Narrative 06/15/2012 4:32 PM CDT Clinical History: Asymptomatic. Comparison: 03/29/2011 Breast Density: [...] Recently Relevant to Health Maintenance Care Teams Shop Lead Relationship Specialty Start Date End Date Jessica Rivas MD [address] [place] [address] PCP - General Family Practice 05/10/11
--- OUTSIDE RECORDS SUMMARY | 2024-01-17 19:39 | XMS_ITS | Encounter Summary ---
Author Organization [place] Address [address] [place] [address] Care Team Providers Care Salesperson Jewelry Name Role Phone Deisi Guillen MD Primary Care Provider + [facility] Sarah Fairbanks Primary Care Provider Umberto Mauricio Primary Care Provider Asad Coreas MD Unavailable [phone] [facility] Unavailabl e Reason for Visit * Reason Onset Date Comments MH/CD Inpatient 06/22/2016 Encounter Details Date Type Department Care Team ([facility] st Contact Info) Description 06/22/2016 [facility] Behavioral Health Intake [address] [place] [phone] Generic, Behavioral Intake, MH/CD Inpatient Social History Tobacco Use Types Packs/Day Years Used Date Smoking Tobacco: Every Day Smokeless Tobacco: Never Alcohol Use Standard Drinks/Week Comments No 0 (1 standard drink = 0.6 oz pur e alcohol) Comments No Sex and Gender Information Value Date Recorded Sex Assigned at Not on file Legal Sex Female 4:02 AM 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 Family [...] Time Rule Out COVID-19 Comment:Negative per lab 3..04/30/2019 04/30/2019 020 7:13 PM CDT Rule Out COVID-19 05/22/2021 05/22/2021 05/23/2021 12:28 AM CDT documented as of this encounter Care Teams Salesperson Jewelry Relationship Specialty Start Date End Date Deisi Guillen MD [facility] [address] [place] [address] PCP - General Family Practice 01/24/16 06/22/18 [facility] [address] [place] [address] PCP - General 06/23/18 04/28/19 Umberto Mauricio [address] [place] [address] PCP - General Family Practice 04/29/19 [place] [address] [facility]3][place] [address] Assigned PCP 05/05/21 10/28/21 [facility] [address] [place] [address] Assigned PCP 03/08/23 documented as of this encounter
--- OUTSIDE RECORDS SUMMARY | 2024-01-17 19:39 | XMS_ITS | Encounter Summary ---
Author Organization [place] Address [address] [place] [address] Care Team Providers Care Driver Messenger Name Role Phone Umberto Mauricio Primary Care Provider Asad Coreas MD Unavailable [phone] [facility] e Encounter Details Date Type Department Care Team (Late st Contact Info) Description 08/18/2021 My[facility] Medical Advice [facility] [id number] [place] [phone] Susie Osei SKI TECHNICIAN Social History Tobacco Use Types Packs/Day Years Used Date Smoking Tobacco: Every Day Cigarettes Smokeless Tobacco: Never Comments:30 yrs Alcohol Use Standard Drinks/Week Comments No 0 (1 standard drink = 0.6 oz pur e alcohol) Comments No Sex and Gender Information Value Date Recorded Sex Assigned at Not on file Legal Sex Female 4:02 AM OFFICE MACHINE TECHNICIAN Gender Identity Not on file Sexual Orientation Not on file documented as of this encounter Plan of Treatment Not on file documented as of this encounter Visit Diagnoses Not on filedocumented in this encounter Care Teams Driver Messenger Relationship Specialty Start Date End Date Umberto Mauricio PCP - General Family Practice 04/29/19 [place] [address] [place], [place] [id number] Assigned PCP 05/05/21 10/28/21 [facility] [address] [place] [address] Assigned PCP 03/08/23 documented as of this encounter
--- OUTSIDE RECORDS SUMMARY | 2024-01-17 19:39 | XMS_ITS | Referral Summary ---
Author Organization [place] Address [address] [place] [address] Care Team Providers Care Case Liner Name Role Phone Umberto Mauricio Primary Care Provider [phone] [facility] Unavailabl e Allergies No known active allergies [...] How often do you attend chur or gnosticism services? 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 This test is used for clinical purposes and should not be regarded as investigational or for research. This laboratory is certified under the Clinical Laboratory Improvement Amendments of 1988 (CLIA-88) as qualified to perform high complexity clinical laboratory testing. Maricarmen Brown MD LAB - MICRO [facility] Final Result [facility] Inf. Diseases Diag. Lab [address] [facility], [address] [place] [phone] * (ABNORMAL) Hemoglobin A1c (12/12/2022 2:24 PM CDT) Pathologist [facility] Estimated Average Glucose 154 mg/dL 12/12/2022 2:58 PM CDT [facility] Hemoglobin A1C 7.0(H) <5.7 % 12/12/2022 2:58 PM CDT [facility] Comment: Normal <5.7% Prediabetes 5.7-6.4% Diabetes 6.5% or higher Note: Adopted from ADA consensus guidelines. Blood STRUCTURE OF RIGHT UPPER LIMB / Unknown Venipuncture / Unknown 12/12/2022 2:24 PM CDT 12/12/2022 2:28 PM CDT Alfreda Reder INSURANCE FOLLOW UP SPECIALIST LAB - BLOOD ORDERABLES Final Re sult [facility] Acute Care Lab [address] [place] [address], [facility] [phone] * (ABNORMAL) Basic metabolic panel (12/07/2022 1:58 [...] LAB - BLOOD ORDERABLES Final Result LABORATORY [facility] Acute Care Lab [address] 1st floor, [address] [place] [address], [facility] [phone] * CT Chest (PE) Abdomen Pelvis w [...] ABDOMEN AND PELVIS WITH CONTRAST LOCATION: [facility] DATE/TIME: 05/22/2021 11:59 PM INDICATION: Pleuritic [...] ABDOMEN AND PELVIS WITH CONTRAST LOCATION: [facility] DATE/TIME: 05/22/2021 11:59 PM INDICATION: Pleuritic [...] Most Recently Relevant to Health Maintenance Insurance [facility] Address: [facility] [address] [place] [phone] [facility] * Guarantor: Tejas Bhatt Account Type Relation to Patient Date of Phone Billing Address Employer Related Employer [address] [place] [address] [facility] Advance Directives For more information, please contact: [phone] * Full Code (Latest Code Status on [...] with dell nt/legal decision maker Care Teams Case Liner Relationship Specialty Start Date End Date Umberto Mauricio PCP - General Family Practice 04/29/19 [facility] [address] [place] [address] Assigned PCP 03/08/23
--- OUTSIDE RECORDS SUMMARY | 2024-01-17 19:39 | XMS_ITS | Encounter Summary ---
Author Organization [facility] Address [address] [place] [address] Care Team Providers Care Reeler Operator Name Role Phone Jessica Rivas MD Primary Care Provider Encounter Details Date Type Department Care Team (Latest Contact Info) Description 05/05/2014 Consent for Procedure/Treatm ent Gastroenterology Procedures at [address] [place] [phone] Juvenal Cabrera MD INSTRUCTIONS AFTER UPPER ENDOSCOPY [...] R/O COVID19 04/06/2021 04/06/2021 04/07/2021 5:46 AM BACON SLICER documented as of this encounter Care Teams Reeler Operator Relationship Specialty Start Date End Date Jessica Rivas MD [address] [place] [address] PCP - General Family Practice 05/10/11 documented as of this encounter
--- OUTSIDE RECORDS SUMMARY | 2024-01-17 19:40 | XMS_ITS ---
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 Past Plans No past plan information found. Radiation Treatments * No radiation treatments are documented for this patient in [facility]. Treatments may have been administered in another system. Lifetime Dose Tracking * Chemical Lifetime Dose Automatic Entry Manual Entr y doxorubicin 313.656 mg/m2 (600 mg) 313.656 mg/m2 (600 mg) 0 mg/m2 (0 mg) Pediatric total anthracycline 313.656 mg/m2 (600 mg) 313.656 mg/m2 (600 mg) 0 mg/m2 (0 mg) Adult total anthracycline 313.656 mg/m2 (600 mg) 313.656 mg/m2 (600 mg) 0 mg/m2 (0 mg)
--- OUTSIDE RECORDS SUMMARY | 2024-01-17 19:40 | XMS_ITS | Encounter Summary ---
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
--- OUTSIDE RECORDS SUMMARY | 2024-01-17 19:40 | XMS_ITS | Encounter Summary ---
Author Organization [facility] Address [address] [place] [address] Care Team Providers Care Sea Captain Name Role Phone Jessica Rivas MD Primary Care Provider Encounter Details Date Type Department Care Team (Latest Contact Info) Description 05/05/2014 Consent for Procedure/Treatm ent Gastroenterology Procedures at [address] [place] [phone] Juvenal Cabrera MD INFORMED CONSENT FOR TREATMENTS [...] R/O COVID19 04/06/2021 04/06/2021 04/07/2021 5:46 AM MARKING DEVICES ASSEMBLER documented as of this encounter Care Teams Sea Captain Relationship Specialty Start Date End Date Jessica Rivas MD [address] [place] [address] PCP - General Family Practice 05/10/11 documented as of this encounter
--- OUTSIDE RECORDS SUMMARY | 2024-01-17 19:40 | XMS_ITS | Encounter Summary ---
Author Organization [facility] Address [address] [place] [address] Care Team Providers Care Regional Education Coordinator Name Role Phone Elsewhere, Pcp Primary Care Provider Unavailabl e Reason for Visit * Outpatient (Routine) - Closed Specialty Diagnoses / Procedures Referred By Contdelia t Referred To Contact Diagnoses Vertigo Benign Paroxysmal Positional Bilateral Procedures Audio-Vestibular Balance evaluation Eric Renner M.D. [address] [place] [phone] Phone: tel: fax: [facility] Referral ID Status Reason Start Date Expiration Date Visits Re quested Visits Authorized [id number] Closed 10/17/2023 10/16/2024 1 1 Encounter Details Date Type Department Care Team (Latest Contact Info) Description 01/14/2024 9:15 AM DIRECTOR TALENT MANAGEMENT Diagnostic Department of Otorhinolaryngology in [place], [place] [address] [place] [phone] Eric Renner M.D. [address] [place] [phone] Wendy Moon Au.D., C.C.C.-A [address] [place] [phone] Vertigo (Primary Dx); Vertigo Benign Paroxysmal Positional Bilateral; Tinnitus Bilateral; Loss Hearing Sensorineural Bilateral Social History Tobacco Use Types Packs/Day Years Used Date Smoking Tobacco: Every Day Cigarettes 1.5 81.9 Started: 02/12/1982 Smokeless Tobacco: Never Alcohol Use Standard Drinks/Week Comments Not Currently 0 (1 standard drink = 0.6 oz pur e alcohol) rarely [facility] Utilities Answer Date Recorded In the past 12 months has th e electric, gas, oil, or water company threatened to shut off services in your home? No 08/15/2023 PHQ-2 Answer Date Recorded PHQ-2 Score 2 01/14/2024 Exercise Vital Sign Answer Date Recorde d [...] a [facility] place to live 08/15/2023 Comments No Sex and Gender Information Value Date Recorded Sex Assigned at Female 08/15/2023 7:51 AM CDT Legal Sex Female 8:36 AM CDT Gender Identity Female 08/15/2023 7:51 AM CDT Sexual Orientation Straight 08/15/2023 7: 51 AM CDT documented as of this encounter Procedure Notes * Wendy Moon Au.D., C.C.C.-A - 01/14/2024 9:02 AM CST SUBJECTIVE CHIEF COMPLAINT / REASON FOR VISIT ?? Episodic vertigo HISTORY OF PRESENT COMPLAINT Ana Fuller is a 53 year old patient who presents for an audiogram prior to a vestibular evaluation. For more information concerning this patient's dizziness, please refer to my colleague Dr. Osiel Middleton 's forthcoming note regarding their vestibular evaluation. Ana reports episodic vertigo lasting seconds to minutes. She endorses intermittent bilateral tinnitus and sometimes hears her heartbeat in her ears. She endorses a history of chronic ear infections as a child with multiple P.E. tube placements and has undergone non-lac vieux chemotherapy. Today, the patient denied subjective difficulty hearing, otalgia, otorrhea, aural fullness, loudness sensitivity, family history of early onset hearing loss, history of head and/or neck radiation treatment, and history of noise exposure. OBJECTIVE See Audiological Evaluation Form. Thresholds were established using HDA-300 earphones and verified with ER-3A insert earphones which yielded minimal changes between transducers. ASSESSMENT/PLAN ?? Asymmetric hearing loss, right worse than left, from 6-10 kHz ?? Normal hearing from 0.25-6 kHz in the left ear and 0.25-4 kHz in the right sloping to mild-moderate sensorineural hearing loss through 8 kHz bilaterally. ?? Extended high-frequency testing was performed for monitoring purposes. ?? Word recognition ability was assessed using recorded isophoneme stimuli, 20- word lists, and resulted in scores of 100% in the right ear and 100% in the left. ?? Tympanograms were Type Ad (high tympanic mobility, normal middle ear pressure and ear canal volume) bilaterally. ?? Acoustic Reflex Testing at 0.5, 1 and 2 kHz in the ipsilateral and contralateral conditions revealed grossly normal thresholds except for grossly elevated thresholds in the left contralateral condition. CARE PLAN ?? Follow up with vestibular evaluation and care team as scheduled. ?? Recommended the use of hearing protective devices in noisy environments. ?? Re-evaluate hearing in 5 years, sooner if concerns arise or as directed by medical management team. CTOR TALENT MANAGEMENT documented in this encounter Plan of Treatment Upcoming Encounters Date Type Department Care Team (Latest Contact Info) Description 02/11/2024 10:30 AM DIRECTOR TALENT MANAGEMENT Appointment Department of Laboratory Medicine and Pathology, [facility] in [address] [phone] Aníbal Reece APRN, C.N.Ad., M.S.N. [address] [place] [phone] 02/11/2024 12:15 PM DIRECTOR TALENT MANAGEMENT Appointment Department of Radiology, [facility] in [address] [phone] Aníbal Reece APRN, C.NMaggi., M.S.N. [address] [place] [phone] 02/19/2024 8:15 AM DIRECTOR TALENT MANAGEMENT Clinical Communication Virtual Review in [place], [place] [address] [place] [phone] 02/20/2024 8:30 AM DIRECTOR TALENT MANAGEMENT Office Visit Division of Hematology in [address] [phone] Eric Rennre M.D. [address] [place] [phone] 02/20/2024 9:00 AM DIRECTOR TALENT MANAGEMENT Education Division of Hematology in [address] [phone] Aníbal Reece APRN, C.N.P., M.S.N. [address] [place] [phone] documented as of this encounter Procedures Procedure Name Priority Date/Time Associated Diagnosis Comments AUDIO-VESTIBULAR BALANCE EVALUATION Routine 01/14/2024 12:00 AM DIRECTOR TALENT MANAGEMENT Vertigo Benign Paroxysmal Positional Bilateral documented in this encounter Results * Audio-Vestibular Balance evaluation (01/14/2024 12:00 AM DIRECTOR TALENT MANAGEMENT) 01/14/2024 Eric Monzon M.D. ENT ORDERABLES F inal Result documented in this encounter Visit Diagnoses Diagnosis Vertigo- Primary Vertigo Benign Paroxysmal Positional Bilateral Tinnitus Bilateral Loss Hearing Sensorineural Bilateral documented in this encounter Additional Health Concerns Infection Onset Date Last Indicated Resolved Time Protective Environment 09/19/2023 09/19/2023 documented as of this encounter Care Teams Regional Education Coordinator Relationship Specialty Start Date End Date Elsewhere, Pcp PCP - General Internal Medicine 08/21/23 documented as of this encounter
--- OUTSIDE RECORDS SUMMARY | 2024-01-17 19:40 | XMS_ITS ---
Author Organization [facility] Address [address] [place] [address] Care Team Providers Care Plant Biology Professor Name Role Phone Unavailable Unavailable Unavailable Surgery Details Not on file Complications Check Surgery Details section. Procedure Estimated Blood Loss Check Surgery Details section. Procedure Findings Check Surgery Details section. Procedure Specimens Taken Check Surgery Details section.
--- OUTSIDE RECORDS SUMMARY | 2024-01-17 19:40 | XMS_ITS | Referral Summary ---
Author Organization [facility] Address [address] [place] [address] Care Team Providers Care News Cameraman Name Role Phone Elsewhere, Pcp Primary Care Provider Unavailabl e Source Comments Patient records contain information from all sites at [facility]. For routine questions regarding patient records, call [phone] during business hours, M-F 8:00 AM - 5:00 PM Central Time. Record requests for emergency care only can be directed to [phone] at any time.[facility] Encounters Date Type Department Care Team Description 01/14/2024 10:30 AM SPRING COVERER Infusion Department of Oncology in [place], [place] [address] [place] [address] Susu Cameron M.D. 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 Goulson, Adam M, Au.D. Vestibulopathy Right (Primary Dx) 01/14/2024 9:15 AM SPRING COVERER Diagnostic Department of Otorhinolaryngology in [place], [place] [address] [place] [phone] Eric Renner M.D. Betzold, Sarah E, Au.D., C.C.C.-A Vertigo (Primary Dx); Vertigo Benign Paroxysmal Positional Bilateral; Tinnitus Bilateral; Loss Hearing Sensorineural Bilateral 01/11/2024 10:15 AM SPRING COVERER Infusion Department of Oncology in [place], [place] [address] [place] [phone] Eric Renner M.D. 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); Neutropenia Chemotherapy Induced (HCC) Discharge Disposition: Home or Self Care 01/11/2024 9:00 AM SPRING COVERER Office Visit Division of Hematology in [place], [place] [address] [place] [phone] Susu Cameron M.D. 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) (Primary Dx); Neutropenia Chemotherapy Induced (HCC) 12/21/2023 6:50 AM SPRING COVERER - 12/21/2023 11:59 PM SPRING COVERER Hospital Encounter Department of Laboratory Medicine and Pathology, [place], [place] [address] [place] [phone] Villasboas Bisneto, Jarrod, M.D. 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); Neutropenia Chemotherapy Induced (HCC) Discharge Disposition: Home or Self Care 12/21/2023 9:00 AM SPRING COVERER Office Visit Division of Hematology in [address] [phone] Zulma Hickey APRN, C.N.Ad., M.S.N. 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) (Primary Dx); Neutropenia Chemotherapy Induced (HCC) 12/20/2023 7:45 AM SPRING COVERER Clinical Communication Virtual Review in [place], [place] [address] [place] [address] Pre-visit Intake 12/07/2023 Clinical Communication Division of Hematology in [address] [phone] Eric Renner M.D. Results 12/06/2023 Orders Only Division of Hematology in [address] [phone] Gonzales, Ordering Alonzo Asif 12/03/2023 11:30 AM CDT Infusion Department of Infusion Therapy in [address] [phone] Aníbal Reece APRN, C.N.P., M.S.N. 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 11/30/2023 12:15 PM CDT Infusion Department of Oncology in [address] [phone] Eric Renner M.D. 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) (Primary Dx); Neutropenia Chemotherapy Induced (HCC) 11/30/2023 6:55 AM CDT - 11/30/2023 11:59 PM CDT Hospital Encounter Department of Laboratory Medicine and Pathology, [facility], in [place], [place] [address] [place] [address] Eric Renner M.D. 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) Discharge Disposition: Home or Self Care 11/30/2023 9:00 AM CDT Office Visit Division of Hematology in [place], [place] [address] [place] [phone] Aníbal Reece, FAVIOLA, C.N.P., M.S.N. 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) (Primary Dx); Neutropenia Chemotherapy Induced (HCC) 11/28/2023 2:20 AM CDT Ancillary Procedure Department of Otorhinolaryngology 11/28/2023 2:15 PM CDT Office Visit Department of Otorhinolaryngology in [place], [place] [address] [place] [phone] Kendra Garcia M.D. 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 Med Refill 11/21/2023 Clinical Communication Division of Hematology in [address] [phone] Eric Renner M.D. Return call to Dr. Brown 11/15/2023 Clinical Communication Division of Hematology in [place], [place] [address] [place] [phone] Eric Renner M.D. Results 11/14/2023 Orders Only Division of Hematology in [address] [phone] External, Ordering Provider, Alonzo 11/09/2023 Orders Only [facility] [address] [place] [phone] Carmen Hudson, Pharm.D., R.Ph. 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) 11/09/2023 10:15 AM CDT Infusion Department of Oncology in [place], [place] [address] [place] [phone] Eric Renner M.D. 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) (Primary Dx) 11/09/2023 7:00 AM CDT - 11/09/2023 11:59 PM CDT Hospital Encounter Department of Laboratory Medicine and Pathology, [facility] in [address] [phone] Eric Renner M.D. 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) Discharge Disposition: Home or Self Care 11/09/2023 9:00 AM CDT Office Visit Division of Hematology in [address] [phone] Eric Renner M.D. 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) 11/08/2023 1:51 PM CDT - 11/08/2023 11:59 PM CDT Hospital Encounter Department of Radiology, [facility] in [address] [phone] Eric Renner M.D. 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) Discharge Disposition: Home or Self Care 11/07/2023 10:00 AM CDT Clinical Communication Virtual Review in [place], [place] [address] [place] [address] Previsit Preparation (TAMRA DD) 11/02/2023 Clinical Communication Division of Hematology in [address] [phone] Eric Renner M.D. Results 11/01/2023 Orders Only Division of Hematology in [address] [phone] External, Ordering ProviderAlonzo 11/01/2023 Clinical Communication Division of Hematology in [address] [phone] Eric Renner M.D. Results 10/23/2023 Orders Only Division of Hematology in [place], [place] [address] [place] [address] Eric Renner M.D. 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) (Primary Dx) 10/22/2023 Clinical Communication Division of Hematology in [place], [place] [address] [place] [address] Eric Renner M.D. Rst hem lymph chemo 10/19/2023 7:30 AM CDT Infusion Department of Oncology in [place], [place] [address] [place] [address] Eric Renner M.D. 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) (Primary Dx) from Last 3 Months Allergies No known active allergies Medications SUMAtriptan (IMITREX) 100 mg tablet GIVE AT MINIMUM 2 HOURS APART. MAXIMUM DOSE OF 200 MG PER 24 HOURS. 06/04/19 23 Active ipratropium-al buteroL (DUONEB) 0.5-2.5 mg/3 mL nebulizer solution INHALE 1 VIAL BY MOUTH VIA NEBULIZER EVERY 6 HOURS NEEDED FOR SHORTNESS OF BREATH 05/10/19 23 Active gabapentin (NEURONTIN) 600 mg tablet Take 600 mg by mouth 3 (three) times a day. 05/12/19 23 Active budesonide-for moteroL (Symbicort) 160-4.5 mcg/actuation inhaler Inhale 2 puffs 2 (two) times a day. 10/06/19 22 Active atorvastatin (Lipitor) 80 mg tablet Take 80 mg by mouth daily. 06/04/19 23 Active Ventolin HFA 90 mcg/actuation inhaler INHALE 1 TO 2 PUFFS BY MOUTH EVERY 4 HOURS NEEDED FOR WHEEZING 1ST CHOICE 06/06/19 23 Active nebulizer accessories kit Nebulizer, disposable neb kit x 4, reuseable neb kit x 1, mask x 1, filters x 1. Frequency of use: every 6 hours as needed; Medication: Albuterol or Duoneb. Length of need: 99 months 01/12/20 22 Active blood sugar diagnostic strips (Blood Glucose Test Strips) daily. 09/02/19 15 Active lancets 30 gauge misc Use once daily as directed. Pharmacy dispense brand based on insurance. 04/26/19 14 Active buPROPion (Wellbutrin SR) 100 mg 12 hr tablet Take 1 tablet by mouth daily. Active hydrOXYzine (Atarax) 50 mg tablet Take 50-100 mg by mouth at bedtime as needed for anxiety (sleep). 08/12/19 24 Active QUEtiapine (SEROqueL) 200 mg tablet Take 200 mg by mouth at bedtime as needed. Dosen't take regularly due to drowsiness 07/12/19 24 Active metFORMIN (Glucophage) 500 mg tablet Take 1,000 mg by mouth 2 (two) times a day with meals. 12/15/19 23 Active acetaminophen (TylenoL) 500 mg tablet Take 2 tablets (1,000 mg total) by mouth every 6 (six) hours as needed for pain. Please do not take more than 4,000 mg in 24 hours. 08/31/19 24 Active cyclobenzaprin e (FlexeriL) 10 mg tabletIndicati ons:Sciatica Left Take 1 tablet (10 mg total) by mouth 3 (three) times a day as needed for muscle spasms for up to 5 days. 15 tablet 09/20/19 24 Active prochlorperazi ne (Compazine) 10 mg tabletIndicati ons: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) Take 1 tablet (10 mg total) by mouth every 6 (six) hours as needed for nausea or vomiting. 30 tablet 3 4 3:14 PM CDT 09/27/19 24 025 Active ondansetron (Zofran) 8 mg tabletIndicati ons: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) Take 1 tablet (8 mg total) by mouth every 8 (eight) hours as needed for nausea or vomiting (unrelieved by prochlorperazine). 30 tablet 3 4 3:14 PM CDT 09/27/19 24 025 Active lidocaine viscous (Xylocaine) 2 % mucosal solution MIX 5 ML OF LIDOCAINE, ANTACID SUSPENSION, AND DIPHENHYDRAMINE LIQUID AND TAKE BY MOUTH FOUR TIMES A DAY AFTER MEALS AND AT BEDTIME. HOLD IN MOUTH FOR 1 MINUTE. DO NOT EAT OR DRINK FOR 15 TO 30 MINUTES AFTER USE 100 mL 2 4 1:15 PM CDT 10/17/19 Active omeprazole (PriLOSEC) [address] capsule TAKE 1 CAPSULE BY MOUTH DAILY BEFORE MORNING MEAL. 60 capsule 11/27/19 Active cyclobenzaprin e (FlexeriL) 10 mg tablet Take 10 mg by mouth as needed. 11/19/19 Active ibuprofen 800 mg tablet Take 800 mg by mouth 2 (two) times a day. Sometimes 3 time a day 11/14/19 Active nicotine (Nicoderm CQ) 21 mg/[address] 1 patch on the skin daily. 10/24/19 Active oxyCODONE (Roxicodone) 5 mg immediate release tablet 5 mg 3 (three) times a day. 11/14/19 24 Active tirzepatide (Mounjaro) 10 mg/0.5 mL pen injector injection Inject 10 mg under the skin once a week. 10/24/19 Active SUMATRIPTAN SUCCINATE ORAL Take 100 mg by mouth as needed. 11/21/19 Active benzonatate (Tessalon) 200 mg capsule Take 200 mg by mouth as needed. 10/04/19 Active morphine (MS Contin) 15 mg ER tablet Take 1 tablet by mouth 2 (two) times a day. 11/23/19 Active nystatin (Mycostatin) 100,000 unit/mL suspension Take 500,000 Units by mouth 4 (four) times a day. 10/04/19 24 Active loratadine (Claritin) 10 mg tablet Take 1 tablet (10 mg total) by mouth daily for 10 days. Start taking on day of chemotherapy for prevention of pegfilgrastim related bone pain; repeat with each cycle of chemotherapy. 2 11/30/19 24 Active Mounjaro 5 mg/0.5 mL pen injector injection 08/21/19 24 024 Discontinu ed(Therapy completed) atorvastatin (Lipitor) 80 mg tablet Take 80 mg by mouth daily. 11/21/19 24 024 Discontinu ed(Duplica te order) cefpodoxime (Vantin) 200 mg tablet Take 200 mg by mouth 2 (two) times a day with meals. 11/23/19 24 024 Discontinu ed(Therapy completed) predniSONE (Deltasone) 50 mg tabletIndicati ons: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) Take 2 tablets (100 mg total) by mouth daily for 5 doses. Days 1 through 5 of each cycle. (Prior to chemotherapy if a chemo day) 10 tablet 2 4 7:39 AM SPRING COVERER 11/30/19 24 024 Hospital, Clinic, or Other Facility Administered Medication [...] 1.5 81.9 Started: 02/12/1982 Smokeless Tobacco: Never Tobacco Cessation:Ready to Q uit: Not Asked; Counseling Given: Not Answered Alcohol Use Standard Drinks/Week Comments Not Currently 0 (1 standard drink = 0.6 oz pur e alcohol) rarely [employer] Utilities Answer Date Recorded In the past 12 months has [employer], gas, oil, or water [employer] threatened to shut off services in your [...] your living situation today? I have a [facility] hospital place to live 08/15/2023 Comments No Sex and Gender Information Value Date Recorded Sex Assigned at Female 08/15/2023 7:51 AM CDT Legal Sex Female 8:36 AM CDT Gender Identity Female 08/15/2023 7:51 AM CDT Sexual Orientation Straight 08/15/2023 7: 51 AM CDT Last Filed Vital Signs Vital Sign Reading Time Taken Comments Blood Pressure 105/70 01/11/2024 8:57 AM SPRING COVERER Pulse 101 01/11/2024 8:57 AM SPRING COVERER Temperature 36.7 C (98.1 F) 01/11/2024 8:57 AM SPRING COVERER Respiratory Rate 16 12/24/2023 9:05 AM SPRING COVERER Oxygen Saturation 94% 01/11/2024 8:57 AM SPRING COVERER Inhaled Oxygen Concentration - - Weight 76.9 kg (169 lb 10.3 oz) 01/11/2024 8:57 AM SPRING COVERER Height 166 cm (5' 5.35) 01/11/2024 8:57 AM SPRING COVERER Body Mass Index 27.93 01/11/2024 8:57 AM SPRING COVERER Plan of Treatment Upcoming Encounters Date Type Department Care Team (Latest Contact Info) Description 02/11/2024 10:30 AM SPRING COVERER Appointment Department of Laboratory Medicine and Pathology, [facility] in [address] [phone] Aníbal Reece APRN, C.N.Ad., M.S.N. [address] [place] [phone] 02/11/2024 12:15 PM SPRING COVERER Appointment Department of Radiology, [facility] in [address] [phone] Aníbal Reece APRN, C.NMaggi., M.S.N. [address] [place] [phone] 02/19/2024 8:15 AM SPRING COVERER Clinical Communication Virtual Review in [address] [phone] 02/20/2024 8:30 AM SPRING COVERER Office Visit Division of Hematology in [address] [phone] Eric Renner M.D. [address] [place] [phone] 02/20/2024 9:00 AM SPRING COVERER Education Division of Hematology in [address] [phone] Aníbal Reece APRN, C.N.P., M.S.N. [address] [place] [phone] Procedures Procedure Name Priority Date/Time Associated Diagnosis Comments AUDIO-VESTIBULAR BALANCE EVALUATION Routine 01/14/2024 12:00 AM SPRING COVERER Vertigo Benign Paroxysmal Positional Bilateral COMPREHENSIVE METABOLIC PANEL, S/P Routine 01/11/2024 6:58 AM SPRING COVERER 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) Neutropenia Chemotherapy Induced (HCC) CBC WITH DIFFERENTIAL, B Routine 024 6:58 AM SPRING COVERER 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) Neutropenia Chemotherapy Induced (HCC) COMPREHENSIVE METABOLIC PANEL, S/P Routine 12/21/2023 7:00 AM SPRING COVERER 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) Neutropenia Chemotherapy Induced (HCC) CBC WITH DIFFERENTIAL, B Routine 024 7:00 AM SPRING COVERER 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) Neutropenia Chemotherapy Induced (HCC) CBC WITH DIFFERENTIAL, B Routine 024 1:06 PM CDT COMPREHENSIVE METABOLIC PANEL, S/P Routine 11/30/2023 7:11 AM CDT 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) CBC WITH DIFFERENTIAL, B Routine 024 7:11 AM CDT 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) OTORHINOLARYNGOLOGY IMAGE EXAM Routine 11/28/2023 2:[address] BODY Routine 11/21/2023 9:35 AM CDT OUTSIDE DX CHEST Routine 11/20/2023 7:25 PM CDT CBC WITH DIFFERENTIAL, B Routine 024 10:00 [...] DIFFERENTIAL, B Routine 024 10:15 AM CDT from Last 3 Months Results * Audio-Vestibular Balance evaluation (01/14/2024 12:00 AM SPRING COVERER) 01/14/2024 us Eric Monzon M.D. ENT ORDERABLES F inal Result * (ABNORMAL) CBC with Differential, Blood (01/11/2024 6:58 AM SPRING COVERER) Only the most recent of7 resultswithin the time period is included. Hemoglobin 11.4(L) 11.6 - 15.0 g/dL 01/11/2024 7:25 AM SPRING COVERER DTL Hematocrit 35.3(L) 35.5 - 44.9 % 01/11/2024 7:25 AM SPRING COVERER DTL Erythrocytes 3.34(L) 3.92 - 5.13 x10(12)/L 01/11/2024 7:25 AM SPRING COVERER DTL MCV 105.7(H) 78.2 - 97.9 fL 01/11/2024 7:25 AM SPRING COVERER DTL RBC Distrib Width 18.7(H) 12.2 - 16.1 % 01/11/2024 7:25 AM SPRING COVERER DTL Platelet Count 204 157 - 371 x10(9)/L 01/11/2024 7:25 AM SPRING COVERER DTL Leukocytes 7.1 3.4 - 9.6 x10(9)/L 01/11/2024 7:25 AM SPRING COVERER DTL Neutrophils 5.65 1.56 - 6.45 x10(9)/L 01/11/2024 7:24 AM SPRING COVERER DHPM Lymphocytes 0.85(L) 0.95 - 3.07 x10(9)/L 01/11/2024 7:25 AM SPRING COVERER DTL Monocytes 0.58 0.26 - 0.81 x10(9)/L 01/11/2024 7:25 AM SPRING COVERER DTL Eosinophils <0.03 0.03 - 0.48 x10(9)/L 01/11/2024 7:25 AM SPRING COVERER DTL Basophils 0.03 0.01 - 0.08 x10(9)/L 01/11/2024 7:25 AM SPRING COVERER DTL Blood (Blood, Venous) 01/11/2024 6:58 AM SPRING COVERER 01/11/2024 7:17 AM SPRING COVERER Eric Monzon M.D. LAB BLOOD ADD-ON Final Result [facility] [address] [place] [address], [facility] DTL [facility] [address] [place] [address] [facility] [address] [place] [address] * (ABNORMAL) Comprehensive Metabolic Panel (01/11/2024 6:58 AM SPRING COVERER) Only the most recent of4 resultswithin the time period is included. Potassium, S 4.5 3.6 - 5.2 mmol/L 01/11/2024 8:11 AM SPRING COVERER DTL Sodium, S 145 135 - 145 mmol/L 01/11/2024 8:11 AM SPRING COVERER DTL Chloride, S 111(H) 98 - 107 mmol/L 01/11/2024 8:11 AM SPRING COVERER DTL Bicarbonate, S 24 22 - 29 mmol/L 01/11/2024 8:11 AM SPRING COVERER DTL Anion Gap 10 7 - 15 01/11/2024 8:11 AM SPRING COVERER DTL BUN (Blood Urea Nitrogen), S 12 6 - 21 mg/dL 01/11/2024 8:11 AM SPRING COVERER DTL Creatinine 0.64 0.59 - 1.04 mg/dL 01/11/2024 8:11 AM SPRING COVERER DTL Estimated GFR (eGFR) >90 >=60 mL/min/BS A 01/11/2024 8:11 AM SPRING COVERER DTL Comment: Estimated GFR calculated using the 2020 CKD_EPI creatinine equation. Calcium, Total, S 9.3 8.6 - 10.0 mg/dL 01/11/2024 8:11 AM SPRING COVERER DTL Glucose, S 74 70 - 140 mg/dL 01/11/2024 8:11 AM SPRING COVERER DTL Protein, Total, S 6.1(L) 6.3 - 7.9 g/dL 01/11/2024 8:11 AM SPRING COVERER DTL Albumin, S 4.1 3.5 - 5.0 g/dL 01/11/2024 8:11 AM SPRING COVERER DTL Aspartate Aminotransferase (AST), S 16 8 - 43 U/L 01/11/2024 8:11 AM SPRING COVERER DTL Alkaline Phosphatase, S 76 35 - 104 U/L 01/11/2024 8:11 AM SPRING COVERER DTL Alanine Aminotransferase (ALT), S 20 7 - 45 U/L 01/11/2024 8:11 AM SPRING COVERER DTL Bilirubin, Total, S 0.3 0.0 - 1.2 mg/dL 01/11/2024 8:11 AM SPRING COVERER DTL Blood (Blood, Venous) 01/11/2024 6:58 AM SPRING COVERER 01/11/2024 7:37 AM SPRING COVERER us Eric Monzon M.D. LAB [place] [address], [place] [address] * ENT Procedure-Otorhinolaryngology Image Exam (11/28/2023 2:20 AM CDT) Narrative IIMS - 11/28/2023 2:32 PM CDT This order has been created and auto-finalized to support the import of images acquired without order. The clinical documentation to support these images can be found on the encounter that produced images. us Provider Not In System IMG NON RAD IMAGING PROCE DURES Final Result Performing Organization Address City/[facility]/ZIP Co de Phone Number IIMS NA * CT chest abdomen pelv w con-Outside CT Body (11/21/2023 9:35 AM CDT) Narrative IIMS - 11/21/2023 2:37 PM CDT This order has been created and auto-finalized to support the import of outside images. If available, original interpretation can be found on the Media Tab in Chart Review, in Document Viewer, as an image in QREADS or as an Addendum. If a re-interpretation or overread is required please follow defined workflow. us Provider Not In System IMG CT PROCEDURES Final R esult Performing Organization Address City/[facility] Co de Phone Number IIMS NA * XR chest 2V-Outside Chest Xray (11/20/2023 7:25 PM CDT) Narrative IIAR - 11/21/2023 2:10 PM CDT This order has been created and auto-finalized to support the import of outside images. If available, original interpretation can be found on the Media Tab in Chart Review, in Document Viewer, as an image in QREADS or as an Addendum. If a re-interpretation or overread is required please follow defined workflow. us Provider Not In System IM DIAGNOSTIC IMAGING IN OCEDURES Final Result Performing Organization Address [facility] Co de Phone Number IIMS NA * PET CT Whole Body FDG (11/08/2023 3:56 PM CDT) Anatomical Region Laterality Modality Whole body, Nuclear Medicine PET RST LOS, PET ARZ LOS, Nuclear Medicine PET FLA LOS, Nuclear Medicine N/A Positron Emission Tomogr aphy (PET), Positron Emission Tomography (PET) Impressions 11/08/2023 5:36 PM CDT Positive response to interval chemotherapy. Deauville response score 2. Narrative 11/08/2023 5:36 PM CDT EXAM: PET CT WHOLE BODY FDG Serum glucose at time of F-18 FDG injection was 106 mg/dL. Patient followed standard dietary/fasting requirements for this exam. RADIOPHARMACEUTICAL/MEDS: Route: intravenous fludeoxyglucose F 18 injection ALF (FDG F-18),9.88 millicurie TECHNIQUE: F-18 FDG PET/CT scan was performed from the vertex through the toes with low dose, non-contrast, free-breathing CT images for attenuation correction and anatomic localization (AC/AL), with imaging beginning at approximately 60 minutes after radiotracer injection. COMPARISON: 09/14/2023 PET/CT. INDICATION: Diffuse large B-cell lymphoma, status post therapy. Restaging. Subsequent treatment strategy. FINDINGS: Compared with 09/14/2023, [...] RADIOPHARMACEUTICAL/MEDS: Route: intravenous fludeoxyglucose F 18 injection ALF (FDG F-18),9.88 millicurie TECHNIQUE: F-18 FDG PET/CT [...] uptake along the upper esophagus (axial fused [id number]). Mild inflammatory uptake along the right tibia [...] interval chemotherapy. Deauville response score 2. Eric TORIBIO NM PROCEDURES Final Result from Last 3 Months Additional Health Concerns Infection Onset Date Last Indicated Protective Environment 09/19/2023 4 Insurance [facility] Care Teams News Cameraman Relationship Specialty Start Date End Date Elsewhere, Pcp PCP - General Internal Medicine 08/21/23
--- OUTSIDE RECORDS SUMMARY | 2024-01-17 19:40 | XMS_ITS | Clinical Summary ---
Author Organization [facility] Address [address] [place] [address] Care Team Providers Care [employer] Supervisor Name Role Phone Elsewhere, Pcp Primary Care Provider Unavailabl e Source Comments Patient records contain information from all sites at [facility]. For routine questions regarding patient records, call [phone] during business hours, M-F 8:00 AM - 5:00 PM Central Time. Record requests for emergency care only can be directed to [phone] at any time.[facility] Allergies No known active allergies Medications SUMAtriptan [...] mg 3 (three) times a day. 11/14/19 Active tirzepatide (Mounjaro) 10 mg/0.5 mL pen [...] 80 mg by mouth daily. 11/21/19 24 Discontinu ed(Duplica te order) cefpodoxime (Vantin) 200 mg tablet Take 200 mg by mouth 2 (two) times a day with meals. 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 Days 1 through 5 of each cycle. (Prior to chemotherapy if a chemo day) 10 tablet 2 7:39 AM CONTINUUM OF CARE MANAGER 11/30/19 Hospital, Clinic, or Other Facility Administered Medication [...] Date Type Department Care Team Description 01/14/2024 1:00 PM CONTINUUM OF CARE MANAGER Diagnostic Department of Otorhinolaryngology in [place], [place] [address] [place] [address] Eric Renner M.D. Goulson, Adam M, Au.D. Vestibulopathy Right (Primary Dx) 01/14/2024 10:30 AM CONTINUUM OF CARE MANAGER Infusion Department of Oncology in [place], [place] [address] [place] [address] Susu Cameron M.D. 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 Betzold, Sarah E, Au.D., C.CJacquelinCJacquelin-A Vertigo (Primary Dx); Vertigo Benign Paroxysmal Positional Bilateral; Tinnitus Bilateral; Loss Hearing Sensorineural Bilateral 01/11/2024 10:15 AM CONTINUUM OF CARE MANAGER Infusion Department of Oncology in [place], [place] [address] [place] [phone] Eric Renner M.D. 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 Results 12/06/2023 Orders Only Division of Hematology in [address] [phone] External, Ordering ProviderAlonzo 12/03/2023 11:30 AM CDT Infusion Department of Infusion Therapy in [address] [phone] Aníbal Reece APRN, C.N.P., M.S.N. 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 11/28/2023 2:15 PM CDT Office Visit Department of Otorhinolaryngology in [place], [place] [address] [place] [address] Kendra Garcia M.D. Polyp Of Vocal Cord And Larynx (Primary Dx) 11/28/2023 2:20 AM CDT Ancillary Procedure Department of Otorhinolaryngology 11/27/2023 Refill Department of Otorhinolaryngology in [place], [place] [address] [place] [address] Kendra Garcia M.D. Med Refill 11/21/2023 Clinical Communication Division of Hematology in [place], [place] [address] [place] [address] Eric Renner M.D. Return call to Dr. Brown 11/15/2023 Clinical Communication Division of Hematology in [place], [place] [address] [place] [address] Eric Renner M.D. Results 11/14/2023 Orders Only Division of Hematology in [address] [phone] External, Ordering ProviderAlonzo 11/09/2023 10:15 AM CDT Infusion Department of Oncology in [address] [address] Eric Renner M.D. 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 Results 11/01/2023 Orders Only Division of Hematology in [place], [place] [address] [place] [address] External, Ordering Alonzo Asif 11/01/2023 Clinical Communication Division of Hematology in [place], [place] [address] [place] [address] Eric Renner M.D. Results 10/23/2023 Orders Only Division of Hematology in [place], [place] [address] [place] [address] Eric Renner M.D. 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 Rst hem lymph chemo 10/19/2023 7:30 AM CDT Infusion Department of Oncology in [place], [place] [address] [place] [address] Eric Renner M.D. 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) (Primary Dx) from Last 3 Months Family History Medical [...] = 0.6 oz pur e alcohol) rarely [facility] Utilities Answer Date Recorded In the past 12 months has th e [employer], gas, oil, or water [employer] threatened to shut off services in your [...] [facility] 08/15/2023 Comments No Sex and Gender Information Value Date Recorded Sex Assigned at Female 08/15/2023 7:51 AM CDT Legal Sex Female 8:36 AM CDT Gender Identity Female 08/15/2023 7:51 AM CDT Sexual Orientation Straight 08/15/2023 7 :51 AM CDT Last Filed Vital Signs Vital Sign Reading Time Taken Comments Blood Pressure 105/70 01/11/2024 8:57 AM CONTINUUM OF CARE MANAGER Pulse 101 01/11/2024 8:57 AM CONTINUUM OF CARE MANAGER Temperature 36.7 C (98.1 F) 01/11/2024 8:57 AM CONTINUUM OF CARE MANAGER Respiratory Rate 16 12/24/2023 9:05 AM CONTINUUM OF CARE MANAGER Oxygen Saturation 94% 01/11/2024 8:57 AM CONTINUUM OF CARE MANAGER Inhaled Oxygen Concentration - - Weight 76.9 kg (169 lb 10.3 oz) 01/11/2024 8:57 AM CONTINUUM OF CARE MANAGER Height 166 cm (5' 5.35) 01/11/2024 8:57 AM CONTINUUM OF CARE MANAGER Body Mass Index 27.93 01/11/2024 8:57 AM CONTINUUM OF CARE MANAGER Plan of Treatment Upcoming Encounters Date Type Department Care Team (Latest Contact Info) Description 02/11/2024 10:30 AM CONTINUUM OF CARE MANAGER Appointment Department of Laboratory Medicine and Pathology, [facility] in [place], [place] [address] [place] [phone] Aníbal Reece APRN, C.N.P., M.S.N. [address] [place] [phone] 02/11/2024 12:15 PM CONTINUUM OF CARE MANAGER Appointment Department of Radiology, [facility], in [place], [place] [address] [place] [phone] Aníbal Reece APRN, C.N.P., M.S.N. [address] [place] [phone] 02/19/2024 8:15 AM CONTINUUM OF CARE MANAGER Clinical Communication Virtual Review in [place], [place] 200 [place] [address] 02/20/2024 8:30 AM CONTINUUM OF CARE MANAGER Office Visit Division of Hematology in [place], [place] [address] [place] [phone] Eric Renner M.D. [address] [place] [phone] 02/20/2024 9:00 AM CONTINUUM OF CARE MANAGER Education Division of Hematology in [place], [place] [address] [place] [phone] Aníbal Reece, FAVIOLA, C.N.P., M.S.N. [address] [place] [phone] Health Maintenance Due Date Last Done Comments CT Colonography 1969 Cologuard 1969 FIT 1969 Generalized Anxiety (SLAVA-7) 1969 Lung Cancer Screening 08/05/2020 08/06/2019 Mammogram 08/03/2021 08/03/2020, 07/14, 07/12/2018, Additional history exists Depression Screening (Annual PHQ-2) 02/12/2023 COVID-19 Vaccine ( season) 2023 11/08/2022, 08/24/2020, 08/03/2020 Influenza Vaccine (#1) 2023 , 01/08/2022, 11/28/2019, Additional history exists Controlled Substance Agreement 11/30/2023 Controlled Substance Monitoring (PHQ-9) 11/30/2023 Controlled Substance Monitoring 11/30/2023 Opioid Risk Tool (ORT) 11/30/2023 PEG assessment for Opioid therapy 11/30/2023 Lipid (Cholesterol) Screening 09/30/2026 09/30/2021, 06/24/2020, 01/22/2019, Additional history exists Fasting Glucose for Diabetes Screening 01/10/2027 01/11/2024, 12/21/2023, 11/30/2023, Additional history exists Colonoscopy 02/06/2027 02/06/2017 Colorectal [...] patient's age to complete this topic IPV Vaccines Aged Out No longer eligi ble based on patient's age to complete this topic Procedures Procedure Name Priority Date/Time Associated Diagnosis Comments AUDIO-VESTIBULAR BALANCE EVALUATION Routine 01/14/2024 12:00 AM CONTINUUM OF CARE MANAGER Vertigo Benign Paroxysmal Positional Bilateral COMPREHENSIVE METABOLIC PANEL, S/P Routine 01/11/2024 6:58 AM CONTINUUM OF CARE MANAGER 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) Neutropenia Chemotherapy Induced (HCC) CBC WITH DIFFERENTIAL, B Routine 024 6:58 AM CONTINUUM OF CARE MANAGER 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 ENT ORDERABLES F inal Result * (ABNORMAL) CBC with Differential, Blood (01/11/2024 6:58 AM CONTINUUM OF CARE MANAGER) Only the most recent of7 resultswithin the time period is included. Hemoglobin 11.4(L) 11.6 - 15.0 g/dL 01/11/2024 7:25 AM CONTINUUM OF CARE MANAGER DTL Hematocrit 35.3(L) 35.5 - 44.9 % 01/11/2024 7:25 AM CONTINUUM OF CARE MANAGER DTL Erythrocytes 3.34(L) 3.92 - 5.13 x10(12)/L 01/11/2024 7:25 AM CONTINUUM OF CARE MANAGER DTL MCV 105.7(H) 78.2 - 97.9 fL 01/11/2024 7:25 AM CONTINUUM OF CARE MANAGER DTL RBC Distrib Width 18.7(H) 12.2 - 16.1 % 01/11/2024 7:25 AM CONTINUUM OF CARE MANAGER DTL Platelet Count 204 157 - 371 x10(9)/L 01/11/2024 7:25 AM CONTINUUM OF CARE MANAGER DTL Leukocytes 7.1 3.4 - 9.6 x10(9)/L 01/11/2024 7:25 AM CONTINUUM OF CARE MANAGER DTL Neutrophils 5.65 1.56 - 6.45 x10(9)/L 01/11/2024 7:24 AM CONTINUUM OF CARE MANAGER DHPM Lymphocytes 0.85(L) 0.95 - 3.07 x10(9)/L 01/11/2024 7:25 AM CONTINUUM OF CARE MANAGER DTL Monocytes 0.58 0.26 - 0.81 x10(9)/L 01/11/2024 7:25 AM CONTINUUM OF CARE MANAGER DTL Eosinophils <0.03 0.03 - 0.48 x10(9)/L 01/11/2024 7:25 AM CONTINUUM OF CARE MANAGER DTL Basophils 0.03 0.01 - 0.08 x10(9)/L 01/11/2024 7:25 AM CONTINUUM OF CARE MANAGER DTL Blood (Blood, Venous) 01/11/2024 6:58 AM CONTINUUM OF CARE MANAGER 01/11/2024 7:17 AM CONTINUUM OF CARE MANAGER Eric Monzon M.D. LAB BLOOD ADD-ON Final Result [facility] [address] [place] [address], [facility] DTL [facility] [address] [place] [address] DHPM [facility] [address] [place] [address] * (ABNORMAL) Comprehensive Metabolic Panel (01/11/2024 6:58 AM CONTINUUM OF CARE MANAGER) Only the most recent of4 resultswithin the time period is included. [facility] Potassium, S 4.5 3.6 - 5.2 mmol/L 01/11/2024 8:11 AM CONTINUUM OF CARE MANAGER DTL Sodium, S 145 135 - 145 mmol/L 01/11/2024 8:11 AM CONTINUUM OF CARE MANAGER DTL Chloride, S 111(H) 98 - 107 mmol/L 01/11/2024 8:11 AM CONTINUUM OF CARE MANAGER DTL Bicarbonate, S 24 22 - 29 mmol/L 01/11/2024 8:11 AM CONTINUUM OF CARE MANAGER DTL Anion Gap 10 7 - 15 01/11/2024 8:11 AM CONTINUUM OF CARE MANAGER DTL BUN (Blood Urea Nitrogen), S 12 6 - 21 mg/dL 01/11/2024 8:11 AM CONTINUUM OF CARE MANAGER DTL Creatinine 0.64 0.59 - 1.04 mg/dL 01/11/2024 8:11 AM CONTINUUM OF CARE MANAGER DTL Estimated GFR (eGFR) >90 >=60 mL/min/BS A 01/11/2024 8:11 AM CONTINUUM OF CARE MANAGER DTL Comment: Estimated GFR calculated using the 2020 CKD_EPI creatinine equation. Calcium, Total, S 9.3 8.6 - 10.0 mg/dL 01/11/2024 8:11 AM CONTINUUM OF CARE MANAGER DTL Glucose, S 74 70 - 140 mg/dL 01/11/2024 8:11 AM CONTINUUM OF CARE MANAGER DTL Protein, Total, S 6.1(L) 6.3 - 7.9 g/dL 01/11/2024 8:11 AM CONTINUUM OF CARE MANAGER DTL Albumin, S 4.1 3.5 - 5.0 g/dL 01/11/2024 8:11 AM CONTINUUM OF CARE MANAGER DTL Aspartate Aminotransferase (AST), S 16 8 - 43 U/L 01/11/2024 8:11 AM CONTINUUM OF CARE MANAGER DTL Alkaline Phosphatase, S 76 35 - 104 U/L 01/11/2024 8:11 AM CONTINUUM OF CARE MANAGER DTL Alanine Aminotransferase (ALT), S 20 7 - 45 U/L 01/11/2024 8:11 AM CONTINUUM OF CARE MANAGER DTL Bilirubin, Total, S 0.3 0.0 - 1.2 mg/dL 01/11/2024 8:11 AM CONTINUUM OF CARE MANAGER DTL Blood (Blood, Venous) 01/11/2024 6:58 AM CONTINUUM OF CARE MANAGER 01/11/2024 7:37 AM CONTINUUM OF CARE MANAGER us Eric Monzon M.D. LAB BLOOD ADD-ON Final Result [facility] [address] [place] [address], [place] DTL [facility] [address] [place] [address] * ENT Procedure-Otorhinolaryngology Image Exam (11/28/2023 2:20 AM CDT) Narrative IIWA - 11/28/2023 2:32 PM CDT This order has been created and auto-finalized to support the import of images acquired without order. The clinical documentation to support these images can be found on the encounter that produced images. us Provider Not In System IMG NON RAD IMAGING PROCE DURES Final Result Performing Organization Address [facility] de Phone Number IIMS NA * CT chest abdomen pelv w con-Outside CT Body (11/21/2023 9:35 AM CDT) Narrative IIWA - 11/21/2023 2:37 PM CDT This order [...] PROCEDURES Final R esult Performing Organization Address [facility] de Phone Number IIMS NA * XR chest 2V-Outside Chest Xray (11/20/2023 7:25 PM CDT) Narrative IIMS - 11/21/2023 2:10 PM CDT This order has been created and auto-finalized to support the import of outside images. If available, original interpretation can be found on the Media Tab in Chart Review, in Document Viewer, as an image in QREADS or as an Addendum. If a re-interpretation or overread is required please follow defined workflow. us Provider Not In System IMG DIAGNOSTIC IMAGING MA OCEDURES Final Result Performing Organization Address [facility] de Phone Number IIMS NA * PET [...] RADIOPHARMACEUTICAL/MEDS: Route: intravenous fludeoxyglucose F 18 injection ASSISTED (FDG F-18),9.88 millicurie TECHNIQUE: F-18 FDG PET/CT [...] RADIOPHARMACEUTICAL/MEDS: Route: intravenous fludeoxyglucose F 18 injection ASSISTED (FDG F-18),9.88 millicurie TECHNIQUE: F-18 FDG PET/CT [...] score 2. Eric Monzon M.D. IMG NM PROCEDURES Final Result from Last 3 Months Additional Health Concerns Infection Onset Date Last Indicated Protective Environment 09/19/2023 [facility] Care Teams [employer] Supervisor Relationship Specialty Start Date End Date Elsewhere, Pcp PCP - General Internal Medicine 08/21/23
--- OUTSIDE RECORDS SUMMARY | 2024-01-17 19:40 | XMS_ITS | Encounter Summary ---
Author Organization [facility] Address [address] [place] [address] Care Team Providers Care Team Coordinator Name Role Phone Jessica Rivas MD Primary Care Provider Encounter Details Date Type Department Care Team (Latest Contact Info) Description 02/25/1998 Orders Only Dixon Cox MD [address] [place] [address] Social History Tobacco Use Types Packs/Day Years [...] R/O COVID19 04/06/2021 04/06/2021 04/07/2021 5:46 AM APARTMENT COMMUNITY ASSISTANT MANAGER documented as of this encounter Care Teams Team Coordinator Relationship Specialty Start Date End Date Jessica Rivas MD [address] [place] [address] PCP - General Family Practice 05/10/11 documented as of this encounter
--- OUTSIDE RECORDS SUMMARY | 2024-01-17 19:40 | XMS_ITS | Encounter Summary ---
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 200 [place] [address] Phone: tel: fax: [facility] Referral ID Status Reason Start Date Expiration Date V isits Requested Visits Authorized [id number] Authorized 09/19/2023 07/08/2024 7 99 Encounter Details Date Type Department Care Team (Late st Contact Info) Description 01/11/2024 10:15 AM ADMINISTRATOR OF HOME HEALTH Infusion Department of Oncology in [place], [place] [address] [place] [phone] Eric Renner M.D. 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) Social History Tobacco Use Types Packs/Day Years Used Date Smoking Tobacco: Every Day Cigarettes 1.5 81.9 Started: 02/12/1982 Smokeless Tobacco: Never Alcohol Use Standard Drinks/Week Comments Not Currently 0 (1 standard drink = 0.6 oz pur e alcohol) rarely [facility] Utilities Answer Date Recorded In the [...] [facility] 08/15/2023 Comments No [...] (Latest Contact Info) Description 02/11/2024 10:30 AM ADMINISTRATOR OF HOME HEALTH Appointment Department of Laboratory Medicine and Pathology, [facility] in [address] [phone] Aníbal Reece APRN, C.NMaggi., M.S.N. [address] [place] [phone] 02/11/2024 12:15 PM ADMINISTRATOR OF HOME HEALTH Appointment Department of Radiology, [facility] in [address] [phone] Aníbal Reece APRN, C.NMaggi., M.S.N. [address] [place] [phone] 02/19/2024 8:15 AM ADMINISTRATOR OF HOME HEALTH Clinical Communication Virtual Review in [place], [place] 200 [place] [address] 02/20/2024 8:30 AM ADMINISTRATOR OF HOME HEALTH Office Visit Division of Hematology in [address] [phone] Eric Renner M.D. [address] [place] [phone] 02/20/2024 9:00 AM ADMINISTRATOR OF HOME HEALTH Education Division of Hematology in [address] [phone] Aníbal Reece APRN, C.N.P., M.S.N. 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) documented in this encounter Administered Medications Inactive Administered Medications - up to 3 most recent administrations Medication Order MAR Action Action Date Dose Rate Site acetaminophen tablet 650 mg (TylenoL) 650 mg, oral, Once, On Sun01/11/24 at 1005, For 1 dose, Administer 30 minutes prior to riTUXimab.Indications:Diff use Large B Cell Lymphoma Lymph Nodes Of Multiple Sites (HCC),Neutropenia Chemotherapy Induced (HCC) Given 01/11/2024 10:14 AM ADMINISTRATOR OF HOME HEALTH 650 mg cycloPHOSphamide 1,500 mg in NaCl 0.9% 350 mL IVPB (Cytoxan) 1,500 mg (rounded from 1,462.5 mg = 750 mg/m2 1.95 m2 Treatment Plan BSA from Measured weight), intravenous, at 700 mL/hr, Administer over 30 Minutes, Once, On Sun01/11/24 at 1300, For 1 doseIndications: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),Neutropenia Chemotherapy Induced (HCC) New Bag 01/11/2024 1:24 PM ADMINISTRATOR OF HOME HEALTH 1,500 mg 700 mL/hr diphenhydrAMINE injection 25 mg (BenadryL) 25 mg, intravenous, Once, On Sun01/11/24 at 1005, For 1 dose, Administer 30 minutes prior to riTUXimab.Indications:Diff use Large B Cell Lymphoma Lymph Nodes Of Multiple Sites (HCC),Neutropenia Chemotherapy Induced (HCC) Given 01/11/2024 10:28 AM ADMINISTRATOR OF HOME HEALTH 25 mg DOXOrubicin injection 100 mg (Adriamycin) 100 mg (rounded from 97.5 mg = 50 mg/m2 1.95 m2 Treatment Plan BSA from Measured weight), intravenous, Administer over 10 Minutes, Once, On Sun01/11/24 at 1230, For 1 dose, Administer IV push through a free flowing IV of 0.9% NaCL over approximately 10 minutes via Y-site. 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),Neutropenia Chemotherapy Induced (HCC) Given 01/11/2024 10:32 AM ADMINISTRATOR OF HOME HEALTH 0.25 mg riTUXimab-abbs 700 mg in NaCl 0.9% IVPB (Truxima) 700 mg (rounded from 731.25 mg = 375 mg/m2 1.95 m2 Treatment Plan BSA from Measured weight), intravenous, Once, On Sun01/11/24 at 1045, For 1 dose, Infuse over 90 minutes at 280 mL/hr for 30 minutes; then 560 mL/hr for 60 minutes., Restriction Criteria (Pharmacy will review and approve if criteria met): Meets rituximab algorithm criteriaIndications:Diffus e Large B Cell Lymphoma Lymph Nodes Of Multiple Sites (HCC),Neutropenia Chemotherapy Induced (HCC) Rate/Dose Change 01/11/2024 12:04 PM ADMINISTRATOR OF HOME HEALTH 560 mL/hr New Bag 01/11/2024 11:10 AM ADMINISTRATOR OF HOME HEALTH 700 mg vinCRIStine 2 mg in NaCl 0.9% 60 mL IVPB (Oncovin) 2 mg (set by rule on 09/18/2023 3:34 PM), intravenous, Administer over 10 Minutes, Once, On Sun01/11/24 at 1230, For 1 dose, Not to exceed 2 mg per dose. For Intravenous Use Only -- FATAL if given INTRATHECALLY. If being given via PERIPHERAL IV, medication MUST be administered by gravity. If being given via CENTRAL LINE, medication may be administered by pump or gravity. 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
--- OUTSIDE RECORDS SUMMARY | 2024-01-17 19:40 | XMS_ITS | Encounter Summary ---
Author Organization [facility] Address [address] [place] [address] Care Team Providers Care Investigation Division Captain Name Role Phone Elsewhere, Pcp Primary Care Provider Unavailabl e Reason for Visit * Episode Based Medications (Routine) - Authorized Specialty Diagnoses / Procedures Referred By Contdelia [...] BIOSIMILAR, 0.5 MG Eric Renner M.D. 200 [place] [address] Phone: tel: fax: [facility] Referral ID Status Reason Start Date Expiration Date V isits Requested Visits Authorized [id number] Authorized 09/19/2023 07/08/2024 7 99 Encounter Details Date Type Department Care Team (Late st Contact Info) Description 01/14/2024 10:30 AM WELDING FOREMAN Infusion Department of Oncology in [place], [place] [address] [place] [phone] Susu Cameron M.D. 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 I have a [facility] place to live 08/15/2023 Comments No [...] (Latest Contact Info) Description 02/11/2024 10:30 AM WELDING FOREMAN Appointment Department of Laboratory Medicine and Pathology, [facility] in [address] [phone] Aníbal Reece APRN, C.NMaggi., M.S.N. [address] [place] [phone] 02/11/2024 12:15 PM WELDING FOREMAN Appointment Department of Radiology, [facility] in [address] [phone] Aníbal Reece APRN, C.NMaggi., M.S.N. [address] [place] [phone] 02/19/2024 8:15 AM WELDING FOREMAN Clinical Communication Virtual Review in [place], [place] 200 [place] [address] 02/20/2024 8:30 AM WELDING FOREMAN Office Visit Division of Hematology in [address] [phone] Eric Renner M.D. [address] [place] [phone] 02/20/2024 9:00 AM WELDING FOREMAN Education Division of Hematology in [address] [phone] Aníbal Reece APRN, C.N.P., M.S.N. 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) documented in this encounter Administered Medications Inactive Administered Medications - up to 3 most recent administrations Medication Order MAR Action Action Date Dose Rate Site pegfilgrastim injection 6 mg (Neulasta) 6 mg, subcutaneous, Once, On 01/14/24 at 1030, For 1 dose, Restriction Criteria (Pharmacy will review and approve if criteria met): Meets restriction criteriaIndications:Diffus e Large B Cell Lymphoma Lymph Nodes Of Multiple Sites (HCC),Neutropenia Chemotherapy Induced (HCC) Given 01/14/2024 10:11 AM WELDING FOREMAN 6 mg Left Upper Abdomen documented in this encounter Additional Health Concerns Infection Onset Date Last Indicated Resolved Time Protective Environment 09/19/2023 09/19/2023 documented as of this encounter Care Teams Investigation Division Captain Relationship Specialty Start Date End Date Elsewhere, Pcp PCP - General Internal Medicine 08/21/23 documented as of this encounter
--- OUTSIDE RECORDS SUMMARY | 2024-01-17 19:40 | XMS_ITS | Encounter Summary ---
Author Organization [facility] Address [address] [place] [address] Care Team Providers Care Casting Room Operator Name Role Phone Elsewhere, Pcp Primary Care Provider Unavailabl e Reason for Visit * Outpatient (Routine) - Closed Specialty Diagnoses / Procedures Referred By Contdelia t Referred To Contact Diagnoses Vertigo Benign Paroxysmal Positional Bilateral Procedures Audio-Vestibular Balance evaluation Eric Renner M.D. 200 [place] [address] Phone: tel: fax: [facility] Referral ID Status Reason Start Date Expiration Date Visits Re quested Visits Authorized [id number] Closed 10/17/2023 10/16/2024 1 1 Encounter Details Date Type Department Care Team (Latest Contact Info) Description 01/14/2024 1:00 PM RESTUARANT CREW WORKER Diagnostic Department of Otorhinolaryngology in [place], [place] [address] [place] [phone] Eric Renner M.D. [address] [place] [phone] Osiel Middleton Au.D. [address] [place] [phone] Vestibulopathy Right (Primary Dx) Social History Tobacco Use Types Packs/Day Years Used Date Smoking Tobacco: Every Day Cigarettes 1.5 81.9 Started: 02/12/1982 Smokeless Tobacco: Never Alcohol Use Standard Drinks/Week Comments Not Currently 0 (1 standard drink = 0.6 oz pur e alcohol) rarely [facility] Utilities Answer Date Recorded In the [...] your living situation today? I have a [facility] place to live 08/15/2023 Comments No Sex and Gender Information Value Date Recorded Sex Assigned at Female 08/15/2023 7:51 AM CDT Legal Sex Female 8:36 AM CDT Gender Identity Female 08/15/2023 7:51 AM CDT Sexual Orientation Straight 08/15/2023 7: 51 AM CDT documented as of this encounter Consult Notes * Osiel Middleton Au.D. - 01/14/2024 1:00 PM CST DEMOGRAPHIC INFORMATION Clinic Number: [id number] Patient Name: Ms. Ana Fuller Age: 53 y.o. Birthdate: 1970 Sex: female Address: [address] [place] [phone] Provider: Jus Trujillo Service: ENT/ Vestibular and Balance Clinic SUBJECTIVE CHIEF COMPLAINT/PURPOSE FOR VISIT Dizziness HISTORY OF PRESENT COMPLAINT Ana Fuller is a 53 y.o. who is seen today at the request of Eric Monzon M.D.for a vestibular and balance evaluation. She reports dizziness symptoms for over 10 years. She describes her dizziness as episodes of spinning vertigo lasting shorter than 1 minute that come spontaneously regardless of position, and inconsistently with head and body movements. She is not able to trigger the dizziness, though notes it frequently happens when walking or going up/down stairs. She might experience multiple episodes in a day, or go months without experiencing symptoms. Her most recent vertigo episode was 1.5 weeks ago. She denies current head/body or visual motion sensitivities, oscillopsia, autophony, nausea, vomiting, imbalance, or falls. Ms. Fuller reports a history of migraines, her most recent migraine being 2 months ago. These migraines start with her vision blurring, dizziness/lightheadedness and nausea, followed by a severe headache that worsens in intensity and is accompanied by visual aura and light/sound sensitivity. She also reports episodes, the first being in the '80s, where she has severe presyncope symptoms including seeing stars, tunnel vision, and dizziness. She reports brief moments of diplopia described as like being drunk. Regarding Ms. Hernandezs hearing, audiometry from today demonstrated a bilateral high frequency sensorineural hearing loss, asymmetric right worse than left 6-10 kHz. Tympanometry indicates high tympanic mobility with normal middle ear pressure and ear canal volume (Type Ad) bilaterally. Observation of Ms. Hernandezs gait showed normal stride length, arm swing, walking speed, and head turns. She was able to walk on heels, toes, and in tandem without difficulty. Dizziness Handicap Inventory (DHI): 18 out of 100 PHQ-4 responses: 1. Feeling nervous, anxious or on edge: 1 2. Not being able to stop or control worrying 1 3. Feeling down, depressed, or hopeless 1 4. Little interest or pleasure in doing things 1 Anxiety score (#1+#2) = 2 (>2 suggests high likelihood of clinically significant anxiety symptoms) Depression score (#3+#4) = 2 (>2 suggests high likelihood of clinically significant depressive symptoms) OBJECTIVE VIDEONYSTAGMOGRAPHY tested by Braulio Barnes (audiology attraction attendant) and supervised by Jus Trujillo Eye measurements: Infrared goggles, vertical and horizontal measurements obtained Direct Vestibular Office Examination Ocular range of motion: normal Ocular counter-rolling: normal Cover/cross-cover test: normal Vestibulo-Ocular Reflex Assessment vHIT - right horizontal canal: normal Gain: 1.05 vHIT - left horizontal canal: normal Gain: 1.12 Horizontal headshake test: negative Vertical headshake test: negative Right mastoid vibration test: negative Left mastoid vibration test: negative Gaze Testing (with fixation) Center gaze test: negative Right gaze test: negative Left gaze test: negative Up gaze test: negative Down gaze test: negative Gaze Testing (without fixation) Center gaze test: negative Right gaze test: negative Left gaze test: negative Up gaze test: negative Positional Testing (without fixation) Supine: down-beating, 3 deg/sec without symptoms Lateral-right: left-beating, 3 deg/sec; down-beating, 3 deg/sec without symptoms Lateral-left: right-beating, 4 deg/sec; down-beating, 4 deg/sec without symptoms 30 degrees supine: negative Positioning Testing Elbing-Hallpike head hanging right: negative Elbing-Hallpike head hanging left: negative Roll test - right: negative Roll test - left: negative Caloric Testing Caloric testing: Water for a duration of 30 seconds (warm: 44C, cool: 30C) Right warm: right beating (deg/sec): 7 Left warm: left beating (deg/sec): 37 Right cool: left beating (deg/sec): 5 Left cool: right beating (deg/sec): 25 Reduced vestibular response - weaker ear: Right ear, 68% Directional preponderance: Left-beating, 14% Overall caloric test: Abnormally reduced right horizontal canal caloric response. Ocular Motor Studies Ocular pursuit: normal Ocular saccades: normal Vestibular Evoked Myogenic Potentials- Cervical Right ipsilateral response: 97 dB nHL at 500 Hz Right ear - P1 latency (ms): 12.67 Right ear - N1 latency (ms): 21.67 Right ear- P1 to N1 amplitude (microvolts): 84.51 Right ear - third window indication: none, VEMP threshold was greater than 70 dB nHL Left ipsilateral response: 97 dB nHL at 500 Hz Left ear - P1 latency (ms): 13.67 Left ear - N1 latency (ms): 25.67 Left ear- P1 to N1 amplitude (microvolts): 115.8 Left ear - third window indication: none, VEMP threshold was greater than 70 dB nHL Asymmetry ratio: left stronger, 16% Overall cervical VEMPS test: normal Vestibular Evoked Myogenic Potentials- Ocular Right contralateral response: 97 dB nHL at 500 Hz Right ear - N1 latency (ms): 11.3 Right ear - P1 latency (ms): 19.33 Right ear- N1 to P1 amplitude (microvolts): 4.42 Left contralateral response: 97 dB nHL at 500 Hz Left ear - N1 latency (ms): 13 Left ear - P1 latency (ms): 19 Left ear- N1 to P1 amplitude (microvolts): 2.76 Asymmetry ratio: right stronger, 23% Overall ocular VEMPS test: normal Rotary Chair Spontaneous nystagmus: negative Sinusoidal harmonic acceleration range tested: 0.01 Hz, 0.08 Hz, 0.32 Hz 0.01 Hz phase: 45.83 0.01 Hz gain: 0.26 0.01 Hz symmetry: 12.7 0.08 Hz phase: 7.88 0.08 Hz gain: 0.53 0.08 Hz symmetry: 10.26 0.32 Hz phase: -0.13 0.32 Hz gain: 0.47 0.32 Hz symmetry: 7.54 Fixation suppression: normal, 92% gain reduction at 0.08 Hz Overall rotary chair test: normal Postural Control Testing Modified Clinical Test of Sensory Interaction in Balance (CTSIB-M) result: Normal Safety Measures for Use of Rotary Chair Patient Check Sheet For all protocols the 5 point lap-belt torso harness needs to be in place. If for any reason the appropriate straps can not be placed the test is not to be performed. For all the protocols make sure that the chair is positioned so that the axis of rotation is through the center of the head (as viewed from the side of the patient - this should not have to be changed from patient to patient). Make sure the monitoring cameras are on and functioning and that these are viewed frequently duringthe testing. If these are not available or malfunction during the test the protocol is stopped or not started Make sure that the verbal communication system is functioning. If that was not available or was to malfunction during the testing the protocol is stopped or not started. No one over 350 lbs is to be tested in the chair system. Prior to all tests while chair is locked in place check to see if there is any movement of the chair system on its base. I hereby attest that the above safety measures were met: Jus Trujillo ASSESSMENT / PLAN IMPRESSIONS Testing today showed right peripheral vestibular system involvement, paretic in nature, based on caloric testing. There were no other objective indications of peripheral vestibular system dysfunctionnoted during testing. There were no indications of active benign paroxysmal positional vertigo (BPPV) noted today. There were no objective indications of central vestibular system dysfunction noted. Mrs. Fuller's ability to maintain upright stance under a variety of changing sensory input conditions was normal when evaluated using the modified Clinical Test of Sensory Integration on Balance (CTSIB). Results from the PHQ-4 indicate low likelihood of clinically significant depressive or anxiety symptoms. #1 Peripheral vestibular hypofunction, right RECOMMENDATIONS An appointment with the vestibular and balance rehabilitation program was ordered alongside this appointment and had been scheduled for today. However, patient declined these services due to the unpredictable nature of her current symptoms. These services can be reconsidered in the future should symptoms worsen and/or become more provokable. Consider ENT consultation given the unexplained right horizontal semicircular canal hypofunction and slightly asymmetric right greater than left hearing loss from 6-10 kHz. She should follow up with Eric Monzon M.D. for review of these results and for further recommendations. Thank you for referring your patient to us for evaluation. Braulio Barnes and Jus Trujillo UARANT CREW WORKER documented in this encounter Plan of Treatment Upcoming Encounters Date Type Department Care Team (Latest Contact Info) Description 02/11/2024 10:30 AM RESTUARANT CREW WORKER Appointment Department of Laboratory Medicine and Pathology, [facility] in [address] [phone] Aníbal Reece APRN, C.N.P., M.S.N. [address] [place] [phone] 02/11/2024 12:15 PM RESTUARANT CREW WORKER Appointment Department of Radiology, [facility] in [address] [phone] Aníbal Reece APRN, C.N.Ad., M.S.N. [address] [place] [phone] 02/19/2024 8:15 AM RESTUARANT CREW WORKER Clinical Communication Virtual Review in [place], [place] 200 [place] [phone] 02/20/2024 8:30 AM RESTUARANT CREW WORKER Office Visit Division of Hematology in [address] [phone] Eric Renner M.D. [address] [place] [phone] 02/20/2024 9:00 AM RESTUARANT CREW WORKER Education Division of Hematology in [address] [phone] Aníbal Reece APRN, C.N.P., M.S.N. [address] [place] [phone] documented as of this encounter Procedures Procedure Name Priority Date/Time Associated Diagnosis Comments AUDIO-VESTIBULAR BALANCE EVALUATION Routine 01/14/2024 12:00 AM RESTUARANT CREW WORKER Vertigo Benign Paroxysmal Positional Bilateral documented in this encounter Results * Audio-Vestibular Balance evaluation (01/14/2024 12:00 AM RESTUARANT CREW WORKER) 01/14/2024 Eric Monzon M.D. ENT ORDERABLES F inal Result documented in this encounter Visit Diagnoses Diagnosis Vestibulopathy Right- Primary documented in this encounter Additional Health Concerns Infection Onset Date Last Indicated Resolved Time Protective Environment 09/19/2023 09/19/2023 documented as of this encounter Care Teams Casting Room Operator Relationship Specialty Start Date End Date Elsewhere, Pcp PCP - General Internal Medicine 08/21/23 documented as of this encounter
--- OUTSIDE RECORDS SUMMARY | 2024-01-17 19:41 | XMS_ITS | Encounter Summary ---
Author Organization [facility] Address [address] [place] [id number] Care Team Providers Care Card Filer Name Role Phone Elsewhere, Pcp Primary Care Provider Unavailabl e Reason for Visit * Reason Onset Date Comments Results 12/07/2023 Encounter Details Date Type Department Care Team ([facility] st Contact Info) Description 12/07/2023 Clinical Communication Division of Hematology in [place], [place] [address] [place] [address] Eric Renner M.D. [address] [place] [phone] Results Social History Tobacco Use Types Packs/Day Years Used Date Smoking Tobacco: Every Day Cigarettes 1.5 81.9 Started: 02/12/1982 Smokeless Tobacco: Never Alcohol Use Standard Drinks/Week Comments Not Currently 0 (1 standard drink = 0.6 oz pur e alcohol) rarely [facility] Utilities Answer Date Recorded In the past 12 months has [employer], gas, oil, or water [employer] threatened to shut off services in your [...] your living situation today? I have a [facility] place to live 08/15/2023 Comments No Sex and Gender Information Value Date Recorded Sex Assigned at Female 08/15/2023 7:51 AM CDT Legal Sex Female 8:36 AM CDT Gender Identity Female 08/15/2023 7:51 AM CDT Sexual Orientation Straight 08/15/2023 7: 51 AM CDT documented as of this encounter Miscellaneous Notes * Telephone Encounter - Liat Lal, R.N. 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 Udenyca given on 12/03/23 Portal message sent to patient Test Result Information: Resulted Orders CBC with Differential, Blood Result Value Ref Range EXT Leukocytes 8.38 4.50 - 11.00 K/uL EXT RBC 3.38 (L) 4.00 - 5.20 m/uL EXT Hemoglobin 11.0 (L) 12.0 - 16.0 gm/dL EXT Hematocrit 33.8 33.0 - 51.0 % EXT MCV 100 80 - 100 fL EXT Platelet Count 183 140 - 440 K/uL EXT Neutrophils 5.90 1.7 - 7.0 K/uL EXT Lymphocytes 0.80 (L) 0.90 - 2.90 K/uL EXT Monocytes 0.20 0.00 - 0.90 K/UL EXT Eosinophils 0.02 0.00 - 0.50 K/uL EXT Basophils 0.03 0.00 - 0.30 K/uL Narrative External results verified in Extract by Anne Marie Gaines on 12/07/2023 at 08:[address] Herman Disposition/Recommendation: self-care is appropriate at this time, patient encouraged to call back with questions Information/Education: not applicable Caller agreeable to plan of care: yes documented in this encounter Plan of Treatment Upcoming Encounters Date Type Department Care Team (Latest Contact Info) Description 02/11/2024 10:30 AM LAB ENGINEER Appointment Department of Laboratory Medicine and Pathology, [facility] in [address] [phone] Aníbal Reece APRN, C.N.P., M.S.N. [address] [place] [phone] 02/11/2024 12:15 PM LAB ENGINEER Appointment Department of Radiology, [facility] in [address] [phone] Aníbal Reece APRN, C.N.P., M.S.N. [address] [place] [phone] 02/19/2024 8:15 AM LAB ENGINEER Clinical Communication Virtual Review in [place], [place] 200 [place] [address] 02/20/2024 8:30 AM LAB ENGINEER Office Visit Division of Hematology in [address] [phone] Eric Renner M.D. [address] [place] [phone] 02/20/2024 9:00 AM LAB ENGINEER Education Division of Hematology in [place], [place] [address] [place] [address] Aníbal Reece, FAVIOLA, C.N.P., M.S.N. [address] [place] [address] documented as of this encounter Visit Diagnoses Not on filedocumented in this encounter Additional Health Concerns Infection Onset Date Last Indicated Resolved Time Protective Environment 09/19/2023 09/19/2023 documented as of this encounter Care Teams Card Filer Relationship Specialty Start Date End Date Elsewhere, Pcp PCP - General Internal Medicine 08/21/23 documented as of this encounter
--- OUTSIDE RECORDS SUMMARY | 2024-01-17 19:41 | XMS_ITS | Encounter Summary ---
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 200 [place] [address] Phone: tel: fax: [facility] Referral ID Status Reason Start Date Expiration Date V isits Requested Visits Authorized [id number] Authorized 09/19/2023 07/08/2024 7 99 Encounter Details Date Type Department Care Team (Late st Contact Info) Description 11/30/2023 12:15 PM CDT Infusion Department of Oncology in [place], [place] [address] [place] [phone] Eric Renner M.D. 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 I have a [facility] place to live 08/15/2023 [...] (Latest Contact Info) Description 02/11/2024 10:30 AM GREASE RENDERER Appointment Department of Laboratory Medicine and Pathology, [facility] in [address] [phone] Aníbal Reece APRN, C.NMaggi., M.S.N. [address] [place] [phone] 02/11/2024 12:15 PM GREASE RENDERER Appointment Department of Radiology, [facility] in [address] [phone] Aníbal Reece APRN, C.NMaggi., M.S.N. [address] [place] [phone] 02/19/2024 8:15 AM GREASE RENDERER Clinical Communication Virtual Review in [place], [place] 200 [place] [address] 02/20/2024 8:30 AM GREASE RENDERER Office Visit Division of Hematology in [address] [phone] Eric Renner M.D. [address] [place] [phone] 02/20/2024 9:00 AM GREASE RENDERER Education Division of Hematology in [address] [phone] Aníbal Reece APRN, C.N.P., M.S.N. 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)- Primary Neutropenia Chemotherapy Induced (HCC) documented in this encounter Administered Medications Inactive Administered Medications - up to 3 most recent administrations Medication Order MAR Action Action Date Dose Rate Site acetaminophen tablet 650 mg (TylenoL) 650 mg, oral, Once, On Sun11/30/23 at 1234, For 1 dose, Administer 30 minutes prior to riTUXimab.Indications:Diff use Large B Cell Lymphoma Lymph Nodes Of Multiple Sites (HCC),Neutropenia Chemotherapy Induced (HCC) Given 11/30/2023 12:58 PM CDT 650 mg cycloPHOSphamide 1,500 mg in NaCl 0.9% 350 mL IVPB (Cytoxan) 1,500 mg (rounded from 1,462.5 mg = 750 mg/m2 1.95 m2 Treatment Plan BSA from Measured weight), intravenous, at 700 mL/hr, Administer over 30 Minutes, Once, On Sun11/30/23 at 1530, For 1 doseIndications: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),Neutropenia Chemotherapy Induced (HCC) New Bag 11/30/2023 4:08 PM CDT 1,500 mg 700 mL/hr diphenhydrAMINE injection 25 mg (BenadryL) 25 mg, intravenous, Once, On Sun11/30/23 at 1234, For 1 dose, Administer 30 minutes prior to riTUXimab.Indications:Diff use Large B Cell Lymphoma Lymph Nodes Of Multiple Sites (HCC),Neutropenia Chemotherapy Induced (HCC) Given 11/30/2023 12:58 PM CDT 25 mg DOXOrubicin injection 100 mg (Adriamycin) 100 mg (rounded from 97.5 mg = 50 mg/m2 1.95 m2 Treatment Plan BSA from Measured weight), intravenous, Administer over 10 Minutes, Once, On Sun11/30/23 at 1500, For 1 dose, Administer IV push through a free flowing IV of 0.9% NaCL over approximately 10 minutes via Y-site. 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),Neutropenia Chemotherapy Induced (HCC) Given 11/30/2023 12:58 PM CDT 0.25 mg riTUXimab-abbs 700 mg in NaCl 0.9% IVPB (Truxima) 700 mg (rounded from 731.25 mg = 375 mg/m2 1.95 m2 Treatment Plan BSA from Measured weight), intravenous, Once, On Sun11/30/23 at 1330, For 1 dose, Infuse over 90 minutes at 280 mL/hr for 30 minutes; then 560 mL/hr for 60 minutes., Restriction Criteria (Pharmacy will review and approve if criteria met): Meets rituximab algorithm criteriaIndications:Diffus e Large B Cell Lymphoma Lymph Nodes Of Multiple Sites (HCC),Neutropenia Chemotherapy Induced (HCC) Rate/Dose Change 11/30/2023 2:26 PM CDT 560 mL/hr New Bag 11/30/2023 1:52 PM CDT 700 mg vinCRIStine 2 mg in NaCl 0.9% 60 mL IVPB (Oncovin) 2 mg (set by rule on 09/18/2023 3:34 PM), intravenous, Administer over 10 Minutes, Once, On Sun11/30/23 at 1500, For 1 dose, Not to exceed 2 mg per dose. For Intravenous Use Only -- FATAL if given INTRATHECALLY. If being given via PERIPHERAL IV, medication MUST be administered by gravity. If being given via CENTRAL LINE, medication may be administered by pump or gravity. 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
--- OUTSIDE RECORDS SUMMARY | 2024-01-17 19:41 | XMS_ITS | Encounter Summary ---
Author Organization [facility] Address [address] [place] [address] Care Team Providers Care Supervisor [employer] Name Role Phone Elsewhere, Pcp Primary Care Provider Unavailabl e Reason for Visit * Reason Onset Date Comments Return call to Dr. Brown 11/21/2023 Encounter Details Date Type Department Care Team (Latest Contact Info) Description 11/21/2023 Clinical Communication Division of Hematology in [place], [place] [address] [place] [address] Eric Renner M.D. [address] [place] [phone] [address] Brown Social History Tobacco Use Types Packs/Day Years Used Date Smoking Tobacco: Every Day Cigarettes 1.5 81.9 Started: 02/12/1982 Smokeless Tobacco: Never Alcohol Use Standard Drinks/Week Comments Not Currently 0 (1 standard drink = 0.6 oz pur e alcohol) rarely [facility] Utilities Answer Date Recorded In the past 12 months has e [employer], gas, oil, or water [employer] threatened to shut off services in your [...] your living situation today? I have a [facility] to live 08/15/2023 Comments No Sex [...] (Latest Contact Info) Description 02/11/2024 10:30 AM EMERGENCY TECHNICIAN Appointment Department of Laboratory Medicine and Pathology, [place], [place] 200 [place] [address] Aníbal Reece APRN, C.N.P., M.S.N. [address] [place] [phone] 02/11/2024 12:15 PM EMERGENCY TECHNICIAN Appointment Department of Radiology, [place], [place] 200 [place] [address] Aníbal Reece APRN, C.N.P., M.S.N. [address] [place] [phone] 02/19/2024 8:15 AM EMERGENCY TECHNICIAN Clinical Communication Virtual Review in [place], [place] 200 [place] [phone] 02/20/2024 8:30 AM EMERGENCY TECHNICIAN Office Visit Division of Hematology in [place], [place] [address] [place] [phone] Eric Renner M.D. [address] [place] [phone] 02/20/2024 9:00 AM EMERGENCY TECHNICIAN Education Division of Hematology in [address] [phone] Aníbal Reece, FAVIOLA, C.N.P., M.S.N. [address] [place] [phone] documented as of this encounter Visit Diagnoses Not on filedocumented in this encounter Additional Health Concerns Infection Onset Date Last Indicated Resolved Time Protective Environment 09/19/2023 09/19/2023 documented as of this encounter Care Teams Supervisor [employer] Relationship Specialty Start Date End Date Elsewhere, Pcp PCP - General Internal Medicine 08/21/23 documented as of this encounter
--- OUTSIDE RECORDS SUMMARY | 2024-01-17 19:41 | XMS_ITS | Encounter Summary ---
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 [address] [place] [address] Phone: tel: fax: [facility] Referral ID Status Reason Start Date Expiration Date V isits Requested Visits Authorized [id number] Authorized 09/19/2023 07/08/2024 7 99 Encounter Details Date Type Department Care Team (Latest Contact Info) Description 12/21/2023 6:50 AM MANUFACTURING MECHANIC - 12/21/2023 11:59 PM MANUFACTURING MECHANIC Hospital Encounter Department of Laboratory Medicine and Pathology, [facility] in [place], [place] [address] [place] [address] Eric Renner M.D. 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 I have a [facility] place to live 08/15/2023 Comments No Sex and Gender Information Value Date Recorded Sex Assigned at Female 08/15/2023 7:51 AM CDT Legal Sex Female 8:36 AM CDT Gender Identity Female 08/15/2023 7:51 AM CDT Sexual Orientation Straight 08/15/2023 7: 51 AM CDT documented as of this encounter Medications at Time of Discharge acetaminophen (TylenoL) 500 mg tablet Take 2 tablets (1,000 mg total) by mouth every 6 (six) hours as needed for pain. Please do not take more than 4,000 mg in 24 hours. 4 atorvastatin (Lipitor) 80 mg tablet Take 80 mg by mouth daily. 3 benzonatate (Tessalon) 200 mg capsule Take 200 mg by mouth as needed. 4 blood sugar diagnostic strips (Blood Glucose Test Strips) daily. 5 budesonide-formo teroL (Symbicort) 160-4.5 mcg/actuation inhaler Inhale 2 puffs 2 (two) times a day. 2 buPROPion (Wellbutrin SR) 100 mg 12 hr tablet Take 1 tablet by mouth daily. cyclobenzaprine (FlexeriL) 10 mg tablet Take 10 mg by mouth as needed. 4 gabapentin (NEURONTIN) 600 mg tablet Take 600 mg by mouth 3 (three) times a day. 3 hydrOXYzine (Atarax) 50 mg tablet Take 50-100 mg by mouth at bedtime as needed for anxiety (sleep). 4 ibuprofen 800 mg tablet Take 800 mg by mouth 2 (two) times a day. Sometimes 3 time a day 4 ipratropium-albu teroL (DUONEB) 0.5-2.5 mg/3 mL nebulizer solution INHALE 1 VIAL BY MOUTH VIA NEBULIZER EVERY 6 HOURS NEEDED FOR SHORTNESS OF BREATH 3 lancets 30 gauge misc Use once daily as directed. Pharmacy dispense brand based on insurance. 4 lidocaine viscous (Xylocaine) 2 % mucosal solution MIX 5 ML OF LIDOCAINE, ANTACID SUSPENSION, AND DIPHENHYDRAMINE LIQUID AND TAKE BY MOUTH FOUR TIMES A DAY AFTER MEALS AND AT BEDTIME. HOLD IN MOUTH FOR 1 MINUTE. DO NOT EAT OR DRINK FOR 15 TO 30 MINUTES AFTER USE 100 mL 2 10/17/2023 1:15 PM CDT 4 metFORMIN (Glucophage) 500 mg tablet Take 1,000 mg by mouth 2 (two) times a day with meals. 3 morphine (MS Contin) 15 mg ER tablet Take 1 tablet by mouth 2 (two) times a day. 4 nebulizer accessories kit Nebulizer, disposable neb kit x 4, reuseable neb kit x 1, mask x 1, filters x 1. Frequency of use: every 6 hours as needed; Medication: Albuterol or Duoneb. Length of need: 99 months 2 nicotine (Nicoderm CQ) 21 mg/[address] 1 patch on the skin daily. 4 nystatin (Mycostatin) 100,000 unit/mL suspension Take 500,000 Units by mouth 4 (four) times a day. 4 omeprazole (PriLOSEC) [address] capsule TAKE 1 CAPSULE BY MOUTH DAILY BEFORE MORNING MEAL. 60 capsule 4 ondansetron (Zofran) 8 mg tabletIndication s: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) Take 1 tablet (8 mg total) by mouth every 8 (eight) hours as needed for nausea or vomiting (unrelieved by prochlorperazine). 30 tablet 3 09/27/2023 3:14 PM CDT 4 09/27/19 25 oxyCODONE (Roxicodone) 5 mg immediate release tablet 5 mg 3 (three) times a day. 4 prochlorperazine (Compazine) 10 mg tabletIndication s: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) Take 1 tablet (10 mg total) by mouth every 6 (six) hours as needed for nausea or vomiting. 30 tablet 3 09/27/2023 3:14 PM CDT 4 09/27/19 25 QUEtiapine (SEROqueL) 200 mg tablet Take 200 mg by mouth at bedtime as needed. Dosen't take regularly due to drowsiness 4 SUMAtriptan (IMITREX) 100 mg tablet GIVE AT MINIMUM 2 HOURS APART. MAXIMUM DOSE OF 200 MG PER 24 HOURS. 3 SUMATRIPTAN SUCCINATE ORAL Take 100 mg by mouth as needed. 4 tirzepatide (Mounjaro) 10 mg/0.5 mL pen injector injection Inject 10 mg under the skin once a week. 4 Ventolin HFA 90 mcg/actuation inhaler INHALE 1 TO 2 PUFFS BY MOUTH EVERY 4 HOURS NEEDED FOR WHEEZING 1ST CHOICE 3 predniSONE (Deltasone) 50 mg tabletIndication s: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) Take 2 tablets (100 mg total) by mouth daily for 5 doses. Days 1 through 5 of each cycle. (Prior to chemotherapy if a chemo day) 10 tablet 2 01/11/2024 7:39 AM MANUFACTURING MECHANIC 4 01/16/20 documented as of this encounter Plan of Treatment Upcoming Encounters Date Type Department Care Team (Latest Contact Info) Description 02/11/2024 10:30 AM MANUFACTURING MECHANIC Appointment Department of Laboratory Medicine and Pathology, [facility] in [place], [place] [address] [place] [phone] Aníbal Reece APRN, C.N.P., M.S.N. [address] [place] [phone] 02/11/2024 12:15 PM MANUFACTURING MECHANIC Appointment Department of Radiology, [facility] in [place], [place] [address] [place] [phone] Aníbal Reece APRN, C.N.P., M.S.N. [address] [place] [phone] 02/19/2024 8:15 AM MANUFACTURING MECHANIC Clinical Communication Virtual Review in [place], [place] [address] [place] [phone] 02/20/2024 8:30 AM MANUFACTURING MECHANIC Office Visit Division of Hematology in [place], [place] [address] [place] [phone] Eric Renner M.D. [address] [place] [phone] 02/20/2024 9:00 AM MANUFACTURING MECHANIC Education Division of Hematology in [place], [place] [address] [place] [address] Aníbal Reece APRN CJacquelinNJacquelinP., M.S.N. 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) Neutropenia Chemotherapy Induced (HCC) documented in this encounter Results * (ABNORMAL) Comprehensive Metabolic Panel (12/21/2023 7:00 AM MANUFACTURING MECHANIC) Potassium, S 4.7 3.6 - 5.2 mmol/L 12/21/2023 7:55 AM MANUFACTURING MECHANIC DTL Sodium, S 143 135 - 145 mmol/L 12/21/2023 7:55 AM MANUFACTURING MECHANIC DTL Chloride, S 107 98 - 107 mmol/L 12/21/2023 7:55 AM MANUFACTURING MECHANIC DTL Bicarbonate, S 24 22 - 29 mmol/L 12/21/2023 7:55 AM MANUFACTURING MECHANIC DTL Anion Gap 12 7 - 15 12/21/2023 7:55 AM MANUFACTURING MECHANIC DTL BUN (Blood Urea Nitrogen), S 11 6 - 21 mg/dL 12/21/2023 7:55 AM MANUFACTURING MECHANIC DTL Creatinine 0.78 0.59 - 1.04 mg/dL 12/21/2023 7:55 AM MANUFACTURING MECHANIC DTL Estimated GFR (eGFR) >90 >=60 mL/min/BS A 12/21/2023 7:55 AM MANUFACTURING MECHANIC DTL Comment: Estimated GFR calculated using the 2020 CKD_EPI creatinine equation. Calcium, Total, S 9.1 8.6 - 10.0 mg/dL 12/21/2023 7:55 AM MANUFACTURING MECHANIC DTL Glucose, S 123 70 - 140 mg/dL 12/21/2023 7:55 AM MANUFACTURING MECHANIC DTL Protein, Total, S 6.0(L) 6.3 - 7.9 g/dL 12/21/2023 7:55 AM MANUFACTURING MECHANIC DTL Albumin, S 4.1 3.5 - 5.0 g/dL 12/21/2023 7:55 AM MANUFACTURING MECHANIC DTL Aspartate Aminotransferase (AST), S 18 8 - 43 U/L 12/21/2023 7:55 AM MANUFACTURING MECHANIC DTL Alkaline Phosphatase, S 89 35 - 104 U/L 12/21/2023 7:55 AM MANUFACTURING MECHANIC DTL Alanine Aminotransferase (ALT), S 19 7 - 45 U/L 12/21/2023 7:55 AM MANUFACTURING MECHANIC DTL Bilirubin, Total, S <0.2 0.0 - 1.2 mg/dL 12/21/2023 7:55 AM MANUFACTURING MECHANIC DTL Blood (Blood, Venous) 12/21/2023 7:00 AM MANUFACTURING MECHANIC 12/21/2023 7:35 AM MANUFACTURING MECHANIC Eric Monzon M.D. LAB BLOOD ADD-ON Final Result [address] [address], [facility] [place] [address] * (ABNORMAL) CBC with Differential, Blood (12/21/2023 7:00 AM MANUFACTURING MECHANIC) Hemoglobin 12.0 11.6 - 15.0 g/dL 12/21/2023 7:35 AM MANUFACTURING MECHANIC DTL Hematocrit 36.4 35.5 - 44.9 % 12/21/2023 7:35 AM MANUFACTURING MECHANIC DTL Erythrocytes 3.59(L) 3.92 - 5.13 x10(12)/L 12/21/2023 7:35 AM MANUFACTURING MECHANIC DTL MCV 101.4(H) 78.2 - 97.9 fL 12/21/2023 7:35 AM MANUFACTURING MECHANIC DTL RBC Distrib Width 18.8(H) 12.2 - 16.1 % 12/21/2023 7:35 AM MANUFACTURING MECHANIC DTL Platelet Count 293 157 - 371 x10(9)/L 12/21/2023 7:35 AM MANUFACTURING MECHANIC DTL Leukocytes 9.9(H) 3.4 - 9.6 x10(9)/L 12/21/2023 7:35 AM MANUFACTURING MECHANIC DTL Neutrophils 8.11(H) 1.56 - 6.45 x10(9)/L 12/21/2023 7:35 AM MANUFACTURING MECHANIC DHPM Lymphocytes 0.96 0.95 - 3.07 x10(9)/L 12/21/2023 7:35 AM MANUFACTURING MECHANIC DTL Monocytes 0.76 0.26 - 0.81 x10(9)/L 12/21/2023 7:35 AM MANUFACTURING MECHANIC DTL Eosinophils <0.03 0.03 - 0.48 x10(9)/L 12/21/2023 7:35 AM MANUFACTURING MECHANIC DTL Basophils 0.05 0.01 - 0.08 x10(9)/L 12/21/2023 7:35 AM MANUFACTURING MECHANIC DTL Blood (Blood, Venous) 12/21/2023 7:00 AM MANUFACTURING MECHANIC 12/21/2023 7:22 AM MANUFACTURING MECHANIC Erci Monzon M.D. 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
--- OUTSIDE RECORDS SUMMARY | 2024-01-17 19:41 | XMS_ITS | Encounter Summary ---
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 [address] [place] [address] Phone: tel: fax: [facility] Referral ID Status Reason Start Date Expiration Date V isits Requested Visits Authorized [id number] Authorized 09/19/2023 07/08/2024 7 99 Encounter Details Date Type Department Care Team (Late st Contact Info) Description 12/21/2023 10:00 AM AQUATIC ECOLOGIST Infusion Department of Oncology in [place], [place] [address] [place] [phone] Eric Renner M.D. 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 I have a [facility] place to live 08/15/2023 Comments No [...] (Latest Contact Info) Description 02/11/2024 10:30 AM AQUATIC ECOLOGIST Appointment Department of Laboratory Medicine and Pathology, [facility] in [address] [phone] Aníbal Reece APRN, C.NMaggi., M.S.N. [address] [place] [phone] 02/11/2024 12:15 PM AQUATIC ECOLOGIST Appointment Department of Radiology, [facility] in [address] [phone] Aníbal Reece APRN, C.NMaggi., M.S.N. [address] [place] [phone] 02/19/2024 8:15 AM AQUATIC ECOLOGIST Clinical Communication Virtual Review in [place], [place] [address] [place] [address] 02/20/2024 8:30 AM AQUATIC ECOLOGIST Office Visit Division of Hematology in [address] [phone] Eric Renner M.D. [address] [place] [phone] 02/20/2024 9:00 AM AQUATIC ECOLOGIST Education Division of Hematology in [address] [phone] Aníbal Reece APRN, C.N.P., M.S.N. 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)- Primary Neutropenia Chemotherapy Induced (HCC) documented in this encounter Administered Medications Inactive Administered Medications - up to 3 most recent administrations Medication Order MAR Action Action Date Dose Rate Site acetaminophen tablet 650 mg (TylenoL) 650 mg, oral, Once, On Sun12/21/23 at 1045, For 1 dose, Administer 30 minutes prior to riTUXimab.Indications:Dif fuse Large B Cell Lymphoma Lymph Nodes Of Multiple Sites (HCC),Neutropenia Chemotherapy Induced (HCC) Given 12/21/2023 10:37 AM AQUATIC ECOLOGIST 650 mg cycloPHOSphamide 1,500 mg in NaCl 0.9% 350 mL IVPB (Cytoxan) 1,500 mg (rounded from 1,462.5 mg = 750 mg/m2 1.95 m2 Treatment Plan BSA from Measured weight), intravenous, at 700 mL/hr, Administer over 30 Minutes, Once, On Sun12/21/23 at 1315, For 1 doseIndications: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),Neutropenia Chemotherapy Induced (HCC) New Bag 12/21/2023 1:47 PM AQUATIC ECOLOGIST 1,500 mg 700 mL/hr diphenhydrAMINE injection 25 mg (BenadryL) 25 mg, intravenous, Once, On Sun12/21/23 at 1045, For 1 dose, Administer 30 minutes prior to riTUXimab.Indications:Dif fuse Large B Cell Lymphoma Lymph Nodes Of Multiple Sites (HCC),Neutropenia Chemotherapy Induced (HCC) Given 12/21/2023 10:38 AM AQUATIC ECOLOGIST 25 mg DOXOrubicin injection 100 mg (Adriamycin) 100 mg (rounded from 97.5 mg = 50 mg/m2 1.95 m2 Treatment Plan BSA from Measured weight), intravenous, Administer over 10 Minutes, Once, On Sun12/21/23 at 1245, For 1 dose, Administer IV push through a free flowing IV of 0.9% NaCL over approximately 10 minutes via Y-site. 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),Neutropenia Chemotherapy Induced (HCC) New Bag 12/21/2023 11:14 AM AQUATIC ECOLOGIST 800 mL/hr 800 mL/hr palonosetron injection 0.25 mg (Aloxi) 0.25 mg, intravenous, Once, On Sun12/21/23 at 1040, For 1 doseIndications: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 Or proceed with initial rate of 100 mg/hr and increase by 100 mg/hr every 30 minutes to a maximum of 400 mg/hr., Restriction Criteria (Pharmacy will review and approve if criteria met): Meets rituximab algorithm criteriaIndications:Diffu se Large B Cell Lymphoma Lymph Nodes Of Multiple Sites (HCC),Neutropenia Chemotherapy Induced (HCC) Rate/Dose Change 12/21/2023 12:07 PM AQUATIC ECOLOGIST 560 mL/hr New Bag 12/21/2023 11:33 AM AQUATIC ECOLOGIST 700 mg 280 mL/hr vinCRIStine 2 mg in NaCl 0.9% 60 mL IVPB (Oncovin) 2 mg (set by rule on 09/18/2023 3:34 PM), intravenous, Administer over 10 Minutes, Once, On Sun12/21/23 at 1245, For 1 dose, Not to [...] Sites (HCC),Neutropenia Chemotherapy Induced (HCC) New Bag 12/21/2023 1:32 PM AQUATIC ECOLOGIST 2 mg documented in this encounter Additional Health Concerns Infection Onset Date Last Indicated Resolved Time Protective Environment 09/19/2023 09/19/2023 documented as of this encounter Care Teams Watch Manufacturing Supervisor Relationship Specialty Start Date End Date Elsewhere, Pcp PCP - General Internal Medicine 08/21/23 documented as of this encounter
--- OUTSIDE RECORDS SUMMARY | 2024-01-17 19:41 | XMS_ITS | Encounter Summary ---
Author Organization [facility] Address [address] [place] [address] Care Team Providers Care Ribbon Lapper Tender Name Role Phone Elsewhere, Pcp Primary Care Provider Unavailabl e Reason for Visit * Reason Comments Injections udenyca * Episode Based Medications (Routine) - Authorized [...] BIOSIMILAR, 0.5 MG Eric Renner M.D. [address] [place] [phone] Phone: tel: fax: [facility] Referral ID Status Reason Start Date Expiration Date V isits Requested Visits Authorized [id number] Authorized 09/19/2023 07/08/2024 7 99 Encounter Details Date Type Department Care Team (Late st Contact Info) Description 12/03/2023 11:30 AM CDT Infusion Department of Infusion Therapy in [place], [place] [address] [place] [phone] Aníbal Reece APRN, C.N.P., M.S.N. 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 I have a [facility] place to live 08/15/2023 Comments No Sex and Gender Information Value Date Recorded Sex Assigned at Female 08/15/2023 7:51 AM CDT Legal Sex Female 8:36 AM CDT Gender Identity Female 08/15/2023 7:51 AM CDT Sexual Orientation Straight 08/15/2023 7: 51 AM CDT documented as of this encounter Last Filed Vital Signs Vital Sign Reading Time Taken Comments Blood Pressure 114/78 12/03/2023 11:25 AM CDT Pulse 117 12/03/2023 11:25 AM CDT Temperature 36.9 C (98.4 F) 12/03/2023 11:25 AM CDT Respiratory Rate 20 12/03/2023 11:25 AM CDT Oxygen Saturation 99% 12/03/2023 11:25 AM CDT Inhaled Oxygen Concentration - - Weight - - Height - - Body Mass Index - - documented in this encounter Plan of Treatment Upcoming Encounters Date Type Department Care Team (Latest Contact Info) Description 02/11/2024 10:30 AM WIRE WEAVING LOOM SETTER Appointment Department of Laboratory Medicine and Pathology, [facility] in [address] [phone] Aníbal Reece APRN, C.N.P., M.S.N. [address] [place] [phone] 02/11/2024 12:15 PM WIRE WEAVING LOOM SETTER Appointment Department of Radiology, [facility] in [address] [phone] Aníbal Reece APRN, C.N.P., M.S.N. [address] [place] [phone] 02/19/2024 8:15 AM WIRE WEAVING LOOM SETTER Clinical Communication Virtual Review in [place], [place] 200 [place] [phone] 02/20/2024 8:30 AM WIRE WEAVING LOOM SETTER Office Visit Division of Hematology in [address] [phone] Eric Renner M.D. [address] [place] [phone] 02/20/2024 9:00 AM WIRE WEAVING LOOM SETTER Education Division of Hematology in [place], [place] [address] [place] [phone] Aníbal Reece APRN, C.N.P., M.S.N. 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) documented in this encounter Administered Medications Inactive Administered Medications - up to 3 most recent administrations Medication Order MAR Action Action Date Dose Rate Site pegfilgrastim-cbqv injection 6 mg (Udenyca) 6 mg, subcutaneous, Once, On 12/03/23 at 1145, For 1 dose, Restriction Criteria (Pharmacy will review and approve if criteria met): Meets restriction criteriaIndications:Diffus e Large B Cell Lymphoma Lymph Nodes Of Multiple Sites (HCC),Neutropenia Chemotherapy Induced (HCC) Given 12/03/2023 11:29 AM CDT 6 mg Left Upper Arm (Back) documented in this encounter Additional Health Concerns Infection Onset Date Last Indicated Resolved Time Protective Environment 09/19/2023 09/19/2023 documented as of this encounter Care Teams Ribbon Lapper Tender Relationship Specialty Start Date End Date Elsewhere, Pcp PCP - General Internal Medicine 08/21/23 documented as of this encounter
--- OUTSIDE RECORDS SUMMARY | 2024-01-17 19:41 | XMS_ITS | Encounter Summary ---
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 [address] [place] [phone] Phone: tel: fax: [facility] Referral ID Status Reason Start Date Expiration Date V isits Requested Visits Authorized [id number] Authorized 09/19/2023 07/08/2024 7 99 Encounter Details Date Type Department Care Team (Late st Contact Info) Description 12/21/2023 9:00 AM BREWERY PUMPER Office Visit Division of Hematology in [place], [place] [address] [place] [phone] Zulma Hickey APRN, C.N.P., M.S.N. 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) (Primary Dx); Neutropenia Chemotherapy Induced (HCC) Social History Tobacco Use Types Packs/Day Years Used Date Smoking Tobacco: Every Day Cigarettes 1.5 81.9 Started: 02/12/1982 Smokeless Tobacco: Never Alcohol Use Standard Drinks/Week Comments Not Currently 0 (1 standard drink = 0.6 oz pur e alcohol) rarely [facility] Utilities Answer Date Recorded In the past [...] [facility] 08/15/2023 Comments No Sex and Gender Information Value Date Recorded Sex Assigned at Female 08/15/2023 7:51 AM CDT Legal Sex Female 8:36 AM CDT Gender Identity Female 08/15/2023 7:51 AM CDT Sexual Orientation Straight 08/15/2023 7: 51 AM CDT documented as of this encounter Last Filed Vital Signs Vital Sign Reading Time Taken Comments Blood Pressure 100/66 12/21/2023 8:47 AM BREWERY PUMPER Pulse 106 12/21/2023 8:47 AM BREWERY PUMPER Temperature 36.4 C (97.5 F) 12/21/2023 8:47 AM BREWERY PUMPER Respiratory Rate - - Oxygen Saturation 92% 12/21/2023 8:47 AM BREWERY PUMPER Inhaled Oxygen Concentration - - Weight 77.4 kg (170 lb 10.2 oz) 12/21/2023 8:47 AM BREWERY PUMPER Height 164.5 cm (5' 4.76) 12/21/2023 8:47 AM CS T Body Mass Index 28.6 12/21/2023 8:47 AM BREWERY PUMPER documented in this encounter Progress Notes * Zulma Hickey APRN, C.N.P., M.S.N. - 12/21/2023 9:00 AM CST SUBJECTIVE CHIEF COMPLAINT / REASON FOR VISIT Primary Hematology MD: Dr. 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 08/23/2023 Biopsy/Pathology CT guided Soft Tissue, Pelvis, Left, Nodule, FNA (smears/core bx): DLBCL, NOS. BCL2-positive/MYC-negative by IHC (not a double-expresser). Positive for a BCL2 gene rearrangement but negative for MYC and BCL6 gene rearrangements by interphase FISH (not a double-hit lymphoma). Bone, Left iliac lesion, FNA (smears/core bx): B-cell lymphoma, not further classifiable due to extensive crush artifact. 09/14/2023 Clinical Stage Baseline PET-CT shows intensely FDG avid left pelvic mass along with FDG avid lymphadenopathy belowdiaphragm including spleen. 09/28/2023 - Chemotherapy R-CHOP (riTUXimab / cycloPHOSphamide / DOXOrubicin / vinCRIStine / predniSONE) Start Date: 09/28/2023 11/08/2023 Critical Imaging PET/CT after 2 cycles of R-CHOP shows a Deauville score of 2. INTERVAL HISTORY: Ana Fuller is a 53 y.o. female who presents for evaluation of diffuse large B-cell lymphoma. She returns to the clinic today prior to cycle 5 of R- CHOP chemotherapy. She is accompanied by antonio Jiménez at today's visit. Today, she reports she tolerated this last cycle quite well without any significant side effects or toxicities. She denies any fevers, infections, antibiotics or emergency room visits. With prior cycles she was hospitalized for pneumonia and she has made a full recovery. She continues to report consistent night sweats. These have been present the entire time without any change. She denies any new rashes, skin lesions or palpable adenopathy. She is not having any nausea or vomiting and does not report any antiemetic use. Bowel movements are stable. She is not having any significant neuropathy, other than her baseline neuropathy which is unchanged. She continues to endorse hip pain, noting now bilateral hip pain. The left hip pain is significantly better now rating it about as 6 to 7/10. She is using ibuprofen and Oxy which have been helpful. She does mention some right-sided hip pain which likely is compensatory due to previous issues on the left side. She does mention some non cardiac sounding right-sided chest flank and shoulder pain that happens on occasion. This is happened on and off for a number of years occurring intermittently at most once a month. She has had repeat echo when she was admitted for pneumonia and showed preserved heart function. She has not had this evaluated while it was actively happening or by her PCP so I discussed tho se as options for evaluation, and at this time since it predates her lymphoma diagnosis I suspect it is unrelated. She denies any bone pain associated with G-CSF. She is having some intermittent mouth sores and hashad relief with magic mouthwash. I discussed using viscous lidocaine on a Q-tip to help spot treat specific areas that are problematic. The following portions of the patient's history were reviewed and updated as appropriate: allergies, current medications, family history, medical history, social history, surgical history, and problem list. REVIEW OF SYSTEMS REVIEW OF SYSTEMS OBJECTIVE BP 100/66 (BP Location: Right arm, Patient Position: Sitting, Cuff Size: Regular) Pulse 106 Temp 36.4 ??C (Tympanic) Ht 164.5 cm Wt 77.4 kg SpO2 92% BMI 28.60 kg/m?? Wt Readings from Last 3 Encounters: 12/21/23 77.4 kg 11/30/23 78.7 kg 11/09/23 80.6 kg PHYSICAL EXAM General: Well-nourished, in good hygiene, in no apparent distress. ECOG 0 Lungs: Symmetrical movements, clear to auscultation in all garcia. No cough, wheezing, crackles or shortness of breath noted. Heart: Regular rate/rhythm, S1 S2, no gallop, rub, or murmur. Abdomen: Soft, non-tender, no distention. Bowel sounds in all 4 quadrants. There is no hepatosplenomegaly, or palpable masses. Lymphadenopathy: No cervical, supraclavicular, axillary, or inguinal lymphadenopathy palpable. Skin: No rash noted. Limited exam. Neck: trachea midline, no tenderness, masses, or enlargement of thyroid. Extremities: Warm and well perfused, no edema. Mouth: No erythema, ulcers, swelling, enlargement of tonsils or surrounding tissue, or thrush. Psychiatric: Normal mood and affect. Behavior is normal. Judgment and thought content normal Neurological: alert and oriented, clear speech. Steady gait without use of assistive device. No obvious deficits. DIAGNOSTICS I have reviewed the recent relevant laboratory studies and labs are unremarkable. 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 Fuller in the clinic today. She returns for evaluation prior to cycle 5 of R-CHOP chemotherapy. I am happy to report the last cycle of treatment when exceptionally well. Did not have any major side effects or toxicities. Side effects seem to be stable and or well controlled. At this time, I recommend proceeding with completion of treatment. She was in agreement with the plan. She will continue with pain regimen for her hip pain, and I did discuss topical Voltaren as a possible addition to her pain regimen. She was receptive to this. She will continue with magic mouthwash as needed and use topical lidocaine to spot treat specific areas of discomfort. She did not experience bone pain with previous cycle, however she does have Claritin on hand if needed. She continues to get G-CSF, and we will get this on SundayDecember [facility] at [facility]. She will continue with prednisone 100 mg cap dose days 1 through 5. Patient tolerating treatment exceptionally well without any significant changes. There are no concerning findings on physical exam. Labs were reviewed and these are suitable to proceed with chemotherapy. Patient will be in contact if she has any concerns in the interim. We will proceed with cycle 5 of R-CHOP. Plan: 1. Proceed with cycle 5 R-CHOP chemotherapy. 2. G-CSF December 23 [facility] 3. Return to clinic in 3 weeks prior to this 6th and final cycle of treatment labs and office visitprior to infusion. Total time spent: 40 minutes in reviewing records and data, performing H&P, counseling, education, discussion with colleagues, and documentation. The patient verbally consented to an audio recording of their visit to assist with the completion of documentation. Education We discussed the diagnosis and treatment plan in detail. The patient expressed understanding and agreement of the content and plan. No apparent learning barriers were identified; learning preferencesinclude listening. Pt allowed to ask questions; all questions answered. ERY PUMPER documented in this encounter Plan of Treatment Upcoming Encounters Date Type Department Care Team (Latest Contact Info) Description 02/11/2024 10:30 AM BREWERY PUMPER Appointment Department of Laboratory Medicine and Pathology, [place], [place] [address] [place] [phone] Aníbal Reece APRN, C.N.P., M.S.N. [address] [place] [phone] 02/11/2024 12:15 PM BREWERY PUMPER Appointment Department of Radiology, [facility] in [place], [place] [address] [place] [phone] Aníbal Reece APRN, C.NMaggi., M.S.N. [address] [place] [phone] 02/19/2024 8:15 AM BREWERY PUMPER Clinical Communication Virtual Review in [place], [place] [address] [place] [phone] 02/20/2024 8:30 AM BREWERY PUMPER Office Visit Division of Hematology in [place], [place] [address] [place] [phone] Eric Renner M.D. [address] [place] [phone] 02/20/2024 9:00 AM BREWERY PUMPER Education Division of Hematology in [place], [place] [address] [place] [phone] Aníbal Reece APRN, C.NMaggi., M.S.N. 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
--- OUTSIDE RECORDS SUMMARY | 2024-01-17 19:41 | XMS_ITS | Encounter Summary ---
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 [address] [place] [phone] Phone: tel: fax: Eric Renner M.D. 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 [address] [place] [phone] Phone: tel: fax: [facility] Referral ID Status Reason Start Date Expiration Date V isits Requested Visits Authorized [id number] Authorized 09/19/2023 07/08/2024 7 99 Encounter Details Date Type Department Care Team (Late st Contact Info) Description 11/30/2023 9:00 AM CDT Office Visit Division of Hematology in [place], [place] [address] [place] [phone] Aníbal Reece APRN CJacquelinNJacquelinPJacquelin, M.S.N. 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 I have a [facility] place to live 08/15/2023 Comments No Sex and Gender Information Value Date Recorded Sex Assigned at Female 08/15/2023 7:51 AM CDT Legal Sex Female 8:36 AM CDT Gender Identity Female 08/15/2023 7:51 AM CDT Sexual Orientation Straight 08/15/2023 7: 51 AM CDT documented as of this encounter Last Filed Vital Signs Vital Sign Reading Time Taken Comments Blood Pressure 115/75 11/30/2023 8:52 AM CDT Pulse 99 11/30/2023 8:52 AM CDT Temperature 37.1 C (98.8 F) 11/30/2023 8:52 AM CDT Respiratory Rate - - Oxygen Saturation 92% 11/30/2023 8:52 AM CDT Inhaled Oxygen Concentration - - Weight 78.7 kg (173 lb 6.3 oz) 11/30/2023 8:52 A M CDT Height 166.4 cm (5' 5.51) 11/30/2023 8:52 AM CD T Body Mass Index 28.4 11/30/2023 8:52 AM CDT documented in this encounter Progress Notes * Aníbal Reece, FAVIOLA, C.N.P., M.S.N. - 11/30/2023 9:00 AM CDT SUBJECTIVE CHIEF COMPLAINT / REASON FOR VISIT Primary resaw operator: Dr. Herman DLBCL, non-DE HISTORY OF PRESENT ILLNESS Oncology History Overview Note DLBCL, advanced stage IPI24: 33% event risk in 24mo CHILD CARE COUNSELOR-IPI: 3 (intermediate risk) R-IPI: 2 (good prognosis) [...] R-CHOP shows a Deauville score of 2. Ms. Fuller is a 53 y.o. female who returns with her for a scheduled appointment. She has completed 3 cycles of R-CHOP and returns for cycle 4. At last visit, she had a PET-CT which showed anexcellent response with a Deauville score of 2. She has been tolerating chemotherapy without any nausea or vomiting. She does admit to some heartburn occasionally for which she takes Tums and remainson omeprazole. Denies significant constipation. She does note significant fatigue and decreased motivation and this concerns her. She also continues to have pain in the left hip and even the right hip and this also worries her as the left hip was the presenting symptom that ended up with her diagnosis of lymphoma. She has been using oxycodone and ibuprofen as well as a heating pad with some relief. 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 This is not significantly worse, but she now does have some mild neuropathy also in her left hand, not interfering with function. Denies any neuropathic symptoms in her feet. Notably, following each cycle of chemotherapy she developed neutropenia: Following cycle1, ANC jasper was 0.1; following cycle 2 her ANC jasper was 0.6. Following cycle 3, she ended up being hospitalized at [facility] for febrile neutropenia (temp max 103.2) and was diagnosed with bilateral pneumonia. She was treated with antibiotics and is currently completing a course of cefpodoxime. Notably, while hospitalized she did undergo an echocardiogram that showed a left ventricular ejection fraction of 55-60%, which is not substantially changed from her baseline echocardiogram where she had a LVEF of 59%. OBJECTIVE PHYSICAL EXAM Vitals reviewed. Constitutional General: She is not in acute distress. Appearance: Normal appearance. She is well-developed. She is not ill-appearing, toxic-appearing or diaphoretic. HENT Head: Normocephalic and atraumatic. Mouth/Throat: Mouth: Mucous membranes are moist. Pharynx: Oropharynx is clear. Eyes General: No scleral icterus. Cardiovascular Rate and Rhythm: Normal rate and regular rhythm. Pulmonary Effort: Pulmonary effort is normal. No respiratory distress. Breath sounds: Normal breath sounds. No stridor. No wheezing, rhonchi or rales. Abdominal General: Bowel sounds are normal. There is no distension. Palpations: Abdomen is soft. There is no mass. Tenderness: There is no abdominal tenderness. There is no guarding or rebound. Comments: No palpable hepatosplenomegaly. Lymphadenopathy Comments: No palpable peripheral lymphadenopathy. Skin General: Skin is warm and dry. Neurological General: No focal deficit present. Mental Status: She is alert and oriented to person, place, and time. Psychiatric Mood and Affect: Mood normal. Behavior: Behavior normal. Thought Content: Thought content normal. Judgment: Judgment normal. BP 115/75 (BP Location: Right arm, Patient Position: Sitting, Cuff Size: Regular) Pulse 99 Temp37.1 ??C (Tympanic) Ht 166.4 cm Wt 78.7 kg SpO2 92% BMI 28.40 kg/m?? 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 Labs were reviewed and are appropriate for continuing therapy. Prednisone prescription was sent to pending sale to [facility] with 2 additional refills to facilitate refilling prior to cycles 5 and 6. Generally, she is tolerating this reasonably well with expected side effects and I reassured her that what she is experiencing is quite normal. Our goal is to help manage these side effects. She had expressed concern that since she was not experiencing nausea and vomiting that perhaps the chemotherapy was not working. I reviewed with her that she has had an excellent response documented on her PET-CT at last visit. I am happy that we are preventing any potential nauseaor vomiting with our current antiemetic premedications. She is experiencing mild increase in neuropathy above baseline, but not yet interfering with function. I explained that this may worsen with each treatment, and if this becomes worse to the point that it is interfering with function, we may need to consider dose adjustments. I do not see any reason for dose adjustment of any of her chemotherapy agents at this time today. I do anticipate that the fatigue will continue to get worse with eachtreatment, and an effective way of combatting that is to try to be as active as possible, as simpleas walking most days of the week. The more active she can be, the better she will regain her strength once chemotherapy is completed. She is somewhat limited by her hip pain, which she will continue to manage with her current regimen. I did briefly discuss the possibility of seeing our Symptom Management/Palliative Medicine Clinic for assistance with side effects of pain and coping. In addition, I briefly mentioned that we also have availability of Exercise Physiology to help with recommendations on how to remain active despite limitations due to her pain. I did not press these issues as she seems somewhat overwhelmed but I did note that these could be available for her in the future if sheis interested. She will return in 3 weeks for cycle 5. She did express some dissatisfaction that she is seeing different providers for her upcoming visits. I encouraged and reassured her that we have an excellent team taking care of her in order to keep her on schedule. She will see Zulma Hickey APRN, CNP next visit who is excellent, and thereafter is scheduled with Dr. Susu Cameron, who is also excellent.Once she returns for follow-up, we will endeavor to keep her on Dr. Herman' care team with either himself or me. #2 Neutropenia Chemotherapy Induced (HCC) In view of neutropenia following each cycle of chemotherapy with most recent cycle resulting in hospitalization for febrile neutropenia, I recommend the addition of pegfilgrastim. She will be scheduled to receive this on Sunday, December 02 at [facility] site in [place]. I discussed that potential side effect could be bone pain and recommended prophylactic treatment with loratadine, starting today and continuing for 10 days with each cycle of chemotherapy. I personally spent a total of 75 minutes in both face to face and non face to face activities including reviewing records and data, obtaining history, performing physical exam, counseling/education, discussion with colleagues, documentation, and coordination of care. documented in this encounter Plan of Treatment Upcoming Encounters Date Type Department Care Team (Latest Contact Info) Description 02/11/2024 10:30 AM HANGER OFF Appointment Department of Laboratory Medicine and Pathology, [facility] in [address] [phone] Aníbal Reece APRN, C.NMaggi., M.S.N. [address] [place] [phone] 02/11/2024 12:15 PM HANGER OFF Appointment Department of Radiology, [facility] in [address] [phone] Aníbal Reece APRN, C.NMaggi., M.S.N. [address] [place] [phone] 02/19/2024 8:15 AM HANGER OFF Clinical Communication Virtual Review in [place], [place] [address] [place] [address] 02/20/2024 8:30 AM HANGER OFF Office Visit Division of Hematology in [address] [phone] Eric Renner M.D. [address] [place] [phone] 02/20/2024 9:00 AM HANGER OFF Education Division of Hematology in [address] [phone] Aníbal Reece APRN, C.NMaggi., M.S.N. 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) Expected: 02/22/2024 (Approximate), Expires: 03/01/2025 Calcium, Total Lab Routine 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) Expected: 02/22/2024 (Approximate), Expires: 03/01/2025 CBC with Differential, Blood Lab Routine 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) Expected: 02/22/2024 (Approximate), Expires: 03/01/2025 Creatinine with Estimated GFR Lab Routine 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) Expected: 02/22/2024 (Approximate), Expires: 03/01/2025 LD (Lactate Dehydrogenase) Lab Routine 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) Expected: 02/22/2024 (Approximate), Expires: 03/01/[address] Skull to Thigh FDG Imaging RAD - Routine (most inpatients and all outpatients) 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) Expected: 02/22/2024 (Approximate), Expires: 03/01/2025 Scheduled Referrals Name Type Priority Associated Diagnoses Order Schedule Hematology office visit (clinic) [place]; Lymphoma; General Outpatient Referral Routine 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) Expected: 02/22/2024 (Approximate), Expires: 03/01/2025 Hematology - Lymphoma survivorship education visit (clinic) Outpatient Referral Routine 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
--- OUTSIDE RECORDS SUMMARY | 2024-01-17 19:41 | XMS_ITS | Encounter Summary ---
Author Organization [facility] Address [address] [place] [address] Care Team Providers Care Molding Fitter Name Role Phone Elsewhere, Pcp Primary Care Provider Unavailabl e Encounter Details Date Type Department Care Team (Late st Contact Info) Description 11/30/2023 Orders Only Division of Hematology in [place], [place] [address] [place] [address] Aníbal Reece, FAVIOLA, C.N.P., M.S.N. [address] [place] [address] Social History Tobacco Use Types Packs/Day Years Used Date Smoking Tobacco: Every Day Cigarettes 1.5 81.9 Started: 02/12/1982 Smokeless Tobacco: Never Alcohol Use Standard Drinks/Week Comments Not Currently 0 (1 standard drink = 0.6 oz pur e alcohol) rarely [facility] Utilities Answer Date Recorded In the past 12 months has [facility] [employer], gas, oil, or water [employer] threatened to shut off services in your [...] your living situation today? I have a [facility] place to live 08/15/2023 Comments No [...] (Latest Contact Info) Description 02/11/2024 10:30 AM FLOUR BLENDER HELPER Appointment Department of Laboratory Medicine and Pathology, [place], [place] [address] [place] [address] Aníbal Reece APRN, C.N.P., M.S.N. [address] [place] [phone] 02/11/2024 12:15 PM FLOUR BLENDER HELPER Appointment Department of Radiology, [place], [place] [address] [place] [address] Aníbal Reece APRN, C.N.P., M.S.N. [address] [place] [phone] 02/19/2024 8:15 AM FLOUR BLENDER HELPER Clinical Communication Virtual Review in [place], [place] [address] [place] [address] 02/20/2024 8:30 AM FLOUR BLENDER HELPER Office Visit Division of Hematology in [place], [place] [address] [place] [phone] Eric Renner M.D. [address] [place] [phone] 02/20/2024 9:00 AM FLOUR BLENDER HELPER Education Division of Hematology in [address] [phone] Aníbal Reece, FAVIOLA, C.N.P., M.S.N. [address] [place] [phone] documented as of this encounter Visit Diagnoses Not on filedocumented in this encounter Additional Health Concerns Infection Onset Date Last Indicated Resolved Time Protective Environment 09/19/2023 09/19/2023 documented as of this encounter Care Teams Molding Fitter Relationship Specialty Start Date End Date Elsewhere, Pcp PCP - General Internal Medicine 08/21/23 documented as of this encounter
--- OUTSIDE RECORDS SUMMARY | 2024-01-17 19:41 | XMS_ITS | Encounter Summary ---
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 200 [place] [address] Phone: tel: fax: [facility] Referral ID Status Reason Start Date Expiration Date V isits Requested Visits Authorized [id number] Authorized 09/19/2023 07/08/2024 7 99 Encounter Details Date Type Department Care Team (Latest Contact Info) Description 11/30/2023 6:55 AM CDT - 11/30/2023 11:59 PM CDT Hospital Encounter Department of Laboratory Medicine and Pathology, [facility] in [place], [place] [address] [place] [phone] Eric Renner M.D. 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 Start taking on day of chemotherapy for prevention of pegfilgrastim related bone pain; repeat with each cycle of chemotherapy. 2 4 metFORMIN (Glucophage) 500 mg tablet Take [...] day) 10 tablet 2 01/11/2024 7:39 AM IT INVESTMENT/PORTFOLIO MANAGER 4 01/16/20 24 atorvastatin (Lipitor) 80 mg tablet Take 80 mg by mouth daily. 4 12/20/19 24 cefpodoxime (Vantin) 200 mg tablet Take 200 mg by mouth 2 (two) times a day with meals. 4 12/20/19 24 Mounjaro 5 mg/0.5 mL pen injector injection 4 12/20/19 24 documented as of this encounter Plan of Treatment Upcoming Encounters Date Type Department Care Team (Latest Contact Info) Description 02/11/2024 10:30 AM IT INVESTMENT/PORTFOLIO MANAGER Appointment Department of Laboratory Medicine and Pathology, [place], [place] [address] [place] [phone] Aníbal Reece APRN, C.N.P., M.S.N. 200 [place] [phone] 02/11/2024 12:15 PM IT INVESTMENT/PORTFOLIO MANAGER Appointment Department of Radiology, [place], [place] [address] [place] [address] Aníbal Reece APRN, C.N.P., M.S.N. [address] [place] [phone] 02/19/2024 8:15 AM IT INVESTMENT/PORTFOLIO MANAGER Clinical Communication Virtual Review in [place], [place] 200 [place] [address] 02/20/2024 8:30 AM IT INVESTMENT/PORTFOLIO MANAGER Office Visit Division of Hematology in [place], [place] [address] [place] [phone] Eric Renner M.D. [address] [place] [phone] 02/20/2024 9:00 AM IT INVESTMENT/PORTFOLIO MANAGER Education Division of Hematology in [address] [phone] Aníbal Reece APRN, C.NMaggi., M.S.N. 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) documented in this encounter Results * Comprehensive Metabolic Panel (11/30/2023 7:11 AM CDT) Potassium, S 4.7 3.6 - 5.2 mmol/L 11/30/2023 8:04 AM CDT DTL Sodium, S 143 135 - 145 mmol/L 11/30/2023 8:04 AM CDT DTL Chloride, S 105 98 - 107 mmol/L 11/30/2023 8:04 AM CDT DTL Bicarbonate, S 26 22 - 29 mmol/L 11/30/2023 8:04 AM CDT DTL Anion Gap 12 7 - 15 11/30/2023 8:04 AM CDT DTL BUN (Blood Urea Nitrogen), S 14 6 - 21 mg/dL 11/30/2023 8:04 AM CDT DTL Creatinine 0.83 0.59 - 1.04 mg/dL 11/30/2023 8:04 AM CDT DTL Estimated GFR (eGFR) 84 >=60 mL/min/BS A 11/30/2023 8:04 AM CDT DTL Comment: Estimated GFR calculated using the 2020 CKD_EPI creatinine equation. Calcium, Total, S 9.8 8.6 - 10.0 mg/dL 11/30/2023 8:04 AM CDT DTL Glucose, S 89 70 - 140 mg/dL 11/30/2023 8:04 AM CDT DTL Protein, Total, S 6.5 6.3 - 7.9 g/dL 11/30/2023 8:04 AM CDT DTL Albumin, S 4.1 3.5 - 5.0 g/dL 11/30/2023 8:04 AM CDT DTL Aspartate Aminotransferase (AST), S 16 8 - 43 U/L 11/30/2023 8:04 AM CDT DTL Alkaline Phosphatase, S 92 35 - 104 U/L 11/30/2023 8:04 AM CDT DTL Alanine Aminotransferase (ALT), S 18 7 - 45 U/L 11/30/2023 8:04 AM CDT DTL Bilirubin, Total, S 0.2 0.0 - 1.2 mg/dL 11/30/2023 8:04 AM CDT DTL Blood (Blood, Venous) 11/30/2023 7:11 AM CDT 11/30/2023 7:45 AM CDT us Eric Monzon M.D. LAB BLOOD ADD-ON Final Result [facility] [address] [place] [address], [place] DTL [facility] [address] [place] [address] * (ABNORMAL) CBC with Differential, Blood (11/30/2023 7:11 AM CDT) [facility] Hemoglobin 12.4 11.6 - 15.0 g/dL 11/30/2023 7:55 AM CDT DTL Hematocrit 38.1 35.5 - 44.9 % 11/30/2023 7:55 AM CDT DTL Erythrocytes 3.91(L) 3.92 - 5.13 x10(12)/L 11/30/2023 7:55 AM CDT DTL MCV 97.4 78.2 - 97.9 fL 11/30/2023 7:55 AM CDT DTL RBC Distrib Width 16.1 12.2 - 16.1 % 11/30/2023 7:55 AM CDT DTL Platelet Count 420(H) 157 - 371 x10(9)/L 11/30/2023 7:55 AM CDT DTL Leukocytes 7.8 3.4 - 9.6 x10(9)/L 11/30/2023 7:55 AM CDT DTL Neutrophils 5.54 1.56 - 6.45 x10(9)/L 11/30/2023 8:28 AM CDT [facility] Comment:Rechecked Lymphocytes 1.28 0.95 - 3.07 x10(9)/L 11/30/2023 8:28 AM CDT DTL Monocytes 0.85(H) 0.26 - 0.81 x10(9)/L 11/30/2023 8:28 AM CDT DTL Eosinophils <0.03 0.03 - 0.48 x10(9)/L 11/30/2023 8:28 AM CDT DTL Basophils 0.09(H) 0.01 - 0.08 x10(9)/L 11/30/2023 8:28 AM CDT DTL Blood (Blood, Venous) 11/30/2023 7:11 AM CDT 11/30/2023 7:42 AM CDT us Eric Monzon M.D. LAB BLOOD ADD-ON Final Result [facility] [employer] [facility] [address] [place] [address], [facility] DTL [facility] [address] [place] [address] 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
--- OUTSIDE RECORDS SUMMARY | 2024-01-17 19:41 | XMS_ITS | Encounter Summary ---
Author Organization [facility] Address [address] [place] [address] Care Team Providers Care Staff Genetic Counselor Name Role Phone Elsewhere, Pcp Primary Care Provider Unavailabl e Encounter Details Date Type Department Care Team (Late st Contact Info) Description 12/06/2023 Orders Only Division of Hematology in [place], [place] [address] [place] [phone] External, Ordering Provider, Alonzo Social History Tobacco [...] Answer Date Recorded Employment status Unemployed/not in [employer] paid workforce but seeking employment 08/15/2023 Housing Stability Answer Date Recorded What is your living situation today? I have a [facility] place to live 08/15/2023 Comments No [...] Contact Info) Description 02/11/2024 10:30 AM EMERGENCY MEDICAL TECHNICIAN Appointment Department of Laboratory Medicine and Pathology, [facility] in [place], [place] [address] [place] [phone] Aníbal Reece APRN, C.N.P., M.S.N. [address] [place] [phone] 02/11/2024 12:15 PM EMERGENCY MEDICAL TECHNICIAN Appointment Department of Radiology, [facility] in [place], [place] [address] [place] [phone] Aníbal Reece APRN, C.N.P., M.S.N. [address] [place] [phone] 02/19/2024 8:15 AM EMERGENCY MEDICAL TECHNICIAN Clinical Communication Virtual Review in [place], [place] 200 [place] [phone] 02/20/2024 8:30 AM EMERGENCY MEDICAL TECHNICIAN Office Visit Division of Hematology in [place], [place] [address] [place] [phone] Eric Renner M.D. [address] [place] [address] 02/20/2024 9:00 AM EMERGENCY MEDICAL TECHNICIAN Education Division of Hematology in [place], [place] [address] [place] [phone] Aníbal Reece APRN, C.N.P., M.S.N. [address] [place] [phone] documented as of this encounter Procedures Procedure Name Priority Date/Time Associated Diagnosis Comments CBC WITH DIFFERENTIAL, B Routine 12/06/2023 1:06 PM CDT documented in this encounter Results * (ABNORMAL) CBC with Differential, Blood (12/06/2023 1:06 PM CDT) EXT Leukocytes 8.38 4.50 - 11.00 K/uL [facility] EXT RBC 3.38(L) 4.00 - 5.20 m/uL [facility] EXT Hemoglobin 11.0(L) 12.0 - 16.0 gm/dL [facility] EXT Hematocrit 33.8 33.0 - 51.0 % [facility] EXT MCV 100 80 - 100 fL [facility] EXT Platelet Count 183 140 - 440 K/uL [facility] EXT Neutrophils 5.90 1.7 - 7.0 K/uL [facility] EXT Lymphocytes 0.80(L) 0.90 - 2.90 K/uL [facility] EXT Monocytes 0.20 0.00 - 0.90 K/UL [facility] EXT Eosinophils 0.02 0.00 - 0.50 K/uL [facility] EXT Basophils 0.03 0.00 - 0.30 K/uL [facility] 12/06/2023 1:06 PM CDT Narrative [facility] - 12/07/2023 8:10 AM CDT External results verified in Extract by Anne Marie Gaines on 12/07/2023 at 08:[address] Herman us Ordering Provider External Alonzo LAB BLOOD ADD-ON Final Result [facility] [address] [place] [address] documented in this encounter Visit Diagnoses Not on filedocumented in this encounter Additional Health Concerns Infection Onset Date Last Indicated Resolved Time Protective Environment 09/19/2023 09/19/2023 documented as of this encounter Care Teams Staff Genetic Counselor Relationship Specialty Start Date End Date Elsewhere, Pcp PCP - General Internal Medicine 08/21/23 documented as of this encounter
--- OUTSIDE RECORDS SUMMARY | 2024-01-17 19:41 | XMS_ITS | Encounter Summary ---
Author Organization [facility] Address [address] [place] [address] Care Team Providers Care Tobacco Grader Name Role Phone Elsewhere, Pcp Primary Care Provider Unavailabl e Reason for Visit * Reason Comments Med Refill Encounter Details Date Type Department Care Team (Late st Contact Info) Description 11/27/2023 Refill Department of Otorhinolaryngology in [place], [place] [address] [place] [phone] Kendra Garcia M.D. [address] [place] [phone] Med Refill Social History Tobacco Use Types Packs/Day Years Used Date Smoking Tobacco: Every Day Cigarettes 1.5 81.9 Started: 02/12/1982 Smokeless Tobacco: Never Alcohol Use Standard Drinks/Week Comments Not Currently 0 (1 standard drink = 0.6 oz pur e alcohol) rarely [facility] Utilities Answer Date Recorded In the past 12 months has [employer], gas, oil, or water [employer] threatened to shut off services in your [...] your living situation today? I have a [facility] place to live 08/15/2023 Comments No [...] (Latest Contact Info) Description 02/11/2024 10:30 AM GENERAL NEUROLOGIST Appointment Department of Laboratory Medicine and Pathology, [place], [place] 200 [place] [address] Aníbal Reece APRN, C.N.P., M.S.N. [address] [place] [phone] 02/11/2024 12:15 PM GENERAL NEUROLOGIST Appointment Department of Radiology, [place], [place] 200 [place] [phone] Aníbal Reece APRN, C.N.P., M.S.N. [address] [place] [phone] 02/19/2024 8:15 AM GENERAL NEUROLOGIST Clinical Communication Virtual Review in [place], [place] 200 [place] [address] 02/20/2024 8:30 AM GENERAL NEUROLOGIST Office Visit Division of Hematology in [place], [place] [address] [place] [phone] Eric Renner M.D. [address] [place] [phone] 02/20/2024 9:00 AM GENERAL NEUROLOGIST Education Division of Hematology in [address] [phone] Aníbal Reece, FAVIOLA, C.N.P., M.S.N. [address] [place] [phone] documented as of this encounter Visit Diagnoses Not on filedocumented in this encounter Additional Health Concerns Infection Onset Date Last Indicated Resolved Time Protective Environment 09/19/2023 09/19/2023 documented as of this encounter Care Teams Tobacco Grader Relationship Specialty Start Date End Date Elsewhere, Pcp PCP - General Internal Medicine 08/21/23 documented as of this encounter
--- OUTSIDE RECORDS SUMMARY | 2024-01-17 19:41 | XMS_ITS | Encounter Summary ---
Author Organization [facility] Address [address] [place] [address] Care Team Providers Care [employer] Dean Name Role Phone Elsewhere, Pcp Primary Care Provider Unavailabl e Reason for Visit * Reason Onset Date Comments Pre-visit Intake 12/20/2023 Encounter Details Date Type Department Care Team (Latest Contact Info) Description 12/20/2023 7:45 AM NITRIC ACID PLANT OPERATOR Clinical Communication Virtual Review in [place], [place] [address] [place] [phone] Pre-visit Intake Social History Tobacco Use Types Packs/Day Years Used Date Smoking Tobacco: Every Day Cigarettes 1.5 81.9 Started: 02/12/1982 Smokeless Tobacco: Never Tobacco Cessation:Ready to Q uit: Not Asked; Counseling Given: Not Answered Alcohol Use Standard Drinks/Week Comments Not Currently 0 (1 standard drink = 0.6 oz pur e alcohol) rarely C Utilities Answer Date Recorded In the past 12 months has [facility] [employer], gas, oil, or water [employer] threatened to shut off services in your [...] living situation today? I have a [facility] place to live 08/15/2023 Comments No Sex [...] (Latest Contact Info) Description 02/11/2024 10:30 AM NITRIC ACID PLANT OPERATOR Appointment Department of Laboratory Medicine and Pathology, [place], [place] [address] [place] [phone] Aníbal Reece APRN, C.N.P., M.S.N. [address] [place] [phone] 02/11/2024 12:15 PM NITRIC ACID PLANT OPERATOR Appointment Department of Radiology, [facility] in [place], [place] [address] [place] [address] Aníbal Reece APRN, C.N.P., M.S.N. [address] [place] [phone] 02/19/2024 8:15 AM NITRIC ACID PLANT OPERATOR Clinical Communication Virtual Review in [place], [place] [address] [place] [phone] 02/20/2024 8:30 AM NITRIC ACID PLANT OPERATOR Office Visit Division of Hematology in [place], [place] [address] [place] [phone] Eric Renner M.D. [address] [place] [phone] 02/20/2024 9:00 AM NITRIC ACID PLANT OPERATOR Education Division of Hematology in [place], [place] [address] [place] [phone] Aníbal Reece, FAVIOLA, C.N.P., M.S.N. [address] [place] [phone] documented as of this encounter Visit Diagnoses Not on filedocumented in this encounter Additional Health Concerns Infection Onset Date Last Indicated Resolved Time Protective Environment 09/19/2023 09/19/2023 documented as of this encounter Care Teams Business [employer] Dean Relationship Specialty Start Date End Date Elsewhere, Pcp PCP - General Internal Medicine 08/21/23 documented as of this encounter
--- OUTSIDE RECORDS SUMMARY | 2024-01-17 19:41 | XMS_ITS | Encounter Summary ---
Author Organization [facility] Address 200 [place] [address] Care Team Providers Care Sourcing Assistant Name Role Phone Elsewhere, Pcp Primary Care [...] BIOSIMILAR, 0.5 MG Eric Renner M.D. 200 [place] [address] Phone: tel: fax: [facility] Referral ID Status Reason Start Date Expiration Date V isits Requested Visits Authorized [id number] Authorized 09/19/2023 07/08/2024 7 99 Encounter Details Date Type Department Care Team (Latest Contact Info) Description 01/11/2024 6:44 AM ELECTRIC GOLF CART REPAIRER - 01/11/2024 11:59 PM ELECTRIC GOLF CART REPAIRER Hospital Encounter Department of Laboratory Medicine and Pathology, [facility] in [place], [place] [address] [place] [phone] Eric Renner M.D. 200 [place] [phone] Diffuse Large B Cell Lymphoma Lymph Nodes Of Multiple Sites (HCC); Neutropenia Chemotherapy Induced (HCC) Discharge Disposition: Home or Self Care Social History Tobacco Use Types Packs/Day Years Used Date Smoking Tobacco: Every Day Cigarettes 1.5 81.9 Started: 02/12/1982 Smokeless Tobacco: Never Alcohol Use Standard Drinks/Week Comments Not Currently 0 (1 standard drink = 0.6 oz pur e alcohol) rarely [facility] Utilities Answer Date Recorded In the past 12 months has [employer], gas, oil, or water [employer] threatened to shut off services in your [...] living situation today? I have a [facility] place to live 08/15/2023 Comments [...] day) 10 tablet 2 01/11/2024 7:39 AM ELECTRIC GOLF CART REPAIRER 4 01/16/20 documented as of this encounter Plan of Treatment Upcoming Encounters Date Type Department Care Team (Latest Contact Info) Description 02/11/2024 10:30 AM ELECTRIC GOLF CART REPAIRER Appointment Department of Laboratory Medicine and Pathology, [facility] in [place], [place] [address] [place] [phone] Aníbal Reece APRN, C.N.P., M.S.N. [address] [place] [phone] 02/11/2024 12:15 PM ELECTRIC GOLF CART REPAIRER Appointment Department of Radiology, [facility] in [place], [place] [address] [place] [phone] Aníbal Reece APRN, C.N.P., M.S.N. [address] [place] [phone] 02/19/2024 8:15 AM ELECTRIC GOLF CART REPAIRER Clinical Communication Virtual Review in [place], [place] 200 [place] [address] 02/20/2024 8:30 AM ELECTRIC GOLF CART REPAIRER Office Visit Division of Hematology in [place], [place] [address] [place] [phone] Eric Renner M.D. [address] [place] [phone] 02/20/2024 9:00 AM ELECTRIC GOLF CART REPAIRER Education Division of Hematology in [place], [place] [address] [place] [address] Aníbal Reece APRN C.NJacquelinP., M.S.N. [address] [place] [phone] documented as of this encounter Procedures Procedure Name Priority Date/Time Associated Diagnosis Comments CBC WITH DIFFERENTIAL, B Routine 01/11/2024 6:58 AM ELECTRIC GOLF CART REPAIRER Diffuse Large B Cell Lymphoma Lymph Nodes Of Multiple Sites (HCC) Neutropenia Chemotherapy Induced (HCC) COMPREHENSIVE METABOLIC PANEL, S/P Routine 01/11/2024 6:58 AM ELECTRIC GOLF CART REPAIRER Diffuse Large B Cell Lymphoma Lymph Nodes Of Multiple Sites (HCC) Neutropenia Chemotherapy Induced (HCC) documented in this encounter Results * (ABNORMAL) Comprehensive Metabolic Panel (01/11/2024 6:58 AM ELECTRIC GOLF CART REPAIRER) Potassium, S 4.5 3.6 - 5.2 mmol/L 01/11/2024 8:11 AM ELECTRIC GOLF CART REPAIRER DTL Sodium, S 145 135 - 145 mmol/L 01/11/2024 8:11 AM ELECTRIC GOLF CART REPAIRER DTL Chloride, S 111(H) 98 - 107 mmol/L 01/11/2024 8:11 AM ELECTRIC GOLF CART REPAIRER DTL Bicarbonate, S 24 22 - 29 mmol/L 01/11/2024 8:11 AM ELECTRIC GOLF CART REPAIRER DTL Anion Gap 10 7 - 15 01/11/2024 8:11 AM ELECTRIC GOLF CART REPAIRER DTL BUN (Blood Urea Nitrogen), S 12 6 - 21 mg/dL 01/11/2024 8:11 AM ELECTRIC GOLF CART REPAIRER DTL Creatinine 0.64 0.59 - 1.04 mg/dL 01/11/2024 8:11 AM ELECTRIC GOLF CART REPAIRER DTL Estimated GFR (eGFR) >90 >=60 mL/min/BS A 01/11/2024 8:11 AM ELECTRIC GOLF CART REPAIRER DTL Comment: Estimated GFR calculated using the 2020 CKD_EPI creatinine equation. Calcium, Total, S 9.3 8.6 - 10.0 mg/dL 01/11/2024 8:11 AM ELECTRIC GOLF CART REPAIRER DTL Glucose, S 74 70 - 140 mg/dL 01/11/2024 8:11 AM ELECTRIC GOLF CART REPAIRER DTL Protein, Total, S 6.1(L) 6.3 - 7.9 g/dL 01/11/2024 8:11 AM ELECTRIC GOLF CART REPAIRER DTL Albumin, S 4.1 3.5 - 5.0 g/dL 01/11/2024 8:11 AM ELECTRIC GOLF CART REPAIRER DTL Aspartate Aminotransferase (AST), S 16 8 - 43 U/L 01/11/2024 8:11 AM ELECTRIC GOLF CART REPAIRER DTL Alkaline Phosphatase, S 76 35 - 104 U/L 01/11/2024 8:11 AM ELECTRIC GOLF CART REPAIRER DTL Alanine Aminotransferase (ALT), S 20 7 - 45 U/L 01/11/2024 8:11 AM ELECTRIC GOLF CART REPAIRER DTL Bilirubin, Total, S 0.3 0.0 - 1.2 mg/dL 01/11/2024 8:11 AM ELECTRIC GOLF CART REPAIRER DTL Blood (Blood, Venous) 01/11/2024 6:58 AM ELECTRIC GOLF CART REPAIRER 01/11/2024 7:37 AM ELECTRIC GOLF CART REPAIRER Eric Monzon M.D. LAB BLOOD ADD-ON Final Result [facility] [address] [address], [facility] [address] * (ABNORMAL) CBC with Differential, Blood (01/11/2024 6:58 AM ELECTRIC GOLF CART REPAIRER) Hemoglobin 11.4(L) 11.6 - 15.0 g/dL 01/11/2024 7:25 AM ELECTRIC GOLF CART REPAIRER DTL Hematocrit 35.3(L) 35.5 - 44.9 % 01/11/2024 7:25 AM ELECTRIC GOLF CART REPAIRER DTL Erythrocytes 3.34(L) 3.92 - 5.13 x10(12)/L 01/11/2024 7:25 AM ELECTRIC GOLF CART REPAIRER DTL MCV 105.7(H) 78.2 - 97.9 fL 01/11/2024 7:25 AM ELECTRIC GOLF CART REPAIRER DTL RBC Distrib Width 18.7(H) 12.2 - 16.1 % 01/11/2024 7:25 AM ELECTRIC GOLF CART REPAIRER DTL Platelet Count 204 157 - 371 x10(9)/L 01/11/2024 7:25 AM ELECTRIC GOLF CART REPAIRER DTL Leukocytes 7.1 3.4 - 9.6 x10(9)/L 01/11/2024 7:25 AM ELECTRIC GOLF CART REPAIRER DTL Neutrophils 5.65 1.56 - 6.45 x10(9)/L 01/11/2024 7:24 AM ELECTRIC GOLF CART REPAIRER DHPM Lymphocytes 0.85(L) 0.95 - 3.07 x10(9)/L 01/11/2024 7:25 AM ELECTRIC GOLF CART REPAIRER DTL Monocytes 0.58 0.26 - 0.81 x10(9)/L 01/11/2024 7:25 AM ELECTRIC GOLF CART REPAIRER DTL Eosinophils <0.03 0.03 - 0.48 x10(9)/L 01/11/2024 7:25 AM ELECTRIC GOLF CART REPAIRER DTL Basophils 0.03 0.01 - 0.08 x10(9)/L 01/11/2024 7:25 AM ELECTRIC GOLF CART REPAIRER DTL Blood (Blood, Venous) 01/11/2024 6:58 AM ELECTRIC GOLF CART REPAIRER 01/11/2024 7:17 AM ELECTRIC GOLF CART REPAIRER Eric Monzon M.D. LAB BLOOD ADD-ON Final Result [facility] [address] [place] [address], [facility] DTL [facility] [address] [place] [address] DHPM [facility] [address] [place] [address] documented in this encounter Visit Diagnoses Diagnosis Diffuse Large B Cell Lymphoma Lymph Nodes Of Multiple Sites (HCC) Neutropenia Chemotherapy Induced (HCC) documented in this encounter Additional Health Concerns Infection Onset Date Last Indicated Resolved Time Protective Environment 09/19/2023 09/19/2023 documented as of this encounter Care Teams Sourcing Assistant Relationship Specialty Start Date End Date Elsewhere, Pcp PCP - General Internal Medicine 08/21/23 documented as of this encounter
--- OUTSIDE RECORDS SUMMARY | 2024-01-17 19:41 | XMS_ITS | Encounter Summary ---
Author Organization [facility] Address [address] [place] [address] Care Team Providers Care Leaf Stripper Name Role Phone Elsewhere, Pcp Primary Care Provider Unavailabl e Reason for Visit * Episode Based Medications (Routine) - Authorized Specialty Diagnoses / Procedures Referred By Julio t Referred To Contact Diagnoses Diffuse Large B Cell Lymphoma Lymph Nodes Of Multiple Sites (HCC) Neutropenia Chemotherapy Induced (HCC) Procedures ND ONDANSETRON HCL INJECTION ND PALONOSETRON HCL ND RITUXIMAB-ABBS 10MG INJ ND VINCRISTINE SULFATE 1 MG INJ INJ, CYCLOPHOSPHAMIDE, NOS ND DOXORUBIC HCL 10 MG VL CHEMO ND UDENYCA 0.5MG INJ ND INJECTION, PEGFILGRASTIM, EXCLUDES BIOSIMILAR, 0.5 MG Eric Renner M.D. [address] [place] [address] Phone: tel: fax: [facility] Referral ID Status Reason Start Date Expiration Date V isits Requested Visits Authorized [id number] Authorized 09/19/2023 07/08/2024 7 99 Encounter Details Date Type Department Care Team (Late st Contact Info) Description 01/11/2024 9:00 AM ASSOCIATE PROPERTY MANAGER Office Visit Division of Hematology in [place], [place] [address] [place] [phone] Susu Cameron M.D. [address] [place] [phone] Neutropenia Chemotherapy Induced (HCC) (Primary Dx); Diffuse Large B Cell Lymphoma Lymph Nodes Of Multiple Sites (HCC) Social History Tobacco Use Types Packs/Day Years Used Date Smoking Tobacco: Every Day Cigarettes 1.5 81.9 Started: 02/12/1982 Smokeless Tobacco: Never Alcohol Use Standard Drinks/Week Comments Not Currently 0 (1 standard drink = 0.6 oz pur e alcohol) rarely [facility] Utilities Answer Date Recorded In [...] a [facility] to live 08/15/2023 Comments No [...] Comments Blood Pressure 105/70 01/11/2024 8:57 AM ASSOCIATE PROPERTY MANAGER Pulse 101 01/11/2024 8:57 AM ASSOCIATE PROPERTY MANAGER Temperature 36.7 C (98.1 F) 01/11/2024 8:57 AM ASSOCIATE PROPERTY MANAGER Respiratory Rate - - Oxygen Saturation 94% 01/11/2024 8:57 AM ASSOCIATE PROPERTY MANAGER Inhaled Oxygen Concentration - - Weight 76.9 kg (169 lb 10.3 oz) 01/11/2024 8:57 AM ASSOCIATE PROPERTY MANAGER Height 166 cm (5' 5.35) 01/11/2024 8:57 AM ASSOCIATE PROPERTY MANAGER Body Mass Index 27.93 01/11/2024 8:57 AM ASSOCIATE PROPERTY MANAGER documented in this encounter Progress Notes * Susu Cameron M.D. 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 female who presents today for follow-up of diffuse large B-cell lymphoma. The history of lymphoma is listed below. INTERIM HISTORY Patient is doing well. She presents for consideration of cycle 6 of R-CHOP chemotherapy. She tolerating chemotherapy well. She denied nausea, vomiting, changes in bowel habits. She endorses ongoing pelvic pain and is using ibuprofen and oxycodone as needed. Oncology History Overview Note DLBCL, advanced stage IPI24: 33% event risk in 24mo ACOUSTICAL CARPENTER-IPI: 3 (intermediate risk) R-IPI: 2 (good prognosis) [...] R-CHOP shows a Deauville score of 2. The following portions of the patient's history were reviewed and updated as appropriate: allergies, current medications, family history, medical history, social history, surgical history, and problem list. REVIEW OF SYSTEMS Constitutional: - Negative for fever, loss of appetite, night sweats and weight loss of more than 10 pounds. Gastrointestinal: - Negative for abdominal (belly) pain or cramping and nausea. Hematologic: - Negative for abnormal lumps or bumps. Musculoskeletal: Positive for pain or stiffness in the joints (Pelvic pain). OBJECTIVE Vitals: 01/11/24 0857 BP: 105/70 Patient Position: Sitting Pulse: 101 Temp: 36.7 ??C Height: 166 cm Weight: 76.9 kg SpO2: 94% TempSrc: Tympanic Body surface area is 1.88 meters squared. PHYSICAL EXAM Vitals reviewed. Constitutional Appearance: She is well-developed and well-nourished. Cardiovascular Rate and Rhythm: Normal rate and regular rhythm. Heart sounds: Normal heart sounds. Pulmonary Effort: Pulmonary effort is normal. Breath sounds: Normal breath sounds. Abdominal General: Bowel sounds are normal. Palpations: Abdomen is soft. There is no hepatosplenomegaly. Lymphadenopathy Cervical: No cervical adenopathy. Upper Body: No axillary adenopathy present. Right upper body: No supraclavicular adenopathy. Left upper body: No supraclavicular adenopathy. Skin General: Skin is warm and dry. Neurological Mental Status: She is alert and oriented to person, place, and time. Psychiatric Mood and Affect: Mood and affect normal. Behavior: Behavior normal. Thought Content: Thought content normal. Judgment: Judgment normal. DIAGNOSTICS I have reviewed the recent relevant labs. ASSESSMENT / PLAN #1 #1 Diffuse Large B Cell Lymphoma Lymph Nodes Of Multiple Sites (HCC) Laboratory studies were reviewed and are acceptable for treatment. Patient will receive 6th and final cycle of R-CHOP chemotherapy today. She usually receives growth factor in [place] on the Sunday following chemotherapy, but will be in [place] for appointments on SundayJanuary 13 so will arrange for Neulasta (already preauthorized) to be given here. She is already scheduled for end of treatment PET scan on 02/11/2024 and follow-up with Dr. Virgil Monzon was on February 20, 2024. #2 Neutropenia Chemotherapy Induced (HCC) Patient will receive growth factor as per protocol - see above. Signed by: Susu Cameron M.D. 01/11/2024 9:25 AM ASSOCIATE PROPERTY MANAGER CIATE PROPERTY MANAGER documented in this encounter Plan of Treatment Upcoming Encounters Date Type Department Care Team (Latest Contact Info) Description 02/11/2024 10:30 AM ASSOCIATE PROPERTY MANAGER Appointment Department of Laboratory Medicine and Pathology, [facility] in [place], [place] [address] [place] [phone] Aníbal Reece APRN, C.N.P., M.S.N. [address] [place] [phone] 02/11/2024 12:15 PM ASSOCIATE PROPERTY MANAGER Appointment Department of Radiology, [facility], in [address] [phone] Aníbal Reece APRN, C.N.P., M.S.N. [address] [place] [phone] 02/19/2024 8:15 AM ASSOCIATE PROPERTY MANAGER Clinical Communication Virtual Review in [place], [place] 200 [place] [phone] 02/20/2024 8:30 AM ASSOCIATE PROPERTY MANAGER Office Visit Division of Hematology in [address] [phone] Eric Renner M.D. [address] [place] [phone] 02/20/2024 9:00 AM ASSOCIATE PROPERTY MANAGER Education Division of Hematology in [place], [place] [address] [place] [phone] Aníbal Reece, FAVIOLA, C.N.P., M.S.N. [address] [place] [phone] documented as of this encounter Visit Diagnoses Diagnosis Neutropenia Chemotherapy Induced (HCC)- Primary Diffuse Large B Cell Lymphoma Lymph Nodes Of Multiple Sites (HCC) documented in this encounter Additional Health Concerns Infection Onset Date Last Indicated Resolved Time Protective Environment 09/19/2023 09/19/2023 documented as of this encounter Care Teams Leaf Stripper Relationship Specialty Start Date End Date Elsewhere, Pcp PCP - General Internal Medicine 08/21/23 documented as of this encounter
--- OUTSIDE RECORDS SUMMARY | 2024-01-17 19:41 | XMS_ITS | Encounter Summary ---
Author Organization [facility] Address [address] [place] [address] Care Team Providers Care Science Specialist Name Role Phone Elsewhere, Pcp Primary Care Provider Unavailabl e Encounter Details Date Type Department Care Team (Latest Contact Info) Description 11/28/2023 2:20 AM CDT Ancillary Procedure Department [...] th e electric, gas, oil, or water [employer] threatened to shut off services in your [...] your living situation today? I have a [facility] place to live 08/15/2023 Comments No Sex [...] (Latest Contact Info) Description 02/11/2024 10:30 AM NURSE PARALEGAL Appointment Department of Laboratory Medicine and Pathology, [facility] in [place], [place] [address] [place] [phone] Aníbal Reece APRN, C.N.P., M.S.N. [address] [place] [phone] 02/11/2024 12:15 PM NURSE PARALEGAL Appointment Department of Radiology, [facility] in [place], [place] [address] [place] [phone] Aníbal Recee APRN C.N.P., M.S.N. [address] [place] [phone] 02/19/2024 8:15 AM NURSE PARALEGAL Clinical Communication Virtual Review in [place], [place] 200 [place] [phone] 02/20/2024 8:30 AM NURSE PARALEGAL Office Visit Division of Hematology in [place], [place] [address] [place] [phone] Eric Renner M.D. [address] [place] [phone] 02/20/2024 9:00 AM NURSE PARALEGAL Education Division of Hematology in [place], [place] [address] [place] [address] Aníbal Reece, FAVIOLA, C.N.P., M.S.N. [address] [place] [phone] documented as of this encounter Procedures Procedure Name Priority Date/Time Associated Diagnosis Comments OTORHINOLARYNGOLOGY IMAGE EXAM Routine 11/28/2023 2:20 AM CDT documented in this encounter Results * ENT Procedure-Otorhinolaryngology Image Exam (11/28/2023 2:20 AM CDT) Narrative IIMS - 11/28/2023 2:32 PM CDT This order has been created and auto-finalized to support the import of images acquired without order. The clinical documentation to support these images can be found on the encounter that produced images. us Provider Not In System IMG NON RAD IMAGING PROCE DURES Final Result [facility]IM[facility] NA documented in this encounter Visit Diagnoses Not on filedocumented in this encounter Additional Health Concerns Infection Onset Date Last Indicated Resolved Time Protective Environment 09/19/2023 09/19/2023 documented as of this encounter Care Teams Science Specialist Relationship Specialty Start Date End Date Elsewhere, Pcp PCP - General Internal Medicine 08/21/23 documented as of this encounter
--- OUTSIDE RECORDS SUMMARY | 2024-01-17 19:41 | XMS_ITS | Encounter Summary ---
Author Organization [facility] Address [address] [place] [address] Care Team Providers Care Substation Design Draftsperson Name Role Phone Elsewhere, Pcp Primary Care Provider Unavailabl e Reason for Referral * Outpatient (Routine) - Authorized Specialty Diagnoses / Procedures Referred By Julio faustin Referred To Contact Otorhinolaryngology Kendra Garcia M.D. 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 [address] [place] [address] Phone: tel: fax: Kendra Garcia M.D. [address] [place] [address] Phone: tel: fax: Referral ID Status Reason Start Date Expiration Date Visits Re quested Visits Authorized [id number] Closed 08/31/2023 03/01/2025 1 1 Encounter Details Date Type Department Care Team (Latest Contact Info) Description 11/28/2023 2:15 PM CDT Office Visit Department of Otorhinolaryngology in [place], [place] [address] [place] [phone] Kendra Garcia M.D. 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 I have a [facility] place to live 08/15/2023 Comments No Sex and Gender Information Value Date Recorded Sex Assigned at Female 08/15/2023 7:51 AM CDT Legal Sex Female 8:36 AM CDT Gender Identity Female 08/15/2023 7:51 AM CDT Sexual Orientation Straight 08/15/2023 7: 51 AM CDT documented as of this encounter Progress Notes * Kendra Garcia M.D. 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 The lesions were found to be benign squamous hyperkeratosis. The patient reports that her ear hurt for 2-3 days during a recent hospitalization for pneumonia, followed by a popping sound and a sensation of stuffiness and decreased hearing, sometimes accompanied by an echo. 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 The patient is currently undergoing treatments and reports experiencing some side effects, but no vomiting. She mentions being prescribed a steroid nasal spray, but is unsure if it was called into the pharmacy. She also inquires about the interaction between the steroid nasal mist and prednisone during chemotherapy. Ana expresses concern about the possibility of the hyperkeratosis returning and the potential for it to lead to cancer. She also reports noticing a small hard bump in her mouth, which she has been trying to pop but has been unsuccessful. The patient is unsure if she should visit the dentist for this issue. PHYSICAL EXAM: General: Awake, alert, oriented, in no acute distress Head: Normocephalic, atraumatic Face: Symmetric. House-Brackmann 1/6 bilaterally. Symmetric sensation in the distribution of V1-V3 Eyes: Extraocular movements intact. Ears: Auricles unremarkable bilaterally. Otoscopy was performed on both ears. On both sides, the EAC appeared clear without signs of erythema or excoriation. The tympanic membrane was visualized and appeared intact and non-erythematous. It was not retracted. There was a good light reflex and the middle ear space appeared well-aerated. Nose: Nares patent bilaterally. Nasal mucosa appears pink and moist. Mouth: Dentition appeared healthy. There was no trismus. Oral mucosa was pink and moist. No lesionsnoted anywhere on the buccal or labial mucosa, or on the floor of mouth, soft or hard palate, or oral tongue. Tongue is midline and mobile. Palate elevation is symmetric. Uvula is midline. The floor of mouth was flat and soft except for a mild torus mandibuli Neck: Normal range of motion. Trachea is midline. No lymphadenopathy palpable in any of the neck levels on either side. Thyroid was normal in size and there were no palpable nodules. Neuro: Cranial nerves II-XII were grossly intact. The voice is strong without hoarseness or breathiness. Videostroboscopy: Verbal consent was obtained and universal protocol was followed. In order to evaluate the chief complaint, a flexible laryngoscopy with videostroboscopy and [employer] technology was performed as a separate identifiable procedure. Two percent lidocaine with phenylephrine was instilled into the right and left nares. The flexible scope was passed. The entire upper aerodigestive tract was closely examined, specifically the nasopharynx, oropharynx including base of tongue and vallecula, and hypopharynx. The larynx was examined, specifically the supraglottis, true vocal folds, and subglottis. Vocal fold adduction and abduction were assessed. The true vocal folds, arytenoids, and interarytenoid spaces were closely visualized to confirm presence or absence of erythema, edema, or structural lesions. Videostroboscopy was performed to evaluate the vibratory potential and closure patterns of the truevocal folds. Mucosal wave and amplitude were assessed for symmetry. Periodicity and glottic closurewere evaluated. The scope was removed. Specific findings: Patient has no masses or lesions. Her supraglottic squeeze has improved. Phonation has significantly improved. No ulceration on her true cords. She does not have a glottic gap, butdoes have some chasing asymmetry. 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 We discussed that monitoring of voice improvement and healing is recommended, along with a follow-up appointment in6 months and encouragement for smoking cessation. The patient also experienced eustachian tube dysfunction following pneumonia, which we discussed should improve over time without intervention. Regarding the steroid nasal spray, the patient should consult their primary care physician for potential interactions with chemotherapy, but this may help with her ETD. The patient's concern about a mandibular torus was addressed by reassuring her of its benign nature and advising against further manipulation. A follow-up appointment in 6 months is recommended to monitor vocal cord healing and overall progress. Dakotah Garcia M.D. Chief Radiologic Tech [facility] Dept. of Otorhinolaryngology-Head & Neck Surgery documented in this encounter Plan of Treatment Upcoming Encounters Date Type Department Care Team (Latest Contact Info) Description 02/11/2024 10:30 AM AUTOMOTIVE PARTS ADVISOR Appointment Department of Laboratory Medicine and Pathology, [facility] in [place], [place] [address] [place] [phone] Aníbal Reece APRN C.N.P., M.S.N. [address] [place] [phone] 02/11/2024 12:15 PM AUTOMOTIVE PARTS ADVISOR Appointment Department of Radiology, [facility] in [address] [phone] Aníbal Reece APRN, C.N.P., M.S.N. [address] [place] [phone] 02/19/2024 8:15 AM AUTOMOTIVE PARTS ADVISOR Clinical Communication Virtual Review in [place], [place] 200 [place] [address] 02/20/2024 8:30 AM AUTOMOTIVE PARTS ADVISOR Office Visit Division of Hematology in [address] [phone] Eric Renner M.D. [address] [place] [phone] 02/20/2024 9:00 AM AUTOMOTIVE PARTS ADVISOR Education Division of Hematology in [place], [place] [address] [place] [address] Aníbal Reece, FAVIOLA, C.N.P., M.S.N. [address] [place] [address] Scheduled Referrals Name Type Priority Associated Diagnoses Order Schedule Otorhinolaryngology office visit (clinic) Outpatient Referral Routine Expected: 05/28/2024, Expires: 02/27/2025 documented as of this encounter Visit Diagnoses Diagnosis Polyp Of Vocal Cord And Larynx- Primary documented in this encounter Additional Health Concerns Infection Onset Date Last Indicated Resolved Time Protective Environment 09/19/2023 09/19/2023 documented as of this encounter Care Teams Substation Design Draftsperson Relationship Specialty Start Date End Date Elsewhere, Pcp PCP - General Internal Medicine 08/21/23 documented as of this encounter
--- OUTSIDE RECORDS SUMMARY | 2024-01-17 19:41 | XMS_ITS | Encounter Summary ---
Author Organization [facility] Address [address] [place] [address] Care Team Providers Care Hydroponics Worker Name Role Phone Elsewhere, Pcp Primary [...] BIOSIMILAR, 0.5 MG Eric Renner M.D. [address] [place] [address] Phone: tel: fax: [facility] Referral ID Status Reason Start Date Expiration Date V isits Requested Visits Authorized [id number] Authorized 09/19/2023 07/08/2024 7 99 Encounter Details Date Type Department Care Team (Late st Contact Info) Description 12/24/2023 9:00 AM AVIONICS INTEGRATION ENGINEER Infusion Department of Infusion Therapy in [place], [place] [address] [place] [phone] Zulma Hickey APRN, C.N.P., M.S.N. [address] [place] [phone] Neutropenia Chemotherapy Induced (HCC) (Primary Dx); Diffuse [...] In the past 12 months has e [employer]io, gas, oil, or water [employer] threatened to shut off services in your [...] your living situation today? I have a [facility] place to live 08/15/2023 Comments No Sex and Gender Information Value Date Recorded Sex Assigned at Female 08/15/2023 7:51 AM CDT Legal Sex Female 8:36 AM CDT Gender Identity Female 08/15/2023 7:51 AM CDT Sexual Orientation Straight 08/15/2023 7: 51 AM CDT documented as of this encounter Last Filed Vital Signs Vital Sign Reading Time Taken Comments Blood Pressure 108/75 12/24/2023 9:05 AM AVIONICS INTEGRATION ENGINEER Pulse 114 12/24/2023 9:05 AM AVIONICS INTEGRATION ENGINEER Temperature 35.6 C (96.1 F) 12/24/2023 9:05 AM AVIONICS INTEGRATION ENGINEER Respiratory Rate 16 12/24/2023 9:05 AM AVIONICS INTEGRATION ENGINEER Oxygen Saturation 99% 12/24/2023 9:05 AM AVIONICS INTEGRATION ENGINEER Inhaled Oxygen Concentration - - Weight - - Height - - Body Mass Index - - documented in this encounter Plan of Treatment Upcoming Encounters Date Type Department Care Team (Latest Contact Info) Description 02/11/2024 10:30 AM AVIONICS INTEGRATION ENGINEER Appointment Department of Laboratory Medicine and Pathology, [facility] in [address] [phone] Aníbal Reece APRN C.N.P., M.S.N. [address] [place] [phone] 02/11/2024 12:15 PM AVIONICS INTEGRATION ENGINEER Appointment Department of Radiology, [facility] in [address] [phone] Aníbal Reece APRN, C.N.P., M.S.N. [address] [place] [phone] 02/19/2024 8:15 AM AVIONICS INTEGRATION ENGINEER Clinical Communication Virtual Review in [place], [place] 200 [place] [phone] 02/20/2024 8:30 AM AVIONICS INTEGRATION ENGINEER Office Visit Division of Hematology in [address] [phone] Eric Renner M.D. [address] [place] [phone] 02/20/2024 9:00 AM AVIONICS INTEGRATION ENGINEER Education Division of Hematology in [place], [place] [address] [place] [address] Aníbal Reece, FAVIOLA, C.N.P., M.S.N. 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) documented in this encounter Administered Medications Inactive Administered Medications - up to 3 most recent administrations Medication Order MAR Action Action Date Dose Rate Site pegfilgrastim-cbqv injection 6 mg (Udenyca) 6 mg, subcutaneous, Once, On Sun12/24/23 at 0915, For 1 dose, Restriction Criteria (Pharmacy will review and approve if criteria met): Meets restriction criteriaIndications:Diffus e Large B Cell Lymphoma Lymph Nodes Of Multiple Sites (HCC),Neutropenia Chemotherapy Induced (HCC) Given 12/24/2023 8:59 AM AVIONICS INTEGRATION ENGINEER 6 mg Left Upper Arm (Back) documented in this encounter Additional Health Concerns Infection Onset Date Last Indicated Resolved Time Protective Environment 09/19/2023 09/19/2023 documented as of this encounter Care Teams Hydroponics Worker Relationship Specialty Start Date End Date Elsewhere, Pcp PCP - General Internal Medicine 08/21/23 documented as of this encounter
--- OUTSIDE RECORDS SUMMARY | 2024-01-17 19:41 | XMS_ITS | Encounter Summary ---
Author Organization [facility] Address [address] [place] [address] Care Team Providers Care [employer] Rep Name Role Phone Elsewhere, Pcp Primary Care Provider Unavailabl e Reason for Visit * Reason Onset Date Comments Results 11/15/2023 Encounter Details Date Type Department Care Team (Late st Contact Info) Description 11/15/2023 Clinical Communication Division of Hematology in [place], [place] [address] [place] [address] Eric Renner M.D. [address] [place] [address] Results Social History Tobacco Use Types Packs/Day Years Used Date Smoking Tobacco: Every Day Cigarettes 1.5 81.9 Started: 02/12/1982 Smokeless Tobacco: Never Alcohol Use Standard Drinks/Week Comments Not Currently 0 (1 standard drink = 0.6 oz pur e alcohol) rarely [facility] Utilities Answer Date Recorded In the past 12 months has [employer], gas, oil, or water [employer] threatened to shut off services in your [...] (Latest Contact Info) Description 02/11/2024 10:30 AM DRIVER HELPER Appointment Department of Laboratory Medicine and Pathology, [facility] in [address] [phone] Aníbal Reece APRN C.N.P., M.S.N. [address] [place] [phone] 02/11/2024 12:15 PM DRIVER HELPER Appointment Department of Radiology, [facility] in [address] [phone] Aníbal Reece APRN, C.N.P., M.S.N. [address] [place] [phone] 02/19/2024 8:15 AM DRIVER HELPER Clinical Communication Virtual Review in [address] [phone] 02/20/2024 8:30 AM DRIVER HELPER Office Visit Division of Hematology in [address] [address] Eric Renner M.D. [address] [place] [phone] 02/20/2024 9:00 AM DRIVER HELPER Education Division of Hematology in [place], [place] [address] [place] [address] Aníbal Reece, FAVIOLA, C.N.P., M.S.N. [address] [place] [address] documented as of this encounter Visit Diagnoses Not on filedocumented in this encounter Additional Health Concerns Infection Onset Date Last Indicated Resolved Time Protective Environment 09/19/2023 09/19/2023 documented as of this encounter Care Teams [employer] Rep Relationship Specialty Start Date End Date Elsewhere, Pcp PCP - General Internal Medicine 08/21/23 documented as of this encounter
--- OUTSIDE RECORDS SUMMARY | 2024-01-17 19:42 | XMS_ITS | Encounter Summary ---
Author Organization [facility] Address [address] [place] [address] Care Team Providers Care Rail Car Painter/Sandblaster Name Role Phone Elsewhere, Pcp Primary Care Provider Unavailabl e Encounter Details Date Type Department Care Team (Late st Contact Info) Description 11/09/2023 Orders Only [facility] [address] [place] [phone] Carmen Hudson, Pharm.D., R.Ph. 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 I have a [facility] place to live 08/15/2023 Comments No Sex [...] (Latest Contact Info) Description 02/11/2024 10:30 AM MANAGER OF INVESTIGATIONS Appointment Department of Laboratory Medicine and Pathology, [place], [place] 200 [place] [address] Aníbal Reece APRN, C.N.P., M.S.N. [address] [place] [phone] 02/11/2024 12:15 PM MANAGER OF INVESTIGATIONS Appointment Department of Radiology, [place], [place] 200 [place] [address] Aníbal Reece APRN, C.N.P., M.S.N. [address] [place] [phone] 02/19/2024 8:15 AM MANAGER OF INVESTIGATIONS Clinical Communication Virtual Review in [place], [place] 200 [place] [address] 02/20/2024 8:30 AM MANAGER OF INVESTIGATIONS Office Visit Division of Hematology in [place], [place] [address] [place] [phone] Eric Renner M.D. [address] [place] [phone] 02/20/2024 9:00 AM MANAGER OF INVESTIGATIONS Education Division of Hematology in [place], [place] [address] [place] [phone] Aníbal Reece, FAVIOLA, C.N.P., M.S.N. 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
--- OUTSIDE RECORDS SUMMARY | 2024-01-17 19:42 | XMS_ITS | Encounter Summary ---
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 200 [place] [address] Phone: tel: fax: [facility] Referral ID Status Reason Start Date Expiration Date V isits Requested Visits Authorized [id number] Authorized 09/19/2023 07/08/2024 7 99 Encounter Details Date Type Department Care Team (Latest Contact Info) Description 11/09/2023 7:00 AM CDT - 11/09/2023 11:59 PM CDT Hospital Encounter Department of Laboratory Medicine and Pathology, [facility] in [place], [place] [address] [place] [phone] Eric Renner M.D. 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 I have a [facility] place to live 08/15/2023 Comments No [...] bedtime as needed for anxiety (sleep). 4 ipratropium-albu teroL (DUONEB) 0.5-2.5 mg/3 mL [...] (two) times a day with meals. 3 nebulizer accessories kit Nebulizer, disposable neb kit [...] mouth 4 (four) times a day. 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 30 tablet 3 09/27/2023 3:14 PM CDT 4 09/27/19 25 prochlorperazine (Compazine) 10 mg tabletIndication s:Diffuse Large [...] OF 200 MG PER 24 HOURS. 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 Take on Days 1 through 10 for tumor lysis syndrome prophylaxis 10 tablet 09/27/2023 3:14 PM CDT 4 11/30/19 24 Mounjaro 5 mg/0.5 mL pen injector injection 4 12/20/19 24 omeprazole (PriLOSEC) [address] capsule Take 1 capsule (40 mg total) by mouth daily before morning meal. 30 capsule 2 08/31/2023 5:23 PM CDT 4 11/27/19 24 documented as of this encounter Plan of Treatment Upcoming Encounters Date Type Department Care Team (Latest Contact Info) Description 02/11/2024 10:30 AM SCREEN PRINTING PASTER Appointment Department of Laboratory Medicine and Pathology, [facility] in [place], [place] [address] [place] [phone] Aníbal Reece APRN, C.N.P., M.S.N. [address] [place] [phone] 02/11/2024 12:15 PM SCREEN PRINTING PASTER Appointment Department of Radiology, [facility] in [place], [place] [address] [place] [phone] Aínbal Reece APRN, C.N.P., M.S.N. [address] [place] [phone] 02/19/2024 8:15 AM SCREEN PRINTING PASTER Clinical Communication Virtual Review in [place], [place] 200 [place] [address] 02/20/2024 8:30 AM SCREEN PRINTING PASTER Office Visit Division of Hematology in [place], [place] [address] [place] [phone] Eric Renner M.D. [address] [place] [phone] 02/20/2024 9:00 AM SCREEN PRINTING PASTER Education Division of Hematology in [place], [place] [address] [place] [phone] Aníbal Reece APRN, C.N.P., M.S.N. [address] [place] [phone] documented as of this encounter Procedures Procedure [...] CDT Eric Monzon M.D. LAB BLOOD ADD-ON Final Result [facility] 200 [place] [address], [facility] [place] 200 [place] [address] * (ABNORMAL) CBC with Differential, Blood (11/09/2023 [...] CDT Eric Monzon M.D. 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
--- OUTSIDE RECORDS SUMMARY | 2024-01-17 19:42 | XMS_ITS | Encounter Summary ---
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 200 [place] [address] Phone: tel: fax: [facility] Referral ID Status Reason Start Date Expiration Date V isits Requested Visits Authorized [id number] Authorized 09/19/2023 07/08/2024 7 99 Encounter Details Date Type Department Care Team (Late st Contact Info) Description 11/09/2023 10:15 AM CDT Infusion Department of Oncology in [place], [place] [address] [place] [phone] Eric Renner M.D. [address] [place] [phone] Diffuse Large B Cell Lymphoma Lymph Nodes [...] situation today? I have a [facility] place to live 08/15/2023 Comments No [...] (Latest Contact Info) Description 02/11/2024 10:30 AM MEDICAL RECORDS FIELD TECHNICIAN Appointment Department of Laboratory Medicine and Pathology, [facility] in [address] [phone] Aníbal Reece APRN, C.NMaggi., M.S.N. [address] [place] [phone] 02/11/2024 12:15 PM MEDICAL RECORDS FIELD TECHNICIAN Appointment Department of Radiology, [facility] in [address] [phone] Aníbal Reece APRN, C.N.Ad., M.S.N. [address] [place] [phone] 02/19/2024 8:15 AM MEDICAL RECORDS FIELD TECHNICIAN Clinical Communication Virtual Review in [address] [phone] 02/20/2024 8:30 AM MEDICAL RECORDS FIELD TECHNICIAN Office Visit Division of Hematology in [address] [phone] Eric Renner M.D. [address] [place] [phone] 02/20/2024 9:00 AM MEDICAL RECORDS FIELD TECHNICIAN Education Division of Hematology in [address] [phone] Aníbal Reece APRN, C.N.P., M.S.N. 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) New Bag 11/09/2023 2:05 PM CDT 1,500 mg 700 mL/hr diphenhydrAMINE injection 25 mg (BenadryL) 25 mg, intravenous, Once, On Sun11/09/23 at 1100, For 1 dose, Administer 30 minutes prior to riTUXimab.Indications:Diff use Large B Cell Lymphoma Lymph Nodes Of Multiple Sites (HCC) Given 11/09/2023 11:00 AM CDT 25 mg [...] Lymphoma Lymph Nodes Of Multiple Sites (HCC) Given 11/09/2023 1:45 PM CDT 100 mg [...] Lymphoma Lymph Nodes Of Multiple Sites (HCC) New Bag 11/09/2023 11:06 AM CDT 150 mg 500 mL/hr palonosetron injection 0.25 mg (Aloxi) 0.25 mg, intravenous, Once, On Sun11/09/23 at 1106, For 1 doseIndications: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
--- OUTSIDE RECORDS SUMMARY | 2024-01-17 19:42 | XMS_ITS | Encounter Summary ---
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 200 [place] [address] Phone: tel: fax: [facility] Referral ID Status Reason Start Date Expiration Date Visits Re quested Visits Authorized [id number] Closed 11/08/2023 11/07/2024 1 1 * Outpatient (Routine) - Closed Specialty Diagnoses / Procedures Referred By Julio faustin Referred To Contact Diagnoses Vertigo Benign Paroxysmal Positional Bilateral Procedures Audio-Vestibular Balance evaluation Eric Renner M.D. 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 [address] [place] [address] Phone: tel: fax: [facility] Referral ID Status Reason Start Date Expiration Date V isits Requested Visits Authorized [id number] Authorized 09/19/2023 07/08/2024 7 99 Encounter Details Date Type Department Care Team ([facility] st Contact Info) Description 10/17/2023 11:30 AM CDT Office Visit Division of Hematology in [place], [place] [address] [place] [address] Eric Renner M.D. 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 I have a [facility] place to live 08/15/2023 Comments No [...] 121 10/17/2023 11:32 AM CDT Temperature 36.3 C (97.3 F) 10/17/2023 11:32 AM CDT Respiratory Rate - - Oxygen Saturation 96% [...] stage IPI24: 33% event risk in 24mo ELECTRIC ORGAN ASSEMBLER AND CHECKER-IPI: 3 (intermediate risk) R-IPI: 2 (good prognosis) [...] the left hip. Images not reviewed by [facility] Radiology. August 23, 2023: CT-guided needle biopsy [...] Prescription is ready for her at the [facility] pharmacy today. She may use [...] (Latest Contact Info) Description 02/11/2024 10:30 AM FILLER MIXER Appointment Department of Laboratory Medicine and Pathology, [facility] in [address] [phone] Aníbal Reece APRN, C.N.P., M.S.N. [address] [place] [phone] 02/11/2024 12:15 PM FILLER MIXER Appointment Department of Radiology, [facility], in [address] [phone] Aníbal Reece APRN, C.N.P., M.S.N. [address] [place] [phone] 02/19/2024 8:15 AM FILLER MIXER Clinical Communication Virtual Review in [place], [place] 200 [place] [address] 02/20/2024 8:30 AM FILLER MIXER Office Visit Division of Hematology in [address] [phone] Eric Renner M.D. [address] [place] [address] 02/20/2024 9:00 AM FILLER MIXER Education Division of Hematology in [place], [place] [address] [place] [address] Aníbal Reece, FAVIOLA, C.N.P., M.S.N. [address] [place] [address] documented as of this encounter Results * Audio-Vestibular Balance evaluation (01/14/2024 12:00 AM FILLER MIXER) 01/14/2024 us Eric Monzon M.D. ENT ORDERABLES F inal Result * PET CT Whole Body FDG (11/08/2023 [...] RADIOPHARMACEUTICAL/MEDS: Route: intravenous fludeoxyglucose F 18 injection SHELTER (FDG F-18),9.88 millicurie TECHNIQUE: F-18 FDG PET/CT [...] RADIOPHARMACEUTICAL/MEDS: Route: intravenous fludeoxyglucose F 18 injection SHELTER (FDG F-18),9.88 millicurie TECHNIQUE: F-18 FDG PET/CT [...] uptake along the upper esophagus (axial fused hahyb714). Mild inflammatory uptake along the right tibia [...] 2. 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
--- OUTSIDE RECORDS SUMMARY | 2024-01-17 19:42 | XMS_ITS | Encounter Summary ---
Author Organization [facility] Address [address] [place] [address] Care Team Providers Care Supervisory Training Specialist Name Role Phone Elsewhere, Pcp Primary Care Provider Unavailabl e Encounter Details Date Type Department Care Team (Latest Contact Info) Description 10/16/2023 8:00 AM CDT Clinical Communication Virtual Review in [place], [place] [address] [place] [address] Social History Tobacco Use Types Packs/Day Years Used Date Smoking Tobacco: Every Day Cigarettes 1.5 81.9 Started: 02/12/1982 Smokeless Tobacco: Never Alcohol Use Standard Drinks/Week Comments Not Currently 0 (1 standard drink = 0.6 oz pur e alcohol) rarely [facility] Utilities Answer Date Recorded In the [...] Answer Date Recorded Employment status Unemployed/not in [employer] paid workforce but seeking employment 08/15/2023 Housing Stability Answer Date Recorded What is your living situation today? I have a [facility] place to live 08/15/2023 Comments No [...] (Latest Contact Info) Description 02/11/2024 10:30 AM LIVESTOCK HANDLER Appointment Department of Laboratory Medicine and Pathology, [facility] in [place], [place] [address] [place] [phone] Aníbal Reece APRN, C.N.P., M.S.N. [address] [place] [phone] 02/11/2024 12:15 PM LIVESTOCK HANDLER Appointment Department of Radiology, [facility] in [place], [place] [address] [place] [phone] Aníbal Reece APRN, C.N.P., M.S.N. [address] [place] [phone] 02/19/2024 8:15 AM LIVESTOCK HANDLER Clinical Communication Virtual Review in [place], [place] 200 [place] [address] 02/20/2024 8:30 AM LIVESTOCK HANDLER Office Visit Division of Hematology in [place], [place] [address] [place] [address] Eric Renner M.D. [address] [place] [phone] 02/20/2024 9:00 AM LIVESTOCK HANDLER Education Division of Hematology in [place], [place] [address] [place] [address] Aníbal Reece, FAVIOLA, C.N.P., M.S.N. [address] [place] [phone] documented as of this encounter Visit Diagnoses Not on filedocumented in this encounter Additional Health Concerns Infection Onset Date Last Indicated Resolved Time Protective Environment 09/19/2023 09/19/2023 documented as of this encounter Care Teams Supervisory Training Specialist Relationship Specialty Start Date End Date Elsewhere, Pcp PCP - General Internal Medicine 08/21/23 documented as of this encounter
--- OUTSIDE RECORDS SUMMARY | 2024-01-17 19:42 | XMS_ITS | Encounter Summary ---
Author Organization [facility] Address [address] [place] [address] Care Team Providers Care Farm Implement Mechanic Name Role Phone Elsewhere, Pcp Primary Care Provider Unavailabl e Reason for Visit * Reason Onset Date Comments External Lab Entry 10/11/2023 Encounter Details Date Type Department Care Team (Latest Contact Info) Description 10/11/2023 Clinical Communication Division of Hematology in [place], [place] [address] [place] [address] Eliza Collins M.D. [address] [place] [address] External Lab Entry Social History Tobacco Use Types Packs/Day Years Used Date Smoking Tobacco: Every Day Cigarettes 1.5 81.9 Started: 02/12/1982 Smokeless Tobacco: Never Alcohol Use Standard Drinks/Week Comments Not Currently 0 (1 standard drink = 0.6 oz pur e alcohol) rarely [facility] Utilities Answer Date Recorded In the past 12 months has [employer], gas, oil, or water [employer] threatened to shut off services in your [...] [facility] place to live 08/15/2023 Comments No [...] accepted: Orders * Telephone Encounter - Liat Ambriz RJacquelinN. - 10/12/2023 10:18 AM CDT SUBJECTIVE CHIEF [...] been scanned into the patient record via [employer], and the CBC results are as noted below. Hemoglobin: 14.0 Hematocrit: 42.4 WBC: 1.30 ANC: 0.10 Platelets: 261 Please note: Are there additional labs reported on the outside report? No documented in this encounter Plan of Treatment Upcoming Encounters Date Type Department Care Team (Latest Contact Info) Description 02/11/2024 10:30 AM CYBER SECURITY Appointment Department of Laboratory Medicine and Pathology, [facility], in [place], [place] 200 [place] [phone] Aníbal Reece APRN, C.N.P., M.S.N. 200 [place] [phone] 02/11/2024 12:15 PM CYBER SECURITY Appointment Department of Radiology, [facility], in [address] [phone] Aníbal Reece APRN, C.NJacquelinP., M.S.N. [address] [place] [phone] 02/19/2024 8:15 AM CYBER SECURITY Clinical Communication Virtual Review in [place], [place] 200 [place] [address] 02/20/2024 8:30 AM CYBER SECURITY Office Visit Division of Hematology in [address] [phone] Eric Renner M.D. [address] [place] [phone] 02/20/2024 9:00 AM CYBER SECURITY Education Division of Hematology in [address] [phone] Aníbal Reece APRN, C.N.P., M.S.N. [address] [place] [phone] documented as of this encounter Procedures Procedure Name Priority Date/Time Associated Diagnosis Comments HEMATOLOGY/ONCOLOGY - BLOOD, EXTERNAL LAB RESULTS Routine 10/11/2023 documented in this encounter Results * Hematology/Oncology - Blood, External Lab Results (10/11/2023) EXT Hemoglobin 14 OTHER (SPECIFY IN SECURITY SALES MANAGER) EXT Hematocrit 42.4 OTHER (SPECIFY IN SECURITY SALES MANAGER) EXT WBC 1.30 OTHER (SPE CIFY IN SECURITY SALES MANAGER) EXT Absolute Neutrophil Count 0.10 OTHER (SPECIFY IN SECURITY SALES MANAGER) EXT Lymphs Absolute 0.8 OTHER (SPECIFY IN SECURITY SALES MANAGER) EXT Platelet Count 261 OTHER (SPECIFY IN SECURITY SALES MANAGER) Blood 10/11/2023 us Historical Provider LAB BLOOD NON ADD-ON Final R esult OTHER (SPECIFY IN SECURITY SALES MANAGER) N/A documented in this encounter Visit Diagnoses Not on filedocumented in this encounter Additional Health Concerns Infection Onset Date Last Indicated Resolved Time Protective Environment 09/19/2023 09/19/2023 documented as of this encounter Care Teams Farm Implement Mechanic Relationship Specialty Start Date End Date Elsewhere, Pcp PCP - General Internal Medicine 08/21/23 documented as of this encounter
--- OUTSIDE RECORDS SUMMARY | 2024-01-17 19:42 | XMS_ITS | Encounter Summary ---
Author Organization [facility] Address [address] [place] [address] Care Team Providers Care Shrimp Pond Laborer Name Role Phone Elsewhere, Pcp Primary Care Provider Unavailabl e Encounter Details Date Type Department Care Team (Late st Contact Info) Description 11/01/2023 Orders Only Division of Hematology in [place], [place] [address] [place] [address] External, Ordering Provider, Alonzo Social History Tobacco Use Types Packs/Day Years Used Date Smoking Tobacco: Every Day Cigarettes 1.5 81.9 Started: 02/12/1982 Smokeless Tobacco: Never Alcohol Use Standard Drinks/Week Comments Not Currently 0 (1 standard drink = 0.6 oz pur e alcohol) rarely [facility] Utilities Answer Date Recorded In the [...] Answer Date Recorded Employment status Unemployed/not in [employer] paid workforce but seeking employment 08/15/2023 Housing Stability Answer Date Recorded What is your living situation today? I have a [facility] place to live 08/15/2023 Comments No Sex [...] (Latest Contact Info) Description 02/11/2024 10:30 AM SAGGER SOAK Appointment Department of Laboratory Medicine and Pathology, [facility] in [place], [place] [address] [place] [phone] Aníbal Reece APRN, C.N.P., M.S.N. [address] [place] [phone] 02/11/2024 12:15 PM SAGGER SOAK Appointment Department of Radiology, [facility] in [place], [place] [address] [place] [phone] Aníbal Reece APRN, C.N.P., M.S.N. [address] [place] [phone] 02/19/2024 8:15 AM SAGGER SOAK Clinical Communication Virtual Review in [place], [place] 200 [place] [address] 02/20/2024 8:30 AM SAGGER SOAK Office Visit Division of Hematology in [place], [place] [address] [place] [address] Eric Renner M.D. [address] [place] [address] 02/20/2024 9:00 AM SAGGER SOAK Education Division of Hematology in [place], [place] [address] [place] [phone] Aníbal Reece APRN, C.N.P., M.S.N. [address] [place] [phone] documented as of this encounter Procedures Procedure Name Priority Date/Time Associated Diagnosis Comments CBC WITH DIFFERENTIAL, B Routine 11/01/2023 10:15 AM CDT documented in this encounter Results * (ABNORMAL) CBC with Differential, Blood (11/01/2023 10:15 AM CDT) EXT Leukocytes 1.71(L) 4.50 - 11.00 K/uL [facility] EXT RBC 4.04 4.00 - 5.20 m/uL [facility] EXT Hemoglobin 12.7 12.0 - 16.0 gm/dL [facility] EXT Hematocrit 39.1 33.0 - 51.0 % [facility] EXT MCV 97 80 - 100 fL [facility] EXT Platelet Count 163 140 - 440 K/uL [facility] EXT Neutrophils 0.60(L) 1.7 - 7.0 K/uL [facility] EXT Lymphocytes 0.80(L) 0.90 - 2.90 K/uL [facility] EXT Monocytes 0.20 0.00 - 0.90 K/UL [facility] EXT Eosinophils 0.00 0.00 - 0.50 K/uL [facility] EXT Basophils 0.00 0.00 - 0.30 K/uL [facility] 11/01/2023 10:1 5 AM CDT Narrative [facility] - 11/01/2023 3:56 PM CDT External results verified in Extract by Zulma Ray on 11/02/2023 at 07:49 AM. Virgil us Ordering Provider External M.DJacquelin LAB BLOOD ADD-ON Final Result [facility] [address] [place] [address] documented in this encounter Visit Diagnoses Not on filedocumented in this encounter Additional Health Concerns Infection Onset Date Last Indicated Resolved Time Protective Environment 09/19/2023 09/19/2023 documented as of this encounter Care Teams Shrimp Pond Laborer Relationship Specialty Start Date End Date Elsewhere, Pcp PCP - General Internal Medicine 08/21/23 documented as of this encounter
--- OUTSIDE RECORDS SUMMARY | 2024-01-17 19:42 | XMS_ITS | Encounter Summary ---
Author Organization [facility] Address [address] [place] [address] Care Team Providers Care Campus Security Officer Name Role Phone Elsewhere, Pcp Primary Care Provider Unavailabl e Reason for Visit * Reason Onset Date Comments Rst hem lymph chemo 09/28/2023 Encounter Details Date Type Department Care Team (Latest Contact Info) Description 09/28/2023 Clinical Communication Division of Hematology in [place], [place] [address] [place] [address] Eric Renner M.D. [address] [place] [address] Rst hem lymph chemo Social History Tobacco Use Types Packs/Day Years Used Date Smoking Tobacco: Every Day Cigarettes 1.5 81.9 Started: 02/12/1982 Smokeless Tobacco: Never Alcohol Use Standard Drinks/Week Comments Not Currently 0 (1 standard drink = 0.6 oz pur e alcohol) rarely [facility] Utilities Answer Date Recorded In the past 12 months has [employer], gas, oil, or water [employer] threatened to shut off services in [...] (Latest Contact Info) Description 02/11/2024 10:30 AM FIXED ASSETS ACCOUNTANT Appointment Department of Laboratory Medicine and Pathology, [place], [place] 200 [place] [address] Aníbal Reece APRN, C.N.P., M.S.N. [address] [place] [phone] 02/11/2024 12:15 PM FIXED ASSETS ACCOUNTANT Appointment Department of Radiology, [place], [place] 200 [place] [address] Aníbal Reece APRN, C.N.P., M.S.N. [address] [place] [phone] 02/19/2024 8:15 AM FIXED ASSETS ACCOUNTANT Clinical Communication Virtual Review in [place], [place] 200 [place] [address] 02/20/2024 8:30 AM FIXED ASSETS ACCOUNTANT Office Visit Division of Hematology in [place], [place] [address] [place] [phone] Eric Renner M.D. [address] [place] [phone] 02/20/2024 9:00 AM FIXED ASSETS ACCOUNTANT Education Division of Hematology in [address] [phone] Aníbal Reece, FAVIOLA, C.N.P., M.S.N. [address] [place] [phone] documented as of this encounter Visit Diagnoses Not on filedocumented in this encounter Additional Health Concerns Infection Onset Date Last Indicated Resolved Time Protective Environment 09/19/2023 09/19/2023 documented as of this encounter Care Teams Campus Security Officer Relationship Specialty Start Date End Date Elsewhere, Pcp PCP - General Internal Medicine 08/21/23 documented as of this encounter
--- OUTSIDE RECORDS SUMMARY | 2024-01-17 19:42 | XMS_ITS | Encounter Summary ---
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 200 [place] [address] Phone: tel: fax: Department of Radiology, [facility], in [place], [place] 200 [place] [address] Phone: tel: fax:[phone] Referral ID Status Reason Start Date Expiration Date Visits Re quested Visits Authorized [id number] Closed 11/08/2023 11/07/2024 1 1 Encounter Details Date Type Department Care Team (Latest Contact Info) Description 11/08/2023 1:51 PM CDT - 11/08/2023 11:59 PM CDT Hospital Encounter Department of Radiology, [facility], in [place], [place] [address] [place] [address] Eric Renner M.D. 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 Days 1 through 5 of each cycle. (Prior to chemotherapy if a chemo day) 10 tablet 4 11/09/19 24 documented as of this encounter Plan of Treatment Upcoming Encounters Date Type Department Care Team (Latest Contact Info) Description 02/11/2024 10:30 AM BEEF GRINDER Appointment Department of Laboratory Medicine and Pathology, [place], [place] [address] [place] [phone] Aníbal Reece APRN, C.N.P., M.S.N. [address] [place] [phone] 02/11/2024 12:15 PM BEEF GRINDER Appointment Department of Radiology, [place], [place] [address] [place] [address] Aníbal Reece APRN, C.N.P., M.S.N. [address] [place] [phone] 02/19/2024 8:15 AM BEEF GRINDER Clinical Communication Virtual Review in [place], [place] 200 [place] [address] 02/20/2024 8:30 AM BEEF GRINDER Office Visit Division of Hematology in [address] [phone] Eric Renner M.D. [address] [place] [phone] 02/20/2024 9:00 AM BEEF GRINDER Education Division of Hematology in [address] [phone] Aníbal Reece APRN, C.N.P., M.S.N. [address] [place] [phone] documented as of this encounter Procedures Procedure [...] PM CDT Positive response to interval chemotherapy. [place] response score 2. Narrative 11/08/2023 5:36 PM [...] interval chemotherapy. Deauville response score 2. Eric OCHOA NM PROCEDURES Final Result documented in this [...] documented as of this encounter Care Teams Figurine Maker Relationship Specialty Start Date End Date Elsewhere, Pcp PCP - General Internal Medicine 08/21/23 documented as of this encounter
--- OUTSIDE RECORDS SUMMARY | 2024-01-17 19:42 | XMS_ITS | Encounter Summary ---
Author Organization [facility] Address [address] [place] [address] Care Team Providers Care Welfare Project Manager Name Role Phone Elsewhere, Pcp Primary Care Provider Unavailabl e Encounter Details Date Type Department Care Team (Late st Contact Info) Description 11/14/2023 Orders Only Division of Hematology in [place], [place] [address] [place] [address] External, Ordering Provider, Alonzo Social History Tobacco Use Types Packs/Day Years Used Date Smoking Tobacco: Every Day Cigarettes 1.5 81.9 Started: 02/12/1982 Smokeless Tobacco: Never Alcohol Use Standard Drinks/Week Comments Not Currently 0 (1 standard drink = 0.6 oz pur e alcohol) rarely [facility] Utilities Answer Date Recorded In the [...] Answer Date Recorded Employment status Unemployed/not in [employer] paid workforce but seeking employment 08/15/2023 Housing Stability Answer Date Recorded What is your living situation today? I have a [facility] place to live 08/15/2023 Comments No [...] (Latest Contact Info) Description 02/11/2024 10:30 AM NO BAKE MOLDER Appointment Department of Laboratory Medicine and Pathology, [facility] in [place], [place] [address] [place] [phone] Aníbal Reece APRN, C.N.P., M.S.N. [address] [place] [phone] 02/11/2024 12:15 PM NO BAKE MOLDER Appointment Department of Radiology, [facility] in [place], [place] [address] [place] [phone] Aníbal Reece APRN, C.N.P., M.S.N. [address] [place] [phone] 02/19/2024 8:15 AM NO BAKE MOLDER Clinical Communication Virtual Review in [place], [place] 200 [place] [address] 02/20/2024 8:30 AM NO BAKE MOLDER Office Visit Division of Hematology in [place], [place] [address] [place] [address] Eric Renner M.D. [address] [place] [address] 02/20/2024 9:00 AM NO BAKE MOLDER Education Division of Hematology in [place], [place] [address] [place] [phone] Aníbal Reece APRN, C.N.P., M.S.N. [address] [place] [phone] documented as of this encounter Procedures Procedure Name Priority Date/Time Associated Diagnosis Comments CBC WITH DIFFERENTIAL, B Routine 11/14/2023 10:00 AM CDT documented in this encounter Results * CBC with Differential, Blood (11/14/2023 10:00 AM CDT) EXT Leukocytes 5.80 4.50 - 11.00 K/uL [facility] EXT RBC 4.09 4.00 - 5.20 m/uL [facility] EXT Hemoglobin 13.0 12.0 - 16.0 gm/dL [facility] EXT Hematocrit 39.1 33.0 - 51.0 % [facility] EXT MCV 96 80 - 100 fL [facility] EXT Platelet Count 219 140 - 440 K/uL [facility] EXT Neutrophils 4.80 1.7 - 7.0 K/uL [facility] EXT Lymphocytes 0.90 0.90 - 2.90 K/uL [facility] EXT Monocytes 0.10 0.00 - 0.90 K/UL [facility] EXT Eosinophils 0.07 0.00 - 0.50 K/uL [facility] EXT Basophils 0.02 0.00 - 0.30 K/uL [facility] 11/14/2023 10:0 0 AM CDT Narrative [facility] - 11/14/2023 2:19 PM CDT External results verified in Extract by Zulma Ray on 11/14/2023 at 02:10 PM. Virgil us Ordering Provider External M.DJacquelin LAB BLOOD ADD-ON Final Result [facility] [address] [place] [address] documented in this encounter Visit Diagnoses Not on filedocumented in this encounter Additional Health Concerns Infection Onset Date Last Indicated Resolved Time Protective Environment 09/19/2023 09/19/2023 documented as of this encounter Care Teams Welfare Project Manager Relationship Specialty Start Date End Date Elsewhere, Pcp PCP - General Internal Medicine 08/21/23 documented as of this encounter
--- OUTSIDE RECORDS SUMMARY | 2024-01-17 19:42 | XMS_ITS | Encounter Summary ---
Author Organization [facility] Address [address] [place] [address] Care Team Providers Care Second Time Worker Name Role Phone Elsewhere, Pcp Primary Care Provider Unavailabl e Encounter Details Date Type Department Care Team (Late st Contact Info) Description 10/17/2023 Orders Only [facility] [address] [place] [phone] Sal Keen, Pharm.D., R.Ph. 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) Social History Tobacco Use Types Packs/Day Years Used Date Smoking Tobacco: Every Day Cigarettes 1.5 81.9 Started: 02/12/1982 Smokeless Tobacco: Never Alcohol Use Standard Drinks/Week Comments Not Currently 0 (1 standard drink = 0.6 oz pur e alcohol) rarely [facility] Utilities Answer Date Recorded In the past 12 months has [employer], gas, oil, or water [employer] threatened to shut off services in your [...] (Latest Contact Info) Description 02/11/2024 10:30 AM BULK COOLERS INSTALLER Appointment Department of Laboratory Medicine and Pathology, [place], [place] [address] [place] [address] Aníbal Reece APRN, C.N.P., M.S.N. [address] [place] [phone] 02/11/2024 12:15 PM BULK COOLERS INSTALLER Appointment Department of Radiology, [place], [place] 200 [place] [address] Aníbal Reece APRN, C.N.P., M.S.N. [address] [place] [phone] 02/19/2024 8:15 AM BULK COOLERS INSTALLER Clinical Communication Virtual Review in [place], [place] 200 [place] [phone] 02/20/2024 8:30 AM BULK COOLERS INSTALLER Office Visit Division of Hematology in [place], [place] [address] [place] [phone] Eric Renner M.D. [address] [place] [phone] 02/20/2024 9:00 AM BULK COOLERS INSTALLER Education Division of Hematology in [address] [phone] Aníbal Reece, FAVIOLA, C.N.P., M.S.N. 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
--- OUTSIDE RECORDS SUMMARY | 2024-01-17 19:42 | XMS_ITS | Encounter Summary ---
Author Organization [facility] Address [address] [place] [address] Care Team Providers Care Heading And Priming Tool Setter Name Role Phone Elsewhere, Pcp Primary Care Provider Unavailabl e Encounter Details Date Type Department Care Team (Late st Contact Info) Description 09/27/2023 Clinical Communication Division of Hematology in [place], [place] [address] [place] [address] Yennifer Montoya, Pharm.D., R.Ph., [facility] [address] [place] [address] Social History Tobacco Use Types Packs/Day Years Used Date Smoking Tobacco: Every Day Cigarettes 1.5 81.9 Started: 02/12/1982 Smokeless Tobacco: Never Alcohol Use Standard Drinks/Week Comments Not Currently 0 (1 standard drink = 0.6 oz pur e alcohol) rarely C Utilities Answer Date Recorded In the past 12 months has e [employer], gas, oil, or water [employer] threatened to shut off services in your [...] [facility] 08/15/2023 Comments No Sex [...] Contact Info) Description 02/11/2024 10:30 AM DIRECTOR OF REIMBURSEMENT Appointment Department of Laboratory Medicine and Pathology, [place], [place] [address] [place] [address] Aníbal Reece APRN, C.N.P., M.S.N. [address] [place] [phone] 02/11/2024 12:15 PM DIRECTOR OF REIMBURSEMENT Appointment Department of Radiology, [facility] in [place], [place] [address] [place] [address] Aníbal Reece APRN, C.N.P., M.S.N. [address] [place] [phone] 02/19/2024 8:15 AM DIRECTOR OF REIMBURSEMENT Clinical Communication Virtual Review in [place], [place] 200 [place] [address] 02/20/2024 8:30 AM DIRECTOR OF REIMBURSEMENT Office Visit Division of Hematology in [place], [place] [address] [place] [phone] Eric Renner M.D. [address] [place] [phone] 02/20/2024 9:00 AM DIRECTOR OF REIMBURSEMENT Education Division of Hematology in [place], [place] [address] [place] [phone] Aníbal Reece, FAVIOLA, C.N.P., M.S.N. [address] [place] [phone] documented as of this encounter Visit Diagnoses Not on filedocumented in this encounter Additional Health Concerns Infection Onset Date Last Indicated Resolved Time Protective Environment 09/19/2023 09/19/2023 documented as of this encounter Care Teams Heading And Priming Tool Setter Relationship Specialty Start Date End Date Elsewhere, Pcp PCP - General Internal Medicine 08/21/23 documented as of this encounter
--- OUTSIDE RECORDS SUMMARY | 2024-01-17 19:42 | XMS_ITS | Encounter Summary ---
Author Organization [facility] Address [address] [place] [address] Care Team Providers Care Icu Staff Nurse Name Role Phone Elsewhere, Pcp Primary Care Provider Unavailabl e Reason for Visit * Reason Onset Date Comments Med Question 09/20/2023 Encounter Details Date Type Department Care Team (Late st Contact Info) Description 09/20/2023 Clinical Communication Division of Hematology in [address] [place] [address] Eric Renner M.D. [address] [place] [address] Med Question Social History Tobacco Use Types Packs/Day Years Used Date Smoking Tobacco: Every Day Cigarettes 1.5 81.9 Started: 02/12/1982 Smokeless Tobacco: Never Alcohol Use Standard Drinks/Week Comments Not Currently 0 (1 standard drink = 0.6 oz pur e alcohol) rarely [facility] Utilities Answer Date Recorded In the past 12 months has [employer] gas, oil, or water [email or web address] threatened to shut off services in your [...] your living situation today? I have a [facility] place to live 08/15/2023 Comments No Sex [...] Contact Info) Description 02/11/2024 10:30 AM MEDICAL LEAD Appointment Department of Laboratory Medicine and Pathology, [place], [place] 200 [place] [address] Aníbal Reece APRN, C.N.P., M.S.N. [address] [place] [phone] 02/11/2024 12:15 PM MEDICAL LEAD Appointment Department of Radiology, [place], [place] 200 [place] [address] Aníbal Reece APRN, C.N.P., M.S.N. [address] [place] [phone] 02/19/2024 8:15 AM MEDICAL LEAD Clinical Communication Virtual Review in 200 [place] [address] 02/20/2024 8:30 AM MEDICAL LEAD Office Visit Division of Hematology in [address] [place] [phone] Eric Renner M.D. [address] [place] [phone] 02/20/2024 9:00 AM MEDICAL LEAD Education Division of Hematology in [address] [phone] Aníbal Reece, FAVIOLA, C.N.P., M.S.N. [address] [place] [phone] documented as of this encounter Visit Diagnoses Diagnosis Sciatica Left documented in this encounter Additional Health Concerns Infection Onset Date Last Indicated Resolved Time Protective Environment 09/19/2023 09/19/2023 documented as of this encounter Care Teams Icu Staff Nurse Relationship Specialty Start Date End Date Elsewhere, Pcp PCP - General Internal Medicine 08/21/23 documented as of this encounter
--- OUTSIDE RECORDS SUMMARY | 2024-01-17 19:42 | XMS_ITS | Encounter Summary ---
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 200 [place] [address] Phone: tel: fax: [facility] Referral ID Status Reason Start Date Expiration Date V isits Requested Visits Authorized [id number] Authorized 09/19/2023 07/08/2024 7 99 Encounter Details Date Type Department Care Team (Late st Contact Info) Description 10/19/2023 7:30 AM CDT Infusion Department of Oncology in [place], [place] [address] [place] [phone] Eric Renner M.D. [address] [place] [phone] Diffuse Large B Cell Lymphoma Lymph Nodes [...] your living situation today? I have a [facility] place to live 08/15/2023 Comments No [...] (Latest Contact Info) Description 02/11/2024 10:30 AM SPIRAL RUNNER Appointment Department of Laboratory Medicine and Pathology, [facility] in [address] [phone] Aníbal Reece APRN, C.NMaggi., M.S.N. [address] [place] [phone] 02/11/2024 12:15 PM SPIRAL RUNNER Appointment Department of Radiology, [facility] in [address] [phone] Aníbal Reece APRN, C.N.Ad., M.S.N. [address] [place] [phone] 02/19/2024 8:15 AM SPIRAL RUNNER Clinical Communication Virtual Review in [address] [phone] 02/20/2024 8:30 AM SPIRAL RUNNER Office Visit Division of Hematology in [address] [phone] Eric Renner M.D. [address] [place] [phone] 02/20/2024 9:00 AM SPIRAL RUNNER Education Division of Hematology in [address] [phone] Aníbal Reece APRN, C.N.P., M.S.N. 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) New Bag 10/19/2023 12:25 PM CDT 1,500 mg 700 mL/hr diphenhydrAMINE injection 25 mg (BenadryL) 25 mg, intravenous, Once, On Sun10/19/23 at 0815, For 1 dose, Administer 30 minutes prior to riTUXimab.Indications:Diff use Large B Cell Lymphoma Lymph Nodes Of Multiple Sites (HCC) Given 10/19/2023 8:10 AM CDT 25 mg [...] Lymph Nodes Of Multiple Sites (HCC) Given 10/19/2023 12:11 PM CDT 100 mg [...] Nodes Of Multiple Sites (HCC) New Bag 10/19/2023 8:15 AM CDT 150 mg 500 mL/hr palonosetron injection 0.25 mg (Aloxi) 0.25 mg, intravenous, Once, On Sun10/19/23 at 1015, For 1 doseIndications: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
--- OUTSIDE RECORDS SUMMARY | 2024-01-17 19:42 | XMS_ITS | Encounter Summary ---
Author Organization [facility] Address [address] [place] [address] Care Team Providers Care Integration Software Engineer Name Role Phone Elsewhere, Pcp Primary Care Provider Unavailabl e Reason for Visit * Reason Onset Date Comments Results 11/01/2023 Encounter Details Date Type Department Care Team ([facility] st Contact Info) Description 11/01/2023 Clinical Communication Division of Hematology in [place], [place] [address] [place] [address] Eric Renner M.D. [address] [place] [address] Results Social History Tobacco Use Types Packs/Day Years Used Date Smoking Tobacco: Every Day Cigarettes 1.5 81.9 Started: 02/12/1982 Smokeless Tobacco: Never Alcohol Use Standard Drinks/Week Comments Not Currently 0 (1 standard drink = 0.6 oz pur e alcohol) rarely [facility] Utilities Answer Date Recorded In the past 12 months has [employer], gas, oil, or water [employer] threatened to shut off services in your [...] living situation today? I have a [facility] place to live 08/15/2023 Comments No Sex [...] (Latest Contact Info) Description 02/11/2024 10:30 AM NET PROGRAMMER ANALYST Appointment Department of Laboratory Medicine and Pathology, [place], [place] 200 [place] [address] Aníbal Reece APRN, C.N.P., M.S.N. [address] [place] [phone] 02/11/2024 12:15 PM NET PROGRAMMER ANALYST Appointment Department of Radiology, [place], [place] 200 [place] [address] Aníbal Reece APRN, C.N.P., M.S.N. [address] [place] [phone] 02/19/2024 8:15 AM NET PROGRAMMER ANALYST Clinical Communication Virtual Review in [place], [place] 200 [place] [phone] 02/20/2024 8:30 AM NET PROGRAMMER ANALYST Office Visit Division of Hematology in [place], [place] [address] [place] [phone] Eric Renner M.D. [address] [place] [phone] 02/20/2024 9:00 AM NET PROGRAMMER ANALYST Education Division of Hematology in [address] [phone] Aníbal Reece, FAVIOLA, C.N.P., M.S.N. [address] [place] [phone] documented as of this encounter Visit Diagnoses Not on filedocumented in this encounter Additional Health Concerns Infection Onset Date Last Indicated Resolved Time Protective Environment 09/19/2023 09/19/2023 documented as of this encounter Care Teams Integration Software Engineer Relationship Specialty Start Date End Date Elsewhere, Pcp PCP - General Internal Medicine 08/21/23 documented as of this encounter
--- OUTSIDE RECORDS SUMMARY | 2024-01-17 19:42 | XMS_ITS | Encounter Summary ---
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 200 [place] [address] Phone: tel: fax: [facility] Referral ID Status Reason Start Date Expiration Date V isits Requested Visits Authorized [id number] Authorized 09/19/2023 07/08/2024 7 99 Encounter Details Date Type Department Care Team (Late st Contact Info) Description 11/09/2023 9:00 AM CDT Office Visit Division of Hematology in [place], [place] [address] [place] [phone] Eric Renner M.D. 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 I have a [facility] place to live 08/15/2023 Comments No [...] 123 11/09/2023 8:42 AM CDT Temperature 36.1 C (97 F) 11/09/2023 8:42 AM CDT Respiratory Rate - [...] stage IPI24: 33% event risk in 24mo BALANCE WHEEL HAND FILER-IPI: 3 (intermediate risk) R-IPI: 2 (good prognosis) [...] the left hip. Images not reviewed by [facility] Radiology. August 23, 2023: CT-guided needle [...] (Latest Contact Info) Description 02/11/2024 10:30 AM GRADES 1 THROUGH 5 TEACHER Appointment Department of Laboratory Medicine and Pathology, [address] [phone] Aníbal Reece APRN, C.NMaggi., M.S.N. [address] [place] [phone] 02/11/2024 12:15 PM GRADES 1 THROUGH 5 TEACHER Appointment Department of Radiology, [facility] in [address] [phone] Aníbal Reece APRN, C.N.P., M.S.N. [address] [place] [phone] 02/19/2024 8:15 AM GRADES 1 THROUGH 5 TEACHER Clinical Communication Virtual Review in [address] [phone] 02/20/2024 8:30 AM GRADES 1 THROUGH 5 TEACHER Office Visit Division of Hematology in [place], [place] [address] [place] [phone] Eric Renner M.D. [address] [place] [phone] 02/20/2024 9:00 AM GRADES 1 THROUGH 5 TEACHER Education Division of Hematology in [place], [place] [address] [place] [phone] Aníbal Reece, FAVIOLA, C.N.P., M.S.N. 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
--- OUTSIDE RECORDS SUMMARY | 2024-01-17 19:42 | XMS_ITS | Encounter Summary ---
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 200 [place] [address] Phone: tel: fax: [facility] Referral ID Status Reason Start Date Expiration Date V isits Requested Visits Authorized [id number] Authorized 09/19/2023 07/08/2024 7 99 Encounter Details Date Type Department Care Team (Latest Contact Info) Description 10/17/2023 9:30 AM CDT - 10/17/2023 11:59 PM CDT Hospital Encounter Department of Laboratory Medicine and Pathology, [facility] in [place], [place] [address] [place] [phone] Eric Renner M.D. 200 [place] [phone] Diffuse Large B Cell Lymphoma Lymph Nodes [...] In the past 12 months has e [employer], gas, oil, or water company threatened to [...] living situation today? I have a [facility] place to live 08/15/2023 Comments [...] Duoneb. Length of need: 99 months 2 nystatin (Mycostatin) 100,000 unit/mL suspension Take 500,000 [...] OF 200 MG PER 24 HOURS. 3 Ventolin HFA 90 mcg/actuation inhaler INHALE 1 [...] (Latest Contact Info) Description 02/11/2024 10:30 AM NAIL PULLER Appointment Department of Laboratory Medicine and Pathology, [facility] in [place], [place] [address] [place] [phone] Aníbal Reece APRN, C.N.P., M.S.N. [address] [place] [phone] 02/11/2024 12:15 PM NAIL PULLER Appointment Department of Radiology, [facility] in [place], [place] [address] [place] [phone] Aníbal Reece APRN, C.N.P., M.S.N. [address] [place] [phone] 02/19/2024 8:15 AM NAIL PULLER Clinical Communication Virtual Review in [place], [place] 200 [place] [address] 02/20/2024 8:30 AM NAIL PULLER Office Visit Division of Hematology in [address] [phone] Eric Renner M.D. [address] [place] [phone] 02/20/2024 9:00 AM NAIL PULLER Education Division of Hematology in [address] [phone] Aníbal Reece APRN, C.N.P., M.S.N. [address] [place] [address] documented as of this encounter Procedures Procedure [...] Monzon M.D. LAB BLOOD ADD-ON Final Result [facility] [address] [place] [address], [facility] [address] [place] [address] * (ABNORMAL) CBC with Differential, Blood (10/17/2023 [...] Monzon M.D. LAB BLOOD ADD-ON Final Result [facility] [address] [place] [address], [facility] DTL [facility] [address] [place] [address] DHPM 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
--- OUTSIDE RECORDS SUMMARY | 2024-01-17 19:42 | XMS_ITS | Encounter Summary ---
Author Organization [facility] Address [address] [place] [address] Care Team Providers Care Airline Reservation Agent Name Role Phone Elsewhere, Pcp Primary Care Provider Unavailabl e Encounter Details Date Type Department Care Team (Late st Contact Info) Description 10/23/2023 Orders Only Division of Hematology in [place], [place] [address] [place] [address] Eric Renner M.D. 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 I have a [facility] place to live 08/15/2023 Comments [...] (Latest Contact Info) Description 02/11/2024 10:30 AM ENGLISH AS A SECOND LANGUAGE TEACHER Appointment Department of Laboratory Medicine and Pathology, [place], [place] 200 [place] [address] Aníbal Reece APRN, C.N.P., M.S.N. [address] [place] [phone] 02/11/2024 12:15 PM ENGLISH AS A SECOND LANGUAGE TEACHER Appointment Department of Radiology, [place], [place] 200 [place] [address] Aníbal Reece APRN, C.N.P., M.S.N. [address] [place] [phone] 02/19/2024 8:15 AM ENGLISH AS A SECOND LANGUAGE TEACHER Clinical Communication Virtual Review in [place], [place] 200 [place] [address] 02/20/2024 8:30 AM ENGLISH AS A SECOND LANGUAGE TEACHER Office Visit Division of Hematology in [place], [place] [address] [place] [phone] Eric Renner M.D. [address] [place] [phone] 02/20/2024 9:00 AM ENGLISH AS A SECOND LANGUAGE TEACHER Education Division of Hematology in [address] [phone] Aníbal Reece, FAVIOLA, C.N.P., M.S.N. 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
--- OUTSIDE RECORDS SUMMARY | 2024-01-17 19:42 | XMS_ITS | Encounter Summary ---
Author Organization [facility] Address [address] [place] [address] Care Team Providers Care Tire Groover Name Role Phone Elsewhere, Pcp Primary Care Provider Unavailabl e Encounter Details Date Type Department Care Team (Late st Contact Info) Description 10/17/2023 Orders Only [facility] [address] [place] [phone] Ahmet Martinez, Pharm.D., R.Ph. [address] [place] [phone] Social History Tobacco Use Types Packs/Day Years Used Date Smoking Tobacco: Every Day Cigarettes 1.5 81.9 Started: 02/12/1982 Smokeless Tobacco: Never Alcohol Use Standard Drinks/Week Comments Not Currently 0 (1 standard drink = 0.6 oz pur e alcohol) rarely [facility] Utilities Answer Date Recorded In the past 12 months has e [employer], gas, oil, or water [employer] threatened to shut off services in your [...] today? I have a [facility] place to live 08/15/2023 Comments [...] (Latest Contact Info) Description 02/11/2024 10:30 AM SUPPLIER QUALITY MANAGER Appointment Department of Laboratory Medicine and Pathology, [place], [place] [address] [place] [address] Aníbal Reece APRN, C.N.P., M.S.N. [address] [place] [phone] 02/11/2024 12:15 PM SUPPLIER QUALITY MANAGER Appointment Department of Radiology, [facility] in [place], [place] [address] [place] [address] Aníbal Reece APRN, C.N.P., M.S.N. [address] [place] [phone] 02/19/2024 8:15 AM SUPPLIER QUALITY MANAGER Clinical Communication Virtual Review in [place], [place] [address] [place] [address] 02/20/2024 8:30 AM SUPPLIER QUALITY MANAGER Office Visit Division of Hematology in [place], [place] [address] [place] [phone] Eric Renner M.D. [address] [place] [phone] 02/20/2024 9:00 AM SUPPLIER QUALITY MANAGER Education Division of Hematology in [place], [place] [address] [place] [phone] Aníbal Reece, FAVIOLA, C.N.P., M.S.N. [address] [place] [phone] documented as of this encounter Visit Diagnoses Not on filedocumented in this encounter Additional Health Concerns Infection Onset Date Last Indicated Resolved Time Protective Environment 09/19/2023 09/19/2023 documented as of this encounter Care Teams Tire Groover Relationship Specialty Start Date End Date Elsewhere, Pcp PCP - General Internal Medicine 08/21/23 documented as of this encounter
--- OUTSIDE RECORDS SUMMARY | 2024-01-17 19:42 | XMS_ITS | Encounter Summary ---
Author Organization [facility] Address [address] [place] [address] Care Team Providers Care School Bus Driver Name Role Phone Elsewhere, Pcp Primary Care Provider Unavailabl e Reason for Visit * Reason Comments Med Refill Encounter Details Date Type Department Care Team (Late st Contact Info) Description 10/17/2023 Refill Division of Hematology in [place], [place] [address] [place] [address] Eric Renner M.D. [address] [place] [address] Med Refill Social History Tobacco Use Types Packs/Day Years Used Date Smoking Tobacco: Every Day Cigarettes 1.5 81.9 Started: 02/12/1982 Smokeless Tobacco: Never Alcohol Use Standard Drinks/Week Comments Not Currently 0 (1 standard drink = 0.6 oz pur e alcohol) rarely [facility] Utilities Answer Date Recorded In the past 12 months has [email or web address], gas, oil, or water [employer] threatened to shut off services in your [...] your living situation today? I have a [facility] place to live 08/15/2023 Comments No [...] (Latest Contact Info) Description 02/11/2024 10:30 AM MARINE OILER Appointment Department of Laboratory Medicine and Pathology, [place], [place] 200 [place] [address] Aníbal Reece APRN, C.N.P., M.S.N. [address] [place] [phone] 02/11/2024 12:15 PM MARINE OILER Appointment Department of Radiology, [place], [place] 200 [place] [address] Aníbal Reece APRN, C.N.P., M.S.N. [address] [place] [phone] 02/19/2024 8:15 AM MARINE OILER Clinical Communication Virtual Review in [place], [place] 200 [place] [phone] 02/20/2024 8:30 AM MARINE OILER Office Visit Division of Hematology in [place], [place] [address] [place] [phone] Eric Renner M.D. [address] [place] [phone] 02/20/2024 9:00 AM MARINE OILER Education Division of Hematology in [place], [place] [address] [place] [phone] Aníbal Reece, FAVIOLA, C.N.P., M.S.N. 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
--- OUTSIDE RECORDS SUMMARY | 2024-01-17 19:42 | XMS_ITS | Encounter Summary ---
Author Organization [facility] Address [address] [place] [address] Care Team Providers Care Engine Mechanic Name Role Phone Elsewhere, Pcp Primary Care Provider Unavailabl e Reason for Visit * Reason Onset Date Comments Rst hem lymph chemo 10/22/2023 Encounter Details Date Type Department Care Team (Latest Contact Info) Description 10/22/2023 Clinical Communication Division of Hematology in [place], [place] [address] [place] [address] Eric Renner M.D. [address] [place] [address] Rst hem lymph chemo Social History Tobacco Use Types Packs/Day Years Used Date Smoking Tobacco: Every Day Cigarettes 1.5 81.9 Started: 02/12/1982 Smokeless Tobacco: Never Alcohol Use Standard Drinks/Week Comments Not Currently 0 (1 standard drink = 0.6 oz pur e alcohol) rarely [facility] Utilities Answer Date Recorded In the past 12 months has e [employer], gas, oil, or water [employer] threatened to shut off services in [...] living situation today? I have a [facility] place to live 08/15/2023 Comments No [...] (Latest Contact Info) Description 02/11/2024 10:30 AM ODD JOB LABORER Appointment Department of Laboratory Medicine and Pathology, [place], [place] 200 [place] [address] Aníbal Reece APRN, C.N.P., M.S.N. [address] [place] [phone] 02/11/2024 12:15 PM ODD JOB LABORER Appointment Department of Radiology, [place], [place] 200 [place] [address] Aníbal Reece APRN, C.N.P., M.S.N. [address] [place] [phone] 02/19/2024 8:15 AM ODD JOB LABORER Clinical Communication Virtual Review in [place], [place] 200 [place] [address] 02/20/2024 8:30 AM ODD JOB LABORER Office Visit Division of Hematology in [place], [place] [address] [place] [phone] Eric Renner M.D. [address] [place] [phone] 02/20/2024 9:00 AM ODD JOB LABORER Education Division of Hematology in [address] [phone] Aníbal Reece, FAVIOLA, C.N.P., M.S.N. [address] [place] [phone] documented as of this encounter Visit Diagnoses Not on filedocumented in this encounter Additional Health Concerns Infection Onset Date Last Indicated Resolved Time Protective Environment 09/19/2023 09/19/2023 documented as of this encounter Care Teams Engine Mechanic Relationship Specialty Start Date End Date Elsewhere, Pcp PCP - General Internal Medicine 08/21/23 documented as of this encounter
--- OUTSIDE RECORDS SUMMARY | 2024-01-17 19:42 | XMS_ITS | Encounter Summary ---
Author Organization [facility] Address [address] [place] [address] Care Team Providers Care Import/Export Agent Name Role Phone Elsewhere, Pcp Primary Care Provider Unavailabl e Reason for Visit * Reason Onset Date Comments Results 11/02/2023 Encounter Details Date Type Department Care Team (Late st Contact Info) Description 11/02/2023 Clinical Communication Division of Hematology in [place], [place] [address] [place] [address] Eric Renner M.D. [address] [place] [address] Results Social History Tobacco Use Types Packs/Day Years Used Date Smoking Tobacco: Every Day Cigarettes 1.5 81.9 Started: 02/12/1982 Smokeless Tobacco: Never Alcohol Use Standard Drinks/Week Comments Not Currently 0 (1 standard drink = 0.6 oz pur e alcohol) rarely [facility] Utilities Answer Date Recorded In the past 12 months has [employer], gas, oil, or water [employer] threatened to shut off services in your [...] your living situation today? I have a [facility] place to live 08/15/2023 Comments No [...] (Latest Contact Info) Description 02/11/2024 10:30 AM CAN SLIDER Appointment Department of Laboratory Medicine and Pathology, [facility] in [address] [phone] Aníbal Reece APRN, C.N.P., M.S.N. [address] [place] [phone] 02/11/2024 12:15 PM CAN SLIDER Appointment Department of Radiology, [facility] in [place], [place] [address] [place] [phone] Aníbal Reece APRN, C.N.P., M.S.N. [address] [place] [phone] 02/19/2024 8:15 AM CAN SLIDER Clinical Communication Virtual Review in [place], [place] 200 [place] [address] 02/20/2024 8:30 AM CAN SLIDER Office Visit Division of Hematology in [place], [place] [address] [place] [address] Eric Renner M.D. [address] [place] [phone] 02/20/2024 9:00 AM CAN SLIDER Education Division of Hematology in [place], [place] [address] [place] [address] Aníbal Reece APRN, C.N.P., M.S.N. [address] [place] [phone] documented as of this encounter Visit Diagnoses Not on filedocumented in this encounter Additional Health Concerns Infection Onset Date Last Indicated Resolved Time Protective Environment 09/19/2023 09/19/2023 documented as of this encounter Care Teams Import/Export Agent Relationship Specialty Start Date End Date Elsewhere, Pcp PCP - General Internal Medicine 08/21/23 documented as of this encounter
--- OUTSIDE RECORDS SUMMARY | 2024-01-17 19:42 | XMS_ITS | Encounter Summary ---
Author Organization [facility] Address [address] [place] [address] Care Team Providers Care Candy Spreader Name Role Phone Elsewhere, Pcp Primary Care Provider Unavailabl e Reason for Visit * Reason Onset Date Comments FORM/total and permanent disability loan program 09/28/2023 Encounter Details Date Type Department Care Team (Latest Contact Info) Description 09/28/2023 Clinical Communication Division of Hematology in [place], [place] [address] [place] [address] Eric Renner M.D. [address] [place] [address] FORM/total and permanent disability loan program Social History Tobacco Use Types Packs/Day Years Used Date Smoking Tobacco: Every Day Cigarettes 1.5 81.9 Started: 02/12/1982 Smokeless Tobacco: Never Alcohol Use Standard Drinks/Week Comments Not Currently 0 (1 standard drink = 0.6 oz pur e alcohol) rarely [facility] Utilities Answer Date Recorded In the past 12 months has th e [employer], gas, oil, or water [employer] threatened to shut off services in your [...] your living situation today? I have a [facility] place to live 08/15/2023 [...] (Latest Contact Info) Description 02/11/2024 10:30 AM CORPORATE DIRECTOR TALENT ASSESSMENT Appointment Department of Laboratory Medicine and Pathology, [place], [place] 200 [place] [address] Aníbal Reece APRN, C.N.P., M.S.N. [address] [place] [phone] 02/11/2024 12:15 PM CORPORATE DIRECTOR TALENT ASSESSMENT Appointment Department of Radiology, [place], [place] 200 [place] [address] Aníbal Reece APRN, C.N.P., M.S.N. [address] [place] [phone] 02/19/2024 8:15 AM CORPORATE DIRECTOR TALENT ASSESSMENT Clinical Communication Virtual Review in [place], [place] 200 [place] [address] 02/20/2024 8:30 AM CORPORATE DIRECTOR TALENT ASSESSMENT Office Visit Division of Hematology in [place], [place] [address] [place] [phone] Eric Renner M.D. [address] [place] [phone] 02/20/2024 9:00 AM CORPORATE DIRECTOR TALENT ASSESSMENT Education Division of Hematology in [place], [place] [address] [place] [phone] Aníbal Reece, FAVIOLA, C.N.P., M.S.N. [address] [place] [phone] documented as of this encounter Visit Diagnoses Not on filedocumented in this encounter Additional Health Concerns Infection Onset Date Last Indicated Resolved Time Protective Environment 09/19/2023 09/19/2023 documented as of this encounter Care Teams Candy Spreader Relationship Specialty Start Date End Date Elsewhere, Pcp PCP - General Internal Medicine 08/21/23 documented as of this encounter
--- OUTSIDE RECORDS SUMMARY | 2024-01-17 19:42 | XMS_ITS | Encounter Summary ---
Author Organization [facility] Address [address] [place] [address] Care Team Providers Care Flight Mechanic Name Role Phone Elsewhere, Pcp Primary Care Provider Unavailabl e Reason for Visit * Reason Onset Date Comments Previsit Preparation 11/07/2023 TAMRA DD Encounter Details Date Type Department Care Team (Latest Contact Info) Description 11/07/2023 10:00 AM CDT Clinical Communication Virtual Review in [place], [place] 200 [place] [address] Previsit Preparation (TAMRA DD) Social History Tobacco Use Types Packs/Day Years Used Date Smoking Tobacco: Every Day Cigarettes 1.5 81.9 Started: 02/12/1982 Smokeless Tobacco: Never Tobacco Cessation:Ready to Q uit: Not Asked; Counseling Given: Not Answered Alcohol Use Standard Drinks/Week Comments Not Currently 0 (1 standard drink = 0.6 oz pur e alcohol) rarely [facility] Utilities Answer Date Recorded In the past 12 months has e [employer], gas, oil, or water [employer] threatened to shut off services in your [...] a [facility] place to live 08/15/2023 Comments No [...] (Latest Contact Info) Description 02/11/2024 10:30 AM DIE CUTTER DIAMOND Appointment Department of Laboratory Medicine and Pathology, [place], [place] [address] [place] [address] Aníbal Reece APRN, C.N.P., M.S.N. [address] [place] [phone] 02/11/2024 12:15 PM DIE CUTTER DIAMOND Appointment Department of Radiology, [place], [place] [address] [place] [address] Aníbal Reece APRN, C.N.P., M.S.N. [address] [place] [phone] 02/19/2024 8:15 AM DIE CUTTER DIAMOND Clinical Communication Virtual Review in [place], [place] 200 [place] [address] 02/20/2024 8:30 AM DIE CUTTER DIAMOND Office Visit Division of Hematology in [place], [place] [address] [place] [phone] Eric Renner M.D. [address] [place] [phone] 02/20/2024 9:00 AM DIE CUTTER DIAMOND Education Division of Hematology in [place], [place] [address] [place] [phone] Aníbal Reece APRN, C.N.P., M.S.N. [address] [place] [phone] documented as of this encounter Visit Diagnoses Not on filedocumented in this encounter Additional Health Concerns Infection Onset Date Last Indicated Resolved Time Protective Environment 09/19/2023 09/19/2023 documented as of this encounter Care Teams Flight Mechanic Relationship Specialty Start Date End Date Elsewhere, Pcp PCP - General Internal Medicine 08/21/23 documented as of this encounter
--- OUTSIDE RECORDS SUMMARY | 2024-01-17 19:43 | XMS_ITS | Encounter Summary ---
Author Organization [facility] Address [address] [place] [address] Care Team Providers Care Iv Rn Name Role Phone Elsewhere, Pcp Primary Care Provider Unavailabl e Reason for Visit * Reason Onset Date Comments Echo Scheduling 09/12/2023 Encounter Details Date Type Department Care Team (Latest Contact Info) Description 09/12/2023 Clinical Communication Division of Hematology in [place], [place] [address] [place] [address] Eric Renner M.D. [address] [place] [address] Echo Scheduling Social History Tobacco Use Types Packs/Day Years Used Date Smoking Tobacco: Every Day Cigarettes 1.5 81.9 Started: 02/12/1982 Smokeless Tobacco: Never Alcohol Use Standard Drinks/Week Comments Not Currently 0 (1 standard drink = 0.6 oz pur e alcohol) rarely [facility] Utilities Answer Date Recorded In the past 12 months has [facility], gas, oil, or water [employer] threatened to shut off services in your [...] (Latest Contact Info) Description 02/11/2024 10:30 AM AIRCRAFT MOTOR MECHANIC Appointment Department of Laboratory Medicine and Pathology, [place], [place] 200 [place] [address] Aníbal Reece APRN, C.N.P., M.S.N. [address] [place] [phone] 02/11/2024 12:15 PM AIRCRAFT MOTOR MECHANIC Appointment Department of Radiology, [place], [place] 200 [place] [address] Aníbal Reece APRN, C.N.P., M.S.N. [address] [place] [phone] 02/19/2024 8:15 AM AIRCRAFT MOTOR MECHANIC Clinical Communication Virtual Review in [place], [place] 200 [place] [phone] 02/20/2024 8:30 AM AIRCRAFT MOTOR MECHANIC Office Visit Division of Hematology in [place], [place] [address] [place] [phone] Eric Renner M.D. [address] [place] [phone] 02/20/2024 9:00 AM AIRCRAFT MOTOR MECHANIC Education Division of Hematology in [place], [place] [address] [place] [phone] Aníbal Reece, FAVIOLA, C.N.P., M.S.N. [address] [place] [phone] documented as of this encounter Visit Diagnoses Not on filedocumented in this encounter Additional Health Concerns Infection Onset Date Last Indicated Resolved Time Protective Environment 09/19/2023 09/19/2023 documented as of this encounter Care Teams Iv Rn Relationship Specialty Start Date End Date Elsewhere, Pcp PCP - General Internal Medicine 08/21/23 documented as of this encounter
--- OUTSIDE RECORDS SUMMARY | 2024-01-17 19:43 | XMS_ITS | Encounter Summary ---
Author Organization [facility] Address [address] [place] [address] Care Team Providers Care Material Flow Analyst Name Role Phone Elsewhere, Pcp Primary Care Provider Unavailabl e Reason for Visit * Reason Onset Date Comments Med Question 09/14/2023 Encounter Details Date Type Department Care Team (Late st Contact Info) Description 09/14/2023 Clinical Communication Division of Hematology in [place], [place] [address] [place] [address] Eric Renner M.D. [address] [place] [address] Med Question Social History Tobacco Use Types Packs/Day Years Used Date Smoking Tobacco: Every Day Cigarettes 1.5 81.9 Started: 02/12/1982 Smokeless Tobacco: Never Alcohol Use Standard Drinks/Week Comments Not Currently 0 (1 standard drink = 0.6 oz pur e alcohol) rarely [facility] Utilities Answer Date Recorded In the past 12 months has [employer], gas, oil, or water [employer] threatened to shut off services in your [...] your living situation today? I have a [facility] place to live 08/15/2023 Comments [...] (Latest Contact Info) Description 02/11/2024 10:30 AM TITLE SUPERVISOR Appointment Department of Laboratory Medicine and Pathology, [place], [place] 200 [place] [address] Aníbal Reece APRN, C.N.P., M.S.N. [address] [place] [phone] 02/11/2024 12:15 PM TITLE SUPERVISOR Appointment Department of Radiology, [place], [place] 200 [place] [address] Aníbal Reece APRN, C.N.P., M.S.N. [address] [place] [phone] 02/19/2024 8:15 AM TITLE SUPERVISOR Clinical Communication Virtual Review in [place], [place] [address] [place] [address] 02/20/2024 8:30 AM TITLE SUPERVISOR Office Visit Division of Hematology in [place], [place] [address] [place] [phone] Eric Renner M.D. [address] [place] [phone] 02/20/2024 9:00 AM TITLE SUPERVISOR Education Division of Hematology in [place], [place] [address] [place] [phone] Aníbal Reece, FAVIOLA, C.N.P., M.S.N. [address] [place] [phone] documented as of this encounter Visit Diagnoses Not on filedocumented in this encounter Additional Health Concerns Infection Onset Date Last Indicated Resolved Time Protective Environment 09/19/2023 09/19/2023 documented as of this encounter Care Teams Material Flow Analyst Relationship Specialty Start Date End Date Elsewhere, Pcp PCP - General Internal Medicine 08/21/23 documented as of this encounter
--- OUTSIDE RECORDS SUMMARY | 2024-01-17 19:43 | XMS_ITS | Encounter Summary ---
Author Organization [facility] Address [address] [place] [address] Care Team Providers Care Territory Account Executive Name Role Phone Elsewhere, Pcp Primary Care Provider Unavailabl e Reason for Visit * Reason Onset Date Comments NEW HEM LYMPH CHEMO 09/18/2023 Encounter Details Date Type Department Care Team (Latest Contact Info) Description 09/18/2023 Clinical Communication Division of Hematology in [place], [place] [address] [place] [address] Eric Renner M.D. [address] [place] [address] NEW HEM LYMPH CHEMO Social History Tobacco Use Types Packs/Day Years Used Date Smoking Tobacco: Every Day Cigarettes 1.5 81.9 Started: 02/12/1982 Smokeless Tobacco: Never Alcohol Use Standard Drinks/Week Comments Not Currently 0 (1 standard drink = 0.6 oz pur e alcohol) rarely [facility] Utilities Answer Date Recorded In the past 12 months has e [employer], gas, oil, or water [employer] threatened to shut off services in your [...] your living situation today? I have a [facility] place to live 08/15/2023 Comments [...] (Latest Contact Info) Description 02/11/2024 10:30 AM APPLICATIONS SCIENTIST Appointment Department of Laboratory Medicine and Pathology, [place], [place] 200 [place] [address] Aníbal Reece APRN, C.N.P., M.S.N. [address] [place] [phone] 02/11/2024 12:15 PM APPLICATIONS SCIENTIST Appointment Department of Radiology, [place], [place] 200 [place] [address] Aníbal Reece APRN, C.N.P., M.S.N. [address] [place] [phone] 02/19/2024 8:15 AM APPLICATIONS SCIENTIST Clinical Communication Virtual Review in [place], [place] 200 [place] [address] 02/20/2024 8:30 AM APPLICATIONS SCIENTIST Office Visit Division of Hematology in [place], [place] [address] [place] [phone] Eric Renner M.D. [address] [place] [phone] 02/20/2024 9:00 AM APPLICATIONS SCIENTIST Education Division of Hematology in [place], [place] [address] [place] [phone] Aníbal Reece APRN, C.N.P., M.S.N. [address] [place] [phone] documented as of this encounter Visit Diagnoses Not on filedocumented in this encounter Additional Health Concerns Infection Onset Date Last Indicated Resolved Time Protective Environment 09/19/2023 09/19/2023 documented as of this encounter Care Teams Territory Account Executive Relationship Specialty Start Date End Date Elsewhere, Pcp PCP - General Internal Medicine 08/21/23 documented as of this encounter
--- OUTSIDE RECORDS SUMMARY | 2024-01-17 19:43 | XMS_ITS | Encounter Summary ---
Author Organization [facility] Address [address] [place] [address] Care Team Providers Care Library Customer Service Clerk Name Role Phone Elsewhere, Pcp Primary Care Provider Unavailabl e Reason for Visit * Reason Onset Date Comments MARY/FORMS 09/14/2023 Encounter Details Date Type Department Care Team (Late st Contact Info) Description 09/14/2023 Clinical Communication Division of Hematology in [place], [place] [address] [place] [address] Eric Renner M.D. [address] [place] [address] MARY/FORMS Social History Tobacco Use Types Packs/Day Years Used Date Smoking Tobacco: Every Day Cigarettes 1.5 81.9 Started: 02/12/1982 Smokeless Tobacco: Never Alcohol Use Standard Drinks/Week Comments Not Currently 0 (1 standard drink = 0.6 oz pur e alcohol) rarely [facility] Utilities Answer Date Recorded In the past 12 months has e [employer], gas, oil, or water [employer] threatened to shut off services in your [...] your living situation today? I have a [facility] place to live 08/15/2023 Comments No [...] (Latest Contact Info) Description 02/11/2024 10:30 AM HR RECRUITER Appointment Department of Laboratory Medicine and Pathology, [place], [place] 200 [place] [address] Aníbal Reece APRN, C.N.P., M.S.N. [address] [place] [phone] 02/11/2024 12:15 PM HR RECRUITER Appointment Department of Radiology, [place], [place] 200 [place] [address] Aníbal Reece APRN, C.N.P., M.S.N. [address] [place] [phone] 02/19/2024 8:15 AM HR RECRUITER Clinical Communication Virtual Review in [place], [place] 200 [place] [address] 02/20/2024 8:30 AM HR RECRUITER Office Visit Division of Hematology in [place], [place] [address] [place] [phone] Eric Renner M.D. [address] [place] [phone] 02/20/2024 9:00 AM HR RECRUITER Education Division of Hematology in [address] [phone] Aníbal Reece, FAVIOLA, C.N.P., M.S.N. [address] [place] [phone] documented as of this encounter Visit Diagnoses Not on filedocumented in this encounter Additional Health Concerns Infection Onset Date Last Indicated Resolved Time Protective Environment 09/19/2023 09/19/2023 documented as of this encounter Care Teams Library Customer Service Clerk Relationship Specialty Start Date End Date Elsewhere, Pcp PCP - General Internal Medicine 08/21/23 documented as of this encounter
--- OUTSIDE RECORDS SUMMARY | 2024-01-17 19:43 | XMS_ITS | Encounter Summary ---
Author Organization [facility] Address [address] [place] [id number] Care Team Providers Care Lap Welder Name Role Phone Elsewhere, Pcp Primary Care Provider Unavailabl e Reason for Visit * Reason Onset Date Comments MARY/FORMS 09/11/2023 Encounter Details Date Type Department Care Team (Late st Contact Info) Description 09/11/2023 Clinical Communication Division of Hematology in [place], [place] [address] [place] [address] Eric Renner M.D. [address] [place] [address] MARY/FORMS Social History Tobacco Use Types Packs/Day Years Used Date Smoking Tobacco: Every Day Cigarettes 1.5 81.9 Started: 02/12/1982 Smokeless Tobacco: Never Alcohol Use Standard Drinks/Week Comments Not Currently 0 (1 standard drink = 0.6 oz pur e alcohol) rarely [facility] Utilities Answer Date Recorded In the past 12 months has e [employer], gas, oil, or water [employer] threatened to shut off services in your [...] (Latest Contact Info) Description 02/11/2024 10:30 AM PINSETTER MECHANIC HELPER Appointment Department of Laboratory Medicine and Pathology, [place], [place] [address] [place] [address] Aníbal Reece APRN, C.N.P., M.S.N. [address] [place] [phone] 02/11/2024 12:15 PM PINSETTER MECHANIC HELPER Appointment Department of Radiology, [place], [place] [address] [place] [address] Aníbal Reece APRN, C.N.P., M.S.N. [address] [place] [phone] 02/19/2024 8:15 AM PINSETTER MECHANIC HELPER Clinical Communication Virtual Review in [place], [place] 200 [place] [address] 02/20/2024 8:30 AM PINSETTER MECHANIC HELPER Office Visit Division of Hematology in [place], [place] [address] [place] [phone] Eric Renner M.D. [address] [place] [phone] 02/20/2024 9:00 AM PINSETTER MECHANIC HELPER Education Division of Hematology in [address] [phone] Aníbal Reece, FAVIOLA, C.N.P., M.S.N. [address] [place] [phone] documented as of this encounter Visit Diagnoses Not on filedocumented in this encounter Additional Health Concerns Infection Onset Date Last Indicated Resolved Time Protective Environment 09/19/2023 09/19/2023 documented as of this encounter Care Teams Lap Welder Relationship Specialty Start Date End Date Elsewhere, Pcp PCP - General Internal Medicine 08/21/23 documented as of this encounter
--- OUTSIDE RECORDS SUMMARY | 2024-01-17 19:43 | XMS_ITS | Clinical Summary ---
Author Organization [facility] Address [place], [place] [address] Care Team Providers Care Software Product Specialist Name Role Phone Porfirio Orosco PA-C Primary Care Provider [phone] Allergies No known active allergies Medications Medication [...] Active budesonide-glycopyr -formoterol (Breztri Aerosphere) 160-9-4.8 mcg/actuation HFAAIndications:CESSPOOL CLEANER D with chronic bronchitis (HC) Inhale 2 [...] 08/28/2015 Vaginal inclusion cyst, both anterior and solder sprayer ior vagina 08/19/2014 Mixed incontinence 08/19/2014 RUQ [...] behavior 01/17/2011 04/01/2019 Chest pain, unspecified 06/11/2008 12/0 09/2015 DOS (diffuse esophageal spasm) 06/11/2008 01/20/2016 Encounters Date Type Department Care Team Description 11/21/2023 9:50 AM CDT Ancillary Procedure [facility] [address] [place] [address] 11/21/2023 Telephone MOOVIA [facility] [address] [facility] [address] [place] [address] Aamir Vanessa MD Heart Problem from Last 3 Months Immunizations Name Administration Dates Next Due COVID-19 vaccine ([employer] NTDisenia 30mcg/0.3mL) GIUSEPPE GILL 08/24/2020,08/03/2020 Hepatitis B (Adult) 07/11/2016,09/25/2015,2012 Hepatitis B, [...] 112 10/05/2021 12:00 PM CDT Temperature 36.7 C (98.1 F) 05/06/2019 9:20 AM CDT Respiratory Rate 16 03/28/2019 8:00 AM CASE MANAGER Oxygen Saturation 96% 10/05/2021 12:00 PM CDT [...] Procedure Name Priority Date/Time Associated Diagnosis Comments ECHO TTE COMPLETE WO CONTRAST Routine 11/21/2023 11:58 AM CDT Status post administration of cardiotoxic chemotherapy LIPID PANEL W REFLEX MEASURED LDL Routine 09/30/2021 8:33 AM CDT Controlled type 2 diabetes mellitus without complication, without long-term current use of insulin (HC) XR MAMMO NESHA BILAT DIAG Routine 08/03/2020 2:26 PM CDT Breast pain, left COLONOSCOPY 02/06/2017 1:06 PM CASE MANAGER from Last 3 Months or Most Recently Relevant to Health Maintenance Results * ECHO TTE COMPLETE WO CONTRAST (11/21/2023 11:58 AM CDT) AORTIC VALVE MEAN PG 8 mmHg EJECTION FRACTION 59 % LVEDD 4.9 cm EJECTION FRACTION 55 - 60% Anatomical Region Laterality Modality Ultrasound 11/21/2023 10:5 0 AM CDT Narrative 11/21/2023 3:30 PM CDT ECHOCARDIOGRAM ANA JORDAN : 1970 53 years Study Date: 11/21/2023 10:50:56 AM Gender: F BP: 104/67 mmHg Height: 163.00 cm BSA: 1.84 m Weight: 78.00 kg Tech: MITA Referring MD: MARICARMEN WEIR Site: [facility] Reading Location: [facility] Patient Location: Inpatient. Procedure: 2D, Color Doppler and Spectral Doppler. Indication for study: Status post administration of cardiotoxic chemotherapy, Possible Endocarditis Cardiac Rhythm: Regular.Study quality: Technically limited. Final Impressions: 1. Technically limited exam. 2. Normal LV size, normal wall thickness, normal global systolic function with an estimated EF of 55 - 60%. 3. Right ventricular cavity size is normal, global systolic RV function is normal. 4. Posterior leaflet of the mitral valve is calcified. Mild mitral insufficiency. Consider MARLEE if there's concern for endocarditis. 5. Strain value not reported due to suboptimal endocardial definition. Comparison Compared to prior exam images of 2009: Global longitudinal strain is normal at - 16.6. Small echodensity on mitral valve is new since last study 15 years prior. Chamber Sizes and Function Normal left ventricular size, normal wall thickness, normal global systolic function with an estimated EF of 55 - 60%. Regional wall motion assessment not well-visualized. Left atrial size is normal. Right ventricular cavity size is normal, global systolic RV function is normal. The right atrium is normal. Right atrial volume index is 21 ml/m . Right atrial area is 14 cm . The pulmonary artery is of normal size and origin. The sinus of Valsalva is normal sized. The ascending aorta is normal sized. Valves, RV Pressures and Diastolic Function The aortic valve is not well visualized , no stenosis and no regurgitation. The mitral valve is sclerotic, mild mitral regurgitation. Spectral Doppler shows Grade 1 pattern of LV diastolic filling. The tricuspid valve is normal in structure. Tricuspid regurgitation is trace regurgitation. Unable to assess right ventricular systolic pressure. The pulmonic valve is normal. No pulmonary regurgitation. Masses, Effusion, Shunts There is no pericardial effusion. The inferior vena cava is normal sized, respiratory size variation greater than 50%. No left to right shunting was detected by limited color flow Doppler interrogation of the interatrial septum. MEASUREMENTS AND CALCULATIONS 2-D Measurements and LV Function: LVID (d) 4.9 cm LV FS% (2D) 34 % LVID (s) 3.2 cm LVOT diameter 2.0 cm IVS (d) 0.7 cm HR 87 bpm LVPW (d) 0.9 cm LA Vol index 23 ml/m2 Ao Sinus 3.1 cm RA Vol index 21 ml/m2 Asc Ao 2.8 cm RA area 14 cm LA 4.0 cm RV Max 4C (d) 3.4 cm Diastology: Mitral Tissue Doppler E Peak 1.2 m/s e', Septum 0.08 m/s A Peak 1.2 m/s e', Lateral 0.08 m/s E/A 1.0 E/e' Average 14.75 DT 223 msec Aortic Valve: Vmax 1.7 m/s KIERSTEN (V) 2.30 cm VTI 0.36 m KIERSTEN (I) 2.05 cm LVOT V max 1.2 m/s Max PG 12 mmHg LVOT VTI 0.23 m Mean PG 8 mmHg SV 75 ml Dim Index 0.63 SV index 41 ml/m CO 6.5 l/min AV Ejection Time 0.26 sec CI 3.5 l/min/m AV Flow Rate 289 ml/s Mitral Valve: MVA 3.4 cm MV P 1/2 65 msec Tricuspid Valve and estimated PA pressures: TAPSE 2.1 cm . This study was interpreted by an [facility] accredited facility. CC: Med/Surg - IP [facility] (med records) [facility]. Final Procedure Note Denilson Malin MD - 11/21/2023 ECHOCARDIOGRAM ANA JORDAN : 1970 53 years Study Date: 11/21/2023 10:50:56 AM Gender: F BP: 104/67 mmHg Height: 163.00 cm BSA: 1.84 m Weight: 78.00 kg Tech: MITA Referring MD: MARICARMEN WEIR Site: [facility] Reading Location: [facility] Patient Location: Inpatient. Procedure: 2D, Color Doppler and Spectral Doppler. Indication for study: Status post administration of cardiotoxicchemotherapy, Possible Endocarditis Cardiac Rhythm: Regular.Study quality: Technically limited. Final Impressions: 1. Technically limited exam. 2. Normal LV size, normal wall thickness, normal global systolic functionwith an estimated EF of 55 - 60%. 3. Right ventricular cavity size is normal, global systolic RV functionis normal. 4. Posterior leaflet of the mitral valve is calcified. Mild mitralinsufficiency. Consider MARLEE if there's concern for endocarditis. 5. Strain value not reported due to suboptimal endocardial definition. Comparison Compared to prior exam images of 2009: Global longitudinal strain isnormal at - 16.6. Small echodensity on mitral valve is new since last study15 years prior. Chamber Sizes and Function Normal left ventricular size, normal wall thickness, normal globalsystolic function with an estimated EF of 55 - 60%. Regional wall motionassessment not well- visualized. Left atrial size is normal. Rightventricular cavity size is normal, global systolic RV function is normal.The right atrium is normal. Right atrial volume index is 21 ml/m . Rightatrial area is 14 cm . The pulmonary artery is of normal size and origin.The sinus of Valsalva is normal sized. The ascending aorta is normalsized. Valves, RV Pressures and Diastolic Function The aortic valve is not well visualized , no stenosis and noregurgitation. The mitral valve is sclerotic, mild mitral regurgitation.Spectral Doppler shows Grade 1 pattern of LV diastolic filling. Thetricuspid valve is normal in structure. Tricuspid regurgitation is traceregurgitation. Unable to assess right ventricular systolic pressure. Thepulmonic valve is normal. No pulmonary regurgitation. Masses, Effusion, Shunts There is no pericardial effusion. The inferior vena cava is normal sized,respiratory size variation greater than 50%. No left to right shunting wasdetected by limited color flow Doppler interrogation of the interatrialseptum. MEASUREMENTS AND CALCULATIONS 2-D Measurements and LV Function: LVID (d) 4.9 cm LV FS% (2D) 34 % LVID (s) 3.2 cm LVOT diameter 2.0 cm IVS (d) 0.7 cm HR 87 bpm LVPW (d) 0.9 cm LA Vol index 23 ml/m2 Ao Sinus 3.1 cm RA Vol index 21 ml/m2 Asc Ao 2.8 cm RA area 14 cm LA 4.0 cm RV Max 4C (d) 3.4 cm Diastology: Mitral Tissue Doppler E Peak 1.2 m/s e', Septum 0.08 m/s A Peak 1.2 m/s e', Lateral 0.08 m/s E/A 1.0 E/e' Average 14.75 DT 223 msec Aortic Valve: Vmax 1.7 m/s KIERSTEN (V) 2.30 cm VTI 0.36 m KIERSTEN (I) 2.05 cm LVOT V max 1.2 m/s Max PG 12 mmHg LVOT VTI 0.23 m Mean PG 8 mmHg SV 75 ml Dim Index 0.63 SV index 41 ml/m CO 6.5 l/min AV Ejection Time 0.26 sec CI 3.5 l/min/m AV Flow Rate 289 ml/s Mitral Valve: MVA 3.4 cm MV P 1/2 65 msec Tricuspid Valve and estimated PA pressures: TAPSE 2.1 cm . This study was interpreted by an [facility] accredited facility. CC: Med/Surg - IP [facility], [facility] (med records) [facility]. Final Maricarmen Weir MD ECHO ORD * LIPID PANEL W REFLEX MEASURED LDL (09/30/2021 8:33 AM CDT) [facility] CHOLESTEROL,TOTAL 157 100 - 199 mg/dL 09/30/2021 5:49 PM CDT [facility] TRIGLYCERIDES 105 <150 mg/dL 09/30/2021 5:49 PM CDT [facility] HDL CHOLESTEROL 47 >40 mg/dL 5:49 PM CDT [facility] NON-HDL CHOLESTEROL 110 <145 mg/dl 09/30/2021 5:49 PM CDT [facility] CHOL/HDL RATIO 3.34 <4.50 09/30/2021 5:49 PM CDT [facility] LDL CHOLESTEROL 89 <=130 mg/dL 09/30/2021 5:49 PM CDT [facility] VLDL CHOLESTEROL 21 <=30 mg/dL 09/30/2021 5:49 PM CDT [facility] PROVIDER ORDERED STATUS RANDOM 09/30/2021 5:49 PM CDT [facility] Blood BLOOD SPECIMEN / Unknown Venipuncture / Unknown 09/30/2021 8:33 AM CDT 09/30/2021 8:34 AM CDT Umberto Mauricio MD CHEMISTRY [facility] [address] [place] [address], [place] * XR MAMMO NESHA BILAT DIAG [...] Denilson Huynh MD @08/03/2020 3:40:38 PM / BARBARA:steve Narrative 08/03/2020 4:48 PM CDT PATIENTS: You will also receive a letter with your examination results in an easy to read format. If you have questions about your results, please contact your referring provider. DIGITAL DIAGNOSTIC BILATERAL MAMMOGRAM USING TOMOSYNTHESIS AND COMPUTER-AIDED DETECTION, 08/03/2020 CLINICAL HISTORY: LEFT breast pain. COMPARISON: 07/12/2018, 01/29/2017. TECHNIQUE: Digital BILATERAL mammogram in four projections. Tomosynthesis and CAD utilized. BREAST COMPOSITION: The breasts are almost entirely fatty. FINDINGS: Normal breast tissue. No solid masses or architectural distortion. No suspicious calcifications or adenopathy. Umberto Mauricio MD MAMMO * COLONOSCOPY (02/06/2017 1:06 PM CASE MANAGER) 02/06/2017 1:06 PM CASE MANAGER Narrative Transcriptions Alysha Guzman MD - 02/09/2017 8:11 AM CST Endoscopy Patient Name: July Alina Procedure Date: 02/06/2017 Gender: Female Date of [...] Comments 06/11/2008 2:09 AM 06/11/2008 10:00 PM Care Teams Software Product Specialist Relationship Specialty Start Date End Date Porfirio Orosco PA-C [address] [place] [phone] PCP - General Physician Metal Gauge Maker 11/21/23
[2024-01-17 20:02] LABS: Basophils Percent Auto 0.3 % (0.0-3.0); Eosinophils Percent Auto 0.6 % (0.0-7.0); Hematocrit 31.1 % (33.0-51.0); Hemoglobin* 10.3 gm/dL (12.0-16.0); Immature Granulocytes Pct Auto 13.2 %; Lymphocytes Percent Auto 16.1 % (20-44); Mean Corpuscular HGB Conc 33 gm/dL (32-36); Mean Corpuscular Hemoglobin 35 pg (26-34); Mean Corpuscular Volume 105 fL (80-100); Neutrophils Percent Auto 67.8 % (42.0-72.0); Platelet Count* 84 K/uL (140-440); RDW Coefficient of Variation % 16.7 % (11.5-15.5); Red Blood Count 2.95 m/uL (4.00-5.20); White Blood Count* 3.42 K/uL (4.50-11.00)
[2024-01-17 20:05] LABS: Slide Review Reflex No
[2024-01-17 20:22] LABS: Chloride* 104 mmol/L (96-114); Potassium* 3.1 mmol/L (3.6-5.1); Sodium* 137 mmol/L (135-149)
--- NOTE | 2024-01-17 20:23 | ED.GENADULT ---
HPI - General Adult General Date Seen: 01/17/24 Chief complaint: Neuro Symptoms/Altered Deficit Stated complaint: memory issues Time Seen by Provider: 01/17/24 18:54 Source: patient and family Mode of arrival: ambulatory Limitations: no limitations History of Present Illness HPI narrative: Patient is a 53-year-old brought in by family because of concerns about abrupt onset of memory loss. 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 Her last imaging was at the end of October, and she is due for repeat imaging at the end of January. According to family, full body PET scan did not show any other areas of significant involvement, specifically no prior involvement of the spine or brain. Family says that patient had gone out for a cigarette and when she came back in she did not remember events from today, she was repeating questions. They feel she has improved slightly from that but is not back to normal. Patient tells me repeatedly about back pain that developed yesterday, she says it was in her mid upper back yesterday and today is more in her low back. She denies prior history of back pain. She does take oxycodone for cancer related pain and has taken 2 of those today, she says that is her usual dose. She does have a mild headache, she denies fever. There has not been any nausea vomiting and family has not noticed any focal neurologic changes. Patient seems mostly frustrated to be here as she does not feel anything is wrong. Related Data Home Medications ?Medication ?Instructions ?Recorded ?Confirmed atorvastatin 80 mg tablet 80 mg PO DAILY 11/21/23 01/17/24 sumatriptan succinate 100 mg tablet 100 mg PO Q2H PRN migraine headache 11/21/23 01/17/24 Previous Rx's ?Medication ?Instructions ?Recorded gabapentin 600 mg tablet 600 mg PO TID #270 tabs 03/15/23 ipratropium 0.5 mg-albuterol 3 mg 3 ml inhalation TID #90 mL 03/15/23 (2.5 mg base)/3 mL nebulization soln metformin 500 mg tablet 1,000 mg (2 x 500 mg) PO BID #360 03/15/23 tabs budesonide-formoterol HFA 160 2 puff inhalation BID #10.2 grams 06/18/24 mcg-4.5 mcg/actuation aerosol inhaler (Symbicort) nystatin 100,000 unit/mL oral 500,000 unit (5 mL) PO QID #120 mL 10/04/23 suspension acetaminophen 500 mg tablet 500 mg PO Q6H PRN #60 tabs 11/23/23 (Acetaminophen Extra Strength) cefpodoxime 200 mg tablet 200 mg PO BID #14 tabs 11/23/23 bupropion HCl 100 mg tablet,12 hr 100 mg PO QAM #90 tabs 11/27/23 sustained-release ibuprofen 800 mg tablet 800 mg PO TID PRN pain #60 tabs 12/06/23 albuterol sulfate 90 mcg/actuation 2 puff inhalation Q4H PRN 12/28/23 aerosol inhaler (Ventolin HFA) shortness of breath or wheezing #8.5 grams oxycodone 5 mg tablet 5 mg PO Q4-6H PRN pain #60 tabs 12/31/23 lidocaine HCl 2 % mucosal solution 1 applic mucous membrane BID PRN 01/07/24 (Lidocaine Viscous) pain #100 mL tirzepatide 15 mg/0.5 mL 15 mg (0.5 mL) subcut QWEEK #2 mL 01/07/24 subcutaneous pen injector (Mounmitulro) Allergies Allergy/AdvReac Type Severity Reaction Status Date / Time No Known Allergies Allergy Unknown Verified 01/17/24 19:05 Review of Systems Status of ROS: Reports: 10 or more systems reviewed and unremarkable except as noted in History and below [facility] Medical History Encounter for smoking cessation counseling ?Z71.6 - Tobacco abuse counseling (ICD-10) Tachycardia ?R00.0 - Tachycardia, unspecified (ICD-10) Otalgia, right ear ?H92.01 - Otalgia, right ear (ICD-10) CAD (coronary artery disease) ?I25.10 - Atherosclerotic heart disease of [place] coronary artery without angina pectoris (ICD-10) Stomatitis ?K12.1 - Other forms of stomatitis (ICD-10) At risk for inadequate pain control ?Z91.89 - Other specified personal risk factors, not elsewhere classified (ICD-10) Diffuse large B cell lymphoma ?C83.30 - Diffuse large B-cell lymphoma, unspecified site (ICD-10) Rib fracture ?S22.39XA - Fracture of one rib, unspecified side, initial encounter for closed fracture (ICD-10) Tubular adenoma ?D36.9 - Benign neoplasm, unspecified site (ICD-10) Eyelid dermatitis, allergic/contact ?H01.119 - Allergic dermatitis of unspecified eye, unspecified eyelid (ICD-10) Elevated TSH ?R79.89 - Other specified abnormal findings of blood chemistry (ICD-10) Hoarseness of voice ?R49.0 - Dysphonia (ICD-10) Smoking greater than 40 pack years ?F17.210 - Nicotine dependence, cigarettes, uncomplicated (ICD-10) Antipsychotic-induced akathisia ?G25.71 - Drug induced akathisia (ICD-10) ?T43.505A - Adverse effect of unspecified antipsychotics and neuroleptics, initial encounter (ICD-10) Chronic constipation ?K59.09 - Other constipation (ICD-10) DOS (diffuse esophageal spasm) ?K22.4 - Dyskinesia of esophagus (ICD-10) Neuropathy ?G62.9 - Polyneuropathy, unspecified (ICD-10) Migraine ?G43.909 - Migraine, unspecified, not intractable, without status migrainosus (ICD-10) Depression ?F32.A - Depression, unspecified (ICD-10) Hand pain ?M79.643 - Pain in unspecified hand (ICD-10) Gestational diabetes ?O24.419 - Gestational diabetes mellitus in , unspecified control (ICD-10) Diabetes mellitus type 2, controlled ?E11.9 - Type 2 diabetes mellitus without complications (ICD-10) Cigarette smoker ?F17.210 - Nicotine dependence, cigarettes, uncomplicated (ICD-10) COPD (chronic obstructive pulmonary disease) ?J44.9 - Chronic obstructive pulmonary disease, unspecified (ICD-10) Hyperlipemia ?E78.5 - Hyperlipidemia, unspecified (ICD-10) Surgical History Hx of tonsillectomy ?Z90.89 - Acquired absence of other organs (ICD-10) History of repair of anterior cruciate ligament of right knee ?Z98.890 - Other specified postprocedural states (ICD-10) S/P NINA-BSO (total abdominal hysterectomy and bilateral salpingo-oophorectomy) ?Z90.710 - Acquired absence of both cervix and uterus (ICD-10) ?Z90.722 - Acquired absence of ovaries, bilateral (ICD-10) ?Z90.79 - Acquired absence of other genital organ(s) (ICD-10) History of endometriosis ?Z87.42 - Personal history of other diseases of the female genital tract (ICD-10) Hx laparoscopic cholecystectomy ?Z90.49 - Acquired absence of other specified parts of digestive tract (ICD-10) History of carpal tunnel surgery of right wrist ?Z98.890 - Other specified postprocedural states (ICD-10) Hx of hernia repair ?Z98.890 - Other specified postprocedural states (ICD-10) ?Z87.19 - Personal history of other diseases of the digestive system (ICD-10) Hx of section ?Z98.891 - History of uterine scar from previous surgery (ICD-10) History of ear surgery ?Z98.890 - Other specified postprocedural states (ICD-10) Hx of colonoscopy ?Z98.890 - Other specified postprocedural states (ICD-10) Hx of esophagogastroduodenoscopy ?Z98.890 - Other specified postprocedural states (ICD-10) Family History Father Pancreatic cancer Long QT syndrome Brother Bipolar 1 disorder Schizophrenia Mother Coronary artery disease Social History What is your current living situation?: I presently have a place to live Problems where you live: no known problems Problems where you live details: NA In the past 12 months, utilities in danger of being shut off: no In the past 12 mos, have been you worried that your food would run out before you had money to buy more?: never true In the past 12 mos, the food you bought just didn't last and you didn't have money to buy more?: never true Highest level of school completed/degree received: Associate degree: occupational, technical, vocational program Smoking Status: Current every day smoker What tobacco products do you use: cigarettes Smoking packs per day: 1 Smoking cigarettes per day: 20.0 Second hand tobacco smoke exposure: Yes How often do you have a drink containing alcohol: never AUDIT-C Alcohol total score: 0 Non-prescribed substance use: denies use Caffeine: No How often does anyone, including family, friends and others, physically hurt you: never How often does anyone, including family, friends and others, insult or talk down to you: never How often does anyone, including family, friends and others, threaten you with harm: never How often does anyone, including family, friends and others, scream or curse at you: never service: No Exam Narrative: Exam Narrative: Vital signs reviewed In general, an alert, nontoxic woman. Head: Normocephalic, atraumatic. Eyes: Sclera clear. Pupils equal and reactive. Extraocular movements are full. ENT: Mucous membranes moist. Neck: Supple without adenopathy. No meningeal signs. Heart: Regular rate and rhythm without murmur. Lungs: Clear. No increased work of breathing, crackles or wheezes. Abdomen: Soft, nontender to palpation. Extremities: Well perfused, pulses intact. No significant edema. Neurologic: Alert, conversant. Speech fluent, face symmetric. Moves all extremities equally. Gait stable. She tends to give repetitive information, family says she has been asking repetitive questions although she is not doing mount the time of my exam. Skin: Warm, dry well perfused. Affect: Normal. Const: Vital Signs, click to edit/add: Vital Signs - 24 hr 01/17/24 18:57 01/17/24 22:00 01/17/24 23:22 Temperature 98.5 F Pulse Rate [Pulse Oximeter] 106 H 91 Respiratory Rate 14 16 16 Blood Pressure [Ri ght Upper Arm] 107/70 94/61 Pulse Oximetry 97 97 Oxygen Delivery Me thod Room Air Room Air Documenting provider has reviewed patient's vital signs: yes Course Course ED Course: Overall, presentation seems suggestive of transient global amnesia, but with her lymphoma I do think imaging is warranted. MRI of the brain as well as the thoracic and lumbar spine will be ordered with and without contrast. Aside from memory changes, I do not see anything focal on exam. Her CBC shows a white blood cell count of 3.4, hemoglobin is 10.3 and platelets are 84,000 down from 92,000 two thousand at last check. Potassium is little low at 3.1, sodium is normal, BUN creatinine unremarkable. Blood sugar is 110. MRI of the head, thoracic spine and lumbar spine read by Radiology, results reviewed and linked below. Case discussed with Dr. Cruz at [facility], who also reviewed the imaging. She had the radiologist there look at it as well and they feel that the areas of hyperintensity are likely artifactual and do not represent stroke. Patient is improved, she is conversant with me without any difficulties. Symptoms are most suggestive of transient global amnesia. Did discuss her back pain, she had some Toradol and oxycodone here for ongoing back pain. There are some findings in the sacrum on the MRI of her lumbar spine, it is unclear to me whether these are new or old. I have pushed the images to [facility], I have asked patient to check in with her team tomorrow on the no images are there so they can review and decide if they need to do anything more urgently than the imaging she currently has scheduled for February 10. She is comfortable with discharge home, continue current medications, return at any time for acute worsening or new symptoms. Vital Signs Vital signs: Initial Vital Signs Temperature 98.5 F 01/17/24 18:57 Temperature Source Temporal Artery Scan 01/17/24 18:57 Pulse Rate 106 H 01/17/24 18:57 Respiratory Rate 14 01/17/24 18:57 Blood Pressure 107/70 01/17/24 18:57 Blood Pressure Mean 82 01/17/24 18:57 Blood Pressure Position Sitting 01/17/24 18:57 Pulse Oximetry 97 01/17/24 18:57 Oxygen Delivery Method Room Air 01/17/24 18:57 Vital Signs Temperature 98.5 F 01/17/24 18:57 Pulse Rate 106 H 01/17/24 18:57 Respiratory Rate 14 01/17/24 18:57 Blood Pressure 107/70 01/17/24 18:57 Pulse Oximetry 97 01/17/24 18:57 Oxygen Delivery Method Room Air 01/17/24 18:57 Temperature 98.5 F 01/17/24 18:57 Pulse Rate 91 01/17/24 22:00 Respiratory Rate 16 01/17/24 23:22 Blood Pressure 94/61 01/17/24 22:00 Pulse Oximetry 97 01/17/24 22:00 Oxygen Delivery Method Room Air 01/17/24 22:00 Medications Administered Medications: Discontinued Medications Generic Name Dose Route Start Last Admin Trade Name Aramis PRN Reason Stop Dose Admin Ketorolac Tromethamine 15 mg 01/17/24 21:39 01/17/24 21:46 Ketorolac 15 Mg/Ml Inj IVP 01/17/24 21:40 15 mg ONCE ONE Administration Oxycodone HCl 10 mg 01/17/24 22:09 01/17/24 22:13 Oxycodone 5 Mg Tablet PO 01/17/24 22:10 10 mg ONCE ONE Administration Medical Decision Making Lab Data Labs: Lab Results 01/17/24 Range/Units 19:52 WBC 3.42 L (4.50-11.00) K/uL RBC 2.95 L (4.00-5.20) m/uL Hgb 10.3 L (12.0-16.0) gm/dL Hct 31.1 L (33.0-51.0) % MCV 105 H (80-100) fL MCH 35 H (26-34) pg MCHC 33 (32-36) gm/dL RDW Coeff of Randall 16.7 H (11.5-15.5) % Plt Count 84 L (140-440) K/uL Neut % (Auto) 67.8 (42.0-72.0) % Lymph % (Auto) 16.1 L (20-44) % [place] % (Auto) 2.0 (0.0-11.0) % Eos % (Auto) 0.6 (0.0-7.0) % Baso % (Auto) 0.3 (0.0-3.0) % Neut # (Auto) 2.30 (1.7-7.0) K/uL Lymph # (Auto) 0.60 L (0.90-2.90) K/uL [place] # (Auto) 0.10 (0.00-0.90) K/UL Eos # (Auto) 0.00 (0.00-0.50) K/uL Baso # (Auto) 0.00 (0.00-0.30) K/uL Abs Immat Gran (auto) 0.50 H (0.00-0.30) K/uL Imm/Tot Granulo (auto) 13.2 % Sodium 137 (135-149) mmol/L Potassium 3.1 L (3.6-5.1) mmol/L Chloride 104 (96-114) mmol/L Carbon Dioxide 30 (20-32) mmol/L Anion Gap 3 L (7-15) mEq/L BUN 13 (7-30) mg/dL Creatinine 0.4 L (0.5-1.5) mg/dL Estimated Creat Clear 138.84 Estimated GFR 118 ml/min Glucose 110 (60-115) mg/dL Calcium 8.8 (8.4-10.6) mg/dL Imaging Data MR Brain: Attestation: I have reviewed the pertinent imaging results. Radiologist's impression: Patient: [facility] Facility: [facility] Site . Site : 1970 Study: MRI-Head WO/W DOTAREM 15ML-01/17/2024 9:35:04 PM Ordering Physician: Maximino Bajwa Final Report: INDICATION: Headache, memory loss, history of lymphoma. TECHNIQUE: Multisequence multiplanar MRI of the brain prior to and following administration of 15 cc Dotarem gadolinium-based intravenous contrast. COMPARISON: None available. FINDINGS: Two punctate foci of hyperintensity on diffusion-weighted imaging in the left parietal lobe (series 3, image 40) without convincing correlate on the ADC map but mild associated T2/FLAIR hyperintensity. No focus of abnormal enhancement. No abnormal susceptibility artifact. 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 The ventricles are normal in size. Flow voids of the larger intracranial arteries are preserved. Bone marrow signal intensity of the calvarium is within normal limits. The orbits are unremarkable. A left maxillary mucous retention cyst is noted. IMPRESSION: 1. Punctate foci of hyperintensity on diffusion-weighted imaging within the left parietal lobe most consistent with subacute infarcts. No evidence of hemorrhagic conversion. 2. No focus of abnormal enhancement or evidence of [employer] lymphoma. 3. 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 MR - Other: Attestation: I have reviewed the pertinent imaging results. Radiologist's impression: Patient: [facility] Facility: [facility] Site . Site : 1970 Study: MRI-Spine Thoracic WO/W DOTAREM 15ML-01/17/2024 9:35:53 PM Ordering Physician: Maximino Bajwa Final Report: Indication: Back pain, history of lymphoma. Technique: Multisequence multiplanar MRI thoracic spine prior to and following administration 15 cc Dotarem gadolinium based intravenous contrast. Comparison: None available. Findings: Normal vertebral alignment, stature, and intrinsic marrow signal intensity. Mild multilevel disc desiccation loss most pronounced from T6-T9. The thoracic spinal cord is normal signal intensity. No focus of abnormal enhancement is identified. There is no high-grade spinal canal or neural foraminal stenosis. Impression: 1. No evidence of abnormal enhancement within the thoracic spine. 2. Mild multilevel thoracic spondylosis without significant spinal canal or neural foraminal stenosis. Patient: [facility] Facility: [facility] Site . Site : 1970 Study: MRI-Spine Lumbar WO/W DOTAREM 15ML-01/17/2024 9:36:39 PM Ordering Physician: Maximino Bajwa Final Report: INDICATION: Back pain, history of lymphoma. TECHNIQUE: Multisequence multiplanar MRI of the lumbar spine without the use of intravenous contrast. COMPARISON: Correlated with CT abdomen/pelvis dated 11/21/2023. FINDINGS: Normal vertebral alignment and stature. Diffuse T1 hypointensity throughout the left bertha sacrum and pelvis with patchy associated postcontrast enhancement. No focus of abnormal intrathecal enhancement. T12-L1, L1-L2, L2-L3, and L3-L4: No significant spinal canal or neural foraminal stenosis. L4-L5: Mild disc desiccation and height loss. Shallow symmetric disc bulge. Mild facet joint arthrosis. No significant spinal canal or neural foraminal stenosis. L5-S1: Symmetric disc bulge. Moderate facet joint arthrosis. No significant spinal canal or neural foraminal stenosis. IMPRESSION: 1. Diffuse T1 hypointensity and heterogeneous postcontrast enhancement throughout the left bertha sacrum and pelvis. Findings raise concern for a marrow replacing process and further CT characterization could be considered. 2. No focus of abnormal intrathecal enhancement. 3. Symmetric disc bulging and facet joint arthrosis at L4-L5 and L5-S1 without significant spinal canal or neural foraminal stenosis Discharge Plan Discharge Clinical Impression: TGA (transient global amnesia), Lymphoma Patient Disposition: Home, Self-Care Condition: Improved Instructions: Transient Global Amnesia (ED) Additional Instructions: Please check in with your team at [facility] tomorrow. Let them know that you were in the ER, you can tell them that the MRI of your brain was read as unremarkable, but there were some changes in the sacrum that were indeterminate. Images have been sent to [facility] for their review. Continue your current medications, follow-up with [facility] per their recommendations. Return at any time for worsening or new symptoms. Prescriptions: No Action metformin 500 mg tablet 1,000 mg PO BID Qty: 360 3RF gabapentin 600 mg tablet 600 mg PO TID Qty: 270 3RF ipratropium-albuterol 0.5 mg-3 mg(2.5 mg base)/3 mL solution for nebulization 3 ml inhalation TID Qty: 90 11RF bupropion HCl 100 mg tablet sustained-release 12 hr 100 mg PO QAM Qty: 90 3RF atorvastatin 80 mg tablet 80 mg PO DAILY sumatriptan succinate 100 mg tablet 100 mg PO Q2H PRN (Reason: migraine headache) Rx Instructions: ONE TAB AT ONSET OF HEADACHE, MAY REPEAT ONCE IN 2 HRS, MAX 200 MG/24 HRS cefpodoxime 200 mg tablet 200 mg PO BID Qty: 14 0RF Rx Instructions: must administer with a meal/food acetaminophen [Acetaminophen Extra Strength] 500 mg tablet 500 mg PO Q6H PRNQty: 60 0RF budesonide-formoterol [Symbicort] 160-4.5 mcg/actuation HFA aerosol inhaler 2 puff inhalation BID Qty: 10.2 2RF nystatin 100,000 unit/mL suspension 500,000 unit PO QID Qty: 120 0RF Rx Instructions: swish and swallow 4 times a day. ibuprofen 800 mg tablet 800 mg PO TID PRN (Reason: pain) Qty: 60 2RF albuterol sulfate [Ventolin HFA] 90 mcg/actuation HFA aerosol inhaler 2 puff inhalation Q4H PRN (Reason: shortness of breath or wheezing) Qty: 8.5 11RF oxycodone 5 mg tablet 5 mg PO Q4-6H PRN (Reason: pain) Qty: 60 0RF lidocaine HCl [Lidocaine Viscous] 2 % solution 1 applic mucous membrane BID PRN (Reason: pain) Qty: 100 3RF Mounjaro 15 mg/0.5 mL pen injector 15 mg subcut QWEEK Qty: 2 0RF Follow Up/Referrals: Ilana Steve MD [Primary Care Provider] - Stand Alone Forms: MyHealth Info Instructions
[2024-01-17 20:25] LABS: Anion Gap 3 mEq/L (7-15); Blood Urea Nitrogen* 13 mg/dL (7-30); Calcium* 8.8 mg/dL (8.4-10.6); Carbon Dioxide* 30 mmol/L (20-32); Creatinine* 0.4 mg/dL (0.5-1.5); Est. Creatinine Clearance* 138.84; Estimated Glomerular Filt Rate 118 ml/min; Glucose* 110 mg/dL (60-115)
[2024-01-17] MEDS: KETOROLAC 15 MG/ML inj IVP (21:46)
[2024-01-17 22:00] VITALS: BP 94/61; PULSE 91; RESP 16; O2SAT 97
[2024-01-17] MEDS: OXYCODONE 5 MG TABLET 10 MG PO (22:13)
[2024-01-17 23:22] VITALS: RESP 16
== END 2024-01-17 23:23 | disposition home or self-care (01) ==
PROVIDERS: Emergency Provider Emergency Medicine; PCP Emergency Medicine
DX: G45.4 Transient global amnesia (principal); C85.90 Non-Hodgkin lymphoma, unspecified, unspecified site
CPT/HCPCS: 36415; 70553; 72157; 72158; 80048; 85025; 93005; 96374; 99284; A9270; A9575; J1885

== ENCOUNTER 2024-01-18 20:05 | Inpatient (IN) | payer OTHER, SELFPAY ==
[2024-01-18 20:19] VITALS: BP 97/65; PULSE 120; RESP 16; TEMP 38.8; O2SAT 88
--- NOTE | 2024-01-18 21:04 | ED_ITS ---
HPI - General Adult General Date Seen: 01/18/24 Chief complaint: Fever Stated complaint: has a fever, last chemo was last Sunday Time Seen by Provider: 01/18/24 20:41 History of Present Illness HPI narrative: 53-year-old female with a history of diffuse large B-cell lymphoma (diagnosed in July 2023. Localized in her pelvis), currently on chemotherapy, last round was 7 days ago on Sunday. It sounds like she gets her oncology care through [facility]. She also has a past medical history of coronary disease, type 2 diabetes, tobacco use, hyperlipidemia, migraine headaches, Was seen here in the ER yesterday because of abrupt memory loss. She was also having pain in her mid upper back and low back. She is on chronic oxycodone for her cancer related pain. She also had a mild headache. Labs showed a white count low at 3.4 (had been 7.5 on 01/02). Hemoglobin low at 10.3 (had been 11.9 on 01/02) platelet low at 84 (decreased from 92 on 01/02). Potassium was low at 3.1. Sodium normal. BUN and creatinine normal. Glucose 110. MRI of the patient's thoracic spine showed Impression: 1. No evidence of abnormal enhancement within the thoracic spine. 2. Mild multilevel thoracic spondylosis without significant spinal canal or neural foraminal stenosis. MRI lumbar spine IMPRESSION: 1. Diffuse T1 hypointensity and heterogeneous postcontrast enhancement throughout the left bertha sacrum and pelvis. Findings raise concern for a marrow replacing process and further CT characterization could be considered. 2. No focus of abnormal intrathecal enhancement. 3. Symmetric disc bulging and facet joint arthrosis at L4-L5 and L5-S1 without significant spinal canal or neural foraminal stenosis MRI of the patient's brain showed IMPRESSION: 1. Punctate foci of hyperintensity on diffusion-weighted imaging within the left parietal lobe most consistent with subacute infarcts. No evidence of hemorrhagic conversion. 2. 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 3. 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 During her ER visit, Case discussed with Dr. Cruz at [facility], who also reviewed the imaging. She had the radiologist there look at it as well and they feel that the areas of hyperintensity are likely artifactual and do not represent stroke. Patient is improved, she is conversant with me without any difficulties. Symptoms are most suggestive of transient global amnesia. Patient was doing better after workup in the ER yesterday and was discharged home. Today she has been feeling sick again. Throughout the day she has developed worsening diffuse body aches, flare of her chronic low back pain, generalized achiness, headache, nausea. She has had poor oral intake. She started to run a fever and has a temp up to 101.8 here in the ER. She is not coughing but she does feel little bit short of breath. She does not normally use oxygen at home but was hypoxic and placed on nasal cannula here in the ER. She is feeling drained and tired and weak. She has had last urine output than normal. She thinks she might have had a UTI for the past couple of days. She wonders if it might her little bit when she pees and she wonders if her back pain might be due to a kidney problem. She is not coughing. No sore throat. No stuffy nose. She has a headache but knows neck stiffness. Mental status is been normal today. She had a previous admission here for a neutropenic related pneumonia couple months ago, according to her . Related Data Home Medications ?Medication ?Instructions ?Recorded ?Confirmed atorvastatin 80 mg tablet 80 mg PO DAILY 11/21/23 01/17/24 sumatriptan succinate 100 mg tablet 100 mg PO Q2H PRN migraine headache 11/21/23 01/17/24 Previous Rx's ?Medication ?Instructions ?Recorded gabapentin 600 mg tablet 600 mg PO TID #270 tabs 03/15/23 ipratropium 0.5 mg-albuterol 3 mg 3 ml inhalation TID #90 mL 03/15/23 (2.5 mg base)/3 mL nebulization soln metformin 500 mg tablet 1,000 mg (2 x 500 mg) PO BID #360 03/15/23 tabs budesonide-formoterol HFA 160 2 puff inhalation BID #10.2 grams 07/31/23 mcg-4.5 mcg/actuation aerosol inhaler (Symbicort) nystatin 100,000 unit/mL oral 500,000 unit (5 mL) PO QID #120 mL 10/04/23 suspension acetaminophen 500 mg tablet 500 mg PO Q6H PRN #60 tabs 11/23/23 (Acetaminophen Extra Strength) cefpodoxime 200 mg tablet 200 mg PO BID #14 tabs 11/23/23 bupropion HCl 100 mg tablet,12 hr 100 mg PO QAM #90 tabs 11/27/23 sustained-release ibuprofen 800 mg tablet 800 mg PO TID PRN pain #60 tabs 12/06/23 albuterol sulfate 90 mcg/actuation 2 puff inhalation Q4H PRN 12/28/23 aerosol inhaler (Ventolin HFA) shortness of breath or wheezing #8.5 grams oxycodone 5 mg tablet 5 mg PO Q4-6H PRN pain #60 tabs 12/31/23 lidocaine HCl 2 % mucosal solution 1 applic mucous membrane BID PRN 01/07/24 (Lidocaine Viscous) pain #100 mL tirzepatide 15 mg/0.5 mL 15 mg (0.5 mL) subcut QWEEK #2 mL 01/07/24 subcutaneous pen injector (Mounjaro) Allergies Allergy/AdvReac Type Severity Reaction Status Date / Time No Known Allergies Allergy Unknown Verified 01/18/24 22:16 [facility] Medical History Encounter for smoking cessation counseling ?Z71.6 - Tobacco abuse counseling (ICD-10) Tachycardia ?R00.0 - Tachycardia, unspecified (ICD-10) Otalgia, right ear ?H92.01 - Otalgia, right ear (ICD-10) CAD (coronary artery disease) ?I25.10 - Atherosclerotic heart disease of [place] coronary artery without angina pectoris (ICD-10) Stomatitis ?K12.1 - Other forms of stomatitis (ICD-10) At risk for inadequate pain control ?Z91.89 - Other specified personal risk factors, not elsewhere classified (ICD-10) Diffuse large B cell lymphoma ?C83.30 - Diffuse large B-cell lymphoma, unspecified site (ICD-10) Rib fracture ?S22.39XA - Fracture of one rib, unspecified side, initial encounter for closed fracture (ICD-10) Tubular adenoma ?D36.9 - Benign neoplasm, unspecified site (ICD-10) Eyelid dermatitis, allergic/contact ?H01.119 - Allergic dermatitis of unspecified eye, unspecified eyelid (ICD- 10) Elevated TSH ?R79.89 - Other specified abnormal findings of blood chemistry (ICD-10) Hoarseness of voice ?R49.0 - Dysphonia (ICD-10) Smoking greater than 40 pack years ?F17.210 - Nicotine dependence, cigarettes, uncomplicated (ICD-10) Antipsychotic-induced akathisia ?G25.71 - Drug induced akathisia (ICD-10) ?T43.505A - Adverse effect of unspecified antipsychotics and neuroleptics, initial encounter (ICD-10) Chronic constipation ?K59.09 - Other constipation (ICD-10) DOS (diffuse esophageal spasm) ?K22.4 - Dyskinesia of esophagus (ICD-10) Neuropathy ?G62.9 - Polyneuropathy, unspecified (ICD-10) Migraine ?G43.909 - Migraine, unspecified, not intractable, without status migrainosus (ICD-10) Depression ?F32.A - Depression, unspecified (ICD-10) Hand pain ?M79.643 - Pain in unspecified hand (ICD-10) Gestational diabetes ?O24.419 - Gestational diabetes mellitus in , unspecified control (ICD-10) Diabetes mellitus type 2, controlled ?E11.9 - Type 2 diabetes mellitus without complications (ICD-10) Cigarette smoker ?F17.210 - Nicotine dependence, cigarettes, uncomplicated (ICD-10) COPD (chronic obstructive pulmonary disease) ?J44.9 - Chronic obstructive pulmonary disease, unspecified (ICD-10) Hyperlipemia ?E78.5 - Hyperlipidemia, unspecified (ICD-10) Surgical History Hx of tonsillectomy ?Z90.89 - Acquired absence of other organs (ICD-10) History of repair of anterior cruciate ligament of right knee ?Z98.890 - Other specified postprocedural states (ICD-10) S/P NINA-BSO (total abdominal hysterectomy and bilateral salpingo-oophorectomy) ?Z90.710 - Acquired absence of both cervix and uterus (ICD-10) ?Z90.722 - Acquired absence of ovaries, bilateral (ICD-10) ?Z90.79 - Acquired absence of other genital organ(s) (ICD-10) History of endometriosis ?Z87.42 - Personal history of other diseases of the female genital tract (ICD-10) Hx laparoscopic cholecystectomy ?Z90.49 - Acquired absence of other specified parts of digestive tract (ICD- 10) History of carpal tunnel surgery of right wrist ?Z98.890 - Other specified postprocedural states (ICD-10) Hx of hernia repair ?Z98.890 - Other specified postprocedural states (ICD-10) ?Z87.19 - Personal history of other diseases of the digestive system (ICD-10) Hx of section ?Z98.891 - History of uterine scar from previous surgery (ICD-10) History of ear surgery ?Z98.890 - Other specified postprocedural states (ICD-10) Hx of colonoscopy ?Z98.890 - Other specified postprocedural states (ICD-10) Hx of esophagogastroduodenoscopy ?Z98.890 - Other specified postprocedural states (ICD-10) Family History Father Pancreatic cancer Long QT syndrome Brother Bipolar 1 disorder Schizophrenia Mother Coronary artery disease Social History What is your current living situation?: I presently have a place to live Problems where you live: no known problems Problems where you live details: NA In the past 12 months, utilities in danger of being shut off: no In the past 12 mos, have been you worried that your food would run out before you had money to buy more?: never true In the past 12 mos, the food you bought just didn't last and you didn't have money to buy more?: never true Highest level of school completed/degree received: Associate degree: occupational, technical, vocational program Smoking Status: Current every day smoker What tobacco products do you use: cigarettes Smoking packs per day: 1 Smoking cigarettes per day: 20.0 Do you use any of these nicotine containing products: None Second hand tobacco smoke exposure: Yes How often do you have a drink containing alcohol: never AUDIT-C Alcohol total score: 0 Non-prescribed substance use: denies use Caffeine: No How often does anyone, including family, friends and others, physically hurt you : never How often does anyone, including family, friends and others, insult or talk down to you: never How often does anyone, including family, friends and others, threaten you with harm: never How often does anyone, including family, friends and others, scream or curse at you: never service: No Exam Narrative: Exam Narrative: Primary Survey: A- patent. Speaking clearly. Phonation normal. No stridor. B- breathing easily. Lung sounds clear and equal. Oxygen saturation normal on room air C- no active bleeding. Blood pressure stable. Symmetric pulses and cap refill in 4 extremities. D- alert and oriented x3. GCS 15. No focal deficits. Has her eyes covered with her hat because of photophobia but denies any trouble with vision. Constitutional: Appears well-developed and well-nourished. Alert. Looks tired and worn down. Uncomfortable appearing. Is attending to the conversation and answers questions and follows commands appropriately. She is bundled up in her winter coat and winter boots under a blanket. With her fever I asked her to on bundle little bit. This will help her temp come down. HENT: Head: Atraumatic. Nose: Nose normal. Mouth/Throat: Oral mucosa is clear but dry, not desiccated or cracked.. no trismus. Pharynx normal. Tonsils surgically absent. No tonsillar enlargement, erythema, or exudate. Eyes: Conjunctivae normal. EOM normal. Pupils equal, round, and reactive to light. No scleral icterus. Neck: Normal range of motion. Neck supple. No tracheal deviation present. No stiffness. Cardiovascular: Tachycardic, regular rhythm. No gallop. No friction rub. No murmur heard. Symmetric radial artery pulses Pulmonary/Chest: Effort normal. No stridor. No respiratory distress. No wheezes. No rales. No rhonchi . Abdominal: Soft. Bowel sounds normal. No distension. No mass. Epigastric and suprapubic tenderness. No rebound. No guarding. Musculoskeletal: RUE: Normal range of motion. No tenderness. No deformity LUE: Normal range of motion. No tenderness. No deformity RLE: Normal range of motion. No edema. No tenderness. No deformity LLE: Normal range of motion. No edema. No tenderness. No deformity Neurological: Alert and oriented to person, place, and time. Normal strength. CN II-VII intact. No sensory deficit. GCS eye subscore is 4. GCS verbal subscore is 5. GCS motor subscore is 6. Normal coordination Skin: Skin is warm and dry. No rash noted. No pallor. Normal capillary refill. No rash. No petechiae. No signs of cellulitis. Psychiatric: Normal mood. Normal affect. Const: Vital Signs, click to edit/add: Vital Signs - 24 hr 01/18/24 20:19 01/18/24 23:08 01/18/24 23:16 Temperature 101.8 F H 98.1 F 98.1 F Pulse Rate [Pulse Oximeter] 103 H Pulse Rate [Right Pulse Oximeter] 120 H 108 H Respiratory Rate 16 18 18 Blood Pressure [Ri ght Arm] 92/57 L Blood Pressure [Ri ght Forearm] 97/65 97/56 L Pulse Oximetry 88 95 89 Oxygen Delivery Me thod Room Air Room Air Room Air 01/19/24 00:16 01/19/24 00:30 Temperature 98.1 F 98.0 F Pulse Rate [Pulse Oximeter] Pulse Rate [Right Pulse Oximeter] 103 H Respiratory Rate 18 Blood Pressure [Ri ght Arm] Blood Pressure [Ri ght Forearm] 100/64 Pulse Oximetry Oxygen Delivery Me thod Course Course ED Course: After initial evaluation will order blood culture and broad-spectrum IV antibiotics for possible sepsis given her fever. Labs are not back yet but a concern is that she may also have neutropenia. Recheck-fever is down. After IV fluids heart rate down. Patient is feeling quite a bit better after meds. The sitting up in bed now rather than lying on her side. Labs do confirm neutropenia. Reevaluation(s) Reevaluation #1: Recheck-patient did have a hypotensive blood pressure reading but was now laying on her right side with her cuff up in the air. We repositioned the supine recheck. She did have a couple of readings with systolic blood pressure in the 80s and diastolics in the 50s. She has is almost finished with her 1 L of saline. Will follow with a 2 L of fluids, lactated Ringer's. Reevaluation #2: At this point laboratory workup does confirm signs of probable UTI. Likely would be covered by Zosyn/vancomycin administered for sepsis of unknown etiology. She has also surprisingly positive for COVID. She was hypoxic but has not had any recent cough or other definite COVID symptoms (aside from fever today). Since she is in the hospital, likely would not benefit from Paxlovid. Consider possible Decadron, however with associated neutropenia, additional immune suppression with steroids may not be beneficial. Discussed with hospitalist, Dr. Molina, who graciously agrees to evaluate and start the process for admission. However CT findings are still pending and patient should not go to the floor until we confirm there is no complex surgical pathology that would require transfer. Reevaluation #3: Recheck-blood pressure now coming up after receiving part of her 2 L of fluids. Most recent blood pressure 108/63. Patient continues to look well. CT scan her head is back and shows no acute findings. CT scan abdomen/pelvis shows diverticulitis, bladder wall thickening suggestive of cystitis. No pulmonary pathology such as ground-glass opacities. No PE. Vital Signs Vital signs: Initial Vital Signs Temperature 101.8 F H 01/18/24 20:19 Temperature Source Temporal Artery Scan 01/18/24 20:19 Pulse Rate 120 H 01/18/24 20:19 Pulse Rhythm Regular 01/18/24 20:19 Respiratory Rate 16 01/18/24 20:19 Blood Pressure 97/65 01/18/24 20:19 Blood Pressure Mean 75 01/18/24 20:19 Blood Pressure Position Left Lateral 01/18/24 20:19 Pulse Oximetry 88 01/18/24 20:19 Oxygen Delivery Method Room Air 01/18/24 20:19 Vital Signs Temperature 101.8 F H 01/18/24 20:19 Pulse Rate 120 H 01/18/24 20:19 Respiratory Rate 16 01/18/24 20:19 Blood Pressure 97/65 01/18/24 20:19 Pulse Oximetry 88 01/18/24 20:19 Oxygen Delivery Method Room Air 01/18/24 20:19 Temperature 98.0 F 01/19/24 00:30 Pulse Rate 103 H 01/19/24 00:30 Respiratory Rate 18 01/19/24 00:30 Blood Pressure 100/64 01/19/24 00:30 Pulse Oximetry 89 01/18/24 23:16 Oxygen Delivery Method Room Air 01/18/24 23:16 Medications Administered Medications: Generic Name Dose Route Start Last Admin Trade Name Freq PRN Reason Stop Dose Admin Piperacillin Sod/Tazobactam 100 mls @ 200 mls/hr 01/19/24 00:01 01/18/24 21:45 Sod 4.5 gm/ Sodium Chloride IVPB 200 mls/hr Q6H KRISH Administration Discontinued Medications Generic Name Dose Route Start Last Admin Trade Name Juanq PRN Reason Stop Dose Admin Hydromorphone HCl 0.5 mg 01/18/24 21:29 01/18/24 21:58 Hydromorphone 0.5 Mg/0.5 Ml Inj IVP 0.5 mg Q1H PRN Administration Pain Vancomycin HCl 1,500 mg/ 515 mls @ 343.333 mls/hr 01/18/24 21:29 01/18/24 22:58 Sodium Chloride IVPB 01/18/24 22:58 343.33 mls/hr ONCE ONE Administration Protocol Sodium Chloride 1,000 mls @ 1,000 mls/hr 01/18/24 21:30 01/19/24 00:07 0.9 % Sodium Chloride 1000 Ml IV 01/18/24 22:29 Infused .Q1H KRISH Infusion Lactated Ringer's 1,000 mls @ 1,000 mls/hr 01/18/24 23:21 01/19/24 00:07 Lactated Ringers 1000 Ml IV 01/19/24 00:20 1,000 mls/hr .Q1H ONE Administration Ibuprofen 600 mg 01/18/24 21:29 01/18/24 21:56 Ibuprofen 600 Mg Tablet PO 01/18/24 21:30 600 mg ONCE ONE Administration Ondansetron HCl 4 mg 01/18/24 21:29 01/18/24 21:57 Ondansetron 2 Mg/Ml Inj IVP 01/18/24 21:30 4 mg ONCE ONE Administration Medical Decision Making [facility] Narrative Medical decision making narrative: Very pleasant 53-year-old female with diffuse large B-cell lymphoma currently on chemotherapy, 7 days status post her most recent round of R-CHOP. She presents to the ER today with generalized body aches, headache, nausea, fever, fatigue. Concern is for sepsis or possible neutropenic fever. She is started on broad-spectrum antibiotics. Labs and blood cultures are undertaken. She is also hypoxic, and was placed on nasal cannula to keep her sats in the low 90s. Lung sounds are clear. No wheezing or bronchospasm. She has not had any recent cough. No focal lung consolidation on my exam. Workup does confirm neutropenia. I have identified 3 potential sources for fever. These would include probable UTI, diverticulitis (without perforation or abscess or obstruction or bleeding), and coronavirus. Although she has a headache, I this point we agree that the risk in discomfort a lumbar puncture to look for meningitis as a source for fever would outweigh the benefit. She was initially febrile, very uncomfortable, and tachycardic at presentation but is feeling much better after meds, ibuprofen, fluids given here in the ER. She did temporarily have a couple of hypotensive blood pressure readings but these responded nicely to IV fluids and on my repeat exam blood pressure is up, skin exam shows good peripheral perfusion and mental status is normal. Metabolic profile shows mild hypo Cristina Miroslava with potassium of 3.1. BUN and creatinine are normal. Glucose is normal 118. Venous lactic is normal. LFTs are normal. Lipase normal. Surprisingly procalcitonin is normal at 0.06. Lab Data Labs: Lab Results 01/18/24 01/18/24 Range/Units 21:00 21:05 WBC 0.63 L* (4.50-11.00) K/uL RBC 2.78 L (4.00-5.20) m/uL Hgb 9.8 L (12.0-16.0) gm/dL Hct 29.0 L (33.0-51.0) % MCV 104 H (80-100) fL MCH 35 H (26-34) pg MCHC 34 (32-36) gm/dL RDW Coeff of Randall 16.2 H (11.5-15.5) % Plt Count 58 L (140-440) K/uL Neut % (Auto) 55.5 (42.0-72.0) % Lymph % (Auto) 28.6 (20-44) % [place] % (Auto) 9.5 (0.0-11.0) % Eos % (Auto) 3.2 (0.0-7.0) % Baso % (Auto) 1.6 (0.0-3.0) % Neut # (Auto) 0.30 L (1.7-7.0) K/uL Lymph # (Auto) 0.20 L (0.90-2.90) K/uL [place] # (Auto) 0.10 (0.00-0.90) K/UL Eos # (Auto) 0.00 (0.00-0.50) K/uL Baso # (Auto) 0.00 (0.00-0.30) K/uL Abs Immat Gran (auto) 0.00 (0.00-0.30) K/uL Imm/Tot Granulo (auto) 1.6 % Diff Slide Review Acceptable Review (Acceptable) Sodium 135 (135-149) mmol/L Potassium 3.1 L (3.6-5.1) mmol/L Chloride 104 (96-114) mmol/L Carbon Dioxide 25 (20-32) mmol/L Anion Gap 6 L (7-15) mEq/L BUN 7 (7-30) mg/dL Creatinine 0.4 L (0.5-1.5) mg/dL Estimated GFR 118 ml/min Glucose 118 H (60-115) mg/dL Lactate 0.9 (0.5-1.9) mmol/L Calcium 8.8 (8.4-10.6) mg/dL Total Bilirubin 0.3 (0.1-1.5) mg/dL AST 12 (12-35) U/L ALT 13 (4-35) U/L Alkaline Phosphatase 70 (40-150) U/L C-Reactive Protein 2.4 H (0.5-1.0) mg/dL Total Protein 5.7 L (6.0-8.3) g/dL Albumin 3.5 (3.3-5.0) g/dL Lipase 17 L (23-300) U/L Procalcitonin 0.06 (<0.50) ng/mL Urine Color Yellow (Yellow) Urine Appearance Cloudy A (Clear) Urine pH 7.5 (5.0-8.5) Ur Specific [place] 1.015 (1.000-1.030) Urine Protein Negative (Negative) Urine Glucose (UA) Negative (Negative) Urine Ketones Negative (Negative) Urine Blood Negative (Negative) Urine Nitrite Negative (Negative) Urine Bilirubin Negative (Negative) Urine Urobilinogen 0.2 (0.2-1.0) Ur Leukocyte Esterase Trace A (Negative) Urine RBC 0-2 (0-2) Urine WBC 5-10 A (0-5) Ur Squamous Epith Cells Moderate A (None-Few) Urine Bacteria Few A (None) SARS-CoV-2 (PCR) POSITIVE SARS-CoV-2 A (Negative) Influenza Type A (PCR) Negative PCR FLU A (Negative) Influenza Type B (PCR) Negative PCR FLU B (Negative) RSV (PCR) Negative PCR RSV (Negative) Imaging Data CT scan - head: Attestation: I have reviewed the pertinent imaging results. Radiologist's impression: IMPRESSION: 1. No acute intracranial findings. 2. The known punctate left parietal lobe infarcts seen on MRI are not visualized by CT. CT Chest/Ab/Pelvis: Attestation: I have reviewed the pertinent imaging results. Radiologist's impression: IMPRESSION: 1. Acute uncomplicated diverticulitis of the mid to distal sigmoid colon. No evidence of perforation or abscess. 2. No acute pulmonary embolism identified, however the distal subsegmental branches are not well evaluated. 3. Stable heterogeneous sclerosis throughout the left sacrum, left iliac bone, and left acetabulum. 4. Mild bladder wall thickening. Correlate with urinalysis. 5. Stable mild splenomegaly. 6. No other acute findings or lymphadenopathy in the chest, abdomen, or pelvis. Discharge Plan Discharge Clinical Impression: Neutropenia, Sepsis, Diverticulitis, UTI (urinary tract infection), COVID, Hypoxia, Dehydration
--- NOTE | 2024-01-18 21:29 | CRLHL7_ITS ---
For Patients: As a result of the Century Cures Act, medical imaging exams and procedure reports are released immediately into your electronic medical record. You may view this report before your referring provider. If you have questions, please contact your health care provider. INDICATION: Headache, fever. History of lymphoma. COMPARISON: MRI brain 01/17/2024. TECHNIQUE: CT of the head without IV contrast. Coronal and sagittal reconstructions. FINDINGS: Brain: The known punctate left parietal lobe infarcts seen on MRI are not visualized by CT. No CT evidence of acute infarct. Old lacunar infarct in the left cerebellum. No intracranial hemorrhage or abnormal extra-axial fluid collections. No mass effect or midline shift. Normal caliber ventricular system. Skull base and calvarium: Polyp or mucous retention cyst in the left maxillary sinus. The visualized paranasal sinuses and mastoid air cells are otherwise clear. The visualized orbits are grossly unremarkable. No acute fracture identified. Soft tissues: Unremarkable. IMPRESSION: 1. No acute intracranial findings. 2. The known punctate left parietal lobe infarcts seen on MRI are not visualized by CT. Please note that all CT scans at this facility use dose modulation, iterative reconstruction, and/or weight-based dosing when appropriate to reduce radiation dose to as low as reasonably achievable. Dictated by Lolly Michelle MD @ 01/18/2024 11:28:02 PM (Electronically Signed)
--- NOTE | 2024-01-18 21:29 | CRLHL7_ITS ---
For Patients: As a result of the Century Cures Act, medical imaging exams and procedure reports are released immediately into your electronic medical record. You may view this report before your referring provider. If you have questions, please contact your health care provider. INDICATION: Fever, body aches, flank pain, abdominal tenderness, hypoxia. History of lymphoma and COPD. TECHNIQUE: CT of the chest, abdomen, and pelvis acquired with 80 cc Isovue 370 IV contrast. Coronal and sagittal reconstructions. COMPARISON: CT chest, abdomen, pelvis 11/21/2023. PET-CT 11/08/2023. FINDINGS: CHEST: Cardiovascular structures: Normal heart size. Normal caliber thoracic aorta and central pulmonary arteries. The distal subsegmental pulmonary artery branches are not well evaluated. Otherwise no acute pulmonary embolism identified. Coronary artery and aortic vascular calcifications. Mediastinum and criselda: No pathologically enlarged lymph nodes. Trace pericardial effusion. Lungs and pleura: No focal consolidation, pleural effusion, or pneumothorax. Resolution of the previously seen lung infiltrates. Stable 5 mm noncalcified pleural-based pulmonary nodule in the posterior right upper lobe (series 4, image 27). Stable 3 mm noncalcified pulmonary nodule along the left major fissure (image 52). No central endobronchial lesion or significant bronchial wall thickening. Chest wall: No mass or adenopathy. Bones: Degenerative changes of the spine. Old bilateral rib fractures. No suspicious osseous lesion. ABDOMEN/PELVIS: Liver: Normal in size and attenuation. No suspicious masses. Gallbladder and bile ducts: Cholecystectomy. No biliary dilation. Spleen: Enlarged measuring 13 cm in length, unchanged. No focal splenic lesions. Pancreas: Unremarkable. Adrenal glands: Unremarkable. Kidneys, Ureters, and Bladder: Symmetric enhancement. No hydronephrosis or obstructing stones. Mild circumferential bladder wall thickening. Reproductive organs: Hysterectomy. GI tract/Peritoneum: No small bowel dilation. Moderate amount of stool throughout the colon. Colonic diverticulosis. There is wall thickening of the mid to distal sigmoid colon with surrounding inflammatory fat stranding. Findings are compatible with acute diverticulitis. No intraperitoneal free air or fluid. No evidence of abscess. The appendix is not identified. Vasculature : Abdominal aorta is normal in caliber. Aortoiliac vascular calcifications. Mesenteric arteries appear patent. Lymph nodes: Stable mildly prominent left upper periaortic lymph node. No lymphadenopathy by size criteria. Abdominal wall: Unremarkable. Bones: Heterogeneous sclerosis throughout the left sacrum, left iliac bone, and left acetabulum is not significantly changed. IMPRESSION: 1. Acute uncomplicated diverticulitis of the mid to distal sigmoid colon. No evidence of perforation or abscess. 2. No acute pulmonary embolism identified, however the distal subsegmental branches are not well evaluated. 3. Stable heterogeneous sclerosis throughout the left sacrum, left iliac bone, and left acetabulum. 4. Mild bladder wall thickening. Correlate with urinalysis. 5. Stable mild splenomegaly. 6. No other acute findings or lymphadenopathy in the chest, abdomen, or pelvis. Please note that all CT scans at this facility use dose modulation, iterative reconstruction, and/or weight-based dosing when appropriate to reduce radiation dose to as low as reasonably achievable. Dictated by Lolly Michelle MD @ 01/18/2024 11:52:02 PM (Electronically Signed)
[2024-01-18 21:41] LABS: Lactate Sepsis w/Reflex* 0.9 mmol/L (0.5-1.9)
[2024-01-18] MEDS: PIPERACILLIN/TAZOBACTAM 4.5 GM in 0.9 % SODIUM CHLORIDE Mini-bag 100 ML IVPB (21:45)
[2024-01-18] MEDS: IBUPROFEN 600 MG TABLET PO (21:56)
[2024-01-18] MEDS: ONDANSETRON 2 MG/ML inj 4 MG IVP (21:57)
[2024-01-18] MEDS: 0.9 % SODIUM CHLORIDE 1000 ml 1,000 ML IV (21:57)
[2024-01-18 21:58] LABS: Chloride* 104 mmol/L (96-114)
[2024-01-18] MEDS: HYDROmorphone 0.5 mg/0.5 ml inj IVP (21:58)
[2024-01-18 21:59] LABS: Albumin* 3.5 g/dL (3.3-5.0); Basophils Percent Auto 1.6 % (0.0-3.0); Eosinophils Percent Auto 3.2 % (0.0-7.0); Hemoglobin* 9.8 gm/dL (12.0-16.0); Immature Granulocytes Pct Auto 1.6 %; Lymphocytes Percent Auto 28.6 % (20-44); Mean Corpuscular HGB Conc 34 gm/dL (32-36); Mean Corpuscular Hemoglobin 35 pg (26-34); Mean Corpuscular Volume 104 fL (80-100); Monocytes Percent Auto 9.5 % (0.0-11.0); Neutrophils Percent Auto 55.5 % (42.0-72.0); Platelet Count* 58 K/uL (140-440); Potassium* 3.1 mmol/L (3.6-5.1); RDW Coefficient of Variation % 16.2 % (11.5-15.5); Red Blood Count 2.78 m/uL (4.00-5.20); Sodium* 135 mmol/L (135-149)
[2024-01-18 22:00] LABS: Slide Review Reflex Yes; White Blood Count* 0.63 K/uL (4.50-11.00)
[2024-01-18 22:02] LABS: Alanine Aminotransferase* 13 U/L (4-35); Alkaline Phosphatase* 70 U/L (40-150); Anion Gap 6 mEq/L (7-15); Aspartate Amino Transferase* 12 U/L (12-35); Bilirubin Total* 0.3 mg/dL (0.1-1.5); Blood Urea Nitrogen* 7 mg/dL (7-30); Calcium* 8.8 mg/dL (8.4-10.6); Carbon Dioxide* 25 mmol/L (20-32); Creatinine* 0.4 mg/dL (0.5-1.5); Estimated Glomerular Filt Rate 118 ml/min; Glucose* 118 mg/dL (60-115); Lipase* 17 U/L (23-300); Total Protein* 5.7 g/dL (6.0-8.3)
[2024-01-18 22:04] LABS: C Reactive Protein* 2.4 mg/dL (0.5-1.0)
[2024-01-18 22:16] LABS: Appearance Urine Cloudy (Clear); Bilirubin Urine Negative (Negative); Blood Urine Negative (Negative); Color Urine Yellow (Yellow); Glucose Urine Negative (Negative); Ketones Urine Negative (Negative); Leukocyte Esterase Urine Trace (Negative); Nitrite Urine Negative (Negative); Protein Urine Negative (Negative); Specific Gravity Urine 1.015 (1.000-1.030); Urobilinogen Urine 0.2 (0.2-1.0); pH Urine 7.5 (5.0-8.5)
[2024-01-18 22:17] LABS: Procalcitonin* 0.06 ng/mL (<0.50)
[2024-01-18 22:21] LABS: PCR FLU A Negative PCR FLU A (Negative); PCR FLU B Negative PCR FLU B (Negative); PCR RSV Negative PCR RSV (Negative); SARS PCR* POSITIVE SARS-CoV-2 (Negative)
[2024-01-18 22:27] LABS: Bacteria Urine Few; RBC Urine 0-2 (0-2); Squamous Epithelial Cell Urine Moderate (None-Few)
[2024-01-18 22:46] LABS: Slide Review Acceptable Review (Acceptable)
[2024-01-18 23:08] VITALS: BP 97/56; PULSE 108; RESP 18; TEMP 36.7; O2SAT 95
[2024-01-18 23:16] VITALS: BP 92/57; PULSE 103; RESP 18; TEMP 36.7; O2SAT 89
[2024-01-19] VITALS (12 sets, daily range): BP systolic 88–111; BP diastolic 52–88; PULSE 79–103; RESP 2–21; TEMP 36.1–36.7; O2SAT 94–97; BMI 28.9
[2024-01-19] MEDS: LACTATED RINGERS 1000 ML 1,000 ML IV (00:07)
--- NOTE | 2024-01-19 00:51 | PM.IMHP1 ---
Hospitalist- H&P: HPI History of Present Illness Date Seen: 01/19/24 Chief complaint: has a fever, last chemo was last Sunday Narrative: Ana Fuller is a 53 year old female with past medical history of Diffuse Large B Cell Lymphoma, DM, COPD, HLD & severe recurrent depression with psychosis. ?Patient is being treated with R-CHOP for advanced stage DLBCL presenting today with fever, body aches, slight SOB and abdominal pain. In addition patient mentioned feeling nauseated, w/ some urinary symptoms but no cough or diarrhia, she has history of ?UTIs. Her last session of chemotherapy was a week ago. ?patient was admitted on November 19 for neutropenic fever that was due to multilobar pneumonia at that time.At the ED, patient was tachycardic, ?Hypoxic with an O2 sat level of 88%, ?fevers at 101.8. Absolute neutrophil count is 300. ? Urinalysis ?is positive. head CT w/ No acute intracranial findings; chest and abdomen CT showed Acute uncomplicated diverticulitis of the mid to distal sigmoid colon. No evidence of perforation or abscess. Review of Systems Status of ROS: Reports: 6 or more systems reviewed and unremarkable except as noted in History and below [facility] Medical History (Updated 01/19/24 @ 01:21 by Shanna Molina MD) Neutropenic fever ?D70.9 - Neutropenia, unspecified (ICD-10) ?R50.81 - Fever presenting with conditions classified elsewhere (ICD-10) Encounter for smoking cessation counseling ?Z71.6 - Tobacco abuse counseling (ICD-10) Tachycardia ?R00.0 - Tachycardia, unspecified (ICD-10) Otalgia, right ear ?H92.01 - Otalgia, right ear (ICD-10) CAD (coronary artery disease) ?I25.10 - Atherosclerotic heart disease of [place] coronary artery without angina pectoris (ICD-10) Stomatitis ?K12.1 - Other forms of stomatitis (ICD-10) At risk for inadequate pain control ?Z91.89 - Other specified personal risk factors, not elsewhere classified (ICD-10) Diffuse large B cell lymphoma ?C83.30 - Diffuse large B-cell lymphoma, unspecified site (ICD-10) Rib fracture ?S22.39XA - Fracture of one rib, unspecified side, initial encounter for closed fracture (ICD-10) Tubular adenoma ?D36.9 - Benign neoplasm, unspecified site (ICD-10) Eyelid dermatitis, allergic/contact ?H01.119 - Allergic dermatitis of unspecified eye, unspecified eyelid (ICD-10) Elevated TSH ?R79.89 - Other specified abnormal findings of blood chemistry (ICD-10) Hoarseness of voice ?R49.0 - Dysphonia (ICD-10) Smoking greater than 40 pack years ?F17.210 - Nicotine dependence, cigarettes, uncomplicated (ICD-10) Antipsychotic-induced akathisia ?G25.71 - Drug induced akathisia (ICD-10) ?T43.505A - Adverse effect of unspecified antipsychotics and neuroleptics, initial encounter (ICD-10) Chronic constipation ?K59.09 - Other constipation (ICD-10) DOS (diffuse esophageal spasm) ?K22.4 - Dyskinesia of esophagus (ICD-10) Neuropathy ?G62.9 - Polyneuropathy, unspecified (ICD-10) Migraine ?G43.909 - Migraine, unspecified, not intractable, without status migrainosus (ICD-10) Depression ?F32.A - Depression, unspecified (ICD-10) Hand pain ?M79.643 - Pain in unspecified hand (ICD-10) Gestational diabetes ?O24.419 - Gestational diabetes mellitus in , unspecified control (ICD-10) Diabetes mellitus type 2, controlled ?E11.9 - Type 2 diabetes mellitus without complications (ICD-10) Cigarette smoker ?F17.210 - Nicotine dependence, cigarettes, uncomplicated (ICD-10) COPD (chronic obstructive pulmonary disease) ?J44.9 - Chronic obstructive pulmonary disease, unspecified (ICD-10) Hyperlipemia ?E78.5 - Hyperlipidemia, unspecified (ICD-10) Surgical History Hx of tonsillectomy ?Z90.89 - Acquired absence of other organs (ICD-10) History of repair of anterior cruciate ligament of right knee ?Z98.890 - Other specified postprocedural states (ICD-10) S/P NINA-BSO (total abdominal hysterectomy and bilateral salpingo-oophorectomy) ?Z90.710 - Acquired absence of both cervix and uterus (ICD-10) ?Z90.722 - Acquired absence of ovaries, bilateral (ICD-10) ?Z90.79 - Acquired absence of other genital organ(s) (ICD-10) History of endometriosis ?Z87.42 - Personal history of other diseases of the female genital tract (ICD-10) Hx laparoscopic cholecystectomy ?Z90.49 - Acquired absence of other specified parts of digestive tract (ICD-10) History of carpal tunnel surgery of right wrist ?Z98.890 - Other specified postprocedural states (ICD-10) Hx of hernia repair ?Z98.890 - Other specified postprocedural states (ICD-10) ?Z87.19 - Personal history of other diseases of the digestive system (ICD-10) Hx of section ?Z98.891 - History of uterine scar from previous surgery (ICD-10) History of ear surgery ?Z98.890 - Other specified postprocedural states (ICD-10) Hx of colonoscopy ?Z98.890 - Other specified postprocedural states (ICD-10) Hx of esophagogastroduodenoscopy ?Z98.890 - Other specified postprocedural states (ICD-10) Family History Father Pancreatic cancer Long QT syndrome Brother Bipolar 1 disorder Schizophrenia Mother Coronary artery disease Social History What is your current living situation?: I presently have a place to live Problems where you live: no known problems Problems where you live details: NA In the past 12 months, utilities in danger of being shut off: no In the past 12 mos, have been you worried that your food would run out before you had money to buy more?: never true In the past 12 mos, the food you bought just didn't last and you didn't have money to buy more?: never true Highest level of school completed/degree received: Associate degree: occupational, technical, vocational program Smoking Status: Current every day smoker What tobacco products do you use: cigarettes Smoking packs per day: 1 Smoking cigarettes per day: 20.0 Do you use any of these nicotine containing products: None Second hand tobacco smoke exposure: Yes How often do you have a drink containing alcohol: never AUDIT-C Alcohol total score: 0 Non-prescribed substance use: denies use Caffeine: No How often does anyone, including family, friends and others, physically hurt you: never How often does anyone, including family, friends and others, insult or talk down to you: never How often does anyone, including family, friends and others, threaten you with harm: never How often does anyone, including family, friends and others, scream or curse at you: never service: No Meds Home Medications and Allergies Home Medications ?Medication ?Instructions ?Recorded ?Confirmed ?Type atorvastatin 80 mg tablet 80 mg PO DAILY 11/21/23 01/17/24 History sumatriptan succinate 100 mg tablet 100 mg PO Q2H PRN migraine headache 11/21/23 01/17/24 History Allergies Allergy/AdvReac Type Severity Reaction Status Date / Time No Known Allergies Allergy Unknown Verified 01/18/24 22:16 Exam Narrative: Exam Narrative: GEN: NAD, pt looks tired CARD: tachycardis NL S1 S2, no murmer RESP: good air entery B/L, no wheezes ABD: Lower abdominal discomfort on palpation. NEURO: AAA x 3, NL speech PSYCH: NL mood and affect Const: Vital Signs, click to edit/add: Vital Signs - 24 hr 01/18/24 20:19 01/18/24 23:08 01/18/24 23:16 Temperature 101.8 F H 98.1 F 98.1 F Pulse Rate [Pulse Oximeter] 103 H Pulse Rate [Right Pulse Oximeter] 120 H 108 H Respiratory Rate 16 18 18 Blood Pressure [Ri ght Arm] 92/57 L Blood Pressure [Ri ght Forearm] 97/65 97/56 L Pulse Oximetry 88 95 89 [facility] Room Air Room Air 01/19/24 00:16 01/19/24 00:30 Temperature 98.1 F 98.0 F Pulse Rate [Pulse Oximeter] Pulse Rate [Right Pulse Oximeter] 103 H Respiratory Rate 18 Blood Pressure [Ri ght Arm] Blood Pressure [Ri ght Forearm] 100/64 Pulse Oximetry [facility] - H&P: Result Labs Labs: Short CBC 01/18/24 Range/Units 21:05 WBC 0.63 L* (4.50-11.00) K/uL Hgb 9.8 L (12.0-16.0) gm/dL Hct 29.0 L (33.0-51.0) % Plt Count 58 L (140-440) K/uL BMP 01/18/24 21:05 Sodium 135 Potassium 3.1 L Chloride 104 Carbon Dioxide 25 BUN 7 Creatinine 0.4 L Glucose 118 H Calcium 8.8 Liver Function 01/18/24 Range/Units 21:05 Total Bilirubin 0.3 (0.1-1.5) mg/dL AST 12 (12-35) U/L ALT 13 (4-35) U/L Alkaline Phosphatase 70 (40-150) U/L Albumin 3.5 (3.3-5.0) g/dL Urine 01/18/24 Range/Units 21:00 Urine Color Yellow (Yellow) Urine Appearance Cloudy A (Clear) Urine pH 7.5 (5.0-8.5) Ur Specific [place] 1.015 (1.000-1.030) Urine Protein Negative (Negative) Urine Glucose (UA) Negative (Negative) Imaging CT scan - head: Radiologist's impression: INDICATION: Headache, fever. History of lymphoma. COMPARISON: MRI brain 01/17/2024. TECHNIQUE: CT of the head without IV contrast. Coronal and sagittal reconstructions. FINDINGS: Brain: The known punctate left parietal lobe infarcts seen on MRI are not visualized by CT. No CT evidence of acute infarct. Old lacunar infarct in the left cerebellum. No intracranial hemorrhage or abnormal extra-axial fluid collections. No mass effect or midline shift. Normal caliber ventricular system. Skull base and calvarium: Polyp or mucous retention cyst in the left maxillary sinus. The visualized paranasal sinuses and mastoid air cells are otherwise clear. The visualized orbits are grossly unremarkable. No acute fracture identified. Soft tissues: Unremarkable. IMPRESSION: 1. No acute intracranial findings. 2. The known punctate left parietal lobe infarcts seen on MRI are not visualized by CT. Please note that all CT scans at this facility use dose modulation, iterative reconstruction, and/or weight-based dosing when appropriate to reduce radiation dose to as low as reasonably achievable. Dictated by Lolly Michelle MD @ 01/18/2024 11:28:[address] Chest/Ab/Pelvis: Radiologist's impression: INDICATION: Fever, body aches, flank pain, abdominal tenderness, hypoxia. History of lymphoma and COPD. TECHNIQUE: CT of the chest, abdomen, and pelvis acquired with 80 cc Isovue 370 IV contrast. Coronal and sagittal reconstructions. COMPARISON: CT chest, abdomen, pelvis 11/21/2023. PET-CT 11/08/2023. FINDINGS: CHEST: Cardiovascular structures: Normal heart size. Normal caliber thoracic aorta and central pulmonary arteries. The distal subsegmental pulmonary artery branches are not well evaluated. Otherwise no acute pulmonary embolism identified. Coronary artery and aortic vascular calcifications. Mediastinum and criselda: No pathologically enlarged lymph nodes. Trace pericardial effusion. Lungs and pleura: No focal consolidation, pleural effusion, or pneumothorax. Resolution of the previously seen lung infiltrates. Stable 5 mm noncalcified pleural-based pulmonary nodule in the posterior right upper lobe (series 4, image 27). Stable 3 mm noncalcified pulmonary nodule along the left major fissure (image 52). No central endobronchial lesion or significant bronchial wall thickening. Chest wall: No mass or adenopathy. Bones: Degenerative changes of the spine. Old bilateral rib fractures. No suspicious osseous lesion. ABDOMEN/PELVIS: Liver: Normal in size and attenuation. No suspicious masses. Gallbladder and bile ducts: Cholecystectomy. No biliary dilation. Spleen: Enlarged measuring 13 cm in length, unchanged. No focal splenic lesions. Pancreas: Unremarkable. Adrenal glands: Unremarkable. Kidneys, Ureters, and Bladder: Symmetric enhancement. No hydronephrosis or obstructing stones. Mild circumferential bladder wall thickening. Reproductive organs: Hysterectomy. GI tract/Peritoneum: No small bowel dilation. Moderate amount of stool throughout the colon. Colonic diverticulosis. There is wall thickening of the mid to distal sigmoid colon with surrounding inflammatory fat stranding. Findings are compatible with acute diverticulitis. No intraperitoneal free air or fluid. No evidence of abscess. The appendix is not identified. Vasculature : Abdominal aorta is normal in caliber. Aortoiliac vascular calcifications. Mesenteric arteries appear patent. Lymph nodes: Stable mildly prominent left upper periaortic lymph node. No lymphadenopathy by size criteria. Abdominal wall: Unremarkable. Bones: Heterogeneous sclerosis throughout the left sacrum, left iliac bone, and left acetabulum is not significantly changed. IMPRESSION: 1. Acute uncomplicated diverticulitis of the mid to distal sigmoid colon. No evidence of perforation or abscess. 2. No acute pulmonary embolism identified, however the distal subsegmental branches are not well evaluated. 3. Stable heterogeneous sclerosis throughout the left sacrum, left iliac bone, and left acetabulum. 4. Mild bladder wall thickening. Correlate with urinalysis. 5. Stable mild splenomegaly. 6. No other acute findings or lymphadenopathy in the chest, abdomen, or pelvis. Please note that all CT scans at this facility use dose modulation, iterative reconstruction, and/or weight-based dosing when appropriate to reduce radiation dose to as low as reasonably achievable. Dictated by Lolly Michelle MD @ 01/18/2024 11:52:02 PM Assessment and Plan Assessment and plan (1) Neutropenic fever: Problem comment: - Start patient on Zosyn. Likely 2/2 diverticulosis - follow-up blood cultures - follow-up MRSA naris screen - status post 1 L IV fluid at the ED, give IV fluid maintenance at a rate of 100 mL/hour. - pain control. Status: Acute (2) Sepsis: Problem comment: as above Status: Acute (3) COVID: Problem comment: - start remdesivir for 5 days. - start dexamethasone 6 mg IV daily as patient was hypoxic, DC SARBJIT when pt feels well as pt has suspected diverticulosis Status: Acute (4) Diverticulitis: Problem comment: -Uncomplicated -On zosyn Status: Acute (5) Diffuse large B cell lymphoma: Problem comment: stage IV metastatic her last session of chemotherapy back in November 08. #1 DLBCL, advanced stage Returns to clinic prior to cycle 3 of R-CHOP for DLBCL. Tolerated cycle 2 without major issues. Interim PET-CT shows a great response. Will proceed with cycle 3 as scheduled, without dose reductions. DLBCL, advanced stage Patient is a 53 y.o. woman with previous medical history significant for tobacco use, hyperlipidemia, type 2 diabetes, COPD, and major depressive disorder with psychotic features, whose hematological history may be summarized as follows: August 07, 2023: MRI of the pelvis with and without contrast obtained to evaluate persistent/progressive pain of the left hip reportedly showed abnormalities on the left hip. Images not reviewed by [facility]. 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 September 14, 2023: Baseline PET-CT shows intensely FDG avid left pelvic mass along with FDG avid lymphadenopathy below diaphragm including spleen. September 28, 2023: Start of frontline therapy with R-CHOP. Status: Acute (6) Diabetes mellitus type 2, controlled: Problem comment: Low-dose insulin sliding scale Status: Acute
[2024-01-19] MEDS: POTASSIUM CHLORIDE 10 MEQ CAPSULE ER 20 MEQ PO (02:13)
[2024-01-19] MEDS: dexAMETHasone 4 MG/ML VIAL 6 MG IV (02:14)
[2024-01-19] MEDS: 0.9 % SODIUM CHLORIDE 1000 ml 1,000 ML 100 ML IV (02:22)
[2024-01-19] MEDS: PIPERACILLIN/TAZOBACTAM 4.5 GM in 0.9 % SODIUM CHLORIDE Mini-bag 100 ML IVPB ×4 (05:23→23:12)
--- NOTE | 2024-01-19 08:06 | PC.NURSE ---
Shift note ([id number]): Patient admitted to med/surg at 0040 from ED. Patient alert and oriented. Ambulates independently in room. Requested a?sandwich and yogurt on admission. Tolerated regular diet. Requested aqua-k pad for back discomfort. Otherwise has denied pain. Refused MRSA nasal swab.?Removed O2 at HS reporting that she did not need it. O2 sats decreased to mid 80?s during night and pt agreed to put O2 back on at that time. O2 sats 93% on 2 LPM. ?
[2024-01-19 08:08] LABS: Basophils Percent Auto 2.3 % (0.0-3.0); Hematocrit 28.8 % (33.0-51.0); Hemoglobin* 9.5 gm/dL (12.0-16.0); Immature Granulocytes Pct Auto 9.3 %; Lymphocytes Percent Auto 20.9 % (20-44); Mean Corpuscular HGB Conc 33 gm/dL (32-36); Mean Corpuscular Hemoglobin 35 pg (26-34); Mean Corpuscular Volume 105 fL (80-100); Monocytes Percent Auto 11.6 % (0.0-11.0); Neutrophils Percent Auto 55.9 % (42.0-72.0); RDW Coefficient of Variation % 15.9 % (11.5-15.5); Red Blood Count 2.74 m/uL (4.00-5.20)
[2024-01-19 08:16] LABS: White Blood Count* 0.43 K/uL (4.50-11.00)
[2024-01-19 08:17] LABS: Platelet Count* 42 K/uL (140-440); Slide Review Reflex Yes
[2024-01-19 08:18] LABS: Slide Review Acceptable Review (Acceptable)
[2024-01-19 08:23] LABS: Albumin* 3.5 g/dL (3.3-5.0); Chloride* 109 mmol/L (96-114); Sodium* 138 mmol/L (135-149)
[2024-01-19 08:24] LABS: Potassium* 4.3 mmol/L (3.6-5.1)
[2024-01-19 08:26] LABS: Alanine Aminotransferase* 13 U/L (4-35); Alkaline Phosphatase* 65 U/L (40-150); Anion Gap 4 mEq/L (7-15); Aspartate Amino Transferase* 12 U/L (12-35); Bilirubin Total* 0.1 mg/dL (0.1-1.5); Blood Urea Nitrogen* 8 mg/dL (7-30); Carbon Dioxide* 25 mmol/L (20-32); Creatinine* 0.4 mg/dL (0.5-1.5); Est. Creatinine Clearance* 138.84; Estimated Glomerular Filt Rate 118 ml/min; Glucose* 148 mg/dL (60-115); Total Protein* 5.7 g/dL (6.0-8.3)
[2024-01-19 08:27] LABS: Calcium* 8.8 mg/dL (8.4-10.6); Magnesium* 1.7 mg/dL (1.5-2.6)
[2024-01-19] MEDS: ATORVASTATIN CALCIUM 40 MG TABLET 80 MG PO (10:09)
[2024-01-19] MEDS: GABAPENTIN 600 MG TABLET PO ×3 (10:10→15:04)
[2024-01-19] MEDS: buPROPion HCL 100 MG TAB.SR.12H PO (10:10)
[2024-01-19] MEDS: NICOTINE 21 MG PATCH 21 PATCH TRANSDERMA (10:11)
--- NOTE | 2024-01-19 10:11 | PM.IMPN1 ---
Progress Note: A&P Assessment and plan (1) Neutropenic fever: Problem details: - continue Zosyn and vanco until afebrile for 48 hours or no longer neutropenic. Likely 2/2 diverticulosis and probable UTI - blood culture x1, no growth to date - MRSA naris screen ordered - status post 1 L IV fluid at the ED, was on IV fluid maintenance at a rate of 100 mL/hour overnight - continue pain control. Status: Acute (2) Sepsis: Problem details: as above Status: Resolved (3) Diverticulitis: Problem details: -Uncomplicated, seen on CT -On zosyn Status: Acute (4) COVID: Problem details: - start remdesivir for 5 days. - dexamethasone 6 mg IV started yesterday, patient is no longer hypoxic, discontinue Status: Acute (5) UTI (urinary tract infection): Problem details: - Abnormal UA, mild bladder wall thickening on CT, occasional dysuria in the last few days. - await urine culture - continue Zosyn Status: Acute (6) Diffuse large B cell lymphoma: Problem details: stage IV metastatic her last session of chemotherapy back in November 08. #1 DLBCL, advanced stage Returns to clinic prior to cycle 3 of R-CHOP for DLBCL. Tolerated cycle 2 without major issues. Interim PET-CT shows a great response. Will proceed with cycle 3 as scheduled, without dose reductions. DLBCL, advanced stage Patient is a 53 y.o. woman with previous medical history significant for tobacco use, hyperlipidemia, type 2 diabetes, COPD, and major depressive disorder with psychotic features, whose hematological history may be summarized as follows: August 07, 2023: MRI of the pelvis with and without contrast obtained to evaluate persistent/progressive pain of the left hip reportedly showed abnormalities on the left hip. Images not reviewed by [facility]. 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 September 14, 2023: Baseline PET-CT shows intensely FDG avid left pelvic mass along with FDG avid lymphadenopathy below diaphragm including spleen. September 28, 2023: Start of frontline therapy with R-CHOP. Status: Acute (7) Diabetes mellitus type 2, controlled: Problem details: Glucose is 140s to 190s, continue Low-dose insulin sliding scale Status: Acute (8) Pancytopenia due to chemotherapy: Problem details: - hold ibuprofen while platelets are below 50, also hold pharmacologic prophylaxis - treat neutropenic fever as above - no indication for packed red blood cell transfusion at this time - monitor. Status: Acute Time Spent With Patient Total time spent: Today I spent 35 minutes rounding on the patient. Greater than 50% included discussing care with the patient and her , the team, reviewing data, updating and managing the care plan. Subjective Time Seen by Provider: 10:35 Date Seen: 01/19/24 Interval history: Ana was angry and anxious this morning. She wanted to be discharged home today. We discussed neutropenic fever, COVID, possible UTI, diverticulitis on CT, and pancytopenia. We also discussed her home medications. She was very upset that she was not getting her ibuprofen that she takes at home. We discussed several times that this could cause bleeding in the setting of low platelets. Her , Tino, came in part way through our conversation. I gave him the opportunity to ask questions, and answered those, reiterating some of the information that I had spoken with Ana about. Ana was agreeable to stay for the treatment of these conditions. Exam Narrative: Exam Narrative: General: Angry. Awake, alert, oriented. No pallor. No jaundice. Oropharynx: Clear. Mucous membranes moist. Cardiovascular: Regular rate and rhythm. No murmurs, gallops, or rubs. Respiratory: Clear to auscultation bilaterally. No wheezes or crackles. Abdomen: Bowel sounds present. Soft, nondistended, nontender. Const: Vital Signs, click to edit/add: Vital Signs - 24 hr 01/18/24 20:19 01/18/24 23:08 01/18/24 23:16 Temperature 101.8 F H 98.1 F 98.1 F Pulse Rate Pulse Rate [Pulse Oximeter] 103 H Pulse Rate [Right Pulse Oximeter] 120 H 108 H Respiratory Rate 16 18 18 Blood Pressure [Ri ght Arm] 92/57 L Blood Pressure [Ri ght Forearm] 97/65 97/56 L Pulse Oximetry 88 95 89 Oxygen Delivery Me thod Room Air Room Air Room Air Oxygen Flow Rate 01/19/24 00:16 01/19/24 00:30 01/19/24 00:43 Temperature 98.1 F 98.0 F Pulse Rate Pulse Rate [Pulse Oximeter] Pulse Rate [Right Pulse Oximeter] 103 H Respiratory Rate 18 Blood Pressure [Ri ght Arm] Blood Pressure [Ri ght Forearm] 100/64 Pulse Oximetry 97 Oxygen Delivery Me thod Oxygen Flow Rate 01/19/24 01:04 01/19/24 01:04 01/19/24 02:15 Temperature 97.8 F Pulse Rate 101 H Pulse Rate [Pulse Oximeter] 98 Pulse Rate [Right Pulse Oximeter] Respiratory Rate 20 20 Blood Pressure [Ri ght Arm] 88/63 L Blood Pressure [Ri ght Forearm] Pulse Oximetry 94 96 Oxygen Delivery Me thod Nasal Cannula Nasal Cannula Oxygen Flow Rate 2 2 01/19/24 03:00 Temperature Pulse Rate Pulse Rate [Pulse Oximeter] 91 Pulse Rate [Right Pulse Oximeter] Respiratory Rate 21 Blood Pressure [Ri ght Arm] 99/52 L Blood Pressure [Ri ght Forearm] Pulse Oximetry 94 Oxygen Delivery Me thod Nasal Cannula Oxygen Flow Rate 2 Labs Labs: Laboratory Results - last 24 hr 01/18/24 01/18/24 01/19/24 21:00 21:05 07:50 WBC 0.63 L* 0.43 L* RBC 2.78 L 2.74 L Hgb 9.8 L 9.5 L Hct 29.0 L 28.8 L MCV 104 H 105 H MCH 35 H 35 H MCHC 34 33 RDW Coeff of Randall 16.2 H 15.9 H Plt Count 58 L 42 L* Neut % (Auto) 55.5 55.9 Lymph % (Auto) 28.6 20.9 [place] % (Auto) 9.5 11.6 H Eos % (Auto) 3.2 0.0 Baso % (Auto) 1.6 2.3 Neut # (Auto) 0.30 L 0.20 L Lymph # (Auto) 0.20 L 0.10 L [place] # (Auto) 0.10 0.00 Eos # (Auto) 0.00 0.00 Baso # (Auto) 0.00 0.00 Abs Immat Gran (auto) 0.00 0.00 Imm/Tot Granulo (auto) 1.6 9.3 Diff Slide Review Acceptable Review Acceptable Review Sodium 135 138 Potassium 3.1 L 4.3 Chloride 104 109 Carbon Dioxide 25 25 Anion Gap 6 L 4 L BUN 7 8 Creatinine 0.4 L 0.4 L Estimated Creat Clear 138.84 Estimated GFR 118 118 Glucose 118 H 148 H Lactate 0.9 Calcium 8.8 8.8 Magnesium 1.7 Total Bilirubin 0.3 0.1 AST 12 12 ALT 13 13 Alkaline Phosphatase 70 65 C-Reactive Protein 2.4 H Total Protein 5.7 L 5.7 L Albumin 3.5 3.5 Lipase 17 L Procalcitonin 0.06 Urine Color Yellow Urine Appearance Cloudy A Urine pH 7.5 Ur Specific [place] 1.015 Urine Protein Negative Urine Glucose (UA) Negative Urine Ketones Negative Urine Blood Negative Urine Nitrite Negative Urine Bilirubin Negative Urine Urobilinogen 0.2 Ur Leukocyte Esterase Trace A Urine RBC 0-2 Urine WBC 5-10 A Ur Squamous Epith Cells Moderate A Urine Bacteria Few A SARS-CoV-2 (PCR) POSITIVE SARS-CoV-2 A Influenza Type A (PCR) Negative PCR FLU A Influenza Type B (PCR) Negative PCR FLU B RSV (PCR) Negative PCR RSV
[2024-01-19] MEDS: OXYCODONE 5 MG TABLET PO ×6 (10:13→23:13)
[2024-01-19] MEDS: ACETAMINOPHEN 500 MG TABLET PO ×2 (10:30→16:01)
[2024-01-19] MEDS: SODIUM CHLORIDE 0.9 % (FLUSH) 10 ML SYRINGE 5 ML IVF ×3 (10:32→20:22)
[2024-01-19] MEDS: BUDESONIDE FORMOTEROL IH ×2 (10:58→20:21)
[2024-01-19] MEDS: ALBUTEROL INHALER 2 PUFF IH (11:00)
[2024-01-19] MEDS: CYCLOBENZAPRINE HCL 10 MG TABLET PO ×3 (13:05→23:13)
[2024-01-19] MEDS: LORazepam 0.5 MG TABLET PO (13:06)
[2024-01-19] MEDS: ENOXAPARIN 40 MG/0.4 ML INJ SUBCUT (13:47)
[2024-01-19] MEDS: INSULIN ASPART 100 UNIT/ML SUBCUT (15:03)
[2024-01-19] MEDS: hydrOXYzine pamoate 25 MG CAPSULE PO ×2 (18:15→19:40)
--- NOTE | 2024-01-19 18:52 | PC.NURSE ---
Shift Note: Pt visibly irritated on initial assessment. She verbalized frustration with her admission process, obtaining a nicotine patch, rated pain 9/10 in her abdomen and pelvic area, and stated she had questions that weren't being answered. Car Repairman assisted meeting patients physical and emotional needs. Explained cares and the POC as well as labs and medication education. Pt initially somewhat hostile toward staff with dirty looks and complaints. She was tearful and stated she was considering going home AMA. MD updated. Post MD rounding pt appeared more comfortable with the POC and has been much more pleasant this afternoon. She states her pain has decreased and she is visiting with her at the bedside. VSS, she has been afebrile with highest temp 99.3. Moving independently throughout her room without difficulty. Tele=NSR. Good appetite, she is eating the majority of her meal trays.
[2024-01-20] VITALS (8 sets, daily range): BP systolic 101–111; BP diastolic 62–70; PULSE 101–104; RESP 18–20; TEMP 36.6–37.6; O2SAT 90–96
[2024-01-20] MEDS: PIPERACILLIN/TAZOBACTAM 4.5 GM in 0.9 % SODIUM CHLORIDE Mini-bag 100 ML IVPB ×2 (05:09→10:04)
[2024-01-20] MEDS: OXYCODONE 5 MG TABLET PO ×5 (05:11→22:55)
--- NOTE | 2024-01-20 06:49 | PC.NURSE ---
End of shift report [id number]: Pleasant and cooperative with cares this shift. Pain well managed with current regime. Per patient, she has a long acting narcotic that she was originally prescribed at her last stay at [facility] that she uses as needed when pain is not managed with immediate release narcotic. Patient states that it makes her sleepy so she limits use of it. Denies any shortness of breath or chest pain this shift. Afebrile throughout shift without use of fever reducing medications. Declined scheduled duoneb, states that she does not feel symptoms that warrant use of nebulizer. Independent with transfers and ambulation. Continent of bladder and bowel.
[2024-01-20 08:46] LABS: Basophils Percent Auto 2.9 % (0.0-3.0); Eosinophils Percent Auto 1.5 % (0.0-7.0); Hematocrit 26.3 % (33.0-51.0); Hemoglobin* 8.8 gm/dL (12.0-16.0); Immature Granulocytes Pct Auto 11.8 %; Lymphocytes Percent Auto 39.7 % (20-44); Mean Corpuscular HGB Conc 34 gm/dL (32-36); Mean Corpuscular Hemoglobin 36 pg (26-34); Mean Corpuscular Volume 106 fL (80-100); Monocytes Percent Auto 13.2 % (0.0-11.0); Neutrophils Percent Auto 30.9 % (42.0-72.0); RDW Coefficient of Variation % 15.8 % (11.5-15.5); Red Blood Count 2.48 m/uL (4.00-5.20)
[2024-01-20 08:48] LABS: Platelet Count* 39 K/uL (140-440); White Blood Count* 0.68 K/uL (4.50-11.00)
[2024-01-20 08:49] LABS: Slide Review Reflex No
[2024-01-20 09:00] LABS: Chloride* 107 mmol/L (96-114); Sodium* 139 mmol/L (135-149)
[2024-01-20 09:03] LABS: Anion Gap 5 mEq/L (7-15); Blood Urea Nitrogen* 9 mg/dL (7-30); Calcium* 8.7 mg/dL (8.4-10.6); Carbon Dioxide* 27 mmol/L (20-32); Creatinine* 0.5 mg/dL (0.5-1.5); Est. Creatinine Clearance* 111.07; Estimated Glomerular Filt Rate 111 ml/min; Glucose* 92 mg/dL (60-115); Potassium* 3.4 mmol/L (3.6-5.1)
[2024-01-20] MEDS: GABAPENTIN 600 MG TABLET PO ×3 (09:27→20:10)
[2024-01-20] MEDS: buPROPion HCL 100 MG TAB.SR.12H PO (09:27)
[2024-01-20] MEDS: BUDESONIDE FORMOTEROL IH ×2 (09:28→21:09)
[2024-01-20] MEDS: NICOTINE 21 MG PATCH 21 PATCH TRANSDERMA (09:28)
[2024-01-20] MEDS: SODIUM CHLORIDE 0.9 % (FLUSH) 10 ML SYRINGE 5 ML IVF (09:29)
[2024-01-20] MEDS: CYCLOBENZAPRINE HCL 10 MG TABLET PO ×2 (10:12→20:10)
[2024-01-20] MEDS: hydrOXYzine pamoate 25 MG CAPSULE PO ×3 (10:12→21:51)
--- NOTE | 2024-01-20 11:13 | RESP.RT ---
Patient on room air, SaO2 92%, increases with cough to 96%. BBS improved air movement today vs yesterday, with wheezing throughout lung garcia, patient states this is normal. Patient good strong clear voice today. Good cough able to clear secretions when present.
--- NOTE | 2024-01-20 12:11 | P.IMPN_ITS ---
Progress Note: A&P Assessment and plan (1) Neutropenic fever: Problem details: - suspect due to COVID, diverticulitis, E coli UTI - change to cipro/flagyl for UTI sensitivities - blood culture x1, no growth to date - MRSA naris screen refused by patient - status post 1 L IV fluid at the ED, was on IV fluid maintenance at a rate of 100 mL/hour x 1 night - continue pain control. Status: Acute (2) Sepsis: Problem details: as above Status: Resolved (3) Diverticulitis: Problem details: -Uncomplicated, seen on CT -Change to cipro/flagyl Status: Acute (4) COVID: Problem details: - continue remdesivir for 5 days. - dexamethasone 6 mg IV started yesterday, patient is no longer hypoxic, discontinue Status: Acute (5) UTI (urinary tract infection): Problem details: - Abnormal UA, mild bladder wall thickening on CT, occasional dysuria in the last few days. - UC: e coli, intermediate sensitivity to zosyn, will change to cipro/flagyl (to also cover for diverticulitis) Status: Acute (6) Diffuse large B cell lymphoma: Problem details: stage IV metastatic her last session of chemotherapy back in November 08. #1 DLBCL, advanced stage Returns to clinic prior to cycle 3 of R-CHOP for DLBCL. Tolerated cycle 2 without major issues. Interim PET-CT shows a great response. Will proceed with cycle 3 as scheduled, without dose reductions. DLBCL, advanced stage Patient is a 53 y.o. woman with previous medical history significant for tobacco use, hyperlipidemia, type 2 diabetes, COPD, and major depressive disorder with psychotic features, whose hematological history may be summarized as follows: August 07, 2023: MRI of the pelvis with and without contrast obtained to evaluate persistent/progressive pain of the left hip reportedly showed abnormalities on the left hip. Images not reviewed by [facility]. 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 September 14, 2023: Baseline PET-CT shows intensely FDG avid left pelvic mass along with FDG avid lymphadenopathy below diaphragm including spleen. September 28, 2023: Start of frontline therapy with R-CHOP. Status: Chronic (7) Diabetes mellitus type 2, controlled: Problem details: Glucose is 140s to 190s, continue Low-dose insulin sliding scale Status: Chronic (8) Pancytopenia due to chemotherapy: Problem details: - continue to hold ibuprofen while platelets are below 50, also hold pharmacologic prophylaxis - treat neutropenic fever as above - no indication for packed red blood cell transfusion at this time - monitor. Status: Acute Time Spent With Patient Total time spent: Today I spent 35 minutes rounding on the patient. Greater than 50% included discussing care with the patient and her , the team, reviewing data, updating and managing the care plan. Subjective Time Seen by Provider: 09:20 Date Seen: 01/20/24 Interval history: Ana wants to go home. She tells me that the ER provider told her she was only staying until morning and then could go home. I reminded her that when I spoke with her yesterday, I told her we'd be looking at her going home on Sunday if she remained afebrile because I would like her to be fever free for 48 hours, to have her neutrophils start to trend upward and ideally to have the urine culture with sensitivities back as well. Ana questioned the need for all of these things. At the end of our conversation, she said she felt better and wanted to leave AMA. I told her I want her to do well and that, while I recommend she stay for those reasons, that if she chooses to leave AMA I will send a prescription for oral antibiotics to her pharmacy and that she should follow-up with her oncologist by phone tomorrow to get her labs checked early this week. Just after I left her room, I saw her in the hallway and a gave him an update including my concerns about her leaving AMA. He shared those concerns as well and did not want her to leave AMA, but recognized it was her choice to do so. After he was in the room with her, I heard from nursing staff that she is now willing to stay. Exam Narrative: Exam Narrative: General: Angry. Awake, alert, oriented. No pallor. No jaundice. Oropharynx: Clear. Mucous membranes moist. Cardiovascular: Regular rate and rhythm. No murmurs, gallops, or rubs. Respiratory: Clear to auscultation bilaterally. No wheezes or crackles. Abdomen: Bowel sounds present. Soft, nondistended, nontender. Const: Vital Signs, click to edit/add: Vital Signs - 24 hr 01/19/24 12:40 01/19/24 13:51 01/19/24 15:00 Temperature 97.0 F L Pulse Rate Pulse Rate [Pulse Oximeter] 100 100 Respiratory Rate 16 16 Blood Pressure [Ri ght Arm] 93/64 Pulse Oximetry 95 96 Oxygen Delivery Me thod Room Air Room Air Oxygen Flow Rate 01/19/24 15:00 01/19/24 15:00 01/19/24 19:00 Temperature 97.0 F L 97.1 F L Pulse Rate 95 Pulse Rate [Pulse Oximeter] 100 93 Respiratory Rate 16 16 Blood Pressure [Ri ght Arm] 93/64 110/70 Pulse Oximetry 96 95 Oxygen Delivery Me thod Room Air Room Air Oxygen Flow Rate 2 01/19/24 23:00 01/19/24 23:00 01/20/24 00:43 Temperature 97.3 F L Pulse Rate Pulse Rate [Pulse Oximeter] 79 79 Respiratory Rate 18 18 Blood Pressure [Ri ght Arm] 104/69 Pulse Oximetry 95 95 Oxygen Delivery Me thod Room Air Oxygen Flow Rate 01/20/24 03:00 01/20/24 07:00 01/20/24 07:00 Temperature 98.2 F 98.2 F Pulse Rate Pulse Rate [Pulse Oximeter] 103 H 103 H 103 H Respiratory Rate 20 20 20 Blood Pressure [Ri ght Arm] 111/70 Pulse Oximetry 96 90 Oxygen Delivery Me thod Room Air Room Air Oxygen Flow Rate 01/20/24 09:45 Temperature Pulse Rate Pulse Rate [Pulse Oximeter] Respiratory Rate Blood Pressure [Ri ght Arm] Pulse Oximetry 92 Oxygen Delivery Me thod Room Air Oxygen Flow Rate Labs Labs: Laboratory Results - last 24 hr 01/20/24 08:15 WBC 0.68 L* RBC 2.48 L Hgb 8.8 L Hct 26.3 L MCV 106 H MCH 36 H MCHC 34 RDW Coeff of Randall 15.8 H Plt Count 39 L* Neut % (Auto) 30.9 L Lymph % (Auto) 39.7 [place] % (Auto) 13.2 H Eos % (Auto) 1.5 Baso % (Auto) 2.9 Neut # (Auto) 0.20 L Lymph # (Auto) 0.30 L [place] # (Auto) 0.10 Eos # (Auto) 0.00 Baso # (Auto) 0.00 Abs Immat Gran (auto) 0.10 Imm/Tot Granulo (auto) 11.8 Sodium 139 Potassium 3.4 L Chloride 107 Carbon Dioxide 27 Anion Gap 5 L BUN 9 Creatinine 0.5 Estimated Creat Clear 111.07 Estimated GFR 111 Glucose 92 Calcium 8.7
[2024-01-20] MEDS: POTASSIUM CHLORIDE 10 MEQ CAPSULE ER 40 MEQ PO (12:42)
[2024-01-20] MEDS: ATORVASTATIN CALCIUM 40 MG TABLET 80 MG PO (12:43)
[2024-01-20] MEDS: PIPERACILLIN/TAZOBACTAM 3.375 GM in 0.9 % SODIUM CHLORIDE Mini-bag 100 ML IVPB (15:25)
[2024-01-20] MEDS: CIPROFLOXACIN 400 MG/200 ML PIGGYBACK 200 MG IVPB (20:09)
[2024-01-20] MEDS: ACETAMINOPHEN 500 MG TABLET PO (20:10)
[2024-01-20] MEDS: metroNIDAZOLE 500 MG TABLET PO (21:51)
[2024-01-20] MEDS: CIPROFLOXACIN 500 MG TABLET PO (21:51)
[2024-01-21 03:00] VITALS: RESP 18
[2024-01-21] MEDS: OXYCODONE 5 MG TABLET PO (06:28)
[2024-01-21 06:44] LABS: Basophils Percent Auto 1.6 % (0.0-3.0); Eosinophils Percent Auto 0.8 % (0.0-7.0); Hematocrit 29.8 % (33.0-51.0); Hemoglobin* 9.9 gm/dL (12.0-16.0); Immature Granulocytes Pct Auto 0.8 %; Lymphocytes Percent Auto 23.6 % (20-44); Mean Corpuscular HGB Conc 33 gm/dL (32-36); Mean Corpuscular Hemoglobin 35 pg (26-34); Mean Corpuscular Volume 105 fL (80-100); Monocytes Percent Auto 12.6 % (0.0-11.0); Neutrophils Percent Auto 60.6 % (42.0-72.0); RDW Coefficient of Variation % 15.9 % (11.5-15.5); Red Blood Count 2.83 m/uL (4.00-5.20)
[2024-01-21 06:55] LABS: Chloride* 107 mmol/L (96-114); Sodium* 140 mmol/L (135-149)
[2024-01-21 06:56] LABS: Potassium* 4.2 mmol/L (3.6-5.1)
[2024-01-21 06:58] LABS: Creatinine* 0.6 mg/dL (0.5-1.5); Est. Creatinine Clearance* 92.56; Estimated Glomerular Filt Rate 107 ml/min
[2024-01-21 06:59] LABS: Anion Gap 4 mEq/L (7-15); Blood Urea Nitrogen* 6 mg/dL (7-30); Calcium* 9.1 mg/dL (8.4-10.6); Carbon Dioxide* 29 mmol/L (20-32); Glucose* 87 mg/dL (60-115)
--- NOTE | 2024-01-21 07:01 | PC.NURSE ---
End of shift report. Alert and oriented x4. Pain well managed with current regimen. IV cipro infusion started at 1999, at 2039 patient placed call light on reporting burning sensation to right forearm. Upon inspection IV was infiltrated, IV discontinued and warm pack applied. Patient expressed frustration over having several IV's fail, per patient she has been having the same issue while at outpatient infusions. Tailor Fitter updated Dr. Brown of infiltration and patient expressing desire to not have IV placed. New order for oral dose of cipro to balance missed IV dose, flagyl oral capsule ordered and one time dose of hydroxyzine 100mg at HS. Patient updated with plan and expressed desire to discharge home since she is no longer receiving IV antibiotics and would like to speak with MD. Dr. Brown went and addressed patients questions and patient did agree to stay the night. Independent with ambulation. Afebrile throughout the shift.
[2024-01-21 07:05] LABS: White Blood Count* 1.27 K/uL (4.50-11.00)
[2024-01-21 07:06] LABS: Platelet Count* 43 K/uL (140-440); Slide Review Reflex Yes
[2024-01-21 08:02] LABS: Slide Review Acceptable Review (Acceptable)
[2024-01-21 08:16] VITALS: BP 98/65; PULSE 101; RESP 18; TEMP 36.6; O2SAT 93
[2024-01-21] MEDS: GABAPENTIN 600 MG TABLET PO (08:18)
[2024-01-21] MEDS: CIPROFLOXACIN 500 MG TABLET PO (08:18)
[2024-01-21] MEDS: ATORVASTATIN CALCIUM 40 MG TABLET 80 MG PO (08:18)
[2024-01-21] MEDS: NICOTINE 21 MG PATCH 21 PATCH TRANSDERMA (08:18)
[2024-01-21] MEDS: buPROPion HCL 100 MG TAB.SR.12H PO (08:18)
[2024-01-21] MEDS: metroNIDAZOLE 500 MG TABLET PO (08:18)
--- NOTE | 2024-01-21 08:19 | PM.DS1 ---
DS: Providers Provider Time Seen by Provider: 07:40 Date Seen: 01/21/24 Date of admission: 01/19/24 15:23 Primary care physician: Ilana Steve Admitting Clinician: Shanna Molina MD Attending Physician on discharge: Leonila Norman MD Date of Discharge: 01/21/24 DS: Diagnosis Discharge Diagnosis (1) Neutropenic fever: Status: Acute Problem details: - suspect due to COVID, diverticulitis, E coli UTI - change to cipro/flagyl for UTI sensitivities - blood culture x1, no growth to date - MRSA naris screen refused by patient - status post 1 L IV fluid at the ED, was on IV fluid maintenance at a rate of 100 mL/hour x 1 night - continue pain control. 01/20 ANC up to 800. Afeb x 48 hours. D/c home today. (2) Sepsis: Status: Resolved Problem details: as above (3) Diverticulitis: Status: Acute Problem details: -Uncomplicated, seen on CT -Change to cipro/flagyl po for home (4) COVID: Status: Acute Problem details: - continue remdesivir for 5 days. - dexamethasone 6 mg IV started yesterday, patient is no longer hypoxic, discontinue (5) UTI (urinary tract infection): Status: Acute Problem details: - Abnormal UA, mild bladder wall thickening on CT, occasional dysuria in the last few days. - UC: e coli, intermediate sensitivity to zosyn, will change to cipro/flagyl (to also cover for diverticulitis) (6) Diffuse large B cell lymphoma: Status: Chronic Problem details: stage IV metastatic her last session of chemotherapy back in November 08. #1 DLBCL, advanced stage Returns to clinic prior to cycle 3 of R-CHOP for DLBCL. Tolerated cycle 2 without major issues. Interim PET-CT shows a great response. Will proceed with cycle 3 as scheduled, without dose reductions. DLBCL, advanced stage Patient is a 53 y.o. woman with previous medical history significant for tobacco use, hyperlipidemia, type 2 diabetes, COPD, and major depressive disorder with psychotic features, whose hematological history may be summarized as follows: August 07, 2023: MRI of the pelvis with and without contrast obtained to evaluate persistent/progressive pain of the left hip reportedly showed abnormalities on the left hip. Images not reviewed by [facility]. 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 September 14, 2023: Baseline PET-CT shows intensely FDG avid left pelvic mass along with FDG avid lymphadenopathy below diaphragm including spleen. September 28, 2023: Start of frontline therapy with R-CHOP. (7) Diabetes mellitus type 2, controlled: Status: Chronic Problem details: Glucose is 140s to 190s, resume home regimen (8) Pancytopenia due to chemotherapy: Status: Acute Problem details: - continue to hold ibuprofen while platelets are below 50, also hold pharmacologic prophylaxis - treat neutropenic fever as above - no indication for packed red blood cell transfusion at this time - monitor. (9) Cigarette smoker: Status: Acute Problem details: age 12 2ppd as nicotine patch on (10) Dehydration: Status: Resolved DS: Summary Hospital Course Hospital Course: Per H&P: Ana Fuller is a 53 year old female with past medical history of Diffuse Large B Cell Lymphoma, DM, COPD, HLD & severe recurrent depression with psychosis. Patient is being treated with R-CHOP for advanced stage DLBCL presenting today with fever, body aches, slight SOB and abdominal pain. In addition patient mentioned feeling nauseated, w/ some urinary symptoms but no cough or diarrhia, she has history of UTIs. Her last session of chemotherapy was a week ago. patient was admitted on November 19 for neutropenic fever that was due to multilobar pneumonia at that time.At the ED, patient was tachycardic, Hypoxic with an O2 sat level of 88%, fevers at 101.8. Absolute neutrophil count is 300. Urinalysis is positive. head CT w/ No acute intracranial findings; chest and abdomen CT showed Acute uncomplicated diverticulitis of the mid to distal sigmoid colon. No evidence of perforation or abscess. Ana was admitted on Zosyn for the treatment of diverticulitis and UTI in the setting of neutropenic fever and Remdesivir in dexamethasone for COVID with mild hypoxia. By the next hospital day she is no longer hypoxic and dexamethasone was discontinued. When urine culture came back, she was transition to Cipro/Flagyl for treatment of diverticulitis and E coli UTI. Since admission, she remained afebrile and reached a jasper ANC of 200. Today on the day of discharge her ANC is 800 and she remains afebrile. Please see diagnoses above for further details. Time Spent with Patient Time attestation: Total time spent providing and/or coordinating discharge services: Exam Narrative: Exam Narrative: General: Pleasant. Tearful. Awake, alert, oriented. No pallor. No jaundice. Oropharynx: Clear. Mucous membranes moist. Cardiovascular: Regular rate and rhythm. No murmurs, gallops, or rubs. Respiratory: Clear to auscultation bilaterally. No wheezes or crackles. Abdomen: Bowel sounds present. Soft, nondistended, nontender. Const: Vital Signs, click to edit/add: Vital Signs - 24 hr 01/20/24 09:45 01/20/24 11:00 01/20/24 15:00 Temperature 99.7 F H Pulse Rate [Pulse Oximeter] 103 H 104 H Respiratory Rate 20 18 Blood Pressure [Ri ght Arm] Pulse Oximetry 92 90 Oxygen Delivery Me thod Room Air Room Air 01/20/24 15:00 01/20/24 19:00 01/20/24 23:00 Temperature 99.6 F 97.8 F Pulse Rate [Pulse Oximeter] 104 H 101 H 101 H Respiratory Rate 18 18 18 Blood Pressure [Ri ght Arm] 101/62 106/69 Pulse Oximetry 95 96 Oxygen Delivery Me thod Room Air Room Air 01/20/24 23:00 01/21/24 03:00 01/21/24 08:16 Temperature 97.9 F Pulse Rate [Pulse Oximeter] 101 H Respiratory Rate 20 18 18 Blood Pressure [Ri ght Arm] 98/65 Pulse Oximetry 93 Oxygen Delivery Me thod Room Air DS: Data Data Completed and Pending Completed studies during hospitalization: Ordering Physician: Kali Pérez M.D. Date of Service: 01/18/24 Procedure(s): CT chest abdomen pelv w con Accession Number(s): [id number] cc: Kali Pérez M.D.; Ilana Steve M.D.~ For Patients: As a result of the Cures Act, medical imaging exams and procedure reports are released immediately into your electronic medical record. You may view this report before your referring provider. If you have questions, please contact your health care provider. INDICATION: Fever, body aches, flank pain, abdominal tenderness, hypoxia. History of lymphoma and COPD. TECHNIQUE: CT of the chest, abdomen, and pelvis acquired with 80 cc Isovue 370 IV contrast. Coronal and sagittal reconstructions. COMPARISON: CT chest, abdomen, pelvis 11/21/2023. PET-CT 11/08/2023. FINDINGS: CHEST: Cardiovascular structures: Normal heart size. Normal caliber thoracic aorta and central pulmonary arteries. The distal subsegmental pulmonary artery branches are not well evaluated. Otherwise no acute pulmonary embolism identified. Coronary artery and aortic vascular calcifications. Mediastinum and criselda: No pathologically enlarged lymph nodes. Trace pericardial effusion. Lungs and pleura: No focal consolidation, pleural effusion, or pneumothorax. Resolution of the previously seen lung infiltrates. Stable 5 mm noncalcified pleural-based pulmonary nodule in the posterior right upper lobe (series 4, image 27). Stable 3 mm noncalcified pulmonary nodule along the left major fissure (image 52). No central endobronchial lesion or significant bronchial wall thickening. Chest wall: No mass or adenopathy. Bones: Degenerative changes of the spine. Old bilateral rib fractures. No suspicious osseous lesion. ABDOMEN/PELVIS: Liver: Normal in size and attenuation. No suspicious masses. Gallbladder and bile ducts: Cholecystectomy. No biliary dilation. Spleen: Enlarged measuring 13 cm in length, unchanged. No focal splenic lesions. Pancreas: Unremarkable. Adrenal glands: Unremarkable. Kidneys, Ureters, and Bladder: Symmetric enhancement. No hydronephrosis or obstructing stones. Mild circumferential bladder wall thickening. Reproductive organs: Hysterectomy. GI tract/Peritoneum: No small bowel dilation. Moderate amount of stool throughout the colon. Colonic diverticulosis. There is wall thickening of the mid to distal sigmoid colon with surrounding inflammatory fat stranding. Findings are compatible with acute diverticulitis. No intraperitoneal free air or fluid. No evidence of abscess. The appendix is not identified. Vasculature : Abdominal aorta is normal in caliber. Aortoiliac vascular calcifications. Mesenteric arteries appear patent. Lymph nodes: Stable mildly prominent left upper periaortic lymph node. No lymphadenopathy by size criteria. Abdominal wall: Unremarkable. Bones: Heterogeneous sclerosis throughout the left sacrum, left iliac bone, and left acetabulum is not significantly changed. IMPRESSION: 1. Acute uncomplicated diverticulitis of the mid to distal sigmoid colon. No evidence of perforation or abscess. 2. No acute pulmonary embolism identified, however the distal subsegmental branches are not well evaluated. 3. Stable heterogeneous sclerosis throughout the left sacrum, left iliac bone, and left acetabulum. 4. Mild bladder wall thickening. Correlate with urinalysis. 5. Stable mild splenomegaly. 6. No other acute findings or lymphadenopathy in the chest, abdomen, or pelvis. Please note that all CT scans at this facility use dose modulation, iterative reconstruction, and/or weight-based dosing when appropriate to reduce radiation dose to as low as reasonably achievable. Dictated by Lolly Michelle MD @ 01/18/2024 11:52:02 PM (Electronically Signed) Ordering Physician: Kali Pérez M.D. Date of Service: 01/18/24 Procedure(s): CT head/brain wo con Accession Number(s): [id number] cc: Kali Pérez M.D.; Ilana Steve M.D.~ For Patients: As a result of the Cures Act, medical imaging exams and procedure reports are released immediately into your electronic medical record. You may view this report before your referring provider. If you have questions, please contact your health care provider. INDICATION: Headache, fever. History of lymphoma. COMPARISON: MRI brain 01/17/2024. TECHNIQUE: CT of the head without IV contrast. Coronal and sagittal reconstructions. FINDINGS: Brain: The known punctate left parietal lobe infarcts seen on MRI are not visualized by CT. No CT evidence of acute infarct. Old lacunar infarct in the left cerebellum. No intracranial hemorrhage or abnormal extra-axial fluid collections. No mass effect or midline shift. Normal caliber ventricular system. Skull base and calvarium: Polyp or mucous retention cyst in the left maxillary sinus. The visualized paranasal sinuses and mastoid air cells are otherwise clear. The visualized orbits are grossly unremarkable. No acute fracture identified. Soft tissues: Unremarkable. IMPRESSION: 1. No acute intracranial findings. 2. The known punctate left parietal lobe infarcts seen on MRI are not visualized by CT. Please note that all CT scans at this facility use dose modulation, iterative reconstruction, and/or weight-based dosing when appropriate to reduce radiation dose to as low as reasonably achievable. Dictated by Lolly Michelle MD @ 01/18/2024 11:28:02 PM (Electronically Signed) Labs on day of discharge: Labs from last 24 hours 01/21/24 01/20/24 06:21 08:15 WBC 1.27 L* 0.68 L* RBC 2.83 L 2.48 L Hgb 9.9 L 8.8 L Hct 29.8 L 26.3 L MCV 105 H 106 H MCH 35 H 36 H MCHC 33 34 RDW Coeff of Randall 15.9 H 15.8 H Plt Count 43 L* 39 L* Neut % (Auto) 60.6 30.9 L Lymph % (Auto) 23.6 39.7 [place] % (Auto) 12.6 H 13.2 H Eos % (Auto) 0.8 1.5 Baso % (Auto) 1.6 2.9 Neut # (Auto) 0.80 L 0.20 L Lymph # (Auto) 0.30 L 0.30 L [place] # (Auto) 0.20 0.10 Eos # (Auto) 0.00 0.00 Baso # (Auto) 0.00 0.00 Abs Immat Gran (auto) 0.00 0.10 Imm/Tot Granulo (auto) 0.8 11.8 Diff Slide Review Acceptable Review Sodium 140 139 Potassium 4.2 3.4 L Chloride 107 107 Carbon Dioxide 29 27 Anion Gap 4 L 5 L BUN 6 L 9 Creatinine 0.6 0.5 Estimated Creat Clear 92.56 111.07 Estimated GFR 107 111 Glucose 87 92 Calcium 9.1 8.7 Preliminary micro results at discharge 01/18/24 21:05 Blood Culture - Preliminary Blood NO GROWTH AFTER 48 HOURS Discharge Plan Discharge Disposition: Home, Self-Care Date of Admission: 01/19/24 15:23 Attending Provider on Discharge: Leonila Norman Primary Care Provider: Ilana Steve Condition: Improved Anticipated Discharge Date/Time: 01/21/24 09:30 Discharge Medications: New ciprofloxacin HCl 500 mg Tablet 500 mg PO BID 8 Days Qty: 16 0RF metronidazole 500 mg Tablet 500 mg PO TID 8 Days Qty: 24 0RF Lactobacillus acidophilus Capsule 100 mmu cells PO TID Qty: 90 0RF sennosides-docusate sodium [Senna-S] 8.6-50 mg tablet 2 tab-cap PO QHS PRN (Reason: constipation) Qty: 60 0RF Continued gabapentin 600 mg tablet 600 mg PO TID Qty: 270 3RF bupropion HCl 100 mg tablet sustained-release 12 hr 100 mg PO QAM Qty: 90 3RF sumatriptan succinate 100 mg tablet 100 mg PO Q2H PRN (Reason: migraine headache) Rx Instructions: ONE TAB AT ONSET OF HEADACHE, MAY REPEAT ONCE IN 2 HRS, MAX 200 MG/24 HRS acetaminophen [Acetaminophen Extra Strength] 500 mg tablet 500 mg PO Q6H PRNQty: 60 0RF cyclobenzaprine 10 mg tablet 10 mg PO 3XD PRN (Reason: muscle spasm) hydroxyzine HCl 50 mg tablet 50 - 100 mg PO QPM PRN (Reason: anxiety) prochlorperazine maleate 10 mg tablet 10 mg PO Q6H PRN ondansetron HCl 8 mg tablet 8 mg PO TID PRN nicotine 21 mg/24 hr patch 24 hour 1 patch topical DAILY PRN metformin 500 mg tablet 2,000 mg PO DAILY ipratropium-albuterol 0.5 mg-3 mg(2.5 mg base)/3 mL solution for nebulization 3 ml inhalation TID PRN lidocaine HCl [Lidocaine Viscous] 2 % solution 5 ml mucous membrane 5XD PRN (Reason: pain) Patient Comments: MIXES WITH DIPHENHYDRAMINE AND MAALOX TO MAKE MAGIC MOUTHWAS oxycodone 5 mg tablet 10 mg PO DAILY Rx Instructions: USUALLY TAKES 2 TABS IN THE MORNING AND MORE LATER NEEDED oxycodone 5 mg tablet 5 - 10 mg PO Q4-6H PRN Rx Instructions: TAKES 2 IN THE MORNING, PLUS MORE LATER IF NEEDED. budesonide-formoterol [Symbicort] 160-4.5 mcg/actuation HFA aerosol inhaler 2 puff inhalation BID Qty: 10.2 2RF albuterol sulfate [Ventolin HFA] 90 mcg/actuation HFA aerosol inhaler 2 puff inhalation Q4H PRN (Reason: shortness of breath or wheezing) Qty: 8.5 11RF Mounjaro 15 mg/0.5 mL pen injector 15 mg subcut QWEEK Qty: 2 0RF Patient Comments: SUNDAY Held atorvastatin 80 mg tablet 80 mg PO DAILY Hold Instructions: Resume on 02/01/24. hold while on ciprofloxacin ibuprofen 800 mg tablet 1,600 mg PO QAM Hold Instructions: Resume on 02/01/24. Do not take while platelets are less than 100 Patient Comments: USUALLY TAKES 2 TABS EVERY MORNING, PLUS MORE LATER IF NEEDED ibuprofen [IBU] 800 mg tablet 800 mg PO TID PRN Hold Instructions: Resume on 02/01/24. Do not take while platelets are less than 100 Rx Instructions: TAKES 2 IN THE MORNING PLUS MORE LATER IF NEEDED Discharge Orders: Discharge Order (Routine); Ordered 01/21/24 Ordered By: Leonila Norman Patient Education: Ciprofloxacin (By mouth), Metronidazole (By mouth), Probiotic (By mouth), Senna (By mouth) (Sen, Senna-lax), COVID-19 (Coronavirus Disease 2019) (DC) Additional Instructions: Call your oncologist to determine when next to get labs and have f/u Activity Level: No Restrictions Discharge Diet: Regular Follow Up Appointments: Ilana Steve MD [Primary Care Provider] - 01/24/24 1:45 pm ([facility] for follow-up, and check BMP, EKG (while on cipro and hydroxyzine together).) Forms: [employer] Info Instructions
[2024-01-21] MEDS: BUDESONIDE FORMOTEROL IH (08:21)
== END 2024-01-21 10:21 | disposition home or self-care (01) | DRG 808 ==
LOC: ED 23:32 → MEDSURG 01-19 00:31
PROVIDERS: Admitting Provider Family Medicine; Emergency Provider Emergency Medicine; PCP Emergency Medicine; Visit Provider Student in an Organized Health Care Education/Training Program
DX: D70.3 Neutropenia due to infection (principal); A41.9 Sepsis, unspecified organism; J96.01 Acute respiratory failure with hypoxia; U07.1 COVID-19; K57.32 Diverticulitis of large intestine without perforation or abscess without bleeding; F33.3 Major depressive disorder, recurrent, severe with psychotic symptoms; N39.0 Urinary tract infection, site not specified; C83.36 Diffuse large B-cell lymphoma, intrapelvic lymph nodes; E86.0 Dehydration; G89.3 Neoplasm related pain (acute) (chronic); B96.20 Unspecified Escherichia coli [E. coli] as the cause of diseases classified elsewhere; R50.81 Fever presenting with conditions classified elsewhere; D61.810 Antineoplastic chemotherapy induced pancytopenia; T45.1X5A Adverse effect of antineoplastic and immunosuppressive drugs, initial encounter; E11.40 Type 2 diabetes mellitus with diabetic neuropathy, unspecified; J44.9 Chronic obstructive pulmonary disease, unspecified; E11.65 Type 2 diabetes mellitus with hyperglycemia; Z79.4 Long term (current) use of insulin; R30.0 Dysuria; K59.09 Other constipation; Z87.440 Personal history of urinary (tract) infections; I25.10 Atherosclerotic heart disease of native coronary artery without angina pectoris; F17.210 Nicotine dependence, cigarettes, uncomplicated; E78.5 Hyperlipidemia, unspecified
CPT/HCPCS: 36415; 70450; 71260; 74177; 80048; 80053; 81001; 82962; 83605; 83690; 83735; 84145; 85025; 86140; 87040; 87081; 87086; 87186; 87631; 94761; 99285; G0378; A9270; J0744; J1100; J1171; J1650; J2405; J2543; J3370; J7030; J7050; J7120; Q9967; S4990

== ENCOUNTER 2024-06-03 10:19 | Outpatient (CLI) | payer OTHER, SELFPAY ==
[2024-06-03 12:46] LABS: Lab Add On Test New Spec Needed
== END 2024-06-03 10:20 | disposition home or self-care (01) ==
PROVIDERS: PCP Emergency Medicine; Visit Provider Emergency Medicine
DX: E78.2 Mixed hyperlipidemia (principal)
CPT/HCPCS: 80061